=== PATIENT | female | born 1945 | race Caucasian/White ===

== ENCOUNTER 2016-04-24 10:50 | Emergency (ER) | payer MEDICARE, OTHER ==
[~2016-04-24 10:50] MED LIST: /ADVA50050; ACET-654 PO; ACET500C; ADV100INH INH; ADV250INH INH; AMLO10TA2 PO; DULC10SU2 PR; ECOT325T5; ENEMENE6 PR; IPRASOL4 INH; MELA0.02 PO; MILKSUS PO; NICO14DI3 TD; NICO21DI4; OMEP20CA3 PO; ONDA1TAB15 PO; ONDA1TAB16 PO; SALI0.653; SENN8.6T7 PO; SENN8.6T76 PO; SERT-141 PO; VITA500T; VITMTA PO; ZOLO25TA PO
[2016-04-24 11:56] LABS: BASO # 0.1 K/mm3 (0.0-0.2); BASO % 0.9 % (0.0-1.0); EOS # 0.2 K/mm3 (0.0-0.50); EOS % 2.1 % (0.0-3.0); LARGE UNSTAINED CELL # 0.3 K/mm3 (0.0-0.4); LARGE UNSTAINED CELL % 2.9 % (0.0-4.0); LYMPH # 3.2 K/mm3 (1.5-4.5); LYMPH % 36.6 % (24.0-44.0); MEAN CORPUSCULAR HEMOGLOBIN 31.7 pg (27.0-33.0); MEAN CORPUSCULAR HGB CONC 33.7 g/dl (32.0-36.5); MEAN CORPUSCULAR VOLUME 94.2 fl (80.0-96.0); MONO # 0.5 K/mm3 (0.0-0.8); MONO % 5.8 % (0.0-5.0); NEUTROPHILS # 4.5 K/mm3 (1.8-7.7); NEUTROPHILS % 51.7 % (36.0-66.0); PLATELET COUNT, AUTOMATED 375 k/mm3 (150-450); RED CELL DISTRIBUTION WIDTH 14.4 % (11.5-14.5); WHITE BLOOD COUNT 8.7 K/mm3 (4.0-10.0)
[2016-04-24 12:02] LABS: INR 0.97
[2016-04-24 12:08] LABS: ANION GAP 8 MEQ/L (8-16); BLOOD UREA NITROGEN 18 MG/DL (7-18); CALCIUM LEVEL 10.1 MG/DL (8.8-10.2); CARBON DIOXIDE LEVEL 29 MEQ/L (21-32); CHLORIDE LEVEL 101 MEQ/L (98-107); CREATININE FOR GFR 0.83 MG/DL (0.55-1.02); GLOMERULAR FILTRATION RATE > 60.0 (>39); GLUCOSE, FASTING 108 MG/DL (83-110); POTASSIUM SERUM 3.9 MEQ/L (3.5-5.1); SODIUM LEVEL 138 MEQ/L (136-145)
[2016-04-24 12:11] LABS: ALBUMIN 4.3 GM/DL (3.2-5.2); BILIRUBIN,DIRECT 0.2 MG/DL (0.0-0.2); BILIRUBIN,TOTAL 0.5 MG/DL (0.2-1.0); TOTAL PROTEIN 8.6 GM/DL (6.4-8.2)
--- NOTE | 2016-04-24 12:16 | REP ---
CT HEAD WITHOUT CONTRAST: HISTORY: Headache. COMPARISON: 04/17/2015. An area of decreased attenuation is present in the left thalamus. This represents an old lacunar infarction. Areas of decreased attenuation are present in the periventricular and subcortical white matter. This represents small vessel ischemic disease. There is no intraparenchymal hemorrhage, mass or midline shift. A shunt is present in the anterior horn of the right lateral ventricle. The ventricles are slightly increased in size consistent with minimal hydrocephalus. There is no extracerebral collection. The visualized sinuses are clear. 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 IMPRESSION: 1. 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 2. Small vessel ischemic disease. 3. A shunt is present in the right lateral ventricle. There has been a slight increase in size of the ventricular system consistent with minimal hydrocephalus. 4. 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 Signed by Fritz Mcclure MD 04/24/2016 12:19 P
--- NOTE | 2016-04-24 12:16 | REP ---
Clinical: Headache. Comparison: 03/07/2016 . Findings: The mediastinum and cardiac silhouette are stable and within normal limits for portable technique. The lung ulrich are clear without acute consolidation, effusion, or pneumothorax. Skeletal structures are intact. Ventriculoperitoneal shunt is identified and appears intact from the neck through the visualized upper abdomen. Impression: Normal portable chest x-ray Signed by Cordell Ramos MD 04/24/2016 12:08 P
--- NOTE | 2016-04-24 12:23 | REP ---
Clinical: Altered mental status. Comparison: 02/27/2016 Technique: AP and lateral views of the skull along with AP view of the abdomen. Findings: In conjunction with the chest x-ray, the ventriculoperitoneal shunt extending from the region of the right lateral ventricle along the right side of the body appears contiguous into the abdomen. Impression: Ventriculoperitoneal shunt appears contiguous from the calvarium into the right mid abdomen. Signed by Cordell Ramos MD 04/24/2016 12:14 P
[2016-04-24] MEDS ORDERED: MORPHINE 2 MG/ML 1ML SYRINGE As Ordered ONE (12:35)
--- NOTE | 2016-04-24 14:44 | EDDOCDS ---
Physician Documentation [facility] Name: Suad Murcia Age: 70 yrs Sex: Female : 1945 Arrival Date: 04/24/2016 Time: 10:50 Bed Radiology Private MD: Unknown, Family Disposition: 04/24/16 13:20 Transfer ordered to [facility]. Diagnosis are Hydrocephalus, Headache. - Reason for transfer: Higher level of care. - Accepting physician is Dr. Wright. - Condition is Critical. - Problem is new. - Symptoms are unchanged. Historical: - Allergies: SULFA (SULFONAMIDES); - Home Meds: 1. look at Dr. Currie list from [email or web address] 2. Tylenol 325 mg Oral tab 2 tabs every 4 hours as needed 3. amlodipine 10 mg Oral tab 1 tab once daily 4. multivitamin Oral tab 1 tablet daily 5. omeprazole 20 mg Oral cpDR 1 cap once daily 6. Zofran (as hydrochloride) 8 mg Oral tab 1 tab daily prn 7. Advair Diskus 250-50 mcg/dose Inhl dsdv 1 puff 2 times per day 8. Senna with Docusate Sodium 8.6-50 mg oral tab 1 tabs hs prn 9. Sertraline 50 mg nightly - PMHx: Cataracts; cerebrospinal fluid device; COPD; Hypertension; GERD; Osteoarthritis; shunt; - PSHx: Splenectomy; 3 brain surgeries; - Social history: Smoking status: Patient states former smoker of tobacco. No barriers to communication noted, The patient speaks fluent Hebrew, Speaks appropriately for age. - Family history: Not pertinent. - : The pt / caregiver states he / she is not on anticoagulants. Unable to Verify Home Med List with the patient / caregiver. Note see note. - Exposure Risk Screening:: None identified. Vital Signs: 04/24 10:52 BP 138 / 94; Pulse 103; Resp 18; Temp 99.1(O); Pulse Ox 95% ; Weight 51.71 kg / 114 cmb lbs; Height 5 ft. 1 in. (154.94 cm); Pain 9/10; 11:21 BP 141 / 75 (auto/); hs1 11:25 Pulse 90 MON; Pulse Ox 96% ; hs1 11:36 BP 145 / 70 (auto/); hs1 11:36 Pulse 90 MON; Pulse Ox 90% ; hs1 11:48 Pulse 84 MON; Pulse Ox 93% ; hs1 11:51 BP 120 / 72 (auto/); hs1 12:06 Pulse 86 MON; Pulse Ox 92% ; hs1 12:06 BP 125 / 70 (auto/); hs1 12:21 BP 118 / 63 (auto/); hs1 12:21 Pulse 88 MON; Pulse Ox 93% ; hs1 12:36 BP 154 / 79 (auto/); hs1 12:36 Pulse 86 MON; Pulse Ox 94% ; hs1 12:51 Pulse 84 MON; hs1 12:51 BP 139 / 77 (auto/); hs1 13:05 Pulse 78 MON; hs1 13:05 Pain 4/10; hs1 13:06 BP 139 / 73 (auto/); hs1 13:21 BP 136 / 78 (auto/); hs1 13:21 Pulse 82 MON; Pulse Ox 91% ; hs1 14:40 BP 133 / 79; Pulse 81; Resp 18; Temp 97.6(TE); Pulse Ox 98% on R/A; Pain 4/10; hs1 10:52 Body Mass Index 21.54 (51.71 kg, 154.94 cm) cmb MDM: 11:20 RN interventions must not delay CT ordered. ml 11:20 Funeral Home Assistant/Pulse Ox/q 15 min VS ordered. ml 11:20 Accucheck ordered. ml 11:20 IV Saline Lock ordered. ml 11:20 Patient must be on CC stretcher and weighed via bed scale ordered. ml 11:20 Rhythm Strip to chart ordered. ml 11:21 Basic Metabolic Profile Ordered. EDMS 11:21 CBC with Diff Ordered. EDMS 11:21 Partial Thromboplastin Time Ordered. EDMS 11:21 Prothrombin Time Profile\E\INR Ordered. EDMS 11:22 Chest, 1 View Ordered. EDMS 11:22 Type & Screen Ordered. EDMS 11:22 CT Head Without Contrast Ordered. EDMS 11:22 ECG WITH READING ER PHYS+CARDIAG ordered. EDMS 11:22 Ammonia (Little Green Tube on Ice, Not Pea Green) Ordered. EDMS 11:22 Liver Profile Ordered. EDMS 11:36 Shunt Series Ordered. EDMS 12:20 Troponin Ordered. EDMS 12:20 Lipase Ordered. EDMS 12:24 CBC with Diff Reviewed. br1 12:24 Liver Profile Reviewed. br1 12:24 Basic Metabolic Profile Reviewed. br1 12:24 Partial Thromboplastin Time Reviewed. br1 12:24 Prothrombin Time Profile\E\INR Reviewed. br1 12:24 Ammonia (Little Green Tube on Ice, Not Pea Green) Reviewed. br1 12:24 CT Head Without Contrast Reviewed. br1 12:24 Chest, 1 View Reviewed. br1 12:25 Urinalysis Ordered. EDMS 12:25 Urine Culture Ordered. EDMS 12:30 morphine 2 mg IVP once; prn pain ordered. br1 13:52 Financial registration complete. mm15 13:55 [facility] Payment Agreement was scanned into [employer] and attached to record. mm15 Administered Medications: 12:40 Drug: morphine 2 mg [morphine 2 mg/mL intravenous cartridge (1 mL)] Route: IVP; Site: hs1 left antecubital; 13:05 Follow up: Pain 4/10 Adult; Response: Pain is decreased hs1 Signatures: Dispatcher [employer] EDGege Jimenez MD MD ml Peters, Mary RN YOON [facility] Jaspreet Yates RN RN Bhavesh Renteria MD MD br1 Annette Crowley RN RN hs1 Krysta Schuler mm15 The chart was reviewed and I authenticate all verbal orders and agree with the evaluation and treatment provided.Corrections: (The following items were deleted from the chart) 11:54 11:20 Neuro VS q 15 Minutes ordered. ml ttb 11:54 11:20 Stroke assessment pack to bedside ordered. ml ttb Attachments: 13:55 [facility] Payment Agreement mm15 MTDD
--- NOTE | 2016-04-24 14:45 | EDDOCDS ---
Nurse's Notes [facility] Name: Suad Murcia Age: 70 yrs Sex: Female : 1945 Arrival Date: 04/24/2016 Time: 10:50 Bed Radiology Private MD: Rosemary, Family Diagnosis: Hydrocephalus;Headache Presentation: 04/24 11:08 Presenting complaint: Patient states: chronic headache due to aneurysms in head. was dy seen by Dr. Currie today and advised to come to ER for increased confusion with some neurologic deficits. This patient has no additional risk factors. Adult Sepsis Screening: The patient does not have new or worsening altered mentation. Patient's respiratory rate is less than 22. Systolic blood pressure is greater than 100. Patient has a qSOFA score of 0- Negative Sepsis Screen. Suicide/Homicide risk assessment- the patient denies having any suicidal and/or homicidal ideations and does not present with any other emotional, behavioral or mental health complaints. 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 Transition of care: patient was not received from another setting of care. 11:08 Acuity: TRINIDAD Level 3 dy 11:08 Method Of Arrival: Walkin/Carried/Asstd dy Triage Assessment: 11:11 Headache History: This patient has a history of headaches and the character of this dy headache is like all previous headaches. General: Appears in no apparent distress. Pain: Location: head Pain currently is 9 out of 10 on a pain scale. Pain began years ago. Also complains of inability to perform activities of daily living. Neurological: Level of Consciousness is awake, alert, obeys commands, Oriented to person, place, time. Historical: - Allergies: SULFA (SULFONAMIDES); - Home Meds: 1. look at Dr. Currie list from [employer] 2. Tylenol 325 mg Oral tab 2 tabs every 4 hours as needed 3. amlodipine 10 mg Oral tab 1 tab once daily 4. multivitamin Oral tab 1 tablet daily 5. omeprazole 20 mg Oral cpDR 1 cap once daily 6. Zofran (as hydrochloride) 8 mg Oral tab 1 tab daily prn 7. Advair Diskus 250-50 mcg/dose Inhl dsdv 1 puff 2 times per day 8. Senna with Docusate Sodium 8.6-50 mg oral tab 1 tabs hs prn 9. Sertraline 50 mg nightly - PMHx: Cataracts; cerebrospinal fluid device; COPD; Hypertension; GERD; Osteoarthritis; shunt; - PSHx: Splenectomy; 3 brain surgeries; - Social history: Smoking status: Patient states former smoker of tobacco. No barriers to communication noted, The patient speaks fluent Paraguayan, Speaks appropriately for age. - Family history: Not pertinent. - : The pt / caregiver states he / she is not on anticoagulants. Unable to Verify Home Med List with the patient / caregiver. Note see note. - Exposure Risk Screening:: None identified. Screenin:27 Screening information is obtained from the patient. Fall risk: No risks identified. hs1 Assistance ADL's: Requires assistance with. Abuse/DV Screen: The patient / caregiver reports he/she is: not in a situation that causes fear, pain or injury. Nutritional screening: No deficits noted. Advance Directives: Currently, there is. home support is adequate. Assessment: 11:24 General: Appears in no apparent distress, comfortable, Behavior is appropriate for age, hs1 cooperative. Pain: Location: face Pain currently is 9 out of 10 on a pain scale. Pain: Quality of pain is described as aching. Neurological: Level of Consciousness is awake, alert, obeys commands. Respiratory: Airway is patent Respiratory effort is even, unlabored, Respiratory pattern is regular, symmetrical. GI: to gravity drainage. Site clean. COOKS DRAIN located near gallbladder. Patient states was placed February 2016. Derm: Skin is pink, warm & dry. 11:43 General: labs drawn, IV started for primary RN. Daughter at bedside. Pt conversing ttb appropriately. A&Ox3. Slight headache. NAD noted.. 11:56 General: Patient to radiology for shunt series. MD aware. . hs1 12:47 General: Kidwai in to see patient at this time. Pt in distress and pain when he is hs1 palpating shunt. Patient complaining of intense pain, morphine administered at this time. . 13:08 General: Appears in no apparent distress, Behavior is appropriate for age, cooperative. hs1 Pain: Location: headache Pain currently is 4 out of 10 on a pain scale. Quality of pain is described as aching. Pain: Pain does not radiate. Is chronic Pain started over 2 weeks ago, and how not gotten better. Pt reports getting worse. Respiratory: Airway is patent Respiratory effort is even, unlabored, Respiratory pattern is regular, symmetrical, Derm: Skin is pink, warm & dry. normal. 14:05 General: Appears in no apparent distress, comfortable, Behavior is appropriate for age, hs1 cooperative. 14:05 Neurological: Level of Consciousness is awake, alert, obeys commands, Oriented to hs1 person, place, time, Could not remember day of the week, however understands April 2016 and is alert to person and place appropriately. . Internet Marketing Specialist are equal bilaterally Moves all extremities. Speech is normal, Facial symmetry appears normal. Respiratory: Airway is patent Respiratory effort is even, unlabored, Respiratory pattern is regular, symmetrical. Respiratory: Airway is patent Respiratory effort is even, unlabored, Respiratory pattern is regular, symmetrical, Breath sounds are coarse bilaterally. GI: Abdomen is non- distended to gravity drainage. Site clean. cooks drain to gall bladder. Derm: Skin is pink, warm & dry. normal. 14:30 General: Appears in no apparent distress, comfortable, no other needs noted at present. hs1 Patient resting and aware of transfer to [facility]. No questions at this time. . Neurological: Level of Consciousness is awake, alert, Facial symmetry appears normal. Respiratory: Airway is patent Respiratory effort is even, unlabored, Respiratory pattern is regular, symmetrical. Derm: Skin is pink, warm & dry. normal. Vital Signs: 10:52 BP 138 / 94; Pulse 103; Resp 18; Temp 99.1(O); Pulse Ox 95% ; Weight 51.71 kg; Height 5 cmb ft. 1 in. (154.94 cm); Pain 9/10; 11:21 BP 141 / 75 (auto/); hs1 11:25 Pulse 90 MON; Pulse Ox 96% ; hs1 11:36 BP 145 / 70 (auto/); hs1 11:36 Pulse 90 MON; Pulse Ox 90% ; hs1 11:48 Pulse 84 MON; Pulse Ox 93% ; hs1 11:51 BP 120 / 72 (auto/); hs1 12:06 Pulse 86 MON; Pulse Ox 92% ; hs1 12:06 BP 125 / 70 (auto/); hs1 12:21 BP 118 / 63 (auto/); hs1 12:21 Pulse 88 MON; Pulse Ox 93% ; hs1 12:36 BP 154 / 79 (auto/); hs1 12:36 Pulse 86 MON; Pulse Ox 94% ; hs1 12:51 Pulse 84 MON; hs1 12:51 BP 139 / 77 (auto/); hs1 13:05 Pulse 78 MON; hs1 13:05 Pain 4/10; hs1 13:06 BP 139 / 73 (auto/); hs1 13:21 BP 136 / 78 (auto/); hs1 13:21 Pulse 82 MON; Pulse Ox 91% ; hs1 14:40 BP 133 / 79; Pulse 81; Resp 18; Temp 97.6(TE); Pulse Ox 98% on R/A; Pain 4/10; hs1 10:52 Body Mass Index 21.54 (51.71 kg, 154.94 cm) cmb Vitals: 10:52 Log In Time: April 24, 2016 at 10:50. cmb ED Course: 10:51 Patient visited by Susan Grissom. cmb 10:51 Patient moved to Waiting cmb 10:52 Unknown, Family Dr is Private Physician. cmb 10:54 Patient moved to Pre RCE cmb 11:10 Triage Initiated dy 11:16 Patient moved to 13 mlb1 11:28 The patient / caregiver is instructed regarding the plan of care and ED course. hs1 11:31 Patient visited by Robyn Coulter PCA. jlf 11:31 EKG done. (by ED staff). Reviewed by Gege Wills MD. jlf 11:32 Patient visited by Robyn Coulter PCA. jlf 11:42 Liver Profile Sent. ttb 11:42 Ammonia (Little Green Tube on Ice, Not Pea Green) Sent. ttb 11:42 Basic Metabolic Profile Sent. ttb 11:42 CBC with Diff Sent. ttb 11:42 Partial Thromboplastin Time Sent. ttb 11:42 Prothrombin Time Profile\E\INR Sent. ttb 11:42 Type & Screen Sent. ttb 11:42 Inserted peripheral IV: 20gauge IV in left antecubital area and blood collected. ttb Patient tolerated the procedure well. Labs drawn. (by ED staff). 11:43 Patient visited by Sarahy Valle RN. ttb 11:56 Patient moved to Radiology hs1 12:02 Bhavesh Renteria MD is Attending Physician. br1 12:18 Patient visited by Bhavesh Renteria MD. br1 12:19 CT Head Without Contrast Returned. EDMS 12:19 Chest, 1 View Returned. EDMS 12:31 Troponin Sent. ttb 12:31 Lipase Sent. ttb 13:14 CT Head Without Contrast Returned. EDMS 13:14 Shunt Series Returned. EDMS 13:46 Report given to Jesse RAUSCH. hs1 13:55 [facility] Payment Agreement was scanned into [employer] and attached to record. mm15 14:40 No procedures done that require assistance. hs1 Administered Medications: 12:40 Drug: morphine 2 mg [morphine 2 mg/mL intravenous cartridge (1 mL)] Route: IVP; Site: hs1 left antecubital; 13:05 Follow up: Pain 07/22 Adult; Response: Pain is decreased hs1 Order Results: Lab Order: Basic Metabolic Profile; SPEC'M 04/24/16 11:38 Test: GLUCOSE, FASTING; Value: 108; Range: 83-110; Units: MG/DL; Status: F Test: BLOOD UREA NITROGEN; Value: 18; Range: 7-18; Units: MG/DL; Status: F Test: CREATININE FOR GFR; Value: 0.83; Range: 0.55-1.02; Units: MG/DL; Status: F Test: GLOMERULAR FILTRATION RATE; Value: > 60.0; Range: >39; Status: F Test: SODIUM LEVEL; Value: 138; Range: 136-145; Units: MEQ/L; Status: F Test: POTASSIUM SERUM; Value: 3.9; Range: 3.5-5.1; Units: MEQ/L; Status: F Test: CHLORIDE LEVEL; Value: 101; Range: 98-107; Units: MEQ/L; Status: F Test: CARBON DIOXIDE LEVEL; Value: 29; Range: 21-32; Units: MEQ/L; Status: F Test: ANION GAP; Value: 8; Range: 8-16; Units: MEQ/L; Status: F Test: CALCIUM LEVEL; Value: 10.1; Range: 8.8-10.2; Units: MG/DL; Status: F Test Note: ; Units are mL/min/1.73 m2 Chronic Kidney Disease Staging per NKF: Stage I & II GFR >=60 Normal to Mildly Decreased Stage III GFR 30-59 Moderately Decreased Stage IV GFR 15-29 Severely Decreased Stage V GFR <15 Very Little GFR Left ESRD GFR <15 on ORTHOPEDIC NURSE PRACTITIONER Lab Order: CBC with Diff; SPEC'M 04/24/16 11:38 Test: WHITE BLOOD COUNT; Value: 8.7; Range: 4.0-10.0; Units: K/mm3; Status: F Test: RED BLOOD COUNT; Value: 4.50; Range: 4.00-5.40; Units: M/mm3; Status: F Test: HEMOGLOBIN; Value: 14.3; Range: 12.0-16.0; Units: g/dl; Status: F Test: HEMATOCRIT; Value: 42.4; Range: 36.0-47.0; Units: %; Status: F Test: MEAN CORPUSCULAR VOLUME; Value: 94.2; Range: 80.0-96.0; Units: fl; Status: F Test: MEAN CORPUSCULAR HEMOGLOBIN; Value: 31.7; Range: 27.0-33.0; Units: pg; Status: F Test: MEAN CORPUSCULAR HGB CONC; Value: 33.7; Range: 32.0-36.5; Units: g/dl; Status: F Test: RED CELL DISTRIBUTION WIDTH; Value: 14.4; Range: 11.5-14.5; Units: %; Status: F Test: PLATELET COUNT, AUTOMATED; Value: 375; Range: 150-450; Units: k/mm3; Status: F Test: NEUTROPHILS %; Value: 51.7; Range: 36.0-66.0; Units: %; Status: F Test: LYMPH %; Value: 36.6; Range: 24.0-44.0; Units: %; Status: F Test: MONO %; Value: 5.8; Range: 0.0-5.0; Abnormal: Above high normal; Units: %; Status: F Test: EOS %; Value: 2.1; Range: 0.0-3.0; Units: %; Status: F Test: BASO %; Value: 0.9; Range: 0.0-1.0; Units: %; Status: F Test: LARGE UNSTAINED CELL %; Value: 2.9; Range: 0.0-4.0; Units: %; Status: F Test: NEUTROPHILS #; Value: 4.5; Range: 1.8-7.7; Units: K/mm3; Status: F Test: LYMPH #; Value: 3.2; Range: 1.5-4.5; Units: K/mm3; Status: F Test: MONO #; Value: 0.5; Range: 0.0-0.8; Units: K/mm3; Status: F Test: EOS #; Value: 0.2; Range: 0.0-0.50; Units: K/mm3; Status: F Test: BASO #; Value: 0.1; Range: 0.0-0.2; Units: K/mm3; Status: F Test: LARGE UNSTAINED CELL #; Value: 0.3; Range: 0.0-0.4; Units: K/mm3; Status: F Lab Order: Partial Thromboplastin Time; 04/24/16 11:38 Test: PARTIAL THROMBOPLASTIN TIME; Value: 29.8; Range: 26.6-37.1; Units: SECONDS; Status: F Lab Order: Prothrombin Time Profile\E\INR; 04/24/16 11:38 Test: PROTHROMBIN TIME; Value: 13.0; Range: 12.3-14.5; Units: SECONDS; Status: F Test: INR; Value: 0.97; Status: F Test Note: ; THERAPUTIC HUMAN INR VALUES INDICATIONS NORMAL RANGES PROPHYLAXIS/TREATMENT OF: VENOUS THROMBOSIS 2.0-3.0 PULMONARY EMBOLISM 2.0-3.0 PREVENTION OF SYSTEMIC EMBOLISM FROM: TISSUE HEART VALVES 2.0-3.0 ACUTE MYOCARDIAL INFARCTION 2.0-3.0 VALVULAR HEART DISEASE 2.0-3.0 ATRIAL FIBRILLATION 2.0-3.0 MECHANICAL VALVES(HIGH RISK) 2.5-3.5 RECURRENT MYOCARDIAL INFARCTION 2.5-3.5 Lab Order: Type & Screen; 04/24/16 11:38 Test: BLOOD TYPE; Value: A NEG; Status: F Test: AB SCREEN (INDIRECT LEONIDES)GEL; Value: NEGATIVE; Status: F Lab Order: Ammonia (Little Green Tube on Ice, Not Pea Green); 04/24/16 11:38 Test: AMMONIA; Value: 23; Range: <32; Units: uMOL/L; Status: F Lab Order: Liver Profile; 04/24/16 11:38 Test: AST/SGOT; Value: 25; Range: 15-37; Units: U/L; Status: F Test: ALT/SGPT; Value: 23; Range: 12-78; Units: U/L; Status: F Test: ALKALINE PHOSPHATASE; Value: 88; Range: 45-117; Units: U/L; Status: F Test: BILIRUBIN,TOTAL; Value: 0.5; Range: 0.2-1.0; Units: MG/DL; Status: F Test: BILIRUBIN,DIRECT; Value: 0.2; Range: 0.0-0.2; Units: MG/DL; Status: F Test: TOTAL PROTEIN; Value: 8.6; Range: 6.4-8.2; Abnormal: Above high normal; Units: GM/DL; Status: F Test: ALBUMIN; Value: 4.3; Range: 3.2-5.2; Units: GM/DL; Status: F Test: ALBUMIN/GLOBULIN RATIO; Value: 1.00; Range: 1.00-1.93; Status: F Lab Order: Troponin; SPEC'M 04/24/16 11:38 Test: TROPONIN I; Value: < 0.02; Range: < 0.10; Units: NG/ML; Status: F Test Note: ; Troponin I Reference Interval for [facility] LOCI: 99th Percentile= 0.00-0.045 ng/ml Risk Stratification: <= 0.10 ng/ml Decreased Risk for Adverse Clinical Events. 0.10-1.50 ng/ml Increased Risk for Adverse Clinical Events. Evaluation of additional criterion and/or repeat testing in 2-6 hours is suggested to rule out myocardial damage. >= 1.50 ng/ml Indicative of Myocardial Injury. Lab Order: Lipase; SPEC'M 04/24/16 11:38 Test: LIPASE; Value: 115; Range: 73-393; Units: U/L; Status: F Radiology Order: CT Head Without Contrast Test: CT Head Without Contrast REASON FOR EXAMINATION: jimenez, confusion, hx of aneurysm; CT HEAD WITHOUT CONTRAST:; ; HISTORY: Headache.; ; COMPARISON: 04/17/2015.; ; An area of decreased attenuation is present in the left thalamus. This; represents an old lacunar infarction. Areas of decreased attenuation are present; in the periventricular and subcortical white matter. This represents small; vessel ischemic disease. There is no intraparenchymal hemorrhage, mass or; midline shift. A shunt is present in the anterior horn of the right lateral; ventricle. The ventricles are slightly increased in size consistent with minimal; hydrocephalus. There is no extracerebral collection. The visualized sinuses are; clear. The patient is status post coiling of supraclinoid right internal; carotid and basilar artery aneurysms.; ; IMPRESSION:; ; 1. 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 Small vessel ischemic disease.; ; 3. A shunt is present in the right lateral ventricle. There has been a slight; increase in size of the ventricular system consistent with minimal hydrocephalus.; ; ; 4. The patient is status post coiling of right supraclinoid internal carotid; artery and basilar artery aneurysms.; ; ; Signed by; Fritz Mcclure MD 04/24/2016 12:19 P; Radiology Order: Chest, 1 View Test: Chest, 1 View REASON FOR EXAMINATION: jimenez; Clinical: Headache.; ; Comparison: 03/07/2016 .; ; Findings:; The mediastinum and cardiac silhouette are stable and within normal limits for; portable technique. The lung ulrich are clear without acute consolidation,; effusion, or pneumothorax. Skeletal structures are intact. Ventriculoperitoneal; shunt is identified and appears intact from the neck through the visualized upper; abdomen.; ; Impression:; Normal portable chest x-ray; ; ; Signed by; Cordell Ramos MD 04/24/2016 12:08 P; Radiology Order: Shunt Series Test: Shunt Series REASON FOR EXAMINATION: altered ms; Clinical: Altered mental status.; ; Comparison: 02/27/2016; ; Technique: AP and lateral views of the skull along with AP view of the abdomen.; ; Findings:; In conjunction with the chest x-ray, the ventriculoperitoneal shunt extending; from the region of the right lateral ventricle along the right side of the body; appears contiguous into the abdomen.; ; Impression:; Ventriculoperitoneal shunt appears contiguous from the calvarium into the right; mid abdomen.; ; ; Signed by; Cordell Ramos MD 04/24/2016 12:14 P; Outcome: 13:20 ER care complete, transfer ordered by Provider. br1 13:23 CT Study completed. hs1 14:32 Discharge Assessment: patient administered narcotics - yes. Patient was admitted to the [facility] hospital or transferred to another facility. The following High Risk Discharge criteria are identified: None. Transferred to [facility]. by EMS ground [place] ambulance report to accompanying personnel Rand Hyde and Manda KLEIN. Condition: unchanged. Property :Personal belongings accompany Pt. 14:43 Patient left the ED. [facility] Signatures: Dispatcher [employer] EDCarmen Gaviria RN Jaspreet Schmitz mcp RN Arvin Steele RN RN mlb1 Bhavesh Renteria MD MD br1 Annette Crowley RN RN hs1 Susan Grissom Teresa, RN RN Krysta Ortiz mm15 Robyn Coulter PCA PCA jlf GINGER
--- NOTE | 2016-04-24 18:09 | ECGEPIP ---
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
--- NOTE | 2016-04-26 15:44 | EDDOCDS ---
Physician Documentation [facility] Name: Suad Murcia Age: 70 yrs Sex: Female : 1945 Arrival Date: 04/24/2016 Time: 10:50 Bed Radiology Private MD: Unknown, Family Disposition: 04/24/16 13:20 Transfer ordered to [facility]. Diagnosis are Hydrocephalus, Headache. - Reason for transfer: Higher level of care. - Accepting physician is Dr. Wright. - Condition is Critical. - Problem is new. - Symptoms are unchanged. Historical: - Allergies: SULFA (SULFONAMIDES); - Home Meds: 1. look at Dr. Currie list from [facility] 2. Tylenol 325 mg Oral tab 2 tabs every 4 hours as needed 3. amlodipine 10 mg Oral tab 1 tab once daily 4. multivitamin Oral tab 1 tablet daily 5. omeprazole 20 mg Oral cpDR 1 cap once daily 6. Zofran (as hydrochloride) 8 mg Oral tab 1 tab daily prn 7. Advair Diskus 250-50 mcg/dose Inhl dsdv 1 puff 2 times per day 8. Senna with Docusate Sodium 8.6-50 mg oral tab 1 tabs hs prn 9. Sertraline 50 mg nightly - PMHx: Cataracts; cerebrospinal fluid device; COPD; Hypertension; GERD; Osteoarthritis; shunt; - PSHx: Splenectomy; 3 brain surgeries; - Social history: Smoking status: Patient states former smoker of tobacco. No barriers to communication noted, The patient speaks fluent Georgian, Speaks appropriately for age. - Family history: Not pertinent. - : The pt / caregiver states he / she is not on anticoagulants. Unable to Verify Home Med List with the patient / caregiver. Note see note. - Exposure Risk Screening:: None identified. Vital Signs: 04/24 10:52 BP 138 / 94; Pulse 103; Resp 18; Temp 99.1(O); Pulse Ox 95% ; Weight 51.71 kg / 114 cmb lbs; Height 5 ft. 1 in. (154.94 cm); Pain 9/10; 11:21 BP 141 / 75 (auto/); hs1 11:25 Pulse 90 MON; Pulse Ox 96% ; hs1 11:36 BP 145 / 70 (auto/); hs1 11:36 Pulse 90 MON; Pulse Ox 90% ; hs1 11:48 Pulse 84 MON; Pulse Ox 93% ; hs1 11:51 BP 120 / 72 (auto/); hs1 12:06 Pulse 86 MON; Pulse Ox 92% ; hs1 12:06 BP 125 / 70 (auto/); hs1 12:21 BP 118 / 63 (auto/); hs1 12:21 Pulse 88 MON; Pulse Ox 93% ; hs1 12:36 BP 154 / 79 (auto/); hs1 12:36 Pulse 86 MON; Pulse Ox 94% ; hs1 12:51 Pulse 84 MON; hs1 12:51 BP 139 / 77 (auto/); hs1 13:05 Pulse 78 MON; hs1 13:05 Pain 4/10; hs1 13:06 BP 139 / 73 (auto/); hs1 13:21 BP 136 / 78 (auto/); hs1 13:21 Pulse 82 MON; Pulse Ox 91% ; hs1 14:40 BP 133 / 79; Pulse 81; Resp 18; Temp 97.6(TE); Pulse Ox 98% on R/A; Pain 4/10; hs1 10:52 Body Mass Index 21.54 (51.71 kg, 154.94 cm) cmb MDM: 11:20 RN interventions must not delay CT ordered. ml 11:20 Auction Clerk/Pulse Ox/q 15 min VS ordered. ml 11:20 Accucheck ordered. ml 11:20 IV Saline Lock ordered. ml 11:20 Patient must be on CC stretcher and weighed via bed scale ordered. ml 11:20 Rhythm Strip to chart ordered. ml 11:21 Basic Metabolic Profile Ordered. EDMS 11:21 CBC with Diff Ordered. EDMS 11:21 Partial Thromboplastin Time Ordered. EDMS 11:21 Prothrombin Time Profile\E\INR Ordered. EDMS 11:22 Chest, 1 View Ordered. EDMS 11:22 Type & Screen Ordered. EDMS 11:22 CT Head Without Contrast Ordered. EDMS 11:22 ECG WITH READING ER PHYS+CARDIAG ordered. EDMS 11:22 Ammonia (Little Green Tube on Ice, Not Pea Green) Ordered. EDMS 11:22 Liver Profile Ordered. EDMS 11:36 Shunt Series Ordered. EDMS 12:20 Troponin Ordered. EDMS 12:20 Lipase Ordered. EDMS 12:24 CBC with Diff Reviewed. br1 12:24 Liver Profile Reviewed. br1 12:24 Basic Metabolic Profile Reviewed. br1 12:24 Partial Thromboplastin Time Reviewed. br1 12:24 Prothrombin Time Profile\E\INR Reviewed. br1 12:24 Ammonia (Little Green Tube on Ice, Not Pea Green) Reviewed. br1 12:24 CT Head Without Contrast Reviewed. br1 12:24 Chest, 1 View Reviewed. br1 12:25 Urinalysis Ordered. EDMS 12:25 Urine Culture Ordered. EDMS 12:30 morphine 2 mg IVP once; prn pain ordered. br1 13:52 Financial registration complete. mm15 13:55 [facility] Payment Agreement was scanned into [employer] and attached to record. mm15 15:16 T-Sheet-- Draft Copy was scanned into [employer] and attached to record. gb 15:16 ECG/EKG was scanned into [employer] and attached to record. gb 15:17 Trend VS was scanned into [employer] and attached to record. gb Administered Medications: 12:40 Drug: morphine 2 mg [morphine 2 mg/mL intravenous cartridge (1 mL)] Route: IVP; Site: hs1 left antecubital; 13:05 Follow up: Pain 4/10 Adult; Response: Pain is decreased hs1 Signatures: Dispatcher [employer] EDMS Gege Wills MD MD ml Peters, Mary, RN RN [facility] Gianna Mcconnell, Reg Reg Jaspreet Yates RN RN dy Roggie, Brian, MD MD br1 Annette Crowley RN RN hs1 Krysta Schuler mm15 The chart was reviewed and I authenticate all verbal orders and agree with the evaluation and treatment provided.Corrections: (The following items were deleted from the chart) 11:54 11:20 Neuro VS q 15 Minutes ordered. ml ttb 11:54 11:20 Stroke assessment pack to bedside ordered. ml ttb Attachments: 13:55 [facility] Payment Agreement mm15 15:16 T-Sheet-- Draft Copy gb 15:16 ECG/EKG gb Chart Complete MTDD
--- NOTE | 2016-04-26 15:44 | EDDOCDS ---
Physician Documentation [facility] Name: Suad Murcia Age: 70 yrs Sex: Female : 1945 Arrival Date: 04/24/2016 Time: 10:50 Bed Radiology Private MD: Unknown, Family Disposition: 04/24/16 13:20 Transfer ordered to [facility]. Diagnosis are Hydrocephalus, Headache. - Reason for transfer: Higher level of care. - Accepting physician is Dr. Wright. - Condition is Critical. - Problem is new. - Symptoms are unchanged. Historical: - Allergies: SULFA (SULFONAMIDES); - Home Meds: 1. look at Dr. Currie list from [employer] 2. Tylenol 325 mg Oral tab 2 tabs every 4 hours as needed 3. amlodipine 10 mg Oral tab 1 tab once daily 4. multivitamin Oral tab 1 tablet daily 5. omeprazole 20 mg Oral cpDR 1 cap once daily 6. Zofran (as hydrochloride) 8 mg Oral tab 1 tab daily prn 7. Advair Diskus 250-50 mcg/dose Inhl dsdv 1 puff 2 times per day 8. Senna with Docusate Sodium 8.6-50 mg oral tab 1 tabs hs prn 9. Sertraline 50 mg nightly - PMHx: Cataracts; cerebrospinal fluid device; COPD; Hypertension; GERD; Osteoarthritis; shunt; - PSHx: Splenectomy; 3 brain surgeries; - Social history: Smoking status: Patient states former smoker of tobacco. No barriers to communication noted, The patient speaks fluent Yi, Speaks appropriately for age. - Family history: Not pertinent. - : The pt / caregiver states he / she is not on anticoagulants. Unable to Verify Home Med List with the patient / caregiver. Note see note. - Exposure Risk Screening:: None identified. Vital Signs: 04/24 10:52 BP 138 / 94; Pulse 103; Resp 18; Temp 99.1(O); Pulse Ox 95% ; Weight 51.71 kg / 114 cmb lbs; Height 5 ft. 1 in. (154.94 cm); Pain 9/10; 11:21 BP 141 / 75 (auto/); hs1 11:25 Pulse 90 MON; Pulse Ox 96% ; hs1 11:36 BP 145 / 70 (auto/); hs1 11:36 Pulse 90 MON; Pulse Ox 90% ; hs1 11:48 Pulse 84 MON; Pulse Ox 93% ; hs1 11:51 BP 120 / 72 (auto/); hs1 12:06 Pulse 86 MON; Pulse Ox 92% ; hs1 12:06 BP 125 / 70 (auto/); hs1 12:21 BP 118 / 63 (auto/); hs1 12:21 Pulse 88 MON; Pulse Ox 93% ; hs1 12:36 BP 154 / 79 (auto/); hs1 12:36 Pulse 86 MON; Pulse Ox 94% ; hs1 12:51 Pulse 84 MON; hs1 12:51 BP 139 / 77 (auto/); hs1 13:05 Pulse 78 MON; hs1 13:05 Pain 4/10; hs1 13:06 BP 139 / 73 (auto/); hs1 13:21 BP 136 / 78 (auto/); hs1 13:21 Pulse 82 MON; Pulse Ox 91% ; hs1 14:40 BP 133 / 79; Pulse 81; Resp 18; Temp 97.6(TE); Pulse Ox 98% on R/A; Pain 4/10; hs1 10:52 Body Mass Index 21.54 (51.71 kg, 154.94 cm) cmb MDM: 11:20 RN interventions must not delay CT ordered. ml 11:20 Pipe Coverer/Pulse Ox/q 15 min VS ordered. ml 11:20 Accucheck ordered. ml 11:20 IV Saline Lock ordered. ml 11:20 Patient must be on CC stretcher and weighed via bed scale ordered. ml 11:20 Rhythm Strip to chart ordered. ml 11:21 Basic Metabolic Profile Ordered. EDMS 11:21 CBC with Diff Ordered. EDMS 11:21 Partial Thromboplastin Time Ordered. EDMS 11:21 Prothrombin Time Profile\E\INR Ordered. EDMS 11:22 Chest, 1 View Ordered. EDMS 11:22 Type & Screen Ordered. EDMS 11:22 CT Head Without Contrast Ordered. EDMS 11:22 ECG WITH READING ER PHYS+CARDIAG ordered. EDMS 11:22 Ammonia (Little Green Tube on Ice, Not Pea Green) Ordered. EDMS 11:22 Liver Profile Ordered. EDMS 11:36 Shunt Series Ordered. EDMS 12:20 Troponin Ordered. EDMS 12:20 Lipase Ordered. EDMS 12:24 CBC with Diff Reviewed. br1 12:24 Liver Profile Reviewed. br1 12:24 Basic Metabolic Profile Reviewed. br1 12:24 Partial Thromboplastin Time Reviewed. br1 12:24 Prothrombin Time Profile\E\INR Reviewed. br1 12:24 Ammonia (Little Green Tube on Ice, Not Pea Green) Reviewed. br1 12:24 CT Head Without Contrast Reviewed. br1 12:24 Chest, 1 View Reviewed. br1 12:25 Urinalysis Ordered. EDMS 12:25 Urine Culture Ordered. EDMS 12:30 morphine 2 mg IVP once; prn pain ordered. br1 13:52 Financial registration complete. mm15 13:55 [facility] Payment Agreement was scanned into [employer] and attached to record. mm15 15:16 T-Sheet-- Draft Copy was scanned into [employer] and attached to record. gb 15:16 ECG/EKG was scanned into [employer] and attached to record. gb 15:17 Trend VS was scanned into [employer] and attached to record. gb Administered Medications: 12:40 Drug: morphine 2 mg [morphine 2 mg/mL intravenous cartridge (1 mL)] Route: IVP; Site: hs1 left antecubital; 13:05 Follow up: Pain 4/10 Adult; Response: Pain is decreased hs1 Signatures: Dispatcher [employer] EDMS Gege Wills MD MD ml Peters, Mary, RN RN [facility] Gianna Mcconnell, Reg Reg Jaspreet Yates RN RN dy Roggie, Brian, MD MD br1 Annette Crowley RN RN hs1 Krysta Schuler mm15 The chart was reviewed and I authenticate all verbal orders and agree with the evaluation and treatment provided.Corrections: (The following items were deleted from the chart) 11:54 11:20 Neuro VS q 15 Minutes ordered. ml ttb 11:54 11:20 Stroke assessment pack to bedside ordered. ml ttb Attachments: 13:55 [facility] Payment Agreement mm15 15:16 T-Sheet-- Draft Copy gb 15:16 ECG/EKG gb Chart Complete MTDD
--- NOTE | 2016-04-26 15:45 | EDDOCDS ---
Nurse's Notes 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 was dy seen by Dr. Currie today and advised to come to ER for increased confusion with some neurologic deficits. This patient has no additional risk factors. Adult Sepsis Screening: The patient does not have new or worsening altered mentation. Patient's respiratory rate is less than 22. Systolic blood pressure is greater than 100. Patient has a qSOFA score of 0- Negative Sepsis Screen. Suicide/Homicide risk assessment- the patient denies having any suicidal and/or homicidal ideations and does not present with any other emotional, behavioral or mental health complaints. 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 Transition of care: patient was not received from another setting of care. 11:08 Acuity: TRINIDAD Level 3 dy 11:08 Method Of Arrival: Walkin/Carried/Asstd dy Triage Assessment: 11:11 Headache History: This patient has a history of headaches and the character of this dy headache is like all previous headaches. General: Appears in no apparent distress. Pain: Location: head Pain currently is 9 out of 10 on a pain scale. Pain began years ago. Also complains of inability to perform activities of daily living. Neurological: Level of Consciousness is awake, alert, obeys commands, Oriented to person, place, time. Historical: - Allergies: SULFA (SULFONAMIDES); - Home Meds: 1. look at Dr. Currie list from [employer] 2. Tylenol 325 mg Oral tab 2 tabs every 4 hours as needed 3. amlodipine 10 mg Oral tab 1 tab once daily 4. multivitamin Oral tab 1 tablet daily 5. omeprazole 20 mg Oral cpDR 1 cap once daily 6. Zofran (as hydrochloride) 8 mg Oral tab 1 tab daily prn 7. Advair Diskus 250-50 mcg/dose Inhl dsdv 1 puff 2 times per day 8. Senna with Docusate Sodium 8.6-50 mg oral tab 1 tabs hs prn 9. Sertraline 50 mg nightly - PMHx: Cataracts; cerebrospinal fluid device; COPD; Hypertension; GERD; Osteoarthritis; shunt; - PSHx: Splenectomy; 3 brain surgeries; - Social history: Smoking status: Patient states former smoker of tobacco. No barriers to communication noted, The patient speaks fluent Slovak, Speaks appropriately for age. - Family history: Not pertinent. - : The pt / caregiver states he / she is not on anticoagulants. Unable to Verify Home Med List with the patient / caregiver. Note see note. - Exposure Risk Screening:: None identified. Screenin:27 Screening information is obtained from the patient. Fall risk: No risks identified. hs1 Assistance ADL's: Requires assistance with. Abuse/DV Screen: The patient / caregiver reports he/she is: not in a situation that causes fear, pain or injury. Nutritional screening: No deficits noted. Advance Directives: Currently, there is. home support is adequate. Assessment: 11:24 General: Appears in no apparent distress, comfortable, Behavior is appropriate for age, hs1 cooperative. Pain: Location: face Pain currently is 9 out of 10 on a pain scale. Pain: Quality of pain is described as aching. Neurological: Level of Consciousness is awake, alert, obeys commands. Respiratory: Airway is patent Respiratory effort is even, unlabored, Respiratory pattern is regular, symmetrical. GI: to gravity drainage. Site clean. COOKS DRAIN located near gallbladder. Patient states was placed February 2016. Derm: Skin is pink, warm & dry. 11:43 General: labs drawn, IV started for primary RN. Daughter at bedside. Pt conversing ttb appropriately. A&Ox3. Slight headache. NAD noted.. 11:56 General: Patient to radiology for shunt series. MD aware. . hs1 12:47 General: Kidwai in to see patient at this time. Pt in distress and pain when he is hs1 palpating shunt. Patient complaining of intense pain, morphine administered at this time. . 13:08 General: Appears in no apparent distress, Behavior is appropriate for age, cooperative. hs1 Pain: Location: headache Pain currently is 4 out of 10 on a pain scale. Quality of pain is described as aching. Pain: Pain does not radiate. Is chronic Pain started over 2 weeks ago, and how not gotten better. Pt reports getting worse. Respiratory: Airway is patent Respiratory effort is even, unlabored, Respiratory pattern is regular, symmetrical, Derm: Skin is pink, warm & dry. normal. 14:05 General: Appears in no apparent distress, comfortable, Behavior is appropriate for age, hs1 cooperative. 14:05 Neurological: Level of Consciousness is awake, alert, obeys commands, Oriented to hs1 person, place, time, Could not remember day of the week, however understands April 2016 and is alert to person and place appropriately. . 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 Speech is normal, Facial symmetry appears normal. Respiratory: Airway is patent Respiratory effort is even, unlabored, Respiratory pattern is regular, symmetrical. Respiratory: Airway is patent Respiratory effort is even, unlabored, Respiratory pattern is regular, symmetrical, Breath sounds are coarse bilaterally. GI: Abdomen is non- distended to gravity drainage. Site clean. cooks drain to gall bladder. Derm: Skin is pink, warm & dry. normal. 14:30 General: Appears in no apparent distress, comfortable, no other needs noted at present. hs1 Patient resting and aware of transfer to [facility]. No questions at this time. . Neurological: Level of Consciousness is awake, alert, Facial symmetry appears normal. Respiratory: Airway is patent Respiratory effort is even, unlabored, Respiratory pattern is regular, symmetrical. Derm: Skin is pink, warm & dry. normal. Vital Signs: 10:52 BP 138 / 94; Pulse 103; Resp 18; Temp 99.1(O); Pulse Ox 95% ; Weight 51.71 kg; Height 5 cmb ft. 1 in. (154.94 cm); Pain 9/10; 11:21 BP 141 / 75 (auto/); hs1 11:25 Pulse 90 MON; Pulse Ox 96% ; hs1 11:36 BP 145 / 70 (auto/); hs1 11:36 Pulse 90 MON; Pulse Ox 90% ; hs1 11:48 Pulse 84 MON; Pulse Ox 93% ; hs1 11:51 BP 120 / 72 (auto/); hs1 12:06 Pulse 86 MON; Pulse Ox 92% ; hs1 12:06 BP 125 / 70 (auto/); hs1 12:21 BP 118 / 63 (auto/); hs1 12:21 Pulse 88 MON; Pulse Ox 93% ; hs1 12:36 BP 154 / 79 (auto/); hs1 12:36 Pulse 86 MON; Pulse Ox 94% ; hs1 12:51 Pulse 84 MON; hs1 12:51 BP 139 / 77 (auto/); hs1 13:05 Pulse 78 MON; hs1 13:05 Pain 4/10; hs1 13:06 BP 139 / 73 (auto/); hs1 13:21 BP 136 / 78 (auto/); hs1 13:21 Pulse 82 MON; Pulse Ox 91% ; hs1 14:40 BP 133 / 79; Pulse 81; Resp 18; Temp 97.6(TE); Pulse Ox 98% on R/A; Pain 4/10; hs1 10:52 Body Mass Index 21.54 (51.71 kg, 154.94 cm) cmb Vitals: 10:52 Log In Time: April 24, 2016 at 10:50. cmb ED Course: 10:51 Patient visited by Susan Grissom. cmb 10:51 Patient moved to Waiting cmb 10:52 Unknown, Family Dr is Private Physician. cmb 10:54 Patient moved to Pre RCE cmb 11:10 Triage Initiated dy 11:16 Patient moved to 13 mlb1 11:28 The patient / caregiver is instructed regarding the plan of care and ED course. hs1 11:31 Patient visited by Robyn Coulter PCA. jlf 11:31 EKG done. (by ED staff). Reviewed by Gege Wills MD. jlf 11:32 Patient visited by Robyn Coulter PCA. jlf 11:42 Liver Profile Sent. ttb 11:42 Ammonia ([place] Tube on Ice, Not Pea Green) Sent. ttb 11:42 Basic Metabolic Profile Sent. ttb 11:42 CBC with Diff Sent. ttb 11:42 Partial Thromboplastin Time Sent. ttb 11:42 Prothrombin Time Profile\E\INR Sent. ttb 11:42 Type & Screen Sent. ttb 11:42 Inserted peripheral IV: 20gauge IV in left antecubital area and blood collected. ttb Patient tolerated the procedure well. Labs drawn. (by ED staff). 11:43 Patient visited by Sarahy Valle RN. ttb 11:56 Patient moved to Radiology hs1 12:02 Bhavesh Renteria MD is Attending Physician. br1 12:18 Patient visited by Bhavesh Renteria MD. br1 12:19 CT Head Without Contrast Returned. EDMS 12:19 Chest, 1 View Returned. EDMS 12:31 Troponin Sent. ttb 12:31 Lipase Sent. ttb 13:14 CT Head Without Contrast Returned. EDMS 13:14 Shunt Series Returned. EDMS 13:46 Report given to Jesse RAUSCH. hs1 13:55 ID-EM Payment Agreement was scanned into [employer] and attached to record. mm15 14:40 No procedures done that require assistance. hs1 15:16 T-Sheet-- Draft Copy was scanned into [employer] and attached to record. gb 15:16 ECG/EKG was scanned into [employer] and attached to record. gb 15:17 Trend VS was scanned into [employer] and attached to record. gb 19:13 ELECTROCARDIOGRAM ADULT Returned. EDMS Administered Medications: 12:40 Drug: morphine 2 mg [morphine 2 mg/mL intravenous cartridge (1 mL)] Route: IVP; Site: hs1 left antecubital; 13:05 Follow up: Pain 4/10 Adult; Response: Pain is decreased hs1 Attachments: 15:17 Trend VS gb Order Results: Lab Order: Basic Metabolic Profile; SPEC'M 04/24/16 11:38 Test: GLUCOSE, FASTING; Value: 108; Range: 83-110; Units: MG/DL; Status: F Test: BLOOD UREA NITROGEN; Value: 18; Range: 7-18; Units: MG/DL; Status: F Test: CREATININE FOR GFR; Value: 0.83; Range: 0.55-1.02; Units: MG/DL; Status: F Test: GLOMERULAR FILTRATION RATE; Value: > 60.0; Range: >39; Status: F Test: SODIUM LEVEL; Value: 138; Range: 136-145; Units: MEQ/L; Status: F Test: POTASSIUM SERUM; Value: 3.9; Range: 3.5-5.1; Units: MEQ/L; Status: F Test: CHLORIDE LEVEL; Value: 101; Range: 98-107; Units: MEQ/L; Status: F Test: CARBON DIOXIDE LEVEL; Value: 29; Range: 21-32; Units: MEQ/L; Status: F Test: ANION GAP; Value: 8; Range: 8-16; Units: MEQ/L; Status: F Test: CALCIUM LEVEL; Value: 10.1; Range: 8.8-10.2; Units: MG/DL; Status: F Test Note: ; Units are mL/min/1.73 m2 Chronic Kidney Disease Staging per NKF: Stage I & II GFR >=60 Normal to Mildly Decreased Stage III GFR 30-59 Moderately Decreased Stage IV GFR 15-29 Severely Decreased Stage V GFR <15 Very Little GFR Left ESRD GFR <15 on ROPEWALK ROPE MAKER Lab Order: CBC with Diff; SPEC'M 04/24/16 11:38 Test: WHITE BLOOD COUNT; Value: 8.7; Range: 4.0-10.0; Units: K/mm3; Status: F Test: RED BLOOD COUNT; Value: 4.50; Range: 4.00-5.40; Units: M/mm3; Status: F Test: HEMOGLOBIN; Value: 14.3; Range: 12.0-16.0; Units: g/dl; Status: F Test: HEMATOCRIT; Value: 42.4; Range: 36.0-47.0; Units: %; Status: F Test: MEAN CORPUSCULAR VOLUME; Value: 94.2; Range: 80.0-96.0; Units: fl; Status: F Test: MEAN CORPUSCULAR HEMOGLOBIN; Value: 31.7; Range: 27.0-33.0; Units: pg; Status: F Test: MEAN CORPUSCULAR HGB CONC; Value: 33.7; Range: 32.0-36.5; Units: g/dl; Status: F Test: RED CELL DISTRIBUTION WIDTH; Value: 14.4; Range: 11.5-14.5; Units: %; Status: F Test: PLATELET COUNT, AUTOMATED; Value: 375; Range: 150-450; Units: k/mm3; Status: F Test: NEUTROPHILS %; Value: 51.7; Range: 36.0-66.0; Units: %; Status: F Test: LYMPH %; Value: 36.6; Range: 24.0-44.0; Units: %; Status: F Test: MONO %; Value: 5.8; Range: 0.0-5.0; Abnormal: Above high normal; Units: %; Status: F Test: EOS %; Value: 2.1; Range: 0.0-3.0; Units: %; Status: F Test: BASO %; Value: 0.9; Range: 0.0-1.0; Units: %; Status: F Test: LARGE UNSTAINED CELL %; Value: 2.9; Range: 0.0-4.0; Units: %; Status: F Test: NEUTROPHILS #; Value: 4.5; Range: 1.8-7.7; Units: K/mm3; Status: F Test: LYMPH #; Value: 3.2; Range: 1.5-4.5; Units: K/mm3; Status: F Test: MONO #; Value: 0.5; Range: 0.0-0.8; Units: K/mm3; Status: F Test: EOS #; Value: 0.2; Range: 0.0-0.50; Units: K/mm3; Status: F Test: BASO #; Value: 0.1; Range: 0.0-0.2; Units: K/mm3; Status: F Test: LARGE UNSTAINED CELL #; Value: 0.3; Range: 0.0-0.4; Units: K/mm3; Status: F Lab Order: Partial Thromboplastin Time; [facility] WITH [facility] 04/24/16 11:38 Test: PARTIAL THROMBOPLASTIN TIME; Value: 29.8; Range: 26.6-37.1; Units: SECONDS; Status: F Lab Order: Prothrombin Time Profile\E\INR; [facility] WITH [facility] 04/24/16 11:38 Test: PROTHROMBIN TIME; Value: 13.0; Range: 12.3-14.5; Units: SECONDS; Status: F Test: INR; Value: 0.97; Status: F Test Note: ; THERAPUTIC HUMAN INR VALUES INDICATIONS NORMAL RANGES PROPHYLAXIS/TREATMENT OF: VENOUS THROMBOSIS 2.0-3.0 PULMONARY EMBOLISM 2.0-3.0 PREVENTION OF SYSTEMIC EMBOLISM FROM: TISSUE HEART VALVES 2.0-3.0 ACUTE MYOCARDIAL INFARCTION 2.0-3.0 VALVULAR HEART DISEASE 2.0-3.0 ATRIAL FIBRILLATION 2.0-3.0 MECHANICAL VALVES(HIGH RISK) 2.5-3.5 RECURRENT MYOCARDIAL INFARCTION 2.5-3.5 Lab Order: Type & Screen; [facility] 04/24/16 11:38 Test: BLOOD TYPE; Value: A NEG; Status: F Test: AB SCREEN (INDIRECT LEONIDES)GEL; Value: NEGATIVE; Status: F Lab Order: Ammonia ([place] Tube on Ice, Not [place]); SPEC'M 04/24/16 11:38 Test: AMMONIA; Value: 23; Range: <32; Units: uMOL/L; Status: F Lab Order: Liver Profile; SPEC'M 04/24/16 11:38 Test: AST/SGOT; Value: 25; Range: 15-37; Units: U/L; Status: F Test: ALT/SGPT; Value: 23; Range: 12-78; Units: U/L; Status: F Test: ALKALINE PHOSPHATASE; Value: 88; Range: 45-117; Units: U/L; Status: F Test: BILIRUBIN,TOTAL; Value: 0.5; Range: 0.2-1.0; Units: MG/DL; Status: F Test: BILIRUBIN,DIRECT; Value: 0.2; Range: 0.0-0.2; Units: MG/DL; Status: F Test: TOTAL PROTEIN; Value: 8.6; Range: 6.4-8.2; Abnormal: Above high normal; Units: GM/DL; Status: F Test: ALBUMIN; Value: 4.3; Range: 3.2-5.2; Units: GM/DL; Status: F Test: ALBUMIN/GLOBULIN RATIO; Value: 1.00; Range: 1.00-1.93; Status: F Lab Order: Troponin; SPEC'M 04/24/16 11:38 Test: TROPONIN I; Value: < 0.02; Range: < 0.10; Units: NG/ML; Status: F Test Note: ; Troponin I Reference Interval for Siemens [place] LOCI: 99th Percentile= 0.00-0.045 ng/ml Risk Stratification: <= 0.10 ng/ml Decreased Risk for Adverse Clinical Events. 0.10-1.50 ng/ml Increased Risk for Adverse Clinical Events. Evaluation of additional criterion and/or repeat testing in 2-6 hours is suggested to rule out myocardial damage. >= 1.50 ng/ml Indicative of Myocardial Injury. Lab Order: Lipase; SPEC'M 04/24/16 11:38 Test: LIPASE; Value: 115; Range: 73-393; Units: U/L; Status: F Radiology Order: CT Head Without Contrast Test: CT Head Without Contrast REASON FOR EXAMINATION: jimenez, confusion, hx of aneurysm; CT HEAD WITHOUT CONTRAST:; ; HISTORY: Headache.; ; COMPARISON: 04/17/2015.; ; An area of decreased attenuation is present in the left thalamus. This; represents an old lacunar infarction. Areas of decreased attenuation are present; in the periventricular and subcortical white matter. This represents small; vessel ischemic disease. There is no intraparenchymal hemorrhage, mass or; midline shift. A shunt is present in the anterior horn of the right lateral; ventricle. The ventricles are slightly increased in size consistent with minimal; hydrocephalus. There is no extracerebral collection. The visualized sinuses are; clear. The patient is status post coiling of supraclinoid right internal; carotid and basilar artery aneurysms.; ; IMPRESSION:; ; 1. 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 Small vessel ischemic disease.; ; 3. A shunt is present in the right lateral ventricle. There has been a slight; increase in size of the ventricular system consistent with minimal hydrocephalus.; ; ; 4. The patient is status post coiling of right supraclinoid internal carotid; artery and basilar artery aneurysms.; ; ; Signed by; Fritz Mcclure MD 04/24/2016 12:19 P; Radiology Order: Chest, 1 View Test: Chest, 1 View REASON FOR EXAMINATION: jimenez; Clinical: Headache.; ; Comparison: 03/07/2016 .; ; Findings:; The mediastinum and cardiac silhouette are stable and within normal limits for; portable technique. The lung ulrich are clear without acute consolidation,; effusion, or pneumothorax. Skeletal structures are intact. 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: ; : 1945 Requested By: Gege Wills; Order Number: [id number] Reading MD: Apryl Blank; Measurements; Intervals [place]; Rate: 90 P: 46; MO: 159 QRS: -11; QRSD: 105 T: 37; QT: 377; QTc: 464; Interpretive Statements; SINUS RHYTHM WITH OCCASIONAL VENTRICULAR PREMATURE COMPLEXES; NONSPECIFIC T-WAVE ABNORMALITY; SIMILAR 02/16/15; Electronically Signed On 04-24-2016 18:09:16 EST by Apryl Blank; Radiology Order: Shunt Series Test: Shunt Series REASON FOR EXAMINATION: altered ms; Clinical: Altered mental status.; ; Comparison: 02/27/2016; ; Technique: AP and lateral views of the skull along with AP view of the abdomen.; ; Findings:; In conjunction with the chest x-ray, the ventriculoperitoneal shunt extending; from the region of the right lateral ventricle along the right side of the body; appears contiguous into the abdomen.; ; Impression:; Ventriculoperitoneal shunt appears contiguous from the calvarium into the right; mid abdomen.; ; ; Signed by; Cordell Ramos MD 04/24/2016 12:14 P; Outcome: 13:20 ER care complete, transfer ordered by Provider. br1 13:23 CT Study completed. 1 14:32 Discharge Assessment: patient administered narcotics - yes. Patient was admitted to the [facility] or transferred to another facility. The following High Risk Discharge criteria are identified: None. Transferred to [facility]. by EMS ground [facility] ambulance report to accompanying personnel Rand Hyde and Manda Slaughter [facility]. Condition: unchanged. Property :Personal belongings accompany Pt. 14:43 Patient left the ED. [facility] Signatures: Dispatcher [employer] EDCarmen Gaviria RN RN Gianna Crenshaw, Brannon Reg Jaspreet Goldman RN Arvin Steele RN RN Bhavesh Starr MD MD br1 Annette Crowley RN RN hs1 Susan Grissom Teresa, RN RN ledyb Krysta Schuler mm15 Robyn Coulter, PILLING MACHINE OPERATOR PILLING MACHINE OPERATOR jlf Chart Complete MTDD
== END 2016-04-24 14:43 | disposition short-term general hospital (02) ==
LOC: M ED 10:50
DX: G91.9 Hydrocephalus, unspecified (principal); R51 Headache; Z98.2 Presence of cerebrospinal fluid drainage device; J44.9 Chronic obstructive pulmonary disease, unspecified; I10 Essential (primary) hypertension; K21.9 Gastro-esophageal reflux disease without esophagitis; M19.90 Unspecified osteoarthritis, unspecified site; H26.9 Unspecified cataract; Z87.891 Personal history of nicotine dependence; Z79.899 Other long term (current) drug therapy; Z88.2 Allergy status to sulfonamides
CPT/HCPCS: 36415; 70450; 71010; 75809; 80048; 80076; 82140; 83690; 84484; 85025; 85610; 85730; 86850; 86900; 86901; 93005; 93041; 96374; 99285; G0463

== ENCOUNTER 2016-05-01 21:47 | Inpatient (IN) | payer MEDICARE, OTHER ==
[~2016-05-01] VITALS: Ht 154.9 cm; Wt 47.4 kg
[~2016-05-01 21:47] MED LIST changes: -SERT-141 PO; +SERT50TA PO
[2016-05-01 23:02] LABS: BASO # 0.1 K/mm3 (0.0-0.2); BASO % 0.9 % (0.0-1.0); EOS # 0.1 K/mm3 (0.0-0.50); EOS % 0.5 % (0.0-3.0); LARGE UNSTAINED CELL # 0.2 K/mm3 (0.0-0.4); LARGE UNSTAINED CELL % 1.5 % (0.0-4.0); LYMPH # 2.5 K/mm3 (1.5-4.5); LYMPH % 20.3 % (24.0-44.0); MEAN CORPUSCULAR HEMOGLOBIN 30.5 pg (27.0-33.0); MEAN CORPUSCULAR HGB CONC 31.7 g/dl (32.0-36.5); MEAN CORPUSCULAR VOLUME 96.3 fl (80.0-96.0); MONO # 0.4 K/mm3 (0.0-0.8); MONO % 3.6 % (0.0-5.0); NEUTROPHILS # 8.3 K/mm3 (1.8-7.7); NEUTROPHILS % 73.1 % (36.0-66.0); PLATELET COUNT, AUTOMATED 284 k/mm3 (150-450); RED CELL DISTRIBUTION WIDTH 14.9 % (11.5-14.5); WHITE BLOOD COUNT 11.4 K/mm3 (4.0-10.0)
[2016-05-01] MEDS ORDERED: KETOROLAC 30 MG/ML VIAL (J1885) As Ordered ONE (23:03)
[2016-05-01] MEDS ORDERED: ONDANSETRON 4MG/2ML VIAL (J2405) As Ordered ONE (23:03)
[2016-05-01 23:11] LABS: INR 1.02
[2016-05-01 23:22] LABS: ALBUMIN 3.8 GM/DL (3.2-5.2); ALBUMIN/GLOBULIN RATIO 1.03 (1.00-1.93); ALKALINE PHOSPHATASE 102 U/L (45-117); ALT/SGPT 35 U/L (12-78); AMYLASE 54 U/L (25-115); ANION GAP 11 MEQ/L (8-16); AST/SGOT 18 U/L (15-37); BILIRUBIN,DIRECT 0.2 MG/DL (0.0-0.2); BILIRUBIN,TOTAL 0.5 MG/DL (0.2-1.0); BLOOD UREA NITROGEN 17 MG/DL (7-18); CALCIUM LEVEL 9.7 MG/DL (8.8-10.2); CARBON DIOXIDE LEVEL 24 MEQ/L (21-32); CHLORIDE LEVEL 104 MEQ/L (98-107); CREATININE FOR GFR 0.63 MG/DL (0.55-1.02); GLOMERULAR FILTRATION RATE > 60.0 (>39); GLUCOSE, FASTING 107 MG/DL (83-110); SODIUM LEVEL 139 MEQ/L (136-145); TOTAL PROTEIN 7.5 GM/DL (6.4-8.2)
--- NOTE | 2016-05-02 00:10 | REPUSA ---
CLINICAL HISTORY: Abdominal pain TECHNIQUE: CT of the abdomen and pelvis was performed without intravenous contrast by obtaining amadeo guous CT axial slices from level of the heart to the proximal femoral diaphyses. Multiplanar reformat s were obtained in the coronal and sagittal projections. COMPARISON: CT abdomen pelvis 02/28/2016. FINDINGS : LOWER CHEST: The lung bases are clear. Heart is normal in size. No pleural or pericardial effusion is seen. LIVER: The liver is normal in size and contour. BILIARY SYSTEM: No intrahepatic biliary ductal dilatation. Gallbladder collapsed around a cholecystos lavell catheter. CBD within normal limits. PANCREAS: The pancreas is normal in size, contour and density. No suspicious cystic lesion or ductal dilatation. SPLEEN: Normal in size with no suspicious cystic lesion. ADRENALS: The adrenal glands are unremarkable. KIDNEYS/URETERS: The kidneys are normal in size. There are bilateral renal stones-at least 4 on the l eft measuring up to 5 mm, and several on the right with a conglomerate of right upper pole stones tracey suring up to 1.2 cm. No hydroureteronephrosis. URINARY BLADDER: The urinary bladder is unremarkable without calcified stone, wall thickening or dive rticula seen. UTERUS/ADNEXA: Absent. AORTA AND ILIAC ARTERIES: No aneurysmal dilatation of the aorta or iliac arteries is seen. LYMPH NODES: No enlarged adenopathy. GASTROINTESTINAL: Stomach, duodenum and bowel normal in caliber with no abnormal dilatation, stenosis , or wall thickening. PERITONEUM/RETROPERITONEUM: No ascites or suspicious fluid collection, extraluminal air, or suspiciou s mass. ABDOMINAL/PELVIC WALL: No hernia is identified. OSSEOUS STRUCTURES/SOFT TISSUES: No suspicious osseous lesion, acute fracture, or soft tissue abnorma lity. IMPRESSION : 1. There are bilateral renal stones-at least 4 on the left measuring up to 5 mm, and several on the r ight with a conglomerate of right upper pole stones measuring up to 1.2 cm. No hydroureteronephrosis. 2. Gallbladder collapsed around cholecystostomy catheter.
--- NOTE | 2016-05-02 01:50 | REPUSA ---
CLINICAL HISTORY: Altered mental status. TECHNIQUE: Multiple axial CT images were obtained through the brain without IV contrast material. COMMENTS: Comparison is made to the prior exam performed on 04/24/2016. Right frontal ventricular peritoneal shunt is unchanged. Mild increase in the size of the ventricular system which remains dilated. Again are noted metallic coils at the topography of the basilar and right internal carotid arteries. There is normal configuration of sella turcica. There are no intra or extra-axial collections. There is no mass effect or midline shift. There is no evidence of hematoma formation. No hydrocephalus is p resent. The ventricles are symmetrical. No abnormal calcifications are present. There is diffuse age-appropriate cerebellar and cerebral atrophy with proportionally dilated ventricl es and cortical sulci. There are bilateral periventricular and subcortical white matter hypolucencies compatible with mild c hronic microvascular disease. Otherwise, no significant focal abnormalities are seen either in the posterior fossa or supratentoria l compartment. IMPRESSION: 1. Age-appropriate cerebellar and cerebral atrophy. 2. Mild chronic microvascular disease. 3. Mild increase in hydrocephalus. Thank you for your kind referral of this patient.
--- NOTE | 2016-05-02 02:00 | REPUSA ---
CLINICAL HISTORY: Cough. TECHNIQUE: Multiple axial CT images were obtained through the thorax without IV contrast material. COMMENTS: Comparison is made to prior exam performed on 03/04/2016. No change in mild pulmonary emphysema. Significant decrease in bilateral pleural effusions. Significant decrease in bilateral pulmonary infiltrates and airspace consolidation. Mild residual airspace disease is still identified in the posterior basal segments of the lower lobes . There is no evidence of pleural or parenchymal-based mass. There is no evidence of hilar or mediastin al lymphadenopathy. The heart and great vessels are within normal limits. The visualized portions of the liver are of uniform attenuation without mass or defect. There is no i ntra or extrahepatic biliary ductal dilatation. The spleen is unremarkable. The visualized pancreas i s of normal contour and attenuation characteristics. There is no evidence of adrenal mass. The visual ized portions of the kidneys present no abnormalities. The bony structures are free of lytic or blastic lesions. IMPRESSION: Significant decrease in bilateral pleural effusions. Decrease in bilateral airspace infiltrates and the pulmonary consolidations. Mild residual airspace disease is still identified in the posterior basal segments of the lower lobes . No change in mild emphysema. Thank you for your kind referral of this patient.
[2016-05-02 02:34] LABS: VENOUS BASE EXCESS -1.8 (-2.0-2.0); VENOUS O2 SATURATION 99.4 % (60.0-80.0); VENOUS PARTIAL PRESSURE CO2 35.3 mmHg (38.0-50.0); VENOUS TOTAL CO2 23.3 MEQ/L (24.0-28.0)
[2016-05-02] MEDS ORDERED: MELA5TAB14 PO (04:08)
[2016-05-02] MEDS ORDERED: OMEP20TA PO (04:11)
[2016-05-02] MEDS ORDERED: SENN8.6T7 PO (04:11)
[2016-05-02] MEDS ORDERED: TRAM50TA2 PO (04:26)
[2016-05-02] MEDS ORDERED: ONDA1TAB15 PO (04:26)
[2016-05-02] MEDS ORDERED: ALBUTEROL SULFATE 2.5 MG/0.5 ML INH NEB SOLN INH PRN (06:00)
[2016-05-02] MEDS ORDERED: SENOKOT S TAB PO PRN (06:00)
--- NOTE | 2016-05-02 08:06 | EDDOCDS ---
Physician Documentation [facility] Name: Suad Murcia Age: 70 yrs Sex: Female : 1945 Arrival Date: 05/01/2016 Time: 21:47 Bed 13 Private MD: Scott Mcgee D Disposition: 05/02/16 03:37 Hospitalization ordered by Jaspreet Carvajal for Inpatient Admission. Preliminary diagnosis is Weakness. - Bed requested for 4 [place]. - Status is Inpatient Admission. ead - Condition is Stable. - Problem is an acute exacerbation. - Symptoms have improved. Historical: - Allergies: SULFA (SULFONAMIDES); - Home Meds: 1. Advair Diskus 250-50 mcg/dose Inhl dsdv 1 puff 2 times per day 2. Zofran (as hydrochloride) 8 mg Oral tab 1 tab daily PRN 3. multivitamin Oral tab 1 tab daily 4. amlodipine 10 mg Oral tab 1 tab once daily - Social history: Smoking status: unknown if patient ever smoked tobacco. Race: White, Ethnicity: Not or No barriers to communication noted, The patient speaks fluent Ukrainian, Preferred Language: Ukrainian. - Family history: Not pertinent. - : Unable to assess if pt is on anticoagulants. Unable to Verify Home Med List with the patient / caregiver. Note Awaiting arrival of daughter to verify medications. Patient unable to verify/recall. - Exposure Risk Screening:: None identified. Vital Signs: 05/01 22:07 Pulse 102 MON; Pulse Ox 92% ; cf2 22:14 Pulse 104 MON; Pulse Ox 92% ; cf2 22:19 Pulse 102 MON; Pulse Ox 93% ; cf2 22:20 BP 140 / 74; Pulse 99; Resp 20; Temp 98.9; Pulse Ox 92% on R/A; Weight 58.97 kg / cf2 130.01 lbs; Height 5 ft. 1 in. (154.94 cm); Pain 8/10; 22:26 Pulse 100 MON; Pulse Ox 92% ; cf2 22:30 Pulse 98 MON; Pulse Ox 93% ; cf2 22:36 Pulse 100 MON; Pulse Ox 93% ; cf2 22:42 Pulse 100 MON; Pulse Ox 93% ; cf2 22:48 Pulse 104 MON; Pulse Ox 93% ; cf2 22:53 Pulse 98 MON; Pulse Ox 93% ; cf2 23:00 Pulse 112 MON; Pulse Ox 96% ; cf2 23:05 Pulse 96 MON; Pulse Ox 94% ; cf2 23:15 Pulse 100 MON; Pulse Ox 93% ; cf2 23:20 Pulse 98 MON; Pulse Ox 94% ; cf2 23:27 Pulse 100 MON; Pulse Ox 94% ; cf2 23:33 Pulse 98 MON; Pulse Ox 94% ; cf2 23:45 Pulse 100 MON; Pulse Ox 94% ; cf2 23:50 Pulse 100 MON; Pulse Ox 93% ; cf2 23:55 Pulse 94 MON; Pulse Ox 95% ; cf2 23:59 Pulse 98 MON; Pulse Ox 95% ; cf2 05/02 00:04 Pulse 92 MON; Pulse Ox 91% ; cf2 00:10 Pulse 96 MON; Pulse Ox 91% ; cf2 00:16 Pulse 92 MON; Pulse Ox 91% ; cf2 00:16 BP 122 / 59 (auto/); cf2 00:17 BP 122 / 59; Pulse 96; Resp 20; Temp 99.5(O); Pulse Ox 91% on R/A; kb5 00:31 Pulse 88 MON; Pulse Ox 91% ; cf2 00:31 BP 114 / 55 (auto/); cf2 00:46 Pulse 90 MON; Pulse Ox 93% ; cf2 00:46 BP 117 / 59 (auto/); cf2 01:01 Pulse 84 MON; cf2 01:01 BP 115 / 55 (auto/); cf2 01:16 Pulse 82 MON; Pulse Ox 94% ; cf2 01:16 BP 114 / 55 (auto/); cf2 01:31 Pulse 80 MON; Pulse Ox 92% ; cf2 01:31 BP 116 / 56 (auto/); cf2 01:50 Pulse 80 MON; Pulse Ox 91% ; cf2 01:50 BP 121 / 57 (auto/); cf2 02:01 Pulse 78 MON; Pulse Ox 94% ; cf2 02:01 BP 122 / 59 (auto/); cf2 02:16 Pulse 82 MON; Pulse Ox 94% ; cf2 02:16 BP 118 / 58 (auto/); cf2 02:31 Pulse 82 MON; Pulse Ox 97% ; cf2 02:31 BP 118 / 59 (auto/); cf2 02:46 Pulse 76 MON; Pulse Ox 95% ; cf2 02:46 BP 150 / 95 (auto/); cf2 03:01 Pulse 78 MON; Pulse Ox 96% ; cf2 03:01 BP 143 / 64 (auto/); cf2 03:16 Pulse 80 MON; Pulse Ox 95% ; cf2 03:16 BP 140 / 65 (auto/); cf2 03:31 Pulse 76 MON; cf2 03:31 BP 148 / 67 (auto/); cf2 03:46 Pulse 74 MON; cf2 03:46 BP 119 / 57 (auto/); cf2 04:01 Pulse 76 MON; cf2 04:01 BP 132 / 60 (auto/); cf2 04:16 Pulse 72 MON; cf2 04:16 BP 118 / 56 (auto/); cf2 04:31 Pulse 78 MON; cf2 04:31 BP 142 / 65 (auto/); cf2 04:46 Pulse 74 MON; Pulse Ox 92% ; cf2 04:46 BP 116 / 56 (auto/); cf2 05:01 Pulse 76 MON; Pulse Ox 94% ; cf2 05:01 BP 131 / 60 (auto/); cf2 05:16 Pulse 78 MON; Pulse Ox 93% ; cf2 05:16 BP 140 / 65 (auto/); cf2 05:31 Pulse 86 MON; cf2 05:31 BP 142 / 66 (auto/); cf2 05:46 Pulse 78 MON; Pulse Ox 94% ; cf2 05:46 BP 151 / 66 (auto/); cf2 06:01 Pulse 76 MON; Pulse Ox 93% ; cf2 06:01 BP 144 / 66 (auto/); cf2 06:16 Pulse 74 MON; Pulse Ox 92% ; cf2 06:16 BP 130 / 67 (auto/); cf2 06:31 Pulse 74 MON; Pulse Ox 92% ; cf2 06:31 BP 134 / 60 (auto/); cf2 06:46 BP 141 / 64 (auto/); cf2 06:46 Pulse 76 MON; Pulse Ox 93% ; cf2 07:01 BP 132 / 60 (auto/); ead 07:01 Pulse 72 MON; Pulse Ox 93% ; ead 07:23 BP 132 / 62; Pulse 74 MON; Resp 18; Temp 96.8(T); Pulse Ox 93% ; ead /18 22:20 Body Mass Index 24.56 (58.97 kg, 154.94 cm) cf2 MDM: 05/01 22:20 Ondansetron 4 mg IVP once ordered. ke 22:20 ketorolac 30 mg IVP once ordered. ke 22:20 IV Saline Lock ordered. ke 22:20 Undress patient appropriately for examination ordered. ke 22:20 NS 0.9% 1000 ml IV at 250 mL/hr continuous ordered. ke 22:21 Amylase Ordered. EDMS 22:21 Basic Metabolic Profile Ordered. EDMS 22:21 CBC with Diff Ordered. EDMS 22:21 Lipase Ordered. EDMS 22:21 Liver Profile Ordered. EDMS 22:21 Prothrombin Time Profile\E\INR Ordered. EDMS 22:21 Urinalysis Ordered. EDMS 22:21 Urine Culture Ordered. EDMS 22:21 CT ABD & PELVIS: No Contrast Ordered. EDMS 22:22 NOTHING BY MOUTH+DIET ordered. EDMS 22:23 -Blood Culture (Adults Only), peripheral from different site, or from device/port/PICC ke etc. if present ordered. 22:23 -Blood Culture Ordered. EDMS 22:24 Lactic Acid ([place] tube on ice) Ordered. EDMS 22:26 BLOOD CULTURES Ordered. EDMS 22:27 -Blood Culture (Adults Only), peripheral from different site, or from device/port/PICC kb5 etc. if present complete. 22:47 Financial registration complete. gjb 23:03 REPLACED BY [facility] Payment Agreement was scanned into [employer] and attached to record. gjb 23:33 CBC with Diff Reviewed. ke 23:33 Amylase Reviewed. ke 23:33 Basic Metabolic Profile Reviewed. ke 23:33 Lipase Reviewed. ke 23:33 Liver Profile Reviewed. ke 23:33 Prothrombin Time Profile\E\INR Reviewed. ke 23:33 Lactic Acid ([place] tube on ice) Reviewed. ke 23:58 Urinalysis Reviewed. mm11 05/02 00:47 CT Chest Without Contrast Ordered. EDMS 00:47 Venous Blood Gas (large pea green tube on ice) Ordered. EDMS 00:47 Ammonia ([place] Tube on Ice, Not Pea Green) Ordered. EDMS 00:51 CT Head Without Contrast Ordered. EDMS 02:52 Venous Blood Gas (large pea green tube on ice) Reviewed. mm11 02:52 CT ABD & PELVIS: No Contrast Reviewed. mm11 02:52 CT Chest Without Contrast Reviewed. mm11 02:52 CT Head Without Contrast Reviewed. mm11 03:13 Ammonia ([place] Green Tube on Ice, Not Pea Green) Reviewed. mm11 03:28 BED REQUEST+ADM ordered. EDMS 05:52 Admission / Observation Status ordered. EDMS 05:52 NO ADDED SALT DIET ordered. EDMS 06:05 RESPIRATORY PANEL Ordered. EDMS Administered Medications: 05/01 23:15 Drug: Ondansetron 4 mg [ondansetron HCl 2 mg/mL intravenous solution (2 mL)] Route: cf2 IVP; Site: left antecubital; 23:15 Drug: ketorolac 30 mg [ketorolac 30 mg/mL (1 mL) injection solution (1 mL)] Route: IVP; cf2 Site: left antecubital; 23:15 Drug: NS 0.9% 1000 ml [sodium chloride 0.9 % intravenous solution] Route: IV; Rate: 250 cf2 mL/hr; Site: left antecubital; Signatures: Dispatcher [employer] EDAL Jeana Raines RN RN Atif Houston, SPACE SCHEDULER SPACE SCHEDULER Misael Duval, LB BRADLEY LINEBACKER CREWMEMBER kb5 Volodymyr Butt, DO mm11 Kathe Gonzalez,RN RN Vi Ma ChristinaRN RN cf2 The chart was reviewed and I authenticate all verbal orders and agree with the evaluation and treatment provided.Attachments: 23:03 REPLACED BY [facility] Payment Agreement angelita MTDD
[2016-05-02 08:10] VITALS: BP 142/68
--- NOTE | 2016-05-02 08:26 | HPE ---
DATE OF ADMISSION: 05/02/2016 This is a patient of Dr. Currie. Chief complaint is lethargy. SUMMARY OF PRESENTATION: This is a 70-year-old who has received quite a bit of healthcare in the last month. She was admitted to [facility] from 02/28/2016 to 03/07/2016. At which point, she was transferred to [facility] for further treatment for medical intensive care unit (ICU) care with evaluation from surgery and neurosurgery for care of the patient's abdominal pain with microperforation of the distal and terminal ileum and of her ventriculoperitoneal (CASE COORDINATOR) shunt. She was there for many weeks and was transferred to the [facility] for rehabilitation. She was discharged from [facility] apparently on 04/26/2016. Since that time, she has had two followup visits with Dr. Currie as well as two emergency room (ER) visits. She has been unsteady on her feet. Sometimes it appears as though she has a facial droop according to her daughter at bedside, and they did record a temperature of 100.2 at home today. She has not been eating and drinking as well as she normally does, although she has no specific complaints. The patient currently is not complaining of any pain, chest pain, shortness of breath. She knows who the president is. Although, she thinks she is in [place] at the moment. Past medical history notable for glaucoma, osteoarthritis, osteoporosis, essential hypertension, subarachnoid hemorrhage, chronic obstructive pulmonary disease (COPD), tobacco use, gastroesophageal reflux disease (GERD), transient ischemic attack (TIA), and bowel perforation. Surgical history is notable for splenectomy, brain aneurysm, hysterectomy, ICA and basilar tip aneurysms which were coiled, right frontal ventriculoperitoneal shunt. Socially, former smoker. Does not use any alcohol currently. Family history is unremarkable due to advanced age. Medications at home include: Tylenol as needed for pain - Zofran as needed for vomiting - melatonin as needed for sleep - Norvasc 10 mg by mouth nightly - Senokot-S one tablet by mouth nightly as needed for constipation - omeprazole 20 mg by mouth daily - Advair 250/50 inhaled twice a day - sertraline 50 mg by mouth nightly - tramadol 50 mg by mouth every 6 hours as needed, pain She has ALLERGIES listed to CLAVULANIC ACID, CODEINE, PENICILLIN, and SULFA. Review of systems is notable for no headache, no visual changes, no runny nose, no sore throat. No cough. No shortness of breath. No chest pain. No abdominal pain. No loose stools. Of note, review of systems is relatively limited as the patient is a poor historian. On physical exam, blood pressure is 122/59, pulse 96, respiratory rate 20, temperature 99.5, pulse oximetry 91% on room air. Weight 58.9 kg. Body mass index 24.5. This is a 70-year-old who appears her stated age. She is awake, following simple commands. Head is normocephalic. Sinuses are nontender. Pupils equally round and reactive, anicteric. Nasal septum is midline. Mucous membranes are moist. She does have a history of thrush but there is no evidence of thrush on my exam. Neck is supple. No cervical or supraclavicular adenopathy. Breathing is symmetrical, rested. I:E ratio is 1:3. Heart is distant sounding, borderline tachycardic. Radial pulses 2+. Capillary refill is less than 2 seconds. Abdomen soft, doughy, nontender. She has a cholecystotomy tube in place, which is draining forest green liquid. No significant lower extremity edema. She is moving all four extremities. She seems to have a somewhat flattened affect. There are labs available for me to review, which include a white count 11.4, which is up from 8.7 on 04/24/2016, hemoglobin 13.1, platelets 284. INR 1.02. BUN 17, creatinine 0.63. Urine and blood culture are pending. Head CT shows age appropriate atrophy, mild microvascular disease, mild increase in hydrocephalus. Chest CT shows decreased pleural effusions, mild residual airspace disease in the basilar segments of lower lobes and emphysema. Decrease in bilateral air space infiltrates and pulmonary consolidations. Abdominal imaging shows bilateral renal stones. Gallbladder collapsed around cholecystotomy catheter. My assessment is as follows: This is a 70-year-old who presents with weakness and fever. Plan will be as follows: 1. Infectious disease. Patient has many possible sources for infectious disease, at this point, I am not starting antibiotics. Apparently, she has been exposed to viral illness at the daughter's house where she is staying. Check a flu swab and perhaps respiratory panel. Will await culture results. Monitor her clinically. 2. Patient has chronic obstructive pulmonary disease. Continuing with her controller medications. Will make as-needed medications available as needed. 3. Patient has hypertension. Continue Norvasc. 4. Patient has increasing hydrocephalus. Perhaps would benefit from a neurosurgical or neurology consult. It sounds as though she has seen Dr. Kumari in the past. 5. Deep venous thrombosis (DVT) prophylaxis will be ordered. 6. Patient may have had a patient review instrument (DANIELA) done this week. Will need social work consult. I discussed this case with the patient's daughter at bedside. GINGER
[2016-05-02] MEDS: ENOXAPARIN 40 MG/0.4 ML SYRINGE (J1650) SC SCH (10:37)
[2016-05-02] MEDS: OMEPRAZOLE 20 MG CAP PO SCH (10:37)
--- NOTE | 2016-05-02 11:52 | IPNPDOC ---
Assessment/Plan Date Seen The patient was seen on 05/02/16. Problems Problems: (1) Metabolic encephalopathy Status: Acute (2) Nonfunctioning ventriculoperitoneal shunt Status: Acute Problem Specific Plan: Consult Specialist Problem Text: Neurosurgery: Dr. Kumari consulted. requested Ct abd completed to eval for fluid collection around shunt. ordered. (3) Fever of unknown origin Status: Acute Problem Specific Plan: Consult Specialist Problem Text: UCX and blood cxs pending. ? WELLNESS MANAGER shunt infection. (4) COPD (chronic obstructive pulmonary disease) Status: Chronic Problem Specific Plan: Monitor Clinically (5) Hypertension Status: Chronic Response to Treatment: Stable Problem Specific Plan: Monitor Clinically (6) Cerebral aneurysm Status: Chronic Problem Specific Plan: Monitor Clinically (7) Depression Status: Chronic Response to Treatment: Stable Problem Specific Plan: Monitor Clinically (8) GERD (gastroesophageal reflux disease) Status: Chronic Response to Treatment: Stable Problem Specific Plan: Monitor Clinically Plan / VTE VTE Prophylaxis Ordered?: Yes (Lovenox) Subjective Review of Systems CC/HPI The patient is a 70-year-old female admitted with a reason for visit of Metabolic Encephalopathy. Events since last encounter Patient is poor historian. States has been feeling weak and some mild confusion. Noted to have fever of unknown origin. Constitutional: Reports: Fever, Malaise, Weakness, Denies: Chills Pulmonary: Denies: Cough, Dyspnea Cardiovascular: Denies: Chest Pain, Lt Headedness, Orthopnea, Palpitations, Paroxysmal Noc. Dyspnea Gastrointestinal: Denies: Abdominal Pain, Diarrhea, Nausea, Vomiting Psych: Reports: Mood Normal, Denies: Depression, Memory Issues Objective Physical Examination General Exam: Positive: Alert, No Acute Distress Eye Exam: Positive: Conjunctiva & lids normal, EOMI, PERRLA, Negative: Sclera icteric ENT Exam: Positive: Atraumatic, Mucous membr. moist/pink, Pharynx Normal Neck Exam: Positive: Supple, Negative: JVD, thyromegaly Chest Exam: Positive: Clear to auscultation, Normal air movement Heart Exam: Positive: Normal S1, Normal S2, Rate Normal, Regular Rhythm, Negative: Murmurs, Rubs Abdomen Exam: Positive: Normal bowel sounds, Soft, Negative: Hepatospenomegaly, Tenderness Extremity Exam: Positive: Normal pulses, Negative: Clubbing, Cyanosis, Edema Neuro Exam: Positive: Other (vague in response. ) Vital Signs/I&O Vital Signs Date Time Temp Pulse Resp B/P Pulse Ox O2 Delivery O2 Flow Rate FiO2 05/02/16 08:10 97.6 83 18 142/68 93 Room Air Laboratory Data Labs 24H Laboratory Tests 2 05/01/16 22:47: Lactic Acid Level 0.7 05/01/16 22:48: Aspartate Amino Transf (AST/SGOT) 18, Alanine Aminotransferase (ALT/SGPT) 35, Alkaline Phosphatase 102, Total Bilirubin 0.5, Direct Bilirubin 0.2, Albumin 3.8 , Albumin/Globulin Ratio 1.03, Amylase Level 54, Anion Gap 11, White Blood Count 11.4H, Red Blood Count 4.30, Hemoglobin 13.1, Hematocrit 41.4, Mean Corpuscular Volume 96.3H, Mean Corpuscular Hemoglobin 30.5, Mean Corpuscular Hemoglobin Concent 31.7L, Red Cell Distribution Width 14.9H, Platelet Count 284 , Neutrophils (%) (Auto) 73.1H, Lymphocytes (%) (Auto) 20.3L, Monocytes (%) ( Auto) 3.6, Eosinophils (%) (Auto) 0.5, Basophils (%) (Auto) 0.9, Neutrophils # ( Auto) 8.3H, Lymphocytes # (Auto) 2.5, Monocytes # (Auto) 0.4, Eosinophils # ( Auto) 0.1, Basophils # (Auto) 0.1, Calcium Level 9.7, Glomerular Filtration Rate > 60.0, Large Unclassified Cells # 0.2, Large Unclassified Cells % 1.5, Lipase 103, Prothromb Time International Ratio 1.02, Prothrombin Time 13.5, Total Protein 7.5, Urine Amorphous Sediment , Urine Appearance HAZY, Urine Color YELLOW, Urine pH 5.0, Urine Specific [place] 1.016, Urine Protein 1+H, Urine Glucose (UA) NEGATIVE, Urine Ketones TRACEH, Urine Urobilinogen 0.2, Urine Bilirubin NEGATIVE, Urine Leukocyte Esterase NEGATIVE, Urine Bacteria ( Auto) NEGATIVE, Urine Blood 1+H, Urine Calcium Carbonate Cryst(Auto) , Urine Calcium Oxalate Cryst (Auto) , Urine Calcium Phosphate Saida (Auto) , Urine Cellular Casts , Urine Cystine Crystals , Urine Granular Casts (Auto) , Urine Hyaline Casts (Auto) 0, Urine Leucine Crystals , Urine Mucus (Auto) SMALL, Urine Nitrite NEGATIVE, Urine Oval Fat Bodies (Auto) , Urine RBC (Auto) 5H, Urine Renal Epithelial Cells , Urine Sperm (Auto) , Urine Squamous Epithelial Cells 0, Urine Transitional Epithelial Cells , Urine Trichomonas (Auto) , Urine Triple Phosphate Cryst (Auto) , Urine Tyrosine Crystals , Urine Uric Acid Crystals (Auto) , Urine WBC (Auto) 5H, Urine Waxy Casts (Auto) , Urine Yeast- Like Cells (Auto) 05/02/16 02:18: Ammonia 26, Blood Gas Bicarbonate Standard 23.0, Venous Blood Base Excess -1.8, Venous Blood pH 7.416, Venous Blood Partial Pressure CO2 35.3L, Venous Blood Partial Pressure O2 178.0H, Venous Blood Total Carbon Dioxide 23.3L, Venous Blood HCO3 22.2L, Venous Blood Oxygen Saturation 99.4H CBC/BMP Laboratory Tests 05/01/16 22:48 Red Blood Count 4.30, Mean Corpuscular Volume 96.3 H, Mean Corpuscular Hemoglobin 30.5, Mean Corpuscular Hemoglobin Concent 31.7 L, Red Cell Distribution Width 14.9 H, Neutrophils (%) (Auto) 73.1 H, Lymphocytes (%) (Auto ) 20.3 L, Monocytes (%) (Auto) 3.6, Eosinophils (%) (Auto) 0.5, Basophils (%) ( Auto) 0.9, Neutrophils # (Auto) 8.3 H, Lymphocytes # (Auto) 2.5, Monocytes # ( Auto) 0.4, Eosinophils # (Auto) 0.1, Basophils # (Auto) 0.1 Microbiology Microbiology 05/01/16 Blood Culture, Received Pending 05/01/16 Blood Culture, Received Pending 05/01/16 Urine Culture, Received Pending Alvina Fan STEWARDING SUPERVISOR May 02, 2016 11:52
[2016-05-02 12:04] LABS: BASO # 0.1 K/mm3 (0.0-0.2); BASO % 1.2 % (0.0-1.0); EOS # 0.1 K/mm3 (0.0-0.50); EOS % 0.8 % (0.0-3.0); LARGE UNSTAINED CELL # 0.3 K/mm3 (0.0-0.4); LARGE UNSTAINED CELL % 3.1 % (0.0-4.0); LYMPH # 3.3 K/mm3 (1.5-4.5); LYMPH % 32.2 % (24.0-44.0); MEAN CORPUSCULAR HEMOGLOBIN 30.4 pg (27.0-33.0); MEAN CORPUSCULAR HGB CONC 32.3 g/dl (32.0-36.5); MEAN CORPUSCULAR VOLUME 94.1 fl (80.0-96.0); MONO # 0.6 K/mm3 (0.0-0.8); MONO % 6.5 % (0.0-5.0); NEUTROPHILS # 5.3 K/mm3 (1.8-7.7); NEUTROPHILS % 56.3 % (36.0-66.0); PLATELET COUNT, AUTOMATED 284 k/mm3 (150-450); RED CELL DISTRIBUTION WIDTH 14.9 % (11.5-14.5); WHITE BLOOD COUNT 9.3 K/mm3 (4.0-10.0)
[2016-05-02] MEDS ORDERED: GASTROGRAFIN SOLUTION 30ML PO ONE (12:30)
[2016-05-02 12:48] LABS: ALBUMIN 3.7 GM/DL (3.2-5.2); ALBUMIN/GLOBULIN RATIO 1.06 (1.00-1.93); ALKALINE PHOSPHATASE 98 U/L (45-117); ALT/SGPT 39 U/L (12-78); ANION GAP 10 MEQ/L (8-16); AST/SGOT 24 U/L (15-37); BILIRUBIN,TOTAL 0.6 MG/DL (0.2-1.0); BLOOD UREA NITROGEN 21 MG/DL (7-18); CALCIUM LEVEL 9.8 MG/DL (8.8-10.2); CARBON DIOXIDE LEVEL 26 MEQ/L (21-32); CHLORIDE LEVEL 101 MEQ/L (98-107); CREATININE FOR GFR 0.63 MG/DL (0.55-1.02); GLOMERULAR FILTRATION RATE > 60.0 (>39); GLUCOSE, FASTING 104 MG/DL (83-110); POTASSIUM SERUM 4.1 MEQ/L (3.5-5.1); SODIUM LEVEL 137 MEQ/L (136-145); TOTAL PROTEIN 7.2 GM/DL (6.4-8.2)
[2016-05-02] MEDS ORDERED: GASTROGRAFIN SOLUTION 30ML (Q9963) PO ONE (13:00)
--- NOTE | 2016-05-02 13:09 | IPN ---
DATE: 05/02/2016 Suad is seen in [address] [place] [address]. I have reviewed her case, got signed out from Dr. Summers, case discussed with Alvina Fan, ZEKE. I spoke to her daughter Zaira [phone]) at length. Family is frustrated because they feel that there is no progress being made and open issues, such as her colostomy drainage tube and her perhaps malfunctioning ventriculoperitoneal (JIG BORER) shunt. She was supposed to have an appointment with her general surgeon who placed the gallbladder drain at [facility] tomorrow, but she will not be out of the hospital by then. Her neurosurgeon is at [facility] as well. Today there is a repeat CT scan of the abdomen and pelvis that has been ordered per Dr. Kumari. The patient did have one done on admission as well. I will be consulting Dr. Urbina for his input concerning the colostomy drainage tube. The patient has a DO NOT RESUSCITATE order from a Medical Orders for Life-Sustaining Treatment (MOLST) form signed in 2014 which is at [facility]. I discussed this with the daughter Zaira. She is not aware of any change in that status but she also is not the health care proxy, that is the daughter Nicole ([phone]) and she will clarify this. In the meantime, we will assume that the MOLST form is in effect and I will put a DO NOT RESUSCITATE order in.
[2016-05-02] MEDS: ADVAIR DISKUS 250/50 INH PWD INH SCH ×2 (13:27→20:10)
[2016-05-02] MEDS ORDERED: ISOVUE-370 76% 100ML VIAL (Q9967) As Ordered ONE ×2 (13:51→15:02)
[2016-05-02 14:00] VITALS: BP 138/71
--- NOTE | 2016-05-02 16:25 | CR.PDOC ---
[facility] Consultation Consultation DATE OF CONSULTATION: May 01, 2016 at 21:47 PRIMARY CARE PHYSICIAN: Scott Mcgee M.D. REFERRING PROVIDER: Deshawn Butcher M.D. ATTENDING PHYSICIAN: Cuong Urbina Jr., M.D. REASON FOR CONSULTATION/CHIEF COMPLAINT: Cholecystostomy tube assessment HISTORY OF PRESENT ILLNESS: Patient was admitted due to altered mental status, headache and lethargy. Patient had recent stay at [facility] and had a cholecystostomy tube placed. Patient was supposed to have appointment tomorrow to assess function of cholecystostomy tube. Has been draining into tube without leakage. Color has been greenish. No blood noticed. No abdominal pain during exam however patient reports abdominal pain in the morning when waking up. Also reports some abdominal pain after eating. ALLERGIES: Please see below. HOME MEDICATIONS: Please see below. PAST MEDICAL HISTORY: 1. Glaucoma 2. Subarachnoid hemorrhage 3. COPD 4. Tobacco use 5. GERD 6. Transient ischemic attacks 7. Bowel perforation PAST SURGICAL HISTORY: 1. Splenectomy 2. Brain aneurysm 3. Hysterectomy 4. ICA and basilar aneurysm 5. right frontal ventriculoperitoneal shunt FAMILY HISTORY: SOCIAL HISTORY: Marital status and/or living arrangements: Patient is here with her brother. REVIEW OF SYSTEMS: CONSTITUTIONAL: No fevers or chills. HEENT: No headaches. CARDIOVASCULAR: No chest pain or palpitations. RESPIRATORY: No shortness of breath. GENITOURINARY: No pain with urination MUSCULOSKELETAL: No weakness. GASTROINTESTINAL: Abdominal pain in the morning. SKIN:No new rashes. NEUROLOGICAL: Speech intact. PHYSICAL EXAMINATION: VITAL SIGNS: Please see below. GENERAL APPEARANCE: Alert and awake. No acute distress. HEENT: Eyes open spontaneously. RESPIRATORY: Equal bilaterally. Symmetrical chest rise. CARDIOVASCULAR: Normal s1 and s2, no clicks rubs gallops or murmurs. ABDOMEN: Soft and nondistended. Non tender on exam. Cholecystostomy site is not leaking, no erythema or signs of infection. The bag contains greenish brownish fluid. No blood. EXTREMITIES: No lower extremity edema. Radial pulse 2/4 bilaterally. LABORATORY DATA: Please see below. ASSESSMENT/PLAN: 1. Cholecystostomy tube for acute cholecystitis. Patient was in [facility] this past month and had tube placed. Patient was supposed to have appointment tomorrow to have it tube assessed. On admission patient's liver function tests and WBC count are within normal limits, indicating there is no acute cholecystitis and it has since resolved. Plan is to clap off the cholecystostomy tube and to perform a Cholangiogram to asses the function of the tubing. Based on how the test and resolution of infection, may decide to remove the tube. Vital Signs/I&O Vital Signs Date Time Temp Pulse Resp B/P Pulse Ox O2 Delivery O2 Flow Rate FiO2 05/02/16 14:00 97.3 82 18 138/71 95 Room Air Laboratory Data Labs 24H Laboratory Tests 2 05/01/16 22:47: Lactic Acid Level 0.7 05/01/16 22:48: Aspartate Amino Transf (AST/SGOT) 18, Alanine Aminotransferase (ALT/SGPT) 35, Alkaline Phosphatase 102, Total Bilirubin 0.5, Direct Bilirubin 0.2, Albumin 3.8 , Albumin/Globulin Ratio 1.03, Amylase Level 54, Anion Gap 11, White Blood Count 11.4H, Red Blood Count 4.30, Hemoglobin 13.1, Hematocrit 41.4, Mean Corpuscular Volume 96.3H, Mean Corpuscular Hemoglobin 30.5, Mean Corpuscular Hemoglobin Concent 31.7L, Red Cell Distribution Width 14.9H, Platelet Count 284 , Neutrophils (%) (Auto) 73.1H, Lymphocytes (%) (Auto) 20.3L, Monocytes (%) ( Auto) 3.6, Eosinophils (%) (Auto) 0.5, Basophils (%) (Auto) 0.9, Neutrophils # ( Auto) 8.3H, Lymphocytes # (Auto) 2.5, Monocytes # (Auto) 0.4, Eosinophils # ( Auto) 0.1, Basophils # (Auto) 0.1, Calcium Level 9.7, Glomerular Filtration Rate > 60.0, Large Unclassified Cells # 0.2, Large Unclassified Cells % 1.5, Lipase 103, Prothromb Time International Ratio 1.02, Prothrombin Time 13.5, Total Protein 7.5, Urine Amorphous Sediment , Urine Appearance HAZY, Urine Color YELLOW, Urine pH 5.0, Urine Specific Guthrie 1.016, Urine Protein 1+H, Urine Glucose (UA) NEGATIVE, Urine Ketones TRACEH, Urine Urobilinogen 0.2, Urine Bilirubin NEGATIVE, Urine Leukocyte Esterase NEGATIVE, Urine Bacteria ( Auto) NEGATIVE, Urine Blood 1+H, Urine Calcium Carbonate Cryst(Auto) , Urine Calcium Oxalate Cryst (Auto) , Urine Calcium Phosphate Saida (Auto) , Urine Cellular Casts , Urine Cystine Crystals , Urine Granular Casts (Auto) , Urine Hyaline Casts (Auto) 0, Urine Leucine Crystals , Urine Mucus (Auto) SMALL, Urine Nitrite NEGATIVE, Urine Oval Fat Bodies (Auto) , Urine RBC (Auto) 5H, Urine Renal Epithelial Cells , Urine Sperm (Auto) , Urine Squamous Epithelial Cells 0, Urine Transitional Epithelial Cells , Urine Trichomonas (Auto) , Urine Triple Phosphate Cryst (Auto) , Urine Tyrosine Crystals , Urine Uric Acid Crystals (Auto) , Urine WBC (Auto) 5H, Urine Waxy Casts (Auto) , Urine Yeast- Like Cells (Auto) 05/02/16 02:18: Ammonia 26, Blood Gas Bicarbonate Standard 23.0, Venous Blood Base Excess -1.8, Venous Blood pH 7.416, Venous Blood Partial Pressure CO2 35.3L, Venous Blood Partial Pressure O2 178.0H, Venous Blood Total Carbon Dioxide 23.3L, Venous Blood HCO3 22.2L, Venous Blood Oxygen Saturation 99.4H 05/02/16 11:49: Aspartate Amino Transf (AST/SGOT) 24, Alanine Aminotransferase (ALT/SGPT) 39, Alkaline Phosphatase 98, Total Bilirubin 0.6, Albumin 3.7, Albumin/Globulin Ratio 1.06, Anion Gap 10, White Blood Count 9.3, Red Blood Count 4.34, Hemoglobin 13.2, Hematocrit 40.9, Mean Corpuscular Volume 94.1, Mean Corpuscular Hemoglobin 30.4, Mean Corpuscular Hemoglobin Concent 32.3, Red Cell Distribution Width 14.9H, Platelet Count 284, Neutrophils (%) (Auto) 56.3, Lymphocytes (%) (Auto) 32.2, Monocytes (%) (Auto) 6.5H, Eosinophils (%) (Auto) 0.8, Basophils (%) (Auto) 1.2H, Neutrophils # (Auto) 5.3, Lymphocytes # (Auto) 3.3, Monocytes # (Auto) 0.6, Eosinophils # (Auto) 0.1, Basophils # (Auto) 0.1, Calcium Level 9.8, Glomerular Filtration Rate > 60.0, Large Unclassified Cells # 0.3, Large Unclassified Cells % 3.1, Total Protein 7.2, Blood Urea Nitrogen 21H, Creatinine 0.63, Sodium Level 137, Potassium Level 4.1, Chloride Level 101 , Carbon Dioxide Level 26 CBC/BMP Laboratory Tests 05/01/16 22:48 Red Blood Count 4.30, Mean Corpuscular Volume 96.3 H, Mean Corpuscular Hemoglobin 30.5, Mean Corpuscular Hemoglobin Concent 31.7 L, Red Cell Distribution Width 14.9 H, Neutrophils (%) (Auto) 73.1 H, Lymphocytes (%) (Auto ) 20.3 L, Monocytes (%) (Auto) 3.6, Eosinophils (%) (Auto) 0.5, Basophils (%) ( Auto) 0.9, Neutrophils # (Auto) 8.3 H, Lymphocytes # (Auto) 2.5, Monocytes # ( Auto) 0.4, Eosinophils # (Auto) 0.1, Basophils # (Auto) 0.1 05/02/16 11:49 Red Blood Count 4.34, Mean Corpuscular Volume 94.1, Mean Corpuscular Hemoglobin 30.4, Mean Corpuscular Hemoglobin Concent 32.3, Red Cell Distribution Width 14.9 H, Neutrophils (%) (Auto) 56.3, Lymphocytes (%) (Auto) 32.2, Monocytes (%) (Auto) 6.5 H, Eosinophils (%) (Auto) 0.8, Basophils (%) (Auto) 1.2 H, Neutrophils # (Auto) 5.3, Lymphocytes # (Auto) 3.3, Monocytes # (Auto) 0.6, Eosinophils # (Auto) 0.1, Basophils # (Auto) 0.1, Calcium Level 9.8, Aspartate Amino Transf (AST/SGOT) 24, Alanine Aminotransferase (ALT/SGPT) 39, Alkaline Phosphatase 98, Total Bilirubin 0.6, Total Protein 7.2, Albumin 3.7 Microbiology Microbiology 05/01/16 Blood Culture, Received Pending 05/01/16 Blood Culture, Received Pending 05/02/16 Respiratory Virus Panel (PCR) ([facility]), Received Pending 05/01/16 Urine Culture, Received Pending Allergies Coded Allergies: Codeine (Unverified Allergy, Intermediate, hives, 02/28/16) Sulfa Drugs (Verified Allergy, Intermediate, SWELLING, 02/28/16) Clavulanic Acid (Unverified Adverse Reaction, Mild, GI ISSUES w/ AUGMENTIN , 02/28/16) PATIENT DENIED ANY SOB OR HIVES Penicillins (Unverified Adverse Reaction, Mild, GI ISSUES w/ AUGMENTIN, ) PATIENT DENIED SOB OR HX OF HIVES PER DR Amparo MONTENEGRO 02/28/16 Home Medications Scheduled Amlodipine Besylate (Amlodipine Besylate) 10 Mg Tab 10 MG PO QHS (Reported) Omeprazole (Omeprazole) 20 Mg Tab 20 MG PO DAILY (Reported) Salmeterol/Fluticasone (Advair Diskus 250-50 Mcg/Dose) 14 Puff/Inhaler Aerp 1 PUFF INH BID (Reported) Sertraline Hcl (Sertraline HCl) 50 Mg Tab 50 MG PO QHS (Reported) Scheduled PRN Acetaminophen (Acetaminophen) 325 Mg Tab 650 MG PO Q4H PRN PRN PAIN OR FEVER ( Reported) Docusate Sod/Senna (Senna S 8.6-50 mg) 1 Tab Tab 1 TAB PO QHS PRN PRN CONSTIPATION (Reported) Melatonin (Melatonin) 5 Mg Tab 5 MG PO QHS PRN PRN SLEEP (Reported) Ondansetron HCl (Ondansetron HCl) 4 Mg Tab 4 MG PO Q6H PRN PRN NAUSEA OR VOMITING (Reported) Tramadol HCl (Tramadol HCl) 50 Mg Tab 50 MG PO Q6H PRN PRN PAIN (Reported) GME ATTESTATION GME ATTESTATION My preceptor for this patient encounter was Dr. Urbina and he was physically present in the building during the encounter and was fully available. As needed , all aspects of the patient interview, examination, medical decision making process, and medical care plan development were reviewed and approved by the preceptor. Preceptor is aware and concurs with the plan as stated in the body of this note and will attest to such by his/her cosignature. HAFSA WINSTON DO May 02, 2016 16:25
--- NOTE | 2016-05-02 17:24 | REP ---
CHOLANGIOGRAM: The procedure was performed under the personal supervision of Dr. Valenzuela. The images were reviewed with Dr. Valenzuela. A fluoroscopic spot film demonstrates CT contrast in the colon as well as in the renal collecting system. 40 mL of Isovue-370 was injected into a existing cholecystostomy tube. The intrahepatic ducts are not opacified. In the distal common bile duct there is eccentric narrowing measuring 1.3 cm. The proximal common bile duct and hepatic duct are normal in caliber. There is some contrast seen emptying into the duodenum. There is no evidence of stone. IMPRESSION: In the distal common bile duct there is eccentric narrowing measuring 1.3 cm. The proximal portion of the common bile duct and hepatic duct are normal in caliber. There is no stone visualized. There is contrast seen emptying into the duodenum. 3 minutes and 40 seconds of fluoroscopic time was utilized for this procedure. Reviewed by ZAKI Solitario 05/03/2016 04:51 PEdited and Signed by Jayden Valenzuela MD 05/03/2016 05:02 P
--- NOTE | 2016-05-02 18:57 | REP ---
SHUNT SERIES: 05/02/1917. Comparison: 04/24/2016 Clinical history. Evaluate shunt patency. There is a posterior right frontal chencho hole with probe extending to near midline in the region of the frontal horn of the right lateral ventricle. Coils in the supraclinoid, carotid and basilar artery distribution as previously seen are unchanged. The course of the shunt over the calvarium down the right neck anterior chest and into the right upper quadrant is seen. There is also overlying drainage tube in the region of the gallbladder fossa known from CT. Surgical clips in the left upper quadrant again seen. Oral contrast and partially filled bladder highlight the abdomen. Scattered contrast seen segmentally in ureters. No other findings. No significant interval change. Signed by Anthony Eason MD 05/02/2016 08:18 P
[2016-05-02 20:25] VITALS: BP 133/62
[2016-05-02] MEDS: amLODIPine 10 MG TAB PO SCH (20:52)
[2016-05-02] MEDS: SERTRALINE HCL 50 MG TAB PO SCH (20:52)
[2016-05-03 05:35] VITALS: BP 125/65
[2016-05-03 07:21] LABS: MEAN CORPUSCULAR HEMOGLOBIN 30.8 pg (27.0-33.0); MEAN CORPUSCULAR VOLUME 93.3 fl (80.0-96.0); RED CELL DISTRIBUTION WIDTH 14.7 % (11.5-14.5); WHITE BLOOD COUNT 10.5 K/mm3 (4.0-10.0)
[2016-05-03] MEDS: ADVAIR DISKUS 250/50 INH PWD INH SCH ×2 (07:35→19:56)
[2016-05-03 07:54] LABS: ANION GAP 10 MEQ/L (8-16); BLOOD UREA NITROGEN 14 MG/DL (7-18); CALCIUM LEVEL 9.3 MG/DL (8.8-10.2); CARBON DIOXIDE LEVEL 24 MEQ/L (21-32); CHLORIDE LEVEL 100 MEQ/L (98-107); CREATININE FOR GFR 0.46 MG/DL (0.55-1.02); GLOMERULAR FILTRATION RATE > 60.0 (>39); GLUCOSE, FASTING 89 MG/DL (83-110); POTASSIUM SERUM 3.8 MEQ/L (3.5-5.1); SODIUM LEVEL 134 MEQ/L (136-145)
--- NOTE | 2016-05-03 08:43 | IPNPDOC ---
Assessment/Plan Date Seen The patient was seen on 05/03/16. Problems Problems: (1) Metabolic encephalopathy Status: Acute Problem Specific Plan: Consult Specialist Problem Text: 05/03/2016: Neurosurgery on board. WIN[employer] RUNNER shunt interrogation in IR today. (2) Nonfunctioning ventriculoperitoneal shunt Status: Acute Problem Specific Plan: Consult Specialist Problem Text: Neurosurgery: Dr. Kumari consulted. requested Ct abd completed to eval for fluid collection around shunt. ordered. 05/03/2016: Neurosurgery on board. WIN[employer] RUNNER shunt interrogation in IR today. (3) Fever of unknown origin Status: Resolved Problem Specific Plan: Consult Specialist Problem Text: UCX and blood cxs pending. ? WIN[employer] RUNNER shunt infection. (4) COPD (chronic obstructive pulmonary disease) Status: Chronic Problem Specific Plan: Monitor Clinically (5) Hypertension Status: Chronic Response to Treatment: Stable Problem Specific Plan: Monitor Clinically (6) Cerebral aneurysm Status: Chronic Problem Specific Plan: Monitor Clinically (7) Depression Status: Chronic Response to Treatment: Stable Problem Specific Plan: Monitor Clinically (8) GERD (gastroesophageal reflux disease) Status: Chronic Response to Treatment: Stable Problem Specific Plan: Monitor Clinically Plan / VTE VTE Prophylaxis Ordered?: Yes (Lovenox) Plan Plan Text Attending note: I saw and evaluated the patient, and agree with the plan of care as discussed and documented. CSF Revealed no signs of infection. Patient looks clinically well today. Cresencio Summers MD Subjective Review of Systems CC/HPI The patient is a 70-year-old female admitted with a reason for visit of Metabolic Encephalopathy. Events since last encounter S/p evaluation by neurosurgery and general surgery yesterday. Patient declined shunt interrogation with neurosurgery yesterday. planning on IR eval with Dr. Centeno today. Dr. Urbina following for potential removal of gallbladder drain. Patient unable to recall events from yesterday. Constitutional: Denies: Chills, Fever ENT: Denies: Dysphagia, Ear Pain, Head Aches Pulmonary: Denies: Cough, Dyspnea Cardiovascular: Denies: Chest Pain, Lt Headedness, Orthopnea, Palpitations, Paroxysmal Noc. Dyspnea Genitourinary: Denies: Dysuria, Frequency, Incontinence, Retention Psych: Reports: Mood Normal, Denies: Depression, Memory Issues Objective Physical Examination General Exam: Positive: Alert, No Acute Distress Eye Exam: Positive: Conjunctiva & lids normal, EOMI, PERRLA, Negative: Sclera icteric ENT Exam: Positive: Atraumatic, Mucous membr. moist/pink, Pharynx Normal Neck Exam: Positive: Supple, Negative: JVD, thyromegaly Chest Exam: Positive: Clear to auscultation, Normal air movement Heart Exam: Positive: Normal S1, Normal S2, Rate Normal, Regular Rhythm, Negative: Murmurs, Rubs Abdomen Exam: Positive: Normal bowel sounds, Soft, Negative: Hepatospenomegaly, Tenderness Extremity Exam: Positive: Normal pulses, Negative: Clubbing, Cyanosis, Edema Skin Exam: Positive: Nl turgor and temperature, Negative: Breakdown Neuro Exam: Positive: Other (vague in response. ) Psych Exam: Positive: Other (alert to self, date. I'm in hospital. vague in response) Vital Signs/I&O Vital Signs Date Time Temp Pulse Resp B/P Pulse Ox O2 Delivery O2 Flow Rate FiO2 05/03/16 05:35 97.3 85 16 125/65 93 Room Air I&O- Last 24 Hours up to 6 AM 05/03/16 06:00 Intake Total 760 ml Output Total 500 ml Balance 260 ml Laboratory Data Labs 24H Laboratory Tests 2 05/02/16 11:49: Blood Urea Nitrogen 21H, Creatinine 0.63, Sodium Level 137, Potassium Level 4.1 , Chloride Level 101, Carbon Dioxide Level 26, Calcium Level 9.8, Aspartate Amino Transf (AST/SGOT) 24, Alanine Aminotransferase (ALT/SGPT) 39, Alkaline Phosphatase 98, Total Bilirubin 0.6, Total Protein 7.2, Albumin 3.7, Albumin/ Globulin Ratio 1.06, Anion Gap 10, White Blood Count 9.3, Red Blood Count 4.34, Hemoglobin 13.2, Hematocrit 40.9, Mean Corpuscular Volume 94.1, Mean Corpuscular Hemoglobin 30.4, Mean Corpuscular Hemoglobin Concent 32.3, Red Cell Distribution Width 14.9H, Platelet Count 284, Neutrophils (%) (Auto) 56.3, Lymphocytes (%) (Auto) 32.2, Monocytes (%) (Auto) 6.5H, Eosinophils (%) (Auto) 0.8, Basophils (%) (Auto) 1.2H, Neutrophils # (Auto) 5.3, Lymphocytes # (Auto) 3.3, Monocytes # (Auto) 0.6, Eosinophils # (Auto) 0.1, Basophils # (Auto) 0.1, Glomerular Filtration Rate > 60.0, Large Unclassified Cells # 0.3, Large Unclassified Cells % 3.1 05/03/16 07:10: Blood Urea Nitrogen 14, Creatinine 0.46L, Sodium Level 134L, Potassium Level 3.8 , Chloride Level 100, Carbon Dioxide Level 24, Calcium Level 9.3, Anion Gap 10, Glomerular Filtration Rate > 60.0 CBC/BMP Laboratory Tests 05/02/16 11:49 Calcium Level 9.8, Aspartate Amino Transf (AST/SGOT) 24, Alanine Aminotransferase (ALT/SGPT) 39, Alkaline Phosphatase 98, Total Bilirubin 0.6, Total Protein 7.2, Albumin 3.7, Red Blood Count 4.34, Mean Corpuscular Volume 94.1, Mean Corpuscular Hemoglobin 30.4, Mean Corpuscular Hemoglobin Concent 32.3 , Red Cell Distribution Width 14.9 H, Neutrophils (%) (Auto) 56.3, Lymphocytes ( %) (Auto) 32.2, Monocytes (%) (Auto) 6.5 H, Eosinophils (%) (Auto) 0.8, Basophils (%) (Auto) 1.2 H, Neutrophils # (Auto) 5.3, Lymphocytes # (Auto) 3.3, Monocytes # (Auto) 0.6, Eosinophils # (Auto) 0.1, Basophils # (Auto) 0.1 05/03/16 07:10 Calcium Level 9.3, Red Blood Count 4.14, Mean Corpuscular Volume 93.3, Mean Corpuscular Hemoglobin 30.8, Mean Corpuscular Hemoglobin Concent 33.0, Red Cell Distribution Width 14.7 H Microbiology Microbiology 05/01/16 Blood Culture - Preliminary, Resulted No growth after 24 hours . All specim... 05/01/16 Blood Culture - Preliminary, Resulted No growth after 24 hours . All specim... 05/02/16 Respiratory Virus Panel (PCR) ([facility]) - Final, Complete 05/01/16 Urine Culture - Final, Complete Alvina Fan May 03, 2016 08:43 CRESENCIO SUMMERS MD May 07, 2016 19:50
--- NOTE | 2016-05-03 08:52 | REP ---
CT ABDOMEN AND PELVIS WITH CONTRAST: 05/02/2016. Clinical history: Evaluate for fluid collection around [employer] shunt. Comparison: Noncontrast CT 05/01/2016, contrast CT 03/06/2016. Technique: Oral Gastrografin 10 ml in 290 ml of flavored water given per our bowel contrast protocol and a bolus of 100 ml Isovue 370 given with scanning through the abdomen and pelvis. Coronal and sagittal reconstructions are provided. Findings: CT abdomen: Lung bases show minimal linear atelectatic change without effusion, infiltrate or mass. Heart is not enlarged. There is no pericardial thickening or effusion. No definite hiatal hernia. Liver is not enlarged, its vertical diameter less than 16 cm right hepatic lobe. No focal hepatic mass or intrahepatic biliary dilatation. There are a couple of tiny low density nodules suggesting small cysts or hemangioma right lobe. The lateral segment left lobe is elongated and has a tiny low density area also within it peripherally, likely a small subcentimeter cyst as well and unchanged from previous studies for all of these. There are clips in the left upper quadrant and multiple splenules adjacent to them unchanged from the multiple prior studies. There is a [employer] shunt tube coursing through the right upper quadrant abdominal wall into the right upper quadrant extending to the inferior margin of the liver and coursing back up along the liver. Cholecystostomy tube is seen in the right upper quadrant by an anterior wall approach. Gallbladder appears collapsed. I do not see abnormal fluid collection adjacent. Lung window review of all CT slice levels in the abdomen and pelvis shows no evidence of perforation or free air. Some of distal small bowel loops and cecum shows some wall thickening that may reflect some inflammatory bowel disease. I do not see infiltration of the fat adjacent to them as on the February study. Appearance not much changed from yesterday's study except that there is oral contrast in the lumen differentiating the wall from lumen. Findings are mild. Contrast is seen throughout the small bowel loops without abnormal dilatation. The largest diameter of small bowel loop left upper quadrant is 2.3 cm, which is normal. Pancreas is unremarkable without a mass. Small pancreatic duct is seen. The common duct in the pancreatic head is not dilated. There is diffuse atherosclerotic calcification of the aorta without aneurysm and no periaortic adenopathy. Stable nodule left adrenal gland, unchanged. Kidneys show anterior peripheral cyst in the interpolar region. Renal stones in the upper pole on the right. There is no ventral hernia. CT pelvis: The bladder has a small amount of layering contrast or debris with urine contrast mixed within it. No stone or mass. No abnormal wall thickening. The vaginal cuff intact. No adnexal mass lesion. No colitis in the distal left colon, sigmoid or rectum. No ascites. There is no inguinal hernia, pathologic inguinal adenopathy or ventral hernia. There is a small amount of omental fat in the left inguinal canal without bowel herniation. Impression: 1. Cholecystostomy tube in the right upper quadrant without distension of the gallbladder or adjacent free fluid. 2. [employer] shunt tubing courses into the right upper quadrant and extending into the inferior margin of the right lobe of the liver and then back upward towards the gallbladder fossa. No adjacent fluid collection. 3. Some mild wall thickening of the cecum and terminal ileum, which may reflect some ileitis or inflammatory bowel disease, but no infiltration of fat adjacent to it as in the February CT. 4. Diffuse atherosclerotic calcifications aorta and iliac vessels. Some renal cysts, calcified renal stones and splenules with surgical clips adjacent in the left upper quadrant, all stable. Signed by Anthony Eason MD 05/02/2016 08:18 P
--- NOTE | 2016-05-03 08:58 | CR ---
DATE OF CONSULTATION: 05/02/2016 Asked to consult by Alvina Fan NP for evaluation of possible ventriculoperitoneal (DUAL RATE DEALER) shunt infection. HISTORY OF PRESENT ILLNESS: Mrs. Murcia is a pleasant, 70-year-old female with a complicated medical history whose illness dates back to 02/27/2016 when she was admitted to [facility]. The patient had an extensive workup including blood cultures that were negative, persistent leukocytosis ranging between 18 and 22,000, pleural effusion that felt to be possibly infected and therefore had ultrasound guided thoracentesis of 116 mL marko fluid was drawn, which cultured negative. The patient progressively got worse with worsening abdominal pain. Had CT of the abdomen and pelvis, which showed ileitis and possibly distended nonfunctioning gallbladder that needed surgery and a cholecystotomy tube. Due to the fact that the patient has a history of a DUAL RATE DEALER shunt and that cholecystotomy would be so close to the DUAL RATE DEALER shunt, it was decided that she would be better served at [facility]. The patient was transferred to [facility] with acceptance from Dr. Valle from neurosurgery and was hospitalized from 03/07/2016 until 04/05/2016. She had broad-spectrum antibiotics with ampicillin, cefepime, vancomycin, and Flagyl for about 2-3 weeks. Her HIDA scan showed distended nonfunctioning gallbladder. She had a percutaneous cholecystotomy 03/11/2016. Blood cultures remained negative as well over there. The patient was then transferred [facility] 04[facility]2016 where she remained there for rehabilitation until 04/22/2016. At that point, the patient was discharged home. She still had episodes of intermittent confusion but no fever or chills. On 04/24/2016, she came to our emergency room. She had a low grade temperature of 99.1. She was transferred to [facility] for evaluation of her DUAL RATE DEALER shunt and cholecystotomy. At that point, they diagnosed her with a urinary tract infection even though her urine culture was negative. She was treated with intravenous (IV) ceftriaxone for 3 days and then sent home on Keflex 500 mg twice a day for three more days that would be discontinued on 04/29/2016. The patient was seen in followup by Dr. Currie on 04/29/2016, in her offidce. Dr. Currie' s noted stated that she had some episodes of confusion but she was not having any fevers. She was brought back by her family for lethargy, low grade fever of 100.2 with facial droop. Her daughter states she could not take care of her anymore. She had not been eating or drinking. She denied any complaints of chest pain or shortness of breath. On questioning her today, she had difficulty trying to remember names of presidents. She could remember it was May 02, but could not give me the year. Her past medical history is significant for glaucoma, osteoarthritis, osteoporosis, essential hypertension, subarachnoid hemorrhage from a ruptured cerebral aneurysm in October of 2014 that ended up complicating with a hydrocephalus and DUAL RATE DEALER shunt placement in December of 2014. Chronic obstructive pulmonary disease (COPD), tobacco abuse, gastroesophageal reflux disease, transient ischemic attack (TIA), bowel perforation. PAST SURGICAL HISTORY: Splenectomy in 1999, which according to patient was spontaneous. She does not remember any trauma. States up-to-date on vaccines. Ruptured cerebral aneurysm repair. Hysterectomy. Coiled aneurysms right frontal ventriculoperitoneal shunt in December of 2014. SOCIAL HISTORY: She quit smoking. She does not drink. She lives alone with the assistance of her daughter. Family history is unremarkable. ALLERGIES: PENICILLIN, CLAVULANIC ACID, SULFA DRUGS and CODEINE. MEDICATIONS: - amlodipine 10 mg by mouth nightly - Zoloft 50 mg by mouth nightly - omeprazole 20 mg by mouth daily - Advair one puff inhaled twice a day - Lovenox 40 mg subcutaneous daily - Tylenol 650 mg by mouth every 4 as needed - Zofran 4 mg intravenously every 6 as needed - Senokot one tablet by mouth nightly as needed - tramadol 50 mg by mouth every 6 as needed - albuterol 2.5 every 2 as needed LABORATORY DATA: White count yesterday was 11.4, today was 9.3, hemoglobin 13.2 , hematocrit 40.9, platelets 284, 56% neutrophils, 32% lymphocytes, 6% monocytes. Sodium 137, potassium 4.1, chloride 101, bicarbonate 26, BUN 21, creatinine 0.6, glucose 104, calcium 9.8, bilirubin 0.6, AST 24, ALT 39, alkaline phosphatase 98 , total protein 7.20, albumin 3.7. ABG: pH 7.41, pCO2 35, pO2 178. Urinalysis had 5 white cells, 5 red cells. PT was 13.5, INR 1.02. Respiratory viral panel was negative. Urine culture, blood cultures two sets drawn on 05/01/2016 are pending. IMAGING STUDY: CT abdomen and pelvis done on 05/01/2016 shows bilateral renal stone, at least 4 on the left up to 5 mm and several on the right up to 1.2 cm, but no hydronephrois, collapsed gallbladder around the cholecystotomy catheter. Spleen is stated to be normal in size, although the patient states she had splenectomy, will review that detail with radiology tomorrow. Adrenals are unremarkable. Liver is normal in size, contour. Chest CT showed decrease in bilateral air space infiltrates and consolidation, mild emphysema, mild residual airspace disease. Head CT shows cerebral atrophy, mild increase in hydrocephalus. On physical exam: She is an elderly female in no acute distress, laying in bed comfortably, does not seem to be in any discomfort. Temperature is 97.3, pulse 82, respirations 18, blood pressure 138/71, oxygen saturation 95% on room air. Heart: Normal S1, S2. No murmurs appreciated. Lungs are clear. No wheezes, rales or rhonchi. Mildly diminished at bases. Abdomen is soft, nontender. There is a cholecystotomy tube in the right lower quadrant with yellowish drainage. Back: No costovertebral angle (CVA) or lumbosacral tenderness. Extremities: No clubbing or cyanosis. No rashes. There is +1 ankle edema. Neck is supple. No stiffness. No adenopathy. There is a DUAL RATE DEALER shunt on the right side, which does not seem to be tender. Neurologic exam: Alert and oriented times three, although she is confused about her dates. She knows it is May 02, but does not know the year. She knows the President [facility] but had a hard time telling us who was the competing democratic candidate. IMPRESSION: This is a 70-year-old female, who had a history of ruptured aneurysm with ventriculoperitoneal shunt in place, who presents with episodes of intermittent confusion associated with low grade fever, mild white count which has currently resolved. Patient has had a cholecystitis that required a cholecystotomy tube that was placed in February in [facility], and the placement of the cholecystotomy tube is very close to the DUAL RATE DEALER shunt. There is increased hydrocephalus on head CT, which may be the cause of her worsening confusion, especially if she remains afebrile without evidence of infection. It might just be a malfunctioning of the DUAL RATE DEALER shunt. PLAN: At this point, I would suggest keeping her off antibiotics. Her white count is normal and she is afebrile. Consulting Dr. Kumari, who was been called , to tap the DUAL RATE DEALER shunt. Dr. Kumari saw the patient in consultation this afternoon. She refused to have the shunt tapped tonight, but she will discuss that with her family. Please ask interventional radiology guided aspiration of the DUAL RATE DEALER shunt to rule out infection. If there is evidence of infection that would be from the abdominal area that she just had this cholecystotomy procedure and the shunt will need externalization. If there is no infection, then maybe there is a blockage at the shunt and Dr. Kumari will be able to decide on that or the patient could be transferred to [facility] where the DUAL RATE DEALER shunt has been previously placed, depending on their wishes. Review of the cholangiogram done this afternoon, distal common bile duct there is extensive eccentric narrowing measuring 1.3 cm. The proximal portion of the common bile duct and hepatic ducts are normal in caliber. There is no stone visualized. There is contrast seen emptying into the duodenum. Shunt patency study was done. There is a posterior right frontal bur hole with probe extending to near midline in the region of the frontal horn. Cord is seen in the carotid and basilar arteries. The course of the shunt over the calvarium down the right neck, anterior chest and into the right upper quadrant is seen. There is also overlying drainage tube in the region of the gallbladder fossa known from the CT. This was read by Dr. Eason. There was no significant interval change. We will keep the patient off antibiotic and schedule interventional radiology to try to obtain cerebrospinal fluid (CSF) from the DUAL RATE DEALER shunt to rule out nosocomial meningitis. GINGER
[2016-05-03] MEDS: ENOXAPARIN 40 MG/0.4 ML SYRINGE (J1650) SC SCH ×2 (09:00→09:22)
[2016-05-03] MEDS: OMEPRAZOLE 20 MG CAP PO SCH (09:22)
[2016-05-03 09:24] LABS: ALBUMIN 3.5 GM/DL (3.2-5.2); ALKALINE PHOSPHATASE 98 U/L (45-117); ALT/SGPT 40 U/L (12-78); AST/SGOT 28 U/L (15-37); BILIRUBIN,TOTAL 0.7 MG/DL (0.2-1.0)
[2016-05-03] MEDS: ACETAMINOPHEN TAB 650MG DOSE (2X325MG) PO PRN (11:48)
[2016-05-03 14:00] VITALS: BP 128/68
--- NOTE | 2016-05-03 17:06 | IPNPDOC ---
Date/Time Seen The patient was seen on 05/03/16 at 16:52. Progress Note Attending: Cuong Urbina Jr, MD SUBJECTIVE: Patient is a 70 year old female post cholecystostomy tube placement. Patient reports having some nausea starting last night into this morning. But nausea resolved on its own. Cholecystostomy tube is closed from the t tube. Patient denies abdominal pain, vomiting, fevers. Patient and nurse report bowel movement yesterday. OBJECTIVE: PHYSICAL EXAMINATION: VITAL SIGNS: Please see below. GENERAL: Alert and cooperative. No distress. HEENT: Eyes open spontaneously. CARDIOVASCULAR: Normal S1 and s2, no clicks, rubs, gallops or murmurs. Respiratory: Lungs equal bilaterally. ABDOMINAL: Soft, nondistended. No tenderness to palpation. Cholecystostomy tube site is nonerythematous. T tube is turned to close. EXTREMITIES: No lower extremity edema. NEUROLOGICAL: Speech intact. LABORATORY DATA: Please see below. MICROBIOLOGY: Please see below. IMAGING: Cholangiogram via cholecystostomy tube 05/02. This showed eccentric narrowing at the distal common bile duct. No stones were visualized. Contrast was seen emptying into the duodenum. ASSESSMENT AND PLAN: Patient is a 70 year old female post cholecystostomy tube placement. PROBLEMS: 1. Cholecystostomy tube DISPOSITION: Patient has a Cholecystostomy tube that was previous placed at [facility]. Patient was supposed to have appointment today to asses the tube. A cholangiogram showed concerning narrowing in the common bile duct with no stones present. The cholecystostomy tube has been clamped since 05/02/2016 afternoon and patient did not report and abdominal pain, vomiting, or discomfort in right upper abdomen. Patient did report some nausea but it subsided on its own. Patient has been afebrile with a liver function labs within normal limits. Ordered a consult with Dr. Cornejo the regulator tester to see the patient and to perform an ERCP to asses the common bile duct and to place a stent. Discussed consult with Dr. Cornejo today face to face. Goal is to eventually remove the cholecystostomy tube. Discussed plan with Dr. Urbina. VS, I&O, 24H, Fishbone VS, I&O, 24H, Fishbone Vital Signs Date Time Temp Pulse Resp B/P Pulse Ox O2 Delivery O2 Flow Rate FiO2 05/03/16 14:00 97.5 78 18 128/68 96 Room Air I&O- Last 24 Hours up to 6 AM 05/03/16 06:00 Intake Total 760 ml Output Total 500 ml Balance 260 ml Laboratory Tests 2 05/03/16 07:10: Blood Urea Nitrogen 14, Creatinine 0.46L, Sodium Level 134L, Potassium Level 3.8 , Chloride Level 100, Carbon Dioxide Level 24, Calcium Level 9.3, Aspartate Amino Transf (AST/SGOT) 28, Alanine Aminotransferase (ALT/SGPT) 40, Alkaline Phosphatase 98, Total Bilirubin 0.7, Total Protein 7.0, Albumin 3.5, Albumin/ Globulin Ratio 1.00, Anion Gap 10, C-Reactive Protein, Quantitative 0.48H, Glomerular Filtration Rate > 60.0 Laboratory Tests 05/03/16 07:10 Calcium Level 9.3, Aspartate Amino Transf (AST/SGOT) 28, Alanine Aminotransferase (ALT/SGPT) 40, Alkaline Phosphatase 98, Total Bilirubin 0.7, Total Protein 7.0, Albumin 3.5, Red Blood Count 4.14, Mean Corpuscular Volume 93.3, Mean Corpuscular Hemoglobin 30.8, Mean Corpuscular Hemoglobin Concent 33.0 , Red Cell Distribution Width 14.7 H Microbiology 05/01/16 Blood Culture - Preliminary, Resulted No growth after 24 hours . All specim... 05/01/16 Blood Culture - Preliminary, Resulted No growth after 24 hours . All specim... 05/02/16 Respiratory Virus Panel (PCR) (VICKIE) - Final, Complete 05/01/16 Urine Culture - Final, Complete GME ATTESTATION GME ATTESTATION My preceptor for this patient encounter was Dr. Urbina and he was physically present in the building during the encounter and was fully available. As needed , all aspects of the patient interview, examination, medical decision making process, and medical care plan development were reviewed and approved by the preceptor. Preceptor is aware and concurs with the plan as stated in the body of this note and will attest to such by his/her cosignature. HAFSA WINSTON DO May 03, 2016 17:06
[2016-05-03 17:34] LABS: GLUCOSE CSF 45 MG/DL (40-75)
[2016-05-03 20:55] VITALS: BP 136/64
[2016-05-03] MEDS: ONDANSETRON 4MG/2ML VIAL (J2405) IV PRN (21:52)
[2016-05-03] MEDS: SERTRALINE HCL 50 MG TAB PO SCH (21:53)
[2016-05-03] MEDS: amLODIPine 10 MG TAB PO SCH (21:53)
[2016-05-03] MEDS: traMADol 50 MG TAB PO PRN (21:54)
--- NOTE | 2016-05-03 21:58 | IPN ---
DATE: 05/03/2016 Eloina seems to be doing fairly well today. She has not had a fever. She denies any nausea, vomiting, or diarrhea. She does not have a headache currently. She has no cough or shortness of breath. She has some discomfort at the right upper quadrant where she has a drain but no major complaints. Temperature is 97.3, pulse 85, respirations 16, blood pressure 125/65, oxygen saturation 93% on room air. HEART: Normal S1, S2. LUNGS: Clear. No wheezes or rhonchi. ABDOMEN is soft, nontender. Right upper quadrant drain with bilious fluid. EXTREMITIES: No clubbing, cyanosis or edema. No calf tenderness. NECK: Supple. No stiffness and ventriculoperitoneal (PLAYER DEVELOPMENT MANAGER) shunt, right side, is nontender. LABORATORY DATA: White count is 10.5, hemoglobin 12.7, hematocrit 38.6, platelets 260. Sodium 134, potassium 3.8, chloride 100, bicarbonate 24, BUN 14, creatinine 0.46, glucose 89. Liver profile normal. CRP is 0.48. Blood cultures are negative. Urine culture is negative. Respiratory panel is negative. IMPRESSION: 1. Worsening hydrocephalus with headache and some intermittent confusion. The patient will have a cerebrospinal fluid (CSF) analysis from the PLAYER DEVELOPMENT MANAGER shunt to make sure it is not infected after the cholecystotomy tube was placed. 2. Chronic headaches, which seem to have gotten worse recently. Could be related to blockage of the shunt. 3. Acute cholecystitis, status post cholecystotomy tube in the right upper quadrant. No distension of the gallbladder. Some mild wall thickening of the cecum and terminal ilium, which may reflect some ileitis. PLAN: Continue keeping her off intravenous (IV) antibiotics. Please obtain CSF analysis to rule out shunt infection, send fluid, if CSF shows pleocytosis for acid-fast bacillus (AFB), as well as fungal, if there is CSF pleocytosis. Again, she has not been febrile, in her CRP is only 0.48, which makes brain infection associated to CSF shunt less likely.
[2016-05-04 05:50] VITALS: BP 118/60
[2016-05-04 06:09] LABS: MEAN CORPUSCULAR HEMOGLOBIN 31.1 pg (27.0-33.0); MEAN CORPUSCULAR HGB CONC 33.8 g/dl (32.0-36.5); MEAN CORPUSCULAR VOLUME 92.2 fl (80.0-96.0); RED CELL DISTRIBUTION WIDTH 13.8 % (11.5-14.5); WHITE BLOOD COUNT 7.3 K/mm3 (4.0-10.0)
[2016-05-04 06:24] LABS: ANION GAP 10 MEQ/L (8-16); BLOOD UREA NITROGEN 17 MG/DL (7-18); CALCIUM LEVEL 9.3 MG/DL (8.8-10.2); CARBON DIOXIDE LEVEL 25 MEQ/L (21-32); CHLORIDE LEVEL 101 MEQ/L (98-107); CREATININE FOR GFR 0.58 MG/DL (0.55-1.02); GLOMERULAR FILTRATION RATE > 60.0 (>39); GLUCOSE, FASTING 89 MG/DL (83-110); POTASSIUM SERUM 3.5 MEQ/L (3.5-5.1); SODIUM LEVEL 136 MEQ/L (136-145)
--- NOTE | 2016-05-04 09:06 | EDDOCDS ---
Physician Documentation [facility] Name: Suad Murcia Age: 70 yrs Sex: Female : 1945 Arrival Date: 05/01/2016 Time: 21:47 Bed 13 Private MD: Scott Mcgee D Disposition: 05/02/16 03:37 Hospitalization ordered by Jaspreet Carvajal for Inpatient Admission. Preliminary diagnosis is Weakness. - Bed requested for [address] [place]. - Status is Inpatient Admission. ead - Condition is Stable. - Problem is an acute exacerbation. - Symptoms have improved. Historical: - Allergies: SULFA (SULFONAMIDES); - Home Meds: 1. Advair Diskus 250-50 mcg/dose Inhl dsdv 1 puff 2 times per day 2. Zofran (as hydrochloride) 8 mg Oral tab 1 tab daily PRN 3. multivitamin Oral tab 1 tab daily 4. amlodipine 10 mg Oral tab 1 tab once daily - Social history: Smoking status: unknown if patient ever smoked tobacco. Race: White, Ethnicity: Not or No barriers to communication noted, The patient speaks fluent Belarusian, Preferred Language: Belarusian. - Family history: Not pertinent. - : Unable to assess if pt is on anticoagulants. Unable to Verify Home Med List with the patient / caregiver. Note Awaiting arrival of daughter to verify medications. Patient unable to verify/recall. - Exposure Risk Screening:: None identified. Vital Signs: 05/01 22:07 Pulse 102 MON; Pulse Ox 92% ; cf2 22:14 Pulse 104 MON; Pulse Ox 92% ; cf2 22:19 Pulse 102 MON; Pulse Ox 93% ; cf2 22:20 BP 140 / 74; Pulse 99; Resp 20; Temp 98.9; Pulse Ox 92% on R/A; Weight 58.97 kg / cf2 130.01 lbs; Height 5 ft. 1 in. (154.94 cm); Pain 8/10; 22:26 Pulse 100 MON; Pulse Ox 92% ; cf2 22:30 Pulse 98 MON; Pulse Ox 93% ; cf2 22:36 Pulse 100 MON; Pulse Ox 93% ; cf2 22:42 Pulse 100 MON; Pulse Ox 93% ; cf2 22:48 Pulse 104 MON; Pulse Ox 93% ; cf2 22:53 Pulse 98 MON; Pulse Ox 93% ; cf2 23:00 Pulse 112 MON; Pulse Ox 96% ; cf2 23:05 Pulse 96 MON; Pulse Ox 94% ; cf2 23:15 Pulse 100 MON; Pulse Ox 93% ; cf2 23:20 Pulse 98 MON; Pulse Ox 94% ; cf2 23:27 Pulse 100 MON; Pulse Ox 94% ; cf2 23:33 Pulse 98 MON; Pulse Ox 94% ; cf2 23:45 Pulse 100 MON; Pulse Ox 94% ; cf2 23:50 Pulse 100 MON; Pulse Ox 93% ; cf2 23:55 Pulse 94 MON; Pulse Ox 95% ; cf2 23:59 Pulse 98 MON; Pulse Ox 95% ; cf2 05/02 00:04 Pulse 92 MON; Pulse Ox 91% ; cf2 00:10 Pulse 96 MON; Pulse Ox 91% ; cf2 00:16 Pulse 92 MON; Pulse Ox 91% ; cf2 00:16 BP 122 / 59 (auto/); cf2 00:17 BP 122 / 59; Pulse 96; Resp 20; Temp 99.5(O); Pulse Ox 91% on R/A; kb5 00:31 Pulse 88 MON; Pulse Ox 91% ; cf2 00:31 BP 114 / 55 (auto/); cf2 00:46 Pulse 90 MON; Pulse Ox 93% ; cf2 00:46 BP 117 / 59 (auto/); cf2 01:01 Pulse 84 MON; cf2 01:01 BP 115 / 55 (auto/); cf2 01:16 Pulse 82 MON; Pulse Ox 94% ; cf2 01:16 BP 114 / 55 (auto/); cf2 01:31 Pulse 80 MON; Pulse Ox 92% ; cf2 01:31 BP 116 / 56 (auto/); cf2 01:50 Pulse 80 MON; Pulse Ox 91% ; cf2 01:50 BP 121 / 57 (auto/); cf2 02:01 Pulse 78 MON; Pulse Ox 94% ; cf2 02:01 BP 122 / 59 (auto/); cf2 02:16 Pulse 82 MON; Pulse Ox 94% ; cf2 02:16 BP 118 / 58 (auto/); cf2 02:31 Pulse 82 MON; Pulse Ox 97% ; cf2 02:31 BP 118 / 59 (auto/); cf2 02:46 Pulse 76 MON; Pulse Ox 95% ; cf2 02:46 BP 150 / 95 (auto/); cf2 03:01 Pulse 78 MON; Pulse Ox 96% ; cf2 03:01 BP 143 / 64 (auto/); cf2 03:16 Pulse 80 MON; Pulse Ox 95% ; cf2 03:16 BP 140 / 65 (auto/); cf2 03:31 Pulse 76 MON; cf2 03:31 BP 148 / 67 (auto/); cf2 03:46 Pulse 74 MON; cf2 03:46 BP 119 / 57 (auto/); cf2 04:01 Pulse 76 MON; cf2 04:01 BP 132 / 60 (auto/); cf2 04:16 Pulse 72 MON; cf2 04:16 BP 118 / 56 (auto/); cf2 04:31 Pulse 78 MON; cf2 04:31 BP 142 / 65 (auto/); cf2 04:46 Pulse 74 MON; Pulse Ox 92% ; cf2 04:46 BP 116 / 56 (auto/); cf2 05:01 Pulse 76 MON; Pulse Ox 94% ; cf2 05:01 BP 131 / 60 (auto/); cf2 05:16 Pulse 78 MON; Pulse Ox 93% ; cf2 05:16 BP 140 / 65 (auto/); cf2 05:31 Pulse 86 MON; cf2 05:31 BP 142 / 66 (auto/); cf2 05:46 Pulse 78 MON; Pulse Ox 94% ; cf2 05:46 BP 151 / 66 (auto/); cf2 06:01 Pulse 76 MON; Pulse Ox 93% ; cf2 06:01 BP 144 / 66 (auto/); cf2 06:16 Pulse 74 MON; Pulse Ox 92% ; cf2 06:16 BP 130 / 67 (auto/); cf2 06:31 Pulse 74 MON; Pulse Ox 92% ; cf2 06:31 BP 134 / 60 (auto/); cf2 06:46 BP 141 / 64 (auto/); cf2 06:46 Pulse 76 MON; Pulse Ox 93% ; cf2 07:01 BP 132 / 60 (auto/); ead 07:01 Pulse 72 MON; Pulse Ox 93% ; ead 07:23 BP 132 / 62; Pulse 74 MON; Resp 18; Temp 96.8(T); Pulse Ox 93% ; ead /18 22:20 Body Mass Index 24.56 (58.97 kg, 154.94 cm) cf2 MDM: 05/01 22:20 Ondansetron 4 mg IVP once ordered. ke 22:20 ketorolac 30 mg IVP once ordered. ke 22:20 IV Saline Lock ordered. ke 22:20 Undress patient appropriately for examination ordered. ke 22:20 NS 0.9% 1000 ml IV at 250 mL/hr continuous ordered. ke 22:21 Amylase Ordered. EDMS 22:21 Basic Metabolic Profile Ordered. EDMS 22:21 CBC with Diff Ordered. EDMS 22:21 Lipase Ordered. EDMS 22:21 Liver Profile Ordered. EDMS 22:21 Prothrombin Time Profile\E\INR Ordered. EDMS 22:21 Urinalysis Ordered. EDMS 22:21 Urine Culture Ordered. EDMS 22:21 CT ABD & PELVIS: No Contrast Ordered. EDMS 22:22 NOTHING BY MOUTH+DIET ordered. EDMS 22:23 -Blood Culture (Adults Only), peripheral from different site, or from device/port/PICC ke etc. if present ordered. 22:23 -Blood Culture Ordered. EDMS 22:24 Lactic Acid ([place] tube on ice) Ordered. EDMS 22:26 BLOOD CULTURES Ordered. EDMS 22:27 -Blood Culture (Adults Only), peripheral from different site, or from device/port/PICC kb5 etc. if present complete. 22:47 Financial registration complete. gjb 23:03 [facility] Payment Agreement was scanned into [employer] and attached to record. gjb 23:33 CBC with Diff Reviewed. ke 23:33 Amylase Reviewed. ke 23:33 Basic Metabolic Profile Reviewed. ke 23:33 Lipase Reviewed. ke 23:33 Liver Profile Reviewed. ke 23:33 Prothrombin Time Profile\E\INR Reviewed. ke 23:33 Lactic Acid ([place]cia tube on ice) Reviewed. ke 23:58 Urinalysis Reviewed. mm11 05/02 00:47 CT Chest Without Contrast Ordered. EDMS 00:47 Venous Blood Gas (large pea green tube on ice) Ordered. EDMS 00:47 Ammonia ([place] Tube on Ice, Not Pea Green) Ordered. EDMS 00:51 CT Head Without Contrast Ordered. EDMS 02:52 Venous Blood Gas (large pea green tube on ice) Reviewed. mm11 02:52 CT ABD & PELVIS: No Contrast Reviewed. mm11 02:52 CT Chest Without Contrast Reviewed. mm11 02:52 CT Head Without Contrast Reviewed. mm11 03:13 Ammonia (Little Green Tube on Ice, Not Pea Green) Reviewed. mm11 03:28 BED REQUEST+ADM ordered. EDMS 05:52 Admission / Observation Status ordered. EDMS 05:52 NO ADDED SALT DIET ordered. EDMS 06:05 RESPIRATORY PANEL Ordered. EDMS 09:50 T-Sheet-- Draft Copy was scanned into [employer] and attached to record. 14:40 Radiology Report was scanned into [employer] and attached to record. gb Administered Medications: 05/01 23:15 Drug: Ondansetron 4 mg [ondansetron HCl 2 mg/mL intravenous solution (2 mL)] Route: cf2 IVP; Site: left antecubital; 23:15 Drug: ketorolac 30 mg [ketorolac 30 mg/mL (1 mL) injection solution (1 mL)] Route: IVP; cf2 Site: left antecubital; 23:15 Drug: NS 0.9% 1000 ml [sodium chloride 0.9 % intravenous solution] Route: IV; Rate: 250 cf2 mL/hr; Site: left antecubital; Signatures: Dispatcher [employer] EDDC Jeana Raines, RN RN kcs Gianna Mcconnell, Reg Reg gb Atif Stewart, DOWEL MACHINE OPERATOR DOWEL MACHINE OPERATOR Misael Duval, BANQUET WAITER/WAITRESS BANQUET WAITER/WAITRESS kb5 Volodymyr Butt, DO DO mm11 Kathe Gonzalez,RN RN Vi Ma [facility] Hilda YañezRN RN cf2 The chart was reviewed and I authenticate all verbal orders and agree with the evaluation and treatment provided.Attachments: 23:03 [facility] Payment Agreement gjb 05/02 09:50 T-Sheet-- Draft Copy gb Chart Complete MTDD
--- NOTE | 2016-05-04 09:06 | EDDOCDS ---
Nurse's Notes [facility] Name: Suad Murcia Age: 70 yrs Sex: Female : 1945 Arrival Date: 05/01/2016 Time: 21:47 Bed 13 Private MD: Scott Mcgee D Diagnosis: Weakness Presentation: 05/01 22:15 Presenting complaint: Patient states: "I feel rotten, my stomach hurts". Patient was cf2 discharged from hospital on Friday after being admitted for abdominal abscess in early February. Per family patient with temp 100.2 at home. EMS states: Patient with abdominal pain and drain in place. Adult Sepsis Screening: The patient does not have new or worsening altered mentation. Patient's respiratory rate is less than 22. Systolic blood pressure is greater than 100. Patient has a qSOFA score of 0- Negative Sepsis Screen. Suicide/Homicide risk assessment- the patient denies having any suicidal and/or homicidal ideations and does not present with any other emotional, behavioral or mental health complaints. Status: Patient is not a health services coordinator or dependent. Transition of care: patient was not received from another setting of care. Care prior to arrival: See EMS report. Saline lock initiated. #18 to right wrist. 22:15 Acuity: TRINIDAD Level 2 cf2 22:15 Method Of Arrival: Ambulance cf2 Triage Assessment: 22:20 General: Appears distressed, ill, Behavior is appropriate for age, cooperative. Pain: cf2 Location: abdomen. Historical: - Allergies: SULFA (SULFONAMIDES); - Home Meds: 1. Advair Diskus 250-50 mcg/dose Inhl dsdv 1 puff 2 times per day 2. Zofran (as hydrochloride) 8 mg Oral tab 1 tab daily PRN 3. multivitamin Oral tab 1 tab daily 4. amlodipine 10 mg Oral tab 1 tab once daily - Social history: Smoking status: unknown if patient ever smoked tobacco. Race: White, Ethnicity: Not or No barriers to communication noted, The patient speaks fluent [place], Preferred Language: [place]. - Family history: Not pertinent. - : Unable to assess if pt is on anticoagulants. Unable to Verify Home Med List with the patient / caregiver. Note Awaiting arrival of daughter to verify medications. Patient unable to verify/recall. - Exposure Risk Screening:: None identified. Screenin/19 00:10 Screening information is obtained from the patient. Fall risk: At risk due to gait cf2 disturbance. Assistance ADL's: requires no assistance with activities of daily living. Abuse/DV Screen: The patient / caregiver reports he/she is: not in a situation that causes fear, pain or injury. Nutritional screening: No deficits noted. Advance Directives: Further advance directive information is declined. home support is adequate. Assessment: 06:52 Reassessment: Patient states feeling better. Adult Sepsis Screening: The patient does cf2 not have new or worsening altered mentation. Patient's respiratory rate is less than 22. Systolic blood pressure is greater than 100. Patient has a qSOFA score of 0- Negative Sepsis Screen. 06:52 General: Appears distressed, ill, Behavior is appropriate for age, cooperative. Pain: cf2 Location: abdomen. Neurological: No deficits noted. EENT: No deficits noted. Cardiovascular: No deficits noted. Respiratory: No deficits noted. GI: No deficits noted. : No deficits noted. Derm: No deficits noted. Musculoskeletal: No deficits noted. Injury Description: No known injury. 07:34 General: Appears in no apparent distress, comfortable, Behavior is appropriate for age, ead cooperative. Neurological: Level of Consciousness is awake, alert. Cardiovascular: Rhythm is sinus rhythm. Respiratory: Airway is patent Respiratory effort is even, unlabored. Derm: Skin is pink, warm & dry. 07:38 General: SBAR faxed and tubed to 4 pav. ead 07:52 General: Appears in no apparent distress, comfortable, Behavior is appropriate for age, ead cooperative. Neurological: Level of Consciousness is awake, alert. Respiratory: Airway is patent Respiratory effort is even, unlabored. Derm: Skin is pink, warm & dry. Vital Signs: 05/01 22:07 Pulse 102 MON; Pulse Ox 92% ; cf2 22:14 Pulse 104 MON; Pulse Ox 92% ; cf2 22:19 Pulse 102 MON; Pulse Ox 93% ; cf2 22:20 BP 140 / 74; Pulse 99; Resp 20; Temp 98.9; Pulse Ox 92% on R/A; Weight 58.97 kg; Height cf2 5 ft. 1 in. (154.94 cm); Pain 8/10; 22:26 Pulse 100 MON; Pulse Ox 92% ; cf2 22:30 Pulse 98 MON; Pulse Ox 93% ; cf2 22:36 Pulse 100 MON; Pulse Ox 93% ; cf2 22:42 Pulse 100 MON; Pulse Ox 93% ; cf2 22:48 Pulse 104 MON; Pulse Ox 93% ; cf2 22:53 Pulse 98 MON; Pulse Ox 93% ; cf2 23:00 Pulse 112 MON; Pulse Ox 96% ; cf2 23:05 Pulse 96 MON; Pulse Ox 94% ; cf2 23:15 Pulse 100 MON; Pulse Ox 93% ; cf2 23:20 Pulse 98 MON; Pulse Ox 94% ; cf2 23:27 Pulse 100 MON; Pulse Ox 94% ; cf2 23:33 Pulse 98 MON; Pulse Ox 94% ; cf2 23:45 Pulse 100 MON; Pulse Ox 94% ; cf2 23:50 Pulse 100 MON; Pulse Ox 93% ; cf2 23:55 Pulse 94 MON; Pulse Ox 95% ; cf2 23:59 Pulse 98 MON; Pulse Ox 95% ; cf2 05/02 00:04 Pulse 92 MON; Pulse Ox 91% ; cf2 00:10 Pulse 96 MON; Pulse Ox 91% ; cf2 00:16 Pulse 92 MON; Pulse Ox 91% ; cf2 00:16 BP 122 / 59 (auto/); cf2 00:17 BP 122 / 59; Pulse 96; Resp 20; Temp 99.5(O); Pulse Ox 91% on R/A; kb5 00:31 Pulse 88 MON; Pulse Ox 91% ; cf2 00:31 BP 114 / 55 (auto/); cf2 00:46 Pulse 90 MON; Pulse Ox 93% ; cf2 00:46 BP 117 / 59 (auto/); cf2 01:01 Pulse 84 MON; cf2 01:01 BP 115 / 55 (auto/); cf2 01:16 Pulse 82 MON; Pulse Ox 94% ; cf2 01:16 BP 114 / 55 (auto/); cf2 01:31 Pulse 80 MON; Pulse Ox 92% ; cf2 01:31 BP 116 / 56 (auto/); cf2 01:50 Pulse 80 MON; Pulse Ox 91% ; cf2 01:50 BP 121 / 57 (auto/); cf2 02:01 Pulse 78 MON; Pulse Ox 94% ; cf2 02:01 BP 122 / 59 (auto/); cf2 02:16 Pulse 82 MON; Pulse Ox 94% ; cf2 02:16 BP 118 / 58 (auto/); cf2 02:31 Pulse 82 MON; Pulse Ox 97% ; cf2 02:31 BP 118 / 59 (auto/); cf2 02:46 Pulse 76 MON; Pulse Ox 95% ; cf2 02:46 BP 150 / 95 (auto/); cf2 03:01 Pulse 78 MON; Pulse Ox 96% ; cf2 03:01 BP 143 / 64 (auto/); cf2 03:16 Pulse 80 MON; Pulse Ox 95% ; cf2 03:16 BP 140 / 65 (auto/); cf2 03:31 Pulse 76 MON; cf2 03:31 BP 148 / 67 (auto/); cf2 03:46 Pulse 74 MON; cf2 03:46 BP 119 / 57 (auto/); cf2 04:01 Pulse 76 MON; cf2 04:01 BP 132 / 60 (auto/); cf2 04:16 Pulse 72 MON; cf2 04:16 BP 118 / 56 (auto/); cf2 04:31 Pulse 78 MON; cf2 04:31 BP 142 / 65 (auto/); cf2 04:46 Pulse 74 MON; Pulse Ox 92% ; cf2 04:46 BP 116 / 56 (auto/); cf2 05:01 Pulse 76 MON; Pulse Ox 94% ; cf2 05:01 BP 131 / 60 (auto/); cf2 05:16 Pulse 78 MON; Pulse Ox 93% ; cf2 05:16 BP 140 / 65 (auto/); cf2 05:31 Pulse 86 MON; cf2 05:31 BP 142 / 66 (auto/); cf2 05:46 Pulse 78 MON; Pulse Ox 94% ; cf2 05:46 BP 151 / 66 (auto/); cf2 06:01 Pulse 76 MON; Pulse Ox 93% ; cf2 06:01 BP 144 / 66 (auto/); cf2 06:16 Pulse 74 MON; Pulse Ox 92% ; cf2 06:16 BP 130 / 67 (auto/); cf2 06:31 Pulse 74 MON; Pulse Ox 92% ; cf2 06:31 BP 134 / 60 (auto/); cf2 06:46 BP 141 / 64 (auto/); cf2 06:46 Pulse 76 MON; Pulse Ox 93% ; cf2 07:01 BP 132 / 60 (auto/); ead 07:01 Pulse 72 MON; Pulse Ox 93% ; ead 07:23 BP 132 / 62; Pulse 74 MON; Resp 18; Temp 96.8(T); Pulse Ox 93% ; ead 05/01 22:20 Body Mass Index 24.56 (58.97 kg, 154.94 cm) cf2 Vitals: 05/01 22:20 Log In Time N/A - ambulance arrival. cf2 ED Course: 22:01 Patient visited by Misael Elder PCA. kb5 22:01 Scott Mcgee is Private Physician. kb5 22:01 Patient moved to Waiting kb5 22:01 Patient moved to 13 kb5 22:03 [facility] ke 22:03 Patient visited by Atif Stewart FNP. ke 22:03 Patient visited by Atif Stewart FNP. ke 22:15 Hilda Yañez RN is Primary Nurse. cf2 22:15 Patient visited by Hilda Yañez RN. cf2 22:18 Triage Initiated cf2 22:45 Patient visited by Atif Stewart FNP. ke 23:03 [facility] Payment Agreement was scanned into [employer] and attached to record. gjb 23:15 Patient visited by Atif Stewart FNP. ke 23:31 Patient visited by Hilda Yañez,YOON. cf2 23:47 Patient visited by Hilda Yañez,YOON. cf2 23:57 Volodymyr Butt DO is Attending Physician. mm11 05/02 00:10 The patient / caregiver is instructed regarding the plan of care and ED course. Patient cf2 has correct armband on for positive identification. Placed in gown. Bed in low position. Call light in reach. Side rails up X 1. Side rails up X2. property assessment monitor on. Pulse ox on. NIBP on. Property :Personal belongings accompany Pt. Door closed. Noise minimized. Visitors limited. Lights dimmed. Moved to private room. Verbal reassurance given. Warm blanket given. Pillow given. Diet: Patient is NPO. 00:10 Inserted saline lock: 18 gauge in right hand and blood collected. The patient tolerated cf2 the procedure well. No procedures done that require assistance. 00:18 Patient visited by Misael Elder PCA. kb5 00:35 CT ABD & PELVIS: No Contrast Returned. EDMS 01:06 Patient visited by Volodymyr Butt DO. mm11 02:07 Patient visited by Hilda Yañez,YOON. cf2 02:23 CT Head Without Contrast Returned. EDMS 02:23 CT Chest Without Contrast Returned. EDMS 03:00 Patient visited by Hilda Yañez,YOON. cf2 03:27 Patient visited by Hilda Yañez RN. cf2 03:36 Jaspreet Carvajal MD is Hospitalizing Provider. mm11 05:10 Patient visited by Hilda Yañez,YOON. cf2 05:12 Patient visited by Hilda Yañez RN. cf2 06:51 Patient visited by Hilda Yañez RN. cf2 06:59 Kathe Gonzalez,YOON is Primary Nurse. ead 09:50 T-Sheet-- Draft Copy was scanned into [employer] and attached to record. gb 14:40 Radiology Report was scanned into [employer] and attached to record. gb Administered Medications: 05/01 23:15 Drug: Ondansetron 4 mg [ondansetron HCl 2 mg/mL intravenous solution (2 mL)] Route: cf2 IVP; Site: left antecubital; 23:15 Drug: ketorolac 30 mg [ketorolac 30 mg/mL (1 mL) injection solution (1 mL)] Route: IVP; cf2 Site: left antecubital; 23:15 Drug: NS 0.9% 1000 ml [sodium chloride 0.9 % intravenous solution] Route: IV; Rate: 250 cf2 mL/hr; Site: left antecubital; Order Results: Lab Order: Amylase; SPEC'M 05/01/16 22:48 Test: AMYLASE; Value: 54; Range: 25-115; Units: U/L; Status: F Lab Order: Basic Metabolic Profile; SPEC'M 05/01/16 22:48 Test: GLUCOSE, FASTING; Value: 107; Range: 83-110; Units: MG/DL; Status: F Test: BLOOD UREA NITROGEN; Value: 17; Range: 7-18; Units: MG/DL; Status: F Test: CREATININE FOR GFR; Value: 0.63; Range: 0.55-1.02; Units: MG/DL; Status: F Test: GLOMERULAR FILTRATION RATE; Value: > 60.0; Range: >39; Status: F Test: SODIUM LEVEL; Value: 139; Range: 136-145; Units: MEQ/L; Status: F Test: POTASSIUM SERUM; Value: 4.0; Range: 3.5-5.1; Units: MEQ/L; Status: F Test: CHLORIDE LEVEL; Value: 104; Range: 98-107; Units: MEQ/L; Status: F Test: CARBON DIOXIDE LEVEL; Value: 24; Range: 21-32; Units: MEQ/L; Status: F Test: ANION GAP; Value: 11; Range: 8-16; Units: MEQ/L; Status: F Test: CALCIUM LEVEL; Value: 9.7; Range: 8.8-10.2; Units: MG/DL; Status: F Test Note: ; Units are mL/min/1.73 m2 Chronic Kidney Disease Staging per NKF: Stage I & II GFR >=60 Normal to Mildly Decreased Stage III GFR 30-59 Moderately Decreased Stage IV GFR 15-29 Severely Decreased Stage V GFR <15 Very Little GFR Left ESRD GFR <15 on PSYCHOLOGIST EXPERIMENTAL Lab Order: CBC with Diff; SPEC'M 05/01/16 22:48 Test: WHITE BLOOD COUNT; Value: 11.4; Range: 4.0-10.0; Abnormal: Above high normal; Units: K/mm3; Status: F Test: RED BLOOD COUNT; Value: 4.30; Range: 4.00-5.40; Units: M/mm3; Status: F Test: HEMOGLOBIN; Value: 13.1; Range: 12.0-16.0; Units: g/dl; Status: F Test: HEMATOCRIT; Value: 41.4; Range: 36.0-47.0; Units: %; Status: F Test: MEAN CORPUSCULAR VOLUME; Value: 96.3; Range: 80.0-96.0; Abnormal: Above high normal; Units: fl; Status: F Test: MEAN CORPUSCULAR HEMOGLOBIN; Value: 30.5; Range: 27.0-33.0; Units: pg; Status: F Test: MEAN CORPUSCULAR HGB CONC; Value: 31.7; Range: 32.0-36.5; Abnormal: Below low normal; Units: g/dl; Status: F Test: RED CELL DISTRIBUTION WIDTH; Value: 14.9; Range: 11.5-14.5; Abnormal: Above high normal; Units: %; Status: F Test: PLATELET COUNT, AUTOMATED; Value: 284; Range: 150-450; Units: k/mm3; Status: F Test: NEUTROPHILS %; Value: 73.1; Range: 36.0-66.0; Abnormal: Above high normal; Units: %; Status: F Test: LYMPH %; Value: 20.3; Range: 24.0-44.0; Abnormal: Below low normal; Units: %; Status: F Test: MONO %; Value: 3.6; Range: 0.0-5.0; Units: %; Status: F Test: EOS %; Value: 0.5; Range: 0.0-3.0; Units: %; Status: F Test: BASO %; Value: 0.9; Range: 0.0-1.0; Units: %; Status: F Test: LARGE UNSTAINED CELL %; Value: 1.5; Range: 0.0-4.0; Units: %; Status: F Test: NEUTROPHILS #; Value: 8.3; Range: 1.8-7.7; Abnormal: Above high normal; Units: K/mm3; Status: F Test: LYMPH #; Value: 2.5; Range: 1.5-4.5; Units: K/mm3; Status: F Test: MONO #; Value: 0.4; Range: 0.0-0.8; Units: K/mm3; Status: F Test: EOS #; Value: 0.1; Range: 0.0-0.50; Units: K/mm3; Status: F Test: BASO #; Value: 0.1; Range: 0.0-0.2; Units: K/mm3; Status: F Test: LARGE UNSTAINED CELL #; Value: 0.2; Range: 0.0-0.4; Units: K/mm3; Status: F Lab Order: Lipase; SPEC'M 05/01/16 22:48 Test: LIPASE; Value: 103; Range: 73-393; Units: U/L; Status: F Lab Order: Liver Profile; SPEC'M 05/01/16 22:48 Test: AST/SGOT; Value: 18; Range: 15-37; Units: U/L; Status: F Test: ALT/SGPT; Value: 35; Range: 12-78; Units: U/L; Status: F Test: ALKALINE PHOSPHATASE; Value: 102; Range: 45-117; Units: U/L; Status: F Test: BILIRUBIN,TOTAL; Value: 0.5; Range: 0.2-1.0; Units: MG/DL; Status: F Test: BILIRUBIN,DIRECT; Value: 0.2; Range: 0.0-0.2; Units: MG/DL; Status: F Test: TOTAL PROTEIN; Value: 7.5; Range: 6.4-8.2; Units: GM/DL; Status: F Test: ALBUMIN; Value: 3.8; Range: 3.2-5.2; Units: GM/DL; Status: F Test: ALBUMIN/GLOBULIN RATIO; Value: 1.03; Range: 1.00-1.93; Status: F Lab Order: Prothrombin Time Profile\\E\\INR; SPEC' 05/01/16 22:48 Test: PROTHROMBIN TIME; Value: 13.5; Range: 12.3-14.5; Units: SECONDS; Status: F Test: INR; Value: 1.02; Status: F Test Note: ; THERAPUTIC HUMAN INR VALUES INDICATIONS NORMAL RANGES PROPHYLAXIS/TREATMENT OF: VENOUS THROMBOSIS 2.0-3.0 PULMONARY EMBOLISM 2.0-3.0 PREVENTION OF SYSTEMIC EMBOLISM FROM: TISSUE HEART VALVES 2.0-3.0 ACUTE MYOCARDIAL INFARCTION 2.0-3.0 VALVULAR HEART DISEASE 2.0-3.0 ATRIAL FIBRILLATION 2.0-3.0 MECHANICAL VALVES(HIGH RISK) 2.5-3.5 RECURRENT MYOCARDIAL INFARCTION 2.5-3.5 Lab Order: Urinalysis; SPEC'M 05/01/16 22:48 Test: APPEARANCE, URINE; Value: HAZY; Range: CLEAR; Status: F Test: COLOR, URINE; Value: YELLOW; Range: YELLOW; Status: F Test: PH,URINE; Value: 5.0; Range: 5.0-9.0; Units: UNITS; Status: F Test: SPECIFIC GRAVITY URINE AUTO; Value: 1.016; Range: 1.002-1.035; Status: F Test: PROTEIN, URINE AUTO; Value: 1+; Range: NEGATIVE; Abnormal: Above high normal; Units: mg/dL; Status: F Test: GLUCOSE, URINE (UA) AUTO; Value: NEGATIVE; Range: NEGATIVE; Units: mg/dL; Status: F Test: KETONE, URINE AUTO; Value: TRACE; Range: NEGATIVE; Abnormal: Above high normal; Units: mg/dL; Status: F Test: UROBILINOGEN, URINE AUTO; Value: 0.2; Range: 0.0-2.0; Units: mg/dL; Status: F Test: BILIRUBIN, URINE AUTO; Value: NEGATIVE; Range: NEGATIVE; Status: F Test: NITRITE, URINE AUTO; Value: NEGATIVE; Range: NEGATIVE; Status: F Test: LEUKOCYTE ESTERASE, URINE AUTO; Value: NEGATIVE; Range: NEGATIVE; Status: F Test: BLOOD, URINE BLOOD; Value: 1+; Range: NEGATIVE; Abnormal: Above high normal; Status: F Test: WBC, URINE AUTO; Value: 5; Range: 0-3; Abnormal: Above high normal; Units: /HPF; Status: F Test: RBC, URINE AUTO; Value: 5; Range: 0-3; Abnormal: Above high normal; Units: /HPF; Status: F Test: BACTERIA, URINE AUTO; Value: NEGATIVE; Range: NEGATIVE; Status: F Test: SQUAMOUS EPITHELIAL CELL UR AU; Value: 0; Range: 0-6; Units: /HPF; Status: F Test: MUCUS, URINE; Value: SMALL; Range: NEGATIVE; Status: F Test: HYALINE CAST, URINE AUTO; Value: 0; Range: 0-1; Units: /LPF; Status: F Lab Order: Lactic Acid ([place] tube on ice); SPEC'M 05/01/16 22:47 Test: LACTIC ACID LEVEL, LACTATE; Value: 0.7; Range: 0.4-2.0; Units: MMOL/L; Status: F Lab Order: Venous Blood Gas (large pea green tube on ice); SPEC'M 05/02/16 02:18 Test: VENOUS PH; Value: 7.416; Range: 7.330-7.430; Units: UNITS; Status: F Test: VENOUS PARTIAL PRESSURE CO2; Value: 35.3; Range: 38.0-50.0; Abnormal: Below low normal; Units: mmHg; Status: F Test: VENOUS PARTIAL PRESSURE O2; Value: 178.0; Range: 30.0-50.0; Abnormal: Above high normal; Units: mmHg; Status: F Test: VENOUS TOTAL CO2; Value: 23.3; Range: 24.0-28.0; Abnormal: Below low normal; Units: MEQ/L; Status: F Test: VENOUS HCO3; Value: 22.2; Range: 23.0-27.0; Abnormal: Below low normal; Units: MEQ/L; Status: F Test: VENOUS BASE EXCESS; Value: -1.8; Range: -2.0-2.0; Status: F Test: VENOUS STANDARD HCO3; Value: 23.0; Units: MEQ/L; Status: F Test: VENOUS O2 SATURATION; Value: 99.4; Range: 60.0-80.0; Abnormal: Above high normal; Units: %; Status: F Lab Order: Ammonia ([place] Tube on Ice, Not [place]); SPEC'M 05/02/16 02:18 Test: AMMONIA; Value: 26; Range: <32; Units: uMOL/L; Status: F Radiology Order: CT ABD & PELVIS: No Contrast Test: CT ABD & PELVIS: No Contrast REASON FOR EXAMINATION: Abdomen Pain; ; CLINICAL HISTORY: Abdominal pain; TECHNIQUE: CT of the abdomen and pelvis was performed without intravenous contrast by obtaining amadeo; guous CT axial slices from level of the heart to the proximal femoral diaphyses. Multiplanar reformat; s were obtained in the coronal and sagittal projections.; COMPARISON: CT abdomen pelvis 02/28/2016.; FINDINGS :; LOWER CHEST: The lung bases are clear. Heart is normal in size. No pleural or pericardial effusion is; seen.; LIVER: The liver is normal in size and contour.; BILIARY SYSTEM: No intrahepatic biliary ductal dilatation. Gallbladder collapsed around a cholecystos; lavell catheter. CBD within normal limits.; PANCREAS: The pancreas is normal in size, contour and density. No suspicious cystic lesion or ductal; dilatation.; SPLEEN: Normal in size with no suspicious cystic lesion.; ADRENALS: The adrenal glands are unremarkable.; KIDNEYS/URETERS: The kidneys are normal in size. There are bilateral renal stones-at least 4 on the l; eft measuring up to 5 mm, and several on the right with a conglomerate of right upper pole stones tracey; suring up to 1.2 cm. No hydroureteronephrosis.; URINARY BLADDER: The urinary bladder is unremarkable without calcified stone, wall thickening or dive; rticula seen.; UTERUS/ADNEXA: Absent.; AORTA AND ILIAC ARTERIES: No aneurysmal dilatation of the aorta or iliac arteries is seen.; LYMPH NODES: No enlarged adenopathy.; GASTROINTESTINAL: Stomach, duodenum and bowel normal in caliber with no abnormal dilatation, stenosis; , or wall thickening.; PERITONEUM/RETROPERITONEUM: No ascites or suspicious fluid collection, extraluminal air, or suspiciou; s mass.; ABDOMINAL/PELVIC WALL: No hernia is identified.; OSSEOUS STRUCTURES/SOFT TISSUES: No suspicious osseous lesion, acute fracture, or soft tissue abnorma; lity.; IMPRESSION :; 1. There are bilateral renal stones-at least 4 on the left measuring up to 5 mm, and several on the r; ight with a conglomerate of right upper pole stones measuring up to 1.2 cm. No hydroureteronephrosis.; ; 2. Gallbladder collapsed around cholecystostomy catheter.; ; Radiology Order: CT Chest Without Contrast Test: CT Chest Without Contrast REASON FOR EXAMINATION: Cough;Shortness of Breath; ; CLINICAL HISTORY: Cough.; TECHNIQUE: Multiple axial CT images were obtained through the thorax without IV contrast material.; COMMENTS:; Comparison is made to prior exam performed on 03/04/2016.; No change in mild pulmonary emphysema.; Significant decrease in bilateral pleural effusions.; Significant decrease in bilateral pulmonary infiltrates and airspace consolidation.; Mild residual airspace disease is still identified in the posterior basal segments of the lower lobes; .; There is no evidence of pleural or parenchymal-based mass. There is no evidence of hilar or mediastin; al lymphadenopathy. The heart and great vessels are within normal limits.; The visualized portions of the liver are of uniform attenuation without mass or defect. There is no i; ntra or extrahepatic biliary ductal dilatation. The spleen is unremarkable. The visualized pancreas i; s of normal contour and attenuation characteristics. There is no evidence of adrenal mass. The visual; ized portions of the kidneys present no abnormalities.; The bony structures are free of lytic or blastic lesions.; IMPRESSION:; Significant decrease in bilateral pleural effusions.; Decrease in bilateral airspace infiltrates and the pulmonary consolidations.; Mild residual airspace disease is still identified in the posterior basal segments of the lower lobes; .; No change in mild emphysema.; Thank you for your kind referral of this patient.; ; ; Radiology Order: CT Head Without Contrast Test: CT Head Without Contrast REASON FOR EXAMINATION: ams; ; CLINICAL HISTORY: Altered mental status.; TECHNIQUE: Multiple axial CT images were obtained through the brain without IV contrast material.; COMMENTS:; Comparison is made to the prior exam performed on 04/24/2016.; Right frontal ventricular peritoneal shunt is unchanged.; Mild increase in the size of the ventricular system which remains dilated.; Again are noted metallic coils at the topography of the basilar and right internal carotid arteries.; There is normal configuration of sella turcica. There are no intra or extra-axial collections. There; is no mass effect or midline shift. There is no evidence of hematoma formation. No hydrocephalus is p; resent. The ventricles are symmetrical. No abnormal calcifications are present.; There is diffuse age-appropriate cerebellar and cerebral atrophy with proportionally dilated ventricl; es and cortical sulci.; There are bilateral periventricular and subcortical white matter hypolucencies compatible with mild c; hronic microvascular disease.; Otherwise, no significant focal abnormalities are seen either in the posterior fossa or supratentoria; l compartment.; IMPRESSION:; 1. Age-appropriate cerebellar and cerebral atrophy.; 2. Mild chronic microvascular disease.; 3. Mild increase in hydrocephalus.; Thank you for your kind referral of this patient.; ; ; Outcome: 05/02 03:37 Decision to Hospitalize by Provider. mm11 07:35 Discharge Assessment: patient administered narcotics - no. ead 07:51 The following High Risk Discharge criteria are identified: None. Admitted to Med/Surg ead accompanied by tech, via stretcher, with chart. Condition: stable. CT Study completed. Property :Personal belongings accompany Pt. 07:51 Admission hand-off: Report Faxed Fax receipt verified by [facility] on 4 pav, states "can ead send the pt to floor.". 08:06 Patient left the ED. ead Signatures: Dispatcher [employer] EDMS Gianna Mcconnell, Brannon Reg gb Atif Stewart, BOUNTY HUNTER BOUNTY HUNTER Misael Duval, BUSINESS INTEGRATION ANALYST BUSINESS INTEGRATION ANALYST kb5 Volodymyr Butt, DO DO mm11 Kathe Gonzalez,RN RN ead Vi Dos Santos Christina,RN RN cf2 Corrections: (The following items were deleted from the chart) 07:35 07:16 BP 132 / 62 Auto; ead ead 07:35 07:23 Pulse 74bpm; Monitor; Pulse Ox 93%; ead ead Chart Complete MTDD
--- NOTE | 2016-05-04 09:06 | EDDOCDS ---
Physician Documentation [facility] Name: Suad Murcia Age: 70 yrs Sex: Female : 1945 Arrival Date: 05/01/2016 Time: 21:47 Bed 13 Private MD: Scott Mcgee D Disposition: 05/02/16 03:37 Hospitalization ordered by Jaspreet Carvajal for Inpatient Admission. Preliminary diagnosis is Weakness. - Bed requested for 4 [place]. - Status is Inpatient Admission. ead - Condition is Stable. - Problem is an acute exacerbation. - Symptoms have improved. Historical: - Allergies: SULFA (SULFONAMIDES); - Home Meds: 1. Advair Diskus 250-50 mcg/dose Inhl dsdv 1 puff 2 times per day 2. Zofran (as hydrochloride) 8 mg Oral tab 1 tab daily PRN 3. multivitamin Oral tab 1 tab daily 4. amlodipine 10 mg Oral tab 1 tab once daily - Social history: Smoking status: unknown if patient ever smoked tobacco. Race: White, Ethnicity: Not or No barriers to communication noted, The patient speaks fluent Divehi, Preferred Language: Divehi. - Family history: Not pertinent. - : Unable to assess if pt is on anticoagulants. Unable to Verify Home Med List with the patient / caregiver. Note Awaiting arrival of daughter to verify medications. Patient unable to verify/recall. - Exposure Risk Screening:: None identified. Vital Signs: 05/01 22:07 Pulse 102 MON; Pulse Ox 92% ; cf2 22:14 Pulse 104 MON; Pulse Ox 92% ; cf2 22:19 Pulse 102 MON; Pulse Ox 93% ; cf2 22:20 BP 140 / 74; Pulse 99; Resp 20; Temp 98.9; Pulse Ox 92% on R/A; Weight 58.97 kg / cf2 130.01 lbs; Height 5 ft. 1 in. (154.94 cm); Pain 8/10; 22:26 Pulse 100 MON; Pulse Ox 92% ; cf2 22:30 Pulse 98 MON; Pulse Ox 93% ; cf2 22:36 Pulse 100 MON; Pulse Ox 93% ; cf2 22:42 Pulse 100 MON; Pulse Ox 93% ; cf2 22:48 Pulse 104 MON; Pulse Ox 93% ; cf2 22:53 Pulse 98 MON; Pulse Ox 93% ; cf2 23:00 Pulse 112 MON; Pulse Ox 96% ; cf2 23:05 Pulse 96 MON; Pulse Ox 94% ; cf2 23:15 Pulse 100 MON; Pulse Ox 93% ; cf2 23:20 Pulse 98 MON; Pulse Ox 94% ; cf2 23:27 Pulse 100 MON; Pulse Ox 94% ; cf2 23:33 Pulse 98 MON; Pulse Ox 94% ; cf2 23:45 Pulse 100 MON; Pulse Ox 94% ; cf2 23:50 Pulse 100 MON; Pulse Ox 93% ; cf2 23:55 Pulse 94 MON; Pulse Ox 95% ; cf2 23:59 Pulse 98 MON; Pulse Ox 95% ; cf2 05/02 00:04 Pulse 92 MON; Pulse Ox 91% ; cf2 00:10 Pulse 96 MON; Pulse Ox 91% ; cf2 00:16 Pulse 92 MON; Pulse Ox 91% ; cf2 00:16 BP 122 / 59 (auto/); cf2 00:17 BP 122 / 59; Pulse 96; Resp 20; Temp 99.5(O); Pulse Ox 91% on R/A; kb5 00:31 Pulse 88 MON; Pulse Ox 91% ; cf2 00:31 BP 114 / 55 (auto/); cf2 00:46 Pulse 90 MON; Pulse Ox 93% ; cf2 00:46 BP 117 / 59 (auto/); cf2 01:01 Pulse 84 MON; cf2 01:01 BP 115 / 55 (auto/); cf2 01:16 Pulse 82 MON; Pulse Ox 94% ; cf2 01:16 BP 114 / 55 (auto/); cf2 01:31 Pulse 80 MON; Pulse Ox 92% ; cf2 01:31 BP 116 / 56 (auto/); cf2 01:50 Pulse 80 MON; Pulse Ox 91% ; cf2 01:50 BP 121 / 57 (auto/); cf2 02:01 Pulse 78 MON; Pulse Ox 94% ; cf2 02:01 BP 122 / 59 (auto/); cf2 02:16 Pulse 82 MON; Pulse Ox 94% ; cf2 02:16 BP 118 / 58 (auto/); cf2 02:31 Pulse 82 MON; Pulse Ox 97% ; cf2 02:31 BP 118 / 59 (auto/); cf2 02:46 Pulse 76 MON; Pulse Ox 95% ; cf2 02:46 BP 150 / 95 (auto/); cf2 03:01 Pulse 78 MON; Pulse Ox 96% ; cf2 03:01 BP 143 / 64 (auto/); cf2 03:16 Pulse 80 MON; Pulse Ox 95% ; cf2 03:16 BP 140 / 65 (auto/); cf2 03:31 Pulse 76 MON; cf2 03:31 BP 148 / 67 (auto/); cf2 03:46 Pulse 74 MON; cf2 03:46 BP 119 / 57 (auto/); cf2 04:01 Pulse 76 MON; cf2 04:01 BP 132 / 60 (auto/); cf2 04:16 Pulse 72 MON; cf2 04:16 BP 118 / 56 (auto/); cf2 04:31 Pulse 78 MON; cf2 04:31 BP 142 / 65 (auto/); cf2 04:46 Pulse 74 MON; Pulse Ox 92% ; cf2 04:46 BP 116 / 56 (auto/); cf2 05:01 Pulse 76 MON; Pulse Ox 94% ; cf2 05:01 BP 131 / 60 (auto/); cf2 05:16 Pulse 78 MON; Pulse Ox 93% ; cf2 05:16 BP 140 / 65 (auto/); cf2 05:31 Pulse 86 MON; cf2 05:31 BP 142 / 66 (auto/); cf2 05:46 Pulse 78 MON; Pulse Ox 94% ; cf2 05:46 BP 151 / 66 (auto/); cf2 06:01 Pulse 76 MON; Pulse Ox 93% ; cf2 06:01 BP 144 / 66 (auto/); cf2 06:16 Pulse 74 MON; Pulse Ox 92% ; cf2 06:16 BP 130 / 67 (auto/); cf2 06:31 Pulse 74 MON; Pulse Ox 92% ; cf2 06:31 BP 134 / 60 (auto/); cf2 06:46 BP 141 / 64 (auto/); cf2 06:46 Pulse 76 MON; Pulse Ox 93% ; cf2 07:01 BP 132 / 60 (auto/); ead 07:01 Pulse 72 MON; Pulse Ox 93% ; ead 07:23 BP 132 / 62; Pulse 74 MON; Resp 18; Temp 96.8(T); Pulse Ox 93% ; ead /18 22:20 Body Mass Index 24.56 (58.97 kg, 154.94 cm) cf2 MDM: 05/01 22:20 Ondansetron 4 mg IVP once ordered. ke 22:20 ketorolac 30 mg IVP once ordered. ke 22:20 IV Saline Lock ordered. ke 22:20 Undress patient appropriately for examination ordered. ke 22:20 NS 0.9% 1000 ml IV at 250 mL/hr continuous ordered. ke 22:21 Amylase Ordered. EDMS 22:21 Basic Metabolic Profile Ordered. EDMS 22:21 CBC with Diff Ordered. EDMS 22:21 Lipase Ordered. EDMS 22:21 Liver Profile Ordered. EDMS 22:21 Prothrombin Time Profile\E\INR Ordered. EDMS 22:21 Urinalysis Ordered. EDMS 22:21 Urine Culture Ordered. EDMS 22:21 CT ABD & PELVIS: No Contrast Ordered. EDMS 22:22 NOTHING BY MOUTH+DIET ordered. EDMS 22:23 -Blood Culture (Adults Only), peripheral from different site, or from device/port/PICC ke etc. if present ordered. 22:23 -Blood Culture Ordered. EDMS 22:24 Lactic Acid ([place] tube on ice) Ordered. EDMS 22:26 BLOOD CULTURES Ordered. EDMS 22:27 -Blood Culture (Adults Only), peripheral from different site, or from device/port/PICC kb5 etc. if present complete. 22:47 Financial registration complete. gjb 23:03 [facility] Payment Agreement was scanned into [employer] and attached to record. gjb 23:33 CBC with Diff Reviewed. ke 23:33 Amylase Reviewed. ke 23:33 Basic Metabolic Profile Reviewed. ke 23:33 Lipase Reviewed. ke 23:33 Liver Profile Reviewed. ke 23:33 Prothrombin Time Profile\E\INR Reviewed. ke 23:33 Lactic Acid ([place] tube on ice) Reviewed. ke 23:58 Urinalysis Reviewed. mm11 05/02 00:47 CT Chest Without Contrast Ordered. EDMS 00:47 Venous Blood Gas (large pea green tube on ice) Ordered. EDMS 00:47 Ammonia ([place] Tube on Ice, Not Pea Green) Ordered. EDMS 00:51 CT Head Without Contrast Ordered. EDMS 02:52 Venous Blood Gas (large pea green tube on ice) Reviewed. mm11 02:52 CT ABD & PELVIS: No Contrast Reviewed. mm11 02:52 CT Chest Without Contrast Reviewed. mm11 02:52 CT Head Without Contrast Reviewed. mm11 03:13 Ammonia ([place] Tube on Ice, Not Pea Green) Reviewed. mm11 03:28 BED REQUEST+ADM ordered. EDMS 05:52 Admission / Observation Status ordered. EDMS 05:52 NO ADDED SALT DIET ordered. EDMS 06:05 RESPIRATORY PANEL Ordered. EDMS 09:50 T-Sheet-- Draft Copy was scanned into [employer] and attached to record. 14:40 Radiology Report was scanned into [employer] and attached to record. gb Administered Medications: 05/01 23:15 Drug: Ondansetron 4 mg [ondansetron HCl 2 mg/mL intravenous solution (2 mL)] Route: cf2 IVP; Site: left antecubital; 23:15 Drug: ketorolac 30 mg [ketorolac 30 mg/mL (1 mL) injection solution (1 mL)] Route: IVP; cf2 Site: left antecubital; 23:15 Drug: NS 0.9% 1000 ml [sodium chloride 0.9 % intravenous solution] Route: IV; Rate: 250 cf2 mL/hr; Site: left antecubital; Signatures: Dispatcher [employer] EDVT Jeana Raines, RN RN kcs Gianna Mcconnell, Reg Reg gb Atif Stewart, FIRE CONTROL SYSTEM INSTALLER FIRE CONTROL SYSTEM INSTALLER Misael Duval, CARPENTER BRIDGE CARPENTER BRIDGE kb5 Volodymyr Butt, DO DO mm11 Kathe Gonzalez,RN RN Vi Ma [facility] Hilda YañezRN RN cf2 The chart was reviewed and I authenticate all verbal orders and agree with the evaluation and treatment provided.Attachments: 23:03 [facility] [place] Payment Agreement gjb 05/02 09:50 T-Sheet-- Draft Copy gb Chart Complete MTDD
[2016-05-04] MEDS: ENOXAPARIN 40 MG/0.4 ML SYRINGE (J1650) SC SCH (09:26)
[2016-05-04] MEDS: OMEPRAZOLE 20 MG CAP PO SCH (09:26)
--- NOTE | 2016-05-04 09:31 | IPNPDOC ---
Assessment/Plan Date Seen The patient was seen on 05/04/16. Problems Problems: (1) Metabolic encephalopathy Status: Acute Problem Specific Plan: Consult Specialist Problem Text: 05/02/16 intact SCRUM PRODUCT OWNER shunt per shunt series and per Kenyetta (2) Nonfunctioning ventriculoperitoneal shunt Status: Acute Problem Specific Plan: Consult Specialist Problem Text: Neurosurgery: Dr. Kumari consulted. requested Ct abd completed to eval for fluid collection around shunt. ordered. 05/04/2016: improved function per neurosurgery note. (3) Fever of unknown origin Status: Acute Problem Specific Plan: Consult Specialist Problem Text: nontoxic appearing s fever/elevated WBC 05/03/16 CXs obtained from SCRUM PRODUCT OWNER shunt 05/02/16 - PCR resp panel 05/01/16 BCX x 2/UCX NG (4) COPD (chronic obstructive pulmonary disease) Status: Chronic Problem Specific Plan: Monitor Clinically (5) Hypertension Status: Chronic Response to Treatment: Stable Problem Specific Plan: Monitor Clinically (6) Cerebral aneurysm Status: Chronic Problem Specific Plan: Monitor Clinically (7) Depression Status: Chronic Response to Treatment: Stable Problem Specific Plan: Monitor Clinically (8) GERD (gastroesophageal reflux disease) Status: Chronic Response to Treatment: Stable Problem Specific Plan: Monitor Clinically (9) Common bile duct (CBD) obstruction Status: Acute Problem Text: narrowing of CBD on cholangiogram. Cholecystostomy tube clamped. Plan on ERCP Friday05/06/2016 if family agreeable. Plan / VTE VTE Prophylaxis Ordered?: Yes (Lovenox) Plan Therapy: PT, OT Subjective Review of Systems CC/HPI The patient is a 70-year-old female admitted with a reason for visit of Metabolic Encephalopathy. Events since last encounter Patient is s/p multiple consults: ID: Tashia, neurosurgery: Kenyetta, General Surgery: Carlitos and gastroenterology: audrey. Cxs taken from SCRUM PRODUCT OWNER shunt by Neurosurgery and note states improved flow after cx obtained. Cholecystostomy tube clamped. Patient tolerating well with only c/o mild nausea. ID advised no abx until potential infectious source found. Per Surgery and gastrO: ERCP with brushings advised. Tentatively plan for Friday. Patients family contemplating if wants to proceed. Constitutional: Denies: Chills, Fever, Malaise, Night Sweats, Weakness ENT: Denies: Dysphagia, Ear Pain, Head Aches Pulmonary: Denies: Cough, Dyspnea Cardiovascular: Denies: Chest Pain, Lt Headedness, Orthopnea, Palpitations, Paroxysmal Noc. Dyspnea Gastrointestinal: Reports: Nausea (mild), Denies: Abdominal Pain, Diarrhea, Vomiting Musculoskeletal: Reports: Other Symptoms (general weakness) Neurological: Reports: Weakness, Denies: Change in speech, Confusion, Numbness Psych: Reports: Mood Normal, Denies: Depression, Memory Issues Objective Physical Examination General Exam: Positive: Alert, No Acute Distress Eye Exam: Positive: Conjunctiva & lids normal, EOMI, PERRLA, Negative: Sclera icteric ENT Exam: Positive: Atraumatic, Mucous membr. moist/pink, Pharynx Normal Neck Exam: Positive: Supple, Negative: JVD, thyromegaly Chest Exam: Positive: Clear to auscultation, Normal air movement Heart Exam: Positive: Normal S1, Normal S2, Rate Normal, Regular Rhythm, Negative: Murmurs, Rubs Abdomen Exam: Positive: Normal bowel sounds, Other (Cholecystsostomy tube in place), Soft, Negative: Hepatospenomegaly, Tenderness Extremity Exam: Positive: Normal pulses, Negative: Clubbing, Cyanosis, Edema Skin Exam: Positive: Nl turgor and temperature, Negative: Breakdown Neuro Exam: Positive: Other (vague in response. ) Psych Exam: Positive: Other (alert to self, date. I'm in hospital. vague in response) Vital Signs/I&O Vital Signs Date Time Temp Pulse Resp B/P Pulse Ox O2 Delivery O2 Flow Rate FiO2 05/04/16 05:50 97.0 75 17 118/60 94 Room Air I&O- Last 24 Hours up to 6 AM 05/04/16 06:00 Intake Total 120 ml Output Total 400 ml Balance -280 ml Laboratory Data Labs 24H Laboratory Tests 2 05/03/16 16:38: CSF Glucose 45, CSF Total Protein 35.8, CSF Tube Number TUBE 1 05/04/16 05:42: Anion Gap 10, Blood Urea Nitrogen 17, Creatinine 0.58, Sodium Level 136, Potassium Level 3.5, Chloride Level 101, Carbon Dioxide Level 25, Calcium Level 9.3, Glomerular Filtration Rate > 60.0 CBC/BMP Laboratory Tests 05/04/16 05:42 Calcium Level 9.3, Red Blood Count 4.13, Mean Corpuscular Volume 92.2, Mean Corpuscular Hemoglobin 31.1, Mean Corpuscular Hemoglobin Concent 33.8, Red Cell Distribution Width 13.8 Microbiology Microbiology 05/01/16 Blood Culture - Preliminary, Resulted No Growth after 48 hours. All Specime... 05/01/16 Blood Culture - Preliminary, Resulted No Growth after 48 hours. All Specime... 05/03/16 Fungal Smear, Received Pending 05/03/16 Fungal Culture, Received Pending 05/03/16 Gram Stain - Final, Resulted 05/03/16 CSF Culture, Resulted Pending 05/02/16 Respiratory Virus Panel (PCR) ([facility]) - Final, Complete 05/01/16 Urine Culture - Final, Complete 05/03/16 Anaerobic Culture, Received Pending Alvina Fan May 04, 2016 09:30 Yoseph Medina M.D. May 04, 2016 13:08
[2016-05-04] MEDS: ADVAIR DISKUS 250/50 INH PWD INH SCH ×2 (11:57→20:09)
[2016-05-04 14:00] VITALS: BP 124/58
--- NOTE | 2016-05-04 18:06 | REP ---
CT brain without contrast 05/04/2016 Indication: Follow up, ventricular size, shunt tab Comparison made with prior study 05/02/2016, 04/24/2016, and 04/17/2015 Findings: There is moderate ventriculomegaly and t right ventricular shunt which traverses the right frontal chencho hole, with tip in the right lateral ventricle. 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 Hydrocephalus is mildly increased from prior studies 04/17/2015 and 04/24/2016. There are moderate periventricular and subcortical white matter hypodensities consistent with chronic small vessel ischemic disease. There is no intracranial hemorrhage or extra-axial fluid collection. Visualized portions of the paranasal sinuses are clear. The right mastoid air cells are hypoplastic. Impression 1. Right ventricular shunt again noted with tip in the right lateral ventricle. There has been mild increase in hydrocephalous when compared with studies dating back to 04/17/2015; mild progression of chronic small vessel ischemic disease . 2. No acute intracranial pathology or hemorrhage 3. Two intracranial embolization coils are again noted and unchanged Signed by Bethany Grover MD 05/04/2016 05:58 P
[2016-05-04 21:10] VITALS: BP 141/65
[2016-05-04] MEDS: amLODIPine 10 MG TAB PO SCH (21:58)
[2016-05-04] MEDS: SERTRALINE HCL 50 MG TAB PO SCH (21:58)
[2016-05-05 05:25] VITALS: BP 138/61
[2016-05-05] MEDS: ACETAMINOPHEN TAB 650MG DOSE (2X325MG) PO PRN ×2 (07:29→21:02)
[2016-05-05] MEDS: OMEPRAZOLE 20 MG CAP PO SCH (08:14)
[2016-05-05] MEDS: ENOXAPARIN 40 MG/0.4 ML SYRINGE (J1650) SC SCH (08:14)
[2016-05-05] MEDS: ADVAIR DISKUS 250/50 INH PWD INH SCH ×2 (08:19→19:51)
[2016-05-05 08:25] LABS: MEAN CORPUSCULAR HEMOGLOBIN 31.2 pg (27.0-33.0); MEAN CORPUSCULAR HGB CONC 32.1 g/dl (32.0-36.5); RED CELL DISTRIBUTION WIDTH 14.9 % (11.5-14.5); WHITE BLOOD COUNT 7.6 K/mm3 (4.0-10.0)
[2016-05-05 08:31] LABS: MEAN CORPUSCULAR VOLUME 97.3 fl (80.0-96.0)
[2016-05-05 08:33] LABS: ANION GAP 8 MEQ/L (8-16); BLOOD UREA NITROGEN 16 MG/DL (7-18); CALCIUM LEVEL 9.9 MG/DL (8.8-10.2); CARBON DIOXIDE LEVEL 28 MEQ/L (21-32); CHLORIDE LEVEL 103 MEQ/L (98-107); CREATININE FOR GFR 0.68 MG/DL (0.55-1.02); GLOMERULAR FILTRATION RATE > 60.0 (>39); GLUCOSE, FASTING 114 MG/DL (83-110); POTASSIUM SERUM 3.4 MEQ/L (3.5-5.1); SODIUM LEVEL 139 MEQ/L (136-145)
[2016-05-05] MEDS ORDERED: POTASSIUM CHLORIDE 10 MEQ SR TABLET PO ONE (10:00)
--- NOTE | 2016-05-05 10:39 | IPNPDOC ---
Assessment/Plan Date Seen The patient was seen on 05/05/16. Problems Problems: (1) Metabolic encephalopathy Status: Acute Problem Specific Plan: Consult Specialist Problem Text: 05/02/16 intact SHELVER shunt per shunt series and per Kenyetta 05/05/2016: planned ERCP with hopeful removal of cholecystostomy tube in near future. Drs. Urbina and Chantal on board. (2) Nonfunctioning ventriculoperitoneal shunt Status: Acute Problem Specific Plan: Consult Specialist Problem Text: Neurosurgery: Dr. Kumari consulted. requested Ct abd completed to eval for fluid collection around shunt. ordered. 05/04/2016: improved function per neurosurgery note. (3) Fever of unknown origin Status: Resolved Problem Specific Plan: Consult Specialist Problem Text: nontoxic appearing s fever/elevated WBC 05/03/16 CXs obtained from SHELVER shunt 05/02/16 - PCR resp panel 05/01/16 BCX x 2/UCX NG (4) COPD (chronic obstructive pulmonary disease) Status: Chronic Problem Specific Plan: Monitor Clinically (5) Hypertension Status: Chronic Response to Treatment: Stable Problem Specific Plan: Monitor Clinically (6) Cerebral aneurysm Status: Chronic Problem Specific Plan: Monitor Clinically (7) Depression Status: Chronic Response to Treatment: Stable Problem Specific Plan: Monitor Clinically (8) GERD (gastroesophageal reflux disease) Status: Chronic Response to Treatment: Stable Problem Specific Plan: Monitor Clinically (9) Common bile duct (CBD) obstruction Status: Acute Problem Text: narrowing of CBD on cholangiogram. Cholecystostomy tube clamped. Plan on ERCP Friday05/06/2016 if family agreeable. Plan / VTE VTE Prophylaxis Ordered?: Yes (Lovenox) Plan Therapy: PT, OT Subjective Review of Systems CC/HPI The patient is a 70-year-old female admitted with a reason for visit of Metabolic Encephalopathy. Events since last encounter Continues with mild ENRIQUEZ. Getting OOB with assistance. Constitutional: Denies: Chills, Fever, Malaise, Night Sweats, Weakness Eyes: Denies: Pain, Vision change ENT: Reports: Head Aches Pulmonary: Denies: Cough, Dyspnea Cardiovascular: Denies: Chest Pain, Lt Headedness, Orthopnea, Palpitations, Paroxysmal Noc. Dyspnea Gastrointestinal: Denies: Abdominal Pain, Diarrhea, Nausea, Vomiting Genitourinary: Denies: Dysuria, Frequency, Incontinence, Retention Psych: Reports: Mood Normal, Denies: Depression, Memory Issues Objective Physical Examination General Exam: Positive: Alert, No Acute Distress Eye Exam: Positive: Conjunctiva & lids normal, EOMI, PERRLA, Negative: Sclera icteric ENT Exam: Positive: Atraumatic, Mucous membr. moist/pink, Pharynx Normal Neck Exam: Positive: Supple, Negative: JVD, thyromegaly Chest Exam: Positive: Clear to auscultation, Normal air movement Heart Exam: Positive: Normal S1, Normal S2, Rate Normal, Regular Rhythm, Negative: Murmurs, Rubs Abdomen Exam: Positive: Normal bowel sounds, Other (Cholecystsostomy tube in place), Soft, Negative: Hepatospenomegaly, Tenderness Extremity Exam: Positive: Normal pulses, Negative: Clubbing, Cyanosis, Edema Skin Exam: Positive: Nl turgor and temperature, Negative: Breakdown Neuro Exam: Positive: Other (vague in response. ) Psych Exam: Positive: Oriented x 3 (mildly irritable) Vital Signs/I&O Vital Signs Date Time Temp Pulse Resp B/P Pulse Ox O2 Delivery O2 Flow Rate FiO2 05/05/16 05:25 96.8 76 17 138/61 93 Room Air I&O- Last 24 Hours up to 6 AM 05/05/16 05:59 Intake Total 1080 ml Output Total 850 ml Balance 230 ml Laboratory Data Labs 24H Laboratory Tests 2 05/05/16 08:10: Anion Gap 8, C-Reactive Protein, Quantitative 0.70H, Blood Urea Nitrogen 16, Creatinine 0.68, Sodium Level 139, Potassium Level 3.4L, Chloride Level 103, Carbon Dioxide Level 28, Calcium Level 9.9, Erythrocyte Sedimentation Rate 35H, Glomerular Filtration Rate > 60.0 CBC/BMP Laboratory Tests 05/05/16 08:10 Calcium Level 9.9, Red Blood Count 4.39, Mean Corpuscular Volume 97.3 #H, Mean Corpuscular Hemoglobin 31.2, Mean Corpuscular Hemoglobin Concent 32.1, Red Cell Distribution Width 14.9 H Microbiology Microbiology 05/01/16 Blood Culture - Preliminary, Resulted No Growth after 72 hours. All specime... 05/01/16 Blood Culture - Preliminary, Resulted No Growth after 72 hours. All specime... 05/03/16 Fungal Smear, Received Pending 05/03/16 Fungal Culture, Received Pending 05/03/16 Gram Stain - Final, Resulted 05/03/16 CSF Culture, Resulted Pending 05/02/16 Respiratory Virus Panel (PCR) ([facility]) - Final, Complete 05/01/16 Urine Culture - Final, Complete 05/03/16 Anaerobic Culture - Final, Complete Alvina Fan [facility] May 05, 2016 10:39
[2016-05-05 14:00] VITALS: BP 121/61
[2016-05-05] MEDS: SERTRALINE HCL 50 MG TAB PO SCH (20:07)
[2016-05-05] MEDS: amLODIPine 10 MG TAB PO SCH (20:10)
[2016-05-05 22:00] VITALS: BP 134/64
[2016-05-06] MEDS: ACETAMINOPHEN TAB 650MG DOSE (2X325MG) PO PRN (05:57)
[2016-05-06] MEDS: ONDANSETRON 4MG/2ML VIAL (J2405) IV PRN ×2 (05:57→22:55)
[2016-05-06 06:00] VITALS: BP 127/60
[2016-05-06] MEDS ORDERED: VANCOMYCIN HCL 1,000 MG, VIAL MATE ADAPTER 1 EACH in D5W 250 ML IV SCH (06:00)
[2016-05-06] MEDS ORDERED: GENTAMICIN 80 MG in APPROPRIATE DILUENT 1 EA IV SCH (06:00)
[2016-05-06] MEDS ORDERED: GENTAMICIN 10 MG/ML 2ML VIAL*PRES.FREE* (J1580) IV ONE (06:00)
[2016-05-06 06:11] LABS: MEAN CORPUSCULAR HEMOGLOBIN 31.7 pg (27.0-33.0); MEAN CORPUSCULAR HGB CONC 33.8 g/dl (32.0-36.5); MEAN CORPUSCULAR VOLUME 93.8 fl (80.0-96.0); WHITE BLOOD COUNT 6.7 K/mm3 (4.0-10.0)
[2016-05-06 06:34] LABS: ANION GAP 10 MEQ/L (8-16); BLOOD UREA NITROGEN 14 MG/DL (7-18); CALCIUM LEVEL 9.6 MG/DL (8.8-10.2); CARBON DIOXIDE LEVEL 23 MEQ/L (21-32); CHLORIDE LEVEL 108 MEQ/L (98-107); CREATININE FOR GFR 0.56 MG/DL (0.55-1.02); GLOMERULAR FILTRATION RATE > 60.0 (>39); GLUCOSE, FASTING 92 MG/DL (83-110); POTASSIUM SERUM 3.9 MEQ/L (3.5-5.1); SODIUM LEVEL 141 MEQ/L (136-145)
[2016-05-06] MEDS: ADVAIR DISKUS 250/50 INH PWD INH SCH ×2 (08:22→20:16)
[2016-05-06] MEDS: OMEPRAZOLE 20 MG CAP PO SCH (08:53)
[2016-05-06] MEDS: ENOXAPARIN 40 MG/0.4 ML SYRINGE (J1650) SC SCH (09:00)
[2016-05-06 14:00] VITALS: BP 128/61
[2016-05-06] MEDS ORDERED: ISOVUE-300 61% 50ML VIAL (Q9967) As Ordered ONE ×2 (14:47→14:49)
[2016-05-06] MEDS: KCL 20MEQ IN 0.45NS 1000ML 1,000 ML IV SCH ×2 (15:45→21:38)
[2016-05-06] MEDS ORDERED: LIDOCAINE 2% INJ 100 MG/5 ML SDV (FOR ANES.) As Ordered ONE (16:08)
[2016-05-06] MEDS ORDERED: fentaNYL 100 MCG/2 ML INJECTION (J3010) As Ordered ONE ×2 (16:08→19:04)
[2016-05-06] MEDS ORDERED: MIDAZOLAM INJ 2 MG/2 ML VIAL (J2250) As Ordered ONE (16:08)
[2016-05-06] MEDS ORDERED: PROPOFOL 200 MG/20 ML VIAL As Ordered ONE (16:08)
--- NOTE | 2016-05-06 16:47 | IPNPDOC ---
Assessment/Plan Date Seen The patient was seen on 05/06/16. Problems Problems: (1) Metabolic encephalopathy Status: Acute Problem Specific Plan: Consult Specialist Problem Text: 05/02/16 intact CHART CHANGER shunt per shunt series and per Kenyetta 05/05/2016: planned ERCP with hopeful removal of cholecystostomy tube in near future. Drs. Urbina and Chantal on board. 05/06/16: CSF cultures positive for staph epidermidis; Dr. Kumari has ordered and MRI with and without contrast to assess for ventriculitis however this cannot be done until the composition of her shunt is determined to ensure that she can safely get an MRI; Dr. Kumari states that if she has a CSF infection, the shunt will need to be removed. Dr. Lao was notified of culture results and will see the patient today. ERCP is planned for later today and is pending. (2) Nonfunctioning ventriculoperitoneal shunt Status: Acute Problem Specific Plan: Consult Specialist Problem Text: Neurosurgery: Dr. Kumari consulted. requested Ct abd completed to eval for fluid collection around shunt. ordered. 05/04/2016: improved function per neurosurgery note. 05/06/16: MRI of brain with and without contrast is pending (3) Fever of unknown origin Status: Resolved Problem Specific Plan: Consult Specialist Problem Text: nontoxic appearing s fever/elevated WBC; see above 05/03/16 CXs obtained from CHART CHANGER shunt 05/02/16 - PCR resp panel 05/01/16 BCX x 2/UCX NG (4) COPD (chronic obstructive pulmonary disease) Status: Chronic Response to Treatment: Stable Problem Specific Plan: Monitor Clinically (5) Hypertension Status: Chronic Response to Treatment: Stable Problem Specific Plan: Monitor Clinically (6) Cerebral aneurysm Status: Chronic Problem Specific Plan: Monitor Clinically (7) Depression Status: Chronic Response to Treatment: Stable Problem Specific Plan: Monitor Clinically (8) GERD (gastroesophageal reflux disease) Status: Chronic Response to Treatment: Stable Problem Specific Plan: Monitor Clinically (9) Common bile duct (CBD) obstruction Status: Acute Problem Text: Narrowing of CBD on cholangiogram. Cholecystostomy tube clamped. ERCP planned for later today. Plan / VTE VTE Prophylaxis Ordered?: Yes (Lovenox) Plan Therapy: PT, OT Subjective Review of Systems CC/HPI The patient is a 70-year-old female admitted with a reason for visit of Metabolic Encephalopathy. Events since last encounter Patient denies confusion today and has no complaints. Constitutional: Denies: Chills, Fever, Malaise ENT: Denies: Head Aches Pulmonary: Denies: Dyspnea Cardiovascular: Denies: Chest Pain Gastrointestinal: Denies: Abdominal Pain, Nausea, Vomiting Genitourinary: Denies: Dysuria Musculoskeletal: Denies: Back Pain, Neck Pain Neurological: Denies: Change in speech, Confusion, Numbness, Weakness Objective Physical Examination General Exam: Positive: Alert, No Acute Distress Eye Exam: Positive: Conjunctiva & lids normal, EOMI, PERRLA, Negative: Sclera icteric ENT Exam: Positive: Atraumatic, Mucous membr. moist/pink, Other ENT (CHART CHANGER shunt present in right scalp), Pharynx Normal Neck Exam: Positive: Supple, Negative: JVD, thyromegaly Chest Exam: Positive: Clear to auscultation, Normal air movement Heart Exam: Positive: Normal S1, Normal S2, Rate Normal, Regular Rhythm, Negative: Murmurs, Rubs Abdomen Exam: Positive: Normal bowel sounds, Other (Cholecystsostomy tube in place), Soft, Negative: Hepatospenomegaly, Tenderness Extremity Exam: Positive: Normal pulses, Negative: Clubbing, Cyanosis, Edema Skin Exam: Positive: Nl turgor and temperature, Negative: Breakdown Neuro Exam: Positive: Other (vague in response. ) Psych Exam: Positive: Oriented x 3 Vital Signs/I&O Vital Signs Date Time Temp Pulse Resp B/P Pulse Ox O2 Delivery O2 Flow Rate FiO2 05/06/16 14:00 97.2 57 14 128/61 96 Room Air I&O- Last 24 Hours up to 6 AM 05/06/16 05:59 Intake Total 1440 ml Output Total 1750 ml Balance -310 ml Laboratory Data Labs 24H Laboratory Tests 2 05/06/16 05:38: Anion Gap 10, Blood Urea Nitrogen 14, Creatinine 0.56, Sodium Level 141, Potassium Level 3.9, Chloride Level 108H, Carbon Dioxide Level 23, Calcium Level 9.6, Glomerular Filtration Rate > 60.0 CBC/BMP Laboratory Tests 05/06/16 05:38 Calcium Level 9.6, Red Blood Count 3.89 L, Mean Corpuscular Volume 93.8, Mean Corpuscular Hemoglobin 31.7, Mean Corpuscular Hemoglobin Concent 33.8, Red Cell Distribution Width 14.0 Microbiology Microbiology 05/01/16 Blood Culture - Preliminary, Resulted No Growth after 72 hours. All specime... 05/01/16 Blood Culture - Preliminary, Resulted No Growth after 72 hours. All specime... 05/03/16 Fungal Smear, Received Pending 05/03/16 Fungal Culture, Received Pending 05/03/16 Gram Stain - Final, Complete 05/03/16 CSF Culture - Final, Complete Staphylococcus Epidermidis Staphylococcus Epidermidis#2 05/02/16 Respiratory Virus Panel (PCR) ([facility]) - Final, Complete 05/01/16 Urine Culture - Final, Complete 05/03/16 Anaerobic Culture - Final, Complete AMELIA RYAN MD May 06, 2016 16:47
[2016-05-06] MEDS ORDERED: ROCURONIUM BROMIDE 50 MG/5 ML VIAL As Ordered ONE (18:00)
[2016-05-06] MEDS ORDERED: VANCOMYCIN 1000 MG/20 ML VIAL (J3370) As Ordered ONE (18:13)
[2016-05-06] MEDS ORDERED: dexameTHASONE 4 MG/ML 1ML VIAL (J1100) As Ordered ONE (18:48)
[2016-05-06] MEDS ORDERED: METOCLOPRAMIDE INJ 10MG/2ML VIAL (J2765) As Ordered ONE (18:50)
[2016-05-06] MEDS ORDERED: ePHEDrine SULFATE 25 MG/5 ML(5MG/ML) SYRINGE As Ordered ONE (19:11)
[2016-05-06] MEDS ORDERED: ONDANSETRON 4MG/2ML VIAL (J2405) As Ordered ONE (19:38)
[2016-05-06] MEDS ORDERED: SUGAMMADEX SODIUM 500 MG/5 ML VIAL (BRIDION) As Ordered ONE (19:39)
--- NOTE | 2016-05-06 20:28 | ROOR ---
Patient Name: Suad Murcia Procedure Date: 05/06/2016 6:18 PM Date of : 1945 Age: 70 Room: Main OR Gender: Female Note Status: Finalized Procedure: ERCP Indications: Common bile duct stricture, eccentric 1.5 cm distal CBD stricture seen in cholangiogram (via cholecystostomy tube) Providers: Jaspreet MARQUEZ MD Referring MD: Deshawn Butcher MD Requesting Provider: Medicines: General Anesthesia Complications: No immediate complications. Procedure: Pre-Anesthesia Assessment: - The heart rate, respiratory rate, oxygen saturations, blood pressure, adequacy of pulmonary ventilation, and response to care were monitored throughout the procedure. The Duodenoscope was introduced through the mouth, and advanced to the duodenum without successful cannulation. The patient tolerated the procedure well. The ERCP was aborted due to failed cannulation. The ERCP was performed with difficulty due to challenging cannulation because of abnormal anatomy. The patient tolerated the procedure well. Findings: The soil science professor film was normal. The esophagus was successfully intubated under direct vision. The scope was advanced to a normal major papilla in the descending duodenum without detailed examination of the pharynx, larynx and associated structures, and upper GI tract. The upper GI tract was grossly normal. Impression: - Attempts at a cholangiogram failed. Recommendation: - Watch for pancreatitis, bleeding, perforation, and cholangitis. - I will ask Interventional radiology for assist in placing stent/biopsy Jaspreet Marquez MD Jaspreet MARQUEZ MD 05/06/2016 8:28:23 PM This report has been signed electronically. Number of Addenda: 0 Note Initiated On: 05/06/2016 6:18 PM Estimated Blood Loss: Estimated blood loss: none.
[2016-05-06] MEDS ORDERED: fentaNYL 100 MCG/2 ML INJECTION (J3010) IV PRN (20:30)
[2016-05-06] MEDS ORDERED: LR 1,000 ML IV SCH (20:30)
[2016-05-06] MEDS ORDERED: ONDANSETRON 4MG/2ML VIAL (J2405) IV PRN (20:30)
[2016-05-06] MEDS ORDERED: METOCLOPRAMIDE INJ 10MG/2ML VIAL (J2765) IV PRN (20:30)
[2016-05-06 21:17] VITALS: BP 148/67
[2016-05-06] MEDS: amLODIPine 10 MG TAB PO SCH (21:38)
[2016-05-06] MEDS: SERTRALINE HCL 50 MG TAB PO SCH (21:38)
[2016-05-06 21:45] VITALS: BP 134/64
[2016-05-06 22:58] VITALS: BP 144/65
[2016-05-06 23:44] VITALS: BP 137/63
[2016-05-07] VITALS (10 sets, daily range): BP systolic 122–161; BP diastolic 58–70
[2016-05-07] MEDS: ACETAMINOPHEN TAB 650MG DOSE (2X325MG) PO PRN (01:09)
[2016-05-07] MEDS: traMADol 50 MG TAB PO PRN (01:53)
--- NOTE | 2016-05-07 05:23 | REP ---
Clinical: ERCP. Technique: Real time intraoperative fluoroscopic images. Findings: Multiple images demonstrate contrast injection possibly into the duodenum although extravasation cannot be excluded by current images. No definite gallbladder or biliary ductal system is appreciated. Total fluoroscopic time 7 minutes 42 seconds. Impression: No evidence for gallbladder or biliary ductal dilatation. Contrast either extends into duodenum versus extravasation which cannot be excluded by current imaging. Signed by Cordell Ramos MD 05/07/2016 05:15 A
[2016-05-07] MEDS: KCL 20MEQ IN 0.45NS 1000ML 1,000 ML IV SCH ×3 (06:03→20:21)
[2016-05-07 06:56] LABS: MEAN CORPUSCULAR HEMOGLOBIN 31.5 pg (27.0-33.0); MEAN CORPUSCULAR VOLUME 92.7 fl (80.0-96.0); RED CELL DISTRIBUTION WIDTH 13.7 % (11.5-14.5); WHITE BLOOD COUNT 6.5 K/mm3 (4.0-10.0)
[2016-05-07 07:15] LABS: ANION GAP 11 MEQ/L (8-16); BLOOD UREA NITROGEN 11 MG/DL (7-18); CALCIUM LEVEL 9.4 MG/DL (8.8-10.2); CARBON DIOXIDE LEVEL 23 MEQ/L (21-32); CHLORIDE LEVEL 103 MEQ/L (98-107); CREATININE FOR GFR 0.57 MG/DL (0.55-1.02); GLOMERULAR FILTRATION RATE > 60.0 (>39); GLUCOSE, FASTING 127 MG/DL (83-110); POTASSIUM SERUM 4.4 MEQ/L (3.5-5.1); SODIUM LEVEL 137 MEQ/L (136-145)
[2016-05-07] MEDS: ADVAIR DISKUS 250/50 INH PWD INH SCH ×2 (07:44→19:58)
[2016-05-07] MEDS: ENOXAPARIN 40 MG/0.4 ML SYRINGE (J1650) SC SCH (09:00)
[2016-05-07] MEDS: OMEPRAZOLE 20 MG CAP PO SCH (09:42)
[2016-05-07] MEDS ORDERED: SODIUM BICARBONATE 8.4% INJ 50MEQ 50 ML VIAL As Ordered ONE (10:59)
[2016-05-07] MEDS ORDERED: LIDOCAINE 2% MDV 20 ML VIAL As Ordered ONE (10:59)
[2016-05-07] MEDS ORDERED: ISOVUE-300 61% 50ML VIAL (Q9967) As Ordered ONE ×4 (11:00→14:15)
[2016-05-07] MEDS ORDERED: CIPROFLOXACIN/D5W 400 MG/200 ML BAG (J0744) As Ordered ONE (11:01)
[2016-05-07] MEDS ORDERED: CIPROFLOXACIN 400 MG in APPROPRIATE DILUENT 1 EA IV ONE (11:15)
[2016-05-07] MEDS ORDERED: fentaNYL 100 MCG/2 ML INJECTION (J3010) As Ordered ONE (11:53)
[2016-05-07] MEDS ORDERED: ONDANSETRON 4MG/2ML VIAL (J2405) As Ordered ONE (15:24)
[2016-05-07] MEDS: ONDANSETRON 4MG/2ML VIAL (J2405) IV PRN (15:25)
[2016-05-07] MEDS ORDERED: ONDANSETRON 4MG/2ML VIAL (J2405) IV PRN (16:00)
[2016-05-07] MEDS ORDERED: PERCOCET 5MG/325MG TAB PO PRN (16:00)
[2016-05-07] MEDS ORDERED: fentaNYL 100 MCG/2 ML INJECTION (J3010) IV PRN (16:00)
[2016-05-07] MEDS ORDERED: METOCLOPRAMIDE INJ 10MG/2ML VIAL (J2765) IV PRN (16:00)
[2016-05-07] MEDS ORDERED: LR 1,000 ML IV SCH (16:00)
--- NOTE | 2016-05-07 17:21 | IPNPDOC ---
Date/Time Seen The patient was seen on 05/07/16 at 16:55. Progress Note SUBJECTIVE: Patient is a 70-year-old female with common bile duct stenosis. Patient was reporting no pain at this time. No nausea. Patient did have some nausea the previous day. OBJECTIVE: PHYSICAL EXAMINATION: VITAL SIGNS: Please see below. GENERAL: Alert and cooperative. No acute distress. HEENT: Eyes open spontaneously. CARDIOVASCULAR: Normal S1 and S2 no clicks rubs gallops or murmurs. RESPIRATORY: Equal bilaterally. ABDOMINAL: Cholecystostomy tube is still closed off. No pain to palpation. LABORATORY DATA: Please see below. Imaging: ERCP 05/07. Attempts at cholangiogram failed. GI is asking interventional radiologist for assistance in placing stent. MICROBIOLOGY: Please see below. ASSESSMENT AND PLAN: Patient is a 70-year-old female with common bile duct stenosis PROBLEMS: 1. Common Bile Duct Stenosis 2. Cholecystostomy Tube DISPOSITION: Patient underwent an ERCP. Was not able to attempt cholangiogram. GI is asking interventional radiologist for assistance in placing stent. Continue monitoring patient at this time. Plan is to discuss removal of cholecystostomy tube once stent is in place. Continue medical management. Discussed with Dr. Urbina. VS, I&O, 24H, Fishbone VS, I&O, 24H, Fishbone Vital Signs Date Time Temp Pulse Resp B/P Pulse Ox O2 Delivery O2 Flow Rate FiO2 05/07/16 16:03 98.3 67 20 100/51 97 Nasal Cannula 3 I&O- Last 24 Hours up to 6 AM 05/07/16 06:00 Intake Total 960 ml Output Total 400 ml Balance 560 ml Laboratory Tests 2 05/07/16 06:41: Anion Gap 11, Blood Urea Nitrogen 11, Creatinine 0.57, Sodium Level 137, Potassium Level 4.4, Chloride Level 103, Carbon Dioxide Level 23, Calcium Level 9.4, Glomerular Filtration Rate > 60.0 Laboratory Tests 05/07/16 06:41 Calcium Level 9.4, Red Blood Count 4.09, Mean Corpuscular Volume 92.7, Mean Corpuscular Hemoglobin 31.5, Mean Corpuscular Hemoglobin Concent 34.0, Red Cell Distribution Width 13.7 Microbiology 05/01/16 Blood Culture - Final, Complete NO GROWTH AFTER 5 DAYS 05/01/16 Blood Culture - Final, Complete NO GROWTH AFTER 5 DAYS 05/03/16 Fungal Smear, Received Pending 05/03/16 Fungal Culture, Received Pending 05/03/16 Gram Stain - Final, Complete 05/03/16 CSF Culture - Final, Complete Staphylococcus Epidermidis Staphylococcus Epidermidis#2 05/02/16 Respiratory Virus Panel (PCR) ([facility]) - Final, Complete 05/01/16 Urine Culture - Final, Complete 05/03/16 Anaerobic Culture - Final, Complete GME ATTESTATION GME ATTESTATION My preceptor for this patient encounter was Dr. Urbina and he was physically present in the building during the encounter and was fully available. As needed , all aspects of the patient interview, examination, medical decision making process, and medical care plan development were reviewed and approved by the preceptor. Preceptor is aware and concurs with the plan as stated in the body of this note and will attest to such by his/her cosignature. HAFSA WINSTON DO May 07, 2016 17:03
--- NOTE | 2016-05-07 18:11 | IPNPDOC ---
Assessment/Plan Date Seen The patient was seen on 05/07/16. 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 epidermiditis species-few and moderate-MRI brain pending 05/02/16 - PCR resp panel 05/01/16 BCX x 2/UCX NG (2) Common bile duct (CBD) obstruction Status: Acute Problem Text: 05/07/16 percutaneous cholangiogram c CBD to SB drainage and biopsy by Dr. Centeno 05/06/16 ERCP unable to perform cholangiogram-Chantal to ask IR for CBD stent placement Narrowing of CBD on cholangiogram. Cholecystostomy tube clamped. . (3) Metabolic encephalopathy Status: Acute Problem Specific Plan: Consult Specialist Problem Text: 05/02/16 intact PANEL MACHINE TENDER shunt per shunt series and per [place] 05/05/2016: planned ERCP with hopeful removal of cholecystostomy tube in near future. Drs. Urbina and Chantal on board. 05/06/16: CSF cultures positive for staph epidermidis; Dr. Kumari has ordered and MRI with and without contrast to assess for ventriculitis however this cannot be done until the composition of her shunt is determined to ensure that she can safely get an MRI; Dr. Kumari states that if she has a CSF infection, the shunt will need to be removed. Dr. Lao was notified of culture results and will see the patient today. ERCP is planned for later today and is pending. (4) Nonfunctioning ventriculoperitoneal shunt Status: Acute Problem Specific Plan: Consult Specialist Problem Text: Neurosurgery: Dr. Kumari consulted. requested Ct abd completed to eval for fluid collection around shunt. ordered. 05/04/2016: improved function per neurosurgery note. 05/06/16: MRI of brain with and without contrast is pending (5) COPD (chronic obstructive pulmonary disease) Status: Chronic Response to Treatment: Stable Problem Specific Plan: Monitor Clinically (6) Hypertension Status: Chronic Response to Treatment: Stable Problem Specific Plan: Monitor Clinically (7) Cerebral aneurysm Status: Chronic Problem Specific Plan: Monitor Clinically (8) Depression Status: Chronic Response to Treatment: Stable Problem Specific Plan: Monitor Clinically Plan / VTE VTE Prophylaxis Ordered?: Yes (Lovenox) Plan Therapy: PT, OT Subjective Review of Systems CC/HPI The patient is a 70-year-old female admitted with a reason for visit of Metabolic Encephalopathy. Objective Physical Examination General Exam: Positive: Alert, No Acute Distress Eye Exam: Positive: Conjunctiva & lids normal, EOMI, PERRLA, Negative: Sclera icteric ENT Exam: Positive: Atraumatic, Mucous membr. moist/pink, Other ENT (PANEL MACHINE TENDER shunt present in right scalp), Pharynx Normal Neck Exam: Positive: Supple, Negative: JVD, thyromegaly Chest Exam: Positive: Clear to auscultation, Normal air movement Heart Exam: Positive: Normal S1, Normal S2, Rate Normal, Regular Rhythm, Negative: Murmurs, Rubs Abdomen Exam: Positive: Normal bowel sounds, Other (Cholecystsostomy tube in place), Soft, Negative: Hepatospenomegaly, Tenderness Extremity Exam: Positive: Normal pulses, Negative: Clubbing, Cyanosis, Edema Skin Exam: Positive: Nl turgor and temperature, Negative: Breakdown Neuro Exam: Positive: Other (vague in response. ) Psych Exam: Positive: Oriented x 3 Vital Signs/I&O Vital Signs Date Time Temp Pulse Resp B/P Pulse Ox O2 Delivery O2 Flow Rate FiO2 05/07/16 17:20 99.3 80 16 132/61 95 Nasal Cannula 3.0 I&O- Last 24 Hours up to 6 AM 05/07/16 06:00 Intake Total 960 ml Output Total 400 ml Balance 560 ml Laboratory Data Labs 24H Laboratory Tests 2 05/07/16 06:41: Anion Gap 11, Blood Urea Nitrogen 11, Creatinine 0.57, Sodium Level 137, Potassium Level 4.4, Chloride Level 103, Carbon Dioxide Level 23, Calcium Level 9.4, Glomerular Filtration Rate > 60.0 CBC/BMP Laboratory Tests 05/07/16 06:41 Calcium Level 9.4, Red Blood Count 4.09, Mean Corpuscular Volume 92.7, Mean Corpuscular Hemoglobin 31.5, Mean Corpuscular Hemoglobin Concent 34.0, Red Cell Distribution Width 13.7 Microbiology Microbiology 05/01/16 Blood Culture - Final, Complete NO GROWTH AFTER 5 DAYS 05/01/16 Blood Culture - Final, Complete NO GROWTH AFTER 5 DAYS 05/03/16 Fungal Smear, Received Pending 05/03/16 Fungal Culture, Received Pending 05/03/16 Gram Stain - Final, Complete 05/03/16 CSF Culture - Final, Complete Staphylococcus Epidermidis Staphylococcus Epidermidis#2 05/02/16 Respiratory Virus Panel (PCR) ([facility]) - Final, Complete 05/01/16 Urine Culture - Final, Complete 05/03/16 Anaerobic Culture - Final, Complete Yoseph Medina M.D. May 07, 2016 18:11
--- NOTE | 2016-05-07 18:29 | IPN ---
DATE: 05/07/2016 SUBJECTIVE: Eloina seems to be more lethargic today. She does not have any complaints. No nausea, vomiting or diarrhea. She states she has a mild headache. She is kind of sleepy. OBJECTIVE: VITAL SIGNS: On physical exam she is afebrile. Temperature maximum (T-max) is 99.3, pulse 80, respirations 16, blood pressure 132/61, oxygen saturation 95% on three liters nasal cannula, which has been increased from two liters. HEART: Normal S1, S2, distant. No murmurs. ABDOMEN: Soft, tender in the left upper quadrant. EXTREMITIES: No clubbing, cyanosis or edema. No calf tenderness. NECK: Supple. LABORATORY DATA: White count 6.5, hemoglobin 12.9, hematocrit 37.9, platelets 311. Sodium 137, potassium 4.4, chloride 103, bicarb 23, BUN 11, creatinine 0.57, glucose 127, calcium 9.4, CRP 0.7. MICROBIOLOGY: CSF culture was positive for Staphylococcus epidermidis of two different colonies. Blood cell count was never sent and protein and glucose were normal. I called the lab and discussed with the laborer construction or leak gang. She will discuss it with her hot strip mill supervisor. IMAGING: The patient had an ERCP procedure as well done, but was not able to attempt a cholangiogram. Cholecystotomy tube is still in place but the drainage bag has been removed. He has been clamped. IMPRESSION: 1. Shunt malfunction with possible infection versus colonization with a Staphylococcus epidermidis. My suspicion is just colonization, not infection. I have recommended to repeated cerebrospinal fluid (CSF) tap and obtaining a cell count as treating without removing the ventriculoperitoneal (PET RESORT CONCIERGE) shunt is going to fail. The success of that is only 25%-35%. She is currently on intravenous (IV) vancomycin. 2. Cholecystitis with cholecystotomy tube, followed up by Dr. Urbina. PLAN: Continue IV vancomycin. Discontinue gentamicin. Please obtain consent from the patient's family regarding a lumbar puncture or shunt fluid analysis to rule out CSF shunt infection.
--- NOTE | 2016-05-07 18:42 | REPKIM ---
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 ERCP was unsuccessful. The referring service has asked PTC/PTBD/possible biopsy and common bile duct stone removal. PROCEDURE PERFORMED: 1. Ultrasound of the right upper abdomen 2. Percutaneous transhepatic cholangiogram 3. Transbiliary distal common bile duct stricture biopsy 4. Cholangioplasty and common bile duct stone/debri removal 5. Internal-External Biliary Drainage Catheter (Stent) Placement INTERVENTIONALIST: Иван Centeno MD CONSENT: The risks, benefits and alternatives to the procedure were explained to the patients daughter, Ms Nicole Elizabeth, who is the legal guardian and informed consent was obtained and witnessed. MEDICATIONS: Cipro 400mg IV and Local Lidocaine. SEDATION: Sedation and analgesia was provided by the Anesthesiology Dept. CONTRAST: 215 mL Isovue 300 EBL: 20 mL FLUORO TIME: 62.3 minutes DEVICES USED: 8.5F Internal External Biliary Catheter Lot #[id number], Biopsy Forceps PROCEDURE/FINDINGS: PERCUTANEOUS TRANSHEPATIC CHOLANGIOGRAM: The patient was brought to the interventional radiology suite where a timeout procedure was performed. The patient was placed in the supine position and abdomen prepped and draped in a sterile fashion. Ultrasound of the abdomen showed minimally dilated intrahepatic biliary system. Cholangiogram via the existing cholecystostomy tube was also obtained which showed patent cystic duct. Using ultrasound and fluoroscopic guidance, a 21-gauge Accustick needle was advanced into a right biliary ductal branch, after infiltration of the skin and deep tissues with local anesthetic. Contrast was injected and a cholangiogram was performed. This showed intrahepatic biliary system is minimally dilated. The cystic duct is patent. There is narrowing involving the distal common bile duct with small filling defects. There is some antegrade flow of contrast into the small bowel. TRANSBILIARY COMMON BILE DUCT STRICTURE/NARROWING BIOPSY, CHOLANGIOPLATY AND COMMON BILDE DUCT STONE REMOVAL: Using this access, the Accustick catheter was advanced. Then with the aid of a hydrophilic guidewire the catheter-wire combination was advanced across the area of central confluence into the common bile duct. A 6-Italian vascular sheath was then introduced with its tip positioned in the distal common bile duct stricture region. A myocardial biopsy forceps was introduced coaxially through the sheath. Then biopsy of the common bile duct narrowing/stricture region was performed. A total of 7 passes were made. The core specimens were submitted in formalin for pathologic evaluation. The biopsy forceps was removed over the guidewire. A 5-F Kumpe catheter was advanced. Then with the aid of a hydrophilic guidewire, the catheter was advanced into the small bowel across the distal common bile duct narrowing. The wire was exchanged for a stiff wire. A 10-mm diameter angioplasty balloon was coaxially introduced which was then used to dilate the ampulla. Using the ADJUNCT LATIN PROFESSOR balloon, the common bile duct stone/debri were then pushed into the small bowel. Post intervention cholangiogram showed no extravasation of contrast. This also showed some free antegrade flow of contrast into the small bowel. INTERNAL-EXTERNAL BILIARY DRAINAGE CATHETER (STENT) PLACEMENT: Using fluoroscopic guidance, an 8.5-Italian internal/external biliary drainage catheter was introduced after serial dilation of its tract. The distal loop of the biliary catheter was formed and locked in the small bowel. Then contrast was injected to ensure the side holes of the catheter were appropriately positioned. The drainage catheter was then secured to the skin with 2-0 Prolene suture and covered with a sterile dressing. The drainage catheter was flushed and capped to allow internal drainage. The patient tolerated the procedure well with no immediate complications. This procedure was performed using ultrasound and fluoroscopy. Dr. Centeno was present. IMPRESSION: 1. Percutaneous transhepatic cholangiogram demonstrates stricture/narrowing involving the distal common bile duct. The intrahepatic biliary system is minimally dilated and the cystic duct is patent. The existing cholecystostomy tube is patent with its tip in the gallbladder. There is antegrade flow of contrast into the small bowel. 2. Transbiliary common bile duct stricture/narrowing biopsy as discussed above. 3. Cholangioplasty of the ampulla and removal of the common bile duct stone/ debri as discussed above. 4. Successful placement of 8.5F internal-external biliary drainage catheter ( stent) as discussed above. The biliary drainage catheter was flushed and capped to allow internal drainage. In general, the plan is for the patient to return to IR for a follow up over the wire cholangiogram, possible biliary catheter removal/intervention in approximately 4 weeks. This plan depends on bx results. cc: MD Yoseph Hawkins MD Leo J Gosselin Jr, MD MTDD
[2016-05-07] MEDS: amLODIPine 10 MG TAB PO SCH (20:21)
[2016-05-07] MEDS: SERTRALINE HCL 50 MG TAB PO SCH (20:21)
[2016-05-08 02:00] VITALS: BP 130/58
[2016-05-08 06:00] VITALS: BP 140/68
[2016-05-08 07:05] LABS: MEAN CORPUSCULAR HEMOGLOBIN 30.7 pg (27.0-33.0); MEAN CORPUSCULAR VOLUME 93.1 fl (80.0-96.0); RED CELL DISTRIBUTION WIDTH 13.8 % (11.5-14.5); WHITE BLOOD COUNT 24.9 K/mm3 (4.0-10.0)
[2016-05-08 07:25] LABS: ALBUMIN/GLOBULIN RATIO 0.79 (1.00-1.93); ALKALINE PHOSPHATASE 113 U/L (45-117); ALT/SGPT 81 U/L (12-78); AMYLASE 142 U/L (25-115); ANION GAP 9 MEQ/L (8-16); AST/SGOT 71 U/L (15-37); BILIRUBIN,DIRECT 0.2 MG/DL (0.0-0.2); BILIRUBIN,TOTAL 0.6 MG/DL (0.2-1.0); BLOOD UREA NITROGEN 9 MG/DL (7-18); CALCIUM LEVEL 8.8 MG/DL (8.8-10.2); CARBON DIOXIDE LEVEL 26 MEQ/L (21-32); CHLORIDE LEVEL 101 MEQ/L (98-107); CREATININE FOR GFR 0.57 MG/DL (0.55-1.02); GLOMERULAR FILTRATION RATE > 60.0 (>39); GLUCOSE, FASTING 90 MG/DL (83-110); POTASSIUM SERUM 3.9 MEQ/L (3.5-5.1); SODIUM LEVEL 136 MEQ/L (136-145); TOTAL PROTEIN 6.8 GM/DL (6.4-8.2)
[2016-05-08] MEDS: ADVAIR DISKUS 250/50 INH PWD INH SCH ×2 (09:00→20:39)
--- NOTE | 2016-05-08 09:56 | IPNPDOC ---
Date/Time Seen The patient was seen on 05/08/16 at 09:34. Progress Note SUBJECTIVE: Patient is a 70 year old female with hx cholecystitis and a cholecystostomy tube. Patient reports mild discomfort in abdomen. On the right side. Patient reports no nausea or vomiting. No diarrhea. Did have bowel movement, no blood. OBJECTIVE: PHYSICAL EXAMINATION: VITAL SIGNS: Please see below. GENERAL: Comfortable. Sleepy in hospital bed. Cooperative. HEENT: Eyes open spontaneously. CARDIOVASCULAR: Normal s1 and s2, no clicks, rubs, gallops or murmurs. RESPIRATORY: Equal breath sounds bilaterally. ABDOMINAL: soft, nondistended. mild tenderness to palpation right lower quadrant. bowel sounds heard. EXTREMITIES: no lower extremity edema. NEUROLOGICAL: Speech intact. LABORATORY DATA: Please see below. MICROBIOLOGY: Please see below. DVT prophylaxis ordered?: yes ASSESSMENT AND PLAN:Patient is a 70 year old female with hx cholecystitis and a cholecystostomy tube. PROBLEMS: 1. Previous acute cholecytitis treated with cholecystostomy tube. 2. Common bile duct stricture 3. Leukocystosis DISPOSITION: Patient underwent placement of PTC tube yesterday by Dr. Centeno. This is used as stent for common bile duct stricture. Biopsies were taken of the area. Awaiting biopsy results. Based on results removal of the catheter in 2 weeks. Patient reports pain and discomfort right abdomen. Patient's AST increased to 71 and ALT increased to 81 today. Patient's WBC also increased to 24.9 today. Monitor patient's WBC count tomorrow. If patient's count returns to normal cholecystostomy tube may be removed. Continue to have tube placed at this time. Continue to monitor patient as needed. VS, I&O, 24H, Fishbone VS, I&O, 24H, Fishbone Vital Signs Date Time Temp Pulse Resp B/P Pulse Ox O2 Delivery O2 Flow Rate FiO2 05/08/16 06:00 98.3 73 24 140/68 96 Nasal Cannula 3.0 I&O- Last 24 Hours up to 6 AM 05/08/16 06:00 Intake Total 2270 ml Output Total 5 ml Balance 2265 ml Laboratory Tests 2 05/08/16 06:37: Aspartate Amino Transf (AST/SGOT) 71H, Alanine Aminotransferase (ALT/SGPT) 81H, Alkaline Phosphatase 113, Total Bilirubin 0.6, Direct Bilirubin 0.2, Albumin 3.0L, Albumin/Globulin Ratio 0.79L, Amylase Level 142H, Anion Gap 9, Calcium Level 8.8, Glomerular Filtration Rate > 60.0, Lipase 388, Total Protein 6.8 Laboratory Tests 05/08/16 06:37 Red Blood Count 3.91 L, Mean Corpuscular Volume 93.1, Mean Corpuscular Hemoglobin 30.7, Mean Corpuscular Hemoglobin Concent 33.0, Red Cell Distribution Width 13.8 Microbiology 05/01/16 Blood Culture - Final, Complete NO GROWTH AFTER 5 DAYS 05/01/16 Blood Culture - Final, Complete NO GROWTH AFTER 5 DAYS 05/03/16 Fungal Smear, Received Pending 05/03/16 Fungal Culture, Received Pending 05/03/16 Gram Stain - Final, Complete 05/03/16 CSF Culture - Final, Complete Staphylococcus Epidermidis Staphylococcus Epidermidis#2 05/02/16 Respiratory Virus Panel (PCR) ([facility]) - Final, Complete 05/01/16 Urine Culture - Final, Complete 05/03/16 Anaerobic Culture - Final, Complete GME ATTESTATION GME ATTESTATION My preceptor for this patient encounter was Dr. Urbina and he was physically present in the building during the encounter and was fully available. As needed , all aspects of the patient interview, examination, medical decision making process, and medical care plan development were reviewed and approved by the preceptor. Preceptor is aware and concurs with the plan as stated in the body of this note and will attest to such by his/her cosignature. HAFSA WINSTON DO May 08, 2016 09:37
[2016-05-08 10:00] VITALS: BP 151/68
[2016-05-08] MEDS: OMEPRAZOLE 20 MG CAP PO SCH (10:53)
[2016-05-08] MEDS: KCL 20MEQ IN 0.45NS 1000ML 1,000 ML IV SCH ×3 (10:55→23:20)
[2016-05-08] MEDS: traMADol 50 MG TAB PO PRN (10:55)
[2016-05-08 14:00] VITALS: BP 136/66
--- NOTE | 2016-05-08 17:18 | REP ---
MRI BRAIN WITHOUT AND WITH CONTRAST: HISTORY: Shunt infection. CONTRAST: ProHance 11 mL. COMPARISON: MR date 02/09/[address] date 05/04/2016. The examination is limited secondary to motion. Areas of increased signal intensity on T2-weighted images are present in the thalami and left cerebellum. These represent old lacunar infarctions. Areas of increased signal intensity are present in the periventricular and subcortical white matter. This represents small vessel ischemic disease. There is no intraparenchymal hemorrhage, acute infarct, mass or midline shift. There is no abnormal enhancement. There is dilatation of the ventricular system consistent with mild hydrocephalus, unchanged compared to the most recent CT examination. A shunt is present in the anterior horn of the right lateral ventricle. There is no extracerebral collection. Decreased signal intensity on T2 gradient echo images is present in the meninges and occipital horns of lateral ventricles. This represents hemosiderin secondary to remote subarachnoid hemorrhage. The sinuses are clear. IMPRESSION: 1. 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 2. Small vessel ischemic disease. 3. Mild hydrocephalus, unchanged compared to the most recent CT examination. Signed by Fritz Mcclure MD 05/09/2016 08:15 A
--- NOTE | 2016-05-08 17:52 | ECGEPIP ---
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 NO REMARKABLE CHANGES BUT NO PVCs NOTED THIS TIME. Electronically Signed On 05-08-2016 17:52:15 EST by Henry Moore
[2016-05-08 18:00] VITALS: BP 140/64
[2016-05-08] MEDS ORDERED: KCL 20MEQ IN 0.45NS 1000ML 1,000 ML IV SCH (18:15)
--- NOTE | 2016-05-08 18:15 | PHACANCOPD ---
PHARMACY VANCOMYCIN DOSING Pt Demographics Demographics Patient Age:70 , Weight:58.970 , Gender: female Adjusted Body Weight Events Past 24 Hours Events Past 24 Hours: NO: Change in CrCl, Dialysis, Diuretic Therapy, Elevation in WBC, Fever, Other, Pending Diagnostics, Pending Procedures Vancomycin Vancomycin Target Ranges: 15-20 mcg/ml Vancomycin Load Y/N: Yes Load Dose Date Time Vancomycin Load Dose: 1.5GM (25mg/kg) Date: 05/08/16 Time: 19:00 Vancomycin Dose Date: 05/09/16. Current Vancomycin Dose: [1GM IV Q12H (08:00)] Intermittent Dosing?: No Labs Labs Laboratory Tests 05/08/16 06:37 Red Blood Count 3.91 L, Mean Corpuscular Volume 93.1, Mean Corpuscular Hemoglobin 30.7, Mean Corpuscular Hemoglobin Concent 33.0, Red Cell Distribution Width 13.8 Micro 05/03/16 CSF Culture - Final, Complete Staphylococcus Epidermidis Staphylococcus Epidermidis#2 Creatinine Clearance Date:05/08/16. Creatinine Clearance: [<50 ml/min]. Assessment and Plan Maintaining Current Dose?: Yes Reason for dose change: Other Pharmacist Note Pharmacist Note Date: 05/08/16. Pharm.D. note: 70YO FEMALE, 61" in HEIGHT, 58.97KG in WEIGHT, POSSIBLE INFECTED LOGGER ALL ROUND SHUNT, MICRO C&S SHOWING STAPH EPI FROM 05/03/16 CULTURE. SCR 0.57, CRCL <50 ml/min BUT (>45ml/min). SHE IS TO START MEROPENEM 1GM IV Q8H AT 18:00 THIS EVENING AND WE ARE ASKED TO DOSE HER VANCO WITH A GOAL TROUGH 15- 20 mcg/ml. WE WILL GIVE HER A 1500MG VANCO LOAD STARTING AT 19:00 OVER 2 HOURS FOLLOWED BY VANCO 1GM IV Q12H STARTING AT 08:00 05/09/16. A VANCO TR HAS BEEN ORDERED FOR FRIDAY MORNING WITH AM [facility] PRIOR TO HER 8AM DOSE. JAEL., Pharm.D. H[facility]SA LEIVA [facility] May 08, 2016 18:15
[2016-05-08] MEDS: ENOXAPARIN 40 MG/0.4 ML SYRINGE (J1650) SC SCH (18:26)
--- NOTE | 2016-05-08 18:26 | REP ---
Shunt series: Two views: History: Pre MRI shunt valve view. Comparison is made with 05/02/2016 prior films. Findings: Two lateral views obtained with the beam at 90 degrees of the valve as requested. A ventriculoperitoneal shunt tube is seen without evidence of disruption. There are metallic embolization coils at the skull base. Signed by Jayden Valenzuela MD 05/08/2016 06:43 P
--- NOTE | 2016-05-08 18:27 | REP ---
Shunt series: Single view. History: Post MRI shunt valve position check. Findings: An orthogonal lateral view of the skull demonstrates the ventriculoperitoneal shunt apparatus. Embolization coil material is seen at the skull base. Signed by Jayden Valenzuela MD 05/08/2016 06:43 P
[2016-05-08] MEDS: MEROPENEM INJ 1 GM in D5W MINI-BAG PLUS 100 ML IV SCH (18:36)
[2016-05-08] MEDS ORDERED: VANCOMYCIN HCL 1,000 MG, VIAL MATE ADAPTER 1 EACH in D5W 250 ML IV ONE (19:00)
--- NOTE | 2016-05-08 19:14 | REP ---
Portable chest x-ray: Sitting AP view: History: Possible ventriculitis. Shunt tubing. Findings: The lungs are symmetrically aerated and clear. Right hemidiaphragm is slightly elevated unchanged. A right-sided ventriculoperitoneal shunt catheter is noted in place coiled in the right upper quadrant. A biliary catheter and stent is seen in the right upper quadrant of the abdomen. No infiltrate is seen in the lung ulrich. Impression: No active cardiopulmonary disease. Signed by Jayden Valenzuela MD 05/08/2016 07:49 P
[2016-05-08 19:16] LABS: AMYLASE 89 U/L (25-115)
[2016-05-08] MEDS ORDERED: VANCOMYCIN HCL 500 MG in D5W MINI-BAG PLUS 100 ML IV ONE (20:00)
[2016-05-08] MEDS: SERTRALINE HCL 50 MG TAB PO SCH (20:12)
[2016-05-08] MEDS: amLODIPine 10 MG TAB PO SCH (20:13)
[2016-05-08 22:00] VITALS: BP 148/70
--- NOTE | 2016-05-08 23:04 | IPNPDOC ---
Assessment/Plan Date Seen The patient was seen on 05/08/16. Problems Problems: (1) Fever of unknown origin Status: Resolved Problem Specific Plan: Consult Specialist Problem Text: 05/08 -- after discussion with ID, started vancomycin and meropenem; blood cultures ordered; gallbladder vs HEEL COMPRESSOR shunt as most likely sources s leukocytosis, but 05/06/15 Tm 101.7 and lethargic 05/05/16 CRP 0.7, ESR 35 05/03/16 HEEL COMPRESSOR shunt CX 2 S. epidermiditis species-few and moderate-MRI brain pending 05/02/16 - PCR resp panel 05/01/16 BCX x 2/UCX NG (2) Common bile duct (CBD) obstruction Status: Acute Problem Text: 05/08 Dr. Kumari feels her current symptoms may be attributable to recent instrumentation of CBD or perhaps infection there; abx (discussed with Dr. Lao) to cover for intraabdominal infection AND have good penetration into CSF. My exam does not favor an intraabdominal source of infection, though patient was somewhat altered. 05/07/16 percutaneous cholangiogram c CBD to SB drainage and biopsy by Dr. Centeno 05/06/16 ERCP unable to perform cholangiogram-Chantal to ask IR for CBD stent placement Narrowing of CBD on cholangiogram. Cholecystostomy tube clamped. . (3) Metabolic encephalopathy Status: Acute Problem Specific Plan: Consult Specialist Problem Text: 05/02/16 intact HEEL COMPRESSOR shunt per shunt series and per Kenyetta 05/05/2016: planned ERCP with hopeful removal of cholecystostomy tube in near future. Drs. Urbina and Chantal on board. 05/06/16: CSF cultures positive for staph epidermidis; Dr. Kumari has ordered and MRI with and without contrast to assess for ventriculitis however this cannot be done until the composition of her shunt is determined to ensure that she can safely get an MRI; Dr. Kumari states that if she has a CSF infection, the shunt will need to be removed. Dr. Lao was notified of culture results and will see the patient today. ERCP is planned for later today and is pending. 05/08: currently unclear if shunt or recent gallbladder drainage is source of infection and encephalopathy, antibiotics selected for coverage of both. (4) Nonfunctioning ventriculoperitoneal shunt Status: Acute Problem Specific Plan: Consult Specialist Problem Text: Neurosurgery: Dr. Kumari consulted. requested Ct abd completed to eval for fluid collection around shunt. ordered. 05/04/2016: improved function per neurosurgery note. 05/06/16: MRI of brain with and without contrast is pending 05/08: shunt remains in place; neurosurgery suggests shunt likely colonized, and hopes to treat with abx; prefers LP and culture to directly culturing from shunt (5) COPD (chronic obstructive pulmonary disease) Status: Chronic Response to Treatment: Stable Problem Specific Plan: Monitor Clinically Problem Text: Nursing felt perhaps lung sounds more diminished, CXR ordered (6) Hypertension Status: Chronic Response to Treatment: Stable Problem Specific Plan: Monitor Clinically (7) Cerebral aneurysm Status: Chronic Problem Specific Plan: Monitor Clinically (8) Depression Status: Chronic Response to Treatment: Stable Problem Specific Plan: Monitor Clinically Plan / VTE VTE Prophylaxis Ordered?: Yes (Lovenox) Plan Therapy: PT, OT Subjective Review of Systems CC/HPI The patient is a 70-year-old female admitted with a reason for visit of Metabolic Encephalopathy. Events since last encounter Patient moderately confused, has trouble answering questions; sleepy, easily roused with voice or touch, but does not pay attention long and answers few questions. She does not answer when I ask her where she is, what year it is, what kind of building she is in (library? bank? house?) She does deny abdominal pain or chest pain before losing interest in answering questions. Patient discussed with Dr. Kumari and Dr. Lao. General: Reports: ROS Unobtainable Objective Physical Examination General Exam: Positive: Alert, No Acute Distress Eye Exam: Positive: Conjunctiva & lids normal, EOMI, PERRLA, Negative: Sclera icteric ENT Exam: Positive: Atraumatic, Mucous membr. moist/pink, Pharynx Normal Neck Exam: Positive: Supple, Negative: JVD, thyromegaly Chest Exam: Positive: Clear to auscultation, Diminished Heart Exam: Positive: Normal S1, Normal S2, Rate Normal, Regular Rhythm, Negative: Murmurs, Rubs Abdomen Exam: Positive: Normal bowel sounds, Soft, Negative: Hepatospenomegaly, Tenderness Extremity Exam: Positive: Normal pulses, Negative: Clubbing, Cyanosis, Edema Skin Exam: Positive: Nl turgor and temperature, Negative: Breakdown Neuro Exam: Positive: Other (vague in response. ) Psych Exam: Positive: Other (sleepy, confused) Vital Signs/I&O Vital Signs Date Time Temp Pulse Resp B/P Pulse Ox O2 Delivery O2 Flow Rate FiO2 05/08/16 22:15 Room Air 05/08/16 22:00 99.8 92 17 148/70 92 05/08/16 14:00 3.0 I&O- Last 24 Hours up to 6 AM 05/08/16 06:00 Intake Total 2270 ml Output Total 5 ml Balance 2265 ml Laboratory Data Labs 24H Laboratory Tests 2 05/08/16 06:37: Aspartate Amino Transf (AST/SGOT) 71H, Alanine Aminotransferase (ALT/SGPT) 81H, Alkaline Phosphatase 113, Total Bilirubin 0.6, Direct Bilirubin 0.2, Albumin 3.0L, Albumin/Globulin Ratio 0.79L, Amylase Level 142H, Anion Gap 9, Calcium Level 8.8, Glomerular Filtration Rate > 60.0, Lipase 388, Total Protein 6.8 05/08/16 18:12: Amylase Level 89, Lipase 205 CBC/BMP Laboratory Tests 05/08/16 06:37 Red Blood Count 3.91 L, Mean Corpuscular Volume 93.1, Mean Corpuscular Hemoglobin 30.7, Mean Corpuscular Hemoglobin Concent 33.0, Red Cell Distribution Width 13.8 Microbiology Microbiology 05/08/16 Blood Culture, Received Pending 05/08/16 Blood Culture, Received Pending 05/01/16 Blood Culture - Final, Complete NO GROWTH AFTER 5 DAYS 05/01/16 Blood Culture - Final, Complete NO GROWTH AFTER 5 DAYS 05/03/16 Fungal Smear, Received Pending 05/03/16 Fungal Culture, Received Pending 05/03/16 Gram Stain - Final, Complete 05/03/16 CSF Culture - Final, Complete Staphylococcus Epidermidis Staphylococcus Epidermidis#2 05/02/16 Respiratory Virus Panel (PCR) ([facility]) - Final, Complete 05/01/16 Urine Culture - Final, Complete 05/03/16 Anaerobic Culture - Final, Complete HOWARD BENSON DO May 08, 2016 23:04
[2016-05-09] MEDS: MEROPENEM INJ 1 GM in D5W MINI-BAG PLUS 100 ML IV SCH ×3 (02:17→17:49)
[2016-05-09 06:00] VITALS: BP 148/74
[2016-05-09 06:13] LABS: MEAN CORPUSCULAR HEMOGLOBIN 30.6 pg (27.0-33.0); MEAN CORPUSCULAR HGB CONC 32.7 g/dl (32.0-36.5); MEAN CORPUSCULAR VOLUME 93.7 fl (80.0-96.0); RED CELL DISTRIBUTION WIDTH 14.8 % (11.5-14.5)
[2016-05-09 06:21] LABS: ANION GAP 12 MEQ/L (8-16); BLOOD UREA NITROGEN 6 MG/DL (7-18); CALCIUM LEVEL 9.3 MG/DL (8.8-10.2); CARBON DIOXIDE LEVEL 23 MEQ/L (21-32); CHLORIDE LEVEL 97 MEQ/L (98-107); GLOMERULAR FILTRATION RATE > 60.0 (>39); GLUCOSE, FASTING 92 MG/DL (83-110); POTASSIUM SERUM 3.3 MEQ/L (3.5-5.1); SODIUM LEVEL 132 MEQ/L (136-145)
[2016-05-09] MEDS: ADVAIR DISKUS 250/50 INH PWD INH SCH ×2 (08:05→20:09)
[2016-05-09] MEDS: KCL 20MEQ IN 0.45NS 1000ML 1,000 ML IV SCH ×2 (08:11→20:32)
[2016-05-09] MEDS: VANCOMYCIN HCL 1,000 MG, VIAL MATE ADAPTER 1 EACH in D5W 250 ML IV SCH ×2 (08:11→20:32)
[2016-05-09] MEDS: ENOXAPARIN 40 MG/0.4 ML SYRINGE (J1650) SC SCH (08:11)
--- NOTE | 2016-05-09 10:42 | IPNPDOC ---
Assessment/Plan Date Seen Date Seen The patient was seen on 05/09/16. Problems: (1) Fever of unknown origin Status: Resolved (2) Common bile duct (CBD) obstruction Status: Acute (3) Metabolic encephalopathy Status: Acute (4) Nonfunctioning ventriculoperitoneal shunt Status: Acute (5) COPD (chronic obstructive pulmonary disease) Status: Chronic (6) Hypertension Status: Chronic (7) Cerebral aneurysm Status: Chronic (8) Depression Status: Chronic Plan / VTE VTE Prophylaxis Ordered?: Yes (Lovenox) Plan Plan Text WBC count decreased to 18.0 from 24.9 05/08. Continue to monitor patient WBC with repeat tomorrow. Monitor patient. Plan is once WBC returns to normal to remove cholecystostomy tube. Subjective CC/HPI The patient is a 70-year-old female admitted with a reason for visit of Metabolic Encephalopathy. Events since last encounter Patient is lethargic on exam today. Patient reports reports epigastric tenderness and nausea. No vomiting. Patient feels tired. General: Denies: Chills, Night Sweats Constitutional: Denies: Fever Eyes: Denies: Pain ENT: Denies: Head Aches Skin: Denies: Lesions, Rash Pulmonary: Denies: Cough, Dyspnea Cardiovascular: Denies: Chest Pain, Palpitations Gastrointestinal: Reports: Abdominal Pain (Epigastric tenderness), Nausea, Denies: Vomiting Genitourinary: Denies: Dysuria, Frequency Hematologic: Denies: Bruising Objective General Exam: : Cooperative: No Acute Distress: Other (Lethargic) Chest Exam: : Clear to auscultationNo: Rhonchi, Wheezing Heart Exam: : Normal S1: Normal S2: Rate NormalNo: Murmurs, Rubs ABDOMEN EXAM: : Normal bowel sounds: Soft: Tenderness (epigastric)No: Hepatospenomegaly, Mass Skin Exam: No: Rash VS/I&O Vital Sign - Last 24 Hours 05/08/16 05/08/16 05/08/16 05/08/16 10:55 11:00 11:00 11:25 Resp 20 20 20 O2 Delivery Nasal Cannula O2 Flow Rate 3.0 05/08/16 05/08/16 05/08/16 05/08/16 14:00 17:09 18:00 20:13 Temp 97.8 98.0 Pulse 77 82 92 Resp 18 18 B/P 136/66 140/64 148/70 Pulse Ox 99 95 95 O2 Delivery Nasal Cannula Room Air Room Air O2 Flow Rate 3.0 05/08/16 05/08/16 05/09/16 05/09/16 22:00 22:15 06:00 09:42 Temp 99.8 98.8 Pulse 92 89 Resp 17 22 B/P 148/70 148/74 Pulse Ox 92 92 O2 Delivery Room Air Room Air Room Air Room Air I&O- Last 24 Hours up to 6 AM 05/09/16 06:00 Intake Total 1500 ml Output Total 0 ml Balance 1500 ml Labs 24H Laboratory Tests 2 05/08/16 18:12: Amylase Level 89, Lipase 205 05/09/16 05:42: Anion Gap 12, Blood Urea Nitrogen 6L, Creatinine 0.40L, Sodium Level 132L, Potassium Level 3.3L, Chloride Level 97L, Carbon Dioxide Level 23, Calcium Level 9.3, Glomerular Filtration Rate > 60.0 CBC/BMP Laboratory Tests 05/09/16 05:42 Calcium Level 9.3, Red Blood Count 4.12, Mean Corpuscular Volume 93.7, Mean Corpuscular Hemoglobin 30.6, Mean Corpuscular Hemoglobin Concent 32.7, Red Cell Distribution Width 14.8 H Medications Current Medications Acetaminophen (Tylenol) 650 mg Q4HP PRN PO MILD PAIN OR FEVER Last administered on 05/07/16 01:09; Start 05/02/16 at 06:00; Stop 06/05/16 at 05:59 Albuterol Sulfate 2.5 mg 2.5 mg Q2HP PRN INH SOB/WHEEZING; Start 05/02/16 at 06 :00; Stop 06/05/16 at 05:59 Amlodipine Besylate (Norvasc) 10 mg QHS PO Last administered on 05/08/16 20:13 ; Start 05/02/16 at 21:00; Stop 06/05/16 at 20:59 Enoxaparin Sodium (Lovenox) 40 mg DAILY SC Last administered on 05/05/16 08:14 ; Start 05/02/16 at 09:00; Stop 05/11/16 at 08:59 Fentanyl Citrate (Sublimaze) 25 mcg Q5MP PRN IV PAIN; Start 05/06/16 at 20:30; Stop 05/06/16 at 21:30; Status DC Fentanyl Citrate (Sublimaze) 25 mcg Q5MP PRN IV PAIN; Start 05/07/16 at 16:00; Stop 05/07/16 at 17:00; Status DC Gentamicin Sulfate 80 mg/IV Miscellaneous Supplies 100 ml @ 200 mls/hr ASDIRECTED IV Last administered on 05/06/16 16:20; Start 05/06/16 at 06:00; Stop 05/06/16 at 21:05; Status DC Home Med (Med Rec Complete!) ASDIRECTED XX ; Start 05/02/16 at 04:30; Stop at 07:09; Status DC Lactated Ringer's (Lactated Ringer'S) 1,000 ml @ 75 mls/hr [id number] IV ; Start 05/07/16 at 16:00; Stop 05/07/16 at 17:00; Status DC Lactated Ringer's (Lactated Ringer'S) 1,000 ml @ 100 mls/hr Q10H IV ; Start at 20:30; Stop 05/06/16 at 21:30; Status DC Meropenem 1 gm/ Dextrose 100 ml @ 200 mls/hr Q8H IV Last administered on 02:17; Start 05/08/16 at 18:00; Stop 05/15/16 at 17:59 Metoclopramide HCl 10 mg 10 mg Q6HP PRN IV NAUSEA OR VOMITING; Start 05/06/16 at 20:30; Stop 05/06/16 at 21:30; Status DC Metoclopramide HCl 10 mg 10 mg Q6HP PRN IV NAUSEA OR VOMITING; Start 05/07/16 at 16:00; Stop 05/07/16 at 17:00; Status DC Omeprazole (PriLOSEC) 20 mg DAILY PO Last administered on 05/08/16 10:53; Start 05/02/16 at 09:00; Stop 06/05/16 at 08:59 Ondansetron HCl (Zofran) 4 mg Q4HP PRN IV NAUSEA OR VOMITING; Start 05/06/16 at 20:30; Stop 05/06/16 at 21:30; Status DC Ondansetron HCl (Zofran) 4 mg Q4HP PRN IV NAUSEA OR VOMITING; Start 05/07/16 at 16:00; Stop 05/07/16 at 17:00; Status DC Ondansetron HCl (Zofran) 4 mg Q6HP PRN IV NAUSEA OR VOMITING Last administered on 05/07/16 15:25; Start 05/02/16 at 06:00; Stop 06/05/16 at 05:59 Oxycodone/ Acetaminophen (Percocet 5mg/ 325mg Tablet) 1 tab ASDIRECTED PRN PO PAIN; Start 05/07/16 at 16:00; Stop 05/07/16 at 17:00; Status DC Potassium Chloride/Sodium Chloride 1,000 ml @ 125 mls/hr Q8H IV Last administered on 05/09/16 08:11; Start 05/06/16 at 15:30; Stop 06/05/16 at 15:29 Potassium Chloride/Sodium Chloride 1,000 ml @ 125 mls/hr Q8H IV ; Start at 18:15; Stop 06/07/16 at 18:14; Status Cancel Salmeterol Xinafoate/ Fluticasone (Advair Diskus 250/50) 1 puff BID INH Last administered on 05/09/16 08:05; Start 05/02/16 at 09:00; Stop 06/05/16 at 08:59 Senna/Docusate Sodium (Senokot S) 1 tab QHS PRN PO CONSTIPATION; Start at 06:00; Stop 06/05/16 at 05:59 Sertraline HCl (Zoloft) 50 mg QHS PO Last administered on 05/08/16 20:12; Start 05/02/16 at 21:00; Stop 06/05/16 at 20:59 Tramadol HCl (Ultram) 50 mg Q6H PRN PO PAIN Last administered on 05/08/16 10: 55; Start 05/02/16 at 06:00; Stop 05/13/16 at 05:59 Vancomycin HCl 1000 mg/IV Miscellaneous Supplies 1 each/ Dextrose 270 ml @ 270 mls/hr ASDIRECTED IV ; Start 05/06/16 at 06:00; Stop 05/06/16 at 21:05; Status DC Vancomycin HCl/IV Miscellaneous Supplies/Dextrose (Vancomycin HCl/ Adapter-Vial Mate/ Dextrose 5%) 270 ml @ 270 mls/hr Q12H IV Last administered on 05/09/16t 08:11; Start 05/09/16 at 08:00; Stop 05/16/16 at 07:59 Allergies: Coded Allergies: Codeine (Unverified Allergy, Intermediate, hives, 02/28/16) Sulfa Drugs (Verified Allergy, Intermediate, SWELLING, 02/28/16) Clavulanic Acid (Unverified Adverse Reaction, Mild, GI ISSUES w/ AUGMENTIN , 02/28/16) PATIENT DENIED ANY SOB OR HIVES Penicillins (Unverified Adverse Reaction, Mild, GI ISSUES w/ AUGMENTIN, ) PATIENT DENIED SOB OR HX OF HIVES PER DR Amparo MONTENEGRO 02/28/16 GME ATTESTATION GME ATTESTATION My preceptor for this patient encounter was Dr. Urbina and he was physically present in the building during the encounter and was fully available. As needed , all aspects of the patient interview, examination, medical decision making process, and medical care plan development were reviewed and approved by the preceptor. Preceptor is aware and concurs with the plan as stated in the body of this note and will attest to such by his/her cosignature. HAFSA WINSTON DO May 09, 2016 10:42
[2016-05-09 12:50] VITALS: BP 142/67
--- NOTE | 2016-05-09 12:53 | IPNPDOC ---
Assessment/Plan Date Seen The patient was seen on 05/09/16. Problems Problems: (1) Fever of unknown origin Status: Resolved Problem Specific Plan: Consult Specialist Problem Text: D4 vanco/D2 imipenem 05/09 WBC down to 18 (05/08 25K!), unable to obtain LP due to patient discomfort; therefore, Kenyetta to repeat shunt tap 05/08 after discussion with ID, started vancomycin and meropenem; blood cultures ordered; gallbladder vs PARK KEEPER shunt as most likely sources 05/07 leukocytosis, but 05/06/15 Tm 101.7 and lethargic 05/05/16 CRP 0.7, ESR 35 05/08/16 BCX x 2 NG 05/03/16 PARK KEEPER shunt CX 2 S. epidermiditis species-few and moderate-MRI brain pending 05/02/16 - PCR resp panel 05/01/16 BCX x 2/UCX NG (2) Common bile duct (CBD) obstruction Status: Acute Problem Text: 05/08 Dr. Kumari feels her current symptoms may be attributable to recent instrumentation of CBD or perhaps infection there; abx (discussed with Dr. Lao) to cover for intraabdominal infection AND have good penetration into CSF. My exam does not favor an intraabdominal source of infection, though patient was somewhat altered. 05/07/16 percutaneous cholangiogram c CBD to SB drainage and biopsy by Dr. Centeno 05/06/16 ERCP unable to perform cholangiogram-Chantal to ask IR for CBD stent placement Narrowing of CBD on cholangiogram. Cholecystostomy tube clamped. . (3) Metabolic encephalopathy Status: Acute Problem Specific Plan: Consult Specialist Problem Text: 05/02/16 intact PARK KEEPER shunt per shunt series and per Kenyetta 05/05/2016: planned ERCP with hopeful removal of cholecystostomy tube in near future. Drs. Urbina and Chantal on board. 05/06/16: CSF cultures positive for staph epidermidis; Dr. Kumari has ordered and MRI with and without contrast to assess for ventriculitis however this cannot be done until the composition of her shunt is determined to ensure that she can safely get an MRI; Dr. Kumari states that if she has a CSF infection, the shunt will need to be removed. Dr. Lao was notified of culture results and will see the patient today. ERCP is planned for later today and is pending. 05/08: currently unclear if shunt or recent gallbladder drainage is source of infection and encephalopathy, antibiotics selected for coverage of both. (4) Nonfunctioning ventriculoperitoneal shunt Status: Acute Problem Specific Plan: Consult Specialist Problem Text: 05/04/2016: improved function per neurosurgery note. 05/06/16 MRI brain s/c mild hydro s change, no obvious infection (meningitis, shuntitis) 05/08 normal shunt study, neurosurgery suggests shunt likely colonized, and hopes to treat with abx; prefers LP and culture to directly culturing from shunt (5) COPD (chronic obstructive pulmonary disease) Status: Chronic Response to Treatment: Stable Problem Specific Plan: Monitor Clinically Problem Text: Nursing felt perhaps lung sounds more diminished, CXR ordered (6) Hypertension Status: Chronic Response to Treatment: Stable Problem Specific Plan: Monitor Clinically (7) Cerebral aneurysm Status: Chronic Problem Specific Plan: Monitor Clinically (8) Depression Status: Chronic Response to Treatment: Stable Problem Specific Plan: Monitor Clinically Plan / VTE VTE Prophylaxis Ordered?: Yes (Lovenox) Plan Therapy: PT, OT Subjective Review of Systems CC/HPI The patient is a 70-year-old female admitted with a reason for visit of Metabolic Encephalopathy. Constitutional: Denies: Chills, Fever Eyes: Denies: Pain ENT: Denies: Head Aches Cardiovascular: Denies: Chest Pain, Palpitations Gastrointestinal: Denies: Nausea Genitourinary: Denies: Dysuria Objective Physical Examination General Exam: Positive: Alert, No Acute Distress Eye Exam: Positive: Conjunctiva & lids normal, EOMI, PERRLA, Negative: Sclera icteric ENT Exam: Positive: Atraumatic, Mucous membr. moist/pink, Pharynx Normal Neck Exam: Positive: Supple, Negative: JVD, thyromegaly Chest Exam: Positive: Clear to auscultation, Diminished Heart Exam: Positive: Normal S1, Normal S2, Rate Normal, Regular Rhythm, Negative: Murmurs, Rubs Abdomen Exam: Positive: Normal bowel sounds, Soft, Negative: Hepatospenomegaly, Tenderness Extremity Exam: Positive: Normal pulses, Negative: Clubbing, Cyanosis, Edema Skin Exam: Positive: Nl turgor and temperature, Negative: Breakdown Neuro Exam: Positive: Other (vague in response. ) Psych Exam: Positive: Other (sleepy, confused) Vital Signs/I&O Vital Signs Date Time Temp Pulse Resp B/P Pulse Ox O2 Delivery O2 Flow Rate FiO2 05/09/16 09:42 Room Air 05/09/16 06:00 98.8 89 22 148/74 92 05/08/16 14:00 3.0 I&O- Last 24 Hours up to 6 AM 05/09/16 06:00 Intake Total 1500 ml Output Total 0 ml Balance 1500 ml Laboratory Data Labs 24H Laboratory Tests 2 05/08/16 18:12: Amylase Level 89, Lipase 205 05/09/16 05:42: Anion Gap 12, Blood Urea Nitrogen 6L, Creatinine 0.40L, Sodium Level 132L, Potassium Level 3.3L, Chloride Level 97L, Carbon Dioxide Level 23, Calcium Level 9.3, Glomerular Filtration Rate > 60.0 CBC/BMP Laboratory Tests 05/09/16 05:42 Calcium Level 9.3, Red Blood Count 4.12, Mean Corpuscular Volume 93.7, Mean Corpuscular Hemoglobin 30.6, Mean Corpuscular Hemoglobin Concent 32.7, Red Cell Distribution Width 14.8 H Microbiology Microbiology 05/08/16 Blood Culture, Received Pending 05/08/16 Blood Culture, Received Pending 05/01/16 Blood Culture - Final, Complete NO GROWTH AFTER 5 DAYS 05/01/16 Blood Culture - Final, Complete NO GROWTH AFTER 5 DAYS 05/03/16 Fungal Smear, Received Pending 05/03/16 Fungal Culture, Received Pending 05/03/16 Gram Stain - Final, Complete 05/03/16 CSF Culture - Final, Complete Staphylococcus Epidermidis Staphylococcus Epidermidis#2 05/02/16 Respiratory Virus Panel (PCR) ([facility]) - Final, Complete 05/01/16 Urine Culture - Final, Complete 05/03/16 Anaerobic Culture - Final, Complete Yoseph Medina M.D. May 09, 2016 12:53
[2016-05-09 13:50] VITALS: BP 143/93
[2016-05-09 14:09] LABS: GLUCOSE CSF 59 MG/DL (40-75)
[2016-05-09 14:16] LABS: RBC CSF AUTO 94 /mm3 (0-0); WBC CSF AUTO 17 /mm3 (0-10)
[2016-05-09 14:22] LABS: APPEARANCE, CSF CLEAR (CLEAR); COLOR, CSF COLORLESS (COLORLESS); CSF TUBE# CELL CNT TUBE 3
[2016-05-09 14:23] LABS: CSF DIFF IF INDICATED? YES (NO); CSF DILUENT LOT # 6053
[2016-05-09] MEDS: OMEPRAZOLE 20 MG CAP PO SCH (14:52)
[2016-05-09] MEDS: traMADol 50 MG TAB PO PRN (14:53)
--- NOTE | 2016-05-09 16:53 | REP ---
FLUOROSCOPIC GUIDANCE FOR LUMBAR PUNCTURE: The procedure was performed under the direct supervision of Dr. Mcclure. The risks and benefits of the procedure were explained and informed consent was obtained by the health care proxy. The L3-4 interspace was localized using fluoroscopic guidance. The skin was prepped and draped in a sterile fashion. 1% lidocaine was used as a local anesthetic. Using fluoroscopic guidance an attempt was made to advance the needle into the thecal sac, however , the patient was very uncomfortable on the table and was unable to hold still. Multiple attempts were tried and lumbar puncture was unsuccessful. 26 seconds of fluoroscopic time was utilized for this procedure. Reviewed by ZAKI Solitario 05/10/2016 10:06 AEdited and Signed by Fritz Mcclure MD 05/10/2016 11:41 A
--- NOTE | 2016-05-09 17:26 | IPN ---
DATE: 05/09/2016 Mrs. Murcia was seen this afternoon. She is sitting up in her bed trying to eat her dinner although she states she has no appetite. Her abdominal pain has improved. She denies any headache. She has had no nausea, vomiting or diarrhea. Dr. Kumari tapped her shunt again this afternoon since he did not have a cell count on the initial cerebrospinal fluid (CSF) study. Lumbar puncture could not be performed as she was agitated. Yesterday her white count was 24.9 today 18, hemoglobin 12.6, hematocrit 38.6, platelets 242. Sed rate is 35. Sodium 132, potassium 3.3, chloride 97, bicarb 23, BUN 6, creatinine 0.4, glucose 92, calcium 9.3, CRP 13. CSF showed 17 white cells 94 red cells, 22% neutrophils, 55% lymphocytes, 23% monocytes. Glucose was 59, total protein was 22.2. Gram stain unfortunately was positive with gram positive cocci in pairs and clusters few no cells are seen. Culture from 05/03 was staph epidermidis, two different colonies but that specimen did not have a cell count with it. OBJECTIVE: VITAL SIGNS: On physical exam she is afebrile. Temperature is 98.9. Temperature (T-max) is 99.8, pulse 89, respirations 20, blood pressure 143/93, oxygen saturation 95% on room air. HEART: Normal S1, S2. No murmurs. ABDOMEN: Soft, nontender. She has a drain on the right upper quadrant but it was clamped. EXTREMITIES: No clubbing, cyanosis or edema. HEAD: Supple. No stiffness. There is the FRUIT TRIMMER shunt on the right side which was recently tapped today. IMPRESSION: 1. FRUIT TRIMMER shunt malfunction and possibility of infection. Although her CSF count has very few white cells and comparatively few neutrophils only 22%, but the gram stain is positive which is very concerning. Treatment of FRUIT TRIMMER shunt infection need exteriorization of the shunt and an exchange after antibiotics. She has been on IV vancomycin and meropenem since the . The shunt has been placed by Iman and Dr. Medina will be discussing transfer to [facility] to exteriorize the shunt and later removal and placing a new one. 2. Cholecystitis. Status post status post PTT tube by Dr. Centeno yesterday which is a stent for common bile duct discharge. The patient had an elevation in her white count and liver function test (LFTs) postoperatively but does not have any evidence of pancreatitis. Her AST and ALT did increase to 71 and 81. Will continue to monitor abdominal pain. Seems to be well controlled. PLAN: Consider transfer to [facility] for shunt exteriorization. Continue intravenous (IV) vancomycin and meropenem until results of cultures are available from today. Case discussed with Dr. Medina and Dr. Kumari.
[2016-05-09] MEDS: SERTRALINE HCL 50 MG TAB PO SCH (20:32)
[2016-05-09] MEDS: amLODIPine 10 MG TAB PO SCH (20:32)
[2016-05-09 22:00] VITALS: BP 151/72
[2016-05-10] MEDS: MEROPENEM INJ 1 GM in D5W MINI-BAG PLUS 100 ML IV SCH ×3 (01:28→20:27)
[2016-05-10 06:00] VITALS: BP 142/74
[2016-05-10] MEDS: KCL 20MEQ IN 0.45NS 1000ML 1,000 ML IV SCH ×2 (06:47→08:51)
[2016-05-10 06:54] LABS: ALBUMIN 2.8 GM/DL (3.2-5.2); ALBUMIN/GLOBULIN RATIO 0.72 (1.00-1.93); ALKALINE PHOSPHATASE 107 U/L (45-117); ALT/SGPT 38 U/L (12-78); ANION GAP 10 MEQ/L (8-16); AST/SGOT 15 U/L (15-37); BILIRUBIN,TOTAL 0.3 MG/DL (0.2-1.0); BLOOD UREA NITROGEN 5 MG/DL (7-18); CALCIUM LEVEL 8.9 MG/DL (8.8-10.2); CARBON DIOXIDE LEVEL 24 MEQ/L (21-32); CHLORIDE LEVEL 99 MEQ/L (98-107); CREATININE FOR GFR 0.35 MG/DL (0.55-1.02); GLOMERULAR FILTRATION RATE > 60.0 (>39); GLUCOSE, FASTING 104 MG/DL (83-110); POTASSIUM SERUM 3.4 MEQ/L (3.5-5.1); SODIUM LEVEL 133 MEQ/L (136-145); TOTAL PROTEIN 6.7 GM/DL (6.4-8.2)
[2016-05-10] MEDS: ADVAIR DISKUS 250/50 INH PWD INH SCH ×2 (08:21→21:00)
[2016-05-10] MEDS: OMEPRAZOLE 20 MG CAP PO SCH (08:51)
[2016-05-10] MEDS: VANCOMYCIN HCL 1,000 MG, VIAL MATE ADAPTER 1 EACH in D5W 250 ML IV SCH ×2 (08:51→20:55)
[2016-05-10 09:00] LABS: MEAN CORPUSCULAR HEMOGLOBIN 30.6 pg (27.0-33.0); WHITE BLOOD COUNT 13.9 K/mm3 (4.0-10.0)
[2016-05-10] MEDS: ENOXAPARIN 40 MG/0.4 ML SYRINGE (J1650) SC SCH (09:00)
[2016-05-10 09:01] LABS: MEAN CORPUSCULAR HGB CONC 33.3 g/dl (32.0-36.5); RED CELL DISTRIBUTION WIDTH 13.7 % (11.5-14.5)
--- NOTE | 2016-05-10 09:46 | IPNPDOC ---
Assessment/Plan Date Seen Date Seen The patient was seen on 05/10/16. Problems: (1) Fever of unknown origin Status: Resolved (2) Common bile duct (CBD) obstruction Status: Acute General Surgery Problem Txt: Being managed by PTC tube relieving obstruction. (3) Metabolic encephalopathy Status: Acute (4) Nonfunctioning ventriculoperitoneal shunt Status: Acute (5) COPD (chronic obstructive pulmonary disease) Status: Chronic (6) Hypertension Status: Chronic (7) Cerebral aneurysm Status: Chronic (8) Depression Status: Chronic Plan / VTE VTE Prophylaxis Ordered?: Yes (Lovenox) Plan Plan Text Patient is currently not experiencing any symptoms of cholecystitis. Common bile distal obstruction is managed by PTC tube by Dr. Centeno currently reliving obstruction. Plan is to monitor patient's WBC count. WBC count today 05/10/16 is 13.9, this is decreased from 18.0. As long as her WBC count decreases over the next couple days and it returns to normal, may remove cholecystostomy tube on Friday. Patient currently does not require tube since distal common bile obstruction has been relieved. Pathology for obstruction returned as negative for carcinoma. Subjective CC/HPI The patient is a 70-year-old female admitted with a reason for visit of Metabolic Encephalopathy. Events since last encounter Today patient report no abdominal pain and nausea. No fevers. Patient is not as lethargic as previous. General: Denies: Chills, Fatigue, Night Sweats Constitutional: Denies: Fever, Malaise Eyes: Denies: Pain, Vision change ENT: Reports: Head Aches (mild frontal headache) Skin: Denies: Lesions, Rash Pulmonary: Denies: Cough, Dyspnea Cardiovascular: Denies: Chest Pain, Palpitations Gastrointestinal: Denies: Abdominal Pain, Nausea, Vomiting Genitourinary: Denies: Dysuria, Frequency Hematologic: Denies: Bleeding Excessively, Bruising Objective General Exam: : Cooperative: No Acute Distress Chest Exam: : Clear to auscultationNo: Rhonchi, Wheezing Heart Exam: : Normal S1: Normal S2: Rate NormalNo: Murmurs, Rubs ABDOMEN EXAM: : Normal bowel sounds: Soft: Tenderness (epigastric)No: Hepatospenomegaly, Mass Skin Exam: No: Rash VS/I&O Vital Sign - Last 24 Hours 05/09/16 05/09/16 05/09/16 05/09/16 09:42 12:50 13:50 14:53 Temp 98.5 98.9 Pulse 88 89 Resp 20 20 16 B/P 142/67 143/93 Pulse Ox 93 95 O2 Delivery Room Air Room Air Room Air 05/09/16 05/09/16 05/09/16 05/09/16 15:23 20:32 21:51 22:00 Temp 97.7 Pulse 77 86 Resp 16 16 B/P 136/68 151/72 Pulse Ox 92 O2 Delivery Room Air Room Air 05/10/16 06:00 Temp 97.2 Pulse 87 Resp 17 B/P 142/74 Pulse Ox 93 O2 Delivery Room Air I&O- Last 24 Hours up to 6 AM 05/10/16 05:59 Intake Total 1670 ml Output Total 0 ml Balance 1670 ml Labs 24H Laboratory Tests 2 05/09/16 13:27: CSF Appearance CLEAR, CSF Cell Count Tube # TUBE 3, CSF Color COLORLESS, CSF Eosinophils % 0.0, CSF Glucose 59, CSF Lymphocytes % 55.0H, CSF Monocytes % 23.0H, CSF Neutrophils % 22.0H, CSF RBC 94H, CSF Total Protein 22.2, CSF Tube Number TUBE 1, CSF WBC 17H 05/10/16 06:06: Blood Urea Nitrogen 5L, Creatinine 0.35L, Sodium Level 133L, Potassium Level 3.4L, Chloride Level 99, Carbon Dioxide Level 24, Calcium Level 8.9, Aspartate Amino Transf (AST/SGOT) 15, Alanine Aminotransferase (ALT/SGPT) 38, Alkaline Phosphatase 107, Total Bilirubin 0.3, Total Protein 6.7, Albumin 2.8L, Albumin/ Globulin Ratio 0.72L, Anion Gap 10, C-Reactive Protein, Quantitative 9.96H, Glomerular Filtration Rate > 60.0, Lymphocytes (Manual) 6L, Monocytes (Manual) 7 , Neutrophils 87H, Platelet Estimate NORMAL, Red Blood Cell Morphology NORMAL, Vancomycin Level Trough 15.0 CBC/BMP Laboratory Tests 05/10/16 06:06 Calcium Level 8.9, Aspartate Amino Transf (AST/SGOT) 15, Alanine Aminotransferase (ALT/SGPT) 38, Alkaline Phosphatase 107, Total Bilirubin 0.3, Total Protein 6.7, Albumin 2.8 L Medications Current Medications Acetaminophen (Tylenol) 650 mg Q4HP PRN PO MILD PAIN OR FEVER Last administered on 05/07/16 01:09; Start 05/02/16 at 06:00; Stop 06/05/16 at 05:59 Albuterol Sulfate 2.5 mg 2.5 mg Q2HP PRN INH SOB/WHEEZING; Start 05/02/16 at 06 :00; Stop 06/05/16 at 05:59 Amlodipine Besylate (Norvasc) 10 mg QHS PO Last administered on 05/09/16 20:32 ; Start 05/02/16 at 21:00; Stop 06/05/16 at 20:59 Enoxaparin Sodium (Lovenox) 40 mg DAILY SC Last administered on 05/05/16 08:14 ; Start 05/02/16 at 09:00; Stop 05/11/16 at 08:59 Fentanyl Citrate (Sublimaze) 25 mcg Q5MP PRN IV PAIN; Start 05/06/16 at 20:30; Stop 05/06/16 at 21:30; Status DC Fentanyl Citrate (Sublimaze) 25 mcg Q5MP PRN IV PAIN; Start 05/07/16 at 16:00; Stop 05/07/16 at 17:00; Status DC Gentamicin Sulfate 80 mg/IV Miscellaneous Supplies 100 ml @ 200 mls/hr ASDIRECTED IV Last administered on 05/06/16 16:20; Start 05/06/16 at 06:00; Stop 05/06/16 at 21:05; Status DC Home Med (Med Rec Complete!) ASDIRECTED XX ; Start 05/02/16 at 04:30; Stop at 07:09; Status DC Lactated Ringer's (Lactated Ringer'S) 1,000 ml @ 75 mls/hr [id number] IV ; Start 05/07/16 at 16:00; Stop 05/07/16 at 17:00; Status DC Lactated Ringer's (Lactated Ringer'S) 1,000 ml @ 100 mls/hr Q10H IV ; Start at 20:30; Stop 05/06/16 at 21:30; Status DC Meropenem 1 gm/ Dextrose 100 ml @ 200 mls/hr Q8H IV Last administered on 08:52; Start 05/08/16 at 18:00; Stop 05/15/16 at 17:59 Metoclopramide HCl 10 mg 10 mg Q6HP PRN IV NAUSEA OR VOMITING; Start 05/06/16 at 20:30; Stop 05/06/16 at 21:30; Status DC Metoclopramide HCl 10 mg 10 mg Q6HP PRN IV NAUSEA OR VOMITING; Start 05/07/16 at 16:00; Stop 05/07/16 at 17:00; Status DC Omeprazole (PriLOSEC) 20 mg DAILY PO Last administered on 05/10/16 08:51; Start 05/02/16 at 09:00; Stop 06/05/16 at 08:59 Ondansetron HCl (Zofran) 4 mg Q4HP PRN IV NAUSEA OR VOMITING; Start 05/06/16 at 20:30; Stop 05/06/16 at 21:30; Status DC Ondansetron HCl (Zofran) 4 mg Q4HP PRN IV NAUSEA OR VOMITING; Start 05/07/16 at 16:00; Stop 05/07/16 at 17:00; Status DC Ondansetron HCl (Zofran) 4 mg Q6HP PRN IV NAUSEA OR VOMITING Last administered on 05/07/16 15:25; Start 05/02/16 at 06:00; Stop 06/05/16 at 05:59 Oxycodone/ Acetaminophen (Percocet 5mg/ 325mg Tablet) 1 tab ASDIRECTED PRN PO PAIN; Start 05/07/16 at 16:00; Stop 05/07/16 at 17:00; Status DC Potassium Chloride/Sodium Chloride 1,000 ml @ 125 mls/hr Q8H IV Last administered on 05/10/16 08:51; Start 05/06/16 at 15:30; Stop 06/05/16 at 15:29 Potassium Chloride/Sodium Chloride 1,000 ml @ 125 mls/hr Q8H IV ; Start at 18:15; Stop 06/07/16 at 18:14; Status Cancel Salmeterol Xinafoate/ Fluticasone (Advair Diskus 250/50) 1 puff BID INH Last administered on 05/10/16 08:21; Start 05/02/16 at 09:00; Stop 06/05/16 at 08:59 Senna/Docusate Sodium (Senokot S) 1 tab QHS PRN PO CONSTIPATION; Start at 06:00; Stop 06/05/16 at 05:59 Sertraline HCl (Zoloft) 50 mg QHS PO Last administered on 05/09/16 20:32; Start 05/02/16 at 21:00; Stop 06/05/16 at 20:59 Tramadol HCl (Ultram) 50 mg Q6H PRN PO PAIN Last administered on 05/09/16 14: 53; Start 05/02/16 at 06:00; Stop 05/13/16 at 05:59 Vancomycin HCl 1000 mg/IV Miscellaneous Supplies 1 each/ Dextrose 270 ml @ 270 mls/hr ASDIRECTED IV ; Start 05/06/16 at 06:00; Stop 05/06/16 at 21:05; Status DC Vancomycin HCl/IV Miscellaneous Supplies/Dextrose (Vancomycin HCl/ Adapter-Vial Mate/ Dextrose 5%) 270 ml @ 270 mls/hr Q12H IV Last administered on 05/10/16 08:51; Start 05/09/16 at 08:00; Stop 05/16/16 at 07:59 Allergies: Coded Allergies: Codeine (Unverified Allergy, Intermediate, hives, 02/28/16) Sulfa Drugs (Verified Allergy, Intermediate, SWELLING, 02/28/16) Clavulanic Acid (Unverified Adverse Reaction, Mild, GI ISSUES w/ AUGMENTIN , 02/28/16) PATIENT DENIED ANY SOB OR HIVES Penicillins (Unverified Adverse Reaction, Mild, GI ISSUES w/ AUGMENTIN, ) PATIENT DENIED SOB OR HX OF HIVES PER DR Amparo MONTENEGRO 02/28/16 GME ATTESTATION GME ATTESTATION My preceptor for this patient encounter was Dr. Urbina and he was physically present in the building during the encounter and was fully available. As needed , all aspects of the patient interview, examination, medical decision making process, and medical care plan development were reviewed and approved by the preceptor. Preceptor is aware and concurs with the plan as stated in the body of this note and will attest to such by his/her cosignature. HAFSA WINSTON DO May 10, 2016 09:46
--- NOTE | 2016-05-10 13:29 | IPNPDOC ---
Assessment/Plan Date Seen The patient was seen on 05/10/16. Problems Problems: (1) Fever of unknown origin Status: Resolved Problem Text: D5 vanco (vanco trough 15 05/10)/[id number] 05/10 Tm 99.8, WBC 13.9 (N 87), CRP 10 (05/09 13), transfer d/w with patient and family who all agree transfer accepted by Dr. Piedra but on waiting list for probably 1-2D-Dr. Kumari aware of wait 05/09 WBC down to 18 (05/08 25K!), unable to obtain LP due to patient discomfort; therefore, [place] repeated shunt tap revealing 17 WBCs, gram stain c G+ cocci in pairs and chains-therefore, case d/w Dr. Lao and Dr. Kumari and it ws decided to transfer patient back to [facility] to exteriorize the shunt given patient has already failed antibiotic trial to clear the SOLAR CONSULTANT shunt (on cefipime 2 q12H, metro 500 q6H and vanco from 03/22/16 x 3W) 05/08 lethargic, febrile and WBC to 25K!-after discussion with ID, started vancomycin and meropenem; blood cultures ordered;favoring SOLAR CONSULTANT shunt as most likely source 05/07 s leukocytosis, but 05/06/15 Tm 101.7 and lethargic 05/05/16 CRP 0.7, ESR 35 05/08/16 BCX x 2 NG 05/03/16 SOLAR CONSULTANT shunt CX 2 S. epidermiditis species-few and moderate-MRI brain pending 05/02/16 - PCR resp panel 05/01/16 BCX x 2/UCX NG (2) Common bile duct (CBD) obstruction Status: Acute Problem Text: 05/10/16 plan d/w Dr. Centeno-favors repeat cholangiogram +/- catheter removal in 4W 05/07/16 percutaneous transhepatic cholangiogram, distal CBD stricture biopsy ( benign by pathology), CBD stone removal and internal-external biliary drainage catheter placement by Dr. Centeno 05/06/16 ERCP unable to perform cholangiogram-Reindl to ask IR for CBD stent placement . (3) Metabolic encephalopathy Status: Acute Problem Text: favor secondary to SOLAR CONSULTANT shunt infection (4) Nonfunctioning ventriculoperitoneal shunt Status: Acute Problem Text: 05/04/2016: improved function per neurosurgery note. 05/06/16 MRI brain s/c mild hydro s change, no obvious infection (meningitis, shuntitis) 05/08 normal shunt study, neurosurgery suggests shunt likely colonized, and hopes to treat with abx; prefers LP and culture to directly culturing from shunt (5) COPD (chronic obstructive pulmonary disease) Status: Chronic Problem Text: Nursing felt perhaps lung sounds more diminished, CXR ordered (6) Hypertension Status: Chronic (7) Cerebral aneurysm Permanent Comment: s/p ICA/basilar coiling, s/p SOLAR CONSULTANT shunt 2014 Last Edited By: Yoseph Medina MD on May 10, 2016 13:40 Status: Chronic Response to Treatment: Stable (8) Depression Status: Chronic (9) S/P splenectomy Status: Chronic Response to Treatment: Stable Problem Text: obviously higher sepsis risk Plan / VTE VTE Prophylaxis Ordered?: Yes (Lovenox) Plan Therapy: PT, OT Subjective Review of Systems CC/HPI The patient is a 70-year-old female admitted with a reason for visit of Metabolic Encephalopathy. Objective Physical Examination General Exam: Positive: Alert, No Acute Distress Eye Exam: Positive: Conjunctiva & lids normal, EOMI, PERRLA, Negative: Sclera icteric ENT Exam: Positive: Atraumatic, Mucous membr. moist/pink, Pharynx Normal Neck Exam: Positive: Supple, Negative: JVD, thyromegaly Chest Exam: Positive: Clear to auscultation, Diminished Heart Exam: Positive: Normal S1, Normal S2, Rate Normal, Regular Rhythm, Negative: Murmurs, Rubs Abdomen Exam: Positive: Normal bowel sounds, Soft, Negative: Hepatospenomegaly, Tenderness Extremity Exam: Positive: Normal pulses, Negative: Clubbing, Cyanosis, Edema Skin Exam: Positive: Nl turgor and temperature, Negative: Breakdown Neuro Exam: Positive: Other (vague in response. ) Psych Exam: Positive: Other (sleepy, confused) Vital Signs/I&O Vital Signs Date Time Temp Pulse Resp B/P Pulse Ox O2 Delivery O2 Flow Rate FiO2 05/10/16 08:00 Room Air 05/10/16 06:00 97.2 87 17 142/74 93 05/08/16 14:00 3.0 I&O- Last 24 Hours up to 6 AM 05/10/16 05:59 Intake Total 1670 ml Output Total 0 ml Balance 1670 ml Laboratory Data Labs 24H Laboratory Tests 2 05/09/16 13:27: CSF Appearance CLEAR, CSF Cell Count Tube # TUBE 3, CSF Color COLORLESS, CSF Eosinophils % 0.0, CSF Glucose 59, CSF Lymphocytes % 55.0H, CSF Monocytes % 23.0H, CSF Neutrophils % 22.0H, CSF RBC 94H, CSF Total Protein 22.2, CSF Tube Number TUBE 1, CSF WBC 17H 05/10/16 06:06: Blood Urea Nitrogen 5L, Creatinine 0.35L, Sodium Level 133L, Potassium Level 3.4L, Chloride Level 99, Carbon Dioxide Level 24, Calcium Level 8.9, Aspartate Amino Transf (AST/SGOT) 15, Alanine Aminotransferase (ALT/SGPT) 38, Alkaline Phosphatase 107, Total Bilirubin 0.3, Total Protein 6.7, Albumin 2.8L, Albumin/ Globulin Ratio 0.72L, Anion Gap 10, C-Reactive Protein, Quantitative 9.96H, Glomerular Filtration Rate > 60.0, Lymphocytes (Manual) 6L, Monocytes (Manual) 7 , Neutrophils 87H, Platelet Estimate NORMAL, Red Blood Cell Morphology NORMAL, Vancomycin Level Trough 15.0 CBC/BMP Laboratory Tests 05/10/16 06:06 Calcium Level 8.9, Aspartate Amino Transf (AST/SGOT) 15, Alanine Aminotransferase (ALT/SGPT) 38, Alkaline Phosphatase 107, Total Bilirubin 0.3, Total Protein 6.7, Albumin 2.8 L Microbiology Microbiology 05/08/16 Blood Culture - Preliminary, Resulted No growth after 24 hours . All specim... 05/08/16 Blood Culture - Preliminary, Resulted No growth after 24 hours . All specim... 05/01/16 Blood Culture - Final, Complete NO GROWTH AFTER 5 DAYS 05/01/16 Blood Culture - Final, Complete NO GROWTH AFTER 5 DAYS 05/09/16 Fungal Smear, Received Pending 05/09/16 Fungal Culture, Received Pending 05/09/16 Gram Stain - Final, Resulted 05/09/16 CSF Culture, Resulted Pending 05/03/16 Fungal Smear, Received Pending 05/03/16 Fungal Culture, Received Pending 05/03/16 Gram Stain - Final, Complete 05/03/16 CSF Culture - Final, Complete Staphylococcus Epidermidis Staphylococcus Epidermidis#2 05/02/16 Respiratory Virus Panel (PCR) ([facility]) - Final, Complete 05/01/16 Urine Culture - Final, Complete 05/09/16 Anaerobic Culture, Received Pending 05/03/16 Anaerobic Culture - Final, Complete Yoseph Medina M.D. May 10, 2016 13:29 Pending 05/03/16 Anaerobic Culture - Final, Complete Yoseph Medina M.D. May 10, 2016 13:29
[2016-05-10 14:00] VITALS: BP 130/67
[2016-05-10] MEDS ORDERED: POTASSIUM CHLORIDE 10 MEQ SR TABLET PO ONE (14:00)
[2016-05-10] MEDS: traMADol 50 MG TAB PO PRN ×3 (14:21→23:26)
[2016-05-10 17:59] VITALS: BP 150/72
[2016-05-10] MEDS ORDERED: THROMBIN SOLN 20,000 UNITS KIT As Ordered ONE (18:38)
[2016-05-10] MEDS ORDERED: LIDOCAINE W/EPINEPHRINE 1% 20ML VIAL As Ordered ONE (18:38)
[2016-05-10] MEDS ORDERED: BACITRACIN PWD 50,000 UNITS VIAL As Ordered ONE (18:39)
[2016-05-10] MEDS ORDERED: DESFLURANE 240 ML INHALANT As Ordered ONE (20:37)
[2016-05-10] MEDS ORDERED: VANCOMYCIN 1000 MG/20 ML VIAL (J3370) As Ordered ONE (20:54)
[2016-05-10] MEDS ORDERED: ONDANSETRON 4MG/2ML VIAL (J2405) IV PRN (21:00)
[2016-05-10] MEDS ORDERED: LR 1,000 ML IV SCH (21:00)
[2016-05-10] MEDS ORDERED: traMADol 50 MG TAB As Ordered ONE (22:06)
[2016-05-10 22:34] LABS: GLUCOSE CSF 62 MG/DL (40-75)
[2016-05-10 22:37] LABS: RBC CSF AUTO 15 /mm3 (0-0); WBC CSF AUTO 9 /mm3 (0-10)
[2016-05-10 22:38] LABS: APPEARANCE, CSF CLEAR (CLEAR); COLOR, CSF COLORLESS (COLORLESS); CSF DIFF IF INDICATED? NO (NO); CSF TUBE# CELL CNT TUBE 1
[2016-05-10 22:39] LABS: CSF DILUENT LOT # 6109
--- NOTE | 2016-05-10 22:53 | IPN ---
DATE: 05/10/2016 Ms. Murcia seems to be doing well. She denies any complaint this afternoon. She was told she was going to the operating room to externalize her COUNTY ADVISER shunt as there was evidence of infection. Case has been discussed with Dr. Medina as well as Dr. Kumari who will be taking to the OR tonight. She continues to be on vancomycin and meropenem. She has been afebrile. She does not have significant complaint. Temperature is 98.9, pulse 74, respirations 20, blood pressure 138/69, O2 saturation 95% on room air. Neck is supple. No jugular venous distention (JVD). No stiffness. Heart: Normal S1-S2. Lungs are clear. Abdomen is soft, nontender. Right cholecystotomy tube has been clamped. Extremities: No edema. LABORATORY DATA: White count is 13.9, hemoglobin 13.4, hematocrit 40.4, platelets 267, 87% neutrophils, 6% lymphocytes. Sodium 133, potassium 3.4, chloride 99, bicarb 24, BUN 5, creatinine 0.35, glucose 109. LFTs are normal. AST 15, ALT 38, CRP is 9.96 down from 13. Albumin 2.8. Culture from CSF done yesterday is still pending. Fungal smear and culture are pending. Anaerobic culture are pending and blood cultures, two sets on 05/08 were no growth after 48 hours. CSF fluid sent from the OR today still pending. IMPRESSION: 1. COUNTY ADVISER shunt infection. CSF had 17 white cells, 94 red cells. Culture still pending from the second tap. The first tap had staphylococcus epidermidus. 2. Cholecystitis, status post stenting in common bile duct. Doing fairly well. No evidence of infection. PLAN Will continue to monitor. Review results of cultures. PICC line will be ordered. The patient will need IV antibiotics for at least two weeks before a new shunt could be placed.
[2016-05-10 23:00] VITALS: BP 130/66
[2016-05-10] MEDS: SERTRALINE HCL 50 MG TAB PO SCH (23:24)
[2016-05-10] MEDS: amLODIPine 10 MG TAB PO SCH (23:25)
[2016-05-10] MEDS: KCL 20MEQ IN D5/0.45NS 1000ML 1,000 ML IV SCH (23:26)
[2016-05-10 23:30] VITALS: BP 146/71
[2016-05-10] MEDS: ACETAMINOPHEN TAB 650MG DOSE (2X325MG) PO PRN (23:58)
[2016-05-11] VITALS (17 sets, daily range): BP systolic 97–142; BP diastolic 54–98
[2016-05-11] MEDS: ONDANSETRON 4MG/2ML VIAL (J2405) IV PRN (00:04)
--- NOTE | 2016-05-11 01:20 | REPUSA ---
CT of the head Clinical history: encephalopathy. Protocol: Multiple axial CT images obtained with 5 mm slice thickness were obtained through the head without administration of contrast. Comparison: 05/04/2016. Findings: The ventricles and sulci are symmetric but prominent in size bilaterally. A shunt catheter is seen entering the right frontal lobe, terminating in the frontal horn of the right lateral ventric le. There are periventricular areas of low attenuation throughout the deep white matter. There is no evidence of acute hemorrhage or infarct. There is no midline shift, mass effect, or extra-axial fluid collection. The osseous structures are unremarkable. The visualized paranasal sinuses and mastoid ai r cells are clear. Impression: No acute hemorrhage or infarct. Findings are consistent with moderate stable age-related atrophy and chronic small vessel ischemic disease. No evidence of hydrocephalus at this time.
[2016-05-11] MEDS: MEROPENEM INJ 1 GM in D5W MINI-BAG PLUS 100 ML IV SCH ×3 (02:31→17:25)
[2016-05-11 04:36] LABS: MEAN CORPUSCULAR HEMOGLOBIN 30.9 pg (27.0-33.0); MEAN CORPUSCULAR HGB CONC 33.4 g/dl (32.0-36.5); MEAN CORPUSCULAR VOLUME 92.6 fl (80.0-96.0); RED CELL DISTRIBUTION WIDTH 13.8 % (11.5-14.5); WHITE BLOOD COUNT 10.7 K/mm3 (4.0-10.0)
[2016-05-11 04:58] LABS: ALBUMIN 2.6 GM/DL (3.2-5.2); ALBUMIN/GLOBULIN RATIO 0.67 (1.00-1.93); ALKALINE PHOSPHATASE 97 U/L (45-117); ALT/SGPT 27 U/L (12-78); ANION GAP 11 MEQ/L (8-16); AST/SGOT 8 U/L (15-37); BILIRUBIN,TOTAL 0.3 MG/DL (0.2-1.0); BLOOD UREA NITROGEN 6 MG/DL (7-18); CALCIUM LEVEL 8.7 MG/DL (8.8-10.2); CARBON DIOXIDE LEVEL 24 MEQ/L (21-32); CHLORIDE LEVEL 101 MEQ/L (98-107); CREATININE FOR GFR 0.46 MG/DL (0.55-1.02); GLOMERULAR FILTRATION RATE > 60.0 (>39); GLUCOSE, FASTING 141 MG/DL (83-110); POTASSIUM SERUM 3.8 MEQ/L (3.5-5.1); SODIUM LEVEL 136 MEQ/L (136-145); TOTAL PROTEIN 6.5 GM/DL (6.4-8.2)
[2016-05-11 05:59] LABS: EOSINOPHILS 1 % (0-5)
[2016-05-11] MEDS: ADVAIR DISKUS 250/50 INH PWD INH SCH ×2 (07:55→20:44)
[2016-05-11] MEDS: OMEPRAZOLE 20 MG CAP PO SCH (08:18)
[2016-05-11] MEDS: ENOXAPARIN 40 MG/0.4 ML SYRINGE (J1650) SC SCH (08:18)
[2016-05-11] MEDS: VANCOMYCIN HCL 1,000 MG, VIAL MATE ADAPTER 1 EACH in D5W 250 ML IV SCH ×2 (08:18→20:37)
[2016-05-11] MEDS: KCL 20MEQ IN D5/0.45NS 1000ML 1,000 ML IV SCH ×2 (09:38→18:00)
--- NOTE | 2016-05-11 09:52 | IPNPDOC ---
Assessment/Plan Date Seen The patient was seen on 05/11/16. Family Medicine Attending Note: I saw and examined Ms. Murcia, discussed with KARINE Curtis. Agree with their note as documented. Ms. Murcia seems to be doing relatively well today. Nurses do report she is getting some agitation related to nicotine withdrawal. The patient reports to me that she is recently been smoking 3-4 cigarettes a day, but affirms that she is having some difficulty with tobacco cravings. I will add a 7 mg patch to her today. 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 05/10 Tm 99.8, WBC 13.9 (N 87), CRP 10 (05/09 13), transfer d/w with patient and family who all agree transfer accepted by Dr. Piedra but on waiting list for probably 1-2D-Dr. Kumari aware of wait 05/09 WBC down to 18 (05/08 25K!), unable to obtain LP due to patient discomfort; therefore, Kenyetta repeated shunt tap revealing 17 WBCs, gram stain c G+ cocci in pairs and chains-therefore, case d/w Dr. Lao and Dr. Kumari and it ws decided to transfer patient back to [facility] to exteriorize the shunt given patient has already failed antibiotic trial to clear the TURN SUPERVISOR shunt (on cefipime 2 q12H, metro 500 q6H and vanco from 03/22/16 x 3W) 05/08 lethargic, febrile and WBC to 25K!-after discussion with ID, started vancomycin and meropenem; blood cultures ordered;favoring TURN SUPERVISOR shunt as most likely source 05/07 s leukocytosis, but 05/06/15 Tm 101.7 and lethargic 05/05/16 CRP 0.7, ESR 35 05/08/16 BCX x 2 NG 05/03/16 TURN SUPERVISOR shunt CX 2 S. epidermiditis species-few and moderate-MRI brain pending 05/02/16 - PCR resp panel 05/01/16 BCX x 2/UCX NG (2) Common bile duct (CBD) obstruction Status: Acute Problem Text: 05/10/16 plan d/w Dr. Centeno-favors repeat cholangiogram +/- catheter removal in 4W 05/07/16 percutaneous transhepatic cholangiogram, distal CBD stricture biopsy ( benign by pathology), CBD stone removal and internal-external biliary drainage catheter placement by Dr. Centeno 05/06/16 ERCP unable to perform cholangiogram-Reindl to ask IR for CBD stent placement . (3) Metabolic encephalopathy Status: Acute Problem Text: favor secondary to TURN SUPERVISOR shunt infection (4) Nonfunctioning ventriculoperitoneal shunt Status: Acute Problem Text: 05/04/2016: improved function per neurosurgery note. 05/06/16 MRI brain s/c mild hydro s change, no obvious infection (meningitis, shuntitis) 05/08 normal shunt study, neurosurgery suggests shunt likely colonized, and hopes to treat with abx; prefers LP and culture to directly culturing from shunt (5) COPD (chronic obstructive pulmonary disease) Status: Chronic Problem Text: Nursing felt perhaps lung sounds more diminished, CXR ordered (6) Hypertension Status: Chronic (7) Cerebral aneurysm Permanent Comment: s/p ICA/basilar coiling, s/p TURN SUPERVISOR shunt 2014 Last Edited By: Yoseph Medina MD on May 10, 2016 13:40 Status: Chronic Response to Treatment: Stable (8) Depression Status: Chronic (9) Tobacco use Status: Chronic Problem Text: 7 mg nicotine patch was ordered to help her with cravings. 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 She is without new concerns. She denies pain. General: Denies: Fatigue Constitutional: Denies: Chills, Fever ENT: Denies: Head Aches Pulmonary: Denies: Cough, Dyspnea Cardiovascular: Denies: Chest Pain, Palpitations Gastrointestinal: Denies: Diarrhea, Nausea, Vomiting Psych: Reports: Mood Normal Objective Physical Examination General Exam: Positive: Alert, No Acute Distress Eye Exam: Positive: PERRLA, Negative: Sclera icteric ENT Exam: Positive: Mucous membr. moist/pink, Pharynx Normal Neck Exam: Positive: Supple, Negative: JVD, thyromegaly Chest Exam: Positive: Clear to auscultation, Diminished Heart Exam: Positive: Normal S1, Normal S2, Rate Normal, Regular Rhythm, Negative: Murmurs, Rubs Abdomen Exam: Positive: Normal bowel sounds, Soft, Negative: Hepatospenomegaly, Tenderness Extremity Exam: Positive: Normal pulses, Negative: Clubbing, Cyanosis, Edema Skin Exam: Positive: Nl turgor and temperature, Negative: Breakdown Neuro Exam: Positive: Other (vague in response. ) Psych Exam: Positive: Other (sleepy, confused) Vital Signs/I&O Vital Signs Date Time Temp Pulse Resp B/P Pulse Ox O2 Delivery O2 Flow Rate FiO2 05/11/16 08:00 Room Air 05/11/16 06:00 64 16 133/63 95 05/11/16 04:00 98.4 05/08/16 14:00 3.0 I&O- Last 24 Hours up to 6 AM 05/11/16 06:00 Intake Total 1673 ml Output Total 700 ml Balance 973 ml Laboratory Data Labs 24H Laboratory Tests 2 05/10/16 14:49: Activated Partial Thromboplast Time 29.1, Platelet Func Collagen/Epinephrine 88 , Prothromb Time International Ratio 1.00, Prothrombin Time 13.3 05/10/16 21:51: CSF Appearance CLEAR, CSF Cell Count Tube # TUBE 1, CSF Color COLORLESS, CSF Eosinophils % , CSF Glucose 62, CSF Lymphocytes % , CSF Monocytes % , CSF Neutrophils % , CSF RBC 15H, CSF Total Protein 26.1, CSF Tube Number TUBE 1, CSF WBC 9 05/11/16 04:21: Blood Urea Nitrogen 6L, Creatinine 0.46L, Sodium Level 136, Potassium Level 3.8 , Chloride Level 101, Carbon Dioxide Level 24, Calcium Level 8.7L, Aspartate Amino Transf (AST/SGOT) 8L, Alanine Aminotransferase (ALT/SGPT) 27, Alkaline Phosphatase 97, Total Bilirubin 0.3, Total Protein 6.5, Albumin 2.6L, Albumin/ Globulin Ratio 0.67L, Anion Gap 11, Atypical Lymphocytes 2, C-Reactive Protein, Quantitative 6.92H, Eosinophils (Manual) 1, Glomerular Filtration Rate > 60.0, Lymphocytes (Manual) 14L, Monocytes (Manual) 9H, Neutrophils 74, Platelet Estimate NORMAL, Red Blood Cell Morphology NORMAL CBC/BMP Laboratory Tests 05/11/16 04:21 Calcium Level 8.7 L, Aspartate Amino Transf (AST/SGOT) 8 L, Alanine Aminotransferase (ALT/SGPT) 27, Alkaline Phosphatase 97, Total Bilirubin 0.3, Total Protein 6.5, Albumin 2.6 L Microbiology Microbiology 05/08/16 Blood Culture - Preliminary, Resulted No Growth after 48 hours. All Specime... 05/08/16 Blood Culture - Preliminary, Resulted No Growth after 48 hours. All Specime... 05/01/16 Blood Culture - Final, Complete NO GROWTH AFTER 5 DAYS 05/01/16 Blood Culture - Final, Complete NO GROWTH AFTER 5 DAYS 05/10/16 Fungal Smear, Received Pending 05/10/16 Fungal Culture, Received Pending 05/10/16 Gram Stain - Final, Resulted 05/10/16 CSF Culture, Resulted Pending 05/09/16 Fungal Smear, Received Pending 05/09/16 Fungal Culture, Received Pending 05/09/16 Gram Stain - Final, Resulted 05/09/16 CSF Culture, Resulted Pending 05/03/16 Fungal Smear, Received Pending 05/03/16 Fungal Culture, Received Pending 05/03/16 Gram Stain - Final, Complete 05/03/16 CSF Culture - Final, Complete Staphylococcus Epidermidis Staphylococcus Epidermidis#2 05/10/16 MRSA Screen, Received Pending 05/02/16 Respiratory Virus Panel (PCR) (VICKIE) - Final, Complete 05/01/16 Urine Culture - Final, Complete 05/10/16 Catheter Tip Culture, Received Pending 05/09/16 Anaerobic Culture, Received Pending 05/03/16 Anaerobic Culture - Final, Complete ANA TAVAREZ PA-C May 11, 2016 09:52 Scott Mcgee MD May 11, 2016 22:38
[2016-05-11 14:27] LABS: BASO # 0.2 K/mm3 (0.0-0.2); BASO % 1.3 % (0.0-1.0); EOS # 0.2 K/mm3 (0.0-0.50); LARGE UNSTAINED CELL # 0.3 K/mm3 (0.0-0.4); LARGE UNSTAINED CELL % 2.4 % (0.0-4.0); LYMPH # 3.2 K/mm3 (1.5-4.5); LYMPH % 25.8 % (24.0-44.0); MEAN CORPUSCULAR HEMOGLOBIN 30.2 pg (27.0-33.0); MEAN CORPUSCULAR VOLUME 91.4 fl (80.0-96.0); MONO # 0.6 K/mm3 (0.0-0.8); MONO % 5.2 % (0.0-5.0); NEUTROPHILS # 7.1 K/mm3 (1.8-7.7); NEUTROPHILS % 63.2 % (36.0-66.0); PLATELET COUNT, AUTOMATED 307 k/mm3 (150-450); RED CELL DISTRIBUTION WIDTH 14.9 % (11.5-14.5); WHITE BLOOD COUNT 11.2 K/mm3 (4.0-10.0)
[2016-05-11] MEDS: SERTRALINE HCL 50 MG TAB PO SCH (20:37)
[2016-05-11] MEDS: amLODIPine 10 MG TAB PO SCH (20:39)
[2016-05-11] MEDS: NICOTINE 7 MG/24 HR TRANSDERMAL TD SCH (21:04)
[2016-05-12] VITALS (12 sets, daily range): BP systolic 123–161; BP diastolic 58–89
[2016-05-12] MEDS: KCL 20MEQ IN D5/0.45NS 1000ML 1,000 ML IV SCH ×2 (00:14→14:16)
[2016-05-12] MEDS: ACETAMINOPHEN TAB 650MG DOSE (2X325MG) PO PRN ×3 (00:27→23:22)
[2016-05-12] MEDS: MEROPENEM INJ 1 GM in D5W MINI-BAG PLUS 100 ML IV SCH ×3 (02:28→18:05)
[2016-05-12 05:01] LABS: MEAN CORPUSCULAR HEMOGLOBIN 30.6 pg (27.0-33.0); MEAN CORPUSCULAR HGB CONC 33.3 g/dl (32.0-36.5); MEAN CORPUSCULAR VOLUME 91.7 fl (80.0-96.0); RED CELL DISTRIBUTION WIDTH 14.9 % (11.5-14.5); WHITE BLOOD COUNT 10.9 K/mm3 (4.0-10.0)
[2016-05-12 05:12] LABS: ALBUMIN 2.6 GM/DL (3.2-5.2); ALBUMIN/GLOBULIN RATIO 0.67 (1.00-1.93); ALKALINE PHOSPHATASE 96 U/L (45-117); ALT/SGPT 23 U/L (12-78); ANION GAP 7 MEQ/L (8-16); AST/SGOT 10 U/L (15-37); BILIRUBIN,TOTAL 0.2 MG/DL (0.2-1.0); BLOOD UREA NITROGEN 6 MG/DL (7-18); CALCIUM LEVEL 8.7 MG/DL (8.8-10.2); CARBON DIOXIDE LEVEL 28 MEQ/L (21-32); CHLORIDE LEVEL 106 MEQ/L (98-107); CREATININE FOR GFR 0.47 MG/DL (0.55-1.02); GLOMERULAR FILTRATION RATE > 60.0 (>39); GLUCOSE, FASTING 116 MG/DL (83-110); POTASSIUM SERUM 3.6 MEQ/L (3.5-5.1); SODIUM LEVEL 141 MEQ/L (136-145); TOTAL PROTEIN 6.5 GM/DL (6.4-8.2)
[2016-05-12 06:09] LABS: BASOPHILS 1 % (0-4)
[2016-05-12] MEDS: ADVAIR DISKUS 250/50 INH PWD INH SCH ×2 (07:51→20:28)
[2016-05-12] MEDS: OMEPRAZOLE 20 MG CAP PO SCH (08:01)
[2016-05-12] MEDS: ENOXAPARIN 40 MG/0.4 ML SYRINGE (J1650) SC SCH (08:02)
[2016-05-12] MEDS: VANCOMYCIN HCL 1,000 MG, VIAL MATE ADAPTER 1 EACH in D5W 250 ML IV SCH ×2 (08:02→20:12)
--- NOTE | 2016-05-12 09:29 | IPNPDOC ---
Assessment/Plan Date Seen The patient was seen on 05/12/16. Family Medicine Attending Note: I saw and examined Ms. Murcia, discussed with KARINE Curtis. Agree with their note as documented. It seems that the patient is likely to stay with us, in the ICU, for about 2 weeks while we treat her with antibiotics and prepare for a new shunt placement. 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 ID recommends a minimum of 2 weeks of intravenous antibiotic before new shunt placement is considered. 05/08 normal shunt study, neurosurgery suggests shunt likely colonized, and hopes to treat with abx; prefers LP and culture to directly culturing from shunt 05/06/16 MRI brain s/c mild hydro s change, no obvious infection (meningitis, shuntitis) 05/04/2016: improved function per neurosurgery note. (2) Metabolic encephalopathy Response to Treatment: Stable Problem Text: favor secondary to POLE FRAMER shunt infection (3) Common bile duct (CBD) obstruction Status: Acute Problem Text: 05/10/16 plan d/w Dr. Centeno-favors repeat cholangiogram +/- catheter removal in 4W 05/07/16 percutaneous transhepatic cholangiogram, distal CBD stricture biopsy ( benign by pathology), CBD stone removal and internal-external biliary drainage catheter placement by Dr. Centeno 05/06/16 ERCP unable to perform cholangiogram-Reindl to ask IR for CBD stent placement . (4) COPD (chronic obstructive pulmonary disease) Status: Chronic Problem Text: Nursing felt perhaps lung sounds more diminished, CXR ordered (5) Fever of unknown origin Status: Resolved Problem Text: D7 vanco (vanco trough 15 05/10)/D5 meropenem 05/12 - Remains afebrile, WBC remains stable, CRP continues to trend down. 05/11 - Tmax 98.9, WBC 10.7, CRP 6.92, all improved c/w 05/10 Pt with Shunt removal yesterday by Dr Kumari, per Dr Lao 2 wk IV Abx prior to shunt replacement. 05/10 Tm 99.8, WBC 13.9 (N 87), CRP 10 (05/09 13), transfer d/w with patient and family who all agree transfer accepted by Dr. Piedra but on waiting list for probably 1-2D-Dr. Kumari aware of wait 05/09 WBC down to 18 (05/08 25K!), unable to obtain LP due to patient discomfort; therefore, Kenyetta repeated shunt tap revealing 17 WBCs, gram stain c G+ cocci in pairs and chains-therefore, case d/w Dr. Lao and Dr. Kumari and it ws decided to transfer patient back to [facility] to exteriorize the shunt given patient has already failed antibiotic trial to clear the POLE FRAMER shunt (on cefipime 2 q12H, metro 500 q6H and vanco from 03/22/16 x 3W) 05/08 lethargic, febrile and WBC to 25K!-after discussion with ID, started vancomycin and meropenem; blood cultures ordered;favoring POLE FRAMER shunt as most likely source 05/07 s leukocytosis, but 05/06/15 Tm 101.7 and lethargic 05/05/16 CRP 0.7, ESR 35 05/08/16 BCX x 2 NG 05/03/16 POLE FRAMER shunt CX 2 S. epidermiditis species-few and moderate-MRI brain pending 05/02/16 - PCR resp panel 05/01/16 BCX x 2/UCX NG (6) Hypertension Status: Chronic (7) Cerebral aneurysm Permanent Comment: s/p ICA/basilar coiling, s/p POLE FRAMER shunt 2014 Last Edited By: Yoseph Medina MD on May 10, 2016 13:40 Status: Chronic Response to Treatment: Stable (8) Depression Status: Chronic (9) Tobacco use Status: Chronic Problem Text: 7 mg nicotine patch was ordered to help her with cravings. 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 She denies ENRIQUEZ. She slept well. General: Denies: Fatigue Constitutional: Denies: Chills, Fever ENT: Denies: Head Aches Pulmonary: Denies: Cough, Dyspnea Cardiovascular: Denies: Chest Pain, Palpitations Gastrointestinal: Denies: Diarrhea, Nausea, Vomiting Neurological: Denies: Weakness Psych: Reports: Mood Normal Objective Physical Examination General Exam: Positive: Alert, No Acute Distress Eye Exam: Positive: PERRLA, Negative: Sclera icteric ENT Exam: Positive: Mucous membr. moist/pink, Pharynx Normal Neck Exam: Positive: Supple, Negative: JVD, thyromegaly Chest Exam: Positive: Clear to auscultation, Diminished Heart Exam: Positive: Normal S1, Normal S2, Rate Normal, Regular Rhythm, Negative: Murmurs, Rubs Abdomen Exam: Positive: Normal bowel sounds, Soft, Negative: Hepatospenomegaly, Tenderness Extremity Exam: Positive: Normal pulses, Negative: Clubbing, Cyanosis, Edema Skin Exam: Positive: Nl turgor and temperature, Negative: Breakdown Neuro Exam: Positive: Other (vague in response. ) Psych Exam: Positive: Other (sleepy, confused) Vital Signs/I&O Vital Signs Date Time Temp Pulse Resp B/P Pulse Ox O2 Delivery O2 Flow Rate FiO2 05/12/16 08:00 Room Air 05/12/16 08:00 98.6 63 20 128/66 97 05/08/16 14:00 3.0 I&O- Last 24 Hours up to 6 AM 05/12/16 06:00 Intake Total 3880 ml Output Total 265 ml Balance 3615 ml Laboratory Data Labs 24H Laboratory Tests 2 05/11/16 14:20: White Blood Count 11.2H, Red Blood Count 4.44, Hemoglobin 13.4, Hematocrit 40.6 , Mean Corpuscular Volume 91.4, Mean Corpuscular Hemoglobin 30.2, Mean Corpuscular Hemoglobin Concent 33.0, Red Cell Distribution Width 14.9H, Platelet Count 307, Neutrophils (%) (Auto) 63.2, Lymphocytes (%) (Auto) 25.8, Monocytes (%) (Auto) 5.2H, Eosinophils (%) (Auto) 2.0, Basophils (%) (Auto) 1.3H , Neutrophils # (Auto) 7.1, Lymphocytes # (Auto) 3.2, Monocytes # (Auto) 0.6, Eosinophils # (Auto) 0.2, Basophils # (Auto) 0.2, Large Unclassified Cells # 0.3 , Large Unclassified Cells % 2.4 05/12/16 04:27: Blood Urea Nitrogen 6L, Creatinine 0.47L, Sodium Level 141, Potassium Level 3.6 , Chloride Level 106, Carbon Dioxide Level 28, Calcium Level 8.7L, Aspartate Amino Transf (AST/SGOT) 10L, Alanine Aminotransferase (ALT/SGPT) 23, Alkaline Phosphatase 96, Total Bilirubin 0.2, Total Protein 6.5, Albumin 2.6L, Albumin/ Globulin Ratio 0.67L, Anion Gap 7L, Atypical Lymphocytes 2, Basophils (Manual) 1 , C-Reactive Protein, Quantitative 4.21H, Glomerular Filtration Rate > 60.0, Lymphocytes (Manual) 28, Monocytes (Manual) 6, Neutrophils 63, Platelet Estimate NORMAL, Red Blood Cell Morphology NORMAL CBC/BMP Laboratory Tests 05/11/16 14:20 Red Blood Count 4.44, Mean Corpuscular Volume 91.4, Mean Corpuscular Hemoglobin 30.2, Mean Corpuscular Hemoglobin Concent 33.0, Red Cell Distribution Width 14.9 H, Neutrophils (%) (Auto) 63.2, Lymphocytes (%) (Auto) 25.8, Monocytes (%) (Auto) 5.2 H, Eosinophils (%) (Auto) 2.0, Basophils (%) (Auto) 1.3 H, Neutrophils # (Auto) 7.1, Lymphocytes # (Auto) 3.2, Monocytes # (Auto) 0.6, Eosinophils # (Auto) 0.2, Basophils # (Auto) 0.2 05/12/16 04:27 Calcium Level 8.7 L, Aspartate Amino Transf (AST/SGOT) 10 L, Alanine Aminotransferase (ALT/SGPT) 23, Alkaline Phosphatase 96, Total Bilirubin 0.2, Total Protein 6.5, Albumin 2.6 L Microbiology Microbiology 05/08/16 Blood Culture - Preliminary, Resulted No Growth after 72 hours. All specime... 05/08/16 Blood Culture - Preliminary, Resulted No Growth after 72 hours. All specime... 05/10/16 Fungal Smear, Received Pending 05/10/16 Fungal Culture, Received Pending 05/10/16 Gram Stain - Final, Complete 05/10/16 CSF Culture - Final, Complete Staphylococcus Epidermidis 05/09/16 Fungal Smear, Received Pending 05/09/16 Fungal Culture, Received Pending 05/09/16 Gram Stain - Final, Complete 05/09/16 CSF Culture - Final, Complete Staphylococcus Epidermidis 05/03/16 Fungal Smear, Received Pending 05/03/16 Fungal Culture, Received Pending 05/03/16 Gram Stain - Final, Complete 05/03/16 CSF Culture - Final, Complete Staphylococcus Epidermidis Staphylococcus Epidermidis#2 05/10/16 MRSA Screen - Final, Complete 05/02/16 Respiratory Virus Panel (PCR) (VICKIE) - Final, Complete 05/10/16 Catheter Tip Culture, Received Pending 05/09/16 Anaerobic Culture - Final, Complete 05/03/16 Anaerobic Culture - Final, Complete ANA TAVAREZ PA-C May 12, 2016 09:29 Scott Mcgee MD May 12, 2016 20:45
[2016-05-12] MEDS: NICOTINE 7 MG/24 HR TRANSDERMAL TD SCH (20:11)
[2016-05-12] MEDS: SERTRALINE HCL 50 MG TAB PO SCH (20:11)
[2016-05-12] MEDS: amLODIPine 10 MG TAB PO SCH (20:12)
[2016-05-13] VITALS (12 sets, daily range): BP systolic 122–149; BP diastolic 59–80
[2016-05-13] MEDS: MEROPENEM INJ 1 GM in D5W MINI-BAG PLUS 100 ML IV SCH ×2 (01:42→10:23)
[2016-05-13 04:47] LABS: MEAN CORPUSCULAR HEMOGLOBIN 30.4 pg (27.0-33.0); MEAN CORPUSCULAR VOLUME 92.2 fl (80.0-96.0); RED CELL DISTRIBUTION WIDTH 13.8 % (11.5-14.5); WHITE BLOOD COUNT 8.7 K/mm3 (4.0-10.0)
[2016-05-13 05:15] LABS: ALBUMIN 2.9 GM/DL (3.2-5.2); ALBUMIN/GLOBULIN RATIO 0.73 (1.00-1.93); ALKALINE PHOSPHATASE 104 U/L (45-117); ALT/SGPT 28 U/L (12-78); ANION GAP 10 MEQ/L (8-16); AST/SGOT 12 U/L (15-37); BILIRUBIN,TOTAL 0.3 MG/DL (0.2-1.0); BLOOD UREA NITROGEN 6 MG/DL (7-18); CARBON DIOXIDE LEVEL 27 MEQ/L (21-32); CHLORIDE LEVEL 106 MEQ/L (98-107); CREATININE FOR GFR 0.42 MG/DL (0.55-1.02); GLOMERULAR FILTRATION RATE > 60.0 (>39); GLUCOSE, FASTING 88 MG/DL (83-110); POTASSIUM SERUM 3.4 MEQ/L (3.5-5.1); SODIUM LEVEL 143 MEQ/L (136-145); TOTAL PROTEIN 6.9 GM/DL (6.4-8.2)
[2016-05-13 05:41] LABS: BASOPHILS 4 % (0-4); EOSINOPHILS 4 % (0-5)
[2016-05-13 05:42] LABS: ANISOCYTOSIS 1+
[2016-05-13] MEDS: traMADol 50 MG TAB PO PRN ×2 (06:46→20:26)
[2016-05-13] MEDS ORDERED: POTASSIUM CHLORIDE 10 MEQ SR TABLET PO ONE (07:30)
--- NOTE | 2016-05-13 07:41 | IPNPDOC ---
Assessment/Plan Date Seen The patient was seen on 05/13/16. Family Medicine Attending Note: I saw and examined the Ms. Murcia today; I d/w KARINE Rosales and I agree with his note below. Ms Murcia has just returned from PICC placement and states that her arm at site of placement is sore. She denies any other complaints. She remains somewhat confused - she states she needs to go home but after I reminded her that she needs to stay for antibiotics , she agreed that this is the plan. Plan is for her to receive antibiotics x2 weeks and then have new shunt placed. (KES) Problems Problems: (1) Nonfunctioning ventriculoperitoneal shunt Status: Acute Problem Text: 05/10: The SALES ENABLEMENT CONSULTANT shunt was externalized by neurosurgery tonight because of evidence of infection. ID recommends a minimum of 2 weeks of intravenous antibiotic before new shunt placement is considered. 05/08 normal shunt study, neurosurgery suggests shunt likely colonized, and hopes to treat with abx; prefers LP and culture to directly culturing from shunt 05/06/16 MRI brain s/c mild hydro s change, no obvious infection (meningitis, shuntitis) 05/04/2016: improved function per neurosurgery note. (2) Metabolic encephalopathy Status: Acute Response to Treatment: Stable Problem Text: favor secondary to SALES ENABLEMENT CONSULTANT shunt infection (3) Common bile duct (CBD) obstruction Status: Acute Problem Text: 05/10/16 plan d/w Dr. Centeno-favors repeat cholangiogram +/- catheter removal in 4W 05/07/16 percutaneous transhepatic cholangiogram, distal CBD stricture biopsy ( benign by pathology), CBD stone removal and internal-external biliary drainage catheter placement by Dr. Centeno 05/06/16 ERCP unable to perform cholangiogram-Reindl to ask IR for CBD stent placement . (4) COPD (chronic obstructive pulmonary disease) Status: Chronic Problem Text: Respiratory status stable. (5) Fever of unknown origin Status: Resolved Problem Text: 05/13 - D8 Vanco, D6 Meropenum. Afebrile. WBC 8.7. D7 vanco (vanco trough 15 05/10)/D5 meropenem 05/12 - Remains afebrile, WBC remains stable, CRP continues to trend down. 05/11 - Tmax 98.9, WBC 10.7, CRP 6.92, all improved c/w 05/10 Pt with Shunt removal yesterday by Dr Kumari, per Dr Lao 2 wk IV Abx prior to shunt replacement. 05/10 Tm 99.8, WBC 13.9 (N 87), CRP 10 (05/09 13), transfer d/w with patient and family who all agree transfer accepted by Dr. Piedra but on waiting list for probably 1-2D-Dr. Kumari aware of wait 05/09 WBC down to 18 (05/08 25K!), unable to obtain LP due to patient discomfort; therefore, Kenyetta repeated shunt tap revealing 17 WBCs, gram stain c G+ cocci in pairs and chains-therefore, case d/w Dr. Lao and Dr. Kumari and it ws decided to transfer patient back to [facility] to exteriorize the shunt given patient has already failed antibiotic trial to clear the SALES ENABLEMENT CONSULTANT shunt (on cefipime 2 q12H, metro 500 q6H and vanco from 03/22/16 x 3W) 05/08 lethargic, febrile and WBC to 25K!-after discussion with ID, started vancomycin and meropenem; blood cultures ordered;favoring SALES ENABLEMENT CONSULTANT shunt as most likely source 05/07 s leukocytosis, but 05/06/15 Tm 101.7 and lethargic 05/05/16 CRP 0.7, ESR 35 05/08/16 BCX x 2 NG 05/03/16 SALES ENABLEMENT CONSULTANT shunt CX 2 S. epidermiditis species-few and moderate-MRI brain pending 05/02/16 - PCR resp panel 05/01/16 BCX x 2/UCX NG (6) Hypertension Status: Chronic (7) Cerebral aneurysm Permanent Comment: s/p ICA/basilar coiling, s/p SALES ENABLEMENT CONSULTANT shunt 2014 Last Edited By: Yoseph Medina MD on May 10, 2016 13:40 Status: Chronic Response to Treatment: Stable (8) Depression Status: Chronic (9) Tobacco use Status: Chronic Problem Text: 7 mg nicotine patch was ordered to help her with cravings. 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 Events since last encounter Pt states the same. Denies SOB or CP. Constitutional: Denies: Chills, Fever Pulmonary: Denies: Dyspnea Cardiovascular: Denies: Chest Pain, Palpitations Gastrointestinal: Denies: Abdominal Pain, Nausea, Vomiting Objective Physical Examination General Exam: Positive: Alert, No Acute Distress Eye Exam: Positive: PERRLA, Negative: Sclera icteric ENT Exam: Positive: Mucous membr. moist/pink, Pharynx Normal Neck Exam: Positive: Supple, Negative: JVD, thyromegaly Chest Exam: Positive: Clear to auscultation, Diminished Heart Exam: Positive: Normal S1, Normal S2, Rate Normal, Regular Rhythm, Negative: Murmurs, Rubs Abdomen Exam: Positive: Normal bowel sounds, Soft, Negative: Hepatospenomegaly, Tenderness Extremity Exam: Positive: Normal pulses, Negative: Clubbing, Cyanosis, Edema Skin Exam: Positive: Nl turgor and temperature, Negative: Breakdown Neuro Exam: Positive: Other (vague in response. ) Psych Exam: Positive: Other (sleepy, confused) Vital Signs/I&O Vital Signs Date Time Temp Pulse Resp B/P Pulse Ox O2 Delivery O2 Flow Rate FiO2 05/13/16 07:16 18 94 05/13/16 06:46 Room Air 05/13/16 06:00 89 130/65 05/13/16 04:00 97.2 05/08/16 14:00 3.0 I&O- Last 24 Hours up to 6 AM 05/13/16 06:00 Intake Total 2480 ml Output Total 559 ml Balance 1921 ml Laboratory Data Labs 24H Laboratory Tests 2 05/13/16 04:29: Blood Urea Nitrogen 6L, Creatinine 0.42L, Sodium Level 143, Potassium Level 3.4L , Chloride Level 106, Carbon Dioxide Level 27, Calcium Level 9.0, Aspartate Amino Transf (AST/SGOT) 12L, Alanine Aminotransferase (ALT/SGPT) 28, Alkaline Phosphatase 104, Total Bilirubin 0.3, Total Protein 6.9, Albumin 2.9L, Albumin/ Globulin Ratio 0.73L, Anion Gap 10, Anisocytosis 1+, Atypical Lymphocytes 2, Basophils (Manual) 4, C-Reactive Protein, Quantitative 2.56H, Eosinophils ( Manual) 4, Glomerular Filtration Rate > 60.0, Lymphocytes (Manual) 38, Monocytes (Manual) 5, Neutrophils 47, Platelet Estimate NORMAL CBC/BMP Laboratory Tests 05/13/16 04:29 Calcium Level 9.0, Aspartate Amino Transf (AST/SGOT) 12 L, Alanine Aminotransferase (ALT/SGPT) 28, Alkaline Phosphatase 104, Total Bilirubin 0.3, Total Protein 6.9, Albumin 2.9 L Microbiology Microbiology 05/08/16 Blood Culture - Preliminary, Resulted No Growth after 72 hours. All specime... 05/08/16 Blood Culture - Preliminary, Resulted No Growth after 72 hours. All specime... 05/10/16 Fungal Smear, Received Pending 05/10/16 Fungal Culture, Received Pending 05/10/16 Gram Stain - Final, Complete 05/10/16 CSF Culture - Final, Complete Staphylococcus Epidermidis 05/09/16 Fungal Smear, Received Pending 05/09/16 Fungal Culture, Received Pending 05/09/16 Gram Stain - Final, Complete 05/09/16 CSF Culture - Final, Complete Staphylococcus Epidermidis 05/03/16 Fungal Smear, Received Pending 05/03/16 Fungal Culture, Received Pending 05/03/16 Gram Stain - Final, Complete 05/03/16 CSF Culture - Final, Complete Staphylococcus Epidermidis Staphylococcus Epidermidis#2 05/10/16 MRSA Screen - Final, Complete 05/10/16 Catheter Tip Culture, Received Pending 05/09/16 Anaerobic Culture - Final, Complete 05/03/16 Anaerobic Culture - Final, Complete Rip Dubois May 13, 2016 07:40 AMELIA RYAN MD May 13, 2016 15:06
[2016-05-13] MEDS: VANCOMYCIN HCL 1,000 MG, VIAL MATE ADAPTER 1 EACH in D5W 250 ML IV SCH (07:46)
[2016-05-13] MEDS: ENOXAPARIN 40 MG/0.4 ML SYRINGE (J1650) SC SCH (07:57)
[2016-05-13] MEDS: OMEPRAZOLE 20 MG CAP PO SCH (07:57)
[2016-05-13] MEDS: ADVAIR DISKUS 250/50 INH PWD INH SCH ×2 (08:07→20:51)
--- NOTE | 2016-05-13 08:32 | RO ---
DATE OF PROCEDURE: 05/10/2016 PREPROCEDURE DIAGNOSIS: Ventriculoperitoneal shunt infection. POSTPROCEDURE DIAGNOSIS: Ventriculoperitoneal shunt infection. PROCEDURE: Exteriorization of ventriculoperitoneal shunt. SURGEON: Hanane Kumari MD DEATH CLAIM CLERK: ANESTHESIA: Local. FINDINGS: Please see my recent hospital records and notes for preoperative evaluation discussions. The patient had a GRAD INTERN shunt placed in [place] recently, which got infected, probably from her peritonitis. She declined in level of her consciousness throughout her stay in the hospital, as she remained confused, lethargic, oriented times two. Her workup showed likely enlarging ventricular system. The shunt would not empty readily, suggesting distal end obstruction, or at least partial obstruction. The shunt was flushed manually several times and that would improve the emptying of the shunt well. On account of her clinical picture, increasing size of the ventricles, fever, and leukocytosis. Tap was done at the request of infectious disease service, which showed Staphylococcus epidermidis. She continued to deteriorate and repeat tap was done, which also was positive. Her shunt is colonized, though her neck was mostly supple. There is no gloria cerebrospinal fluid infection with the presence of prolonged course of antibiotic. Various options of management were discussed with the patient and the family. They understood the grave outlook. They were aware of all options. Scope, expected outcome, sequelae and all complications of the surgery. They understood the complications included , coma, spinal fluid leakage, meningitis, persistence of worsening of symptoms and/or other deficits. Also, all vital body functions, persistent vegetative state, dependency on life support, infection, bleeding or any other catastrophic sequelae. They understood that she will be requiring multiple surgeries and that is without any guarantees. Detailed family conference was held in the preoperative area with several of her family members. After informed consent and the request of the family, infectious disease service and Dr. Medina, the patient was taken to the operating room. The case was also discussed with Dr. Blanton, who asked me to resume her care , which I gladly accepted after discussing with Dr. Medina and the patient's family. DESCRIPTION OF PROCEDURE: The patient was taken to the operating room where the area of surgery was prepped and draped in the usual sterile fashion. External ventricle drainage system was setup. A small stab incision was given near the clavicle where the shunt could be easily palpated. The shunt was identified and it was expressed out of the wound and from the peritoneal cavity. The distal end of the catheter was sent for culture and clear CSF was sent for cultures. The exteriorized ventricle catheter was transected and connected with the external ventricular drainage system and secured with #2-0 silk tie. After closing the wound with one #3-0 Vicryl stitch. The patient tolerated the procedure well and kept on conversing at the request. No obvious change in neurologic status was found. The previous shunt, which was placed in [place], was a medium pressure Hakim valve. The patient will be monitored with serial CSF studies and clinically. Operative findings were discussed with the patient's family in the waiting room. GINGER
[2016-05-13] MEDS ORDERED: SLF 3 ML SYR IV PRN (11:45)
[2016-05-13] MEDS ORDERED: SLF 3 ML SYR IV SCH (14:00)
--- NOTE | 2016-05-13 16:55 | REP ---
Procedure: PICC line insertion with Francheska-Perez The procedure was performed under the direct supervision of Dr. Valenzuela. The risks and benefits of the procedure were explained to the patient and informed consent was obtained. The right basilic vein was localized using ultrasound guidance. The skin was prepped and draped in a sterile fashion. 2% lidocaine was used as a local anesthetic. Using ultrasound guidance the basilic vein was cannulated and a 0.018 guidewire was inserted and advanced to the SVC using fluoroscopic guidance. The needle was removed and a 5.5 Slovak dilator and peel-away sheath was inserted over the guide wire. A 5.5 Slovak dual lumen catheter was cut to length of 41 cm. The dilator was removed and the catheter was inserted over the guide wire with the tip ending in the SVC. The peel-away sheath was removed and the catheter was flushed with heparinized saline as per Hospital protocol. The catheter was affixed to the skin and a sterile dressing was applied. The the patient tolerated the procedure well and there were no immediate complications. 0.2 minutes of fluoro time was utilized for this procedure. Reviewed by ZAKI Solitaroi 05/13/2016 04:37 PSigned by Jayden Valenzuela MD 05/13/2016 04:46 P
[2016-05-13] MEDS: SODIUM CHLORIDE 0.9% INJ 10 ML SYR IV SCH (18:48)
[2016-05-13 19:57] LABS: GLUCOSE CSF 53 MG/DL (40-75)
[2016-05-13] MEDS: NICOTINE 7 MG/24 HR TRANSDERMAL TD SCH (20:25)
[2016-05-13] MEDS: SERTRALINE HCL 50 MG TAB PO SCH (20:26)
[2016-05-13] MEDS: amLODIPine 10 MG TAB PO SCH (20:26)
--- NOTE | 2016-05-13 20:35 | PHACANCOPD ---
PHARMACY VANCOMYCIN DOSING Pt Demographics Demographics Patient Age:70 , Weight:48.700 , Gender: female Adjusted Body Weight Vancomycin Vancomycin Target Ranges: 15-20 mcg/ml Vancomycin Load Y/N: Yes Load Dose Date Time Vancomycin Load Dose: 1.5GM (25mg/kg) Date: 05/08/16 Time: 19:00 Vancomycin Dose Date: 05/09/16. Current Vancomycin Dose: [1GM IV Q12H (08:00)] Intermittent Dosing?: No Labs Micro Microbiology 05/08/16 Blood Culture - Final, Complete NO GROWTH AFTER 5 DAYS 05/08/16 Blood Culture - Final, Complete NO GROWTH AFTER 5 DAYS 05/13/16 Gram Stain, Received Pending 05/13/16 CSF Culture, Received Pending 05/13/16 Fungal Smear, Received Pending 05/13/16 Fungal Culture, Received Pending 05/10/16 Fungal Smear, Received Pending 05/10/16 Fungal Culture, Received Pending 05/10/16 Gram Stain - Final, Complete 05/10/16 CSF Culture - Final, Complete Staphylococcus Epidermidis 05/09/16 Fungal Smear, Received Pending 05/09/16 Fungal Culture, Received Pending 05/09/16 Gram Stain - Final, Complete 05/09/16 CSF Culture - Final, Complete Staphylococcus Epidermidis 05/03/16 Fungal Smear, Received Pending 05/03/16 Fungal Culture, Received Pending 05/03/16 Gram Stain - Final, Complete 05/03/16 CSF Culture - Final, Complete Staphylococcus Epidermidis Staphylococcus Epidermidis#2 05/10/16 MRSA Screen - Final, Complete 05/13/16 Anaerobic Culture, Received Pending 05/10/16 Catheter Tip Culture - Final, Complete Staphylococcus Epidermidis 05/09/16 Anaerobic Culture - Final, Complete 05/03/16 Anaerobic Culture - Final, Complete Creatinine Clearance Date:05/08/16. Creatinine Clearance: [<50 ml/min]. Assessment and Plan Maintaining Current Dose?: No Reason for dose change: Trough too high Pharmacist Note Pharmacist Note 05/13/16: Trough today resulted @ 24.8. I will decrease vancomycin regimen from 1g IV Q12H to 750mg IV Q12H starting 05/14/16 @ 0800, allowing for a 24 hour washout period from the last 1g dose that was given at ~ 0800 this morning. We will continue to aim for a goal trough level maintained at 15-20 mcg/ml. A follow-up trough has been scheduled for 05/15/16 @ 1900, prior to the fourth dose on the new regimen. We will continue to monitor and make further dose adjustments as needed. Date: 05/08/16. Pharm.D. 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 SCR 0.57, CRCL <50 ml/min BUT (>45ml/min). SHE IS TO START MEROPENEM 1GM IV Q8H AT 18:00 THIS EVENING AND WE ARE ASKED TO DOSE HER VANCO WITH A GOAL TROUGH 15- 20 mcg/ml. WE WILL GIVE HER A 1500MG VANCO LOAD STARTING AT 19:00 OVER 2 HOURS FOLLOWED BY VANCO 1GM IV Q12H STARTING AT 08:00 05/09/16. A VANCO TR HAS BEEN ORDERED FOR FRIDAY MORNING WITH AM LAB[facility] PRIOR TO HER 8AM DOSE. JAEL., Pharm.D. [facility] May 13, 2016 20:35
[2016-05-13 20:42] LABS: RBC CSF AUTO 1 /mm3 (0-0); WBC CSF AUTO 6 /mm3 (0-10)
[2016-05-13 20:44] LABS: APPEARANCE, CSF CLEAR (CLEAR); COLOR, CSF COLORLESS (COLORLESS); CSF DIFF IF INDICATED? NO (NO); CSF TUBE# CELL CNT TUBE 1
[2016-05-13 20:45] LABS: CSF DILUENT LOT # 6109
--- NOTE | 2016-05-13 23:41 | IPN ---
DATE: 05/13/2016 Suad was seen in the intensive care unit (ICU). Her daughter, Meri, is at the bedside. She went to the operating room on 05/10/[address] Kumari and had exteriorization of her ventriculoperitoneal shunt. The patient's shunt had been placed in [place] about a year ago in 02/2015. The shunt was malfunctioning, and she had two cultures that had Staphylococcus (staph) epidermidis, and, therefore, it was felt that she had a ventriculoperitoneal (ADMINISTRATIVE PROGRAM SPECIALIST) shunt infection and, therefore, needed treatment with IV antibiotic, exteriorization of the shunt. On 05/08/2016, she had a white count of 24,000, today it was 8.7. The patient denies any headache, fever or chills. She has no nausea or vomiting. Her appetite is fair. Temperature is 98.8, pulse 77, respirations 18, blood pressure 131/80, oxygen saturation 95% on room air. Heart: Normal S1, S2. No murmurs. Lungs are clear. Abdomen is soft, nontender. She still has a cholecystotomy tube that is clamped. Peripherally inserted central catheter (PICC) line was placed today by Dr. Valenzuela. Head CT on 05/11/2016 showed ventricle and sulci being symmetric but prominent in size. Shunt catheter in the right frontal lobe terminating in the frontal horn of the right lateral ventricle. No evidence of hemorrhage or infarct. No midline shift. No acute findings. Moderate stable atrophy. LABORATORY DATA: Catheter tip culture was positive for Staphylococcus epidermidis. Cerebrospinal fluid (CSF) fluid was positive for Staphylococcus epidermidis on 05/10/2016. On 05/09/2016, CSF fluid has also Staphylococcus epidermidis and on 05/03/2016 as well. Fluid analysis had only 17 white cells on 05/09/2016. The day of OR, she has 9 white cells and 15 red cells. On 05/13/2016, she only has 6 white cells, glucose 53, total protein was 37. IMPRESSION: Ventriculoperitoneal shunt infection with Staphylococcus epidermidis, status post exteriorization of the ADMINISTRATIVE PROGRAM SPECIALIST shunt. On IV vancomycin. Meropenem was discontinued. There was no gram negative on cultures. She is currently on 750 mg every 12 hours of vancomycin. She has a peripherally inserted central catheter (PICC) line. She will need IV antibiotics for a total of 2 weeks from the day she had exteriorization of the shunt. Cholecystitis, status post cholecystotomy tube and stenting of the common bile duct. She had an internal-external biliary drainage catheter placement by Dr. Centeno on 05/07/2016, as well as a percutaneous transhepatic cholangiogram and trans-biliary distal common bile duct stricture biopsy. Cholangioplasty and common bile duct stone debris removal was also done and pathology was sent, which showed rare reactive bile duct epithelium with fibrin detached fibrous tissue with chronic inflammatory cells and no malignancy. Cholecystitis with common bile duct stricture. Follow up with Dr. Centeno, Dr. Urbina and Dr. Cornejo. I have discussed the case with Dr. Urbina as the family had multiple questions, whether she would need a cholecystectomy or not. Dr. Urbina does not feel she would need that as the problem will be fixed with stenting of the common bile duct. He will discuss the case with Dr. Centeno as well. History of cerebral aneurysm with bleeding and secondary need for ADMINISTRATIVE PROGRAM SPECIALIST shunt. PLAN: Continue IV vancomycin for a total of 2 weeks and then the patient will need replacement of her ADMINISTRATIVE PROGRAM SPECIALIST shunt. She will need removal of the cholecystotomy tube in the meantime. Dr. Urbina will see the patient in the morning to discuss any procedures which need to be done from a gastrointestinal (GI) standpoint. Continue to monitor CBC, kidney function and vancomycin trough every 2 to 3 days.
[2016-05-14] VITALS (8 sets, daily range): BP systolic 122–143; BP diastolic 59–70
[2016-05-14 04:59] LABS: MEAN CORPUSCULAR HEMOGLOBIN 30.8 pg (27.0-33.0); MEAN CORPUSCULAR HGB CONC 33.3 g/dl (32.0-36.5); MEAN CORPUSCULAR VOLUME 92.3 fl (80.0-96.0); RED CELL DISTRIBUTION WIDTH 14.7 % (11.5-14.5); WHITE BLOOD COUNT 10.4 K/mm3 (4.0-10.0)
[2016-05-14 05:18] LABS: ALBUMIN/GLOBULIN RATIO 0.81 (1.00-1.93); ALKALINE PHOSPHATASE 108 U/L (45-117); ALT/SGPT 26 U/L (12-78); ANION GAP 7 MEQ/L (8-16); AST/SGOT 19 U/L (15-37); BILIRUBIN,TOTAL 0.4 MG/DL (0.2-1.0); BLOOD UREA NITROGEN 9 MG/DL (7-18); CALCIUM LEVEL 9.3 MG/DL (8.8-10.2); CARBON DIOXIDE LEVEL 30 MEQ/L (21-32); CHLORIDE LEVEL 99 MEQ/L (98-107); GLOMERULAR FILTRATION RATE > 60.0 (>39); GLUCOSE, FASTING 87 MG/DL (83-110); POTASSIUM SERUM 3.7 MEQ/L (3.5-5.1); SODIUM LEVEL 136 MEQ/L (136-145); TOTAL PROTEIN 6.7 GM/DL (6.4-8.2)
[2016-05-14 05:23] LABS: BANDS 1 % (< 11); BASOPHILS 2 % (0-4); EOSINOPHILS 5 % (0-5)
[2016-05-14] MEDS: SODIUM CHLORIDE 0.9% INJ 10 ML SYR IV SCH ×2 (06:03→17:32)
[2016-05-14] MEDS: ENOXAPARIN 40 MG/0.4 ML SYRINGE (J1650) SC SCH (08:00)
[2016-05-14] MEDS: VANCOMYCIN HCL 750 MG, VIAL MATE ADAPTER 1 EACH in D5W 250 ML IV SCH ×2 (08:00→20:19)
[2016-05-14] MEDS: OMEPRAZOLE 20 MG CAP PO SCH (08:00)
[2016-05-14] MEDS: ADVAIR DISKUS 250/50 INH PWD INH SCH ×2 (09:00→21:02)
[2016-05-14] MEDS: amLODIPine 10 MG TAB PO SCH (20:18)
[2016-05-14] MEDS: SERTRALINE HCL 50 MG TAB PO SCH (20:18)
[2016-05-14] MEDS: NICOTINE 7 MG/24 HR TRANSDERMAL TD SCH (20:21)
--- NOTE | 2016-05-14 20:22 | IPN ---
DATE: 05/14/2016 BRIEF NOTE: The patient has had an externalized ventriculoperitoneal (AIRCRAFT LAYOUT WORKER) shunt and had improvement of her white count, yesterday it was back to normal and if it was normal today we were planning on removal of her cholecystostomy tube. Unfortunately, it went back up and thus at this point I have discussed with her primary care that we would prefer not to remove the cholecystostomy tube until at least 48 hours of normal white count. After discussing this with primary, I was able to discuss her percutaneous transhepatic cholangiogram catheter with Dr. Centeno and specifically discussed his plan for this tube itself. He would like to keep this in place another couple weeks before repeating cholangiogram. If the cholangiogram shows good flow into the duodenum his plan is to take this out. He also offered to remove the cholecystostomy tube at that time if the bile duct showed no significant abnormalities. Thus the options at this time are to remove the cholecystostomy tube after a few days of normal white count or at the time of the removal of the transhepatic catheter. I do feel that the most likely reason why the cholecystostomy tube was placed, although we do not have the exact information associated with this, is because there was some fluid in the area surrounding the gallbladder. This was actually where the AIRCRAFT LAYOUT WORKER shunt was emptying and I can understand why it would be thought that this may be pericholecystic fluid, also this in general may cause some localized edema of the gallbladder or even thickening of the wall. The patient had been doing poorly and with poor overall status that the recommendation was for a percutaneous cholecystostomy tube given that her source of sepsis/infection was not determined at that time. In any case there, at this point, does not seem to be any cystic duct obstruction, no evidence of gallstones, no evidence of gallbladder sludge, and thus having the cholecystostomy tube in place or even replaced at this point if it should come out is not necessary. Next issue is, I discussed this also with Dr. Cornejo, and his thoughts about performing a combined ERCP with Dr. Centeno placing a wire across the PTC. He says this is a definite option but will await Dr. Centeno's cholangiogram in 2 weeks and if this is normal then would recommend removal of the catheter alone. However, if this shows some abnormalities, some narrowing, then the combined technique could be offered for her, i.e., Dr. Centeno placing a wire across the PTC and Dr. Cornejo doing an ERCP, able to the use that guidewire as a source for placement of his ERCP/papillotomy, etc. Otherwise, from a surgical standpoint, there is no other intervention needed at this time.
[2016-05-15] VITALS (8 sets, daily range): BP systolic 94–137; BP diastolic 56–89
[2016-05-15 04:43] LABS: MEAN CORPUSCULAR HEMOGLOBIN 30.6 pg (27.0-33.0); MEAN CORPUSCULAR HGB CONC 33.1 g/dl (32.0-36.5); MEAN CORPUSCULAR VOLUME 92.3 fl (80.0-96.0); RED CELL DISTRIBUTION WIDTH 13.7 % (11.5-14.5); WHITE BLOOD COUNT 9.2 K/mm3 (4.0-10.0)
[2016-05-15 05:06] LABS: BANDS 1 % (< 11); EOSINOPHILS 3 % (0-5)
[2016-05-15 05:10] LABS: ALBUMIN 3.2 GM/DL (3.2-5.2); ALBUMIN/GLOBULIN RATIO 0.89 (1.00-1.93); ALKALINE PHOSPHATASE 110 U/L (45-117); ALT/SGPT 26 U/L (12-78); ANION GAP 10 MEQ/L (8-16); AST/SGOT 17 U/L (15-37); BILIRUBIN,TOTAL 0.4 MG/DL (0.2-1.0); BLOOD UREA NITROGEN 14 MG/DL (7-18); CALCIUM LEVEL 9.9 MG/DL (8.8-10.2); CARBON DIOXIDE LEVEL 27 MEQ/L (21-32); CHLORIDE LEVEL 102 MEQ/L (98-107); CREATININE FOR GFR 0.65 MG/DL (0.55-1.02); GLUCOSE, FASTING 104 MG/DL (83-110); POTASSIUM SERUM 3.7 MEQ/L (3.5-5.1); SODIUM LEVEL 139 MEQ/L (136-145); TOTAL PROTEIN 6.8 GM/DL (6.4-8.2)
[2016-05-15 05:14] LABS: GLOMERULAR FILTRATION RATE > 60.0 (>39)
[2016-05-15] MEDS: SODIUM CHLORIDE 0.9% INJ 10 ML SYR IV SCH ×2 (05:54→18:05)
[2016-05-15] MEDS: VANCOMYCIN HCL 750 MG, VIAL MATE ADAPTER 1 EACH in D5W 250 ML IV SCH ×2 (07:57→23:35)
[2016-05-15] MEDS: OMEPRAZOLE 20 MG CAP PO SCH (07:57)
[2016-05-15] MEDS: ADVAIR DISKUS 250/50 INH PWD INH SCH ×2 (08:01→21:09)
[2016-05-15] MEDS: ENOXAPARIN 40 MG/0.4 ML SYRINGE (J1650) SC SCH (08:01)
--- NOTE | 2016-05-15 10:14 | IPNPDOC ---
Assessment/Plan Date Seen The patient was seen on 05/15/16. Attending Note: I saw and examined the patient at approximately 7 am this morning and I discussed with KARINE Shore and I agree with her note below. Patient was comfortable this morning and had no complaints. She continues to receive vancomycin with plan to replace PRINCIPAL GIFTS OFFICER shunt next week. Please see Dr. Urbina's note from 05/14/16 for details regarding plan for oscar tube. (KES) Problems Problems: (1) Nonfunctioning ventriculoperitoneal shunt Status: Acute Problem Text: 05/15 - Per Dr. Lao - complete 2 weeks of IV Vanco prior to replacing PRINCIPAL GIFTS OFFICER shunt Dr. Kumari's note suggests repeating CSF culture tomorrow 05/10: The PRINCIPAL GIFTS OFFICER shunt was externalized by neurosurgery tonight because of evidence of infection. ID recommends a minimum of 2 weeks of intravenous antibiotic before new shunt placement is considered. 05/08 normal shunt study, neurosurgery suggests shunt likely colonized, and hopes to treat with abx; prefers LP and culture to directly culturing from shunt 05/06/16 MRI brain s/c mild hydro s change, no obvious infection (meningitis, shuntitis) 05/04/2016: improved function per neurosurgery note. (2) Metabolic encephalopathy Status: Acute Response to Treatment: Stable Problem Text: favor secondary to PRINCIPAL GIFTS OFFICER shunt infection (3) Common bile duct (CBD) obstruction Status: Acute Problem Text: 05/15 - plan to remove the cholecystomy tube at some point - dr. Urbina discussing this with Dr. Centeno and Dr. Cornejo 05/10/16 plan d/w Dr. Centeno-favors repeat cholangiogram +/- catheter removal in 4W 05/07/16 percutaneous transhepatic cholangiogram, distal CBD stricture biopsy ( benign by pathology), CBD stone removal and internal-external biliary drainage catheter placement by Dr. Centeno 05/06/16 ERCP unable to perform cholangiogram-Chantal to ask IR for CBD stent placement . (4) COPD (chronic obstructive pulmonary disease) Status: Chronic Problem Text: Respiratory status stable. (5) Fever of unknown origin Status: Resolved Problem Text: 05/15 - Vanco Day #9 05/13 - D8 Vanco, D6 Meropenum. Afebrile. WBC 8.7. D7 vanco (vanco trough 15 05/10)/D5 meropenem 05/12 - Remains afebrile, WBC remains stable, CRP continues to trend down. 05/11 - Tmax 98.9, WBC 10.7, CRP 6.92, all improved c/w 05/10 Pt with Shunt removal yesterday by Dr Kumari, per Dr Lao 2 wk IV Abx prior to shunt replacement. 05/10 Tm 99.8, WBC 13.9 (N 87), CRP 10 (05/09 13), transfer d/w with patient and family who all agree transfer accepted by Dr. Piedra but on waiting list for probably 1-2D-Dr. Kumari aware of wait 05/09 WBC down to 18 (05/08 25K!), unable to obtain LP due to patient discomfort; therefore, [place] repeated shunt tap revealing 17 WBCs, gram stain c G+ cocci in pairs and chains-therefore, case d/w Dr. Lao and Dr. Kumari and it ws decided to transfer patient back to [facility] to exteriorize the shunt given patient has already failed antibiotic trial to clear the PRINCIPAL GIFTS OFFICER shunt (on cefipime 2 q12H, metro 500 q6H and vanco from 03/22/16 x 3W) 05/08 lethargic, febrile and WBC to 25K!-after discussion with ID, started vancomycin and meropenem; blood cultures ordered;favoring PRINCIPAL GIFTS OFFICER shunt as most likely source 05/07 s leukocytosis, but 05/06/15 Tm 101.7 and lethargic 05/05/16 CRP 0.7, ESR 35 05/08/16 BCX x 2 NG 05/03/16 PRINCIPAL GIFTS OFFICER shunt CX 2 S. epidermiditis species-few and moderate-MRI brain pending 05/02/16 - PCR resp panel 05/01/16 BCX x 2/UCX NG (6) Hypertension Status: Chronic (7) Cerebral aneurysm Permanent Comment: s/p ICA/basilar coiling, s/p PRINCIPAL GIFTS OFFICER shunt 2014 Last Edited By: Yoseph Medina MD on May 10, 2016 13:40 Status: Chronic Response to Treatment: Stable (8) Depression Status: Chronic (9) Tobacco use Status: Chronic Problem Text: 7 mg nicotine patch was ordered to help her with cravings. 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 Events since last encounter Feels better. Eating better. + BMs Constitutional: Denies: Chills, Fever Pulmonary: Denies: Cough, Dyspnea Cardiovascular: Denies: Chest Pain, Orthopnea, Palpitations Gastrointestinal: Reports: Diarrhea (loos BMs this am), Denies: Abdominal Pain, Nausea, Vomiting Objective Physical Examination General Exam: Positive: Alert, No Acute Distress Eye Exam: Positive: PERRLA, Negative: Sclera icteric ENT Exam: Positive: Mucous membr. moist/pink, Pharynx Normal Neck Exam: Positive: Supple, Negative: JVD, thyromegaly Chest Exam: Positive: Clear to auscultation, Diminished Heart Exam: Positive: Normal S1, Normal S2, Rate Normal, Regular Rhythm, Negative: Murmurs, Rubs Abdomen Exam: Positive: Normal bowel sounds, Soft, Negative: Hepatospenomegaly, Tenderness Extremity Exam: Positive: Normal pulses, Negative: Clubbing, Cyanosis, Edema Skin Exam: Positive: Nl turgor and temperature, Negative: Breakdown Neuro Exam: Positive: Other (vague in response. ) Psych Exam: Positive: Other (sleepy, confused) Vital Signs/I&O Vital Signs Date Time Temp Pulse Resp B/P Pulse Ox O2 Delivery O2 Flow Rate FiO2 05/15/16 08:00 97.8 84 18 94/69 95 Room Air I&O- Last 24 Hours up to 6 AM 05/15/16 05:59 Intake Total 1050 ml Output Total 165 ml Balance 885 ml Laboratory Data Labs 24H Laboratory Tests 2 05/15/16 04:32: Blood Urea Nitrogen 14#, Creatinine 0.65#, Sodium Level 139, Potassium Level 3.7 , Chloride Level 102, Carbon Dioxide Level 27, Calcium Level 9.9, Aspartate Amino Transf (AST/SGOT) 17, Alanine Aminotransferase (ALT/SGPT) 26, Alkaline Phosphatase 110, Total Bilirubin 0.4, Total Protein 6.8, Albumin 3.2, Albumin/ Globulin Ratio 0.89L, Anion Gap 10, Atypical Lymphocytes 2, Band Neutrophils 1, C-Reactive Protein, Quantitative 2.09H, Eosinophils (Manual) 3, Glomerular Filtration Rate > 60.0, Lymphocytes (Manual) 31, Monocytes (Manual) 11H, Neutrophils 52, Platelet Estimate INCREASED, Red Blood Cell Morphology NORMAL CBC/BMP Laboratory Tests 05/15/16 04:32 Calcium Level 9.9, Aspartate Amino Transf (AST/SGOT) 17, Alanine Aminotransferase (ALT/SGPT) 26, Alkaline Phosphatase 110, Total Bilirubin 0.4, Total Protein 6.8, Albumin 3.2 Microbiology Microbiology 05/08/16 Blood Culture - Final, Complete NO GROWTH AFTER 5 DAYS 05/08/16 Blood Culture - Final, Complete NO GROWTH AFTER 5 DAYS 05/13/16 Gram Stain - Final, Complete 05/13/16 CSF Culture - Final, Complete Staphylococcus Epidermidis 05/13/16 Fungal Smear, Received Pending 05/13/16 Fungal Culture, Received Pending 05/10/16 Fungal Smear, Received Pending 05/10/16 Fungal Culture, Received Pending 05/10/16 Gram Stain - Final, Complete 05/10/16 CSF Culture - Final, Complete Staphylococcus Epidermidis 05/09/16 Fungal Smear, Received Pending 05/09/16 Fungal Culture, Received Pending 05/09/16 Gram Stain - Final, Complete 05/09/16 CSF Culture - Final, Complete Staphylococcus Epidermidis 05/10/16 MRSA Screen - Final, Complete 05/13/16 Anaerobic Culture - Final, Complete 05/10/16 Catheter Tip Culture - Final, Complete Staphylococcus Epidermidis 05/09/16 Anaerobic Culture - Final, Complete TAMMIE MONAE PA-C May 15, 2016 10:14 AMELIA RYAN MD May 15, 2016 14:36
--- NOTE | 2016-05-15 15:06 | IPN ---
DATE: 05/14/2016 I somehow did not complete a progress note on her yesterday, although the patient was seen and the chart was reviewed. This progress note reflects my examination and the plan for 05/14/2016. Generally, the patient was feeling well. Sitting up in a chair. Eating a little bit better. Feeling a little stronger. No new concerns or complaints. PHYSICAL EXAMINATION: VITAL SIGNS: Blood pressure 125/78, pulse 80, respirations 20, temperature 97.7 , oxygen saturation 95% on room air. GENERAL: Bright, alert, no acute distress. CARDIAC: Regular rate and rhythm. LUNGS: Clear to auscultation bilaterally. ABDOMEN: Soft, nontender. EXTREMITIES: There is no edema. INVESTIGATIONS: Sodium 136, potassium 3.7, BUN 9, creatinine 0.4, glucose 187. White count 10.4, hemoglobin 12.7, platelets 385,000. ASSESSMENT AND PLAN: 1. Nonfunctioning ventriculoperitoneal shunt. The CONTRACT PREPARER shunt was externalized by neurosurgery on 05/10/2016 because of infection. Infectious disease recommends at least two weeks of antibiotics before a new shunt placement can be considered. Dr. Kumari is following the patient for this. She has had a peripherally inserted central catheter (PICC) line placed for intravenous antibiotic administration. 2. Common bile duct obstruction. Dr. Urbina is collaborating with Dr. Cornejo and Dr. Centeno to decide on management of this and Dr. Urbina's notes and recommendations have been read and are appreciated. 3. Metabolic encephalopathy. Her mental status has improved. She is still confused somewhat at baseline, but significantly better than earlier in her hospitalization. Her ammonia level has been normal during the hospitalization, and it is felt that likely her CONTRACT PREPARER shunt situation causes her to have some underlying confusion, but overall she is stable. 4. Deep vein thrombosis (DVT) prophylaxis. She is on Lovenox. DISPOSITION: She will be moved to progressive care unit (PCU) and ultimately the plan is for prison facility (SNF) status once she is medically stable. Attending attestation: I saw and evaluated the patient, and agree with plan of care as discussed and documented above. MD GINGER Raymond
--- NOTE | 2016-05-15 19:02 | IPN ---
DATE: 05/15/2016 The patient is awake and alert, sitting by her bedside chair. She is talkative, ambulating with subtle ataxia. Today she is alert and oriented, has no gross focal motor deficits. Pupils are equal and reactive. Romberg is essentially negative. Her gait is wide-based and has a degree of ataxia. White count today was 9.2. Last shunt tap on May 13 showed staphylococcus epidermis, though the colonies were just a few and no WBCs were seen on her gram stain at this time. All options were discussed with the patient and her family. Also the case was discussed with her primary care physician. I recommend continued serial evaluation of the spinal fluid. Once the cerebrospinal fluid (CSF) is free of polymorphs and has been sterile, left ventriculoperitoneal shunt can be placed depending upon the intraabdominal findings by general surgery service. Until then, I have no further recommendations.
--- NOTE | 2016-05-15 20:15 | PHACANCOPD ---
PHARMACY VANCOMYCIN DOSING Pt Demographics Demographics Patient Age:70 , Weight:48.400 , Gender: female Adjusted Body Weight Events Past 24 Hours Events Past 24 Hours: NO: Change in CrCl, Dialysis, Diuretic Therapy, Elevation in WBC, Fever, Other, Pending Diagnostics, Pending Procedures Vancomycin Vancomycin Target Ranges: 15-20 mcg/ml Vancomycin Load Y/N: Yes Load Dose Date Time Vancomycin Load Dose: 1.5GM (25mg/kg) Date: 05/08/16 Time: 19:00 Vancomycin Dose Date: 05/15/16. CHANGE Current Vancomycin Dose to: 750MG IV Q18H (00:00 05/16/16) ] Intermittent Dosing?: No Labs Labs Laboratory Tests Test 05/10/16 06:06 05/13/16 18:43 05/15/16 18:39 Vancomycin Level Trough 15.0UG/ML (10.0-20.0) 24.8UG/ML (10.0-20.0) 21.9UG/ML (10.0-20.0) Laboratory Tests 05/15/16 04:32 Calcium Level 9.9, Aspartate Amino Transf (AST/SGOT) 17, Alanine Aminotransferase (ALT/SGPT) 26, Alkaline Phosphatase 110, Total Bilirubin 0.4, Total Protein 6.8, Albumin 3.2 Micro Microbiology 05/13/16 CSF Culture - Final, Complete Staphylococcus Epidermidis 05/10/16 CSF Culture - Final, Complete Staphylococcus Epidermidis 05/09/16 CSF Culture - Final, Complete Staphylococcus Epidermidis 05/10/16 Catheter Tip Culture - Final, Complete Staphylococcus Epidermidis Creatinine Clearance Date:05/15/16. Creatinine Clearance: [40 ml/min]. Assessment and Plan Maintaining Current Dose?: No Reason for dose change: Trough too high Pharmacist Note Pharmacist Note Date: 05/15/16. Pharm.D. note: 70YO FEMALE, 61" in HEIGHT, 48.4KG in WEIGHT, INFECTED ANTHROPOLOGY LECTURER SHUNT, MULTIPLE C&S SHOWING STAPH EPI WELL THE CATH TIP. THE STAPH EPIDERMITIS VICKIE = 1 05/15/16: SCR 0.65, CRCL >/= 40 ml/min . SHE RECEIVED A 1500MG VANCO LOAD STARTING AT 19:00 05/08/16 OVER 2 HOURS FOLLOWED BY VANCO 1GM IV Q12H STARTING AT 08:00 05/09/16. ON 05/13 DUE TO A HIGH TROUGH (24.8 mcg/ml) AND A REDUCTION IN REPORTED WEIGHT BY >/=10KG THE DOSE WAS REDUCED TO 750MG IV Q12H A VANCO TR THIS EVENING IS REPORTED = 21.9 mcg/ml (Goal 15-20 mcg/ml). WE WILL CHANGE HER VANCO TO 750 MG IV Q18H STARTING AT 00:00 05/16/16 THIS EVENING. WE WILL FOLLOW UP WITH A REPEAT TROUGH IN A FEW DAYS JAEL., Pharm.D. [facility] May 15, 2016 20:15
[2016-05-15] MEDS: NICOTINE 7 MG/24 HR TRANSDERMAL TD SCH (20:45)
[2016-05-15] MEDS: SERTRALINE HCL 50 MG TAB PO SCH (20:46)
[2016-05-15] MEDS: amLODIPine 10 MG TAB PO SCH (20:46)
[2016-05-15] MEDS: ACETAMINOPHEN TAB 650MG DOSE (2X325MG) PO PRN (20:46)
[2016-05-16] VITALS: BP 117/62
[2016-05-16 04:00] VITALS: BP 150/66
[2016-05-16] MEDS: SODIUM CHLORIDE 0.9% INJ 10 ML SYR IV SCH ×2 (05:42→18:00)
[2016-05-16 06:04] LABS: MEAN CORPUSCULAR HEMOGLOBIN 30.7 pg (27.0-33.0); MEAN CORPUSCULAR HGB CONC 33.3 g/dl (32.0-36.5); MEAN CORPUSCULAR VOLUME 92.3 fl (80.0-96.0); RED CELL DISTRIBUTION WIDTH 13.8 % (11.5-14.5); WHITE BLOOD COUNT 8.5 K/mm3 (4.0-10.0)
[2016-05-16 06:20] LABS: ALBUMIN/GLOBULIN RATIO 0.91 (1.00-1.93); ALKALINE PHOSPHATASE 101 U/L (45-117); ALT/SGPT 24 U/L (12-78); ANION GAP 8 MEQ/L (8-16); AST/SGOT 20 U/L (15-37); BILIRUBIN,TOTAL 0.3 MG/DL (0.2-1.0); BLOOD UREA NITROGEN 13 MG/DL (7-18); CALCIUM LEVEL 9.4 MG/DL (8.8-10.2); CARBON DIOXIDE LEVEL 29 MEQ/L (21-32); CHLORIDE LEVEL 103 MEQ/L (98-107); CREATININE FOR GFR 0.55 MG/DL (0.55-1.02); GLOMERULAR FILTRATION RATE > 60.0 (>39); GLUCOSE, FASTING 95 MG/DL (83-110); POTASSIUM SERUM 3.6 MEQ/L (3.5-5.1); SODIUM LEVEL 140 MEQ/L (136-145); TOTAL PROTEIN 6.3 GM/DL (6.4-8.2)
[2016-05-16] MEDS: ADVAIR DISKUS 250/50 INH PWD INH SCH ×2 (07:59→19:21)
[2016-05-16 08:00] VITALS: BP 117/75
--- NOTE | 2016-05-16 08:35 | IPNPDOC ---
Assessment/Plan Date Seen The patient was seen on 05/16/16. Attending Note: I saw and examined Ms. Murcia today and I d/w KARINE Shore - I agree with her note below. The patient's mental status is stable. I discussed her case with Dr. Kumari yesterday, who recommended serial CSF studies Q3days - once CSF is free of polymorphs, the [employer] shunt can be replaced. We discussed the most appropriate place for the shunt to drain and Dr. Kumari questioned whether cause of the patient's initial abdominal infection and microperforation was every discovered; this abdominal infection likely caused the shunt to become infected, and if she were to be at risk of a recurrent abdominal infection, then it may make more sense for the shunt to drain somewhere other than the abdomen to prevent re-infection of the shunt. I reviewed the records of her last admission here and her discharge summary from [facility] - she had a duodenitis and some inflammation of the terminal ileum noted on her discharge summary but I do not believe that an underlying cause for this was ever discovered. Dr. Kumari mentioned that he was considering having the shunt drain to the pleural space. Ms. Murcia did have pleural effusions during her long hospitalization in February and March requiring thoracostomy, however a chest CT on 05/02/16 shows significant improvement of her pleural effusions, so this may be a possibility. Currently, patient remains on Vancomycin and per nursing, is due to have repeat CSF studies done today - her nurse will d/w Dr. Kumari to determine if these should be drawn. ([facility]) Problems Problems: (1) Nonfunctioning ventriculoperitoneal shunt Status: Acute Problem Text: 05/16 - PEr Dr. Kumari - recommends serial CSF cultures. Once clear, he will replace shunt. Pre Dr. Lao - Continue Vanc x 2 weeks total prior to replacing [employer] shunt 05/15 - Per Dr. Lao - complete 2 weeks of IV Vanco prior to replacing [employer] [facility] shunt Dr. Kumari's note suggests repeating CSF culture tomorrow 05/10: The [employer] shunt was externalized by neurosurgery tonight because of evidence of infection. ID recommends a minimum of 2 weeks of intravenous antibiotic before new shunt placement is considered. 05/08 normal shunt study, neurosurgery suggests shunt likely colonized, and hopes to treat with abx; prefers LP and culture to directly culturing from shunt 05/06/16 MRI brain s/c mild hydro s change, no obvious infection (meningitis, shuntitis) 05/04/2016: improved function per neurosurgery note. (2) Metabolic encephalopathy Status: Acute Response to Treatment: Stable Problem Text: 05/16 - Mental status has improved with externalization of shunt and tx of infection favor secondary to [employer] shunt infection (3) Common bile duct (CBD) obstruction Status: Acute Problem Text: 05/15 - plan to remove the cholecystomy tube at some point - dr. Urbina discussing this with Dr. Centeno and Dr. Cornejo 05/10/16 plan d/w Dr. Centeno-favors repeat cholangiogram +/- catheter removal in 4W 05/07/16 percutaneous transhepatic cholangiogram, distal CBD stricture biopsy ( benign by pathology), CBD stone removal and internal-external biliary drainage catheter placement by Dr. Centeno 05/06/16 ERCP unable to perform cholangiogram-Chantal to ask IR for CBD stent placement . (4) COPD (chronic obstructive pulmonary disease) Status: Chronic Problem Text: Respiratory status stable. (5) Hypertension Status: Chronic (6) Cerebral aneurysm Permanent Comment: s/p ICA/basilar coiling, s/p [employer] shunt 2014 Last Edited By: Yoseph Medina MD on May 10, 2016 13:40 Status: Chronic Response to Treatment: Stable (7) Depression Status: Chronic (8) Tobacco use Status: Chronic Problem Text: 7 mg nicotine patch was ordered to help her with cravings. (9) S/P splenectomy Status: Chronic Response to Treatment: Stable Problem Text: obviously higher sepsis risk Plan / VTE VTE Prophylaxis Ordered?: Yes (Lovenox) Plan Therapy: PT, OT Subjective Review of Systems CC/HPI The patient is a 70-year-old female admitted with a reason for visit of Metabolic Encephalopathy. Events since last encounter No complaints Constitutional: Denies: Chills, Fever Pulmonary: Denies: Cough, Dyspnea Cardiovascular: Denies: Chest Pain, Orthopnea, Palpitations Gastrointestinal: Denies: Abdominal Pain, Constipation, Diarrhea, Nausea, Vomiting Objective Physical Examination General Exam: Positive: Alert, No Acute Distress Eye Exam: Positive: PERRLA, Negative: Sclera icteric ENT Exam: Positive: Mucous membr. moist/pink, Pharynx Normal Neck Exam: Positive: Supple, Negative: JVD, thyromegaly Chest Exam: Positive: Clear to auscultation, Diminished Heart Exam: Positive: Normal S1, Normal S2, Rate Normal, Regular Rhythm, Negative: Murmurs, Rubs Abdomen Exam: Positive: Normal bowel sounds, Soft, Negative: Hepatospenomegaly, Tenderness Extremity Exam: Positive: Normal pulses, Negative: Clubbing, Cyanosis, Edema Skin Exam: Positive: Nl turgor and temperature, Negative: Breakdown Neuro Exam: Positive: Other (vague in response. ) Psych Exam: Positive: Other Vital Signs/I&O Vital Signs Date Time Temp Pulse Resp B/P Pulse Ox O2 Delivery O2 Flow Rate FiO2 05/16/16 04:00 97.9 75 18 150/66 96 Room Air I&O- Last 24 Hours up to 6 AM 05/16/16 06:00 Intake Total 1175 ml Output Total 1485 ml Balance -310 ml Laboratory Data Labs 24H Laboratory Tests 2 05/15/16 18:39: Vancomycin Level Trough 21.9H 05/16/16 05:41: Blood Urea Nitrogen 13, Creatinine 0.55, Sodium Level 140, Potassium Level 3.6, Chloride Level 103, Carbon Dioxide Level 29, Calcium Level 9.4, Aspartate Amino Transf (AST/SGOT) 20, Alanine Aminotransferase (ALT/SGPT) 24, Alkaline Phosphatase 101, Total Bilirubin 0.3, Total Protein 6.3L, Albumin 3.0L, Albumin/ Globulin Ratio 0.91L, Anion Gap 8, C-Reactive Protein, Quantitative 1.43H, Glomerular Filtration Rate > 60.0 CBC/BMP Laboratory Tests 05/16/16 05:41 Calcium Level 9.4, Aspartate Amino Transf (AST/SGOT) 20, Alanine Aminotransferase (ALT/SGPT) 24, Alkaline Phosphatase 101, Total Bilirubin 0.3, Total Protein 6.3 L, Albumin 3.0 L, Red Blood Count 3.98 L, Mean Corpuscular Volume 92.3, Mean Corpuscular Hemoglobin 30.7, Mean Corpuscular Hemoglobin Concent 33.3, Red Cell Distribution Width 13.8 Microbiology Microbiology 05/08/16 Blood Culture - Final, Complete NO GROWTH AFTER 5 DAYS 05/08/16 Blood Culture - Final, Complete NO GROWTH AFTER 5 DAYS 05/13/16 Gram Stain - Final, Complete 05/13/16 CSF Culture - Final, Complete Staphylococcus Epidermidis 05/13/16 Fungal Smear, Received Pending 05/13/16 Fungal Culture, Received Pending 05/10/16 Fungal Smear, Received Pending 05/10/16 Fungal Culture, Received Pending 05/10/16 Gram Stain - Final, Complete 05/10/16 CSF Culture - Final, Complete Staphylococcus Epidermidis 05/09/16 Fungal Smear, Received Pending 05/09/16 Fungal Culture, Received Pending 05/09/16 Gram Stain - Final, Complete 05/09/16 CSF Culture - Final, Complete Staphylococcus Epidermidis 05/10/16 MRSA Screen - Final, Complete 05/13/16 Anaerobic Culture - Final, Complete 05/10/16 Catheter Tip Culture - Final, Complete Staphylococcus Epidermidis 05/09/16 Anaerobic Culture - Final, Complete TAMMIE MONAE PA-C May 16, 2016 08:35 AMELIA RYAN MD May 16, 2016 16:25
[2016-05-16] MEDS: ACETAMINOPHEN TAB 650MG DOSE (2X325MG) PO PRN (09:11)
[2016-05-16] MEDS: OMEPRAZOLE 20 MG CAP PO SCH (09:11)
[2016-05-16] MEDS: ENOXAPARIN 40 MG/0.4 ML SYRINGE (J1650) SC SCH (09:12)
[2016-05-16 12:14] VITALS: BP 104/69
[2016-05-16 16:08] VITALS: BP 167/72
[2016-05-16] MEDS: VANCOMYCIN HCL 750 MG, VIAL MATE ADAPTER 1 EACH in D5W 250 ML IV SCH (18:30)
--- NOTE | 2016-05-16 18:58 | IPN ---
DATE: 05/16/2016 Mrs. Murcia seems to be doing much better. She still in the Intensive Care Unit (ICU). She denies any headache. No nausea, vomiting or diarrhea. No abdominal pain. She feels well. LABORATORY DATA: White count is 8.5, hemoglobin 12.2, hematocrit 36.7, platelets 430. Sodium 140, potassium 3.6, chloride 103, bicarb 29, BUN 13, creatinine 0.5, glucose 95, calcium 9.4, CRP was 13 on admission down to 1.43. Culture from cerebrospinal fluid (CSF) is still positive for staph epidermidis. The number of white cells has dropped from 17 to 6. Culture was taken on 05/13. Anaerobic culture was negative. PHYSICAL EXAMINATION: Temperature is 97.5, pulse 70, respirations 18, blood pressure 167/72, oxygen saturation 96% on room air. Heart: Normal S1-S2. No murmurs. Abdomen is soft, nontender. Right cholecystotomy tube has been closed. No symptoms of cholecystitis. IMPRESSION: 1. Nonfunctioning CSF AUTO DRIVER shunt with CSF infection with staph epidermidis. Cultures remain positive with staph epidermidis. The patient needs to have repeat fluid tap and sent for cell count and culture. If the patient has persistent positive cultures the shunt needs to be removed. Currently it has been exteriorized. 2. Common bile duct obstruction. Cholecystotomy tube will be removed by Dr. Centeno next week. PLAN: Continue intravenous (IV) vancomycin. We will ask Dr. Kumari to send some more fluid for cell count and culture. Currently on vancomycin 750 mg IV every 12 hours.
[2016-05-16 20:00] VITALS: BP 141/70
[2016-05-16 20:53] LABS: RBC CSF AUTO 17 /mm3 (0-0); WBC CSF AUTO 331 /mm3 (0-10)
[2016-05-16 20:54] LABS: APPEARANCE, CSF CLEAR (CLEAR); COLOR, CSF COLORLESS (COLORLESS); CSF DIFF IF INDICATED? YES (NO); CSF TUBE# CELL CNT TUBE 1; GLUCOSE CSF 60 MG/DL (40-75)
[2016-05-16 20:55] LABS: CSF DILUENT LOT # 6109
[2016-05-16] MEDS: NICOTINE 7 MG/24 HR TRANSDERMAL TD SCH (21:59)
[2016-05-16] MEDS: amLODIPine 10 MG TAB PO SCH (22:00)
[2016-05-16] MEDS: SERTRALINE HCL 50 MG TAB PO SCH (22:00)
[2016-05-17] VITALS (14 sets, daily range): BP systolic 109–152; BP diastolic 56–88
[2016-05-17] MEDS: D5W/0.45% SODIUM CHLORIDE 1,000 ML IV SCH ×3 (00:29→20:00)
[2016-05-17 04:19] LABS: MEAN CORPUSCULAR HEMOGLOBIN 30.6 pg (27.0-33.0); MEAN CORPUSCULAR HGB CONC 33.2 g/dl (32.0-36.5); MEAN CORPUSCULAR VOLUME 92.1 fl (80.0-96.0); RED CELL DISTRIBUTION WIDTH 13.8 % (11.5-14.5); WHITE BLOOD COUNT 8.4 K/mm3 (4.0-10.0)
[2016-05-17 04:39] LABS: ALBUMIN/GLOBULIN RATIO 0.83 (1.00-1.93); ALKALINE PHOSPHATASE 91 U/L (45-117); ALT/SGPT 23 U/L (12-78); ANION GAP 6 MEQ/L (8-16); AST/SGOT 18 U/L (15-37); BILIRUBIN,TOTAL 0.3 MG/DL (0.2-1.0); BLOOD UREA NITROGEN 11 MG/DL (7-18); CARBON DIOXIDE LEVEL 31 MEQ/L (21-32); CHLORIDE LEVEL 100 MEQ/L (98-107); CREATININE FOR GFR 0.57 MG/DL (0.55-1.02); GLOMERULAR FILTRATION RATE > 60.0 (>39); GLUCOSE, FASTING 99 MG/DL (83-110); POTASSIUM SERUM 3.1 MEQ/L (3.5-5.1); SODIUM LEVEL 137 MEQ/L (136-145); TOTAL PROTEIN 6.6 GM/DL (6.4-8.2)
[2016-05-17] MEDS: SODIUM CHLORIDE 0.9% INJ 10 ML SYR IV SCH ×2 (05:20→17:56)
[2016-05-17] MEDS: ONDANSETRON 4MG/2ML VIAL (J2405) IV PRN (06:47)
[2016-05-17] MEDS ORDERED: ISOVUE-370 76% 100ML VIAL (Q9967) As Ordered ONE (08:00)
[2016-05-17] MEDS: OMEPRAZOLE 20 MG CAP PO SCH (08:54)
[2016-05-17] MEDS: ENOXAPARIN 40 MG/0.4 ML SYRINGE (J1650) SC SCH (08:54)
[2016-05-17] MEDS: ADVAIR DISKUS 250/50 INH PWD INH SCH ×2 (09:00→23:38)
--- NOTE | 2016-05-17 09:59 | IPNPDOC ---
Assessment/Plan Date Seen The patient was seen on 05/17/16. Attending Note: I saw and examined the patient; I d/w Tammie Monae and I agree with her note below. I d/w nurse and patient's daughter and brother. Per nurse, Dr. Kumari plans to remove the [employer] E[employer] DES[employer] shunt today due to colonization; Dr. Lao saw the patient today and based on most recent CSF cultures, it seems that infection is ongoing and may not be able to be cleared without the shunt being removed. The family wished to discuss the risks and benefits of shunt removal - I discussed this in vague terms but I counseled them to direct more detailed questions to Dr. Kumari. Continue management of infection per Dr. Lao and Dr. Kumari. ([facility]) Problems Problems: (1) Nonfunctioning ventriculoperitoneal shunt Status: Acute Problem Text: 05/17 - Dr. Lao's not appreciated. F/U CSF cultures sent and pending continue Vanco x 2 weeks total 05/16 - PEr Dr. Kumari - recommends serial CSF cultures. Once clear, he will replace shunt. Pre Dr. Lao - Continue Vanc x 2 weeks total prior to replacing [employer] shunt 05/15 - Per Dr. Lao - complete 2 weeks of IV Vanco prior to replacing [employer] shunt Dr. Kumari's note suggests repeating CSF culture tomorrow 05/10: The [employer] shunt was externalized by neurosurgery tonight because of evidence of infection. ID recommends a minimum of 2 weeks of intravenous antibiotic before new shunt placement is considered. 05/08 normal shunt study, neurosurgery suggests shunt likely colonized, and hopes to treat with abx; prefers LP and culture to directly culturing from shunt 05/06/16 MRI brain s/c mild hydro s change, no obvious infection (meningitis, shuntitis) 05/04/2016: improved function per neurosurgery note. (2) Metabolic encephalopathy Status: Acute Response to Treatment: Stable Problem Text: 05/17 - mental status improved - up in chair, alert a little vague but at baseline 05/16 - Mental status has improved with externalization of shunt and tx of infection favor secondary to [employer] shunt infection (3) Common bile duct (CBD) obstruction Status: Acute Problem Text: 05/17 Dr. Centeno to remove cholecystostomy tube next week 05/15 - plan to remove the cholecystomy tube at some point - dr. Urbina discussing this with Dr. Centeno and Dr. Cornejo 05/10/16 plan d/w Dr. Centeno-favors repeat cholangiogram +/- catheter removal in 4W 05/07/16 percutaneous transhepatic cholangiogram, distal CBD stricture biopsy ( benign by pathology), CBD stone removal and internal-external biliary drainage catheter placement by Dr. Centeno 05/06/16 ERCP unable to perform cholangiogram-Chantal to ask IR for CBD stent placement . (4) COPD (chronic obstructive pulmonary disease) Status: Chronic Problem Text: Respiratory status stable. (5) Hypertension Status: Chronic (6) Cerebral aneurysm Permanent Comment: s/p ICA/basilar coiling, s/p [employer] shunt 2014 Last Edited By: Yoseph Medina MD on May 10, 2016 13:40 Status: Chronic Response to Treatment: Stable (7) Depression Status: Chronic (8) Tobacco use Status: Chronic Problem Text: 7 mg nicotine patch was ordered to help her with cravings. (9) S/P splenectomy Status: Chronic Response to Treatment: Stable Problem Text: obviously higher sepsis risk Plan / VTE VTE Prophylaxis Ordered?: Yes (Lovenox) Plan Therapy: PT, OT Subjective Review of Systems CC/HPI The patient is a 70-year-old female admitted with a reason for visit of Metabolic Encephalopathy. Events since last encounter No new concerns or complaints Constitutional: Denies: Chills, Fever Pulmonary: Denies: Cough, Dyspnea Cardiovascular: Denies: Chest Pain, Orthopnea, Palpitations Gastrointestinal: Denies: Abdominal Pain, Nausea, Vomiting Objective Physical Examination General Exam: Positive: Alert, No Acute Distress Eye Exam: Positive: PERRLA, Negative: Sclera icteric ENT Exam: Positive: Mucous membr. moist/pink, Pharynx Normal Neck Exam: Positive: Supple, Negative: JVD, thyromegaly Chest Exam: Positive: Clear to auscultation, Diminished Heart Exam: Positive: Normal S1, Normal S2, Rate Normal, Regular Rhythm, Negative: Murmurs, Rubs Abdomen Exam: Positive: Normal bowel sounds, Soft, Negative: Hepatospenomegaly, Tenderness Extremity Exam: Positive: Normal pulses, Negative: Clubbing, Cyanosis, Edema Skin Exam: Positive: Nl turgor and temperature, Negative: Breakdown Neuro Exam: Positive: Other (vague in response. ) Psych Exam: Positive: Other Vital Signs/I&O Vital Signs Date Time Temp Pulse Resp B/P Pulse Ox O2 Delivery O2 Flow Rate FiO2 05/17/16 08:00 98.3 60 18 123/58 94 Room Air I&O- Last 24 Hours up to 6 AM 05/17/16 05:59 Intake Total 2275 ml Output Total 708 ml Balance 1567 ml Laboratory Data Labs 24H Laboratory Tests 2 05/16/16 20:08: CSF Appearance CLEAR, CSF Cell Count Tube # TUBE 1, CSF Color COLORLESS, CSF Eosinophils % 0.0, CSF Glucose 60, CSF Lymphocytes % 24.0H, CSF Monocytes % 46.0H, CSF Neutrophils % 30.0H, CSF RBC 17H, CSF Total Protein 39.3, CSF Tube Number TUBE 1, CSF WBC 331H 05/17/16 03:59: Blood Urea Nitrogen 11, Creatinine 0.57, Sodium Level 137, Potassium Level 3.1L , Chloride Level 100, Carbon Dioxide Level 31, Calcium Level 9.0, Aspartate Amino Transf (AST/SGOT) 18, Alanine Aminotransferase (ALT/SGPT) 23, Alkaline Phosphatase 91, Total Bilirubin 0.3, Total Protein 6.6, Albumin 3.0L, Albumin/ Globulin Ratio 0.83L, Anion Gap 6L, C-Reactive Protein, Quantitative 1.07H, Glomerular Filtration Rate > 60.0 CBC/BMP Laboratory Tests 05/17/16 03:59 Calcium Level 9.0, Aspartate Amino Transf (AST/SGOT) 18, Alanine Aminotransferase (ALT/SGPT) 23, Alkaline Phosphatase 91, Total Bilirubin 0.3, Total Protein 6.6, Albumin 3.0 L, Red Blood Count 3.79 L, Mean Corpuscular Volume 92.1, Mean Corpuscular Hemoglobin 30.6, Mean Corpuscular Hemoglobin Concent 33.2, Red Cell Distribution Width 13.8 Microbiology Microbiology 05/08/16 Blood Culture - Final, Complete NO GROWTH AFTER 5 DAYS 05/08/16 Blood Culture - Final, Complete NO GROWTH AFTER 5 DAYS 05/16/16 Fungal Smear, Received Pending 05/16/16 Fungal Culture, Received Pending 05/16/16 Gram Stain - Final, Resulted 05/16/16 CSF Culture, Resulted Pending 05/13/16 Gram Stain - Final, Complete 05/13/16 CSF Culture - Final, Complete Staphylococcus Epidermidis 05/13/16 Fungal Smear, Received Pending 05/13/16 Fungal Culture, Received Pending 05/10/16 Fungal Smear, Received Pending 05/10/16 Fungal Culture, Received Pending 05/10/16 Gram Stain - Final, Complete 05/10/16 CSF Culture - Final, Complete Staphylococcus Epidermidis 05/09/16 Fungal Smear, Received Pending 05/09/16 Fungal Culture, Received Pending 05/09/16 Gram Stain - Final, Complete 05/09/16 CSF Culture - Final, Complete Staphylococcus Epidermidis 05/10/16 MRSA Screen - Final, Complete 05/16/16 Anaerobic Culture, Received Pending 05/13/16 Anaerobic Culture - Final, Complete 05/10/16 Catheter Tip Culture - Final, Complete Staphylococcus Epidermidis 05/09/16 Anaerobic Culture - Final, Complete TAMMIE MONAE PA-C May 17, 2016 09:59 AMELIA RYAN MD May 17, 2016 14:25
--- NOTE | 2016-05-17 11:12 | REP ---
CT BRAIN WITHOUT AND WITH CONTRAST: 05/17/2016. Comparison: 05/11/2016, 05/04/[address], MRI brain 05/08/2016. Clinical history: Metabolic encephalopathy. Ventriculostomy with shunt infection. Technique: Noncontrast images followed by infusion of 75 mL of Isovue 370 with rescanning. Findings: Right frontal ventriculostomy drain is seen extending into the frontal horn of the right lateral ventricle. The biventricular diameter measures 40.6 mm today, it was 35.2 mm on 05/11/2016 and 41.9 mm on 05/04/2016. The third ventricle today has a transverse diameter of 14 mm, previously 10.5 mm and 17.6 mm on those two prior studies. Ventriculomegaly is increased and is similar to the study 2 weeks ago. Fourth ventricle is mildly prominent but unchanged. Periventricular low density white matter change bilaterally representing chronic small vessel ischemic changes of aging. As on the dramatic arts historian images, there are coils in the region of the [place] giving metallic spray artifact from treatment of aneurysm. After contrast administration, I did not see abnormal enhancement of the ventricles. There was no abnormal meningeal enhancement, gyriform enhancement, enhancing mass or vascular lesion visible. Posterior fossa shows the brainstem and cerebellum intact. Basal cisterns intact. Mastoids and visualized sinuses are clear. The skull base and calvarium are without focal lesion. Impression: 1. Status post aneurysm coiling about the [place] with two separate coils and with ventriculostomy drain into the right frontal horn of the lateral ventricles. Somewhat increased hydrocephalus compared to the previous study, more similar to that of the study 2 weeks ago in diameters of the frontal horns and third ventricle. No other interval change. Signed by Anthony Eason MD 05/17/2016 04:42 P
[2016-05-17] MEDS: VANCOMYCIN HCL 750 MG, VIAL MATE ADAPTER 1 EACH in D5W 250 ML IV SCH (12:00)
--- NOTE | 2016-05-17 13:21 | IPN ---
DATE: 05/17/2016 Mrs. Murcia seems to be doing well. She denies any nausea or vomiting. She has some abdominal pain in the right lower quadrant. No headaches or fever or chills. Yesterday, her shunt was tapped again and cerebrospinal fluid (CSF) was sent. There were 331 white cells, 17 red cells, 30 neutrophils, 24 lymphocytes, 46 monocytes. Culture is pending, but gram stain had many gram positive cocci in pairs and clusters. On physical exam, temperature is 98.3, pulse 60, respirations 18, blood pressure 123/58, oxygen saturation 94% on room air. Heart normal, S1, S2. No murmurs. Lungs are clear. No wheezes or rhonchi. Abdomen is soft, mildly tender in the right lower quadrant. Cholecystotomy tube in place. Back: No costovertebral angle (CVA) tenderness. Extremities: No clubbing, cyanosis, edema. No calf tenderness. Neck is supple. Ventriculoperitoneal (RESIDENTIAL LEASING MANAGER) shunt is externalized at the right chest wall. There is slight erythema at the site. IMPRESSION: 1. Ventriculoperitoneal shunt infection. Culture positive for Staphylococcus epidermidis. Shunt will be removed today. The patient will continue with intravenous (IV) vancomycin for at least 10 days from today and then repeat lumbar puncture will be done before new RESIDENTIAL LEASING MANAGER shunt could be placed. If cell count is negative and culture is negative, then a new RESIDENTIAL LEASING MANAGER shunt could be placed if the patient is RESIDENTIAL LEASING MANAGER shunt dependent. We will have to see with her clinical course whether she really needs a new RESIDENTIAL LEASING MANAGER shunt or that could be completely discontinued. 2. History of hydrocephalus and subarachnoid hemorrhage. We will have to see clinically if she is RESIDENTIAL LEASING MANAGER shunt dependent. 3. Cholecystitis. Seems to have improved. PLAN: Patient going to the operating room today. Case has been discussed with Dr. Kumari. RESIDENTIAL LEASING MANAGER shunt will be removed. Continue IV vancomycin. The patient has colonization of her RESIDENTIAL LEASING MANAGER shunt as she has normal CSF chemistries and CSF cultures are positive for coagulase negative staphylococcus. So if the device is removed in the setting of normal CSF chemistries and only cultures positive for coag-negative staph the shunt may be replaced if cultures are negative on the third day after removal. So if the patient is RESIDENTIAL LEASING MANAGER shunt dependent a new shunt can be placed after repeat lumbar puncture. It needs to be done within 3-4 days after shunt is removed. So the decision will depend on if the patient needs a RESIDENTIAL LEASING MANAGER shunt will need to repeat lumbar puncture done next week and document a sterile CSF prior to RESIDENTIAL LEASING MANAGER shunt replacement. Her CSF glucose from yesterday was 60 and total protein was 39, and all previous CSF chemistries have been also normal. 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 Edited: 05/17/2016 1326 suze
[2016-05-17] MEDS ORDERED: POTASSIUM CHLORIDE 10 MEQ SR TABLET PO ONE (19:00)
[2016-05-17] MEDS ORDERED: LIDOCAINE W/EPINEPHRINE 1% 20ML VIAL As Ordered ONE (19:58)
[2016-05-17] MEDS ORDERED: THROMBIN SOLN 20,000 UNITS KIT As Ordered ONE (19:59)
[2016-05-17] MEDS ORDERED: BACITRACIN PWD 50,000 UNITS VIAL As Ordered ONE (19:59)
[2016-05-17] MEDS ORDERED: MIDAZOLAM INJ 2 MG/2 ML VIAL (J2250) As Ordered ONE (20:08)
[2016-05-17] MEDS ORDERED: fentaNYL 100 MCG/2 ML INJECTION (J3010) As Ordered ONE (20:09)
[2016-05-17] MEDS ORDERED: PROPOFOL 200 MG/20 ML VIAL As Ordered ONE (20:10)
[2016-05-17] MEDS ORDERED: LIDOCAINE 2% INJ 100 MG/5 ML SDV (FOR ANES.) As Ordered ONE (20:10)
[2016-05-17] MEDS ORDERED: ONDANSETRON 4MG/2ML VIAL (J2405) IV PRN (22:00)
[2016-05-17] MEDS ORDERED: fentaNYL 100 MCG/2 ML INJECTION (J3010) IV PRN (22:00)
[2016-05-17] MEDS ORDERED: LR 1,000 ML IV SCH (22:00)
[2016-05-17] MEDS: NICOTINE 7 MG/24 HR TRANSDERMAL TD SCH (23:29)
[2016-05-17] MEDS: SERTRALINE HCL 50 MG TAB PO SCH (23:29)
[2016-05-17] MEDS: amLODIPine 10 MG TAB PO SCH (23:29)
[2016-05-18] VITALS (14 sets, daily range): BP systolic 110–142; BP diastolic 55–68
[2016-05-18 04:42] LABS: MEAN CORPUSCULAR HEMOGLOBIN 30.4 pg (27.0-33.0); MEAN CORPUSCULAR HGB CONC 32.4 g/dl (32.0-36.5); MEAN CORPUSCULAR VOLUME 93.9 fl (80.0-96.0); RED CELL DISTRIBUTION WIDTH 13.6 % (11.5-14.5); WHITE BLOOD COUNT 8.2 K/mm3 (4.0-10.0)
[2016-05-18 05:01] LABS: ALBUMIN 2.8 GM/DL (3.2-5.2); ALBUMIN/GLOBULIN RATIO 0.82 (1.00-1.93); ALKALINE PHOSPHATASE 85 U/L (45-117); ALT/SGPT 20 U/L (12-78); ANION GAP 8 MEQ/L (8-16); AST/SGOT 16 U/L (15-37); BILIRUBIN,TOTAL 0.4 MG/DL (0.2-1.0); BLOOD UREA NITROGEN 8 MG/DL (7-18); CALCIUM LEVEL 8.8 MG/DL (8.8-10.2); CARBON DIOXIDE LEVEL 29 MEQ/L (21-32); CHLORIDE LEVEL 103 MEQ/L (98-107); CREATININE FOR GFR 0.55 MG/DL (0.55-1.02); GLOMERULAR FILTRATION RATE > 60.0 (>39); GLUCOSE, FASTING 109 MG/DL (83-110); POTASSIUM SERUM 3.3 MEQ/L (3.5-5.1); SODIUM LEVEL 140 MEQ/L (136-145); TOTAL PROTEIN 6.2 GM/DL (6.4-8.2)
[2016-05-18] MEDS: SODIUM CHLORIDE 0.9% INJ 10 ML SYR IV SCH ×2 (05:57→17:50)
[2016-05-18] MEDS: D5W/0.45% SODIUM CHLORIDE 1,000 ML IV SCH (05:58)
[2016-05-18] MEDS: VANCOMYCIN HCL 750 MG, VIAL MATE ADAPTER 1 EACH in D5W 250 ML IV SCH (05:58)
[2016-05-18] MEDS: ACETAMINOPHEN TAB 650MG DOSE (2X325MG) PO PRN (07:05)
[2016-05-18] MEDS: ADVAIR DISKUS 250/50 INH PWD INH SCH ×2 (08:50→21:15)
[2016-05-18] MEDS: OMEPRAZOLE 20 MG CAP PO SCH (09:16)
[2016-05-18] MEDS: ENOXAPARIN 40 MG/0.4 ML SYRINGE (J1650) SC SCH (09:17)
--- NOTE | 2016-05-18 10:31 | IPNPDOC ---
Assessment/Plan Date Seen The patient was seen on 05/18/16. Problems Problems: (1) Nonfunctioning ventriculoperitoneal shunt Status: Acute Problem Text: 05/18 - Persistently positive CSF cultures - LAYOUT INSPECTOR shunt removed yesterday Continue IV Vanco x 10 days and then repeat LP. At that time - Neurosurgery will determine if liberty shunt needs to be replaced and if the infection has cleared so they can do so. 05/17 - Dr. Lao's not appreciated. F/U CSF cultures sent and pending continue Vanco x 2 weeks total 05/16 - PEr Dr. Kumari - recommends serial CSF cultures. Once clear, he will replace shunt. Pre Dr. Lao - Continue Vanc x 2 weeks total prior to replacing LAYOUT INSPECTOR shunt 05/15 - Per Dr. Lao - complete 2 weeks of IV Vanco prior to replacing LAYOUT INSPECTOR shunt Dr. Kumari's note suggests repeating CSF culture tomorrow 05/10: The LAYOUT INSPECTOR shunt was externalized by neurosurgery tonight because of evidence of infection. ID recommends a minimum of 2 weeks of intravenous antibiotic before new shunt placement is considered. 05/08 normal shunt study, neurosurgery suggests shunt likely colonized, and hopes to treat with abx; prefers LP and culture to directly culturing from shunt 05/06/16 MRI brain s/c mild hydro s change, no obvious infection (meningitis, shuntitis) 05/04/2016: improved function per neurosurgery note. (2) Metabolic encephalopathy Status: Acute Response to Treatment: Stable Problem Text: 05/18 - mental status stable 2/3 - mental status improved - up in chair, alert a little vague but at baseline 2/2 - Mental status has improved with externalization of shunt and tx of infection favor secondary to LAYOUT INSPECTOR shunt infection (3) Common bile duct (CBD) obstruction Status: Acute Problem Text: 05/17 Dr. Centeno to remove cholecystostomy tube next week 05/15 - plan to remove the cholecystomy tube at some point - dr. Urbina discussing this with Dr. Centeno and Dr. Cornejo 05/10/16 plan d/w Dr. Centeno-favors repeat cholangiogram +/- catheter removal in 4W 05/07/16 percutaneous transhepatic cholangiogram, distal CBD stricture biopsy ( benign by pathology), CBD stone removal and internal-external biliary drainage catheter placement by Dr. Centeno 05/06/16 ERCP unable to perform cholangiogram-Reindl to ask IR for CBD stent placement . (4) COPD (chronic obstructive pulmonary disease) Status: Chronic Problem Text: Respiratory status stable. (5) Hypertension Status: Chronic (6) Cerebral aneurysm Permanent Comment: s/p ICA/basilar coiling, s/p LAYOUT INSPECTOR shunt 2014 Last Edited By: Yoseph Medina MD on May 10, 2016 13:40 Status: Chronic Response to Treatment: Stable (7) Depression Status: Chronic (8) Tobacco use Status: Chronic Problem Text: 7 mg nicotine patch was ordered to help her with cravings. (9) S/P splenectomy Status: Chronic Response to Treatment: Stable Problem Text: obviously higher sepsis risk Plan / VTE VTE Prophylaxis Ordered?: Yes (Lovenox) Plan Therapy: PT, OT Subjective Review of Systems CC/HPI The patient is a 70-year-old female admitted with a reason for visit of Metabolic Encephalopathy. Events since last encounter Patient had a headache this am - resolved now Constitutional: Denies: Chills, Fever Pulmonary: Denies: Cough, Dyspnea Cardiovascular: Denies: Chest Pain, Palpitations Gastrointestinal: Denies: Abdominal Pain, Constipation, Diarrhea, Nausea, Vomiting Objective Physical Examination General Exam: Positive: Alert, No Acute Distress Eye Exam: Positive: PERRLA, Negative: Sclera icteric ENT Exam: Positive: Mucous membr. moist/pink, Pharynx Normal Neck Exam: Positive: Supple, Negative: JVD, thyromegaly Chest Exam: Positive: Clear to auscultation, Diminished Heart Exam: Positive: Normal S1, Normal S2, Rate Normal, Regular Rhythm, Negative: Murmurs, Rubs Abdomen Exam: Positive: Normal bowel sounds, Soft, Negative: Hepatospenomegaly, Tenderness Extremity Exam: Positive: Normal pulses, Negative: Clubbing, Cyanosis, Edema Skin Exam: Positive: Nl turgor and temperature, Negative: Breakdown Neuro Exam: Positive: Other (vague in response. ) Psych Exam: Positive: Other Vital Signs/I&O Vital Signs Date Time Temp Pulse Resp B/P Pulse Ox O2 Delivery O2 Flow Rate FiO2 05/18/16 06:00 60 18 137/62 95 Room Air 05/18/16 00:00 98.0 I&O- Last 24 Hours up to 6 AM 05/18/16 06:00 Intake Total 2830 ml Output Total 1300 ml Balance 1530 ml Laboratory Data Labs 24H Laboratory Tests 2 05/18/16 04:13: Blood Urea Nitrogen 8, Creatinine 0.55, Sodium Level 140, Potassium Level 3.3L, Chloride Level 103, Carbon Dioxide Level 29, Calcium Level 8.8, Aspartate Amino Transf (AST/SGOT) 16, Alanine Aminotransferase (ALT/SGPT) 20, Alkaline Phosphatase 85, Total Bilirubin 0.4, Total Protein 6.2L, Albumin 2.8L, Albumin/ Globulin Ratio 0.82L, Anion Gap 8, Glomerular Filtration Rate > 60.0 CBC/BMP Laboratory Tests 05/18/16 04:13 Calcium Level 8.8, Aspartate Amino Transf (AST/SGOT) 16, Alanine Aminotransferase (ALT/SGPT) 20, Alkaline Phosphatase 85, Total Bilirubin 0.4, Total Protein 6.2 L, Albumin 2.8 L, Red Blood Count 3.64 L, Mean Corpuscular Volume 93.9, Mean Corpuscular Hemoglobin 30.4, Mean Corpuscular Hemoglobin Concent 32.4, Red Cell Distribution Width 13.6 Microbiology Microbiology 05/08/16 Blood Culture - Final, Complete NO GROWTH AFTER 5 DAYS 05/08/16 Blood Culture - Final, Complete NO GROWTH AFTER 5 DAYS 05/17/16 Gram Stain - Final, Resulted 05/17/16 CSF Culture, Resulted Pending 05/16/16 Fungal Smear, Received Pending 05/16/16 Fungal Culture, Received Pending 05/16/16 Gram Stain - Final, Complete 05/16/16 CSF Culture - Final, Complete Staphylococcus Epidermidis 05/13/16 Gram Stain - Final, Complete 05/13/16 CSF Culture - Final, Complete Staphylococcus Epidermidis 05/13/16 Fungal Smear, Received Pending 05/13/16 Fungal Culture, Received Pending 05/10/16 Fungal Smear, Received Pending 05/10/16 Fungal Culture, Received Pending 05/10/16 Gram Stain - Final, Complete 05/10/16 CSF Culture - Final, Complete Staphylococcus Epidermidis 05/09/16 Fungal Smear, Received Pending 05/09/16 Fungal Culture, Received Pending 05/09/16 Gram Stain - Final, Complete 05/09/16 CSF Culture - Final, Complete Staphylococcus Epidermidis 05/10/16 MRSA Screen - Final, Complete 05/16/16 Anaerobic Culture - Final, Complete 05/13/16 Anaerobic Culture - Final, Complete 05/10/16 Catheter Tip Culture - Final, Complete Staphylococcus Epidermidis 05/09/16 Anaerobic Culture - Final, Complete TAMMIE MONAE PA-C May 18, 2016 10:31
--- NOTE | 2016-05-18 11:09 | REP ---
CT BRAIN WITHOUT CONTRAST: HISTORY: Follow-up. Comparison is made with CT study from May 17, 2016, May 11, 2016, and May 04, 2016. FINDINGS: The right ventriculostomy tube has been removed in the interval since yesterday's CT study. There is air within the now removed ventriculostomy tract through the right frontal horn and right frontal lobe. There is a small air-fluid level in the anterior aspect of the frontal horn of the right lateral ventricle. The lateral and third ventricles are dilated. The third ventricle measures 16 mm in greatest transverse dimension today, 14 mm yesterday. The right to left dimension of the lateral ventricles at the frontal horn level is 44 mm today, 41 mm yesterday. The temporal horns remain somewhat dilated unchanged. Fourth ventricle is unchanged. No midline shift is seen. [place] artifact is again seen emanating from a previously positioned coils at the skull base. IMPRESSION: The right ventriculostomy tube has been removed with a small quantity of air in the right lateral ventricle. The third and lateral ventricles are slightly increased in size. Signed by Jayden Valenzuela MD 05/18/2016 11:21 A
[2016-05-18] MEDS: POTASSIUM CHLORIDE 10 MEQ SR TABLET PO SCH ×2 (11:58→20:24)
[2016-05-18] MEDS ORDERED: SODIUM CHLORIDE 0.9% INJ 10 ML SYR IV PRN (14:00)
[2016-05-18] MEDS ORDERED: SODIUM CHLORIDE 0.9% INJ 10 ML SYR IV SCH (18:00)
[2016-05-18] MEDS: NICOTINE 7 MG/24 HR TRANSDERMAL TD SCH (20:25)
[2016-05-18] MEDS: amLODIPine 10 MG TAB PO SCH (20:25)
[2016-05-18] MEDS: SERTRALINE HCL 50 MG TAB PO SCH (20:25)
[2016-05-19] VITALS (13 sets, daily range): BP systolic 114–149; BP diastolic 57–67
[2016-05-19] MEDS: VANCOMYCIN HCL 750 MG, VIAL MATE ADAPTER 1 EACH in D5W 250 ML IV SCH ×2 (00:20→18:17)
[2016-05-19] MEDS: SODIUM CHLORIDE 0.9% INJ 10 ML SYR IV SCH ×2 (04:55→18:17)
[2016-05-19 05:43] LABS: MEAN CORPUSCULAR HEMOGLOBIN 30.4 pg (27.0-33.0); MEAN CORPUSCULAR HGB CONC 32.5 g/dl (32.0-36.5); MEAN CORPUSCULAR VOLUME 93.3 fl (80.0-96.0); WHITE BLOOD COUNT 8.3 K/mm3 (4.0-10.0)
[2016-05-19 06:08] LABS: ALBUMIN 2.8 GM/DL (3.2-5.2); ALBUMIN/GLOBULIN RATIO 0.82 (1.00-1.93); ALKALINE PHOSPHATASE 82 U/L (45-117); ALT/SGPT 23 U/L (12-78); ANION GAP 10 MEQ/L (8-16); AST/SGOT 18 U/L (15-37); BILIRUBIN,TOTAL 0.3 MG/DL (0.2-1.0); BLOOD UREA NITROGEN 9 MG/DL (7-18); CALCIUM LEVEL 8.9 MG/DL (8.8-10.2); CARBON DIOXIDE LEVEL 27 MEQ/L (21-32); CHLORIDE LEVEL 104 MEQ/L (98-107); CREATININE FOR GFR 0.56 MG/DL (0.55-1.02); GLOMERULAR FILTRATION RATE > 60.0 (>39); GLUCOSE, FASTING 87 MG/DL (83-110); POTASSIUM SERUM 3.5 MEQ/L (3.5-5.1); SODIUM LEVEL 141 MEQ/L (136-145); TOTAL PROTEIN 6.2 GM/DL (6.4-8.2)
[2016-05-19] MEDS: ADVAIR DISKUS 250/50 INH PWD INH SCH ×2 (08:03→21:04)
[2016-05-19] MEDS: ONDANSETRON 4MG/2ML VIAL (J2405) IV PRN (09:16)
[2016-05-19] MEDS: ENOXAPARIN 40 MG/0.4 ML SYRINGE (J1650) SC SCH (09:17)
[2016-05-19] MEDS: POTASSIUM CHLORIDE 10 MEQ SR TABLET PO SCH ×2 (09:17→21:16)
[2016-05-19] MEDS: OMEPRAZOLE 20 MG CAP PO SCH (09:17)
--- NOTE | 2016-05-19 13:10 | IPN ---
DATE: 05/19/2016 Suad is seen in ICU. Really no change from yesterday. She feels well. Denies any headache. Was sleepy, but not lethargic. She has not been running any fevers. PHYSICAL EXAMINATION: 98.5, 130/63, pulse of 84, 93% oxygen saturation. GENERAL APPEARANCE: Lying on her side. She was sleeping soundly when I went in the room. HEENT: Postsurgical changes. LUNGS: Clear. HEART: Regular rate and rhythm. ABDOMEN: Soft, nontender. LABORATORIES: White count 8.2, hemoglobin 10.5, platelets 389, sodium 141, potassium 3.5, BUN 9, creatinine 0.5, glucose 87. IMPRESSION: 1. Nonfunctioning ventriculoperitoneal shunt. She has positive CSF cultures. PATTERN CLEANER shunt removed 05/17/2016. Vancomycin intravenously times 10 days then repeat LP advised. Dr. Lao is involved from infectious disease and Dr. Kumari from neurosurgery. 2. Metabolic encephalopathy. This seems to have resolved with correction of the shunt problems. 3. Common bile duct obstruction. Dr. Centeno is supposed to remove cholecystotomy drainage tube next week. 4. Chronic obstructive pulmonary disease (COPD). Stable. 5. Hypertension. Blood pressure has been well controlled. I will reduce the dose of her amlodipine to 5 mg daily, which is the dose that is less likely to lead to problems with constipation and peripheral edema. 6. Cerebral aneurysm, status post ICA/basilar coiling and PATTERN CLEANER shunt 2014. 7. Depression. Stable on antidepressant medicine. 8. History of splenectomy. High risk of sepsis secondary to this. 9. Tobacco abuse. She is on a nicotine patch. She should be transferred out to the PCU at this point.
[2016-05-19] MEDS ORDERED: CALCIUM CARBONATE 500 MG CHEW U/D PO PRN (15:15)
[2016-05-19] MEDS: SERTRALINE HCL 50 MG TAB PO SCH (21:16)
[2016-05-19] MEDS: NICOTINE 7 MG/24 HR TRANSDERMAL TD SCH (21:17)
[2016-05-20] VITALS (23 sets, daily range): BP systolic 115–149; BP diastolic 56–68
[2016-05-20] MEDS: SODIUM CHLORIDE 0.9% INJ 10 ML SYR IV SCH ×2 (05:30→17:35)
[2016-05-20 05:41] LABS: MEAN CORPUSCULAR HEMOGLOBIN 30.2 pg (27.0-33.0); MEAN CORPUSCULAR HGB CONC 32.6 g/dl (32.0-36.5); MEAN CORPUSCULAR VOLUME 92.5 fl (80.0-96.0); RED CELL DISTRIBUTION WIDTH 14.4 % (11.5-14.5); WHITE BLOOD COUNT 7.5 K/mm3 (4.0-10.0)
[2016-05-20 05:54] LABS: ALBUMIN 2.9 GM/DL (3.2-5.2); ALBUMIN/GLOBULIN RATIO 0.97 (1.00-1.93); ALKALINE PHOSPHATASE 83 U/L (45-117); ALT/SGPT 24 U/L (12-78); ANION GAP 10 MEQ/L (8-16); AST/SGOT 22 U/L (15-37); BILIRUBIN,TOTAL 0.3 MG/DL (0.2-1.0); BLOOD UREA NITROGEN 10 MG/DL (7-18); CALCIUM LEVEL 9.1 MG/DL (8.8-10.2); CARBON DIOXIDE LEVEL 27 MEQ/L (21-32); CHLORIDE LEVEL 106 MEQ/L (98-107); CREATININE FOR GFR 0.61 MG/DL (0.55-1.02); GLOMERULAR FILTRATION RATE > 60.0 (>39); GLUCOSE, FASTING 89 MG/DL (83-110); POTASSIUM SERUM 4.1 MEQ/L (3.5-5.1); SODIUM LEVEL 143 MEQ/L (136-145); TOTAL PROTEIN 5.9 GM/DL (6.4-8.2)
[2016-05-20] MEDS: ACETAMINOPHEN TAB 650MG DOSE (2X325MG) PO PRN (07:39)
[2016-05-20] MEDS: ADVAIR DISKUS 250/50 INH PWD INH SCH ×2 (07:52→19:48)
--- NOTE | 2016-05-20 08:11 | IPNPDOC ---
Assessment/Plan Date Seen The patient was seen on 05/20/16. Problems Problems: (1) Nonfunctioning ventriculoperitoneal shunt Status: Acute Problem Text: D5/10 IV vancomycin possibly able to treat c serial therapeutic LP +/- acetazolamide 05/20/16 Tm 99, WBC 7.5, LP took off 12 cc-patient tolerated c mild post-spinal frontal ENRIQUEZ 05/17/16 + S. epidermidis by shunt tap sens to vanco 05/10: The NUTRITION INSTRUCTOR shunt was externalized by neurosurgery tonight because of evidence of infection, then 05/17/[address] Kumari. 05/08 normal shunt study, neurosurgery suggests shunt likely colonized, and hopes to treat with abx; prefers LP and culture to directly culturing from shunt 05/06/16 MRI brain s/c mild hydro s change, no obvious infection (meningitis, shuntitis) (2) Metabolic encephalopathy Status: Acute Response to Treatment: Stable Problem Text: 05/20 - Mental status stable. 05/18 - mental status stable 05/17 - mental status improved - up in chair, alert a little vague but at baseline 05/16 - Mental status has improved with externalization of shunt and tx of infection favor secondary to NUTRITION INSTRUCTOR shunt infection (3) Common bile duct (CBD) obstruction Status: Acute Problem Text: 05/20 - Dr Centeno is planning to remove cholecystectomy drainage tube this week. 05/17 Dr. Centeno to remove cholecystostomy tube next week 05/15 - plan to remove the cholecystomy tube at some point - dr. Urbina discussing this with Dr. Centeno and Dr. Cornejo 05/10/16 plan d/w Dr. Centeno-favors repeat cholangiogram +/- catheter removal in 4W 05/07/16 percutaneous transhepatic cholangiogram, distal CBD stricture biopsy ( benign by pathology), CBD stone removal and internal-external biliary drainage catheter placement by Dr. Centneo 05/06/16 ERCP unable to perform cholangiogram-Chantal to ask IR for CBD stent placement . (4) COPD (chronic obstructive pulmonary disease) Status: Chronic Problem Text: Respiratory status stable. (5) Hypertension Status: Chronic Problem Text: 05/20 - Amlodipine was decreased to 5 mg daily. (6) Cerebral aneurysm Permanent Comment: s/p ICA/basilar coiling, s/p NUTRITION INSTRUCTOR shunt 2014 Last Edited By: Yoseph Medina MD on May 10, 2016 13:40 Status: Chronic Response to Treatment: Stable Problem Text: S/P ICA/Basilar coiling and NUTRITION INSTRUCTOR shunt 2014. (7) Depression Status: Chronic Problem Text: stable. (8) Tobacco use Status: Chronic Problem Text: 7 mg nicotine patch was ordered to help her with cravings. (9) S/P splenectomy Status: Chronic Response to Treatment: Stable Problem Text: obviously higher sepsis risk Plan / VTE VTE Prophylaxis Ordered?: Yes (Lovenox) Plan Therapy: PT, OT Subjective Review of Systems CC/HPI The patient is a 70-year-old female admitted with a reason for visit of Metabolic Encephalopathy. Events since last encounter Pt feeling better. Denies any new issues. Denies CP, SOB, Abd pain. Constitutional: Denies: Chills, Fever Pulmonary: Denies: Dyspnea Cardiovascular: Denies: Chest Pain Gastrointestinal: Denies: Abdominal Pain, Nausea, Vomiting Objective Physical Examination General Exam: Positive: Alert, No Acute Distress Eye Exam: Positive: PERRLA, Negative: Sclera icteric ENT Exam: Positive: Mucous membr. moist/pink, Pharynx Normal Neck Exam: Positive: Supple, Negative: JVD, thyromegaly Chest Exam: Positive: Clear to auscultation, Diminished Heart Exam: Positive: Normal S1, Normal S2, Rate Normal, Regular Rhythm, Negative: Murmurs, Rubs Abdomen Exam: Positive: Normal bowel sounds, Soft, Negative: Hepatospenomegaly, Tenderness Extremity Exam: Positive: Normal pulses, Negative: Clubbing, Cyanosis, Edema Skin Exam: Positive: Nl turgor and temperature, Negative: Breakdown Neuro Exam: Positive: Other (vague in response. ) Psych Exam: Positive: Other Vital Signs/I&O Vital Signs Date Time Temp Pulse Resp B/P Pulse Ox O2 Delivery O2 Flow Rate FiO2 05/20/16 06:00 60 24 149/68 95 Room Air 05/20/16 04:00 98.4 I&O- Last 24 Hours up to 6 AM 05/20/16 06:00 Intake Total 1710 ml Output Total 750 ml Balance 960 ml Laboratory Data Labs 24H Laboratory Tests 2 05/20/16 05:20: Blood Urea Nitrogen 10, Creatinine 0.61, Sodium Level 143, Potassium Level 4.1, Chloride Level 106, Carbon Dioxide Level 27, Calcium Level 9.1, Aspartate Amino Transf (AST/SGOT) 22, Alanine Aminotransferase (ALT/SGPT) 24, Alkaline Phosphatase 83, Total Bilirubin 0.3, Total Protein 5.9L, Albumin 2.9L, Albumin/ Globulin Ratio 0.97L, Anion Gap 10, Glomerular Filtration Rate > 60.0 CBC/BMP Laboratory Tests 05/20/16 05:20 Calcium Level 9.1, Aspartate Amino Transf (AST/SGOT) 22, Alanine Aminotransferase (ALT/SGPT) 24, Alkaline Phosphatase 83, Total Bilirubin 0.3, Total Protein 5.9 L, Albumin 2.9 L, Red Blood Count 3.48 L, Mean Corpuscular Volume 92.5, Mean Corpuscular Hemoglobin 30.2, Mean Corpuscular Hemoglobin Concent 32.6, Red Cell Distribution Width 14.4 Microbiology Microbiology 05/17/16 Gram Stain - Final, Resulted 05/17/16 CSF Culture, Resulted Pending 05/16/16 Fungal Smear, Received Pending 05/16/16 Fungal Culture, Received Pending 05/16/16 Gram Stain - Final, Complete 05/16/16 CSF Culture - Final, Complete Staphylococcus Epidermidis 05/13/16 Gram Stain - Final, Complete 05/13/16 CSF Culture - Final, Complete Staphylococcus Epidermidis 05/13/16 Fungal Smear, Received Pending 05/13/16 Fungal Culture, Received Pending 05/10/16 Fungal Smear, Received Pending 05/10/16 Fungal Culture, Received Pending 05/10/16 Gram Stain - Final, Complete 05/10/16 CSF Culture - Final, Complete Staphylococcus Epidermidis 05/10/16 MRSA Screen - Final, Complete 05/16/16 Anaerobic Culture - Final, Complete 05/13/16 Anaerobic Culture - Final, Complete 05/10/16 Catheter Tip Culture - Final, Complete Staphylococcus Epidermidis Rip Dubois RPA-Addie May 20, 2016 08:11 Yoseph Medina M.D. May 20, 2016 13:03 05/10/16 CSF Culture - Final, Complete Staphylococcus Epidermidis 05/10/16 MRSA Screen - Final, Complete 05/16/16 Anaerobic Culture - Final, Complete 05/13/16 Anaerobic Culture - Final, Complete 05/10/16 Catheter Tip Culture - Final, Complete Staphylococcus Epidermidis Rip Dubois RPA-C May 20, 2016 08:11
[2016-05-20] MEDS: OMEPRAZOLE 20 MG CAP PO SCH (08:40)
[2016-05-20] MEDS: POTASSIUM CHLORIDE 10 MEQ SR TABLET PO SCH ×2 (08:41→20:28)
[2016-05-20] MEDS: amLODIPine 5 MG TAB PO SCH (08:41)
--- NOTE | 2016-05-20 09:04 | RO ---
DATE OF PROCEDURE: 05/17/2016 PREPROCEDURE DIAGNOSIS: Shunt infection. POSTPROCEDURE DIAGNOSIS: Shunt infection. PROCEDURE: Removal of right ventricular peritoneal shunt. SURGEON: Dr. Hanane Kumari SPORTS DOCTOR: ANESTHESIA: Local with MAC. FINDINGS: Please see the recent hospital records for detail. The patient was admitted 7 days ago for lethargy and declining level of consciousness, abdominal pain. Workup showed progressive dilatation of the ventricles and the shunt on manual exam would not empty very well. 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 Once the shunt was exteriorized, she regained formal level of consciousness. Serial spinal fluid cultures were done very 3 days. Unfortunately , despite the externalized drain, she continues to show positive cultures and Dr. Lao of infectious disease felt that this system has to be removed for any possible cure of her central nervous system infection. Extensive family conference held again, and they understood my rationale of the proposed procedure and understood that she may require ventriculostomy either at the same sitting or down the road if she develops intracranial hypertension. The patient and the patient's family understood all the options, risks, scope, expected outcome, sequelae and all complications of such surgery. The understood the risks included but not limited to , coma, spinal fluid leakage, persistence or worsening of infection, symptoms and/or other deficits, intraventricular hemorrhage and intracranial empyema, seizures, stasis epilepticus, loss of any or all vital bodily function, persistent vegetative state and/or any catastrophic sequelae. The patient and family wished to proceed with surgery. DESCRIPTION OF PROCEDURE: DATE OF PROCEDURE: Once in the operating room, the area of surgery was prepped and draped in the usual sterile fashion after local anesthetic 1% lidocaine with epinephrine was infiltrated just over the hardware posterior to the chencho hole site. Conscious sedation was begun. The incision was deepened down to the galea and pericranium. The scar tissue around the shunt hardware was removed and the shunt catheter and the reservoir was gently withdrawn from the ventricular space. Cerebral spinal fluid from the chencho hole site was sent for pathological examination. The shunt valve was then expressed out. The exteriorized catheter was excised and the shunt assembly was removed and sent to pathology for examination. The wound was closed in one layer. There was wound dehiscence from the ventriculostomy site, which was included in this suture. Blood loss was negligible. The patient tolerated the procedure well and was transferred to the recovery room in stable condition. Operative findings were discussed with the patient's family in the waiting room. GINGER
[2016-05-20] MEDS: NYSTATIN CREAM 15 GM TOP SCH ×2 (13:08→20:29)
[2016-05-20 13:21] LABS: GLUCOSE CSF 51 MG/DL (40-75)
[2016-05-20] MEDS: VANCOMYCIN HCL 1,000 MG, VIAL MATE ADAPTER 1 EACH in D5W 250 ML IV SCH (13:27)
[2016-05-20 14:14] LABS: RBC CSF AUTO 18 /mm3 (0-0); WBC CSF AUTO 27 /mm3 (0-10)
[2016-05-20 14:19] LABS: APPEARANCE, CSF CLEAR (CLEAR); COLOR, CSF COLORLESS (COLORLESS); CSF TUBE# CELL CNT TUBE 3
[2016-05-20 14:20] LABS: CSF DIFF IF INDICATED? YES (NO)
--- NOTE | 2016-05-20 14:48 | PHACANCOPD ---
PHARMACY VANCOMYCIN DOSING Pt Demographics Demographics Patient Age:70 , Weight:48.400 , Gender: female Adjusted Body Weight Vancomycin Vancomycin Target Ranges: 15-20 mcg/ml Vancomycin Load Y/N: Yes Load Dose Date Time Vancomycin Load Dose: 1.5GM (25mg/kg) Date: 05/08/16 Time: 19:00 Vancomycin Dose Date: 05/15/16. CHANGE Current Vancomycin Dose to: 750MG IV Q18H (00:00 05/16/16) ] Intermittent Dosing?: No Labs Micro Microbiology 05/20/16 Gram Stain - Final, Resulted 05/20/16 CSF Culture, Resulted Pending 05/17/16 Gram Stain - Final, Complete 05/17/16 CSF Culture - Final, Complete Staphylococcus Epidermidis 05/16/16 Fungal Smear, Received Pending 05/16/16 Fungal Culture, Received Pending 05/16/16 Gram Stain - Final, Complete 05/16/16 CSF Culture - Final, Complete Staphylococcus Epidermidis 05/13/16 Gram Stain - Final, Complete 05/13/16 CSF Culture - Final, Complete Staphylococcus Epidermidis 05/13/16 Fungal Smear, Received Pending 05/13/16 Fungal Culture, Received Pending 05/10/16 Fungal Smear, Received Pending 05/10/16 Fungal Culture, Received Pending 05/10/16 Gram Stain - Final, Complete 05/10/16 CSF Culture - Final, Complete Staphylococcus Epidermidis 05/10/16 MRSA Screen - Final, Complete 05/16/16 Anaerobic Culture - Final, Complete 05/13/16 Anaerobic Culture - Final, Complete 05/10/16 Catheter Tip Culture - Final, Complete Staphylococcus Epidermidis Creatinine Clearance Date:05/15/16. Creatinine Clearance: [40 ml/min]. Assessment and Plan Maintaining Current Dose?: No Reason for dose change: Trough too low Pharmacist Note Pharmacist Note 05/20/16: Trough today resulted at 13.2. Serum creatinine remains stable. I will increase vancomycin regimen from 750 mg IV Q18H to 1g IV Q18H. A follow-up trough is scheduled 05/23/16 @ 1700, prior to the fourth dose on the new regimen. We will continue to monitor and make further dose adjustments as needed. [facility] May 20, 2016 14:48
--- NOTE | 2016-05-20 15:32 | REP ---
LUMBAR PUNCTURE: The procedure was performed under the direct supervision of Dr. Mcclure. The risks and benefits of the procedure were explained to the patient and informed consent was obtained. The L4-5 interspace was localized using fluoroscopic guidance. The skin was prepped and draped in a sterile fashion. 1% lidocaine was used as a local anesthetic. Using fluoroscopic guidance a 22 gauge spinal needle was inserted and advanced into the thecal sac. 12 mL of spinal fluid was withdrawn and sent to the lab. The patient tolerated the procedure well and there were no immediate complications. 23 seconds of fluoroscopy time was utilized for this procedure. Reviewed by ZAKI Solitario 05/20/2016 03:40 PEdited and Signed by Fritz Mcclure MD 05/20/2016 04:09 P
[2016-05-20] MEDS: traMADol 50 MG TAB PO PRN (16:14)
[2016-05-20] MEDS: SERTRALINE HCL 50 MG TAB PO SCH (20:27)
[2016-05-20] MEDS: NICOTINE 7 MG/24 HR TRANSDERMAL TD SCH (20:28)
[2016-05-20 20:59] LABS: CSF DILUENT LOT # 6109
[2016-05-21] VITALS (19 sets, daily range): BP systolic 106–172; BP diastolic 54–74
[2016-05-21] MEDS: VANCOMYCIN HCL 1,000 MG, VIAL MATE ADAPTER 1 EACH in D5W 250 ML IV SCH ×2 (05:49→23:44)
[2016-05-21] MEDS: SODIUM CHLORIDE 0.9% INJ 10 ML SYR IV SCH ×2 (05:49→18:12)
[2016-05-21 06:22] LABS: MEAN CORPUSCULAR HEMOGLOBIN 30.5 pg (27.0-33.0); MEAN CORPUSCULAR HGB CONC 32.6 g/dl (32.0-36.5); MEAN CORPUSCULAR VOLUME 93.6 fl (80.0-96.0); RED CELL DISTRIBUTION WIDTH 13.7 % (11.5-14.5); WHITE BLOOD COUNT 9.8 K/mm3 (4.0-10.0)
[2016-05-21 06:35] LABS: ALBUMIN 3.1 GM/DL (3.2-5.2); ALBUMIN/GLOBULIN RATIO 0.91 (1.00-1.93); ALKALINE PHOSPHATASE 84 U/L (45-117); ALT/SGPT 26 U/L (12-78); ANION GAP 11 MEQ/L (8-16); AST/SGOT 23 U/L (15-37); BILIRUBIN,TOTAL 0.2 MG/DL (0.2-1.0); BLOOD UREA NITROGEN 11 MG/DL (7-18); CALCIUM LEVEL 9.7 MG/DL (8.8-10.2); CARBON DIOXIDE LEVEL 26 MEQ/L (21-32); CHLORIDE LEVEL 103 MEQ/L (98-107); CREATININE FOR GFR 0.58 MG/DL (0.55-1.02); GLOMERULAR FILTRATION RATE > 60.0 (>39); GLUCOSE, FASTING 90 MG/DL (83-110); POTASSIUM SERUM 4.4 MEQ/L (3.5-5.1); SODIUM LEVEL 140 MEQ/L (136-145); TOTAL PROTEIN 6.5 GM/DL (6.4-8.2)
[2016-05-21] MEDS: ADVAIR DISKUS 250/50 INH PWD INH SCH ×2 (07:50→19:58)
--- NOTE | 2016-05-21 08:46 | IPNPDOC ---
Assessment/Plan Date Seen The patient was seen on 05/21/16. Problems Problems: (1) Nonfunctioning ventriculoperitoneal shunt Status: Acute Problem Text: 05/21 - LP yesterday by Dr Kumari. 05/20/16 D5/10 IV vancomycin possibly able to treat c serial therapeutic LP +/- acetazolamide 05/20/16 Tm 99, WBC 7.5, LP took off 12 cc-patient tolerated c mild post-spinal frontal ENRIQUEZ 05/17/16 + S. epidermidis by shunt tap sens to vanco 05/10: The INSPECTOR [employer]CHAS[employer] shunt was externalized by neurosurgery tonight because of evidence of infection, then 05/17/[address] Kumari. 05/08 normal shunt study, neurosurgery suggests shunt likely colonized, and hopes to treat with abx; prefers LP and culture to directly culturing from shunt 05/06/16 MRI brain s/c mild hydro s change, no obvious infection (meningitis, shuntitis) (2) Metabolic encephalopathy Status: Acute Response to Treatment: Stable Problem Text: 05/21 - Mental status stable. 05/20 - Mental status stable. 05/18 - mental status stable 05/17 - mental status improved - up in chair, alert a little vague but at baseline 05/16 - Mental status has improved with externalization of shunt and tx of infection favor secondary to INSPECTOR PURCHASED [employer]S shunt infection (3) Common bile duct (CBD) obstruction Status: Acute Problem Text: 05/20 - Dr Centeno is planning to remove cholecystectomy drainage tube this week. 05/17 Dr. Centeno to remove cholecystostomy tube next week 05/15 - plan to remove the cholecystomy tube at some point - dr. Urbina discussing this with Dr. Centeno and Dr. Cornejo 05/10/16 plan d/w Dr. Centeno-favors repeat cholangiogram +/- catheter removal in 4W 05/07/16 percutaneous transhepatic cholangiogram, distal CBD stricture biopsy ( benign by pathology), CBD stone removal and internal-external biliary drainage catheter placement by Dr. Centeno 05/06/16 ERCP unable to perform cholangiogram-Chantal to ask IR for CBD stent placement . (4) COPD (chronic obstructive pulmonary disease) Status: Chronic Problem Text: Respiratory status stable. (5) Hypertension Status: Chronic Problem Text: 05/20 - Amlodipine was decreased to 5 mg daily. (6) Cerebral aneurysm Permanent Comment: s/p ICA/basilar coiling, s/p INSPECTOR PURCHASED [employer]S shunt 2014 Last Edited By: Yoesph Medina MD on May 10, 2016 13:40 Status: Chronic Response to Treatment: Stable Problem Text: S/P ICA/Basilar coiling and INSPECTOR PURCH[employer] shunt 2014. (7) Depression Status: Chronic Problem Text: stable. (8) Tobacco use Status: Chronic Problem Text: 7 mg nicotine patch was ordered to help her with cravings. (9) S/P splenectomy Status: Chronic Response to Treatment: Stable Problem Text: obviously higher sepsis risk Plan / VTE VTE Prophylaxis Ordered?: Yes (Lovenox) Plan Therapy: PT, OT Subjective Review of Systems CC/HPI The patient is a 70-year-old female admitted with a reason for visit of Metabolic Encephalopathy. Events since last encounter Pt denies any new issues. Denies CP, SOB, Abd pain. Constitutional: Denies: Chills, Fever Pulmonary: Denies: Dyspnea Cardiovascular: Denies: Chest Pain Gastrointestinal: Denies: Abdominal Pain, Nausea, Vomiting Objective Physical Examination General Exam: Positive: Alert, No Acute Distress Eye Exam: Positive: PERRLA, Negative: Sclera icteric ENT Exam: Positive: Mucous membr. moist/pink, Pharynx Normal Neck Exam: Positive: Supple, Negative: JVD, thyromegaly Chest Exam: Positive: Clear to auscultation, Diminished Heart Exam: Positive: Normal S1, Normal S2, Rate Normal, Regular Rhythm, Negative: Murmurs, Rubs Abdomen Exam: Positive: Normal bowel sounds, Soft, Negative: Hepatospenomegaly, Tenderness Extremity Exam: Positive: Normal pulses, Negative: Clubbing, Cyanosis, Edema Skin Exam: Positive: Nl turgor and temperature, Negative: Breakdown Neuro Exam: Positive: Other (vague in response. ) Psych Exam: Positive: Other Vital Signs/I&O Vital Signs Date Time Temp Pulse Resp B/P Pulse Ox O2 Delivery O2 Flow Rate FiO2 05/21/16 06:00 69 158/73 95 Room Air 05/21/16 04:00 98.2 24 I&O- Last 24 Hours up to 6 AM 05/21/16 06:00 Intake Total 1820 ml Output Total 1837 ml Balance -17 ml Laboratory Data Labs 24H Laboratory Tests 2 05/20/16 11:00: Vancomycin Level Trough 13.2 05/20/16 12:29: CSF Appearance CLEAR, CSF Cell Count Tube # [id number] 3, CSF Color COLORLESS, CSF Eosinophils % 0.0, CSF Glucose 51, CSF Lymphocytes % 77.0H, CSF Monocytes % 22.0H, CSF Neutrophils % 1.0H, CSF RBC 18H, CSF Total Protein 50.8H, CSF Tube Number [id number] 1, CSF WBC 27H 05/21/16 05:52: Blood Urea Nitrogen 11, Creatinine 0.58, Sodium Level 140, Potassium Level 4.4, Chloride Level 103, Carbon Dioxide Level 26, Calcium Level 9.7, Aspartate Amino Transf (AST/SGOT) 23, Alanine Aminotransferase (ALT/SGPT) 26, Alkaline Phosphatase 84, Total Bilirubin 0.2, Total Protein 6.5, Albumin 3.1L, Albumin/ Globulin Ratio 0.91L, Anion Gap 11, Glomerular Filtration Rate > 60.0 CBC/BMP Laboratory Tests 05/21/16 05:52 Calcium Level 9.7, Aspartate Amino Transf (AST/SGOT) 23, Alanine Aminotransferase (ALT/SGPT) 26, Alkaline Phosphatase 84, Total Bilirubin 0.2, Total Protein 6.5, Albumin 3.1 L, Red Blood Count 3.82 L, Mean Corpuscular Volume 93.6, Mean Corpuscular Hemoglobin 30.5, Mean Corpuscular Hemoglobin Concent 32.6, Red Cell Distribution Width 13.7 Microbiology Microbiology 05/20/16 Gram Stain - Final, Resulted 05/20/16 CSF Culture, Resulted Pending 05/17/16 Gram Stain - Final, Complete 05/17/16 CSF Culture - Final, Complete Staphylococcus Epidermidis 05/16/16 Fungal Smear, Received Pending 05/16/16 Fungal Culture, Received Pending 05/16/16 Gram Stain - Final, Complete 05/16/16 CSF Culture - Final, Complete Staphylococcus Epidermidis 05/13/16 Gram Stain - Final, Complete 05/13/16 CSF Culture - Final, Complete Staphylococcus Epidermidis 05/13/16 Fungal Smear, Received Pending 05/13/16 Fungal Culture, Received Pending 05/16/16 Anaerobic Culture - Final, Complete 05/13/16 Anaerobic Culture - Final, Complete Rip Dubois May 21, 2016 08:46
[2016-05-21] MEDS: OMEPRAZOLE 20 MG CAP PO SCH (09:07)
[2016-05-21] MEDS: NYSTATIN CREAM 15 GM TOP SCH ×2 (09:07→21:00)
[2016-05-21] MEDS: POTASSIUM CHLORIDE 10 MEQ SR TABLET PO SCH ×2 (09:08→21:25)
[2016-05-21] MEDS: amLODIPine 5 MG TAB PO SCH (09:08)
[2016-05-21] MEDS: ENOXAPARIN 40 MG/0.4 ML SYRINGE (J1650) SC SCH (09:09)
[2016-05-21] MEDS: ACETAMINOPHEN TAB 650MG DOSE (2X325MG) PO PRN (15:26)
--- NOTE | 2016-05-21 16:39 | IPN ---
DATE: 05/20/2016 Mrs. Murcia was seen in the intensive care unit (ICU). She is doing fairly well. She denied any complaint. No headache, nausea, vomiting, diarrhea, abdominal pain. Her nurse stated that she did very well today with no episodes of confusion. She had lumbar puncture done by Liborio. Cerebrospinal fluid (CSF) had 27 white cells, 18 red cells, 77% lymphocytes, 22% monocytes. Total protein was 50.8. White count was 7.5, hemoglobin 10.5, hematocrit 32.2, platelets 378. Sodium 143, potassium 4.1, chloride 106, bicarbonate 27, BUN 10, creatinine 0.6, glucose 89. Liver profile normal. Albumin 2.9. Gram stain on CSF had few white cells, few red cells. No organisms seen. Culture was pending. Temperature is 99, pulse 69, respirations 20, blood pressure 134/61, oxygen saturation 96% on room air. HEART: Normal S1, S2 with no murmurs. LUNGS: Clear. No wheezes or rhonchi. ABDOMEN: Soft, nontender. No hepatosplenomegaly. NECK: Supple with no stiffness. Ventriculostomy site is slightly erythematous. Minimal tenderness. Also site of externalization of ventriculoperitoneal (WORKERS COMPENSATION ATTORNEY) shunt in the right upper chest has mild erythema as well. IMPRESSION: 1. Ventriculoperitoneal (WORKERS COMPENSATION ATTORNEY) shunt infection with Staphylococcus epidermidis colonization of the WORKERS COMPENSATION ATTORNEY shunt status post removal. The patient is currently on intravenous (IV) vancomycin at a dose of 1 gram every 18 hours. Most recent vancomycin trough was 13.2 on May 20. The patient will be treated for a total of 10 days with IV vancomycin after externalization, which was done on May 17. End of treatment would be May 27. 2. History of subarachnoid hemorrhage and hydrocephalus. The patient will be monitored clinically. She is having neurologic checks every hour. She is still in the intensive care unit (ICU) to be monitored, and if she deteriorates, then a new WORKERS COMPENSATION ATTORNEY shunt will need to be placed. 3. Common bile duct stricture, status post percutaneous transhepatic cholangiogram and external/internal biliary drainage catheter. PLAN: Continue IV vancomycin. Will review results of cultures in next couple days. If mental status change, please obtain followup CT/MRI.
--- NOTE | 2016-05-21 21:03 | IPN ---
DATE: 05/21/2016 Eloina is doing fairly well. She is sitting in a chair in the intensive care unit (ICU), but her nurse, Cathy, had her yesterday and today, and she stated that she is more confused today. She is trying to get out of bed on her own and is more forgetful. LABORATORY DATA: White count is 9.8, hemoglobin 11.6, hematocrit 35.7, platelets 416. Sodium 140, potassium 4.4, chloride 103, bicarbonate 26, BUN 11, creatinine 0.58, glucose 90. Liver profile normal. Albumin 3.1. CSF culture is still pending. PHYSICAL EXAMINATION: Temperature is 97.8. She has been afebrile. Pulse 68, respirations 22, blood pressure 122/74, oxygen saturation 96% on room air. HEART: Normal S1, S2 with no murmurs, rubs, or gallops. LUNGS: Clear. ABDOMEN: Soft, nontender. EXTREMITIES: No edema. NECK: Supple. Slightly more confused. IMPRESSION: 1. Ventriculoperitoneal (ENGINEERED WOOD DESIGNER) shunt infection with Staphylococcus epidermidis colonization status post removal of shunt, on intravenous (IV) vancomycin. 2. History of subarachnoid hemorrhage with hydrocephalus, currently without ENGINEERED WOOD DESIGNER shunt. Will follow clinically for any worsening confusion. Obtain CT or MRI if the patient deteriorates. 3. Common bile duct obstruction. Currently has internal-external biliary drainage system placed by Dr. Centeno myself. I will discuss the case with Dr. Centeno myself. PLAN: Continue IV vancomycin for total of 10 days until May 27 We will continue to monitor headache and mental status changes.
[2016-05-21] MEDS: NICOTINE 7 MG/24 HR TRANSDERMAL TD SCH (21:26)
[2016-05-21] MEDS: SERTRALINE HCL 50 MG TAB PO SCH (21:26)
[2016-05-22] VITALS: BP 147/71
[2016-05-22 04:00] VITALS: BP 137/69
[2016-05-22] MEDS: SODIUM CHLORIDE 0.9% INJ 10 ML SYR IV SCH ×2 (05:40→17:28)
[2016-05-22] MEDS: ACETAMINOPHEN TAB 650MG DOSE (2X325MG) PO PRN (06:27)
[2016-05-22 06:58] LABS: ALBUMIN 3.2 GM/DL (3.2-5.2); ALBUMIN/GLOBULIN RATIO 0.78 (1.00-1.93); ALKALINE PHOSPHATASE 85 U/L (45-117); ALT/SGPT 22 U/L (12-78); ANION GAP 9 MEQ/L (8-16); AST/SGOT 19 U/L (15-37); BILIRUBIN,TOTAL 0.3 MG/DL (0.2-1.0); BLOOD UREA NITROGEN 13 MG/DL (7-18); CALCIUM LEVEL 9.8 MG/DL (8.8-10.2); CARBON DIOXIDE LEVEL 26 MEQ/L (21-32); CHLORIDE LEVEL 105 MEQ/L (98-107); CREATININE FOR GFR 0.69 MG/DL (0.55-1.02); GLOMERULAR FILTRATION RATE > 60.0 (>39); GLUCOSE, FASTING 97 MG/DL (83-110); POTASSIUM SERUM 4.2 MEQ/L (3.5-5.1); SODIUM LEVEL 140 MEQ/L (136-145); TOTAL PROTEIN 7.3 GM/DL (6.4-8.2)
[2016-05-22 07:13] LABS: MEAN CORPUSCULAR HEMOGLOBIN 30.1 pg (27.0-33.0); MEAN CORPUSCULAR HGB CONC 32.5 g/dl (32.0-36.5); MEAN CORPUSCULAR VOLUME 92.5 fl (80.0-96.0); RED CELL DISTRIBUTION WIDTH 13.8 % (11.5-14.5); WHITE BLOOD COUNT 7.9 K/mm3 (4.0-10.0)
[2016-05-22 08:00] VITALS: BP 115/56
[2016-05-22] MEDS: ADVAIR DISKUS 250/50 INH PWD INH SCH ×2 (08:04→20:45)
[2016-05-22] MEDS: NYSTATIN CREAM 15 GM TOP SCH ×2 (09:00→22:06)
--- NOTE | 2016-05-22 09:02 | IPNPDOC ---
Subjective Subjective Date Seen The patient was seen on 05/22/16. Chief Complaint/HPI The patient is a 70-year-old female admitted with a reason for visit of Metabolic Encephalopathy. Events since last encounter Pt denies any new issues. denies CP, SOB, Abd pain. Nursing notes she has been more unsteady and requiring walker use more. Pt knows she is in [facility], the year, and the president. Constitutional: Denies: Chills, Fever Pulmonary: Denies: Dyspnea Cardiovascular: Denies: Chest Pain Gastrointestinal: Denies: Abdominal Pain, Nausea, Vomiting Objective Physical Examination General Exam: Positive: Alert, No Acute Distress Eye Exam: Positive: PERRLA, Negative: Sclera icteric ENT Exam: Positive: Mucous membr. moist/pink, Pharynx Normal Neck Exam: Positive: Supple, Negative: JVD, thyromegaly Chest Exam: Positive: Clear to auscultation, Diminished Heart Exam: Positive: Normal S1, Normal S2, Rate Normal, Regular Rhythm, Negative: Murmurs, Rubs Abdomen Exam: Positive: Normal bowel sounds, Soft, Negative: Hepatospenomegaly, Tenderness Extremity Exam: Positive: Normal pulses, Negative: Clubbing, Cyanosis, Edema Skin Exam: Positive: Nl turgor and temperature, Negative: Breakdown Neuro Exam: Positive: Other (vague in response. ) Psych Exam: Positive: Other Assessment /Plan Problems Problems: (1) Nonfunctioning ventriculoperitoneal shunt Status: Acute Problem Text: 05/22 - Had LP on 05/[address] Kumari. His note advises to repeat spinal tap in several days or sooner if needed to drain up to 30 ml of CSF, as the the LP from 05/20 just [address] Lao from [place] is following and advises contuing the Vanco until 05/27. Not clear that she requires ICU stay at this point. 05/21 - LP yesterday by Dr Kumari. 05/20/16 D5/10 IV vancomycin possibly able to treat c serial therapeutic LP +/- acetazolamide 05/20/16 Tm 99, WBC 7.5, LP took off 12 cc-patient tolerated c mild post-spinal frontal ENRIQUEZ 05/17/16 + S. epidermidis by shunt tap sens to vanco 05/10: The SENIOR IT ENGINEER shunt was externalized by neurosurgery tonight because of evidence of infection, then 05/17/[address] Kumari. 05/08 normal shunt study, neurosurgery suggests shunt likely colonized, and hopes to treat with abx; prefers LP and culture to directly culturing from shunt 05/06/16 MRI brain s/c mild hydro s change, no obvious infection (meningitis, shuntitis) (2) Metabolic encephalopathy Status: Acute Response to Treatment: Stable Problem Text: 05/22 - Pt's mental status seem stable today. She knew she was in [facility]. She knew the year and the president. Nursing is concerned that the patient has been less stable with ambulation and requiring the walker more. Will re-consult PT. 05/21 - Mental status stable. 05/20 - Mental status stable. 05/18 - mental status stable 05/17 - mental status improved - up in chair, alert a little vague but at baseline 05/16 - Mental status has improved with externalization of shunt and tx of infection favor secondary to SENIOR IT ENGINEER shunt infection (3) Common bile duct (CBD) obstruction Status: Acute Problem Text: 05/22 - Dr Centeno is planning to remove cholecystectomy drainage tube this week. Dr Lao following as well and her note states she would be discussing this with him. 05/20 - Dr Centeno is planning to remove cholecystectomy drainage tube this week. 05/17 Dr. Centeno to remove cholecystostomy tube next week 05/15 - plan to remove the cholecystomy tube at some point - dr. Urbina discussing this with Dr. Centeno and Dr. Cornejo 05/10/16 plan d/w Dr. Centeno-favors repeat cholangiogram +/- catheter removal in 4W 05/07/16 percutaneous transhepatic cholangiogram, distal CBD stricture biopsy ( benign by pathology), CBD stone removal and internal-external biliary drainage catheter placement by Dr. Centeno 05/06/16 ERCP unable to perform cholangiogram-Chantal to ask IR for CBD stent placement . (4) COPD (chronic obstructive pulmonary disease) Status: Chronic Problem Text: Respiratory status stable. (5) Hypertension Status: Chronic Problem Text: 05/20 - Amlodipine was decreased to 5 mg daily. (6) Cerebral aneurysm Permanent Comment: s/p ICA/basilar coiling, s/p SENIOR IT ENGINEER shunt 2014 Last Edited By: Yoseph Medina MD on May 10, 2016 13:40 Status: Chronic Response to Treatment: Stable Problem Text: S/P ICA/Basilar coiling and SENIOR IT ENGINEER shunt 2014. (7) Depression Status: Chronic Problem Text: stable. (8) Tobacco use Status: Chronic Problem Text: 7 mg nicotine patch was ordered to help her with cravings. (9) S/P splenectomy Status: Chronic Response to Treatment: Stable Problem Text: obviously higher sepsis risk Plan/VTE VTE Prophylaxis Ordered?: Yes (Lovenox) Plan Therapy: PT, OT VS, I&O, 24H, Fishbone Vital Signs/I&O VS/I&O Vital Signs Date Time Temp Pulse Resp B/P Pulse Ox O2 Delivery O2 Flow Rate FiO2 05/22/16 04:00 97.0 80 18 137/69 93 Room Air I&O- Last 24 Hours up to 6 AM 05/22/16 06:00 Intake Total 780 ml Output Total 1650 ml Balance -870 ml Laboratory Data 24H LABS Laboratory Tests 2 05/22/16 06:28: Blood Urea Nitrogen 13, Creatinine 0.69, Sodium Level 140, Potassium Level 4.2, Chloride Level 105, Carbon Dioxide Level 26, Calcium Level 9.8, Aspartate Amino Transf (AST/SGOT) 19, Alanine Aminotransferase (ALT/SGPT) 22, Alkaline Phosphatase 85, Total Bilirubin 0.3, Total Protein 7.3, Albumin 3.2, Albumin/ Globulin Ratio 0.78L, Anion Gap 9, Glomerular Filtration Rate > 60.0 CBC/BMP Laboratory Tests 05/22/16 06:28 Calcium Level 9.8, Aspartate Amino Transf (AST/SGOT) 19, Alanine Aminotransferase (ALT/SGPT) 22, Alkaline Phosphatase 85, Total Bilirubin 0.3, Total Protein 7.3, Albumin 3.2, Red Blood Count 4.19, Mean Corpuscular Volume 92.5, Mean Corpuscular Hemoglobin 30.1, Mean Corpuscular Hemoglobin Concent 32.5 , Red Cell Distribution Width 13.8 Microbiology Microbiology 05/20/16 Gram Stain - Final, Resulted 05/20/16 CSF Culture, Resulted Pending 05/17/16 Gram Stain - Final, Complete 05/17/16 CSF Culture - Final, Complete Staphylococcus Epidermidis 05/16/16 Fungal Smear, Received Pending 05/16/16 Fungal Culture, Received Pending 05/16/16 Gram Stain - Final, Complete 05/16/16 CSF Culture - Final, Complete Staphylococcus Epidermidis 05/13/16 Gram Stain - Final, Complete 05/13/16 CSF Culture - Final, Complete Staphylococcus Epidermidis 05/13/16 Fungal Smear, Received Pending 05/13/16 Fungal Culture, Received Pending 05/16/16 Anaerobic Culture - Final, Complete 05/13/16 Anaerobic Culture - Final, Complete Attending Note Attending Note Patient seen and examined; agree with findings and plan as outlined by PA and as amended. Rip Dubois May 22, 2016 09:02 Roshan Belcher MD May 22, 2016 14:03
[2016-05-22] MEDS: ENOXAPARIN 40 MG/0.4 ML SYRINGE (J1650) SC SCH (09:37)
[2016-05-22] MEDS: OMEPRAZOLE 20 MG CAP PO SCH (09:37)
[2016-05-22] MEDS: amLODIPine 5 MG TAB PO SCH (09:38)
[2016-05-22] MEDS: POTASSIUM CHLORIDE 10 MEQ SR TABLET PO SCH ×2 (09:38→22:07)
[2016-05-22 16:00] VITALS: BP 119/61
[2016-05-22] MEDS: VANCOMYCIN HCL 1,000 MG, VIAL MATE ADAPTER 1 EACH in D5W 250 ML IV SCH (17:28)
[2016-05-22 20:00] VITALS: BP 139/66
[2016-05-22] MEDS: SERTRALINE HCL 50 MG TAB PO SCH (22:06)
[2016-05-22] MEDS: NICOTINE 7 MG/24 HR TRANSDERMAL TD SCH (22:06)
[2016-05-23] VITALS (9 sets, daily range): BP systolic 114–156; BP diastolic 56–75
[2016-05-23] MEDS: SODIUM CHLORIDE 0.9% INJ 10 ML SYR IV SCH ×2 (06:00→17:29)
[2016-05-23] MEDS: ACETAMINOPHEN TAB 650MG DOSE (2X325MG) PO PRN (06:57)
--- NOTE | 2016-05-23 08:33 | IPNPDOC ---
Subjective General Date Seen The patient was seen on 05/23/16. Subjective Chief Complaint/HPI The patient is a 70-year-old female admitted with a reason for visit of Metabolic Encephalopathy. Events since last encounter Pt denies any new issues. Denies CP, SOB. Constitutional: Denies: Chills, Fever Pulmonary: Denies: Dyspnea Cardiovascular: Denies: Chest Pain Gastrointestinal: Denies: Abdominal Pain, Nausea, Vomiting Objective Physical Examination General Exam: Positive: Alert, No Acute Distress Eye Exam: Positive: PERRLA, Negative: Sclera icteric ENT Exam: Positive: Mucous membr. moist/pink, Pharynx Normal Neck Exam: Positive: Supple, Negative: JVD, thyromegaly Chest Exam: Positive: Clear to auscultation, Diminished Heart Exam: Positive: Normal S1, Normal S2, Rate Normal, Regular Rhythm, Negative: Murmurs, Rubs Abdomen Exam: Positive: Normal bowel sounds, Soft, Negative: Hepatospenomegaly, Tenderness Extremity Exam: Positive: Normal pulses, Negative: Clubbing, Cyanosis, Edema Skin Exam: Positive: Nl turgor and temperature, Negative: Breakdown Neuro Exam: Positive: Other (vague in response. ) Psych Exam: Positive: Other Assessment /Plan Problems Problems: (1) Nonfunctioning ventriculoperitoneal shunt Status: Acute Problem Text: 05/23 - Had LP on 05/[address] Kumari. His note advises to repeat spinal tap in several days or sooner if needed to drain up to 30 ml of CSF, as the the LP from 05/20 just [address] Lao from [place] is following and advises continuing the Vanco until 05/27. Will transfer her out of ICU to PCU. 05/22 - Had LP on 05/[address] Kumari. His note advises to repeat spinal tap in several days or sooner if needed to drain up to 30 ml of CSF, as the the LP from 05/20 just [address] Lao from [place] is following and advises continuing the Vanco until 05/27. Not clear that she requires ICU stay at this point. 05/21 - LP yesterday by Dr Kumari. 05/20/16 D5/10 IV vancomycin possibly able to treat c serial therapeutic LP +/- acetazolamide 05/20/16 Tm 99, WBC 7.5, LP took off 12 cc-patient tolerated c mild post-spinal frontal ENRIQUEZ 05/17/16 + S. epidermidis by shunt tap sens to vanco 05/10: The RIVET BUCKER shunt was externalized by neurosurgery tonight because of evidence of infection, then 05/17/[address] Kumari. 05/08 normal shunt study, neurosurgery suggests shunt likely colonized, and hopes to treat with abx; prefers LP and culture to directly culturing from shunt 05/06/16 MRI brain s/c mild hydro s change, no obvious infection (meningitis, shuntitis) (2) Metabolic encephalopathy Status: Acute Response to Treatment: Stable Problem Text: 05/23 - Pt's mental status seem stable today. She knew she was in [facility]. She knew the year and the president. 05/22 - Pt's mental status seem stable today. She knew she was in [facility]. She knew the year and the president. Nursing is concerned that the patient has been less stable with ambulation and requiring the walker more. Will re-consult PT. 05/21 - Mental status stable. 05/20 - Mental status stable. 05/18 - mental status stable 2/ - mental status improved - up in chair, alert a little vague but at baseline 2 - Mental status has improved with externalization of shunt and tx of infection favor secondary to RIVET BUCKER shunt infection (3) Common bile duct (CBD) obstruction Status: Acute Problem Text: 05/23 - Dr Centeno is planning to remove cholecystectomy drainage tube. This appears to be planned for next week. Dr Tashia bernard as well and her recent note states she would be discussing this with him. 05/22 - Dr Centeno is planning to remove cholecystectomy drainage tube this week. Dr Tashia bernard as well and her note states she would be discussing this with him. 05/20 - Dr Centeno is planning to remove cholecystectomy drainage tube this week. 05/17 Dr. Centeno to remove cholecystostomy tube next week 05/15 - plan to remove the cholecystomy tube at some point - dr. Urbina discussing this with Dr. Centeno and Dr. Cornejo 05/10/16 plan d/w Dr. Centeno-favors repeat cholangiogram +/- catheter removal in 4W 05/07/16 percutaneous transhepatic cholangiogram, distal CBD stricture biopsy ( benign by pathology), CBD stone removal and internal-external biliary drainage catheter placement by Dr. Centeno 05/06/16 ERCP unable to perform cholangiogram-Reindl to ask IR for CBD stent placement . (4) COPD (chronic obstructive pulmonary disease) Status: Chronic Problem Text: Respiratory status stable. (5) Hypertension Status: Chronic Problem Text: 05/20 - Amlodipine was decreased to 5 mg daily. (6) Cerebral aneurysm Permanent Comment: s/p ICA/basilar coiling, s/p RIVET BUCKER shunt 2014 Last Edited By: Yoseph Medina MD on May 10, 2016 13:40 Status: Chronic Response to Treatment: Stable Problem Text: S/P ICA/Basilar coiling and RIVET BUCKER shunt 2014. (7) Depression Status: Chronic Problem Text: stable. (8) Tobacco use Status: Chronic Problem Text: 7 mg nicotine patch was ordered to help her with cravings. (9) S/P splenectomy Status: Chronic Response to Treatment: Stable Problem Text: obviously higher sepsis risk Plan/VTE VTE Prophylaxis Ordered?: Yes (Lovenox) Plan Therapy: PT, OT VS, I&O, 24H, Fishbone Vital Signs/I&O Vital Signs Date Time Temp Pulse Resp B/P Pulse Ox O2 Delivery O2 Flow Rate FiO2 05/23/16 04:00 98.0 75 18 156/75 93 Room Air I&O- Last 24 Hours up to 6 AM 05/23/16 05:59 Intake Total 1280 ml Output Total 550 ml Balance 730 ml Laboratory Data Microbiology Microbiology 05/20/16 Gram Stain - Final, Complete 05/20/16 CSF Culture - Final, Complete 05/17/16 Gram Stain - Final, Complete 05/17/16 CSF Culture - Final, Complete Staphylococcus Epidermidis 05/16/16 Fungal Smear, Received Pending 05/16/16 Fungal Culture, Received Pending 05/16/16 Gram Stain - Final, Complete 05/16/16 CSF Culture - Final, Complete Staphylococcus Epidermidis 05/13/16 Gram Stain - Final, Complete 05/13/16 CSF Culture - Final, Complete Staphylococcus Epidermidis 05/13/16 Fungal Smear, Received Pending 05/13/16 Fungal Culture, Received Pending 05/16/16 Anaerobic Culture - Final, Complete 05/13/16 Anaerobic Culture - Final, Complete Attending Note Attending Note Reviewed note by Pramod Dubois and agree with findings and plan. Spoke to Daughter and reviewed plan of care and she expresses understanding. Rip Dubois May 23, 2016 08:33 Roshan Belcher MD May 23, 2016 14:52
[2016-05-23] MEDS: OMEPRAZOLE 20 MG CAP PO SCH (08:46)
[2016-05-23] MEDS: POTASSIUM CHLORIDE 10 MEQ SR TABLET PO SCH ×2 (08:46→21:19)
[2016-05-23] MEDS: ENOXAPARIN 40 MG/0.4 ML SYRINGE (J1650) SC SCH (08:47)
[2016-05-23] MEDS: NYSTATIN CREAM 15 GM TOP SCH ×2 (08:47→21:19)
[2016-05-23] MEDS: amLODIPine 5 MG TAB PO SCH (08:47)
[2016-05-23] MEDS: ADVAIR DISKUS 250/50 INH PWD INH SCH ×2 (09:07→20:04)
[2016-05-23 09:34] LABS: BASO % 0.5 % (0.0-1.0); EOS # 0.3 K/mm3 (0.0-0.50); LARGE UNSTAINED CELL # 0.2 K/mm3 (0.0-0.4); LARGE UNSTAINED CELL % 2.8 % (0.0-4.0); LYMPH # 2.6 K/mm3 (1.5-4.5); LYMPH % 32.6 % (24.0-44.0); MEAN CORPUSCULAR HEMOGLOBIN 29.5 pg (27.0-33.0); MEAN CORPUSCULAR HGB CONC 31.7 g/dl (32.0-36.5); MEAN CORPUSCULAR VOLUME 92.9 fl (80.0-96.0); MONO # 0.4 K/mm3 (0.0-0.8); MONO % 5.3 % (0.0-5.0); NEUTROPHILS # 4.1 K/mm3 (1.8-7.7); NEUTROPHILS % 54.8 % (36.0-66.0); PLATELET COUNT, AUTOMATED 402 k/mm3 (150-450); RED CELL DISTRIBUTION WIDTH 14.1 % (11.5-14.5); WHITE BLOOD COUNT 7.4 K/mm3 (4.0-10.0)
[2016-05-23 09:43] LABS: ALBUMIN 3.3 GM/DL (3.2-5.2); ALBUMIN/GLOBULIN RATIO 0.85 (1.00-1.93); ALKALINE PHOSPHATASE 84 U/L (45-117); ALT/SGPT 24 U/L (12-78); ANION GAP 8 MEQ/L (8-16); AST/SGOT 19 U/L (15-37); BILIRUBIN,TOTAL 0.4 MG/DL (0.2-1.0); BLOOD UREA NITROGEN 16 MG/DL (7-18); CALCIUM LEVEL 9.7 MG/DL (8.8-10.2); CARBON DIOXIDE LEVEL 27 MEQ/L (21-32); CHLORIDE LEVEL 104 MEQ/L (98-107); CREATININE FOR GFR 0.84 MG/DL (0.55-1.02); GLOMERULAR FILTRATION RATE > 60.0 (>39); GLUCOSE, FASTING 128 MG/DL (83-110); POTASSIUM SERUM 4.2 MEQ/L (3.5-5.1); SODIUM LEVEL 139 MEQ/L (136-145); TOTAL PROTEIN 7.2 GM/DL (6.4-8.2)
[2016-05-23] MEDS: VANCOMYCIN HCL 1,000 MG, VIAL MATE ADAPTER 1 EACH in D5W 250 ML IV SCH (12:14)
[2016-05-23] MEDS: SERTRALINE HCL 50 MG TAB PO SCH (21:19)
[2016-05-23] MEDS: NICOTINE 7 MG/24 HR TRANSDERMAL TD SCH (21:20)
--- NOTE | 2016-05-23 22:07 | IPN ---
DATE: 05/23/2016 Mrs. Murcia seems to be doing very well. She denies any complaints. No headache, no nausea, no nausea, no diarrhea, no abdominal pain. She remains in the ICU being monitored, but she is doing great. Temperature is 97.4, pulse 73, respirations 18, blood pressure 127/63, O2 sat 96% on room air. Heart: Normal S1-S2 with no murmurs, rubs or gallops. Lungs are clear. No wheezes, rales or rhonchi. Abdomen is soft. She still has an external gallbladder drainage system. Extremities: No clubbing, cyanosis or edema. No calf tenderness. Neck is supple. No stiffness. Alert and oriented x3. White count is 7.4, hemoglobin 11.7, hematocrit 402. Sodium 139, potassium 4.2, chloride 104, bicarbonate 27, BUN 16, creatinine 0.8, ALC 19, ALT 24, alkaline phosphatase 84. 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 She is currently day #7 of IV antibiotics. She will continue IV antibiotics for a total of 10 days. Hydrocephalus. Doing well without OCEAN LIFEGUARD shunt. She might not need placement of new shunt. Common bile duct stricture. She has an external drainage that will be removed next . I have discussed that with Dr. Centeno. It would be ideal if she needs a new OCEAN LIFEGUARD shunt that she does not have any other drains from the gallbladder that may cause contamination of her new OCEAN LIFEGUARD shunt.
[2016-05-24] VITALS: BP 142/65
[2016-05-24 04:00] VITALS: BP 130/60
[2016-05-24 05:18] LABS: BASO # 0.1 K/mm3 (0.0-0.2); BASO % 0.9 % (0.0-1.0); EOS # 0.3 K/mm3 (0.0-0.50); LARGE UNSTAINED CELL # 0.2 K/mm3 (0.0-0.4); LYMPH # 2.7 K/mm3 (1.5-4.5); LYMPH % 32.8 % (24.0-44.0); MEAN CORPUSCULAR HEMOGLOBIN 30.5 pg (27.0-33.0); MEAN CORPUSCULAR HGB CONC 32.7 g/dl (32.0-36.5); MEAN CORPUSCULAR VOLUME 93.2 fl (80.0-96.0); MONO # 0.6 K/mm3 (0.0-0.8); MONO % 8.1 % (0.0-5.0); NEUTROPHILS # 3.9 K/mm3 (1.8-7.7); NEUTROPHILS % 51.1 % (36.0-66.0); PLATELET COUNT, AUTOMATED 389 k/mm3 (150-450); RED CELL DISTRIBUTION WIDTH 14.1 % (11.5-14.5); WHITE BLOOD COUNT 7.5 K/mm3 (4.0-10.0)
[2016-05-24 05:37] LABS: ALBUMIN 3.2 GM/DL (3.2-5.2); ALBUMIN/GLOBULIN RATIO 0.84 (1.00-1.93); ALKALINE PHOSPHATASE 84 U/L (45-117); ALT/SGPT 40 U/L (12-78); ANION GAP 8 MEQ/L (8-16); AST/SGOT 13 U/L (15-37); BILIRUBIN,TOTAL 0.2 MG/DL (0.2-1.0); BLOOD UREA NITROGEN 16 MG/DL (7-18); CALCIUM LEVEL 9.5 MG/DL (8.8-10.2); CARBON DIOXIDE LEVEL 27 MEQ/L (21-32); CHLORIDE LEVEL 106 MEQ/L (98-107); CREATININE FOR GFR 0.69 MG/DL (0.55-1.02); GLOMERULAR FILTRATION RATE > 60.0 (>39); GLUCOSE, FASTING 96 MG/DL (83-110); POTASSIUM SERUM 4.3 MEQ/L (3.5-5.1); SODIUM LEVEL 141 MEQ/L (136-145)
[2016-05-24] MEDS: SODIUM CHLORIDE 0.9% INJ 10 ML SYR IV SCH ×2 (06:12→17:47)
[2016-05-24] MEDS: VANCOMYCIN HCL 1,000 MG, VIAL MATE ADAPTER 1 EACH in D5W 250 ML IV SCH (06:13)
[2016-05-24 07:57] VITALS: BP 132/63
--- NOTE | 2016-05-24 08:05 | IPNPDOC ---
Subjective General Date Seen The patient was seen on 05/24/16. Subjective Chief Complaint/HPI The patient is a 70-year-old female admitted with a reason for visit of Metabolic Encephalopathy. Events since last encounter feeling well. denies c/o. OOB with assist. Documented ataxic gait. Constitutional: Denies: Chills, Fever, Night Sweats Skin: Denies: Breakdown, Lesions, Rash Pulmonary: Denies: Cough, Dyspnea Cardiovascular: Denies: Chest Pain, Lt Headedness, Orthopnea, Palpitations, Paroxysmal Noc. Dyspnea Gastrointestinal: Denies: Abdominal Pain, Constipation, Diarrhea, Nausea, Vomiting Genitourinary: Denies: Dysuria, Frequency, Incontinence, Retention Psych: Reports: Mood Normal, Denies: Depression, Memory Issues Objective Physical Examination General Exam: Positive: Alert, No Acute Distress Eye Exam: Positive: PERRLA, Negative: Sclera icteric ENT Exam: Positive: Mucous membr. moist/pink, Pharynx Normal Neck Exam: Positive: Supple, Negative: JVD, thyromegaly Chest Exam: Positive: Clear to auscultation, Diminished Heart Exam: Positive: Normal S1, Normal S2, Rate Normal, Regular Rhythm, Negative: Murmurs, Rubs Abdomen Exam: Positive: Normal bowel sounds, Soft, Negative: Hepatospenomegaly, Tenderness Extremity Exam: Positive: Normal pulses, Negative: Clubbing, Cyanosis, Edema Skin Exam: Positive: Nl turgor and temperature, Negative: Breakdown Neuro Exam: Positive: Other (vague in response. ) Psych Exam: Positive: Other Assessment /Plan Problems Problems: (1) Nonfunctioning ventriculoperitoneal shunt Status: Acute Problem Text: 05/24/2016: See notes below for plan. No changes. 05/23 - Had LP on 05/[address] Kumari. His note advises to repeat spinal tap in several days or sooner if needed to drain up to 30 ml of CSF, as the the LP from 05/20 just [address] Lao from [place] is following and advises continuing the Vanco until 05/27. Will transfer her out of ICU to PCU. 05/22 - Had LP on 05/[address] Kumari. His note advises to repeat spinal tap in several days or sooner if needed to drain up to 30 ml of CSF, as the the LP from 05/20 just [address] Lao from [place] is following and advises continuing the Vanco until 05/27. Not clear that she requires ICU stay at this point. 05/21 - LP yesterday by Dr Kumari. 05/20/16 D5/10 IV vancomycin possibly able to treat c serial therapeutic LP +/- acetazolamide 05/20/16 Tm 99, WBC 7.5, LP took off 12 cc-patient tolerated c mild post-spinal frontal ENRIQUEZ 05/17/16 + S. epidermidis by shunt tap sens to vanco 05/10: The MANAGER [employer]ICING shunt was externalized by neurosurgery tonight because of evidence of infection, then 05/17/[address] Kumari. 05/08 normal shunt study, neurosurgery suggests shunt likely colonized, and hopes to treat with abx; prefers LP and culture to directly culturing from shunt 05/06/16 MRI brain s/c mild hydro s change, no obvious infection (meningitis, shuntitis) (2) Metabolic encephalopathy Status: Acute Response to Treatment: Stable Problem Text: 05/24/2016: unchanged MS. Mildly vague at times yet A/o x 3 05/23 - Pt's mental status seem stable today. She knew she was in [facility]. She knew the year and the president. 05/22 - Pt's mental status seem stable today. She knew she was in [facility]. She knew the year and the president. Nursing is concerned that the patient has been less stable with ambulation and requiring the walker more. Will re-consult PT. 05/21 - Mental status stable. 05/20 - Mental status stable. 05/18 - mental status stable /3 - mental status improved - up in chair, alert a little vague but at baseline 2/2 - Mental status has improved with externalization of shunt and tx of infection favor secondary to MANAGER PRICING shunt infection (3) Common bile duct (CBD) obstruction Status: Acute Problem Text: 05/24/2016: see plan below. 05/23 - Dr Centeno is planning to remove cholecystectomy drainage tube. This appears to be planned for next week. Dr Lao following as well and her recent note states she would be discussing this with him. 05/22 - Dr Centeno is planning to remove cholecystectomy drainage tube this week. Dr Lao following as well and her note states she would be discussing this with him. 05/20 - Dr Centeno is planning to remove cholecystectomy drainage tube this week. 05/17 Dr. Centeno to remove cholecystostomy tube next week 05/15 - plan to remove the cholecystomy tube at some point - dr. Urbina discussing this with Dr. Centeno and Dr. Cornejo 05/10/16 plan d/w Dr. Centeno-favors repeat cholangiogram +/- catheter removal in 4W 05/07/16 percutaneous transhepatic cholangiogram, distal CBD stricture biopsy ( benign by pathology), CBD stone removal and internal-external biliary drainage catheter placement by Dr. Centeno 05/06/16 ERCP unable to perform cholangiogram-Chantal to ask IR for CBD stent placement . (4) COPD (chronic obstructive pulmonary disease) Status: Chronic Response to Treatment: Stable Problem Text: Respiratory status stable. (5) Hypertension Status: Chronic Problem Text: 05/20 - Amlodipine was decreased to 5 mg daily. (6) Cerebral aneurysm Permanent Comment: s/p ICA/basilar coiling, s/p MANAGER PRICING shunt 2014 Last Edited By: Yoseph Medina MD on May 10, 2016 13:40 Status: Chronic Response to Treatment: Stable Problem Text: S/P ICA/Basilar coiling and MANAGER PRICING shunt 2014. (7) Depression Status: Chronic Response to Treatment: Stable Problem Text: stable. (8) Tobacco use Status: Chronic Problem Text: 7 mg nicotine patch was ordered to help her with cravings. (9) S/P splenectomy Status: Chronic Response to Treatment: Stable Problem Text: obviously higher sepsis risk Plan/VTE VTE Prophylaxis Ordered?: Yes (Lovenox) Plan Therapy: PT, OT VS, I&O, 24H, Fishbone Vital Signs/I&O Vital Signs Date Time Temp Pulse Resp B/P Pulse Ox O2 Delivery O2 Flow Rate FiO2 05/24/16 04:00 97.4 61 16 130/60 95 Room Air I&O- Last 24 Hours up to 6 AM 05/24/16 06:00 Intake Total 1040 ml Output Total 1200 ml Balance -160 ml Laboratory Data 24H LABS Laboratory Tests 2 05/23/16 09:13: Blood Urea Nitrogen 16, Creatinine 0.84, Sodium Level 139, Potassium Level 4.2, Chloride Level 104, Carbon Dioxide Level 27, Calcium Level 9.7, Aspartate Amino Transf (AST/SGOT) 19, Alanine Aminotransferase (ALT/SGPT) 24, Alkaline Phosphatase 84, Total Bilirubin 0.4, Total Protein 7.2, Albumin 3.3, Albumin/ Globulin Ratio 0.85L, Anion Gap 8, White Blood Count 7.4, Red Blood Count 3.98L , Hemoglobin 11.7L, Hematocrit 36.9, Mean Corpuscular Volume 92.9, Mean Corpuscular Hemoglobin 29.5, Mean Corpuscular Hemoglobin Concent 31.7L, Red Cell Distribution Width 14.1, Platelet Count 402, Neutrophils (%) (Auto) 54.8, Lymphocytes (%) (Auto) 32.6, Monocytes (%) (Auto) 5.3H, Eosinophils (%) (Auto) 4.0H, Basophils (%) (Auto) 0.5, Neutrophils # (Auto) 4.1, Lymphocytes # (Auto) 2.6, Monocytes # (Auto) 0.4, Eosinophils # (Auto) 0.3, Basophils # (Auto) 0.0, Glomerular Filtration Rate > 60.0, Large Unclassified Cells # 0.2, Large Unclassified Cells % 2.8 05/23/16 16:47: Vancomycin Level Trough 30.5*H 05/24/16 05:04: Blood Urea Nitrogen 16, Creatinine 0.69, Sodium Level 141, Potassium Level 4.3, Chloride Level 106, Carbon Dioxide Level 27, Calcium Level 9.5, Aspartate Amino Transf (AST/SGOT) 13L, Alanine Aminotransferase (ALT/SGPT) 40, Alkaline Phosphatase 84, Total Bilirubin 0.2, Total Protein 7.0, Albumin 3.2, Albumin/ Globulin Ratio 0.84L, Anion Gap 8, White Blood Count 7.5, Red Blood Count 3.78L , Hemoglobin 11.5L, Hematocrit 35.2L, Mean Corpuscular Volume 93.2, Mean Corpuscular Hemoglobin 30.5, Mean Corpuscular Hemoglobin Concent 32.7, Red Cell Distribution Width 14.1, Platelet Count 389, Neutrophils (%) (Auto) 51.1, Lymphocytes (%) (Auto) 32.8, Monocytes (%) (Auto) 8.1H, Eosinophils (%) (Auto) 4.0H, Basophils (%) (Auto) 0.9, Neutrophils # (Auto) 3.9, Lymphocytes # (Auto) 2.7, Monocytes # (Auto) 0.6, Eosinophils # (Auto) 0.3, Basophils # (Auto) 0.1, Glomerular Filtration Rate > 60.0, Large Unclassified Cells # 0.2, Large Unclassified Cells % 3.0 CBC/BMP Laboratory Tests 05/23/16 09:13 Calcium Level 9.7, Aspartate Amino Transf (AST/SGOT) 19, Alanine Aminotransferase (ALT/SGPT) 24, Alkaline Phosphatase 84, Total Bilirubin 0.4, Total Protein 7.2, Albumin 3.3, Red Blood Count 3.98 L, Mean Corpuscular Volume 92.9, Mean Corpuscular Hemoglobin 29.5, Mean Corpuscular Hemoglobin Concent 31.7 L, Red Cell Distribution Width 14.1, Neutrophils (%) (Auto) 54.8, Lymphocytes (%) (Auto) 32.6, Monocytes (%) (Auto) 5.3 H, Eosinophils (%) (Auto) 4.0 H, Basophils (%) (Auto) 0.5, Neutrophils # (Auto) 4.1, Lymphocytes # (Auto) 2.6, Monocytes # (Auto) 0.4, Eosinophils # (Auto) 0.3, Basophils # (Auto) 0.0 05/24/16 05:04 Calcium Level 9.5, Aspartate Amino Transf (AST/SGOT) 13 L, Alanine Aminotransferase (ALT/SGPT) 40, Alkaline Phosphatase 84, Total Bilirubin 0.2, Total Protein 7.0, Albumin 3.2, Red Blood Count 3.78 L, Mean Corpuscular Volume 93.2, Mean Corpuscular Hemoglobin 30.5, Mean Corpuscular Hemoglobin Concent 32.7 , Red Cell Distribution Width 14.1, Neutrophils (%) (Auto) 51.1, Lymphocytes (% ) (Auto) 32.8, Monocytes (%) (Auto) 8.1 H, Eosinophils (%) (Auto) 4.0 H, Basophils (%) (Auto) 0.9, Neutrophils # (Auto) 3.9, Lymphocytes # (Auto) 2.7, Monocytes # (Auto) 0.6, Eosinophils # (Auto) 0.3, Basophils # (Auto) 0.1 Microbiology Microbiology 05/20/16 Gram Stain - Final, Resulted 05/20/16 CSF Culture - Preliminary, Resulted 05/17/16 Gram Stain - Final, Complete 05/17/16 CSF Culture - Final, Complete Staphylococcus Epidermidis 05/16/16 Fungal Smear, Received Pending 05/16/16 Fungal Culture, Received Pending 05/16/16 Gram Stain - Final, Complete 05/16/16 CSF Culture - Final, Complete Staphylococcus Epidermidis 05/16/16 Anaerobic Culture - Final, Complete Attending Note Attending Note agree with findings and plan detailed by Tricia Fan. Her daughter is very attuned to her mental status changes and per our discussion yesterday knows to alert us if she perceives changes. Alvina Fan May 24, 2016 08:05 Roshan Belcher MD May 24, 2016 13:02
[2016-05-24] MEDS: ADVAIR DISKUS 250/50 INH PWD INH SCH ×2 (08:12→19:46)
--- NOTE | 2016-05-24 09:24 | REP ---
CT HEAD WITHOUT CONTRAST: HISTORY: Shunt removal. COMPARISON: 05/18/2016. Areas of decreased attenuation are present in the periventricular and subcortical white matter. This represents small vessel ischemic disease. There is no intraparenchymal hemorrhage, mass or midline shift. There is dilatation of the ventricular system unchanged compared to the previous study. A small amount of pneumocephalus is present over the right frontal lobe. The pneumocephalus is decreased compared to the previous study. There is no extracerebral collection. The patient is status post aneurysm coiling. The visualized sinuses are clear. IMPRESSION: 1. Mild hydrocephalus unchanged compared to the previous study. 2. Small amount of pneumocephalus is present that is decreased compared to the previous study. Signed by Fritz Mcclure MD 05/24/2016 09:33 A
[2016-05-24] MEDS: POTASSIUM CHLORIDE 10 MEQ SR TABLET PO SCH ×2 (10:20→21:41)
[2016-05-24] MEDS: amLODIPine 5 MG TAB PO SCH (10:20)
[2016-05-24] MEDS: OMEPRAZOLE 20 MG CAP PO SCH (10:21)
[2016-05-24] MEDS: ENOXAPARIN 40 MG/0.4 ML SYRINGE (J1650) SC SCH (10:21)
[2016-05-24] MEDS: NYSTATIN CREAM 15 GM TOP SCH ×2 (10:21→21:41)
[2016-05-24 12:00] VITALS: BP 128/89
[2016-05-24 14:50] VITALS: BP 153/67
[2016-05-24] MEDS: ACETAMINOPHEN TAB 650MG DOSE (2X325MG) PO PRN ×2 (17:48→21:41)
[2016-05-24 20:45] VITALS: BP 140/65
[2016-05-24] MEDS: SERTRALINE HCL 50 MG TAB PO SCH (21:41)
[2016-05-24] MEDS: NICOTINE 7 MG/24 HR TRANSDERMAL TD SCH (21:43)
[2016-05-25] MEDS: VANCOMYCIN HCL 1,000 MG, VIAL MATE ADAPTER 1 EACH in D5W 250 ML IV SCH ×2 (00:14→18:26)
[2016-05-25] MEDS: SODIUM CHLORIDE 0.9% INJ 10 ML SYR IV PRN ×3 (01:32→22:56)
[2016-05-25 05:35] VITALS: BP 123/61
[2016-05-25] MEDS: SODIUM CHLORIDE 0.9% INJ 10 ML SYR IV SCH ×2 (05:45→18:26)
[2016-05-25 06:31] LABS: BASO % 0.5 % (0.0-1.0); EOS # 0.3 K/mm3 (0.0-0.50); EOS % 4.4 % (0.0-3.0); LARGE UNSTAINED CELL # 0.2 K/mm3 (0.0-0.4); LARGE UNSTAINED CELL % 3.2 % (0.0-4.0); LYMPH # 2.4 K/mm3 (1.5-4.5); LYMPH % 33.4 % (24.0-44.0); MEAN CORPUSCULAR HEMOGLOBIN 29.7 pg (27.0-33.0); MEAN CORPUSCULAR HGB CONC 31.5 g/dl (32.0-36.5); MEAN CORPUSCULAR VOLUME 94.5 fl (80.0-96.0); MONO # 0.6 K/mm3 (0.0-0.8); MONO % 7.6 % (0.0-5.0); NEUTROPHILS # 3.7 K/mm3 (1.8-7.7); NEUTROPHILS % 50.9 % (36.0-66.0); PLATELET COUNT, AUTOMATED 380 k/mm3 (150-450); RED CELL DISTRIBUTION WIDTH 13.9 % (11.5-14.5); WHITE BLOOD COUNT 7.3 K/mm3 (4.0-10.0)
[2016-05-25 06:48] LABS: ALBUMIN 3.2 GM/DL (3.2-5.2); ALBUMIN/GLOBULIN RATIO 0.86 (1.00-1.93); ALKALINE PHOSPHATASE 76 U/L (45-117); ALT/SGPT 20 U/L (12-78); ANION GAP 9 MEQ/L (8-16); AST/SGOT 14 U/L (15-37); BILIRUBIN,TOTAL 0.3 MG/DL (0.2-1.0); BLOOD UREA NITROGEN 16 MG/DL (7-18); CALCIUM LEVEL 9.3 MG/DL (8.8-10.2); CARBON DIOXIDE LEVEL 25 MEQ/L (21-32); CHLORIDE LEVEL 108 MEQ/L (98-107); CREATININE FOR GFR 0.66 MG/DL (0.55-1.02); GLOMERULAR FILTRATION RATE > 60.0 (>39); GLUCOSE, FASTING 94 MG/DL (83-110); POTASSIUM SERUM 4.1 MEQ/L (3.5-5.1); SODIUM LEVEL 142 MEQ/L (136-145); TOTAL PROTEIN 6.9 GM/DL (6.4-8.2)
[2016-05-25] MEDS: ADVAIR DISKUS 250/50 INH PWD INH SCH ×2 (07:48→20:26)
--- NOTE | 2016-05-25 07:55 | IPNPDOC ---
Subjective General Date Seen The patient was seen on 05/25/16. Subjective Chief Complaint/HPI The patient is a 70-year-old female admitted with a reason for visit of Metabolic Encephalopathy. Events since last encounter Seen and evaluated on 4PAV. No changes overnight. General: Reports: Normal Appetite, Denies: Chills, Fatigue, Malaise, Night Sweats Skin: Denies: Breakdown, Lesions, Rash Pulmonary: Denies: Cough, Dyspnea, Other Symptoms, Pleuritic Chest Pain Cardiovascular: Denies: Chest Pain, Lt Headedness, Orthopnea, Palpitations, Paroxysmal Noc. Dyspnea Gastrointestinal: Denies: Abdominal Pain, Constipation, Diarrhea, Nausea, Vomiting Objective Physical Examination General Exam: Positive: Alert, No Acute Distress Eye Exam: Positive: PERRLA, Negative: Sclera icteric ENT Exam: Positive: Mucous membr. moist/pink, Pharynx Normal Neck Exam: Positive: Supple, Negative: JVD, thyromegaly Chest Exam: Positive: Clear to auscultation, Diminished Heart Exam: Positive: Normal S1, Normal S2, Rate Normal, Regular Rhythm, Negative: Murmurs, Rubs Abdomen Exam: Positive: Normal bowel sounds, Soft, Negative: Hepatospenomegaly, Tenderness Extremity Exam: Positive: Normal pulses, Negative: Clubbing, Cyanosis, Edema Skin Exam: Positive: Nl turgor and temperature, Negative: Breakdown Neuro Exam: Positive: Other ( Today she is asking appropriate questions and is witty and interactive. No focal deficit) Psych Exam: Positive: Other Assessment /Plan Problems Problems: (1) Nonfunctioning ventriculoperitoneal shunt Status: Acute Problem Text: 05/24/2016: See notes below for plan. No changes. 05/23 - Had LP on 05/[address] Kumari. His note advises to repeat spinal tap in several days or sooner if needed to drain up to 30 ml of CSF, as the the LP from 05/20 just [address] Lao from [place] is following and advises continuing the Vanco until 05/27. Will transfer her out of ICU to PCU. 05/22 - Had LP on 05/[address] Kumari. His note advises to repeat spinal tap in several days or sooner if needed to drain up to 30 ml of CSF, as the the LP from 05/20 just [address] Lao from [place] is following and advises continuing the Vanco until 05/27. Not clear that she requires ICU stay at this point. 05/21 - LP yesterday by Dr Kumari. 05/20/16 D5/10 IV vancomycin possibly able to treat c serial therapeutic LP +/- acetazolamide 05/20/16 Tm 99, WBC 7.5, LP took off 12 cc-patient tolerated c mild post-spinal frontal ENRIQUEZ 05/17/16 + S. epidermidis by shunt tap sens to vanco 05/10: The PRODUCT MARKETING DIRECTOR shunt was externalized by neurosurgery tonight because of evidence of infection, then 05/17/[address] Kumari. 05/08 normal shunt study, neurosurgery suggests shunt likely colonized, and hopes to treat with abx; prefers LP and culture to directly culturing from shunt 05/06/16 MRI brain s/c mild hydro s change, no obvious infection (meningitis, shuntitis) (2) Metabolic encephalopathy Status: Acute Response to Treatment: Stable Problem Text: 05/24/2016: unchanged MS. Mildly vague at times yet A/o x 3 05/23 - Pt's mental status seem stable today. She knew she was in [facility]. She knew the year and the president. 05/22 - Pt's mental status seem stable today. She knew she was in [facility]. She knew the year and the president. Nursing is concerned that the patient has been less stable with ambulation and requiring the walker more. Will re-consult PT. 05/21 - Mental status stable. 05/20 - Mental status stable. 2/ - mental status stable 2/3 - mental status improved - up in chair, alert a little vague but at baseline 2/2 - Mental status has improved with externalization of shunt and tx of infection favor secondary to PRODUCT MARKETING DIRECTOR shunt infection (3) Common bile duct (CBD) obstruction Status: Acute Problem Text: 05/24/2016: see plan below. 05/23 - Dr Centeno is planning to remove cholecystectomy drainage tube. This appears to be planned for next week. Dr Lao following as well and her recent note states she would be discussing this with him. 05/22 - Dr Centeno is planning to remove cholecystectomy drainage tube this week. Dr Lao following as well and her note states she would be discussing this with him. 05/20 - Dr Centeno is planning to remove cholecystectomy drainage tube this week. 05/17 Dr. Centeno to remove cholecystostomy tube next week 05/15 - plan to remove the cholecystomy tube at some point - dr. Urbina discussing this with Dr. Centeno and Dr. Cornejo 05/10/16 plan d/w Dr. Centeno-favors repeat cholangiogram +/- catheter removal in 4W 05/07/16 percutaneous transhepatic cholangiogram, distal CBD stricture biopsy ( benign by pathology), CBD stone removal and internal-external biliary drainage catheter placement by Dr. Centeno 05/06/16 ERCP unable to perform cholangiogram-Chantal to ask IR for CBD stent placement . (4) COPD (chronic obstructive pulmonary disease) Status: Chronic Response to Treatment: Stable Problem Text: Respiratory status stable. (5) Hypertension Status: Chronic Problem Text: 05/20 - Amlodipine was decreased to 5 mg daily. (6) Cerebral aneurysm Permanent Comment: s/p ICA/basilar coiling, s/p PRODUCT MARKETING DIRECTOR shunt 2014 Last Edited By: Yoseph Medina MD on May 10, 2016 13:40 Status: Chronic Response to Treatment: Stable Problem Text: S/P ICA/Basilar coiling and PRODUCT MARKETING DIRECTOR shunt 2014. (7) Depression Status: Chronic Response to Treatment: Stable Problem Text: stable. (8) Tobacco use Status: Chronic Problem Text: 7 mg nicotine patch was ordered to help her with cravings. (9) S/P splenectomy Status: Chronic Response to Treatment: Stable Problem Text: obviously higher sepsis risk Plan/VTE VTE Prophylaxis Ordered?: Yes (Lovenox) Plan Therapy: PT, OT VS, I&O, 24H, Fishbone Vital Signs/I&O Vital Signs Date Time Temp Pulse Resp B/P Pulse Ox O2 Delivery O2 Flow Rate FiO2 05/25/16 05:35 97.0 65 17 123/61 94 Room Air I&O- Last 24 Hours up to 6 AM 05/25/16 06:00 Intake Total 1230 ml Output Total 1300 ml Balance -70 ml Laboratory Data 24H LABS Laboratory Tests 2 05/25/16 05:57: Blood Urea Nitrogen 16, Creatinine 0.66, Sodium Level 142, Potassium Level 4.1, Chloride Level 108H, Carbon Dioxide Level 25, Calcium Level 9.3, Aspartate Amino Transf (AST/SGOT) 14L, Alanine Aminotransferase (ALT/SGPT) 20, Alkaline Phosphatase 76, Total Bilirubin 0.3, Total Protein 6.9, Albumin 3.2, Albumin/ Globulin Ratio 0.86L, Anion Gap 9, White Blood Count 7.3, Red Blood Count 3.97L , Hemoglobin 11.8L, Hematocrit 37.5, Mean Corpuscular Volume 94.5, Mean Corpuscular Hemoglobin 29.7, Mean Corpuscular Hemoglobin Concent 31.5L, Red Cell Distribution Width 13.9, Platelet Count 380, Neutrophils (%) (Auto) 50.9, Lymphocytes (%) (Auto) 33.4, Monocytes (%) (Auto) 7.6H, Eosinophils (%) (Auto) 4.4H, Basophils (%) (Auto) 0.5, Neutrophils # (Auto) 3.7, Lymphocytes # (Auto) 2.4, Monocytes # (Auto) 0.6, Eosinophils # (Auto) 0.3, Basophils # (Auto) 0.0, Glomerular Filtration Rate > 60.0, Large Unclassified Cells # 0.2, Large Unclassified Cells % 3.2 CBC/BMP Laboratory Tests 05/25/16 05:57 Calcium Level 9.3, Aspartate Amino Transf (AST/SGOT) 14 L, Alanine Aminotransferase (ALT/SGPT) 20, Alkaline Phosphatase 76, Total Bilirubin 0.3, Total Protein 6.9, Albumin 3.2, Red Blood Count 3.97 L, Mean Corpuscular Volume 94.5, Mean Corpuscular Hemoglobin 29.7, Mean Corpuscular Hemoglobin Concent 31.5 L, Red Cell Distribution Width 13.9, Neutrophils (%) (Auto) 50.9, Lymphocytes (%) (Auto) 33.4, Monocytes (%) (Auto) 7.6 H, Eosinophils (%) (Auto) 4.4 H, Basophils (%) (Auto) 0.5, Neutrophils # (Auto) 3.7, Lymphocytes # (Auto) 2.4, Monocytes # (Auto) 0.6, Eosinophils # (Auto) 0.3, Basophils # (Auto) 0.0 Microbiology Microbiology 05/20/16 Gram Stain - Final, Resulted 05/20/16 CSF Culture - Preliminary, Resulted 05/17/16 Gram Stain - Final, Complete 05/17/16 CSF Culture - Final, Complete Staphylococcus Epidermidis 05/16/16 Fungal Smear, Received Pending 05/16/16 Fungal Culture, Received Pending 05/16/16 Gram Stain - Final, Complete 05/16/16 CSF Culture - Final, Complete Staphylococcus Epidermidis 05/16/16 Anaerobic Culture - Final, Complete GME ATTESTATION GME ATTESTATION My preceptor for this patient encounter was physically present in the building during the encounter and was fully available. As needed, all aspects of the patient interview, examination, medical decision making process, and medical care plan development were reviewed and approved by the preceptor. Preceptor is aware and concurs with the plan as stated in the body of this note and will attest to such by his/her cosignature. ATTENDING NOTE Agree with plan and findings as noted by Dr. Chavarria. FERMIN CHAVARRIA DO May 25, 2016 07:55 Roshan Belcher MD May 25, 2016 09:16
[2016-05-25] MEDS: NYSTATIN CREAM 15 GM TOP SCH ×2 (08:16→20:31)
[2016-05-25] MEDS: POTASSIUM CHLORIDE 10 MEQ SR TABLET PO SCH ×2 (08:17→20:29)
[2016-05-25] MEDS: OMEPRAZOLE 20 MG CAP PO SCH (08:17)
[2016-05-25] MEDS: amLODIPine 5 MG TAB PO SCH (08:20)
[2016-05-25] MEDS: ENOXAPARIN 40 MG/0.4 ML SYRINGE (J1650) SC SCH (08:25)
[2016-05-25 13:55] VITALS: BP 147/63
[2016-05-25] MEDS: SERTRALINE HCL 50 MG TAB PO SCH (20:29)
[2016-05-25] MEDS: ACETAMINOPHEN TAB 650MG DOSE (2X325MG) PO PRN (20:30)
[2016-05-25] MEDS: NICOTINE 7 MG/24 HR TRANSDERMAL TD SCH (20:31)
[2016-05-25 22:00] VITALS: BP 111/53
[2016-05-26] MEDS: SODIUM CHLORIDE 0.9% INJ 10 ML SYR IV SCH ×2 (05:32→18:00)
[2016-05-26 06:00] VITALS: BP 154/70
[2016-05-26 06:36] LABS: BASO % 0.4 % (0.0-1.0); EOS # 0.3 K/mm3 (0.0-0.50); EOS % 4.8 % (0.0-3.0); LARGE UNSTAINED CELL # 0.2 K/mm3 (0.0-0.4); LYMPH # 2.8 K/mm3 (1.5-4.5); MEAN CORPUSCULAR HEMOGLOBIN 30.4 pg (27.0-33.0); MEAN CORPUSCULAR HGB CONC 32.4 g/dl (32.0-36.5); MEAN CORPUSCULAR VOLUME 93.9 fl (80.0-96.0); MONO # 0.5 K/mm3 (0.0-0.8); MONO % 7.2 % (0.0-5.0); NEUTROPHILS % 43.6 % (36.0-66.0); PLATELET COUNT, AUTOMATED 365 k/mm3 (150-450); RED CELL DISTRIBUTION WIDTH 13.9 % (11.5-14.5); WHITE BLOOD COUNT 6.9 K/mm3 (4.0-10.0)
[2016-05-26 07:06] LABS: ALBUMIN/GLOBULIN RATIO 0.79 (1.00-1.93); ALKALINE PHOSPHATASE 79 U/L (45-117); ALT/SGPT 22 U/L (12-78); ANION GAP 9 MEQ/L (8-16); AST/SGOT 14 U/L (15-37); BILIRUBIN,TOTAL 0.2 MG/DL (0.2-1.0); BLOOD UREA NITROGEN 19 MG/DL (7-18); CALCIUM LEVEL 9.2 MG/DL (8.8-10.2); CARBON DIOXIDE LEVEL 25 MEQ/L (21-32); CHLORIDE LEVEL 108 MEQ/L (98-107); CREATININE FOR GFR 0.72 MG/DL (0.55-1.02); GLOMERULAR FILTRATION RATE > 60.0 (>39); GLUCOSE, FASTING 96 MG/DL (83-110); POTASSIUM SERUM 4.3 MEQ/L (3.5-5.1); SODIUM LEVEL 142 MEQ/L (136-145); TOTAL PROTEIN 6.8 GM/DL (6.4-8.2)
[2016-05-26] MEDS: ADVAIR DISKUS 250/50 INH PWD INH SCH ×2 (07:33→19:29)
[2016-05-26] MEDS: amLODIPine 5 MG TAB PO SCH (08:06)
[2016-05-26] MEDS: POTASSIUM CHLORIDE 10 MEQ SR TABLET PO SCH ×2 (08:06→20:20)
[2016-05-26] MEDS: OMEPRAZOLE 20 MG CAP PO SCH (08:06)
[2016-05-26] MEDS: ENOXAPARIN 40 MG/0.4 ML SYRINGE (J1650) SC SCH (08:06)
[2016-05-26] MEDS: NYSTATIN CREAM 15 GM TOP SCH ×2 (08:06→20:21)
--- NOTE | 2016-05-26 08:42 | IPNPDOC ---
Subjective General Date Seen The patient was seen on 05/26/16. Subjective Chief Complaint/HPI The patient is a 70-year-old female admitted with a reason for visit of Metabolic Encephalopathy. Events since last encounter Pt states she feels a little nauseas today. Denies any vomiting. Denies any current Abd pain. Sometimes some discomfort at the sites of her drains. Denies any other new issues. Denies CP, SOB. Constitutional: Denies: Chills, Fever Pulmonary: Denies: Dyspnea Cardiovascular: Denies: Chest Pain Gastrointestinal: Denies: Abdominal Pain, Nausea, Vomiting Objective Physical Examination General Exam: Positive: Alert, No Acute Distress Eye Exam: Positive: PERRLA, Negative: Sclera icteric ENT Exam: Positive: Mucous membr. moist/pink, Pharynx Normal Neck Exam: Positive: Supple, Negative: JVD, thyromegaly Chest Exam: Positive: Clear to auscultation, Diminished Heart Exam: Positive: Normal S1, Normal S2, Rate Normal, Regular Rhythm, Negative: Murmurs, Rubs Abdomen Exam: Positive: Normal bowel sounds, Soft, Negative: Hepatospenomegaly, Tenderness Extremity Exam: Positive: Normal pulses, Negative: Clubbing, Cyanosis, Edema Skin Exam: Positive: Nl turgor and temperature, Negative: Breakdown Neuro Exam: Positive: Other ( Today she is asking appropriate questions and is witty and interactive. No focal deficit) Psych Exam: Positive: Other Assessment /Plan Problems Problems: (1) Nonfunctioning ventriculoperitoneal shunt Status: Acute Problem Text: 05/26 - Had LP on 05/[address]mari. Dr Tashia mckoy MD is following and advises continuing the Vanco until 05/27. However, spinal fluid cx collected 05/20 just became positive for Staph epi. Therefore, Dr Lao should be notified tomorrow of this. 05/24/2016: See notes below for plan. No changes. 05/23 - Had LP on 05/[address] Kumari. His note advises to repeat spinal tap in several days or sooner if needed to drain up to 30 ml of CSF, as the the LP from 05/[address] just [address] Lao from [place] is following and advises continuing the Vanco until 05/27. Will transfer her out of ICU to PCU. 05/22 - Had LP on 05/[address] Kumari. His note advises to repeat spinal tap in several days or sooner if needed to drain up to 30 ml of CSF, as the the LP from 05/20 just [address] Lao from [place] is following and advises continuing the Vanco until 05/27. Not clear that she requires ICU stay at this point. 05/21 - LP yesterday by Dr Kumari. 05/20/16 D5/10 IV vancomycin possibly able to treat c serial therapeutic LP +/- acetazolamide 05/20/16 Tm 99, WBC 7.5, LP took off 12 cc-patient tolerated c mild post-spinal frontal ENRIQUEZ 05/17/16 + S. epidermidis by shunt tap sens to vanco 05/10: The ACCOUNTING SYSTEMS MANAGER shunt was externalized by neurosurgery tonight because of evidence of infection, then 05/17/[address] Kumari. 05/08 normal shunt study, neurosurgery suggests shunt likely colonized, and hopes to treat with abx; prefers LP and culture to directly culturing from shunt 05/06/16 MRI brain s/c mild hydro s change, no obvious infection (meningitis, shuntitis) (2) Metabolic encephalopathy Status: Acute Response to Treatment: Stable Problem Text: 05/24/2016: unchanged MS. Mildly vague at times yet A/o x 3 05/23 - Pt's mental status seem stable today. She knew she was in [facility]. She knew the year and the president. 05/22 - Pt's mental status seem stable today. She knew she was in [facility]. She knew the year and the president. Nursing is concerned that the patient has been less stable with ambulation and requiring the walker more. Will re-consult PT. 05/21 - Mental status stable. 05/20 - Mental status stable. 05/18 - mental status stable 05/17 - mental status improved - up in chair, alert a little vague but at baseline 2 - Mental status has improved with externalization of shunt and tx of infection favor secondary to ACCOUNTING SYSTEMS MANAGER shunt infection (3) Common bile duct (CBD) obstruction Status: Acute Problem Text: 05/26 - Dr Centeno is planning to remove cholecystectomy drainage tube in the upcoming week. Dr Lao following. 05/24/2016: see plan below. 05/23 - Dr Centeno is planning to remove cholecystectomy drainage tube. This appears to be planned for next week. Dr Tashia bernard as well and her recent note states she would be discussing this with him. 05/22 - Dr Centeno is planning to remove cholecystectomy drainage tube this week. Dr Tashia bernard as well and her note states she would be discussing this with him. 05/20 - Dr Centeno is planning to remove cholecystectomy drainage tube this week. 05/17 Dr. Centeno to remove cholecystostomy tube next week 05/15 - plan to remove the cholecystomy tube at some point - dr. Urbina discussing this with Dr. Centeno and Dr. Cornejo 05/10/16 plan d/w Dr. Centeno-favors repeat cholangiogram +/- catheter removal in 4W 05/07/16 percutaneous transhepatic cholangiogram, distal CBD stricture biopsy ( benign by pathology), CBD stone removal and internal-external biliary drainage catheter placement by Dr. Centeno 05/06/16 ERCP unable to perform cholangiogram-Chantal to ask IR for CBD stent placement . (4) COPD (chronic obstructive pulmonary disease) Status: Chronic Response to Treatment: Stable Problem Text: Respiratory status stable. (5) Hypertension Status: Chronic Problem Text: 05/20 - Amlodipine was decreased to 5 mg daily. (6) Cerebral aneurysm Permanent Comment: s/p ICA/basilar coiling, s/p ACCOUNTING SYSTEMS MANAGER shunt 2014 Last Edited By: Yoseph Medina MD on May 10, 2016 13:40 Status: Chronic Response to Treatment: Stable Problem Text: S/P ICA/Basilar coiling and ACCOUNTING SYSTEMS MANAGER shunt 2014. (7) Depression Status: Chronic Response to Treatment: Stable Problem Text: stable. (8) Tobacco use Status: Chronic Problem Text: 7 mg nicotine patch was ordered to help her with cravings. (9) S/P splenectomy Status: Chronic Response to Treatment: Stable Problem Text: obviously higher sepsis risk Plan/VTE VTE Prophylaxis Ordered?: Yes (Lovenox) Plan Therapy: PT, OT VS, I&O, 24H, Fishbone Vital Signs/I&O Vital Signs Date Time Temp Pulse Resp B/P Pulse Ox O2 Delivery O2 Flow Rate FiO2 05/26/16 08:06 66 154/70 05/26/16 06:00 98.3 20 95 05/25/16 13:55 Room Air I&O- Last 24 Hours up to 6 AM 05/26/16 06:00 Intake Total 2160 ml Output Total 475 ml Balance 1685 ml Laboratory Data 24H LABS Laboratory Tests 2 05/26/16 05:44: Blood Urea Nitrogen 19H, Creatinine 0.72, Sodium Level 142, Potassium Level 4.3 , Chloride Level 108H, Carbon Dioxide Level 25, Calcium Level 9.2, Aspartate Amino Transf (AST/SGOT) 14L, Alanine Aminotransferase (ALT/SGPT) 22, Alkaline Phosphatase 79, Total Bilirubin 0.2, Total Protein 6.8, Albumin 3.0L, Albumin/ Globulin Ratio 0.79L, Anion Gap 9, White Blood Count 6.9, Red Blood Count 3.65L , Hemoglobin 11.1L, Hematocrit 34.3L, Mean Corpuscular Volume 93.9, Mean Corpuscular Hemoglobin 30.4, Mean Corpuscular Hemoglobin Concent 32.4, Red Cell Distribution Width 13.9, Platelet Count 365, Neutrophils (%) (Auto) 43.6, Lymphocytes (%) (Auto) 41.0, Monocytes (%) (Auto) 7.2H, Eosinophils (%) (Auto) 4.8H, Basophils (%) (Auto) 0.4, Neutrophils # (Auto) 3.0, Lymphocytes # (Auto) 2.8, Monocytes # (Auto) 0.5, Eosinophils # (Auto) 0.3, Basophils # (Auto) 0.0, Glomerular Filtration Rate > 60.0, Large Unclassified Cells # 0.2, Large Unclassified Cells % 3.0 CBC/BMP Laboratory Tests 05/26/16 05:44 Calcium Level 9.2, Aspartate Amino Transf (AST/SGOT) 14 L, Alanine Aminotransferase (ALT/SGPT) 22, Alkaline Phosphatase 79, Total Bilirubin 0.2, Total Protein 6.8, Albumin 3.0 L, Red Blood Count 3.65 L, Mean Corpuscular Volume 93.9, Mean Corpuscular Hemoglobin 30.4, Mean Corpuscular Hemoglobin Concent 32.4, Red Cell Distribution Width 13.9, Neutrophils (%) (Auto) 43.6, Lymphocytes (%) (Auto) 41.0, Monocytes (%) (Auto) 7.2 H, Eosinophils (%) (Auto) 4.8 H, Basophils (%) (Auto) 0.4, Neutrophils # (Auto) 3.0, Lymphocytes # (Auto) 2.8, Monocytes # (Auto) 0.5, Eosinophils # (Auto) 0.3, Basophils # (Auto) 0.0 Microbiology Microbiology 05/20/16 Gram Stain - Final, Complete 05/20/16 CSF Culture - Final, Complete Staphylococcus Epidermidis 05/17/16 Gram Stain - Final, Complete 05/17/16 CSF Culture - Final, Complete Staphylococcus Epidermidis 05/16/16 Fungal Smear, Received Pending 05/16/16 Fungal Culture, Received Pending 05/16/16 Gram Stain - Final, Complete 05/16/16 CSF Culture - Final, Complete Staphylococcus Epidermidis 05/16/16 Anaerobic Culture - Final, Complete Attending Note Attending Note Patient seen and examined. Agree with findings and plan of care as noted by Mr. Dubois. Rip Dubois May 26, 2016 08:42 Roshan Belcher MD May 26, 2016 13:01
[2016-05-26] MEDS: ACETAMINOPHEN TAB 650MG DOSE (2X325MG) PO PRN (10:00)
[2016-05-26] MEDS: VANCOMYCIN HCL 1,000 MG, VIAL MATE ADAPTER 1 EACH in D5W 250 ML IV SCH (12:19)
[2016-05-26 14:00] VITALS: BP 117/57
[2016-05-26] MEDS: SERTRALINE HCL 50 MG TAB PO SCH (20:20)
[2016-05-26] MEDS: NICOTINE 7 MG/24 HR TRANSDERMAL TD SCH (20:21)
[2016-05-26] MEDS: traMADol 50 MG TAB PO PRN (21:57)
[2016-05-26 22:00] VITALS: BP 134/62
[2016-05-27] MEDS: ONDANSETRON 4MG/2ML VIAL (J2405) IV PRN (05:19)
--- NOTE | 2016-05-27 05:45 | REP ---
CT BRAIN WITHOUT CONTRAST: 05/26/2016. Comparison: 05/24/2016, 05/18/2016. Clinical history: Encephalopathy. Findings: Soft-tissue and bone windows reviewed for each slice level and a dedicated reconstruction with metal artifact reduction algorithm because of the aneurysmal coiling at the [place]. There is ventriculomegaly with the transverse dimension of the frontal horns of the bilateral lateral ventricles 43 mm today, 44 mm on 05/24/2016 and 05/18/2016. The third ventricle is dilated with 15 mm transverse diameter, previously 15-16 mm. Basal cisterns are intact. There is heterogeneous low attenuation white matter change in both hemispheres. Only trace pneumocephalus at the dural margin of the inner table pancho the frontal bone at site of the ventriculostomy drain which was recently removed. This keeps decreasing in size over time. There is no coiling noted at the [place] to the right and centrally posteriorly. Basal cisterns intact. Some haziness of mastoid air cells on the right while the left are clear and the visualized sinuses are clear. The calvarium and skull base are without fracture or focal lesion. Impression: 1. Ventriculomegaly, unchanged. No change in the dilated and third ventricle and only a millimeter decreased and the frontal horns of the lateral ventricles from right to left are unchanged as described above. 2. Chronic small vessel white matter ischemic changes of aging and pneumocephalus at the site of the recently removed ventriculostomy drain from the frontal region. 3. Aneurysmal coiling centrally and to the right side of the [place], unchanged. Signed by Anthony Eason MD 05/27/2016 09:08 A
[2016-05-27 06:00] VITALS: BP 150/70
[2016-05-27] MEDS: VANCOMYCIN HCL 1,000 MG, VIAL MATE ADAPTER 1 EACH in D5W 250 ML IV SCH (06:00)
[2016-05-27] MEDS: SODIUM CHLORIDE 0.9% INJ 10 ML SYR IV SCH ×2 (06:01→16:42)
[2016-05-27 06:28] LABS: BASO % 0.6 % (0.0-1.0); EOS # 0.3 K/mm3 (0.0-0.50); EOS % 4.2 % (0.0-3.0); LARGE UNSTAINED CELL # 0.3 K/mm3 (0.0-0.4); LARGE UNSTAINED CELL % 3.7 % (0.0-4.0); LYMPH # 2.5 K/mm3 (1.5-4.5); LYMPH % 36.4 % (24.0-44.0); MEAN CORPUSCULAR HEMOGLOBIN 30.8 pg (27.0-33.0); MEAN CORPUSCULAR HGB CONC 32.6 g/dl (32.0-36.5); MEAN CORPUSCULAR VOLUME 94.5 fl (80.0-96.0); MONO # 0.6 K/mm3 (0.0-0.8); MONO % 8.7 % (0.0-5.0); NEUTROPHILS # 3.1 K/mm3 (1.8-7.7); NEUTROPHILS % 46.5 % (36.0-66.0); PLATELET COUNT, AUTOMATED 367 k/mm3 (150-450); RED CELL DISTRIBUTION WIDTH 13.7 % (11.5-14.5); WHITE BLOOD COUNT 6.7 K/mm3 (4.0-10.0)
[2016-05-27 06:32] LABS: ALBUMIN 3.2 GM/DL (3.2-5.2); ALBUMIN/GLOBULIN RATIO 0.91 (1.00-1.93); ALKALINE PHOSPHATASE 74 U/L (45-117); ALT/SGPT 18 U/L (12-78); ANION GAP 8 MEQ/L (8-16); AST/SGOT 14 U/L (15-37); BILIRUBIN,TOTAL 0.2 MG/DL (0.2-1.0); BLOOD UREA NITROGEN 16 MG/DL (7-18); CALCIUM LEVEL 9.4 MG/DL (8.8-10.2); CARBON DIOXIDE LEVEL 27 MEQ/L (21-32); CHLORIDE LEVEL 105 MEQ/L (98-107); CREATININE FOR GFR 0.79 MG/DL (0.55-1.02); GLOMERULAR FILTRATION RATE > 60.0 (>39); GLUCOSE, FASTING 90 MG/DL (83-110); POTASSIUM SERUM 4.2 MEQ/L (3.5-5.1); SODIUM LEVEL 140 MEQ/L (136-145); TOTAL PROTEIN 6.7 GM/DL (6.4-8.2)
[2016-05-27] MEDS: ADVAIR DISKUS 250/50 INH PWD INH SCH ×2 (07:24→19:14)
--- NOTE | 2016-05-27 07:40 | IPNPDOC ---
Subjective General Date Seen The patient was seen on 05/27/16. Subjective Chief Complaint/HPI The patient is a 70-year-old female admitted with a reason for visit of Metabolic Encephalopathy. Events since last encounter c/o nausea q am. Has been occurring for a week. Las BM yesterday, states was loose. Denies abdominal pain. Given Zofran with relief. Constitutional: Denies: Chills, Fever ENT: Denies: Head Aches Pulmonary: Denies: Cough, Dyspnea Cardiovascular: Denies: Chest Pain, Palpitations Gastrointestinal: Reports: Nausea, Denies: Abdominal Pain, Constipation, Diarrhea, Vomiting Genitourinary: Denies: Dysuria, Frequency Neurological: Reports: Other Symptoms (slightly tatxic gait), Denies: Weakness Psych: Reports: Mood Normal Objective Physical Examination General Exam: Positive: Alert, No Acute Distress Eye Exam: Positive: PERRLA, Negative: Sclera icteric ENT Exam: Positive: Mucous membr. moist/pink, Pharynx Normal Neck Exam: Positive: Supple, Negative: JVD, thyromegaly Chest Exam: Positive: Clear to auscultation, Diminished Heart Exam: Positive: Normal S1, Normal S2, Rate Normal, Regular Rhythm, Negative: Murmurs, Rubs Abdomen Exam: Positive: Hernia (midline incisional hernia, soft, slightly tender), Normal bowel sounds, Other, Soft, Negative: Hepatospenomegaly, Tenderness Extremity Exam: Positive: Normal pulses, Negative: Clubbing, Cyanosis, Edema Skin Exam: Positive: Nl turgor and temperature, Negative: Breakdown Neuro Exam: Positive: Other ( Today she is asking appropriate questions and is witty and interactive. No focal deficit) Psych Exam: Positive: Other Assessment /Plan Problems Problems: (1) Infection of BEHAVIORAL INTERVENTIONIST (ventriculoperitoneal) shunt Status: Acute Problem Text: 05/20 repeat LP CSF CX S. epi 05/26 CT head stable 05/27/2016: WBC 6.7, Tm 99.7-given stable, but now repeat CSF from 05/20 +, will need to repeat-d/w Tashia 05/24/2016: See notes below for plan. No changes. 05/23 - Had LP on 05/[address] Kumari. His note advises to repeat spinal tap in several days or sooner if needed to drain up to 30 ml of CSF, as the the LP from 05/20 just [address] Lao from [place] is following and advises continuing the Vanco until 05/27. Will transfer her out of ICU to PCU. 05/22 - Had LP on 05/[address] Kumari. His note advises to repeat spinal tap in several days or sooner if needed to drain up to 30 ml of CSF, as the the LP from 05/20 just [address] Lao from [place] is following and advises continuing the Vanco until 05/27. Not clear that she requires ICU stay at this point. 05/21 - LP yesterday by Dr Kumari. 05/20/16 D5/10 IV vancomycin possibly able to treat c serial therapeutic LP +/- acetazolamide 05/20/16 Tm 99, WBC 7.5, LP took off 12 cc-patient tolerated c mild post-spinal frontal ENRIQUEZ 05/17/16 + S. epidermidis by shunt tap sens to vanco 05/10: The BEHAVIORAL INTERVENTIONIST shunt was externalized by neurosurgery tonight because of evidence of infection, then 05/17/[address] Kumari. 05/08 normal shunt study, neurosurgery suggests shunt likely colonized, and hopes to treat with abx; prefers LP and culture to directly culturing from shunt 05/06/16 MRI brain s/c mild hydro s change, no obvious infection (meningitis, shuntitis) (2) Incisional hernia Status: Acute Problem Text: ? new onset. ASked for re-read of Ct scan completed 118 to see if this is a new finding. May be contributing factor to nausea. (3) Metabolic encephalopathy Status: Acute Response to Treatment: Stable Problem Text: 05/27/2016: unchanged. 05/24/2016: unchanged MS. Mildly vague at times yet A/o x 3 05/23 - Pt's mental status seem stable today. She knew she was in [facility]. She knew the year and the president. 05/22 - Pt's mental status seem stable today. She knew she was in [facility]. She knew the year and the president. Nursing is concerned that the patient has been less stable with ambulation and requiring the walker more. Will re-consult PT. 05/21 - Mental status stable. 05/20 - Mental status stable. 05/18 - mental status stable 05/17 - mental status improved - up in chair, alert a little vague but at baseline 05/16 - Mental status has improved with externalization of shunt and tx of infection favor secondary to BEHAVIORAL INTERVENTIONIST shunt infection (4) Common bile duct (CBD) obstruction Status: Acute Problem Text: 05/26 - Dr Centeno is planning to remove cholecystectomy drainage tube in the upcoming week. Dr Tashia bernard. 05/24/2016: see plan below. 05/23 - Dr Centeno is planning to remove cholecystectomy drainage tube. This appears to be planned for next week. Dr Tashia bernard as well and her recent note states she would be discussing this with him. 05/22 - Dr Centeno is planning to remove cholecystectomy drainage tube this week. Dr Tashia bernard as well and her note states she would be discussing this with him. 05/20 - Dr Centeno is planning to remove cholecystectomy drainage tube this week. 05/17 Dr. Centeno to remove cholecystostomy tube next week 05/15 - plan to remove the cholecystomy tube at some point - dr. Urbina discussing this with Dr. Centeno and Dr. Cornejo 05/10/16 plan d/w Dr. Centeno-favors repeat cholangiogram +/- catheter removal in 4W 05/07/16 percutaneous transhepatic cholangiogram, distal CBD stricture biopsy ( benign by pathology), CBD stone removal and internal-external biliary drainage catheter placement by Dr. Centeno 05/06/16 ERCP unable to perform cholangiogram-Chantal to ask IR for CBD stent placement . (5) COPD (chronic obstructive pulmonary disease) Status: Chronic Response to Treatment: Stable Problem Text: Respiratory status stable. (6) Hypertension Status: Chronic Problem Text: 05/20 - Amlodipine was decreased to 5 mg daily. (7) Cerebral aneurysm Permanent Comment: s/p ICA/basilar coiling, s/p BEHAVIORAL INTERVENTIONIST shunt 2014 Last Edited By: Yoseph Medina MD on May 10, 2016 13:40 Status: Chronic Response to Treatment: Stable Problem Text: S/P ICA/Basilar coiling and BEHAVIORAL INTERVENTIONIST shunt 2014. (8) S/P splenectomy Status: Chronic Response to Treatment: Stable Problem Text: obviously higher sepsis risk Plan/VTE VTE Prophylaxis Ordered?: Yes (Lovenox) Plan Therapy: PT, OT VS, I&O, 24H, Fishbone Vital Signs/I&O Vital Signs Date Time Temp Pulse Resp B/P Pulse Ox O2 Delivery O2 Flow Rate FiO2 05/27/16 06:00 98.0 66 20 150/70 93 05/26/16 14:00 Room Air I&O- Last 24 Hours up to 6 AM 05/27/16 06:00 Intake Total 2070 ml Output Total 1650 ml Balance 420 ml Laboratory Data 24H LABS Laboratory Tests 2 05/27/16 05:54: Blood Urea Nitrogen 16, Creatinine 0.79, Sodium Level 140, Potassium Level 4.2, Chloride Level 105, Carbon Dioxide Level 27, Calcium Level 9.4, Aspartate Amino Transf (AST/SGOT) 14L, Alanine Aminotransferase (ALT/SGPT) 18, Alkaline Phosphatase 74, Total Bilirubin 0.2, Total Protein 6.7, Albumin 3.2, Albumin/ Globulin Ratio 0.91L, Anion Gap 8, White Blood Count 6.7, Red Blood Count 3.67L , Hemoglobin 11.3L, Hematocrit 34.7L, Mean Corpuscular Volume 94.5, Mean Corpuscular Hemoglobin 30.8, Mean Corpuscular Hemoglobin Concent 32.6, Red Cell Distribution Width 13.7, Platelet Count 367, Neutrophils (%) (Auto) 46.5, Lymphocytes (%) (Auto) 36.4, Monocytes (%) (Auto) 8.7H, Eosinophils (%) (Auto) 4.2H, Basophils (%) (Auto) 0.6, Neutrophils # (Auto) 3.1, Lymphocytes # (Auto) 2.5, Monocytes # (Auto) 0.6, Eosinophils # (Auto) 0.3, Basophils # (Auto) 0.0, Glomerular Filtration Rate > 60.0, Large Unclassified Cells # 0.3, Large Unclassified Cells % 3.7 CBC/BMP Laboratory Tests 05/27/16 05:54 Calcium Level 9.4, Aspartate Amino Transf (AST/SGOT) 14 L, Alanine Aminotransferase (ALT/SGPT) 18, Alkaline Phosphatase 74, Total Bilirubin 0.2, Total Protein 6.7, Albumin 3.2, Red Blood Count 3.67 L, Mean Corpuscular Volume 94.5, Mean Corpuscular Hemoglobin 30.8, Mean Corpuscular Hemoglobin Concent 32.6 , Red Cell Distribution Width 13.7, Neutrophils (%) (Auto) 46.5, Lymphocytes (% ) (Auto) 36.4, Monocytes (%) (Auto) 8.7 H, Eosinophils (%) (Auto) 4.2 H, Basophils (%) (Auto) 0.6, Neutrophils # (Auto) 3.1, Lymphocytes # (Auto) 2.5, Monocytes # (Auto) 0.6, Eosinophils # (Auto) 0.3, Basophils # (Auto) 0.0 Microbiology Microbiology 05/20/16 Gram Stain - Final, Complete 05/20/16 CSF Culture - Final, Complete Staphylococcus Epidermidis 05/17/16 Gram Stain - Final, Complete 05/17/16 CSF Culture - Final, Complete Staphylococcus Epidermidis Alvina Fan [facility] May 27, 2016 07:40 Yoseph Medina M.D. May 27, 2016 16:14 Microbiology 05/20/16 Gram Stain - Final, Complete 05/20/16 CSF Culture - Final, Complete Staphylococcus Epidermidis 05/17/16 Gram Stain - Final, Complete 05/17/16 CSF Culture - Final, Complete Staphylococcus Epidermidis Alvina Fan [facility] May 27, 2016 07:40
[2016-05-27] MEDS: POTASSIUM CHLORIDE 10 MEQ SR TABLET PO SCH ×2 (09:00→20:15)
[2016-05-27] MEDS: NYSTATIN CREAM 15 GM TOP SCH ×2 (09:00→20:15)
[2016-05-27] MEDS: ENOXAPARIN 40 MG/0.4 ML SYRINGE (J1650) SC SCH (09:00)
[2016-05-27] MEDS: OMEPRAZOLE 20 MG CAP PO SCH (09:00)
[2016-05-27] MEDS: amLODIPine 5 MG TAB PO SCH (09:00)
[2016-05-27 14:00] VITALS: BP 107/65
[2016-05-27] MEDS: SERTRALINE HCL 50 MG TAB PO SCH (20:15)
[2016-05-27] MEDS: NICOTINE 7 MG/24 HR TRANSDERMAL TD SCH (20:15)
[2016-05-27 22:00] VITALS: BP 118/50
[2016-05-28] MEDS: VANCOMYCIN HCL 1,000 MG, VIAL MATE ADAPTER 1 EACH in D5W 250 ML IV SCH ×2 (00:31→18:14)
[2016-05-28] MEDS: SODIUM CHLORIDE 0.9% INJ 10 ML SYR IV SCH ×2 (05:40→18:14)
[2016-05-28 06:00] VITALS: BP 114/54
[2016-05-28 06:03] LABS: BASO % 0.8 % (0.0-1.0); EOS # 0.3 K/mm3 (0.0-0.50); EOS % 5.1 % (0.0-3.0); LARGE UNSTAINED CELL # 0.3 K/mm3 (0.0-0.4); LARGE UNSTAINED CELL % 4.1 % (0.0-4.0); LYMPH # 2.7 K/mm3 (1.5-4.5); LYMPH % 37.6 % (24.0-44.0); MEAN CORPUSCULAR HEMOGLOBIN 30.3 pg (27.0-33.0); MEAN CORPUSCULAR VOLUME 94.6 fl (80.0-96.0); MONO # 0.6 K/mm3 (0.0-0.8); MONO % 8.4 % (0.0-5.0); NEUTROPHILS # 2.9 K/mm3 (1.8-7.7); PLATELET COUNT, AUTOMATED 382 k/mm3 (150-450); RED CELL DISTRIBUTION WIDTH 14.2 % (11.5-14.5); WHITE BLOOD COUNT 6.5 K/mm3 (4.0-10.0)
[2016-05-28 06:20] LABS: ALBUMIN 3.2 GM/DL (3.2-5.2); ALBUMIN/GLOBULIN RATIO 0.86 (1.00-1.93); ALKALINE PHOSPHATASE 68 U/L (45-117); ALT/SGPT 16 U/L (12-78); ANION GAP 7 MEQ/L (8-16); AST/SGOT 14 U/L (15-37); BILIRUBIN,TOTAL 0.2 MG/DL (0.2-1.0); BLOOD UREA NITROGEN 17 MG/DL (7-18); CALCIUM LEVEL 9.3 MG/DL (8.8-10.2); CARBON DIOXIDE LEVEL 27 MEQ/L (21-32); CHLORIDE LEVEL 106 MEQ/L (98-107); CREATININE FOR GFR 0.77 MG/DL (0.55-1.02); GLOMERULAR FILTRATION RATE > 60.0 (>39); GLUCOSE, FASTING 93 MG/DL (83-110); POTASSIUM SERUM 4.3 MEQ/L (3.5-5.1); SODIUM LEVEL 140 MEQ/L (136-145); TOTAL PROTEIN 6.9 GM/DL (6.4-8.2)
[2016-05-28] MEDS: ADVAIR DISKUS 250/50 INH PWD INH SCH ×2 (08:17→21:09)
--- NOTE | 2016-05-28 08:27 | IPNPDOC ---
Subjective General Date Seen The patient was seen on 05/28/16. Subjective Chief Complaint/HPI The patient is a 70-year-old female admitted with a reason for visit of Metabolic Encephalopathy. Events since last encounter Denies c/o. Constitutional: Denies: Chills, Fever, Night Sweats Cardiovascular: Denies: Chest Pain, Lt Headedness, Orthopnea, Palpitations, Paroxysmal Noc. Dyspnea Gastrointestinal: Denies: Abdominal Pain, Constipation, Diarrhea, Nausea, Vomiting Genitourinary: Denies: Dysuria, Frequency, Incontinence, Retention Neurological: Denies: Change in speech, Confusion, Numbness, Weakness Objective Physical Examination General Exam: Positive: Alert, No Acute Distress Eye Exam: Positive: PERRLA, Negative: Sclera icteric ENT Exam: Positive: Mucous membr. moist/pink, Pharynx Normal Neck Exam: Positive: Supple, Negative: JVD, thyromegaly Chest Exam: Positive: Clear to auscultation, Diminished Heart Exam: Positive: Normal S1, Normal S2, Rate Normal, Regular Rhythm, Negative: Murmurs, Rubs Abdomen Exam: Positive: Hernia (midline incisional hernia, soft, non-tender), Normal bowel sounds, Other, Soft, Negative: Hepatospenomegaly, Tenderness Extremity Exam: Positive: Normal pulses, Negative: Clubbing, Cyanosis, Edema Skin Exam: Positive: Nl turgor and temperature, Negative: Breakdown Neuro Exam: Positive: Other ( Today she is asking appropriate questions and is witty and interactive. No focal deficit) Psych Exam: Positive: Other Assessment /Plan Problems Problems: (1) Infection of IRONWORKER APPRENTICE (ventriculoperitoneal) shunt Status: Acute Problem Text: vancomycin D105/28 05/28 stable MS, afebrile, WBC-per ID can hold on repeat LP if not needing IRONWORKER APPRENTICE shunt-per Kenyetta favor hold repeat IRONWORKER APPRENTICE 05/20 repeat LP CSF CX S. epi 05/26 CT head stable 05/27/2016: WBC 6.7, Tm 99.7-given stable, but now repeat CSF from 05/20 +, will need to repeat-d/w Tashia 05/24/2016: See notes below for plan. No changes. 05/23 - Had LP on 05/[address] Kumari. His note advises to repeat spinal tap in several days or sooner if needed to drain up to 30 ml of CSF, as the the LP from 05/[address] just [address] Lao from [place] is following and advises continuing the Vanco until 05/27. Will transfer her out of ICU to PCU. 05/21 - LP yesterday by Dr Kumari. 05/20/16 D5/10 IV vancomycin possibly able to treat c serial therapeutic LP +/- acetazolamide 05/20/16 Tm 99, WBC 7.5, LP took off 12 cc-patient tolerated c mild post-spinal frontal ENRIQUEZ 05/17/16 + S. epidermidis by shunt tap sens to vanco 05/10: The IRONWORKER APPRENTICE shunt was externalized by neurosurgery tonight because of evidence of infection, then 05/17/[address] Kumari. 05/08 normal shunt study, neurosurgery suggests shunt likely colonized, and hopes to treat with abx; prefers LP and culture to directly culturing from shunt 05/06/16 MRI brain s/c mild hydro s change, no obvious infection (meningitis, shuntitis) (2) Incisional hernia Status: Acute Problem Text: ? new onset. ASked for re-read of Ct scan completed 118 to see if this is a new finding. May be contributing factor to nausea. (3) Metabolic encephalopathy Status: Acute Response to Treatment: Stable Problem Text: 05/27/2016: unchanged. 05/24/2016: unchanged MS. Mildly vague at times yet A/o x 3 05/23 - Pt's mental status seem stable today. She knew she was in [facility]. She knew the year and the president. 05/22 - Pt's mental status seem stable today. She knew she was in [facility]. She knew the year and the president. Nursing is concerned that the patient has been less stable with ambulation and requiring the walker more. Will re-consult PT. 05/21 - Mental status stable. 05/20 - Mental status stable. 05/18 - mental status stable / - mental status improved - up in chair, alert a little vague but at baseline 2 - Mental status has improved with externalization of shunt and tx of infection favor secondary to IRONWORKER APPRENTICE shunt infection (4) Common bile duct (CBD) obstruction Status: Acute Problem Text: 05/26 - Dr Centeno is planning to remove cholecystectomy drainage tube in the upcoming week. Dr Lao following. 05/24/2016: see plan below. 05/23 - Dr Centeno is planning to remove cholecystectomy drainage tube. This appears to be planned for next week. Dr Tashia bernard as well and her recent note states she would be discussing this with him. 05/22 - Dr Centeno is planning to remove cholecystectomy drainage tube this week. Dr Tashia bernard as well and her note states she would be discussing this with him. 05/20 - Dr Centeno is planning to remove cholecystectomy drainage tube this week. 05/17 Dr. Centeno to remove cholecystostomy tube next week 05/15 - plan to remove the cholecystomy tube at some point - dr. Urbina discussing this with Dr. Centeno and Dr. Cornejo 05/10/16 plan d/w Dr. Centeno-favors repeat cholangiogram +/- catheter removal in 4W 05/07/16 percutaneous transhepatic cholangiogram, distal CBD stricture biopsy ( benign by pathology), CBD stone removal and internal-external biliary drainage catheter placement by Dr. Centeno 05/06/16 ERCP unable to perform cholangiogram-Chantal to ask IR for CBD stent placement . (5) COPD (chronic obstructive pulmonary disease) Status: Chronic Response to Treatment: Stable Problem Text: Respiratory status stable. (6) Hypertension Status: Chronic Problem Text: 05/20 - Amlodipine was decreased to 5 mg daily. (7) Cerebral aneurysm Permanent Comment: s/p ICA/basilar coiling, s/p IRONWORKER APPRENTICE shunt 2014 Last Edited By: Yoseph Medina MD on May 10, 2016 13:40 Status: Chronic Response to Treatment: Stable Problem Text: S/P ICA/Basilar coiling and IRONWORKER APPRENTICE shunt 2014. (8) S/P splenectomy Status: Chronic Response to Treatment: Stable Problem Text: obviously higher sepsis risk Plan/VTE VTE Prophylaxis Ordered?: Yes (Lovenox) Plan Therapy: PT, OT VS, I&O, 24H, Fishbone Vital Signs/I&O Vital Signs Date Time Temp Pulse Resp B/P Pulse Ox O2 Delivery O2 Flow Rate FiO2 05/28/16 06:00 98.0 65 18 114/54 92 Room Air I&O- Last 24 Hours up to 6 AM 05/28/16 05:59 Intake Total 1110 ml Output Total 500 ml Balance 610 ml Laboratory Data 24H LABS Laboratory Tests 2 05/28/16 05:45: Blood Urea Nitrogen 17, Creatinine 0.77, Sodium Level 140, Potassium Level 4.3, Chloride Level 106, Carbon Dioxide Level 27, Calcium Level 9.3, Aspartate Amino Transf (AST/SGOT) 14L, Alanine Aminotransferase (ALT/SGPT) 16, Alkaline Phosphatase 68, Total Bilirubin 0.2, Total Protein 6.9, Albumin 3.2, Albumin/ Globulin Ratio 0.86L, Anion Gap 7L, White Blood Count 6.5, Red Blood Count 3.74L , Hemoglobin 11.3L, Hematocrit 35.3L, Mean Corpuscular Volume 94.6, Mean Corpuscular Hemoglobin 30.3, Mean Corpuscular Hemoglobin Concent 32.0, Red Cell Distribution Width 14.2, Platelet Count 382, Neutrophils (%) (Auto) 44.0, Lymphocytes (%) (Auto) 37.6, Monocytes (%) (Auto) 8.4H, Eosinophils (%) (Auto) 5.1H, Basophils (%) (Auto) 0.8, Neutrophils # (Auto) 2.9, Lymphocytes # (Auto) 2.7, Monocytes # (Auto) 0.6, Eosinophils # (Auto) 0.3, Basophils # (Auto) 0.0, Glomerular Filtration Rate > 60.0, Large Unclassified Cells # 0.3, Large Unclassified Cells % 4.1H CBC/BMP Laboratory Tests 05/28/16 05:45 Calcium Level 9.3, Aspartate Amino Transf (AST/SGOT) 14 L, Alanine Aminotransferase (ALT/SGPT) 16, Alkaline Phosphatase 68, Total Bilirubin 0.2, Total Protein 6.9, Albumin 3.2, Red Blood Count 3.74 L, Mean Corpuscular Volume 94.6, Mean Corpuscular Hemoglobin 30.3, Mean Corpuscular Hemoglobin Concent 32.0 , Red Cell Distribution Width 14.2, Neutrophils (%) (Auto) 44.0, Lymphocytes (% ) (Auto) 37.6, Monocytes (%) (Auto) 8.4 H, Eosinophils (%) (Auto) 5.1 H, Basophils (%) (Auto) 0.8, Neutrophils # (Auto) 2.9, Lymphocytes # (Auto) 2.7, Monocytes # (Auto) 0.6, Eosinophils # (Auto) 0.3, Basophils # (Auto) 0.0 Microbiology Microbiology 05/20/16 Gram Stain - Final, Complete 05/20/16 CSF Culture - Final, Complete Staphylococcus Epidermidis Alvina Fan [facility] May 28, 2016 08:26 Yoseph Medina M.D. May 28, 2016 16:21 05/20/16 CSF Culture - Final, Complete Staphylococcus Epidermidis Alvina Fan [facility] May 28, 2016 08:26
[2016-05-28] MEDS: amLODIPine 5 MG TAB PO SCH (09:00)
[2016-05-28] MEDS: POTASSIUM CHLORIDE 10 MEQ SR TABLET PO SCH ×2 (09:43→20:00)
[2016-05-28] MEDS: OMEPRAZOLE 20 MG CAP PO SCH (09:43)
[2016-05-28] MEDS: ENOXAPARIN 40 MG/0.4 ML SYRINGE (J1650) SC SCH (09:44)
[2016-05-28] MEDS: NYSTATIN CREAM 15 GM TOP SCH ×2 (09:44→20:01)
[2016-05-28 09:48] VITALS: BP 100/67
[2016-05-28] MEDS: traMADol 50 MG TAB PO PRN (11:22)
[2016-05-28 14:00] VITALS: BP 117/62
[2016-05-28] MEDS: NICOTINE 7 MG/24 HR TRANSDERMAL TD SCH (20:00)
[2016-05-28] MEDS: SERTRALINE HCL 50 MG TAB PO SCH (20:01)
[2016-05-28 22:00] VITALS: BP 126/60
[2016-05-29] MEDS: SODIUM CHLORIDE 0.9% INJ 10 ML SYR IV SCH ×2 (05:20→18:10)
[2016-05-29 05:43] LABS: BASO % 0.6 % (0.0-1.0); EOS # 0.4 K/mm3 (0.0-0.50); LARGE UNSTAINED CELL # 0.2 K/mm3 (0.0-0.4); LARGE UNSTAINED CELL % 2.2 % (0.0-4.0); MEAN CORPUSCULAR HEMOGLOBIN 30.6 pg (27.0-33.0); MEAN CORPUSCULAR HGB CONC 32.4 g/dl (32.0-36.5); MEAN CORPUSCULAR VOLUME 94.6 fl (80.0-96.0); MONO # 0.6 K/mm3 (0.0-0.8); MONO % 7.5 % (0.0-5.0); NEUTROPHILS % 49.7 % (36.0-66.0); PLATELET COUNT, AUTOMATED 362 k/mm3 (150-450); RED CELL DISTRIBUTION WIDTH 14.2 % (11.5-14.5)
[2016-05-29 06:00] VITALS: BP 143/67
[2016-05-29 06:11] LABS: ALBUMIN 3.4 GM/DL (3.2-5.2); ALBUMIN/GLOBULIN RATIO 0.87 (1.00-1.93); ALKALINE PHOSPHATASE 77 U/L (45-117); ALT/SGPT 21 U/L (12-78); ANION GAP 8 MEQ/L (8-16); AST/SGOT 17 U/L (15-37); BILIRUBIN,TOTAL 0.2 MG/DL (0.2-1.0); BLOOD UREA NITROGEN 18 MG/DL (7-18); CALCIUM LEVEL 9.6 MG/DL (8.8-10.2); CARBON DIOXIDE LEVEL 27 MEQ/L (21-32); CHLORIDE LEVEL 104 MEQ/L (98-107); CREATININE FOR GFR 0.79 MG/DL (0.55-1.02); GLOMERULAR FILTRATION RATE > 60.0 (>39); GLUCOSE, FASTING 101 MG/DL (83-110); POTASSIUM SERUM 4.3 MEQ/L (3.5-5.1); SODIUM LEVEL 139 MEQ/L (136-145); TOTAL PROTEIN 7.3 GM/DL (6.4-8.2)
[2016-05-29] MEDS: ADVAIR DISKUS 250/50 INH PWD INH SCH ×2 (07:52→19:03)
[2016-05-29] MEDS: OMEPRAZOLE 20 MG CAP PO SCH (08:26)
[2016-05-29] MEDS: POTASSIUM CHLORIDE 10 MEQ SR TABLET PO SCH ×2 (08:27→21:25)
[2016-05-29] MEDS: ENOXAPARIN 40 MG/0.4 ML SYRINGE (J1650) SC SCH (08:27)
[2016-05-29] MEDS: amLODIPine 5 MG TAB PO SCH (08:29)
[2016-05-29] MEDS: NYSTATIN CREAM 15 GM TOP SCH ×2 (08:30→21:25)
--- NOTE | 2016-05-29 08:58 | IPNPDOC ---
Subjective General Date Seen The patient was seen on 05/29/16. Subjective Chief Complaint/HPI The patient is a 70-year-old female admitted with a reason for visit of Metabolic Encephalopathy. Events since last encounter Denies c/o. Constitutional: Denies: Chills, Fever, Night Sweats ENT: Denies: Dysphagia, Ear Pain, Head Aches Skin: Denies: Breakdown, Lesions, Rash Pulmonary: Denies: Cough, Dyspnea Cardiovascular: Denies: Chest Pain, Lt Headedness, Orthopnea, Palpitations, Paroxysmal Noc. Dyspnea Gastrointestinal: Denies: Abdominal Pain, Constipation, Diarrhea, Nausea, Vomiting Genitourinary: Denies: Dysuria, Frequency, Incontinence, Retention Neurological: Reports: Weakness, Denies: Incoordination Psych: Reports: Mood Normal, Denies: Depression, Memory Issues Objective Physical Examination General Exam: Positive: Alert, No Acute Distress Eye Exam: Positive: PERRLA, Negative: Sclera icteric ENT Exam: Positive: Mucous membr. moist/pink, Pharynx Normal Neck Exam: Positive: Supple, Negative: JVD, thyromegaly Chest Exam: Positive: Clear to auscultation, Diminished Heart Exam: Positive: Normal S1, Normal S2, Rate Normal, Regular Rhythm, Negative: Murmurs, Rubs Abdomen Exam: Positive: Hernia (midline incisional hernia, soft, non-tender), Normal bowel sounds, Other, Soft, Negative: Hepatospenomegaly, Tenderness Extremity Exam: Positive: Normal pulses, Negative: Clubbing, Cyanosis, Edema Skin Exam: Positive: Nl turgor and temperature, Negative: Breakdown Neuro Exam: Positive: Other ( Today she is asking appropriate questions and is witty and interactive. No focal deficit) Psych Exam: Positive: Oriented x 3, Other (vague reponses) Assessment /Plan Problems Problems: (1) Infection of CINNAMON GRINDER (ventriculoperitoneal) shunt Status: Acute Problem Text: 05/29/2016: Vancomycin until 05/30/2016 per ID. vancomycin D105/28 05/28 stable MS, afebrile, WBC-per ID can hold on repeat LP if not needing CINNAMON GRINDER shunt-per Kenyetta favor hold repeat CINNAMON GRINDER 05/20 repeat LP CSF CX S. epi 05/26 CT head stable 05/27/2016: WBC 6.7, Tm 99.7-given stable, but now repeat CSF from 05/20 +, will need to repeat-d/radha Lao 05/24/2016: See notes below for plan. No changes. 05/23 - Had LP on 05/[address] Kumari. His note advises to repeat spinal tap in several days or sooner if needed to drain up to 30 ml of CSF, as the the LP from 05/20 just [address] Lao from [place] is following and advises continuing the Vanco until 05/27. Will transfer her out of ICU to PCU. 05/21 - LP yesterday by Dr Kumari. 05/20/16 D5/10 IV vancomycin possibly able to treat c serial therapeutic LP +/- acetazolamide 05/20/16 Tm 99, WBC 7.5, LP took off 12 cc-patient tolerated c mild post-spinal frontal ENRIQUEZ 05/17/16 + S. epidermidis by shunt tap sens to vanco 05/10: The CINNAMON GRINDER shunt was externalized by neurosurgery tonight because of evidence of infection, then 05/17/[address] Kumari. 05/08 normal shunt study, neurosurgery suggests shunt likely colonized, and hopes to treat with abx; prefers LP and culture to directly culturing from shunt 05/06/16 MRI brain s/c mild hydro s change, no obvious infection (meningitis, shuntitis) (2) Incisional hernia Status: Acute Problem Text: Nausea resolved. waiting for re-read of CT scan. ? new onset. Asked for re-read of Ct scan completed 05/01 to see if this is a new finding. May be contributing factor to nausea. (3) Metabolic encephalopathy Status: Acute Response to Treatment: Stable Problem Text: 05/27/2016: unchanged. 05/24/2016: unchanged MS. Mildly vague at times yet A/o x 3 05/23 - Pt's mental status seem stable today. She knew she was in [facility]. She knew the year and the president. 05/22 - Pt's mental status seem stable today. She knew she was in [facility]. She knew the year and the president. Nursing is concerned that the patient has been less stable with ambulation and requiring the walker more. Will re-consult PT. 05/21 - Mental status stable. 05/20 - Mental status stable. 05/18 - mental status stable 05/17 - mental status improved - up in chair, alert a little vague but at baseline 2/ - Mental status has improved with externalization of shunt and tx of infection favor secondary to CINNAMON GRINDER shunt infection (4) Common bile duct (CBD) obstruction Status: Acute Problem Text: 05/26 - Dr Centeno is planning to remove cholecystectomy drainage tube in the upcoming week. Dr Tashia bernard. 05/24/2016: see plan below. 05/23 - Dr Centeno is planning to remove cholecystectomy drainage tube. This appears to be planned for next week. Dr Tashia bernard as well and her recent note states she would be discussing this with him. 05/22 - Dr Centeno is planning to remove cholecystectomy drainage tube this week. Dr Tashia bernard as well and her note states she would be discussing this with him. 05/20 - Dr Centeno is planning to remove cholecystectomy drainage tube this week. 05/17 Dr. Centeno to remove cholecystostomy tube next week 05/15 - plan to remove the cholecystomy tube at some point - dr. Urbina discussing this with Dr. Centeno and Dr. Cornejo 05/10/16 plan d/w Dr. Centeno-favors repeat cholangiogram +/- catheter removal in 4W 05/07/16 percutaneous transhepatic cholangiogram, distal CBD stricture biopsy ( benign by pathology), CBD stone removal and internal-external biliary drainage catheter placement by Dr. Centeno 05/06/16 ERCP unable to perform cholangiogram-Chantal to ask IR for CBD stent placement . (5) COPD (chronic obstructive pulmonary disease) Status: Chronic Response to Treatment: Stable Problem Text: Respiratory status stable. (6) Hypertension Status: Chronic Problem Text: 05/20 - Amlodipine was decreased to 5 mg daily. (7) Cerebral aneurysm Permanent Comment: s/p ICA/basilar coiling, s/p CINNAMON GRINDER shunt 2014 Last Edited By: Yoseph Medina MD on May 10, 2016 13:40 Status: Chronic Response to Treatment: Stable Problem Text: S/P ICA/Basilar coiling and CINNAMON GRINDER shunt 2014. (8) S/P splenectomy Status: Chronic Response to Treatment: Stable Problem Text: obviously higher sepsis risk Plan/VTE VTE Prophylaxis Ordered?: Yes (Lovenox) Plan Therapy: PT, OT Family Medicine Attending Note: Patient seen and examined this morning at approximately 6 am; I discussed her care with Alvina Fan NP and I agree with her note as documented. Patient denies any pain/discomfort this morning. She is on day [address] Kumari is following and at this point, per his note, is not going to replace CINNAMON GRINDER shunt unless she has worsening of mental status. I discussed with Dr. Centeno - he plans to take abdominal drain out tomorrow morning - I will make her NPO after midnight for this. (KES) VS, I&O, 24H, Fishbone Vital Signs/I&O Vital Signs Date Time Temp Pulse Resp B/P Pulse Ox O2 Delivery O2 Flow Rate FiO2 05/29/16 08:29 72 119/58 05/29/16 06:00 96.2 18 96 Room Air I&O- Last 24 Hours up to 6 AM 05/29/16 06:00 Intake Total 1620 ml Output Total 1200 ml Balance 420 ml Laboratory Data 24H LABS Laboratory Tests 2 05/29/16 05:22: Blood Urea Nitrogen 18, Creatinine 0.79, Sodium Level 139, Potassium Level 4.3, Chloride Level 104, Carbon Dioxide Level 27, Calcium Level 9.6, Aspartate Amino Transf (AST/SGOT) 17, Alanine Aminotransferase (ALT/SGPT) 21, Alkaline Phosphatase 77, Total Bilirubin 0.2, Total Protein 7.3, Albumin 3.4, Albumin/ Globulin Ratio 0.87L, Anion Gap 8, White Blood Count 8.0, Red Blood Count 3.85L , Hemoglobin 11.8L, Hematocrit 36.4, Mean Corpuscular Volume 94.6, Mean Corpuscular Hemoglobin 30.6, Mean Corpuscular Hemoglobin Concent 32.4, Red Cell Distribution Width 14.2, Platelet Count 362, Neutrophils (%) (Auto) 49.7, Lymphocytes (%) (Auto) 35.0, Monocytes (%) (Auto) 7.5H, Eosinophils (%) (Auto) 5.0H, Basophils (%) (Auto) 0.6, Neutrophils # (Auto) 4.0, Lymphocytes # (Auto) 3.0, Monocytes # (Auto) 0.6, Eosinophils # (Auto) 0.4, Basophils # (Auto) 0.0, Glomerular Filtration Rate > 60.0, Large Unclassified Cells # 0.2, Large Unclassified Cells % 2.2 CBC/BMP Laboratory Tests 05/29/16 05:22 Calcium Level 9.6, Aspartate Amino Transf (AST/SGOT) 17, Alanine Aminotransferase (ALT/SGPT) 21, Alkaline Phosphatase 77, Total Bilirubin 0.2, Total Protein 7.3, Albumin 3.4, Red Blood Count 3.85 L, Mean Corpuscular Volume 94.6, Mean Corpuscular Hemoglobin 30.6, Mean Corpuscular Hemoglobin Concent 32.4 , Red Cell Distribution Width 14.2, Neutrophils (%) (Auto) 49.7, Lymphocytes (% ) (Auto) 35.0, Monocytes (%) (Auto) 7.5 H, Eosinophils (%) (Auto) 5.0 H, Basophils (%) (Auto) 0.6, Neutrophils # (Auto) 4.0, Lymphocytes # (Auto) 3.0, Monocytes # (Auto) 0.6, Eosinophils # (Auto) 0.4, Basophils # (Auto) 0.0 Microbiology Microbiology 05/20/16 Gram Stain - Final, Complete 05/20/16 CSF Culture - Final, Complete Staphylococcus Epidermidis Alvina Fan May 29, 2016 08:58 AMELIA RYAN MD May 29, 2016 10:38
[2016-05-29] MEDS: VANCOMYCIN HCL 1,000 MG, VIAL MATE ADAPTER 1 EACH in D5W 250 ML IV SCH (11:57)
[2016-05-29 14:00] VITALS: BP 128/60
[2016-05-29] MEDS: NICOTINE 7 MG/24 HR TRANSDERMAL TD SCH (21:25)
[2016-05-29] MEDS: SERTRALINE HCL 50 MG TAB PO SCH (21:25)
[2016-05-29 22:00] VITALS: BP 110/53
[2016-05-29] MEDS ORDERED: D5W/0.45% SODIUM CHLORIDE 1,000 ML IV SCH (23:30)
[2016-05-30] MEDS: VANCOMYCIN HCL 1,000 MG, VIAL MATE ADAPTER 1 EACH in D5W 250 ML IV SCH (05:45)
[2016-05-30] MEDS: SODIUM CHLORIDE 0.9% INJ 10 ML SYR IV SCH ×2 (05:45→17:41)
[2016-05-30 06:00] VITALS: BP 129/81
[2016-05-30 06:59] LABS: BASO # 0.1 K/mm3 (0.0-0.2); BASO % 0.9 % (0.0-1.0); EOS # 0.3 K/mm3 (0.0-0.50); LARGE UNSTAINED CELL # 0.3 K/mm3 (0.0-0.4); LARGE UNSTAINED CELL % 3.5 % (0.0-4.0); LYMPH # 2.6 K/mm3 (1.5-4.5); LYMPH % 35.1 % (24.0-44.0); MEAN CORPUSCULAR HEMOGLOBIN 30.9 pg (27.0-33.0); MEAN CORPUSCULAR HGB CONC 33.3 g/dl (32.0-36.5); MEAN CORPUSCULAR VOLUME 92.9 fl (80.0-96.0); MONO # 0.6 K/mm3 (0.0-0.8); MONO % 7.6 % (0.0-5.0); NEUTROPHILS # 3.6 K/mm3 (1.8-7.7); NEUTROPHILS % 48.9 % (36.0-66.0); PLATELET COUNT, AUTOMATED 350 k/mm3 (150-450); RED CELL DISTRIBUTION WIDTH 13.9 % (11.5-14.5); WHITE BLOOD COUNT 7.4 K/mm3 (4.0-10.0)
[2016-05-30 07:19] LABS: ALBUMIN/GLOBULIN RATIO 0.88 (1.00-1.93); ALKALINE PHOSPHATASE 67 U/L (45-117); ALT/SGPT 19 U/L (12-78); ANION GAP 8 MEQ/L (8-16); AST/SGOT 13 U/L (15-37); BILIRUBIN,TOTAL 0.2 MG/DL (0.2-1.0); BLOOD UREA NITROGEN 14 MG/DL (7-18); CALCIUM LEVEL 9.3 MG/DL (8.8-10.2); CARBON DIOXIDE LEVEL 26 MEQ/L (21-32); CHLORIDE LEVEL 107 MEQ/L (98-107); CREATININE FOR GFR 0.76 MG/DL (0.55-1.02); GLOMERULAR FILTRATION RATE > 60.0 (>39); GLUCOSE, FASTING 161 MG/DL (83-110); POTASSIUM SERUM 3.9 MEQ/L (3.5-5.1); SODIUM LEVEL 141 MEQ/L (136-145); TOTAL PROTEIN 6.4 GM/DL (6.4-8.2)
[2016-05-30] MEDS: ADVAIR DISKUS 250/50 INH PWD INH SCH ×2 (07:32→19:31)
[2016-05-30] MEDS ORDERED: SODIUM BICARBONATE 8.4% INJ 50MEQ 50 ML VIAL As Ordered ONE (08:12)
[2016-05-30] MEDS ORDERED: ISOVUE-300 61% 50ML VIAL (Q9967) As Ordered ONE (08:13)
[2016-05-30] MEDS ORDERED: LIDOCAINE 2% MDV 20 ML VIAL As Ordered ONE (08:46)
[2016-05-30] MEDS ORDERED: ONDANSETRON 4MG/2ML VIAL (J2405) As Ordered ONE (09:14)
[2016-05-30 09:48] VITALS: BP 146/66
[2016-05-30 10:05] VITALS: BP 138/64
--- NOTE | 2016-05-30 10:25 | IPNPDOC ---
Subjective Date Seen The patient was seen on 05/30/16. Subjective Chief Complaint/HPI The patient is a 70-year-old female admitted with a reason for visit of Metabolic Encephalopathy. Events since last encounter Cholecystostomy tube removed this am. tolerating well. had episode of confusion last night. A/o today. Denies c/o. Constitutional: Denies: Chills, Fever, Night Sweats Pulmonary: Denies: Cough, Dyspnea Cardiovascular: Denies: Chest Pain, Lt Headedness, Orthopnea, Palpitations, Paroxysmal Noc. Dyspnea Gastrointestinal: Denies: Abdominal Pain, Constipation, Diarrhea, Nausea, Vomiting Objective Physical Examination General Exam: Positive: Alert, No Acute Distress Eye Exam: Positive: PERRLA, Negative: Sclera icteric ENT Exam: Positive: Mucous membr. moist/pink, Pharynx Normal Neck Exam: Positive: Supple, Negative: JVD, thyromegaly Chest Exam: Positive: Clear to auscultation, Diminished Heart Exam: Positive: Normal S1, Normal S2, Rate Normal, Regular Rhythm, Negative: Murmurs, Rubs Abdomen Exam: Positive: Hernia (midline incisional hernia, soft, non-tender), Normal bowel sounds, Other, Soft, Negative: Hepatospenomegaly, Tenderness Extremity Exam: Positive: Normal pulses, Negative: Clubbing, Cyanosis, Edema Skin Exam: Positive: Nl turgor and temperature, Negative: Breakdown Neuro Exam: Positive: Other ( Today she is asking appropriate questions and is witty and interactive. No focal deficit) Psych Exam: Positive: Oriented x 3, Other (vague reponses) Assessment /Plan Problems (1) Common bile duct (CBD) obstruction Status: Acute Problem Text: 05/30/16- Dr Centeno removed cholecystectomy tube 05/07/16 percutaneous transhepatic cholangiogram, distal CBD stricture biopsy ( benign by pathology), CBD stone removal and internal-external biliary drainage catheter placement by Dr. Centeno 05/06/16 ERCP unable to perform cholangiogram-Reindl to ask IR for CBD stent placement . (2) Infection of KNIFE SETTER (ventriculoperitoneal) shunt Status: Acute Problem Text: savana D107/2605/30/2016: period of transient confusion, s headache, WBC stable at 7.4, Tm 98.8 05/28 stable MS, afebrile, WBC-per ID can hold on repeat LP if not needing KNIFE SETTER shunt-per Kenyetta favor hold repeat KNIFE SETTER 05/20 repeat LP CSF CX S. epi-although took 6D to grow out! 05/26 CT head stable 05/27/2016: WBC 6.7, Tm 99.7-given stable, but now repeat CSF from 05/20 +, will need to repeat-d/w Tashia 05/24/2016: See notes below for plan. No changes. 05/23 - Had LP on 05/[address] Kumari. His note advises to repeat spinal tap in several days or sooner if needed to drain up to 30 ml of CSF, as the the LP from 05/[address] just [address] Lao from [place] is following and advises continuing the Vanco until 05/27. Will transfer her out of ICU to PCU. possibly able to treat c serial therapeutic LP +/- acetazolamide 05/20/16 Tm 99, WBC 7.5, LP took off 12 cc-patient tolerated c mild post-spinal frontal ENRIQUEZ 05/17/16 + S. epidermidis by shunt tap sens to vanco 05/10: The KNIFE SETTER shunt was externalized by neurosurgery tonight because of evidence of infection, then 05/17/[address] Kumari. 05/08 normal shunt study, neurosurgery suggests shunt likely colonized, and hopes to treat with abx; prefers LP and culture to directly culturing from shunt 05/06/16 MRI brain s/c mild hydro s change, no obvious infection (meningitis, shuntitis) (3) Incisional hernia Status: Acute Problem Text: Nausea resolved. waiting for re-read of CT scan. ? new onset. Asked for re-read of Ct scan completed 05/01 to see if this is a new finding. May be contributing factor to nausea. (4) Metabolic encephalopathy Status: Acute Response to Treatment: Stable Problem Text: 05/29/2016: had some confusion last night. Nursing to report to Neurosurgery for repeat evaluation. 05/27/2016: unchanged. 05/24/2016: unchanged MS. Mildly vague at times yet A/o x 3 05/23 - Pt's mental status seem stable today. She knew she was in [facility]. She knew the year and the president. 05/22 - Pt's mental status seem stable today. She knew she was in [facility]. She knew the year and the president. Nursing is concerned that the patient has been less stable with ambulation and requiring the walker more. Will re-consult PT. 2/7 - Mental status stable. 2/6 - Mental status stable. 2/4 - mental status stable 2/3 - mental status improved - up in chair, alert a little vague but at baseline 2/2 - Mental status has improved with externalization of shunt and tx of infection favor secondary to KNIFE SETTER shunt infection (5) COPD (chronic obstructive pulmonary disease) Status: Chronic Response to Treatment: Stable Problem Text: Respiratory status stable. (6) Hypertension Status: Chronic Problem Text: 05/20 - Amlodipine was decreased to 5 mg daily. (7) Cerebral aneurysm Permanent Comment: s/p ICA/basilar coiling, s/p KNIFE SETTER shunt 2014 Last Edited By: Yoseph Medina MD on May 10, 2016 13:40 Status: Chronic Response to Treatment: Stable Problem Text: S/P ICA/Basilar coiling and KNIFE SETTER shunt 2014. (8) S/P splenectomy Status: Chronic Response to Treatment: Stable Problem Text: obviously higher sepsis risk Plan/VTE VTE Prophylaxis Ordered?: Yes (Lovenox) Plan Therapy: PT, OT VS, I&O, 24H, Fishbone Vital Signs/I&O Vital Signs Date Time Temp Pulse Resp B/P Pulse Ox O2 Delivery O2 Flow Rate FiO2 05/30/16 10:05 98.6 78 20 138/64 95 Room Air I&O- Last 24 Hours up to 6 AM 05/30/16 05:59 Intake Total 1265 ml Output Total 1650 ml Balance -385 ml Laboratory Data 24H LABS Laboratory Tests 2 05/30/16 06:47: Blood Urea Nitrogen 14, Creatinine 0.76, Sodium Level 141, Potassium Level 3.9, Chloride Level 107, Carbon Dioxide Level 26, Calcium Level 9.3, Aspartate Amino Transf (AST/SGOT) 13L, Alanine Aminotransferase (ALT/SGPT) 19, Alkaline Phosphatase 67, Total Bilirubin 0.2, Total Protein 6.4, Albumin 3.0L, Albumin/ Globulin Ratio 0.88L, Anion Gap 8, White Blood Count 7.4, Red Blood Count 3.68L , Hemoglobin 11.4L, Hematocrit 34.2L, Mean Corpuscular Volume 92.9, Mean Corpuscular Hemoglobin 30.9, Mean Corpuscular Hemoglobin Concent 33.3, Red Cell Distribution Width 13.9, Platelet Count 350, Neutrophils (%) (Auto) 48.9, Lymphocytes (%) (Auto) 35.1, Monocytes (%) (Auto) 7.6H, Eosinophils (%) (Auto) 4.0H, Basophils (%) (Auto) 0.9, Neutrophils # (Auto) 3.6, Lymphocytes # (Auto) 2.6, Monocytes # (Auto) 0.6, Eosinophils # (Auto) 0.3, Basophils # (Auto) 0.1, Glomerular Filtration Rate > 60.0, Large Unclassified Cells # 0.3, Large Unclassified Cells % 3.5 CBC/BMP Laboratory Tests 05/30/16 06:47 Calcium Level 9.3, Aspartate Amino Transf (AST/SGOT) 13 L, Alanine Aminotransferase (ALT/SGPT) 19, Alkaline Phosphatase 67, Total Bilirubin 0.2, Total Protein 6.4, Albumin 3.0 L, Red Blood Count 3.68 L, Mean Corpuscular Volume 92.9, Mean Corpuscular Hemoglobin 30.9, Mean Corpuscular Hemoglobin Concent 33.3, Red Cell Distribution Width 13.9, Neutrophils (%) (Auto) 48.9, Lymphocytes (%) (Auto) 35.1, Monocytes (%) (Auto) 7.6 H, Eosinophils (%) (Auto) 4.0 H, Basophils (%) (Auto) 0.9, Neutrophils # (Auto) 3.6, Lymphocytes # (Auto) 2.6, Monocytes # (Auto) 0.6, Eosinophils # (Auto) 0.3, Basophils # (Auto) 0.1 Microbiology Microbiology 05/20/16 Gram Stain - Final, Complete 05/20/16 CSF Culture - Final, Complete Staphylococcus Epidermidis Alvina Fan May 30, 2016 10:25 Yoseph Medina M.D. May 30, 2016 12:40 Calcium Level 9.3, Aspartate Amino Transf (AST/SGOT) 13 L, Alanine Aminotransferase (ALT/SGPT) 19, Alkaline Phosphatase 67, Total Bilirubin 0.2, Total Protein 6.4, Albumin 3.0 L, Red Blood Count 3.68 L, Mean Corpuscular Volume 92.9, Mean Corpuscular Hemoglobin 30.9, Mean Corpuscular Hemoglobin Concent 33.3, Red Cell Distribution Width 13.9, Neutrophils (%) (Auto) 48.9, Lymphocytes (%) (Auto) 35.1, Monocytes (%) (Auto) 7.6 H, Eosinophils (%) (Auto) 4.0 H, Basophils (%) (Auto) 0.9, Neutrophils # (Auto) 3.6, Lymphocytes # (Auto) 2.6, Monocytes # (Auto) 0.6, Eosinophils # (Auto) 0.3, Basophils # (Auto) 0.1 Microbiology Microbiology 05/20/16 Gram Stain - Final, Complete 05/20/16 CSF Culture - Final, Complete Staphylococcus Epidermidis Alvina Fan [facility] May 30, 2016 10:25 Yoseph Medina M.D. May 30, 2016 12:40 05/20/16 CSF Culture - Final, Complete Staphylococcus Epidermidis Alvina Fan [facility] May 30, 2016 10:25
[2016-05-30] MEDS: ENOXAPARIN 40 MG/0.4 ML SYRINGE (J1650) SC SCH (10:45)
[2016-05-30] MEDS: POTASSIUM CHLORIDE 10 MEQ SR TABLET PO SCH ×2 (10:46→20:36)
[2016-05-30] MEDS: ACETAMINOPHEN TAB 650MG DOSE (2X325MG) PO PRN (10:47)
[2016-05-30] MEDS: OMEPRAZOLE 20 MG CAP PO SCH (10:47)
[2016-05-30] MEDS: amLODIPine 5 MG TAB PO SCH (10:48)
[2016-05-30] MEDS: NYSTATIN CREAM 15 GM TOP SCH ×2 (10:50→20:37)
[2016-05-30] MEDS: traMADol 50 MG TAB PO PRN ×2 (11:21→20:41)
[2016-05-30 16:00] VITALS: BP 119/62
--- NOTE | 2016-05-30 17:43 | REPKIM ---
CLINICAL HISTORY: Patient with a history of metabolic encephalopathy, [employer] shunt removal due to infection, significant medical comorbidities, cholecystostomy tube placement in [place] in the past was found to have distal common bile duct stricture and common bile duct stone/debri/mass. On last encounter in April of 2016, PTC, CBD stricture biopsy, CBD stone removal and internal- external biliary catheter (stent) performed. Bx showed no malignancy. Patient presents for a follow up over the wire cholangiogram possible biliary/ cholecystostomy catheter removal/intervention. PROCEDURE: 1. Cholangiogram/Over the wire cholangiogram 2. Internal-External Biliary Drainage Catheter (stent) Removal 3. Cholecystostomy Drainage Catheter Removal INTERVENTIONALIST: Иван Centeno MD MEDICATIONS: Local Lidocaine 2% EBL: 1 mL CONTRAST: 24 mL Isovue 300 FLUORO TIME: 3.6 minutes PROCEDURE: After the risks and benefits of the procedure were explained to the patient and all questions were answered, informed written consent was obtained. A timeout procedure was performed prior to the start of the procedure to confirm patient identity. The right upper abdomen/existing indwelling catheters were prepped and draped in the usual sterile fashion. Contrast was injected through the existing right internal-external biliary drainage catheter which showed the biliary catheter is in a satisfactory course and position. Lidocaine was administered into the subcutaneous and deep tissues for local anesthesia. Using this access, a guidewire was advanced through the catheter into the small bowel. The existing internal-external biliary catheter was unlocked and removed over the guidewire. Then a 6-Bengali vascular sheath was advanced over the guidewire, and its tip positioned in the common hepatic duct. Contrast was injected and an over the wire cholangiogram was performed. This showed there is free antegrade flow of contrast into the small bowel. There is no evidence of extravasation of contrast. This also showed the cystic duct is patent. No filling defects seen in the gallbladder. The sheath and wire were then removed. The existing cholecystostomy tube was also removed in its entirety over a guidewire. A sterile dressing was applied. The patient tolerated the procedure well with no immediate complications. This procedure was performed using fluoroscopy guidance. Dr. Centeno was present for the entire procedure as documented in the progress notes. IMPRESSION: Over the wire cholangiogram demonstrates free antegrade flow of contrast into the small bowel. The cystic duct remains patent with no evidence of filling defect within the gallbladder. The intrahepatic biliary system remains decompressed. Successful removal of the existing internal-external biliary catheter (stent) and cholecystostomy tube as discussed above. cc: MD Yoseph Hawkins MD Leo J Gosselin Jr, MD Marylene J Duah, MD MTDD
[2016-05-30] MEDS: SERTRALINE HCL 50 MG TAB PO SCH (20:36)
[2016-05-30] MEDS: NICOTINE 7 MG/24 HR TRANSDERMAL TD SCH (20:37)
[2016-05-30 22:00] VITALS: BP 123/58
[2016-05-31] MEDS: traMADol 50 MG TAB PO PRN (03:24)
[2016-05-31] MEDS: SODIUM CHLORIDE 0.9% INJ 10 ML SYR IV SCH ×2 (05:31→18:11)
[2016-05-31 05:43] LABS: BASO % 0.2 % (0.0-1.0); EOS # 0.1 K/mm3 (0.0-0.50); EOS % 0.8 % (0.0-3.0); LARGE UNSTAINED CELL # 0.2 K/mm3 (0.0-0.4); LARGE UNSTAINED CELL % 1.1 % (0.0-4.0); LYMPH # 1.4 K/mm3 (1.5-4.5); MEAN CORPUSCULAR HEMOGLOBIN 30.5 pg (27.0-33.0); MEAN CORPUSCULAR VOLUME 92.5 fl (80.0-96.0); MONO # 0.6 K/mm3 (0.0-0.8); MONO % 3.6 % (0.0-5.0); NEUTROPHILS # 14.8 K/mm3 (1.8-7.7); NEUTROPHILS % 86.2 % (36.0-66.0); PLATELET COUNT, AUTOMATED 348 k/mm3 (150-450); RED CELL DISTRIBUTION WIDTH 13.9 % (11.5-14.5); WHITE BLOOD COUNT 17.2 K/mm3 (4.0-10.0)
[2016-05-31 06:00] VITALS: BP 130/62
[2016-05-31 06:06] LABS: ALBUMIN 3.2 GM/DL (3.2-5.2); ALBUMIN/GLOBULIN RATIO 0.97 (1.00-1.93); ALKALINE PHOSPHATASE 80 U/L (45-117); ALT/SGPT 22 U/L (12-78); AMYLASE 42 U/L (25-115); ANION GAP 9 MEQ/L (8-16); AST/SGOT 13 U/L (15-37); BILIRUBIN,TOTAL 0.6 MG/DL (0.2-1.0); BLOOD UREA NITROGEN 17 MG/DL (7-18); CALCIUM LEVEL 9.7 MG/DL (8.8-10.2); CARBON DIOXIDE LEVEL 26 MEQ/L (21-32); CHLORIDE LEVEL 105 MEQ/L (98-107); CREATININE FOR GFR 0.77 MG/DL (0.55-1.02); GLOMERULAR FILTRATION RATE > 60.0 (>39); GLUCOSE, FASTING 123 MG/DL (83-110); POTASSIUM SERUM 4.3 MEQ/L (3.5-5.1); SODIUM LEVEL 140 MEQ/L (136-145); TOTAL PROTEIN 6.5 GM/DL (6.4-8.2)
[2016-05-31 06:08] LABS: ERYTHROCYTE SEDIMENTATION RATE 52 mm/hr (0-30)
[2016-05-31] MEDS: ADVAIR DISKUS 250/50 INH PWD INH SCH ×2 (07:29→21:13)
--- NOTE | 2016-05-31 08:58 | IPNPDOC ---
Subjective Date Seen The patient was seen on 05/31/16. Subjective Chief Complaint/HPI The patient is a 70-year-old female admitted with a reason for visit of Metabolic Encephalopathy. Events since last encounter C/o RUQ pain and nausea this am. WBC elevated CRP and ESR elevated. Feels generally poor. Constitutional: Reports: Malaise, Denies: Chills, Fever, Night Sweats ENT: Denies: Dysphagia, Ear Pain, Head Aches Pulmonary: Denies: Cough, Dyspnea Cardiovascular: Denies: Chest Pain, Lt Headedness, Orthopnea, Palpitations, Paroxysmal Noc. Dyspnea Gastrointestinal: Reports: Abdominal Pain, Nausea, Denies: Constipation, Diarrhea Genitourinary: Denies: Dysuria, Frequency Psych: Reports: Mood Normal, Denies: Depression, Memory Issues Objective Physical Examination General Exam: Positive: Alert, No Acute Distress Eye Exam: Positive: PERRLA, Negative: Sclera icteric ENT Exam: Positive: Mucous membr. moist/pink, Pharynx Normal Neck Exam: Positive: Supple, Negative: JVD, thyromegaly Chest Exam: Positive: Clear to auscultation, Diminished Heart Exam: Positive: Normal S1, Normal S2, Rate Normal, Regular Rhythm, Negative: Murmurs, Rubs Abdomen Exam: Positive: Hernia (midline incisional hernia, soft, non-tender), Normal bowel sounds, Other, Soft, Negative: Hepatospenomegaly, Tenderness Extremity Exam: Positive: Normal pulses, Negative: Clubbing, Cyanosis, Edema Skin Exam: Positive: Nl turgor and temperature, Negative: Breakdown Neuro Exam: Positive: Other ( Today she is asking appropriate questions and is witty and interactive. No focal deficit) Psych Exam: Positive: Oriented x 3, Other (vague reponses) Assessment /Plan Problems (1) Common bile duct (CBD) obstruction Status: Acute Problem Text: D1 meropenem/D15 vanco 05/31/16 BCX x 2 P 05/31/16 ABD WCX P 05/31/2016: RUQ pain c WBC to 17.2-STAT RUQ US s obvious ductal dilatation; therefore, favor transient bacteremia-meropenem started 05/30/16- Dr Centeno removed cholecystectomy tube 05/07/16 percutaneous transhepatic cholangiogram, distal CBD stricture biopsy ( benign by pathology), CBD stone removal and internal-external biliary drainage catheter placement by Dr. Centeno 05/06/16 ERCP unable to perform cholangiogram-Reindl to ask IR for CBD stent placement . (2) Infection of TIE SAWYER (ventriculoperitoneal) shunt Status: Acute Problem Text: vanco D15 05/28 stable MS, afebrile, WBC-per ID can hold on repeat LP if not needing TIE SAWYER shunt-per Kenyetta favor hold repeat TIE SAWYER 05/20 repeat LP CSF CX S. epi-although took 6D to grow out! 05/26 CT head stable 05/27/2016: WBC 6.7, Tm 99.7-given stable, but now repeat CSF from 05/20 +, will need to repeat-d/w Tashia 05/24/2016: See notes below for plan. No changes. 05/23 - Had LP on 05/[address] Kumari. His note advises to repeat spinal tap in several days or sooner if needed to drain up to 30 ml of CSF, as the the LP from 05/[address] just [address] Lao from [place] is following and advises continuing the Vanco until 05/27. Will transfer her out of ICU to PCU. possibly able to treat c serial therapeutic LP +/- acetazolamide 05/20/16 Tm 99, WBC 7.5, LP took off 12 cc-patient tolerated c mild post-spinal frontal ENRIQUEZ 05/17/16 + S. epidermidis by shunt tap sens to vanco 05/10: The TIE SAWYER shunt was externalized by neurosurgery tonight because of evidence of infection, then 05/17/[address] Kumari. 05/08 normal shunt study, neurosurgery suggests shunt likely colonized, and hopes to treat with abx; prefers LP and culture to directly culturing from shunt 05/06/16 MRI brain s/c mild hydro s change, no obvious infection (meningitis, shuntitis) (3) Incisional hernia Status: Acute Problem Text: Nausea resolved. waiting for re-read of CT scan. ? new onset. Asked for re-read of Ct scan completed 05/01 to see if this is a new finding. May be contributing factor to nausea. (4) Metabolic encephalopathy Status: Acute Response to Treatment: Stable Problem Text: 05/31/2016: feeling generally poor with elevated WBC. Re-eval abdominal U S d/t c/o pain. Consider repeat LP if US negative. 05/29/2016: had some confusion last night. Nursing to report to Neurosurgery for repeat evaluation. 05/27/2016: unchanged. 05/24/2016: unchanged MS. Mildly vague at times yet A/o x 3 05/23 - Pt's mental status seem stable today. She knew she was in [facility]. She knew the year and the president. 05/22 - Pt's mental status seem stable today. She knew she was in [facility]. She knew the year and the president. Nursing is concerned that the patient has been less stable with ambulation and requiring the walker more. Will re-consult PT. 05/21 - Mental status stable. 05/20 - Mental status stable. 05/18 - mental status stable 05/17 - mental status improved - up in chair, alert a little vague but at baseline 05/16 - Mental status has improved with externalization of shunt and tx of infection favor secondary to TIE SAWYER shunt infection (5) COPD (chronic obstructive pulmonary disease) Status: Chronic Response to Treatment: Stable Problem Text: Respiratory status stable. (6) Hypertension Status: Chronic Problem Text: 05/20 - Amlodipine was decreased to 5 mg daily. (7) Cerebral aneurysm Permanent Comment: s/p ICA/basilar coiling, s/p TIE SAWYER shunt 2014 Last Edited By: Yoseph Medina MD on May 10, 2016 13:40 Status: Chronic Response to Treatment: Stable Problem Text: S/P ICA/Basilar coiling and TIE SAWYER shunt 2014. (8) S/P splenectomy Status: Chronic Response to Treatment: Stable Problem Text: obviously higher sepsis risk Plan/VTE VTE Prophylaxis Ordered?: Yes (Lovenox) Plan Therapy: PT, OT VS, I&O, 24H, Fishbone Vital Signs/I&O Vital Signs Date Time Temp Pulse Resp B/P Pulse Ox O2 Delivery O2 Flow Rate FiO2 05/31/16 06:00 97.1 76 18 130/62 93 05/30/16 16:00 Room Air I&O- Last 24 Hours up to 6 AM 05/31/16 05:59 Intake Total 1545 ml Output Total 1050 ml Balance 495 ml Laboratory Data 24H LABS Laboratory Tests 2 05/31/16 05:31: Blood Urea Nitrogen 17, Creatinine 0.77, Sodium Level 140, Potassium Level 4.3, Chloride Level 105, Carbon Dioxide Level 26, Calcium Level 9.7, Aspartate Amino Transf (AST/SGOT) 13L, Alanine Aminotransferase (ALT/SGPT) 22, Alkaline Phosphatase 80, Total Bilirubin 0.6#, Total Protein 6.5, Albumin 3.2, Albumin/ Globulin Ratio 0.97L, Amylase Level 42, Anion Gap 9, White Blood Count 17.2H, Red Blood Count 3.96L, Hemoglobin 12.1, Hematocrit 36.6, Mean Corpuscular Volume 92.5, Mean Corpuscular Hemoglobin 30.5, Mean Corpuscular Hemoglobin Concent 33.0, Red Cell Distribution Width 13.9, Platelet Count 348, Neutrophils (%) (Auto) 86.2H, Lymphocytes (%) (Auto) 8.0L, Monocytes (%) (Auto) 3.6, Eosinophils (%) (Auto) 0.8, Basophils (%) (Auto) 0.2, Neutrophils # (Auto) 14.8H , Lymphocytes # (Auto) 1.4L, Monocytes # (Auto) 0.6, Eosinophils # (Auto) 0.1, Basophils # (Auto) 0.0, C-Reactive Protein, Quantitative 14.60H, Erythrocyte Sedimentation Rate 52H, Glomerular Filtration Rate > 60.0, Large Unclassified Cells # 0.2, Large Unclassified Cells % 1.1, Lipase 101 CBC/BMP Laboratory Tests 05/31/16 05:31 Calcium Level 9.7, Aspartate Amino Transf (AST/SGOT) 13 L, Alanine Aminotransferase (ALT/SGPT) 22, Alkaline Phosphatase 80, Total Bilirubin 0.6 #, Total Protein 6.5, Albumin 3.2, Red Blood Count 3.96 L, Mean Corpuscular Volume 92.5, Mean Corpuscular Hemoglobin 30.5, Mean Corpuscular Hemoglobin Concent 33.0 , Red Cell Distribution Width 13.9, Neutrophils (%) (Auto) 86.2 H, Lymphocytes ( %) (Auto) 8.0 L, Monocytes (%) (Auto) 3.6, Eosinophils (%) (Auto) 0.8, Basophils (%) (Auto) 0.2, Neutrophils # (Auto) 14.8 H, Lymphocytes # (Auto) 1.4 L, Monocytes # (Auto) 0.6, Eosinophils # (Auto) 0.1, Basophils # (Auto) 0.0 Alvina Fan [employer] May 31, 2016 08:58 Yoseph Medina M.D. May 31, 2016 13:26
[2016-05-31] MEDS: ENOXAPARIN 40 MG/0.4 ML SYRINGE (J1650) SC SCH (09:38)
[2016-05-31] MEDS: POTASSIUM CHLORIDE 10 MEQ SR TABLET PO SCH ×2 (09:38→21:44)
[2016-05-31] MEDS: OMEPRAZOLE 20 MG CAP PO SCH (09:38)
[2016-05-31] MEDS: amLODIPine 5 MG TAB PO SCH (09:38)
[2016-05-31] MEDS: NYSTATIN CREAM 15 GM TOP SCH ×2 (09:39→21:44)
--- NOTE | 2016-05-31 12:32 | REP ---
Clinical: Right upper quadrant pain and leukocytosis history of prior cholecystostomy tube. Technique: Real time garcia scale ultrasound examination using curved array transducer. Findings: The liver is heterogeneous and a small 1 cm complex cyst is noted in the right lobe. Too small fluid collections are identified anterior to the right lobe and along the right hepatic capsule measuring 2.5 x 0.5 x 2.9 cm and 3.3 x 1.2 x 2.9 cm respectively. There is no evidence for biliary ductal dilatation and the common bile duct measures 5.5 mm diameter. The presumed gallbladder is distended measuring greater than 7.5 cm in length and 4.5 cm diameter. The patient is status post splenectomy. The pancreas is incompletely evaluated. The right kidney measures 10.2 x 5.7 x 4.3 cm without hydronephrosis. Left kidney measures 10.4 x 5.0 x 5.6 cm without hydronephrosis and demonstrates upper pole cysts measuring up to 3 cm diameter. Impression: 1. Two small catina hepatic fluid collections possibly related to cholecystostomy tube removal. 2. Moderate distension to the presumed gallbladder. 3. Bilateral kidneys without hydronephrosis. Signed by Cordell Ramos MD 05/31/2016 12:24 P
[2016-05-31] MEDS: MEROPENEM INJ 1 GM in D5W MINI-BAG PLUS 100 ML IV SCH ×2 (13:34→22:12)
[2016-05-31] MEDS: VANCOMYCIN HCL 1,000 MG, VIAL MATE ADAPTER 1 EACH in D5W 250 ML IV SCH (13:34)
[2016-05-31 14:00] VITALS: BP 146/60
--- NOTE | 2016-05-31 20:56 | IPN ---
DATE: 05/31/2016 Eloina had the stents removed yesterday by Dr. Centeno from the common bile duct. Today she has increased abdominal pain right upper quadrant. She had some chills with low grade fever, she is stating she is cold. She denies any headache. No cough, shortness of breath. She had some nausea and earlier vomited as well. LABORATORY DATA: White count is 17.2, hemoglobin 12.1, hematocrit 36.6, platelets 348. ESR is 52. Sodium 140, potassium 4.3, chloride 105, bicarbonate 26, BUN 17, creatinine 0.7, glucose 123, calcium 9.7, AST 13, ALT 22, CRP 14.6 up from 0.6 on 05/28/2016. IMAGING STUDY: Abdominal ultrasound done this morning shows two small perihepatic fluid collections, possibly related to cholecystotomy tube removal, these measure 2.5 x 2.9 cm and 3.3 x 2.9 cm, respectively. IMPRESSION: 1. Hepatic abscess. Probably related to cholecystotomy tube. Blood cultures have been drawn, are still pending. There is some purulent discharge from right upper quadrant site of tube removal, will be cultured. 2. History of hydrocephalus. Ventriculoperitoneal ([employer]ARMER) shunt has been removed. Patient asymptomatic after 2 weeks of removal, which is pretty encouraging. PLAN: Wound culture from the right upper quadrant. Start vancomycin 1 gram IV every 12 hours and meropenem 1 gram IV every 8 hours. Will discuss with interventional radiology whether those abscesses could be drained or they are too small to be able to be drained.
[2016-05-31] MEDS: NICOTINE 7 MG/24 HR TRANSDERMAL TD SCH (21:43)
[2016-05-31] MEDS: SERTRALINE HCL 50 MG TAB PO SCH (21:43)
[2016-05-31 22:10] VITALS: BP 132/60
[2016-05-31] MEDS: SODIUM CHLORIDE 0.9% INJ 10 ML SYR IV PRN (22:57)
[2016-06-01] MEDS: SODIUM CHLORIDE 0.9% INJ 10 ML SYR IV SCH ×2 (05:17→18:20)
[2016-06-01] MEDS: MEROPENEM INJ 1 GM in D5W MINI-BAG PLUS 100 ML IV SCH ×3 (05:18→20:21)
[2016-06-01] MEDS: traMADol 50 MG TAB PO PRN ×2 (06:10→23:14)
[2016-06-01 06:30] VITALS: BP 147/67
[2016-06-01 06:45] LABS: BASO % 0.3 % (0.0-1.0); EOS # 0.2 K/mm3 (0.0-0.50); EOS % 1.6 % (0.0-3.0); LARGE UNSTAINED CELL # 0.2 K/mm3 (0.0-0.4); LARGE UNSTAINED CELL % 1.3 % (0.0-4.0); LYMPH % 14.4 % (24.0-44.0); MEAN CORPUSCULAR HEMOGLOBIN 30.2 pg (27.0-33.0); MEAN CORPUSCULAR HGB CONC 32.6 g/dl (32.0-36.5); MEAN CORPUSCULAR VOLUME 92.8 fl (80.0-96.0); MONO % 8.1 % (0.0-5.0); NEUTROPHILS # 9.4 K/mm3 (1.8-7.7); NEUTROPHILS % 74.2 % (36.0-66.0); PLATELET COUNT, AUTOMATED 315 k/mm3 (150-450); WHITE BLOOD COUNT 12.7 K/mm3 (4.0-10.0)
[2016-06-01] MEDS: VANCOMYCIN HCL 1,000 MG, VIAL MATE ADAPTER 1 EACH in D5W 250 ML IV SCH ×2 (06:51→08:00)
[2016-06-01 06:54] LABS: ALBUMIN 2.9 GM/DL (3.2-5.2); ALBUMIN/GLOBULIN RATIO 0.91 (1.00-1.93); ALKALINE PHOSPHATASE 85 U/L (45-117); ALT/SGPT 16 U/L (12-78); ANION GAP 9 MEQ/L (8-16); AST/SGOT 9 U/L (15-37); BILIRUBIN,TOTAL 0.6 MG/DL (0.2-1.0); BLOOD UREA NITROGEN 15 MG/DL (7-18); CALCIUM LEVEL 9.2 MG/DL (8.8-10.2); CARBON DIOXIDE LEVEL 24 MEQ/L (21-32); CHLORIDE LEVEL 103 MEQ/L (98-107); GLOMERULAR FILTRATION RATE > 60.0 (>39); GLUCOSE, FASTING 100 MG/DL (83-110); POTASSIUM SERUM 4.1 MEQ/L (3.5-5.1); SODIUM LEVEL 136 MEQ/L (136-145); TOTAL PROTEIN 6.1 GM/DL (6.4-8.2)
[2016-06-01 07:30] LABS: ERYTHROCYTE SEDIMENTATION RATE 63 mm/hr (0-30)
[2016-06-01] MEDS: ADVAIR DISKUS 250/50 INH PWD INH SCH ×2 (07:59→21:17)
--- NOTE | 2016-06-01 08:15 | IPNPDOC ---
Subjective Date Seen The patient was seen on 06/01/16. Subjective Chief Complaint/HPI The patient is a 70-year-old female admitted with a reason for visit of Metabolic Encephalopathy. Events since last encounter c/o severe ENRIQUEZ. Noted confusion over the last 2-3 days, worse at night. Abdominal pain and nausea mildly improved. Patient c/o feeling poorly overall. Constitutional: Denies: Chills, Fever, Night Sweats ENT: Reports: Head Aches, Denies: Dysphagia, Ear Pain, Sinus Congestion, Sore Throat Pulmonary: Denies: Cough, Dyspnea Cardiovascular: Denies: Chest Pain, Lt Headedness, Orthopnea, Palpitations, Paroxysmal Noc. Dyspnea Gastrointestinal: Reports: Abdominal Pain (RUQ), Nausea Genitourinary: Denies: Dysuria, Frequency, Incontinence, Retention Musculoskeletal: Denies: Back Pain, Joint Pain, Muscle Pain, Neck Pain, Spasms Neurological: Reports: Confusion, Denies: Change in speech, Numbness, Weakness Objective Physical Examination General Exam: Positive: Alert, No Acute Distress Eye Exam: Positive: PERRLA, Negative: Sclera icteric ENT Exam: Positive: Mucous membr. moist/pink, Pharynx Normal Neck Exam: Positive: Supple, Negative: JVD, thyromegaly Chest Exam: Positive: Clear to auscultation, Diminished Heart Exam: Positive: Normal S1, Normal S2, Rate Normal, Regular Rhythm, Negative: Murmurs, Rubs Abdomen Exam: Positive: Hernia (midline incisional hernia, soft, non-tender), Normal bowel sounds, Other, Soft, Tenderness (RUQ), Negative: Hepatospenomegaly Extremity Exam: Positive: Normal pulses, Negative: Clubbing, Cyanosis, Edema Skin Exam: Positive: Nl turgor and temperature, Negative: Breakdown Neuro Exam: Positive: Other (alert to self and place. disoriented to time: 1974 , Obama is President) Psych Exam: Positive: Other (vague reponses, oritned to place and person. Disoriented to time: 1974) Assessment /Plan Problems (1) Common bile duct (CBD) obstruction Status: Acute Problem Text: D2 meropenem/D16 vanco 06/01/2016: blood cxs pending. Will eval CT abd/pelvis today for further evaluation d/t recent confusion and pain. 05/31/16 BCX x 2 P 05/31/16 ABD WCX P 05/31/2016: RUQ pain c WBC to 17.2-STAT RUQ US s obvious ductal dilatation; therefore, favor transient bacteremia-meropenem started 05/30/16- Dr Centeno removed cholecystectomy tube 05/07/16 percutaneous transhepatic cholangiogram, distal CBD stricture biopsy ( benign by pathology), CBD stone removal and internal-external biliary drainage catheter placement by Dr. Centeno 05/06/16 ERCP unable to perform cholangiogram-Reindl to ask IR for CBD stent placement . (2) Infection of CERTIFIED PHYSICIAN'S ASSISTANT (ventriculoperitoneal) shunt Status: Acute Problem Text: vanco D15 06/01/2016: Now with ENRIQUEZ and confusion that is worsening. Dr. Kumari notified will see patient later today. Advised LP to be completed. 05/28 stable MS, afebrile, WBC-per ID can hold on repeat LP if not needing CERTIFIED PHYSICIAN'S ASSISTANT shunt-per Kenyetta favor hold repeat CERTIFIED PHYSICIAN'S ASSISTANT 05/20 repeat LP CSF CX S. epi-although took 6D to grow out! 05/26 CT head stable 05/27/2016: WBC 6.7, Tm 99.7-given stable, but now repeat CSF from 05/20 +, will need to repeat-d/w Tashia 05/24/2016: See notes below for plan. No changes. 05/23 - Had LP on 05/[address] Kumari. His note advises to repeat spinal tap in several days or sooner if needed to drain up to 30 ml of CSF, as the the LP from 05/[address] just [address] Lao from [place] is following and advises continuing the Vanco until 05/27. Will transfer her out of ICU to PCU. possibly able to treat c serial therapeutic LP +/- acetazolamide 05/20/16 Tm 99, WBC 7.5, LP took off 12 cc-patient tolerated c mild post-spinal frontal ENRIQUEZ 05/17/16 + S. epidermidis by shunt tap sens to vanco 05/10: The CERTIFIED PHYSICIAN'S ASSISTANT shunt was externalized by neurosurgery tonight because of evidence of infection, then 05/17/[address] Kumari. 05/08 normal shunt study, neurosurgery suggests shunt likely colonized, and hopes to treat with abx; prefers LP and culture to directly culturing from shunt 05/06/16 MRI brain s/c mild hydro s change, no obvious infection (meningitis, shuntitis) (3) Incisional hernia Status: Acute Problem Text: Nausea resolved. waiting for re-read of CT scan. ? new onset. Asked for re-read of Ct scan completed 05/01 to see if this is a new finding. May be contributing factor to nausea. (4) Metabolic encephalopathy Status: Acute Response to Treatment: Stable Problem Text: 06/01/2016: Now with ENRIQUEZ and confusion that is worsening. Dr. Kumari notified will see patient later today. Advised LP to be completed. 05/31/2016: feeling generally poor with elevated WBC. Re-eval abdominal U S d/t c /o pain. Consider repeat LP if US negative. 05/29/2016: had some confusion last night. Nursing to report to Neurosurgery for repeat evaluation. 05/27/2016: unchanged. 05/24/2016: unchanged MS. Mildly vague at times yet A/o x 3 05/23 - Pt's mental status seem stable today. She knew she was in [facility]. She knew the year and the president. 05/22 - Pt's mental status seem stable today. She knew she was in [facility]. She knew the year and the president. Nursing is concerned that the patient has been less stable with ambulation and requiring the walker more. Will re-consult PT. 2/7 - Mental status stable. 2/6 - Mental status stable. 2/4 - mental status stable 2/3 - mental status improved - up in chair, alert a little vague but at baseline 2/2 - Mental status has improved with externalization of shunt and tx of infection favor secondary to CERTIFIED PHYSICIAN'S ASSISTANT shunt infection (5) COPD (chronic obstructive pulmonary disease) Status: Chronic Response to Treatment: Stable Problem Text: Respiratory status stable. (6) Hypertension Status: Chronic Problem Text: 05/20 - Amlodipine was decreased to 5 mg daily. (7) Cerebral aneurysm Permanent Comment: s/p ICA/basilar coiling, s/p CERTIFIED PHYSICIAN'S ASSISTANT shunt 2014 Last Edited By: Yoseph Medina MD on May 10, 2016 13:40 Status: Chronic Response to Treatment: Stable Problem Text: S/P ICA/Basilar coiling and CERTIFIED PHYSICIAN'S ASSISTANT shunt 2014. (8) S/P splenectomy Status: Chronic Response to Treatment: Stable Problem Text: obviously higher sepsis risk Plan/VTE VTE Prophylaxis Ordered?: Yes (Lovenox) Plan Therapy: PT, OT Attending Physician Note: I saw and examined this patient. The case was reviewed with the RPA. VS, I&O, 24H, [place] Vital Signs/I&O Vital Signs Date Time Temp Pulse Resp B/P Pulse Ox O2 Delivery O2 Flow Rate FiO2 06/01/16 06:40 18 05/31/16 22:10 98.5 100 132/60 90 Room Air I&O- Last 24 Hours up to 6 AM 06/01/16 06:00 Intake Total 1030 ml Output Total 150 ml Balance 880 ml Laboratory Data 24H LABS Laboratory Tests 2 06/01/16 05:19: White Blood Count 12.7H, Red Blood Count 3.65L, Hemoglobin 11.0L, Hematocrit 33.8L, Mean Corpuscular Volume 92.8, Mean Corpuscular Hemoglobin 30.2, Mean Corpuscular Hemoglobin Concent 32.6, Red Cell Distribution Width 14.0, Platelet Count 315, Neutrophils (%) (Auto) 74.2H, Lymphocytes (%) (Auto) 14.4L, Monocytes (%) (Auto) 8.1H, Eosinophils (%) (Auto) 1.6, Basophils (%) (Auto) 0.3 , Neutrophils # (Auto) 9.4H, Lymphocytes # (Auto) 2.0, Monocytes # (Auto) 1.0H, Eosinophils # (Auto) 0.2, Basophils # (Auto) 0.0, Erythrocyte Sedimentation Rate 63H, Large Unclassified Cells # 0.2, Large Unclassified Cells % 1.3 06/01/16 05:42: Blood Urea Nitrogen 15, Creatinine 0.70, Sodium Level 136, Potassium Level 4.1, Chloride Level 103, Carbon Dioxide Level 24, Calcium Level 9.2, Aspartate Amino Transf (AST/SGOT) 9L, Alanine Aminotransferase (ALT/SGPT) 16, Alkaline Phosphatase 85, Total Bilirubin 0.6, Total Protein 6.1L, Albumin 2.9L, Albumin/ Globulin Ratio 0.91L, Anion Gap 9, C-Reactive Protein, Quantitative 21.60H, Glomerular Filtration Rate > 60.0 CBC/BMP Laboratory Tests 06/01/16 05:19 Red Blood Count 3.65 L, Mean Corpuscular Volume 92.8, Mean Corpuscular Hemoglobin 30.2, Mean Corpuscular Hemoglobin Concent 32.6, Red Cell Distribution Width 14.0, Neutrophils (%) (Auto) 74.2 H, Lymphocytes (%) (Auto) 14.4 L, Monocytes (%) (Auto) 8.1 H, Eosinophils (%) (Auto) 1.6, Basophils (%) ( Auto) 0.3, Neutrophils # (Auto) 9.4 H, Lymphocytes # (Auto) 2.0, Monocytes # ( Auto) 1.0 H, Eosinophils # (Auto) 0.2, Basophils # (Auto) 0.0 06/01/16 05:42 Calcium Level 9.2, Aspartate Amino Transf (AST/SGOT) 9 L, Alanine Aminotransferase (ALT/SGPT) 16, Alkaline Phosphatase 85, Total Bilirubin 0.6, Total Protein 6.1 L, Albumin 2.9 L Microbiology Microbiology 05/31/16 Blood Culture, Received Pending 05/31/16 Blood Culture, Received Pending 05/31/16 Gram Stain - Final, Resulted 05/31/16 Wound Culture, Resulted Pending Alvina Fan Jun 01, 2016 08:15 Abhay Denton M.D. Jun 02, 2016 17:52
[2016-06-01] MEDS ORDERED: GASTROGRAFIN SOLUTION 30ML PO ONE (09:00)
[2016-06-01] MEDS: POTASSIUM CHLORIDE 10 MEQ SR TABLET PO SCH ×2 (09:25→20:21)
[2016-06-01] MEDS: ACETAMINOPHEN TAB 650MG DOSE (2X325MG) PO PRN (09:27)
[2016-06-01] MEDS: amLODIPine 5 MG TAB PO SCH (09:27)
[2016-06-01] MEDS: OMEPRAZOLE 20 MG CAP PO SCH (09:27)
[2016-06-01] MEDS: NYSTATIN CREAM 15 GM TOP SCH ×2 (09:28→22:04)
[2016-06-01] MEDS: ENOXAPARIN 40 MG/0.4 ML SYRINGE (J1650) SC SCH (09:29)
[2016-06-01] MEDS ORDERED: GASTROGRAFIN SOLUTION 30ML (Q9963) PO ONE (09:30)
[2016-06-01 09:43] LABS: INR 1.13
[2016-06-01] MEDS ORDERED: ISOVUE-370 76% 100ML VIAL (Q9967) As Ordered ONE (10:11)
--- NOTE | 2016-06-01 11:32 | REP ---
Clinical: Abdominal pain with fever and leukocytosis. Status post cholecystostomy tube removal. Technique: Axial contrast enhanced images from the lung bases to the pubic symphysis using oral and 100 ml Isovue 370 intravenous contrast material with coronal and sagittal re-formations. Comparison: 05/02/2016. Findings: The previously identified cholecystostomy tube as well as the previously noted ventriculoperitoneal shunt tube both have been removed in comparison to 05/02/2016. Inflammatory stranding in the right upper quadrant adjacent to the fundus of the gallbladder at the site of prior cholecystostomy tube is appreciated with small non drainable phlegmonous area measuring roughly 2.3 x 3.2 x 1.5 cm (images 51 - 63). A small area of hepatic subcapsular phlegmonous change is also identified along the lateral aspect of the right lobe (images 38 - 50). Fatty infiltration to the liver noted. The patient is status post splenectomy with splenules in the left upper quadrant unchanged from prior examination. The gallbladder and biliary system are grossly unremarkable. The pancreas and left adrenal gland are normal. The right adrenal gland demonstrates stable 1.6 cm atypical adenoma. The kidneys demonstrate scattered small bilateral cysts and nonobstructing intrarenal calculi measuring up to 5 mm in left kidney and 12 mm in the right kidney without hydronephrosis or perinephric stranding. The enteric system is without obstruction or acute inflammatory process. Pelvis demonstrates normal bladder and evidence for prior hysterectomy. No ascites. No free air. Small fat containing ventral hernia remains stable. Atherosclerotic changes to the aorta and vasculature without aneurysm. Musculoskeletal structures demonstrate degenerative changes. Lung bases demonstrate bibasilar atelectasis (right greater than left). Impression: 1. Inflammatory changes noted in the right upper quadrant adjacent to the gallbladder fundus and small subcapsular phlegmon along the lateral aspect of the right hepatic lobe. Findings are detailed above and without definite drainable collection noted. 2. Bibasilar atelectasis. 3. Chronic stable findings as described above including renal cysts and nonobstructing renal calculi, atherosclerotic changes to the vasculature and degenerative changes the musculoskeletal structures. Signed by Cordell Ramos MD 06/01/2016 11:24 A
--- NOTE | 2016-06-01 11:36 | REP ---
Clinical: Leukocytosis. Status post ventriculoperitoneal shunt removal. Comparison: 05/26/2016. Findings: Age-related atrophy and microvascular ischemic changes are again appreciated and unchanged. Right frontal chencho hole at the site of prior ventriculoperitoneal shunt is identified and previously noted small focus of pneumocephalus has resolved. The patient is status post aneurysmal coiling. [place]-white differentiation is maintained. There is no evidence for acute intracranial hemorrhage, mass/mass effect, pathology or infarction. No extra-axial fluid collection. Paranasal sinuses and mastoid air cells are clear. Impression: Age related atrophy and microvascular ischemic changes. Postoperative changes. No acute intracranial hemorrhage, infarction, or mass/mass effect. Signed by Cordell Ramos MD 06/01/2016 11:27 A
[2016-06-01 14:00] VITALS: BP 114/57
[2016-06-01] MEDS: ONDANSETRON 4MG/2ML VIAL (J2405) IV PRN (18:21)
[2016-06-01] MEDS: NICOTINE 7 MG/24 HR TRANSDERMAL TD SCH (20:20)
[2016-06-01] MEDS: SERTRALINE HCL 50 MG TAB PO SCH (20:21)
[2016-06-01 20:45] VITALS: BP 123/61
[2016-06-01 21:18] VITALS: O2SAT 92
[2016-06-01] MEDS: SODIUM CHLORIDE 0.9% INJ 10 ML SYR IV PRN (21:24)
[2016-06-02] MEDS: VANCOMYCIN HCL 1,000 MG, VIAL MATE ADAPTER 1 EACH in D5W 250 ML IV SCH (01:06)
[2016-06-02] MEDS: SODIUM CHLORIDE 0.9% INJ 10 ML SYR IV PRN (01:07)
[2016-06-02] MEDS: SODIUM CHLORIDE 0.9% INJ 10 ML SYR IV SCH ×2 (05:10→18:35)
[2016-06-02] MEDS: MEROPENEM INJ 1 GM in D5W MINI-BAG PLUS 100 ML IV SCH ×3 (05:10→20:21)
[2016-06-02 06:15] VITALS: BP 132/60
[2016-06-02 06:35] LABS: BASO % 0.3 % (0.0-1.0); EOS # 0.3 K/mm3 (0.0-0.50); EOS % 2.6 % (0.0-3.0); LARGE UNSTAINED CELL # 0.1 K/mm3 (0.0-0.4); LARGE UNSTAINED CELL % 1.3 % (0.0-4.0); LYMPH # 1.7 K/mm3 (1.5-4.5); MEAN CORPUSCULAR HEMOGLOBIN 30.8 pg (27.0-33.0); MEAN CORPUSCULAR HGB CONC 33.3 g/dl (32.0-36.5); MEAN CORPUSCULAR VOLUME 92.4 fl (80.0-96.0); MONO # 0.8 K/mm3 (0.0-0.8); MONO % 7.8 % (0.0-5.0); NEUTROPHILS # 7.7 K/mm3 (1.8-7.7); PLATELET COUNT, AUTOMATED 327 k/mm3 (150-450); RED CELL DISTRIBUTION WIDTH 13.9 % (11.5-14.5); WHITE BLOOD COUNT 10.6 K/mm3 (4.0-10.0)
[2016-06-02 06:44] LABS: ALBUMIN 2.7 GM/DL (3.2-5.2); ALBUMIN/GLOBULIN RATIO 0.71 (1.00-1.93); ALKALINE PHOSPHATASE 76 U/L (45-117); ALT/SGPT 14 U/L (12-78); ANION GAP 9 MEQ/L (8-16); AST/SGOT 10 U/L (15-37); BILIRUBIN,TOTAL 0.4 MG/DL (0.2-1.0); BLOOD UREA NITROGEN 12 MG/DL (7-18); CALCIUM LEVEL 9.3 MG/DL (8.8-10.2); CARBON DIOXIDE LEVEL 24 MEQ/L (21-32); CHLORIDE LEVEL 100 MEQ/L (98-107); CREATININE FOR GFR 0.69 MG/DL (0.55-1.02); GLOMERULAR FILTRATION RATE > 60.0 (>39); GLUCOSE, FASTING 118 MG/DL (83-110); POTASSIUM SERUM 3.7 MEQ/L (3.5-5.1); SODIUM LEVEL 133 MEQ/L (136-145); TOTAL PROTEIN 6.5 GM/DL (6.4-8.2)
[2016-06-02 07:55] LABS: ERYTHROCYTE SEDIMENTATION RATE 61 mm/hr (0-30)
[2016-06-02] MEDS: ADVAIR DISKUS 250/50 INH PWD INH SCH ×2 (08:58→20:00)
[2016-06-02] MEDS: OMEPRAZOLE 20 MG CAP PO SCH (09:07)
[2016-06-02] MEDS: ENOXAPARIN 40 MG/0.4 ML SYRINGE (J1650) SC SCH (09:08)
[2016-06-02] MEDS: POTASSIUM CHLORIDE 10 MEQ SR TABLET PO SCH ×2 (09:08→20:21)
[2016-06-02] MEDS: ACETAMINOPHEN TAB 650MG DOSE (2X325MG) PO PRN ×2 (09:09→20:43)
[2016-06-02] MEDS: amLODIPine 5 MG TAB PO SCH (09:11)
[2016-06-02] MEDS: NYSTATIN CREAM 15 GM TOP SCH ×2 (09:13→20:22)
--- NOTE | 2016-06-02 11:51 | IPNPDOC ---
Subjective Date Seen The patient was seen on 06/02/16. Subjective Chief Complaint/HPI The patient is a 70-year-old female admitted with a reason for visit of Metabolic Encephalopathy. Constitutional: Denies: Chills, Fever, Night Sweats ENT: Denies: Dysphagia, Ear Pain, Head Aches Pulmonary: Denies: Cough, Dyspnea Cardiovascular: Denies: Chest Pain, Lt Headedness, Orthopnea, Palpitations, Paroxysmal Noc. Dyspnea Gastrointestinal: Denies: Abdominal Pain, Constipation, Diarrhea, Nausea, Vomiting Neurological: Denies: Change in speech, Confusion, Numbness, Weakness Objective Physical Examination General Exam: Positive: Alert, No Acute Distress Eye Exam: Positive: PERRLA, Negative: Sclera icteric ENT Exam: Positive: Mucous membr. moist/pink, Pharynx Normal Neck Exam: Positive: Supple, Negative: JVD, thyromegaly Chest Exam: Positive: Clear to auscultation, Diminished Heart Exam: Positive: Normal S1, Normal S2, Rate Normal, Regular Rhythm, Negative: Murmurs, Rubs Abdomen Exam: Positive: Hernia (midline incisional hernia, soft, non-tender), Normal bowel sounds, Other, Soft, Tenderness (RUQ), Negative: Hepatospenomegaly Extremity Exam: Positive: Normal pulses, Negative: Clubbing, Cyanosis, Edema Skin Exam: Positive: Nl turgor and temperature, Negative: Breakdown Neuro Exam: Positive: Other (alert to self and place. disoriented to time: 1974 , [place]hanahan is President) Psych Exam: Positive: Other (vague reponses, oritned to place and person. Disoriented to time: 1974) Assessment /Plan Problems (1) Common bile duct (CBD) obstruction Status: Acute Problem Text: D3 meropenem/D17 vanco 06/02/2016: blood culture negative. 06/01/2016: blood cxs pending. Will eval CT abd/pelvis today for further evaluation d/t recent confusion and pain. 05/31/16 BCX x 2 P 05/31/16 ABD WCX P 05/31/2016: RUQ pain c WBC to 17.2-STAT RUQ US s obvious ductal dilatation; therefore, favor transient bacteremia-meropenem started 05/30/16- Dr Centeno removed cholecystectomy tube 05/07/16 percutaneous transhepatic cholangiogram, distal CBD stricture biopsy ( benign by pathology), CBD stone removal and internal-external biliary drainage catheter placement by Dr. Centeno 05/06/16 ERCP unable to perform cholangiogram-Reindl to ask IR for CBD stent placement . (2) Infection of OPTICAL SALES ASSOCIATE (ventriculoperitoneal) shunt Status: Acute Problem Text: vanco D16 06/02/2016: mentation slightly improved. No ENRIQUEZ. Vancomycin stopped due to gram negative cocci on wound cx. 06/01/2016: Now with ENRIQUEZ and confusion that is worsening. Dr. Kumari notified will see patient later today. Advised LP to be completed. 05/28 stable MS, afebrile, WBC-per GERMAINE can hold on repeat LP if not needing OPTICAL SALES ASSOCIATE shunt-per Kenyetta favor hold repeat OPTICAL SALES ASSOCIATE 05/20 repeat LP CSF CX S. epi-although took 6D to grow out! 05/26 CT head stable 05/27/2016: WBC 6.7, Tm 99.7-given stable, but now repeat CSF from 05/20 +, will need to repeat-d/w Tashia 05/24/2016: See notes below for plan. No changes. 05/23 - Had LP on 05/[address] Kumari. His note advises to repeat spinal tap in several days or sooner if needed to drain up to 30 ml of CSF, as the the LP from 05/20 just [address] Lao from [place] is following and advises continuing the Vanco until 05/27. Will transfer her out of ICU to PCU. possibly able to treat c serial therapeutic LP +/- acetazolamide 05/20/16 Tm 99, WBC 7.5, LP took off 12 cc-patient tolerated c mild post-spinal frontal ENRIQUEZ 05/17/16 + S. epidermidis by shunt tap sens to vanco 05/10: The OPTICAL SALES ASSOCIATE shunt was externalized by neurosurgery tonight because of evidence of infection, then 05/17/[address] Kumari. 05/08 normal shunt study, neurosurgery suggests shunt likely colonized, and hopes to treat with abx; prefers LP and culture to directly culturing from shunt 05/06/16 MRI brain s/c mild hydro s change, no obvious infection (meningitis, shuntitis) (3) Incisional hernia Status: Acute Problem Text: Nausea resolved. waiting for re-read of CT scan. ? new onset. Asked for re-read of Ct scan completed 05/01 to see if this is a new finding. May be contributing factor to nausea. (4) Metabolic encephalopathy Status: Acute Response to Treatment: Stable Problem Text: 06/01/2016: Now with ENRIQUEZ and confusion that is worsening. Dr. Kumari notified will see patient later today. Advised LP to be completed. 05/31/2016: feeling generally poor with elevated WBC. Re-eval abdominal U S d/t c /o pain. Consider repeat LP if US negative. 05/29/2016: had some confusion last night. Nursing to report to Neurosurgery for repeat evaluation. 05/27/2016: unchanged. 05/24/2016: unchanged MS. Mildly vague at times yet A/o x 3 05/23 - Pt's mental status seem stable today. She knew she was in [facility]. She knew the year and the president. 05/22 - Pt's mental status seem stable today. She knew she was in [facility]. She knew the year and the president. Nursing is concerned that the patient has been less stable with ambulation and requiring the walker more. Will re-consult PT. 05/21 - Mental status stable. 2/ - Mental status stable. 2/4 - mental status stable 2/3 - mental status improved - up in chair, alert a little vague but at baseline 2/2 - Mental status has improved with externalization of shunt and tx of infection favor secondary to OPTICAL SALES ASSOCIATE shunt infection (5) COPD (chronic obstructive pulmonary disease) Status: Chronic Response to Treatment: Stable Problem Text: Respiratory status stable. (6) Hypertension Status: Chronic Problem Text: 05/20 - Amlodipine was decreased to 5 mg daily. (7) Cerebral aneurysm Permanent Comment: s/p ICA/basilar coiling, s/p OPTICAL SALES ASSOCIATE shunt 2014 Last Edited By: Yoseph Medina MD on May 10, 2016 13:40 Status: Chronic Response to Treatment: Stable Problem Text: S/P ICA/Basilar coiling and OPTICAL SALES ASSOCIATE shunt 2014. (8) S/P splenectomy Status: Chronic Response to Treatment: Stable Problem Text: obviously higher sepsis risk Plan/VTE VTE Prophylaxis Ordered?: Yes (Lovenox) Plan Therapy: PT, OT Attending physician note: Patient seen and examined. Case reviewed with RPA. VS, I&O, 24H, [place] Vital Signs/I&O Vital Signs Date Time Temp Pulse Resp B/P Pulse Ox O2 Delivery O2 Flow Rate FiO2 06/02/16 09:15 Room Air 06/02/16 09:11 80 127/71 06/02/16 06:15 96.8 18 92 I&O- Last 24 Hours up to 6 AM 06/02/16 06:00 Intake Total 1530 ml Output Total 500 ml Balance 1030 ml Laboratory Data 24H LABS Laboratory Tests 2 06/02/16 05:52: Blood Urea Nitrogen 12, Creatinine 0.69, Sodium Level 133L, Potassium Level 3.7 , Chloride Level 100, Carbon Dioxide Level 24, Calcium Level 9.3, Aspartate Amino Transf (AST/SGOT) 10L, Alanine Aminotransferase (ALT/SGPT) 14, Alkaline Phosphatase 76, Total Bilirubin 0.4, Total Protein 6.5, Albumin 2.7L, Albumin/ Globulin Ratio 0.71L, Anion Gap 9, White Blood Count 10.6H, Red Blood Count 3.49L, Hemoglobin 10.7L, Hematocrit 32.2L, Mean Corpuscular Volume 92.4, Mean Corpuscular Hemoglobin 30.8, Mean Corpuscular Hemoglobin Concent 33.3, Red Cell Distribution Width 13.9, Platelet Count 327, Neutrophils (%) (Auto) 73.0H, Lymphocytes (%) (Auto) 15.0L, Monocytes (%) (Auto) 7.8H, Eosinophils (%) (Auto) 2.6, Basophils (%) (Auto) 0.3, Neutrophils # (Auto) 7.7, Lymphocytes # (Auto) 1.7, Monocytes # (Auto) 0.8, Eosinophils # (Auto) 0.3, Basophils # (Auto) 0.0, C -Reactive Protein, Quantitative 14.70H, Erythrocyte Sedimentation Rate 61H, Glomerular Filtration Rate > 60.0, Large Unclassified Cells # 0.1, Large Unclassified Cells % 1.3 CBC/BMP Laboratory Tests 06/02/16 05:52 Calcium Level 9.3, Aspartate Amino Transf (AST/SGOT) 10 L, Alanine Aminotransferase (ALT/SGPT) 14, Alkaline Phosphatase 76, Total Bilirubin 0.4, Total Protein 6.5, Albumin 2.7 L, Red Blood Count 3.49 L, Mean Corpuscular Volume 92.4, Mean Corpuscular Hemoglobin 30.8, Mean Corpuscular Hemoglobin Concent 33.3, Red Cell Distribution Width 13.9, Neutrophils (%) (Auto) 73.0 H, Lymphocytes (%) (Auto) 15.0 L, Monocytes (%) (Auto) 7.8 H, Eosinophils (%) (Auto ) 2.6, Basophils (%) (Auto) 0.3, Neutrophils # (Auto) 7.7, Lymphocytes # (Auto) 1.7, Monocytes # (Auto) 0.8, Eosinophils # (Auto) 0.3, Basophils # (Auto) 0.0 Microbiology Microbiology 05/31/16 Blood Culture - Preliminary, Resulted No Growth after 48 hours. All Specime... 05/31/16 Blood Culture - Preliminary, Resulted No Growth after 48 hours. All Specime... 05/31/16 Gram Stain - Final, Complete 05/31/16 Wound Culture - Final, Complete Citrobacter Freundii Klebsiella Pneumoniae Escherichia Hermannii Alvina Fan [facility] Jun 02, 2016 11:51 Abhay Denton M.D. Jun 03, 2016 12:55
[2016-06-02 14:00] VITALS: BP 112/64
[2016-06-02] MEDS: SERTRALINE HCL 50 MG TAB PO SCH (20:21)
[2016-06-02] MEDS: NICOTINE 7 MG/24 HR TRANSDERMAL TD SCH (20:21)
[2016-06-02 22:00] VITALS: BP 115/57
[2016-06-03] MEDS: MEROPENEM INJ 1 GM in D5W MINI-BAG PLUS 100 ML IV SCH ×3 (05:18→20:20)
[2016-06-03] MEDS: SODIUM CHLORIDE 0.9% INJ 10 ML SYR IV PRN (05:19)
[2016-06-03] MEDS: ACETAMINOPHEN TAB 650MG DOSE (2X325MG) PO PRN ×2 (05:25→09:18)
[2016-06-03 05:55] LABS: BASO % 0.5 % (0.0-1.0); EOS # 0.4 K/mm3 (0.0-0.50); EOS % 4.7 % (0.0-3.0); LARGE UNSTAINED CELL # 0.1 K/mm3 (0.0-0.4); LARGE UNSTAINED CELL % 1.9 % (0.0-4.0); LYMPH # 1.7 K/mm3 (1.5-4.5); LYMPH % 20.5 % (24.0-44.0); MEAN CORPUSCULAR HEMOGLOBIN 30.8 pg (27.0-33.0); MEAN CORPUSCULAR VOLUME 93.5 fl (80.0-96.0); MONO # 0.6 K/mm3 (0.0-0.8); MONO % 7.5 % (0.0-5.0); PLATELET COUNT, AUTOMATED 382 k/mm3 (150-450); RED CELL DISTRIBUTION WIDTH 13.8 % (11.5-14.5); WHITE BLOOD COUNT 7.7 K/mm3 (4.0-10.0)
[2016-06-03 06:00] VITALS: BP 121/58
[2016-06-03 06:15] LABS: ERYTHROCYTE SEDIMENTATION RATE 65 mm/hr (0-30)
[2016-06-03 06:19] LABS: ALBUMIN 2.8 GM/DL (3.2-5.2); ALBUMIN/GLOBULIN RATIO 0.68 (1.00-1.93); ALKALINE PHOSPHATASE 75 U/L (45-117); ALT/SGPT 13 U/L (12-78); ANION GAP 9 MEQ/L (8-16); AST/SGOT 8 U/L (15-37); BILIRUBIN,TOTAL 0.2 MG/DL (0.2-1.0); BLOOD UREA NITROGEN 13 MG/DL (7-18); CALCIUM LEVEL 9.4 MG/DL (8.8-10.2); CARBON DIOXIDE LEVEL 26 MEQ/L (21-32); CHLORIDE LEVEL 106 MEQ/L (98-107); CREATININE FOR GFR 0.76 MG/DL (0.55-1.02); GLOMERULAR FILTRATION RATE > 60.0 (>39); GLUCOSE, FASTING 104 MG/DL (83-110); SODIUM LEVEL 141 MEQ/L (136-145); TOTAL PROTEIN 6.9 GM/DL (6.4-8.2)
[2016-06-03] MEDS: SODIUM CHLORIDE 0.9% INJ 10 ML SYR IV SCH ×2 (06:27→17:52)
[2016-06-03] MEDS: ADVAIR DISKUS 250/50 INH PWD INH SCH ×2 (07:40→19:30)
[2016-06-03] MEDS: ENOXAPARIN 40 MG/0.4 ML SYRINGE (J1650) SC SCH (09:17)
[2016-06-03] MEDS: OMEPRAZOLE 20 MG CAP PO SCH (09:18)
[2016-06-03] MEDS: POTASSIUM CHLORIDE 10 MEQ SR TABLET PO SCH ×2 (09:18→20:19)
[2016-06-03] MEDS: NYSTATIN CREAM 15 GM TOP SCH ×2 (09:19→20:21)
[2016-06-03] MEDS: amLODIPine 5 MG TAB PO SCH (09:21)
--- NOTE | 2016-06-03 11:29 | IPNPDOC ---
Subjective Date Seen The patient was seen on 06/03/16. Subjective Chief Complaint/HPI The patient is a 70-year-old female admitted with a reason for visit of Metabolic Encephalopathy. Events since last encounter Pt states she feels fair. Denies any new issues. Denies CP, SOB, Abd pain. Constitutional: Denies: Chills, Fever Pulmonary: Denies: Dyspnea Cardiovascular: Denies: Chest Pain Gastrointestinal: Denies: Abdominal Pain, Nausea, Vomiting Objective Physical Examination General Exam: Positive: Alert, No Acute Distress Eye Exam: Positive: PERRLA, Negative: Sclera icteric ENT Exam: Positive: Mucous membr. moist/pink, Pharynx Normal Neck Exam: Positive: Supple, Negative: JVD, thyromegaly Chest Exam: Positive: Clear to auscultation, Diminished Heart Exam: Positive: Normal S1, Normal S2, Rate Normal, Regular Rhythm, Negative: Murmurs, Rubs Abdomen Exam: Positive: Hernia (midline incisional hernia, soft, non-tender), Normal bowel sounds, Other, Soft, Negative: Hepatospenomegaly, Tenderness Extremity Exam: Positive: Normal pulses, Negative: Clubbing, Cyanosis, Edema Skin Exam: Positive: Nl turgor and temperature, Negative: Breakdown Neuro Exam: Positive: Other (alert to self and place. disoriented to time: 1974 , [place] is President) Psych Exam: Positive: Other (vague reponses, oritned to place and person. Disoriented to time: 1974) Assessment /Plan Problems (1) Hepatic abscess Status: Acute Problem Text: Hepatic abscess/phlegmon visualized on CT abdomen and pelvis 06/01. At the time of the CT, the phlegmon did not have a drainable collection. Infectious disease had recommended vancomycin and meropenem on 05/31/16, although this was stopped due to right upper quadrant cultures coming back with gram-negative organisms. However, there his been no drainage culture of the phlegmon. White count has normalized, and patient is no longer confused. -May need to restart vancomycin; discussed with infectious disease/ Tricia Fan , as she was last rounding on the patient when vancomycin was stopped Jaskaran Summers MD (2) Common bile duct (CBD) obstruction Status: Acute Problem Text: 06/03 - Meropenum D4, Vanco was discontinued for unknown reason. D3 meropenem/D17 vanco 06/02/2016: blood culture negative. 06/01/2016: blood cxs pending. Will eval CT abd/pelvis today for further evaluation d/t recent confusion and pain. 05/31/16 BCX x 2 P 05/31/16 ABD WCX P 05/31/2016: RUQ pain c WBC to 17.2-STAT RUQ US s obvious ductal dilatation; therefore, favor transient bacteremia-meropenem started 05/30/16- Dr Centeno removed cholecystectomy tube 05/07/16 percutaneous transhepatic cholangiogram, distal CBD stricture biopsy ( benign by pathology), CBD stone removal and internal-external biliary drainage catheter placement by Dr. Centeno 05/06/16 ERCP unable to perform cholangiogram-Reindl to ask IR for CBD stent placement . 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 No ENRIQUEZ. Vancomycin stopped due to gram negative cocci on wound cx. 06/01/2016: Now with ENRIQUEZ and confusion that is worsening. Dr. Kumari notified will see patient later today. Advised LP to be completed. 05/28 stable MS, afebrile, WBC-per ID can hold on repeat LP if not needing BUSINESS LINE CONTROLLER shunt-per Kenyetta favor hold repeat [employer] LINE CONTROLLER 05/20 repeat LP CSF CX S. epi-although took 6D to grow out! 05/26 CT head stable 05/27/2016: WBC 6.7, Tm 99.7-given stable, but now repeat CSF from 05/20 +, will need to repeat-d/w Tashia 05/24/2016: See notes below for plan. No changes. 05/23 - Had LP on 05/[address] Kumari. His note advises to repeat spinal tap in several days or sooner if needed to drain up to 30 ml of CSF, as the the LP from 05/[address] just [address] Lao from [facility] is following and advises continuing the Vanco until 05/27. Will transfer her out of ICU to PCU. possibly able to treat c serial therapeutic LP +/- acetazolamide 05/20/16 Tm 99, WBC 7.5, LP took off 12 cc-patient tolerated c mild post-spinal frontal ENRIQUEZ 05/17/16 + S. epidermidis by shunt tap sens to vanco 05/10: The [employer] CONTRO[employer]ER shunt was externalized by neurosurgery tonight because of evidence of infection, then 05/17/[address] Kumari. 05/08 normal shunt study, neurosurgery suggests shunt likely colonized, and hopes to treat with abx; prefers LP and culture to directly culturing from shunt 05/06/16 MRI brain s/c mild hydro s change, no obvious infection (meningitis, shuntitis) (4) Incisional hernia Status: Acute Problem Text: Nausea resolved. waiting for re-read of CT scan. ? new onset. Asked for re-read of Ct scan completed 05/01 to see if this is a new finding. May be contributing factor to nausea. (5) Metabolic encephalopathy Status: Acute Response to Treatment: Stable Problem Text: 06/03 - Improved. Dr Kumari following. 06/01/2016: Now with ENRIQUEZ and confusion that is worsening. Dr. Kumari notified will see patient later today. Advised LP to be completed. 05/31/2016: feeling generally poor with elevated WBC. Re-eval abdominal U S d/t c /o pain. Consider repeat LP if US negative. 05/29/2016: had some confusion last night. Nursing to report to Neurosurgery for repeat evaluation. 05/27/2016: unchanged. 05/24/2016: unchanged MS. Mildly vague at times yet A/o x 3 05/23 - Pt's mental status seem stable today. She knew she was in [facility]. She knew the year and the president. 05/22 - Pt's mental status seem stable today. She knew she was in [facility]. She knew the year and the president. Nursing is concerned that the patient has been less stable with ambulation and requiring the walker more. Will re-consult PT. 05/21 - Mental status stable. 05/20 - Mental status stable. /4 - mental status stable 2/3 - mental status improved - up in chair, alert a little vague but at baseline 2/2 - Mental status has improved with externalization of shunt and tx of infection favor secondary to BUSINESS [employer] CONTRO[employer]ER shunt infection (6) COPD (chronic obstructive pulmonary disease) Status: Chronic Response to Treatment: Stable Problem Text: Respiratory status stable. (7) Hypertension Status: Chronic Problem Text: 05/20 - Amlodipine was decreased to 5 mg daily. (8) Cerebral aneurysm Permanent Comment: s/p ICA/basilar coiling, s/p BUSINESS LINE CONTROLLER shunt 2014 Last Edited By: Yoseph Medina MD on May 10, 2016 13:40 Status: Chronic Response to Treatment: Stable Problem Text: S/P ICA/Basilar coiling and BUSINESS LINE CONTROLLER shunt 2014. (9) S/P splenectomy Status: Chronic Response to Treatment: Stable Problem Text: obviously higher sepsis risk Plan/VTE VTE Prophylaxis Ordered?: Yes (Lovenox) Plan Therapy: PT, OT Attending note: Saw and evaluated the patient, and agree with plan of care as discussed and documented by Rip Dubois with exceptions where indicated. Neurosurgery previously discussed spinal tap to evaluate for altered mental status, with recommendations for Gram stain, culture, sugar, protein, beta amyloid 42, total Tau, phosphorylated Tau, however patient's mental status cleared, and this was apparently canceled by Dr. Vasquez. Unclear why vancomycin was stopped, as there is no indication that she has had culture of hepatic phlegmon/abscess. Will discuss with Tricia Fan. Jaskaran Summers MD VS, I&O, 24H, [facility] Vital Signs/I&O Vital Signs Date Time Temp Pulse Resp B/P Pulse Ox O2 Delivery O2 Flow Rate FiO2 06/03/16 09:21 89 140/66 06/03/16 06:00 97.1 18 94 06/02/16 20:00 Room Air I&O- Last 24 Hours up to 6 AM 06/03/16 06:00 Intake Total 1040 ml Output Total 700 ml Balance 340 ml Laboratory Data 24H LABS Laboratory Tests 2 06/03/16 05:32: Blood Urea Nitrogen 13, Creatinine 0.76, Sodium Level 141#, Potassium Level 4.0 , Chloride Level 106, Carbon Dioxide Level 26, Calcium Level 9.4, Aspartate Amino Transf (AST/SGOT) 8L, Alanine Aminotransferase (ALT/SGPT) 13, Alkaline Phosphatase 75, Total Bilirubin 0.2, Total Protein 6.9, Albumin 2.8L, Albumin/ Globulin Ratio 0.68L, Anion Gap 9, White Blood Count 7.7, Red Blood Count 3.82L , Hemoglobin 11.8L, Hematocrit 35.7L, Mean Corpuscular Volume 93.5, Mean Corpuscular Hemoglobin 30.8, Mean Corpuscular Hemoglobin Concent 33.0, Red Cell Distribution Width 13.8, Platelet Count 382, Neutrophils (%) (Auto) 65.0, Lymphocytes (%) (Auto) 20.5L, Monocytes (%) (Auto) 7.5H, Eosinophils (%) (Auto) 4.7H, Basophils (%) (Auto) 0.5, Neutrophils # (Auto) 5.0, Lymphocytes # (Auto) 1.7, Monocytes # (Auto) 0.6, Eosinophils # (Auto) 0.4, Basophils # (Auto) 0.0, C -Reactive Protein, Quantitative 9.44H, Erythrocyte Sedimentation Rate 65H, Glomerular Filtration Rate > 60.0, Large Unclassified Cells # 0.1, Large Unclassified Cells % 1.9 CBC/BMP Laboratory Tests 06/03/16 05:32 Calcium Level 9.4, Aspartate Amino Transf (AST/SGOT) 8 L, Alanine Aminotransferase (ALT/SGPT) 13, Alkaline Phosphatase 75, Total Bilirubin 0.2, Total Protein 6.9, Albumin 2.8 L, Red Blood Count 3.82 L, Mean Corpuscular Volume 93.5, Mean Corpuscular Hemoglobin 30.8, Mean Corpuscular Hemoglobin Concent 33.0, Red Cell Distribution Width 13.8, Neutrophils (%) (Auto) 65.0, Lymphocytes (%) (Auto) 20.5 L, Monocytes (%) (Auto) 7.5 H, Eosinophils (%) (Auto ) 4.7 H, Basophils (%) (Auto) 0.5, Neutrophils # (Auto) 5.0, Lymphocytes # (Auto ) 1.7, Monocytes # (Auto) 0.6, Eosinophils # (Auto) 0.4, Basophils # (Auto) 0.0 Microbiology Microbiology 05/31/16 Blood Culture - Preliminary, Resulted No Growth after 72 hours. All specime... 05/31/16 Blood Culture - Preliminary, Resulted No Growth after 72 hours. All specime... 05/31/16 Gram Stain - Final, Complete 05/31/16 Wound Culture - Final, Complete Citrobacter Freundii Klebsiella Pneumoniae Escherichia Hermannii Rip Dubois Jun 03, 2016 11:29 JASKARAN SUMMERS MD Jun 04, 2016 07:42
[2016-06-03] MEDS: traMADol 50 MG TAB PO PRN (12:36)
[2016-06-03 14:00] VITALS: BP 111/57
[2016-06-03] MEDS: SERTRALINE HCL 50 MG TAB PO SCH (20:20)
[2016-06-03] MEDS: NICOTINE 7 MG/24 HR TRANSDERMAL TD SCH (20:20)
[2016-06-03 22:00] VITALS: BP 125/59
[2016-06-04] MEDS: traMADol 50 MG TAB PO PRN (02:24)
[2016-06-04] MEDS: MEROPENEM INJ 1 GM in D5W MINI-BAG PLUS 100 ML IV SCH ×3 (04:08→20:27)
[2016-06-04 06:00] VITALS: BP 119/64
[2016-06-04 06:00] LABS: BASO # 0.1 K/mm3 (0.0-0.2); BASO % 0.7 % (0.0-1.0); EOS # 0.3 K/mm3 (0.0-0.50); EOS % 3.4 % (0.0-3.0); LARGE UNSTAINED CELL # 0.2 K/mm3 (0.0-0.4); LARGE UNSTAINED CELL % 1.9 % (0.0-4.0); LYMPH # 2.3 K/mm3 (1.5-4.5); LYMPH % 23.6 % (24.0-44.0); MEAN CORPUSCULAR HEMOGLOBIN 30.7 pg (27.0-33.0); MEAN CORPUSCULAR HGB CONC 33.4 g/dl (32.0-36.5); MEAN CORPUSCULAR VOLUME 92.1 fl (80.0-96.0); MONO # 0.7 K/mm3 (0.0-0.8); MONO % 7.5 % (0.0-5.0); NEUTROPHILS # 5.8 K/mm3 (1.8-7.7); PLATELET COUNT, AUTOMATED 375 k/mm3 (150-450); RED CELL DISTRIBUTION WIDTH 13.8 % (11.5-14.5); WHITE BLOOD COUNT 9.2 K/mm3 (4.0-10.0)
[2016-06-04 06:25] LABS: ALBUMIN 2.9 GM/DL (3.2-5.2); ALBUMIN/GLOBULIN RATIO 0.69 (1.00-1.93); ALKALINE PHOSPHATASE 76 U/L (45-117); ALT/SGPT 11 U/L (12-78); ANION GAP 10 MEQ/L (8-16); AST/SGOT 11 U/L (15-37); BILIRUBIN,TOTAL 0.2 MG/DL (0.2-1.0); BLOOD UREA NITROGEN 10 MG/DL (7-18); CALCIUM LEVEL 9.7 MG/DL (8.8-10.2); CARBON DIOXIDE LEVEL 25 MEQ/L (21-32); CHLORIDE LEVEL 102 MEQ/L (98-107); CREATININE FOR GFR 0.71 MG/DL (0.55-1.02); GLOMERULAR FILTRATION RATE > 60.0 (>39); GLUCOSE, FASTING 105 MG/DL (83-110); POTASSIUM SERUM 4.2 MEQ/L (3.5-5.1); SODIUM LEVEL 137 MEQ/L (136-145); TOTAL PROTEIN 7.1 GM/DL (6.4-8.2)
[2016-06-04] MEDS: ADVAIR DISKUS 250/50 INH PWD INH SCH ×2 (07:18→19:25)
[2016-06-04] MEDS: POTASSIUM CHLORIDE 10 MEQ SR TABLET PO SCH ×2 (08:36→20:28)
[2016-06-04] MEDS: ONDANSETRON 4MG/2ML VIAL (J2405) IV PRN (08:36)
[2016-06-04] MEDS: ENOXAPARIN 40 MG/0.4 ML SYRINGE (J1650) SC SCH (08:36)
[2016-06-04] MEDS: OMEPRAZOLE 20 MG CAP PO SCH (08:36)
[2016-06-04] MEDS: NYSTATIN CREAM 15 GM TOP SCH ×2 (08:37→20:28)
[2016-06-04] MEDS: amLODIPine 5 MG TAB PO SCH (08:37)
--- NOTE | 2016-06-04 10:45 | IPNPDOC ---
Subjective Date Seen The patient was seen on 06/04/16. Subjective Chief Complaint/HPI The patient is a 70-year-old female admitted with a reason for visit of Metabolic Encephalopathy. Events since last encounter Pt states about the same. She had a headache earlier that has resolved. Nursing notes no BM in 4 days. Pt denies current abd pain. Denies CP, SOB. Constitutional: Denies: Chills, Fever Pulmonary: Denies: Dyspnea Cardiovascular: Denies: Chest Pain Gastrointestinal: Denies: Abdominal Pain, Nausea, Vomiting Objective Physical Examination General Exam: Positive: Alert, No Acute Distress Eye Exam: Positive: PERRLA, Negative: Sclera icteric ENT Exam: Positive: Mucous membr. moist/pink, Pharynx Normal Neck Exam: Positive: Supple, Negative: JVD, thyromegaly Chest Exam: Positive: Clear to auscultation, Diminished Heart Exam: Positive: Normal S1, Normal S2, Rate Normal, Regular Rhythm, Negative: Murmurs, Rubs Abdomen Exam: Positive: Hernia (midline incisional hernia, soft, non-tender), Normal bowel sounds, Other, Soft, Negative: Hepatospenomegaly, Tenderness Extremity Exam: Positive: Normal pulses, Negative: Clubbing, Cyanosis, Edema Skin Exam: Positive: Nl turgor and temperature, Negative: Breakdown Neuro Exam: Positive: Other (alert to self and place. disoriented to time: 1970 , knows Obama is no longer President and she wasn't happy about new president but could not name the new president) Psych Exam: Positive: Other (vague reponses, oritned to place and person. Disoriented to time: 1974) Assessment /Plan Problems (1) Hepatic abscess Status: Acute Problem Text: 06/04 - Dr Summers discussed with Dr Lao. Dr Lao feels the Staph epi has been treated. Vanco was D/C'ed. On Meropenem. Wound cx: CITROBACTER FREUNDII, KLEBSIELLA PNEUMONIAE, ESCHERICHIA HERMANNII 06/03 - Hepatic abscess/phlegmon visualized on CT abdomen and pelvis 06/01/16. At the time of the CT, the phlegmon did not have a drainable collection. Infectious disease had recommended vancomycin and meropenem on 05/31/16, although this was stopped due to right upper quadrant cultures coming back with gram-negative organisms. However, there his been no drainage culture of the phlegmon. White count has normalized, and patient is no longer confused. -May need to restart vancomycin; discussed with infectious disease/ Tricia Fan , as she was last rounding on the patient when vancomycin was stopped Jaskaran Summers MD (2) Common bile duct (CBD) obstruction Status: Acute Problem Text: 06/04 - Meropenem D5 06/03 - Meropenem D4, Vanco was discontinued for unknown reason. D3 meropenem/D17 vanco 06/02/2016: blood culture negative. 06/01/2016: blood cxs pending. Will eval CT abd/pelvis today for further evaluation d/t recent confusion and pain. 05/31/16 BCX x 2 P 05/31/16 ABD WCX P 05/31/2016: RUQ pain c WBC to 17.2-STAT RUQ US s obvious ductal dilatation; therefore, favor transient bacteremia-meropenem started 05/30/16- Dr Centeno removed cholecystectomy tube 05/07/16 percutaneous transhepatic cholangiogram, distal CBD stricture biopsy ( benign by pathology), CBD stone removal and internal-external biliary drainage catheter placement by Dr. Centeno 05/06/16 ERCP unable to perform cholangiogram-Reindl to ask IR for CBD stent placement . (3) Infection of SENIOR [employer]ENEFITS SPECIALIST (ventriculoperitoneal) shunt Status: Acute Problem Text: 06/04 - Dr Summers discussed with Dr Lao. Dr Lao feels the Staph epi has been treated. 06/03 - Vanco was discontinued due to gram-negative organisms on right upper quadrant vanco D16 06/02/2016: mentation slightly improved. No ENRIQUEZ. Vancomycin stopped due to gram negative cocci on wound cx. 06/01/2016: Now with ENRIQUEZ and confusion that is worsening. Dr. Kumari notified will see patient later today. Advised LP to be completed. 05/28 stable MS, afebrile, WBC-per ID can hold on repeat LP if not needing SENIOR BENEFITS SPECIALIST shunt-per Kenyetta favor hold repeat S[employer]ENEFITS SPECIALIST 05/20 repeat LP CSF CX S. epi-although took 6D to grow out! 05/26 CT head stable 05/27/2016: WBC 6.7, Tm 99.7-given stable, but now repeat CSF from 05/20 +, will need to repeat-d/w Tashia 05/24/2016: See notes below for plan. No changes. 05/23 - Had LP on 05/[address] Kumari. His note advises to repeat spinal tap in several days or sooner if needed to drain up to 30 ml of CSF, as the the LP from 05/20 just [address] Lao from [place] is following and advises continuing the Vanco until 05/27. Will transfer her out of ICU to PCU. possibly able to treat c serial therapeutic LP +/- acetazolamide 05/20/16 Tm 99, WBC 7.5, LP took off 12 cc-patient tolerated c mild post-spinal frontal ENRIQUEZ 05/17/16 + S. epidermidis by shunt tap sens to vanco 05/10: The S[employer]ENEFITS SPECIALIST shunt was externalized by neurosurgery tonight because of evidence of infection, then 05/17/[address] Kumari. 05/08 normal shunt study, neurosurgery suggests shunt likely colonized, and hopes to treat with abx; prefers LP and culture to directly culturing from shunt 05/06/16 MRI brain s/c mild hydro s change, no obvious infection (meningitis, shuntitis) (4) Incisional hernia Status: Chronic Problem Text: Questionable incisional hernia. No current symptoms. (5) Metabolic encephalopathy Status: Resolved Response to Treatment: Stable Problem Text: 06/04 - Improved. Dr Kumari following. 06/03 - Improved. Dr Kumari following. 06/01/2016: Now with ENRIQUEZ and confusion that is worsening. Dr. Kumari notified will see patient later today. Advised LP to be completed. 05/31/2016: feeling generally poor with elevated WBC. Re-eval abdominal U S d/t c /o pain. Consider repeat LP if US negative. 05/29/2016: had some confusion last night. Nursing to report to Neurosurgery for repeat evaluation. 05/27/2016: unchanged. 05/24/2016: unchanged MS. Mildly vague at times yet A/o x 3 05/23 - Pt's mental status seem stable today. She knew she was in [facility]. She knew the year and the president. 05/22 - Pt's mental status seem stable today. She knew she was in [facility]. She knew the year and the president. Nursing is concerned that the patient has been less stable with ambulation and requiring the walker more. Will re-consult PT. 2/7 - Mental status stable. 2/6 - Mental status stable. 2/4 - mental status stable 2/3 - mental status improved - up in chair, alert a little vague but at baseline 2/2 - Mental status has improved with externalization of shunt and tx of infection favor secondary to SENIOR BENEFITS SPECIALIST shunt infection (6) COPD (chronic obstructive pulmonary disease) Status: Chronic Response to Treatment: Stable Problem Text: Respiratory status stable. (7) Hypertension Status: Chronic Problem Text: 05/20 - Amlodipine was decreased to 5 mg daily. (8) Cerebral aneurysm Permanent Comment: s/p ICA/basilar coiling, s/p SENIOR BENEFITS SPECIALIST shunt 2014 Last Edited By: Yoseph Medina MD on May 10, 2016 13:40 Status: Chronic Response to Treatment: Stable Problem Text: S/P ICA/Basilar coiling and SENIOR BENEFITS SPECIALIST shunt 2014. (9) S/P splenectomy Status: Chronic Response to Treatment: Stable Problem Text: obviously higher sepsis risk Plan/VTE VTE Prophylaxis Ordered?: Yes (Lovenox) Plan Therapy: PT, OT Attending attestation: I saw and evaluated the patient, and I agree with the plan of care as discussed and documented by Fabrice Dubois. Jaskaran Summers MD VS, I&O, 24H, [facility] Vital Signs/I&O Vital Signs Date Time Temp Pulse Resp B/P Pulse Ox O2 Delivery O2 Flow Rate FiO2 06/04/16 08:37 77 124/62 06/04/16 06:00 97.5 20 94 06/04/16 02:54 Room Air I&O- Last 24 Hours up to 6 AM 06/04/16 06:00 Intake Total 1800 ml Output Total 1700 ml Balance 100 ml Laboratory Data 24H LABS Laboratory Tests 2 06/04/16 05:31: Blood Urea Nitrogen 10, Creatinine 0.71, Sodium Level 137, Potassium Level 4.2, Chloride Level 102, Carbon Dioxide Level 25, Calcium Level 9.7, Aspartate Amino Transf (AST/SGOT) 11L, Alanine Aminotransferase (ALT/SGPT) 11L, Alkaline Phosphatase 76, Total Bilirubin 0.2, Total Protein 7.1, Albumin 2.9L, Albumin/ Globulin Ratio 0.69L, Anion Gap 10, White Blood Count 9.2, Red Blood Count 3.78L , Hemoglobin 11.6L, Hematocrit 34.8L, Mean Corpuscular Volume 92.1, Mean Corpuscular Hemoglobin 30.7, Mean Corpuscular Hemoglobin Concent 33.4, Red Cell Distribution Width 13.8, Platelet Count 375, Neutrophils (%) (Auto) 63.0, Lymphocytes (%) (Auto) 23.6L, Monocytes (%) (Auto) 7.5H, Eosinophils (%) (Auto) 3.4H, Basophils (%) (Auto) 0.7, Neutrophils # (Auto) 5.8, Lymphocytes # (Auto) 2.3, Monocytes # (Auto) 0.7, Eosinophils # (Auto) 0.3, Basophils # (Auto) 0.1, Glomerular Filtration Rate > 60.0, Large Unclassified Cells # 0.2, Large Unclassified Cells % 1.9 CBC/BMP Laboratory Tests 06/04/16 05:31 Calcium Level 9.7, Aspartate Amino Transf (AST/SGOT) 11 L, Alanine Aminotransferase (ALT/SGPT) 11 L, Alkaline Phosphatase 76, Total Bilirubin 0.2, Total Protein 7.1, Albumin 2.9 L, Red Blood Count 3.78 L, Mean Corpuscular Volume 92.1, Mean Corpuscular Hemoglobin 30.7, Mean Corpuscular Hemoglobin Concent 33.4, Red Cell Distribution Width 13.8, Neutrophils (%) (Auto) 63.0, Lymphocytes (%) (Auto) 23.6 L, Monocytes (%) (Auto) 7.5 H, Eosinophils (%) (Auto ) 3.4 H, Basophils (%) (Auto) 0.7, Neutrophils # (Auto) 5.8, Lymphocytes # (Auto ) 2.3, Monocytes # (Auto) 0.7, Eosinophils # (Auto) 0.3, Basophils # (Auto) 0.1 Microbiology Microbiology 05/31/16 Blood Culture - Preliminary, Resulted No Growth after 72 hours. All specime... 05/31/16 Blood Culture - Preliminary, Resulted No Growth after 72 hours. All specime... 05/31/16 Gram Stain - Final, Complete 05/31/16 Wound Culture - Final, Complete Citrobacter Freundii Klebsiella Pneumoniae Escherichia Hermannii Rip Dubois Jun 04, 2016 10:45 JASKARAN SUMMERS MD Jun 09, 2016 12:08
[2016-06-04 13:50] VITALS: BP 132/69
[2016-06-04] MEDS: NICOTINE 7 MG/24 HR TRANSDERMAL TD SCH (20:28)
[2016-06-04] MEDS: SERTRALINE HCL 50 MG TAB PO SCH (20:28)
[2016-06-04 22:00] VITALS: BP 134/63
[2016-06-05] MEDS: MEROPENEM INJ 1 GM in D5W MINI-BAG PLUS 100 ML IV SCH ×3 (04:07→20:38)
[2016-06-05 06:00] VITALS: BP 109/58
[2016-06-05 06:05] LABS: BASO # 0.1 K/mm3 (0.0-0.2); BASO % 0.9 % (0.0-1.0); EOS # 0.3 K/mm3 (0.0-0.50); EOS % 3.6 % (0.0-3.0); LARGE UNSTAINED CELL # 0.2 K/mm3 (0.0-0.4); LYMPH # 2.5 K/mm3 (1.5-4.5); LYMPH % 31.8 % (24.0-44.0); MEAN CORPUSCULAR HEMOGLOBIN 30.4 pg (27.0-33.0); MEAN CORPUSCULAR HGB CONC 32.9 g/dl (32.0-36.5); MEAN CORPUSCULAR VOLUME 92.3 fl (80.0-96.0); MONO # 0.6 K/mm3 (0.0-0.8); MONO % 8.7 % (0.0-5.0); NEUTROPHILS # 3.8 K/mm3 (1.8-7.7); PLATELET COUNT, AUTOMATED 441 k/mm3 (150-450); RED CELL DISTRIBUTION WIDTH 13.7 % (11.5-14.5); WHITE BLOOD COUNT 7.3 K/mm3 (4.0-10.0)
[2016-06-05 06:32] LABS: ALBUMIN 2.9 GM/DL (3.2-5.2); ALBUMIN/GLOBULIN RATIO 0.69 (1.00-1.93); ALKALINE PHOSPHATASE 70 U/L (45-117); ALT/SGPT 15 U/L (12-78); ANION GAP 6 MEQ/L (8-16); AST/SGOT 15 U/L (15-37); BILIRUBIN,TOTAL 0.2 MG/DL (0.2-1.0); BLOOD UREA NITROGEN 12 MG/DL (7-18); CALCIUM LEVEL 9.4 MG/DL (8.8-10.2); CARBON DIOXIDE LEVEL 29 MEQ/L (21-32); CHLORIDE LEVEL 103 MEQ/L (98-107); CREATININE FOR GFR 0.71 MG/DL (0.55-1.02); GLOMERULAR FILTRATION RATE > 60.0 (>39); GLUCOSE, FASTING 93 MG/DL (83-110); POTASSIUM SERUM 4.2 MEQ/L (3.5-5.1); SODIUM LEVEL 138 MEQ/L (136-145); TOTAL PROTEIN 7.1 GM/DL (6.4-8.2)
[2016-06-05] MEDS: ACETAMINOPHEN TAB 650MG DOSE (2X325MG) PO PRN ×2 (06:38→17:41)
[2016-06-05] MEDS: ADVAIR DISKUS 250/50 INH PWD INH SCH ×2 (07:31→21:04)
[2016-06-05] MEDS: POTASSIUM CHLORIDE 10 MEQ SR TABLET PO SCH ×2 (08:45→20:38)
[2016-06-05] MEDS: amLODIPine 5 MG TAB PO SCH (08:45)
[2016-06-05] MEDS: OMEPRAZOLE 20 MG CAP PO SCH (08:45)
[2016-06-05] MEDS: NYSTATIN CREAM 15 GM TOP SCH ×2 (08:46→20:38)
--- NOTE | 2016-06-05 11:12 | IPNPDOC ---
Subjective Date Seen The patient was seen on 06/05/16. Subjective Chief Complaint/HPI The patient is a 70-year-old female admitted with a reason for visit of Metabolic Encephalopathy. Events since last encounter Pt apparently had a fall yesterday. She denied any injury. She denied hitting her head. Denies any headaches. Pt denies any other new issues. Still with some abd discomfort which is unchanged. Denies CP, SOB. Constitutional: Denies: Chills, Fever Pulmonary: Denies: Dyspnea Cardiovascular: Denies: Chest Pain Gastrointestinal: Reports: Abdominal Pain, Denies: Nausea, Vomiting Objective Physical Examination General Exam: Positive: Alert, No Acute Distress Eye Exam: Positive: PERRLA, Negative: Sclera icteric ENT Exam: Positive: Mucous membr. moist/pink, Pharynx Normal Neck Exam: Positive: Supple, Negative: JVD, thyromegaly Chest Exam: Positive: Clear to auscultation, Diminished Heart Exam: Positive: Normal S1, Normal S2, Rate Normal, Regular Rhythm, Negative: Murmurs, Rubs Abdomen Exam: Positive: Hernia (midline incisional hernia, soft, non-tender), Normal bowel sounds, Other, Soft, Negative: Hepatospenomegaly, Tenderness Extremity Exam: Positive: Normal pulses, Negative: Clubbing, Cyanosis, Edema Skin Exam: Positive: Nl turgor and temperature, Negative: Breakdown Psych Exam: Positive: Other (alert to self and place. disoriented to time: 2006 , knows the president) Assessment /Plan Problems (1) Hepatic abscess Status: Acute Problem Text: 06/05 - On Meropenem. Wound cx: CITROBACTER FREUNDII, KLEBSIELLA PNEUMONIAE, ESCHERICHIA HERMANNII 06/04 - Dr Summers discussed with Dr Lao. Dr Lao feels the Staph epi has been treated. Vanco was D/C'ed. On Meropenem. Wound cx: CITROBACTER FREUNDII, KLEBSIELLA PNEUMONIAE, ESCHERICHIA HERMANNII 06/03 - Hepatic abscess/phlegmon visualized on CT abdomen and pelvis 06/01/16. At the time of the CT, the phlegmon did not have a drainable collection. Infectious disease had recommended vancomycin and meropenem on 05/31/16, although this was stopped due to right upper quadrant cultures coming back with gram-negative organisms. However, there his been no drainage culture of the phlegmon. White count has normalized, and patient is no longer confused. -May need to restart vancomycin; discussed with infectious disease/ Tricia Fan , as she was last rounding on the patient when vancomycin was stopped Jaskaran Summers MD (2) Common bile duct (CBD) obstruction Status: Acute Problem Text: 06/05 - Meropenem D6 06/04 - Meropenem D5 06/03 - Meropenem D4, Vanco was discontinued for unknown reason. D3 meropenem/D17 vanco 06/02/2016: blood culture negative. 06/01/2016: blood cxs pending. Will eval CT abd/pelvis today for further evaluation d/t recent confusion and pain. 05/31/16 BCX x 2 P 05/31/16 ABD WCX P 05/31/2016: RUQ pain c WBC to 17.2-STAT RUQ US s obvious ductal dilatation; therefore, favor transient bacteremia-meropenem started 05/30/16- Dr Centeno removed cholecystectomy tube 05/07/16 percutaneous transhepatic cholangiogram, distal CBD stricture biopsy ( benign by pathology), CBD stone removal and internal-external biliary drainage catheter placement by Dr. Centeno 05/06/16 ERCP unable to perform cholangiogram-Reindl to ask IR for CBD stent placement . (3) Infection of LOAN EXPEDITOR (ventriculoperitoneal) shunt Status: Acute Problem Text: 06/05 - Dr Kumari has planned a new LP for today. Dr Summers discussed with Dr Lao. Dr Lao feels the Staph epi has been treated. 06/04 - Dr Summers discussed with Dr Lao. Dr Lao feels the Staph epi has been treated. 06/03 - Vanco was discontinued due to gram-negative organisms on right upper quadrant vanco D16 06/02/2016: mentation slightly improved. No ENRIQUEZ. Vancomycin stopped due to gram negative cocci on wound cx. 06/01/2016: Now with ENRIQUEZ and confusion that is worsening. Dr. Kumari notified will see patient later today. Advised LP to be completed. 05/28 stable MS, afebrile, WBC-per ID can hold on repeat LP if not needing LOAN EXPEDITOR shunt-per Kenyetta favor hold repeat LOAN EXPEDITOR 05/20 repeat LP CSF CX S. epi-although took 6D to grow out! 05/26 CT head stable 05/27/2016: WBC 6.7, Tm 99.7-given stable, but now repeat CSF from 05/20 +, will need to repeat-d/radha Lao 05/24/2016: See notes below for plan. No changes. 05/23 - Had LP on 05/[address] Kumari. His note advises to repeat spinal tap in several days or sooner if needed to drain up to 30 ml of CSF, as the the LP from 05/20 just [address] Lao from [place] is following and advises continuing the Vanco until 05/27. Will transfer her out of ICU to PCU. possibly able to treat c serial therapeutic LP +/- acetazolamide 05/20/16 Tm 99, WBC 7.5, LP took off 12 cc-patient tolerated c mild post-spinal frontal ENRIQUEZ 05/17/16 + S. epidermidis by shunt tap sens to vanco 05/10: The LOAN EXPEDITOR shunt was externalized by neurosurgery tonight because of evidence of infection, then 05/17/[address] Kumari. 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 No current symptoms. (5) Metabolic encephalopathy Status: Acute Response to Treatment: Stable Problem Text: 06/05 - Improved. Dr Kumari following and plans LP for today. 06/04 - Improved. Dr Kumari following. 06/03 - Improved. Dr Kumari following. 06/01/2016: Now with ENRIQUEZ and confusion that is worsening. Dr. Kumari notified will see patient later today. Advised LP to be completed. 05/31/2016: feeling generally poor with elevated WBC. Re-eval abdominal U S d/t c /o pain. Consider repeat LP if US negative. 05/29/2016: had some confusion last night. Nursing to report to Neurosurgery for repeat evaluation. 05/27/2016: unchanged. 05/24/2016: unchanged MS. Mildly vague at times yet A/o x 3 05/23 - Pt's mental status seem stable today. She knew she was in [facility]. She knew the year and the president. 05/22 - Pt's mental status seem stable today. She knew she was in [facility]. She knew the year and the president. Nursing is concerned that the patient has been less stable with ambulation and requiring the walker more. Will re-consult PT. 05/21 - Mental status stable. 05/20 - Mental status stable. 2 - mental status stable 2/3 - mental status improved - up in chair, alert a little vague but at baseline 2/2 - Mental status has improved with externalization of shunt and tx of infection favor secondary to LOAN EXPEDITOR shunt infection (6) COPD (chronic obstructive pulmonary disease) Status: Chronic Response to Treatment: Stable Problem Text: Respiratory status stable. (7) Hypertension Status: Chronic Problem Text: 05/20 - Amlodipine was decreased to 5 mg daily. (8) Cerebral aneurysm Permanent Comment: s/p ICA/basilar coiling, s/p LOAN EXPEDITOR shunt 2014 Last Edited By: Yoseph Medina MD on May 10, 2016 13:40 Status: Chronic Response to Treatment: Stable Problem Text: S/P ICA/Basilar coiling and LOAN EXPEDITOR shunt 2014. (9) S/P splenectomy Status: Chronic Response to Treatment: Stable Problem Text: obviously higher sepsis risk Plan/VTE VTE Prophylaxis Ordered?: Yes (Lovenox (06/05/16 held for LP)) Plan Therapy: PT, OT Attending attestation: I saw and evaluated the patient, and I agree with the plan of care as discussed and documented by Fabrice Dubois. Jaskaran Summers MD VS, I&O, 24H, [facility] Vital Signs/I&O Vital Signs Date Time Temp Pulse Resp B/P Pulse Ox O2 Delivery O2 Flow Rate FiO2 06/05/16 08:45 87 131/60 06/05/16 06:00 96.8 18 95 06/04/16 20:27 Room Air I&O- Last 24 Hours up to 6 AM 06/05/16 06:00 Intake Total 940 ml Output Total 750 ml Balance 190 ml Laboratory Data 24H LABS Laboratory Tests 2 06/05/16 05:46: Blood Urea Nitrogen 12, Creatinine 0.71, Sodium Level 138, Potassium Level 4.2, Chloride Level 103, Carbon Dioxide Level 29, Calcium Level 9.4, Aspartate Amino Transf (AST/SGOT) 15, Alanine Aminotransferase (ALT/SGPT) 15, Alkaline Phosphatase 70, Total Bilirubin 0.2, Total Protein 7.1, Albumin 2.9L, Albumin/ Globulin Ratio 0.69L, Anion Gap 6L, White Blood Count 7.3, Red Blood Count 3.89L , Hemoglobin 11.8L, Hematocrit 35.9L, Mean Corpuscular Volume 92.3, Mean Corpuscular Hemoglobin 30.4, Mean Corpuscular Hemoglobin Concent 32.9, Red Cell Distribution Width 13.7, Platelet Count 441, Neutrophils (%) (Auto) 52.0, Lymphocytes (%) (Auto) 31.8, Monocytes (%) (Auto) 8.7H, Eosinophils (%) (Auto) 3.6H, Basophils (%) (Auto) 0.9, Neutrophils # (Auto) 3.8, Lymphocytes # (Auto) 2.5, Monocytes # (Auto) 0.6, Eosinophils # (Auto) 0.3, Basophils # (Auto) 0.1, Glomerular Filtration Rate > 60.0, Large Unclassified Cells # 0.2, Large Unclassified Cells % 3.0 CBC/BMP Laboratory Tests 06/05/16 05:46 Calcium Level 9.4, Aspartate Amino Transf (AST/SGOT) 15, Alanine Aminotransferase (ALT/SGPT) 15, Alkaline Phosphatase 70, Total Bilirubin 0.2, Total Protein 7.1, Albumin 2.9 L, Red Blood Count 3.89 L, Mean Corpuscular Volume 92.3, Mean Corpuscular Hemoglobin 30.4, Mean Corpuscular Hemoglobin Concent 32.9, Red Cell Distribution Width 13.7, Neutrophils (%) (Auto) 52.0, Lymphocytes (%) (Auto) 31.8, Monocytes (%) (Auto) 8.7 H, Eosinophils (%) (Auto) 3.6 H, Basophils (%) (Auto) 0.9, Neutrophils # (Auto) 3.8, Lymphocytes # (Auto) 2.5, Monocytes # (Auto) 0.6, Eosinophils # (Auto) 0.3, Basophils # (Auto) 0.1 Microbiology Microbiology 05/31/16 Blood Culture - Final, Complete NO GROWTH AFTER 5 DAYS 05/31/16 Blood Culture - Final, Complete NO GROWTH AFTER 5 DAYS 05/31/16 Gram Stain - Final, Complete 05/31/16 Wound Culture - Final, Complete Citrobacter Freundii Klebsiella Pneumoniae Escherichia Hermannii Rip Dubois Jun 05, 2016 11:12 JASKARAN SUMMERS MD Jun 09, 2016 11:01
[2016-06-05 12:45] VITALS: BP 113/62
[2016-06-05 14:00] VITALS: BP 109/72
--- NOTE | 2016-06-05 17:02 | REP ---
Procedure: For guidance for lumbar puncture. History: Metabolic encephalopathy The procedure was performed under the direct supervision of Dr. Mcclure. The risks and benefits of the procedure were explained to the patient and informed consent was obtained. The L3-4 interspace was localized using fluoroscopic guidance. The skin was prepped and draped in a sterile fashion. 1% lidocaine was used as a local anesthetic. Using fluoroscopic guidance a 22-gauge spinal needle was inserted and advanced into the thecal sac. 12 ml of spinal fluid was withdrawn and sent to lab. The the patient tolerated the procedure well and there were no immediate complications. 15 seconds of fluoro time was utilized for this procedure. Reviewed by ZAKI Solitario 06/05/2016 04:42 PSigned by Fritz Mcclure MD 06/05/2016 04:53 P
[2016-06-05 17:09] LABS: RBC CSF AUTO 11 /mm3 (0-0); WBC CSF AUTO 15 /mm3 (0-10)
[2016-06-05 17:11] LABS: APPEARANCE, CSF CLEAR (CLEAR); COLOR, CSF COLORLESS (COLORLESS); CSF DIFF IF INDICATED? YES (NO); CSF TUBE# CELL CNT TUBE 1
[2016-06-05 17:15] LABS: GLUCOSE CSF 62 MG/DL (40-75)
[2016-06-05] MEDS: SERTRALINE HCL 50 MG TAB PO SCH (20:37)
[2016-06-05] MEDS: NICOTINE 7 MG/24 HR TRANSDERMAL TD SCH (20:38)
[2016-06-05 21:02] LABS: CSF DILUENT LOT # 6109
[2016-06-05 22:00] VITALS: BP 112/59
[2016-06-06] MEDS: ACETAMINOPHEN TAB 650MG DOSE (2X325MG) PO PRN (03:19)
[2016-06-06] MEDS: MEROPENEM INJ 1 GM in D5W MINI-BAG PLUS 100 ML IV SCH ×3 (04:03→20:59)
[2016-06-06 05:55] LABS: BASO # 0.1 K/mm3 (0.0-0.2); BASO % 0.8 % (0.0-1.0); EOS # 0.3 K/mm3 (0.0-0.50); EOS % 4.6 % (0.0-3.0); LARGE UNSTAINED CELL # 0.2 K/mm3 (0.0-0.4); LARGE UNSTAINED CELL % 3.1 % (0.0-4.0); LYMPH # 2.3 K/mm3 (1.5-4.5); LYMPH % 29.6 % (24.0-44.0); MEAN CORPUSCULAR HEMOGLOBIN 30.7 pg (27.0-33.0); MEAN CORPUSCULAR HGB CONC 33.2 g/dl (32.0-36.5); MEAN CORPUSCULAR VOLUME 92.6 fl (80.0-96.0); MONO # 0.7 K/mm3 (0.0-0.8); MONO % 10.4 % (0.0-5.0); NEUTROPHILS # 3.7 K/mm3 (1.8-7.7); NEUTROPHILS % 51.5 % (36.0-66.0); PLATELET COUNT, AUTOMATED 440 k/mm3 (150-450); RED CELL DISTRIBUTION WIDTH 13.7 % (11.5-14.5); WHITE BLOOD COUNT 7.1 K/mm3 (4.0-10.0)
[2016-06-06 06:00] VITALS: BP 129/76
[2016-06-06 06:17] LABS: ALBUMIN 2.9 GM/DL (3.2-5.2); ALBUMIN/GLOBULIN RATIO 0.69 (1.00-1.93); ALKALINE PHOSPHATASE 68 U/L (45-117); ALT/SGPT 22 U/L (12-78); ANION GAP 7 MEQ/L (8-16); AST/SGOT 22 U/L (15-37); BILIRUBIN,TOTAL 0.1 MG/DL (0.2-1.0); BLOOD UREA NITROGEN 15 MG/DL (7-18); CALCIUM LEVEL 9.4 MG/DL (8.8-10.2); CARBON DIOXIDE LEVEL 28 MEQ/L (21-32); CHLORIDE LEVEL 104 MEQ/L (98-107); CREATININE FOR GFR 0.71 MG/DL (0.55-1.02); GLOMERULAR FILTRATION RATE > 60.0 (>39); GLUCOSE, FASTING 97 MG/DL (83-110); POTASSIUM SERUM 4.1 MEQ/L (3.5-5.1); SODIUM LEVEL 139 MEQ/L (136-145); TOTAL PROTEIN 7.1 GM/DL (6.4-8.2)
[2016-06-06] MEDS: ADVAIR DISKUS 250/50 INH PWD INH SCH ×2 (08:57→19:39)
--- NOTE | 2016-06-06 09:52 | IPNPDOC ---
Subjective Date Seen The patient was seen on 06/06/16. Subjective Chief Complaint/HPI Pt without new concerns. She is feeling well. Cont to have some RUQ pain, stable, unchanged. General: Denies: Fatigue Constitutional: Denies: Chills, Fever ENT: Denies: Head Aches Pulmonary: Denies: Cough, Dyspnea Cardiovascular: Denies: Chest Pain, Palpitations Gastrointestinal: Denies: Diarrhea, Hematochezia, Melena, Nausea, Vomiting Neurological: Reports: Weakness Psych: Reports: Mood Normal Objective Physical Examination General Exam: Positive: Alert, No Acute Distress Eye Exam: Negative: Sclera icteric ENT Exam: Positive: Mucous membr. moist/pink, Pharynx Normal Neck Exam: Positive: Supple, Negative: JVD, thyromegaly Chest Exam: Positive: Clear to auscultation Heart Exam: Positive: Normal S1, Normal S2, Rate Normal, Regular Rhythm, Negative: Murmurs, Rubs Abdomen Exam: Positive: Hernia (midline incisional hernia, soft, non-tender), Normal bowel sounds, Other, Soft, Negative: Hepatospenomegaly, Tenderness Extremity Exam: Positive: Normal pulses, Negative: Clubbing, Cyanosis, Edema Skin Exam: Positive: Nl turgor and temperature, Negative: Breakdown Psych Exam: Positive: Oriented x 3 Assessment /Plan Problems (1) Hepatic abscess Status: Acute Problem Text: 06/06 - Meropenem D7, for wound culture, results below, all documented as few colonies, LP done yesterday, culture pending 06/05 - On Meropenem. Wound cx: CITROBACTER FREUNDII, KLEBSIELLA PNEUMONIAE, ESCHERICHIA HERMANNII 06/04 - Dr Summers discussed with Dr Lao. Dr Lao feels the Staph epi has been treated. Vanco was D/C'ed. On Meropenem. Wound cx: CITROBACTER FREUNDII, KLEBSIELLA PNEUMONIAE, ESCHERICHIA HERMANNII 06/03 - Hepatic abscess/phlegmon visualized on CT abdomen and pelvis 06/01/16. At the time of the CT, the phlegmon did not have a drainable collection. Infectious disease had recommended vancomycin and meropenem on 05/31/16, although this was stopped due to right upper quadrant cultures coming back with gram-negative organisms. However, there his been no drainage culture of the phlegmon. White count has normalized, and patient is no longer confused. -May need to restart vancomycin; discussed with infectious disease/ Tricia Fan , as she was last rounding on the patient when vancomycin was stopped Cresencio Summers MD (2) Common bile duct (CBD) obstruction Status: Acute Problem Text: 06/05 - Meropenem D6 06/04 - Meropenem D5 06/03 - Meropenem D4, Vanco was discontinued for unknown reason. D3 meropenem/D17 vanco 06/02/2016: blood culture negative. 06/01/2016: blood cxs pending. Will eval CT abd/pelvis today for further evaluation d/t recent confusion and pain. 05/31/16 BCX x 2 P 05/31/16 ABD WCX P 05/31/2016: RUQ pain c WBC to 17.2-STAT RUQ US s obvious ductal dilatation; therefore, favor transient bacteremia-meropenem started 05/30/16- Dr Centeno removed cholecystectomy tube 05/07/16 percutaneous transhepatic cholangiogram, distal CBD stricture biopsy ( benign by pathology), CBD stone removal and internal-external biliary drainage catheter placement by Dr. Centeno 05/06/16 ERCP unable to perform cholangiogram-Reindl to ask IR for CBD stent placement . (3) Infection of AREA FORESTER (ventriculoperitoneal) shunt Status: Acute Problem Text: 06/05 - Dr Kumari has planned a new LP for today. Dr Summers discussed with Dr Lao. Dr Loa feels the Staph epi has been treated. 06/04 - Dr Summers discussed with Dr Lao. Dr Lao feels the Staph epi has been treated. 06/03 - Vanco was discontinued due to gram-negative organisms on right upper quadrant vanco D16 06/02/2016: mentation slightly improved. No ENRIQUEZ. Vancomycin stopped due to gram negative cocci on wound cx. 06/01/2016: Now with ENRIQUEZ and confusion that is worsening. Dr. Kumari notified will see patient later today. Advised LP to be completed. 05/28 stable MS, afebrile, WBC-per ID can hold on repeat LP if not needing AREA FORESTER shunt-per Kenyetta favor hold repeat AREA FORESTER 05/20 repeat LP CSF CX S. epi-although took 6D to grow out! 05/26 CT head stable 05/27/2016: WBC 6.7, Tm 99.7-given stable, but now repeat CSF from 05/20 +, will need to repeat-d/w Tashia 05/24/2016: See notes below for plan. No changes. 05/23 - Had LP on 05/[address] Kumari. His note advises to repeat spinal tap in several days or sooner if needed to drain up to 30 ml of CSF, as the the LP from 05/20 just [address] Lao from [place] is following and advises continuing the Vanco until 05/27. Will transfer her out of ICU to PCU. possibly able to treat c serial therapeutic LP +/- acetazolamide 05/20/16 Tm 99, WBC 7.5, LP took off 12 cc-patient tolerated c mild post-spinal frontal ENRIQUEZ 05/17/16 + S. epidermidis by shunt tap sens to vanco 05/10: The AREA FORESTER shunt was externalized by neurosurgery tonight because of evidence of infection, then 05/17/[address] Kumari. 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 No current symptoms. (5) Metabolic encephalopathy Status: Acute Response to Treatment: Stable Problem Text: 06/05 - Improved. Dr Kumari following and plans LP for today. 06/04 - Improved. Dr Kumari following. 06/03 - Improved. Dr Kumari following. 06/01/2016: Now with ENRIQUEZ and confusion that is worsening. Dr. Kumari notified will see patient later today. Advised LP to be completed. 05/31/2016: feeling generally poor with elevated WBC. Re-eval abdominal U S d/t c /o pain. Consider repeat LP if US negative. 05/29/2016: had some confusion last night. Nursing to report to Neurosurgery for repeat evaluation. 05/27/2016: unchanged. 05/24/2016: unchanged . Mildly vague at times yet A/o x 3 05/23 - Pt's mental status seem stable today. She knew she was in [facility]. She knew the year and the president. 2/8 - Pt's mental status seem stable today. She knew she was in [facility]. She knew the year and the president. Nursing is concerned that the patient has been less stable with ambulation and requiring the walker more. Will re-consult PT. 05/21 - Mental status stable. 2 - Mental status stable. 2/4 - mental status stable 2/3 - mental status improved - up in chair, alert a little vague but at baseline 2/2 - Mental status has improved with externalization of shunt and tx of infection favor secondary to AREA FORESTER shunt infection (6) COPD (chronic obstructive pulmonary disease) Status: Chronic Response to Treatment: Stable Problem Text: Respiratory status stable. (7) Hypertension Status: Chronic Problem Text: 05/20 - Amlodipine was decreased to 5 mg daily. (8) Cerebral aneurysm Permanent Comment: s/p ICA/basilar coiling, s/p AREA FORESTER shunt 2014 Last Edited By: Yoseph Medina MD on May 10, 2016 13:40 Status: Chronic Response to Treatment: Stable Problem Text: S/P ICA/Basilar coiling and AREA FORESTER shunt 2014. (9) S/P splenectomy Status: Chronic Response to Treatment: Stable Problem Text: obviously higher sepsis risk Plan/VTE VTE Prophylaxis Ordered?: Yes (Lovenox (06/05/16 held for LP)) Plan Therapy: PT, OT VS, I&O, 24H, Fishbone Vital Signs/I&O Vital Signs Date Time Temp Pulse Resp B/P Pulse Ox O2 Delivery O2 Flow Rate FiO2 06/06/16 06:00 97.8 89 18 129/76 95 Room Air I&O- Last 24 Hours up to 6 AM 06/06/16 05:59 Intake Total 1260 ml Output Total 1250 ml Balance 10 ml Laboratory Data 24H LABS Laboratory Tests 2 06/05/16 16:16: CSF Appearance CLEAR, CSF Cell Count Tube # TUBE 1, CSF Color COLORLESS, CSF Eosinophils % 0.0, CSF Glucose 62, CSF Lymphocytes % 90.0H, CSF Monocytes % 8.0H , CSF Neutrophils % 2.0H, CSF RBC 11H, CSF Total Protein 36.8, CSF Tube Number TUBE 3, CSF WBC 15H 06/06/16 05:18: Blood Urea Nitrogen 15, Creatinine 0.71, Sodium Level 139, Potassium Level 4.1, Chloride Level 104, Carbon Dioxide Level 28, Calcium Level 9.4, Aspartate Amino Transf (AST/SGOT) 22, Alanine Aminotransferase (ALT/SGPT) 22, Alkaline Phosphatase 68, Total Bilirubin 0.1L, Total Protein 7.1, Albumin 2.9L, Albumin/ Globulin Ratio 0.69L, Anion Gap 7L, White Blood Count 7.1, Red Blood Count 3.84L , Hemoglobin 11.8L, Hematocrit 35.6L, Mean Corpuscular Volume 92.6, Mean Corpuscular Hemoglobin 30.7, Mean Corpuscular Hemoglobin Concent 33.2, Red Cell Distribution Width 13.7, Platelet Count 440, Neutrophils (%) (Auto) 51.5, Lymphocytes (%) (Auto) 29.6, Monocytes (%) (Auto) 10.4H, Eosinophils (%) (Auto) 4.6H, Basophils (%) (Auto) 0.8, Neutrophils # (Auto) 3.7, Lymphocytes # (Auto) 2.3, Monocytes # (Auto) 0.7, Eosinophils # (Auto) 0.3, Basophils # (Auto) 0.1, Glomerular Filtration Rate > 60.0, Large Unclassified Cells # 0.2, Large Unclassified Cells % 3.1 CBC/BMP Laboratory Tests 06/06/16 05:18 Calcium Level 9.4, Aspartate Amino Transf (AST/SGOT) 22, Alanine Aminotransferase (ALT/SGPT) 22, Alkaline Phosphatase 68, Total Bilirubin 0.1 L, Total Protein 7.1, Albumin 2.9 L, Red Blood Count 3.84 L, Mean Corpuscular Volume 92.6, Mean Corpuscular Hemoglobin 30.7, Mean Corpuscular Hemoglobin Concent 33.2, Red Cell Distribution Width 13.7, Neutrophils (%) (Auto) 51.5, Lymphocytes (%) (Auto) 29.6, Monocytes (%) (Auto) 10.4 H, Eosinophils (%) (Auto ) 4.6 H, Basophils (%) (Auto) 0.8, Neutrophils # (Auto) 3.7, Lymphocytes # (Auto ) 2.3, Monocytes # (Auto) 0.7, Eosinophils # (Auto) 0.3, Basophils # (Auto) 0.1 Microbiology Microbiology 05/31/16 Blood Culture - Final, Complete NO GROWTH AFTER 5 DAYS 05/31/16 Blood Culture - Final, Complete NO GROWTH AFTER 5 DAYS 06/05/16 Fungal Smear, Received Pending 06/05/16 Fungal Culture, Received Pending 06/05/16 Gram Stain, Received Pending 06/05/16 CSF Culture, Received Pending 05/31/16 Gram Stain - Final, Complete 05/31/16 Wound Culture - Final, Complete Citrobacter Freundii Klebsiella Pneumoniae Escherichia Hermannii ANA TAVAREZ PA-C Jun 06, 2016 09:52
[2016-06-06] MEDS: OMEPRAZOLE 20 MG CAP PO SCH (09:53)
[2016-06-06] MEDS: amLODIPine 5 MG TAB PO SCH (09:53)
[2016-06-06] MEDS: NYSTATIN CREAM 15 GM TOP SCH ×2 (09:54→20:59)
[2016-06-06] MEDS: ENOXAPARIN 40 MG/0.4 ML SYRINGE (J1650) SC SCH (09:54)
[2016-06-06] MEDS: POTASSIUM CHLORIDE 10 MEQ SR TABLET PO SCH ×2 (09:54→20:58)
[2016-06-06 14:00] VITALS: BP 118/63
[2016-06-06] MEDS: SERTRALINE HCL 50 MG TAB PO SCH (20:59)
[2016-06-06 21:00] VITALS: BP 161/82
[2016-06-06] MEDS: NICOTINE 7 MG/24 HR TRANSDERMAL TD SCH (21:00)
[2016-06-07] MEDS: MEROPENEM INJ 1 GM in D5W MINI-BAG PLUS 100 ML IV SCH ×3 (04:28→20:17)
[2016-06-07 05:55] VITALS: BP 160/77
[2016-06-07] MEDS: OMEPRAZOLE 20 MG CAP PO SCH (08:57)
[2016-06-07] MEDS: ENOXAPARIN 40 MG/0.4 ML SYRINGE (J1650) SC SCH (08:58)
[2016-06-07] MEDS: POTASSIUM CHLORIDE 10 MEQ SR TABLET PO SCH ×2 (08:58→20:17)
[2016-06-07] MEDS: NYSTATIN CREAM 15 GM TOP SCH ×2 (08:59→20:17)
[2016-06-07] MEDS: amLODIPine 5 MG TAB PO SCH (09:01)
[2016-06-07] MEDS: ADVAIR DISKUS 250/50 INH PWD INH SCH ×2 (09:02→21:00)
[2016-06-07] MEDS: traMADol 50 MG TAB PO PRN (10:29)
--- NOTE | 2016-06-07 11:27 | IPNPDOC ---
Subjective Date Seen The patient was seen on 06/07/16. Subjective Chief Complaint/HPI Suad is feeling alright this morning. She does cont to have RUQ pain. General: Reports: Fatigue Constitutional: Denies: Chills, Fever Pulmonary: Denies: Cough, Dyspnea Cardiovascular: Denies: Chest Pain Gastrointestinal: Denies: Diarrhea, Nausea, Vomiting Neurological: Denies: Weakness Psych: Reports: Mood Normal Objective Physical Examination General Exam: Positive: Alert, No Acute Distress Eye Exam: Negative: Sclera icteric ENT Exam: Positive: Mucous membr. moist/pink, Pharynx Normal Neck Exam: Positive: Supple, Negative: JVD, thyromegaly Chest Exam: Positive: Clear to auscultation Heart Exam: Positive: Normal S1, Normal S2, Rate Normal, Regular Rhythm, Negative: Murmurs, Rubs Abdomen Exam: Positive: Hernia (midline incisional hernia, soft, non-tender), Normal bowel sounds, Other, Soft, Negative: Hepatospenomegaly, Tenderness Extremity Exam: Positive: Normal pulses, Negative: Clubbing, Cyanosis, Edema Skin Exam: Positive: Nl turgor and temperature, Negative: Breakdown Psych Exam: Positive: Oriented x 3 Assessment /Plan Problems (1) Hepatic abscess Status: Acute Problem Text: 06/08 - Meropenem D 8, LP done on 06/05, would benefit from input from Dr Lao when she returns. 06/06 - Meropenem D7, for wound culture, results below, all documented as few colonies, LP done yesterday, culture pending 06/05 - On Meropenem. Wound cx: CITROBACTER FREUNDII, KLEBSIELLA PNEUMONIAE, ESCHERICHIA HERMANNII 06/04 - Dr Summers discussed with Dr Lao. Dr Lao feels the Staph epi has been treated. Vanco was D/C'ed. On Meropenem. Wound cx: CITROBACTER FREUNDII, KLEBSIELLA PNEUMONIAE, ESCHERICHIA HERMANNII 06/03 - Hepatic abscess/phlegmon visualized on CT abdomen and pelvis 06/01/16. At the time of the CT, the phlegmon did not have a drainable collection. Infectious disease had recommended vancomycin and meropenem on 05/31/16, although this was stopped due to right upper quadrant cultures coming back with gram-negative organisms. However, there his been no drainage culture of the phlegmon. White count has normalized, and patient is no longer confused. -May need to restart vancomycin; discussed with infectious disease/ Tricia Fan , as she was last rounding on the patient when vancomycin was stopped Jaskaran Summers MD (2) Common bile duct (CBD) obstruction Status: Acute Problem Text: 06/05 - Meropenem D6 06/04 - Meropenem D5 06/03 - Meropenem D4, Vanco was discontinued for unknown reason. D3 meropenem/D17 vanco 06/02/2016: blood culture negative. 06/01/2016: blood cxs pending. Will eval CT abd/pelvis today for further evaluation d/t recent confusion and pain. 05/31/16 BCX x 2 P 05/31/16 ABD WCX P 05/31/2016: RUQ pain c WBC to 17.2-STAT RUQ US s obvious ductal dilatation; therefore, favor transient bacteremia-meropenem started 05/30/16- Dr Centeno removed cholecystectomy tube 05/07/16 percutaneous transhepatic cholangiogram, distal CBD stricture biopsy ( benign by pathology), CBD stone removal and internal-external biliary drainage catheter placement by Dr. Centeno 05/06/16 ERCP unable to perform cholangiogram-Reindl to ask IR for CBD stent placement . (3) Infection of GROOVER AND STRIPER OPERATOR (ventriculoperitoneal) shunt Status: Acute Problem Text: 06/05 - Dr Kumari has planned a new LP for today. Dr Summers discussed with Dr Lao. Dr Lao feels the Staph epi has been treated. 06/04 - Dr Summers discussed with Dr Lao. Dr Lao feels the Staph epi has been treated. 06/03 - Vanco was discontinued due to gram-negative organisms on right upper quadrant vanco D16 06/02/2016: mentation slightly improved. No ENRIQUEZ. Vancomycin stopped due to gram negative cocci on wound cx. 06/01/2016: Now with ENRIQUEZ and confusion that is worsening. Dr. Kumari notified will see patient later today. Advised LP to be completed. 05/28 stable MS, afebrile, WBC-per ID can hold on repeat LP if not needing GROOVER AND STRIPER OPERATOR shunt-per Kenyetta favor hold repeat GROOVER AND STRIPER OPERATOR 05/20 repeat LP CSF CX S. epi-although took 6D to grow out! 05/26 CT head stable 05/27/2016: WBC 6.7, Tm 99.7-given stable, but now repeat CSF from 05/20 +, will need to repeat-d/w Tashia 05/24/2016: See notes below for plan. No changes. 05/23 - Had LP on 05/[address] Kumari. His note advises to repeat spinal tap in several days or sooner if needed to drain up to 30 ml of CSF, as the the LP from 05/[address] just [address] Lao from [place] is following and advises continuing the Vanco until 05/27. Will transfer her out of ICU to PCU. possibly able to treat c serial therapeutic LP +/- acetazolamide 05/20/16 Tm 99, WBC 7.5, LP took off 12 cc-patient tolerated c mild post-spinal frontal ENRIQUEZ 05/17/16 + S. epidermidis by shunt tap sens to vanco 05/10: The GROOVER AND STRIPER OPERATOR shunt was externalized by neurosurgery tonight because of evidence of infection, then 05/17/[address] Kumari. 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 No current symptoms. (5) Metabolic encephalopathy Status: Acute Response to Treatment: Stable Problem Text: 06/05 - Improved. Dr Kumari following and plans LP for today. 06/04 - Improved. Dr Kumari following. 06/03 - Improved. Dr Kumari following. 06/01/2016: Now with ENRIQUEZ and confusion that is worsening. Dr. Kumari notified will see patient later today. Advised LP to be completed. 05/31/2016: feeling generally poor with elevated WBC. Re-eval abdominal U S d/t c /o pain. Consider repeat LP if US negative. 05/29/2016: had some confusion last night. Nursing to report to Neurosurgery for repeat evaluation. 05/27/2016: unchanged. 05/24/2016: unchanged MS. Mildly vague at times yet A/o x 3 05/23 - Pt's mental status seem stable today. She knew she was in [facility]. She knew the year and the president. 05/22 - Pt's mental status seem stable today. She knew she was in [facility]. She knew the year and the president. Nursing is concerned that the patient has been less stable with ambulation and requiring the walker more. Will re-consult PT. 05/21 - Mental status stable. 26 - Mental status stable. 2/4 - mental status stable 2/3 - mental status improved - up in chair, alert a little vague but at baseline 2/2 - Mental status has improved with externalization of shunt and tx of infection favor secondary to GROOVER AND STRIPER OPERATOR shunt infection (6) COPD (chronic obstructive pulmonary disease) Status: Chronic Response to Treatment: Stable Problem Text: Respiratory status stable. (7) Hypertension Status: Chronic Problem Text: 05/20 - Amlodipine was decreased to 5 mg daily. (8) Cerebral aneurysm Permanent Comment: s/p ICA/basilar coiling, s/p GROOVER AND STRIPER OPERATOR shunt 2014 Last Edited By: Yoseph Medina MD on May 10, 2016 13:40 Status: Chronic Response to Treatment: Stable Problem Text: S/P ICA/Basilar coiling and GROOVER AND STRIPER OPERATOR shunt 2014. (9) S/P splenectomy Status: Chronic Response to Treatment: Stable Problem Text: obviously higher sepsis risk Plan/VTE VTE Prophylaxis Ordered?: Yes (Lovenox (06/05/16 held for LP)) Plan Therapy: PT, OT Attending note: I saw and evaluated the patient, through the plan of care as discussed and documented by Ana Tavarez. Patient seems to be favoring not having her shunt replaced. As this could significantly impact her course of treatment, I recommended that she talk this over with her family, and ask any pertinent questions to neurosurgery. Patient is interested in knowing if she can have palliative spinal taps in [place] of shunt replacement. She is also not sure what her long-term prognosis is. Instructed patient to ask these questions when Dr. Kumari rounds. Jaskaran Summers MD VS, I&O, 24H, Fishbone Vital Signs/I&O Vital Signs Date Time Temp Pulse Resp B/P Pulse Ox O2 Delivery O2 Flow Rate FiO2 06/07/16 11:00 18 Room Air 06/07/16 09:01 71 125/65 06/07/16 05:55 96.7 96 I&O- Last 24 Hours up to 6 AM 06/07/16 06:00 Intake Total 1160 ml Output Total 950 ml Balance 210 ml Laboratory Data Microbiology Microbiology 05/31/16 Blood Culture - Final, Complete NO GROWTH AFTER 5 DAYS 05/31/16 Blood Culture - Final, Complete NO GROWTH AFTER 5 DAYS 06/05/16 Fungal Smear, Received Pending 06/05/16 Fungal Culture, Received Pending 06/05/16 Gram Stain - Final, Complete 06/05/16 CSF Culture - Final, Complete 05/31/16 Gram Stain - Final, Complete 05/31/16 Wound Culture - Final, Complete Citrobacter Freundii Klebsiella Pneumoniae Escherichia Hermannii ANA TAVAREZ PA-C Jun 07, 2016 11:27 JASKARAN SUMMERS MD Jun 07, 2016 16:01
[2016-06-07 14:00] VITALS: BP 124/55
[2016-06-07] MEDS: SERTRALINE HCL 50 MG TAB PO SCH (20:17)
[2016-06-07] MEDS: NICOTINE 7 MG/24 HR TRANSDERMAL TD SCH (20:18)
[2016-06-07 20:35] VITALS: BP 126/58
[2016-06-08 05:15] VITALS: BP 137/63
[2016-06-08] MEDS: MEROPENEM INJ 1 GM in D5W MINI-BAG PLUS 100 ML IV SCH ×3 (05:22→20:17)
[2016-06-08] MEDS: ADVAIR DISKUS 250/50 INH PWD INH SCH ×2 (07:22→19:34)
[2016-06-08] MEDS: POTASSIUM CHLORIDE 10 MEQ SR TABLET PO SCH ×2 (08:35→20:17)
[2016-06-08] MEDS: amLODIPine 5 MG TAB PO SCH (08:36)
[2016-06-08] MEDS: ONDANSETRON 4MG/2ML VIAL (J2405) IV PRN (08:36)
[2016-06-08] MEDS: ENOXAPARIN 40 MG/0.4 ML SYRINGE (J1650) SC SCH (08:36)
[2016-06-08] MEDS: OMEPRAZOLE 20 MG CAP PO SCH (08:36)
[2016-06-08] MEDS: NYSTATIN CREAM 15 GM TOP SCH ×2 (09:00→20:18)
[2016-06-08 09:30] VITALS: BP 108/56
--- NOTE | 2016-06-08 09:57 | IPNPDOC ---
Subjective Date Seen The patient was seen on 06/08/16. Subjective Chief Complaint/HPI Pt without new concerns. She notes that her RUQ abd is better this morning, alleviated by a dose of Zofran. General: Denies: Fatigue Constitutional: Denies: Chills, Fever ENT: Denies: Head Aches Pulmonary: Denies: Cough, Dyspnea Cardiovascular: Denies: Chest Pain, Palpitations Gastrointestinal: Denies: Abdominal Pain, Diarrhea, Nausea, Vomiting Neurological: Reports: Weakness Objective Physical Examination General Exam: Positive: Alert, No Acute Distress Eye Exam: Negative: Sclera icteric ENT Exam: Positive: Mucous membr. moist/pink, Pharynx Normal Neck Exam: Positive: Supple, Negative: JVD, thyromegaly Chest Exam: Positive: Clear to auscultation Heart Exam: Positive: Normal S1, Normal S2, Rate Normal, Regular Rhythm, Negative: Murmurs, Rubs Abdomen Exam: Positive: Hernia (midline incisional hernia, soft, non-tender), Normal bowel sounds, Other, Soft, Negative: Hepatospenomegaly, Tenderness Extremity Exam: Positive: Normal pulses, Negative: Clubbing, Cyanosis, Edema Skin Exam: Positive: Nl turgor and temperature, Negative: Breakdown Psych Exam: Positive: Oriented x 3 Assessment /Plan Assessment Family Medicine Attending Note: I saw and examined Ms. Murcia, discussed with KARINE Curtis. Agree with their note as documented. I also had a chance to discuss her case with Dr. Kumari today. He is of the impression that she should not have a shunt replaced until there are 0 polymorphonuclear cells in her CSF. He is very concerned because he reports that staph epidermidis is known to colonize the edge of the ventricles the brain and be very difficult to eradicate. He believes the patient may be discharged home on a antibiotic regimen selected by infectious disease. I discussed this with the patient, and she was in agreement. She says she had artery pretty much decided she would not agree to replacement of the shunt if it were offered. 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 06/07 - Meropenem D 8, LP done on 06/05, would benefit from input from Dr Lao when she returns. 06/06 - Meropenem D7, for wound culture, results below, all documented as few colonies, LP done yesterday, culture pending 06/05 - On Meropenem. Wound cx: CITROBACTER FREUNDII, KLEBSIELLA PNEUMONIAE, ESCHERICHIA HERMANNII 06/04 - Dr Summers discussed with Dr Lao. Dr Lao feels the Staph epi has been treated. Vanco was D/C'ed. On Meropenem. Wound cx: CITROBACTER FREUNDII, KLEBSIELLA PNEUMONIAE, ESCHERICHIA HERMANNII 06/03 - Hepatic abscess/phlegmon visualized on CT abdomen and pelvis 06/01/16. At the time of the CT, the phlegmon did not have a drainable collection. Infectious disease had recommended vancomycin and meropenem on 05/31/16, although this was stopped due to right upper quadrant cultures coming back with gram-negative organisms. However, there his been no drainage culture of the phlegmon. White count has normalized, and patient is no longer confused. -May need to restart vancomycin; discussed with infectious disease/ Tricia Fan , as she was last rounding on the patient when vancomycin was stopped Cresencio Summers MD (2) Common bile duct (CBD) obstruction Status: Acute Problem Text: 06/05 - Meropenem D6 06/04 - Meropenem D5 06/03 - Meropenem D4, Vanco was discontinued for unknown reason. D3 meropenem/D17 vanco 06/02/2016: blood culture negative. 06/01/2016: blood cxs pending. Will eval CT abd/pelvis today for further evaluation d/t recent confusion and pain. 05/31/16 BCX x 2 P 05/31/16 ABD WCX P 05/31/2016: RUQ pain c WBC to 17.2-STAT RUQ US s obvious ductal dilatation; therefore, favor transient bacteremia-meropenem started 05/30/16- Dr Centeno removed cholecystectomy tube 05/07/16 percutaneous transhepatic cholangiogram, distal CBD stricture biopsy ( benign by pathology), CBD stone removal and internal-external biliary drainage catheter placement by Dr. Centeno 05/06/16 ERCP unable to perform cholangiogram-Reindl to ask IR for CBD stent placement . (3) Infection of GEOSPATIAL SCIENTIST (ventriculoperitoneal) shunt Status: Acute Problem Text: 06/08 - Dr. Kumari expresses concern about the idea of replacing a shunt. The patient states she has pretty much decided she would not consent to one anyway. We need to figure out what, if anything we need to do for her regarding antibiotic therapy and the brain/CSF. Then we should look toward discharging her home. 06/05 - Dr Kumari has planned a new LP for today. Dr Summers discussed with Dr Lao. Dr Lao feels the Staph epi has been treated. 06/04 - Dr Summers discussed with Dr Lao. Dr Lao feels the Staph epi has been treated. 06/03 - Vanco was discontinued due to gram-negative organisms on right upper quadrant vanco D16 06/02/2016: mentation slightly improved. No ENRIQUEZ. Vancomycin stopped due to gram negative cocci on wound cx. 06/01/2016: Now with ENRIQUEZ and confusion that is worsening. Dr. Kumari notified will see patient later today. Advised LP to be completed. 05/28 stable MS, afebrile, WBC-per ID can hold on repeat LP if not needing GEOSPATIAL SCIENTIST shunt-per Kenyetta favor hold repeat GEOSPATIAL SCIENTIST 05/20 repeat LP CSF CX S. epi-although took 6D to grow out! 05/26 CT head stable 05/27/2016: WBC 6.7, Tm 99.7-given stable, but now repeat CSF from 05/20 +, will need to repeat-d/w Tashia 05/24/2016: See notes below for plan. No changes. 05/23 - Had LP on 05/[address] Kumari. His note advises to repeat spinal tap in several days or sooner if needed to drain up to 30 ml of CSF, as the the LP from 05/20 just [address] Lao from [place] is following and advises continuing the Vanco until 05/27. Will transfer her out of ICU to PCU. possibly able to treat c serial therapeutic LP +/- acetazolamide 05/20/16 Tm 99, WBC 7.5, LP took off 12 cc-patient tolerated c mild post-spinal frontal ENRIQUEZ 05/17/16 + S. epidermidis by shunt tap sens to vanco 05/10: The GEOSPATIAL SCIENTIST shunt was externalized by neurosurgery tonight because of evidence of infection, then 05/17/[address] Kumari. 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 No current symptoms. (5) Metabolic encephalopathy Status: Acute Response to Treatment: Stable Problem Text: 06/05 - Improved. Dr Kumari following and plans LP for today. 06/04 - Improved. Dr Kumari following. 06/03 - Improved. Dr Kumari following. 06/01/2016: Now with ENRIQUEZ and confusion that is worsening. Dr. Kumari notified will see patient later today. Advised LP to be completed. 05/31/2016: feeling generally poor with elevated WBC. Re-eval abdominal U S d/t c /o pain. Consider repeat LP if US negative. 05/29/2016: had some confusion last night. Nursing to report to Neurosurgery for repeat evaluation. 05/27/2016: unchanged. 05/24/2016: unchanged MS. Mildly vague at times yet A/o x 3 05/23 - Pt's mental status seem stable today. She knew she was in [facility]. She knew the year and the president. 05/22 - Pt's mental status seem stable today. She knew she was in [facility]. She knew the year and the president. Nursing is concerned that the patient has been less stable with ambulation and requiring the walker more. Will re-consult PT. 05/21 - Mental status stable. 05/20 - Mental status stable. 05/18 - mental status stable / - mental status improved - up in chair, alert a little vague but at baseline 2/ - Mental status has improved with externalization of shunt and tx of infection favor secondary to GEOSPATIAL SCIENTIST shunt infection (6) COPD (chronic obstructive pulmonary disease) Status: Chronic Response to Treatment: Stable Problem Text: Respiratory status stable. (7) Hypertension Status: Chronic Problem Text: 05/20 - Amlodipine was decreased to 5 mg daily. (8) Cerebral aneurysm Permanent Comment: s/p ICA/basilar coiling, s/p GEOSPATIAL SCIENTIST shunt 2014 Last Edited By: Yoseph Medina MD on May 10, 2016 13:40 Status: Chronic Response to Treatment: Stable Problem Text: S/P ICA/Basilar coiling and GEOSPATIAL SCIENTIST shunt 2014. (9) S/P splenectomy Status: Chronic Response to Treatment: Stable Problem Text: obviously higher sepsis risk Plan/VTE VTE Prophylaxis Ordered?: Yes (Lovenox (06/05/16 held for LP)) Plan Therapy: PT, OT VS, I&O, 24H, Fishbone Vital Signs/I&O Vital Signs Date Time Temp Pulse Resp B/P Pulse Ox O2 Delivery O2 Flow Rate FiO2 06/08/16 08:36 63 108/56 06/08/16 05:15 96.7 17 95 Room Air I&O- Last 24 Hours up to 6 AM 06/08/16 06:00 Intake Total 1400 ml Output Total 725 ml Balance 675 ml Laboratory Data Microbiology Microbiology 05/31/16 Blood Culture - Final, Complete NO GROWTH AFTER 5 DAYS 05/31/16 Blood Culture - Final, Complete NO GROWTH AFTER 5 DAYS 06/05/16 Fungal Smear, Received Pending 06/05/16 Fungal Culture, Received Pending 06/05/16 Gram Stain - Final, Complete 06/05/16 CSF Culture - Final, Complete 05/31/16 Gram Stain - Final, Complete 05/31/16 Wound Culture - Final, Complete Citrobacter Freundii Klebsiella Pneumoniae Escherichia Hermannii ANA TAVAREZ PA-C Jun 08, 2016 09:57 Scott Mcgee MD Jun 08, 2016 20:02
[2016-06-08 14:00] VITALS: BP 122/54
[2016-06-08] MEDS: SERTRALINE HCL 50 MG TAB PO SCH (20:17)
[2016-06-08] MEDS: NICOTINE 7 MG/24 HR TRANSDERMAL TD SCH (20:18)
[2016-06-08 20:45] VITALS: BP 125/60
[2016-06-09 04:50] VITALS: BP 143/70
[2016-06-09] MEDS: MEROPENEM INJ 1 GM in D5W MINI-BAG PLUS 100 ML IV SCH ×3 (05:01→21:37)
[2016-06-09 05:51] LABS: MEAN CORPUSCULAR HGB CONC 32.3 g/dl (32.0-36.5); RED CELL DISTRIBUTION WIDTH 13.5 % (11.5-14.5); WHITE BLOOD COUNT 8.8 K/mm3 (4.0-10.0)
[2016-06-09 06:08] LABS: ALBUMIN 3.3 GM/DL (3.2-5.2); ALBUMIN/GLOBULIN RATIO 0.75 (1.00-1.93); ALKALINE PHOSPHATASE 82 U/L (45-117); ALT/SGPT 21 U/L (12-78); ANION GAP 9 MEQ/L (8-16); AST/SGOT 16 U/L (15-37); BILIRUBIN,TOTAL 0.2 MG/DL (0.2-1.0); BLOOD UREA NITROGEN 18 MG/DL (7-18); CALCIUM LEVEL 9.6 MG/DL (8.8-10.2); CARBON DIOXIDE LEVEL 27 MEQ/L (21-32); CHLORIDE LEVEL 102 MEQ/L (98-107); CREATININE FOR GFR 0.75 MG/DL (0.55-1.02); GLOMERULAR FILTRATION RATE > 60.0 (>39); GLUCOSE, FASTING 119 MG/DL (83-110); POTASSIUM SERUM 4.2 MEQ/L (3.5-5.1); SODIUM LEVEL 138 MEQ/L (136-145); TOTAL PROTEIN 7.7 GM/DL (6.4-8.2)
[2016-06-09] MEDS: traMADol 50 MG TAB PO PRN (06:33)
[2016-06-09] MEDS: ADVAIR DISKUS 250/50 INH PWD INH SCH ×2 (07:22→19:34)
[2016-06-09] MEDS: POTASSIUM CHLORIDE 10 MEQ SR TABLET PO SCH ×2 (09:16→21:37)
[2016-06-09] MEDS: ENOXAPARIN 40 MG/0.4 ML SYRINGE (J1650) SC SCH (09:16)
[2016-06-09] MEDS: OMEPRAZOLE 20 MG CAP PO SCH (09:16)
[2016-06-09] MEDS: amLODIPine 5 MG TAB PO SCH (09:17)
[2016-06-09] MEDS: NYSTATIN CREAM 15 GM TOP SCH ×2 (09:17→21:38)
[2016-06-09] MEDS ORDERED: ONDANSETRON 4 MG TAB (S0181) PO PRN (11:00)
--- NOTE | 2016-06-09 11:05 | IPNPDOC ---
Subjective Date Seen The patient was seen on 06/09/16. Subjective Chief Complaint/HPI Pt's dgt Zaira at bedside this morning. She is agitated that no one has been calling her or her sister (HCP). States that she feels they are not being informed of their mom's condition and plans for treatment. I d/w her that her mom is capable of making her own decisions and has not expressed to me a desire for me to reach out to her family for a discussion, had she made this request I would have been happy to call. I also explained to her that if I felt her mom was having difficulty understanding some of the information she was being given at that time we also would reach out the the HCP to discuss as well. Suad this morning has no questions. She has decided that she does not want the shunt replaced. She states this multiple times. Each time she does Zaira says "mom, i thought we were going to discuss this with Dr Kumari at our family meeting tomorrow". I expressed to Zaira that it sounded like her mom had made up her mind, and the best approach at this point, is to move forward learning about what the options are now that she has decided she does not want the shunt placed. General: Reports: Fatigue Constitutional: Denies: Chills, Fever ENT: Denies: Head Aches Pulmonary: Denies: Cough, Dyspnea Cardiovascular: Denies: Chest Pain, Palpitations Gastrointestinal: Reports: Nausea (every morning, previously took Zofran every morning for this, hasn't since admission.), Denies: Diarrhea, Vomiting Neurological: Reports: Weakness Psych: Reports: Mood Normal Objective Physical Examination General Exam: Positive: Alert, No Acute Distress Eye Exam: Negative: Sclera icteric ENT Exam: Positive: Mucous membr. moist/pink, Pharynx Normal Neck Exam: Positive: Supple, Negative: JVD, thyromegaly Chest Exam: Positive: Clear to auscultation Heart Exam: Positive: Normal S1, Normal S2, Rate Normal, Regular Rhythm, Negative: Murmurs, Rubs Abdomen Exam: Positive: Hernia (midline incisional hernia, soft, non-tender), Normal bowel sounds, Other, Soft, Negative: Hepatospenomegaly, Tenderness Extremity Exam: Positive: Normal pulses, Negative: Clubbing, Cyanosis, Edema Skin Exam: Positive: Nl turgor and temperature, Negative: Breakdown Psych Exam: Positive: Oriented x 3 Assessment /Plan Assessment Family Medicine Attending Note: I saw and examined Ms. Murcia, discussed with KARINE Curtis. Agree with their note as documented. I confirmed with the patient that she is not very interested in shunt placement at this point in time. She is interested in finding out what will happen to her if she does not have the shunt. It sounds as if the family and Dr. Kumari plan to me in the near future. It continues to be my opinion that the next step for planning her discharge is a comprehensive antibiotic regimen from ID that could be administered by home health. 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 06/08 Meropenem D9, will benefit from Dr Lao's input when she returns. 06/07 - Meropenem D 8, LP done on 06/05, would benefit from input from Dr Lao when she returns. 06/06 - Meropenem D7, for wound culture, results below, all documented as few colonies, LP done yesterday, culture pending 06/05 - On Meropenem. Wound cx: CITROBACTER FREUNDII, KLEBSIELLA PNEUMONIAE, ESCHERICHIA HERMANNII 06/04 - Dr Summers discussed with Dr Lao. Dr Lao feels the Staph epi has been treated. Vanco was D/C'ed. On Meropenem. Wound cx: CITROBACTER FREUNDII, KLEBSIELLA PNEUMONIAE, ESCHERICHIA HERMANNII 06/03 - Hepatic abscess/phlegmon visualized on CT abdomen and pelvis 06/01/16. At the time of the CT, the phlegmon did not have a drainable collection. Infectious disease had recommended vancomycin and meropenem on 05/31/16, although this was stopped due to right upper quadrant cultures coming back with gram-negative organisms. However, there his been no drainage culture of the phlegmon. White count has normalized, and patient is no longer confused. -May need to restart vancomycin; discussed with infectious disease/ Tricia Fan , as she was last rounding on the patient when vancomycin was stopped Cresencio Summers MD (2) Common bile duct (CBD) obstruction Status: Acute Problem Text: 06/05 - Meropenem D6 06/04 - Meropenem D5 06/03 - Meropenem D4, Vanco was discontinued for unknown reason. D3 meropenem/D17 vanco 06/02/2016: blood culture negative. 06/01/2016: blood cxs pending. Will eval CT abd/pelvis today for further evaluation d/t recent confusion and pain. 05/31/16 BCX x 2 P 05/31/16 ABD WCX P 05/31/2016: RUQ pain c WBC to 17.2-STAT RUQ US s obvious ductal dilatation; therefore, favor transient bacteremia-meropenem started 05/30/16- Dr Centeno removed cholecystectomy tube 05/07/16 percutaneous transhepatic cholangiogram, distal CBD stricture biopsy ( benign by pathology), CBD stone removal and internal-external biliary drainage catheter placement by Dr. Centeno 05/06/16 ERCP unable to perform cholangiogram-Reindl to ask IR for CBD stent placement . (3) Infection of SHINGLE BOLT CUTTER (ventriculoperitoneal) shunt Status: Acute Problem Text: 06/09 - Family meeting planned for Friday [address] Kumari 06/08 - Dr. Kumari expresses concern about the idea of replacing a shunt. The patient states she has pretty much decided she would not consent to one anyway. We need to figure out what, if anything we need to do for her regarding antibiotic therapy and the brain/CSF. Then we should look toward discharging her home. 06/05 - Dr Kumari has planned a new LP for today. Dr Summers discussed with Dr Lao. Dr Lao feels the Staph epi has been treated. 06/04 - Dr Summers discussed with Dr Lao. Dr Lao feels the Staph epi has been treated. 06/03 - Vanco was discontinued due to gram-negative organisms on right upper quadrant vanco D16 06/02/2016: mentation slightly improved. No ENRIQUEZ. Vancomycin stopped due to gram negative cocci on wound cx. 06/01/2016: Now with ENRIQUEZ and confusion that is worsening. Dr. Kumari notified will see patient later today. Advised LP to be completed. 05/28 stable MS, afebrile, WBC-per ID can hold on repeat LP if not needing SHINGLE BOLT CUTTER shunt-per Kenyetta favor hold repeat SHINGLE BOLT CUTTER 05/20 repeat LP CSF CX S. epi-although took 6D to grow out! 05/26 CT head stable 05/27/2016: WBC 6.7, Tm 99.7-given stable, but now repeat CSF from 05/20 +, will need to repeat-d/w Tashia 05/24/2016: See notes below for plan. No changes. 05/23 - Had LP on 05/[address] Kumari. His note advises to repeat spinal tap in several days or sooner if needed to drain up to 30 ml of CSF, as the the LP from 05/20 just [address] Lao from [place] is following and advises continuing the Vanco until 05/27. Will transfer her out of ICU to PCU. possibly able to treat c serial therapeutic LP +/- acetazolamide 05/20/16 Tm 99, WBC 7.5, LP took off 12 cc-patient tolerated c mild post-spinal frontal ENRIQUEZ 05/17/16 + S. epidermidis by shunt tap sens to vanco 05/10: The SHINGLE BOLT CUTTER shunt was externalized by neurosurgery tonight because of evidence of infection, then 05/17/[address] Kumari. 05/08 normal shunt study, neurosurgery suggests shunt likely colonized, and hopes to treat with abx; prefers LP and culture to directly culturing from shunt 05/06/16 MRI brain s/c mild hydro s change, no obvious infection (meningitis, shuntitis) (4) Incisional hernia Status: Chronic Problem Text: Questionable incisional hernia. No current symptoms. (5) Metabolic encephalopathy Status: Resolved Response to Treatment: Stable Problem Text: 06/05 - Improved. Dr Kumari following and plans LP for today. 06/04 - Improved. Dr Kumari following. 06/03 - Improved. Dr Kumari following. 06/01/2016: Now with ENRIQUEZ and confusion that is worsening. Dr. Kumari notified will see patient later today. Advised LP to be completed. 05/31/2016: feeling generally poor with elevated WBC. Re-eval abdominal U S d/t c /o pain. Consider repeat LP if US negative. 05/29/2016: had some confusion last night. Nursing to report to Neurosurgery for repeat evaluation. 05/27/2016: unchanged. 05/24/2016: unchanged MS. Mildly vague at times yet A/o x 3 05/23 - Pt's mental status seem stable today. She knew she was in [facility]. She knew the year and the president. 05/22 - Pt's mental status seem stable today. She knew she was in [facility]. She knew the year and the president. Nursing is concerned that the patient has been less stable with ambulation and requiring the walker more. Will re-consult PT. 05/21 - Mental status stable. 6 - Mental status stable. 05/18 - mental status stable 2/3 - mental status improved - up in chair, alert a little vague but at baseline 2/2 - Mental status has improved with externalization of shunt and tx of infection favor secondary to SHINGLE BOLT CUTTER shunt infection (6) COPD (chronic obstructive pulmonary disease) Status: Chronic Response to Treatment: Stable Problem Text: Respiratory status stable. (7) Hypertension Status: Chronic Problem Text: 05/20 - Amlodipine was decreased to 5 mg daily. (8) Cerebral aneurysm Permanent Comment: s/p ICA/basilar coiling, s/p SHINGLE BOLT CUTTER shunt 2014 Last Edited By: Yoseph Medina MD on May 10, 2016 13:40 Status: Chronic Response to Treatment: Stable Problem Text: S/P ICA/Basilar coiling and SHINGLE BOLT CUTTER shunt 2014. (9) S/P splenectomy Status: Chronic Response to Treatment: Stable Problem Text: obviously higher sepsis risk Plan/VTE VTE Prophylaxis Ordered?: Yes (Lovenox (06/05/16 held for LP)) Plan Therapy: PT, OT VS, I&O, 24H, Fishbone Vital Signs/I&O Vital Signs Date Time Temp Pulse Resp B/P Pulse Ox O2 Delivery O2 Flow Rate FiO2 06/09/16 09:17 69 118/59 06/09/16 09:15 Room Air 06/09/16 07:25 18 06/09/16 04:50 96.7 96 I&O- Last 24 Hours up to 6 AM 06/09/16 06:00 Intake Total 1160 ml Output Total 1400 ml Balance -240 ml Laboratory Data 24H LABS Laboratory Tests 2 06/09/16 05:23: Blood Urea Nitrogen 18, Creatinine 0.75, Sodium Level 138, Potassium Level 4.2, Chloride Level 102, Carbon Dioxide Level 27, Calcium Level 9.6, Aspartate Amino Transf (AST/SGOT) 16, Alanine Aminotransferase (ALT/SGPT) 21, Alkaline Phosphatase 82, Total Bilirubin 0.2, Total Protein 7.7, Albumin 3.3, Albumin/ Globulin Ratio 0.75L, Anion Gap 9, Glomerular Filtration Rate > 60.0 CBC/BMP Laboratory Tests 06/09/16 05:23 Calcium Level 9.6, Aspartate Amino Transf (AST/SGOT) 16, Alanine Aminotransferase (ALT/SGPT) 21, Alkaline Phosphatase 82, Total Bilirubin 0.2, Total Protein 7.7, Albumin 3.3, Red Blood Count 4.25, Mean Corpuscular Volume 93.0, Mean Corpuscular Hemoglobin 30.0, Mean Corpuscular Hemoglobin Concent 32.3 , Red Cell Distribution Width 13.5 Microbiology Microbiology 05/31/16 Blood Culture - Final, Complete NO GROWTH AFTER 5 DAYS 05/31/16 Blood Culture - Final, Complete NO GROWTH AFTER 5 DAYS 06/05/16 Fungal Smear, Received Pending 06/05/16 Fungal Culture, Received Pending 06/05/16 Gram Stain - Final, Complete 06/05/16 CSF Culture - Final, Complete 05/31/16 Gram Stain - Final, Complete 05/31/16 Wound Culture - Final, Complete Citrobacter Freundii Klebsiella Pneumoniae Escherichia Hermannii ANA TAVAREZ PA-C Jun 09, 2016 11:05 Scott Mcgee MD Jun 09, 2016 19:51
[2016-06-09 14:00] VITALS: BP 113/57
[2016-06-09] MEDS: NICOTINE 7 MG/24 HR TRANSDERMAL TD SCH (21:36)
[2016-06-09] MEDS: SERTRALINE HCL 50 MG TAB PO SCH (21:37)
[2016-06-09 22:00] VITALS: BP 112/54
[2016-06-10] MEDS: MEROPENEM INJ 1 GM in D5W MINI-BAG PLUS 100 ML IV SCH ×3 (05:38→21:40)
[2016-06-10 06:34] VITALS: BP 112/54
[2016-06-10] MEDS: ADVAIR DISKUS 250/50 INH PWD INH SCH ×2 (08:17→21:33)
[2016-06-10] MEDS: POTASSIUM CHLORIDE 10 MEQ SR TABLET PO SCH ×2 (09:49→21:39)
[2016-06-10] MEDS: ENOXAPARIN 40 MG/0.4 ML SYRINGE (J1650) SC SCH (09:49)
[2016-06-10] MEDS: OMEPRAZOLE 20 MG CAP PO SCH (09:49)
[2016-06-10] MEDS: traMADol 50 MG TAB PO PRN (09:51)
[2016-06-10] MEDS: amLODIPine 5 MG TAB PO SCH (09:52)
[2016-06-10] MEDS: NYSTATIN CREAM 15 GM TOP SCH ×2 (09:53→21:40)
--- NOTE | 2016-06-10 12:58 | IPNPDOC ---
Subjective Date Seen The patient was seen on 06/10/16. Subjective Chief Complaint/HPI The patient is a 70-year-old female admitted with a reason for visit of Metabolic Encephalopathy. Events since last encounter Pt feeling well. No concerns. She does not wish to pursue shunt replacement. Instead wants PRN spinal taps if needed. Family meeting tonight with Kenyetta. Constitutional: Denies: Chills, Fever, Malaise, Night Sweats, Weakness Eyes: Denies: Vision change ENT: Denies: Head Aches Skin: Denies: Rash Pulmonary: Denies: Cough, Dyspnea Cardiovascular: Denies: Chest Pain Gastrointestinal: Denies: Nausea, Vomiting Other systems 10 pt ROS otherwise negative Objective Physical Examination General Exam: Positive: Alert, No Acute Distress Eye Exam: Negative: Sclera icteric ENT Exam: Positive: Mucous membr. moist/pink, Pharynx Normal Neck Exam: Positive: Supple, Negative: JVD, thyromegaly Chest Exam: Positive: Clear to auscultation Heart Exam: Positive: Normal S1, Normal S2, Rate Normal, Regular Rhythm, Negative: Murmurs, Rubs Abdomen Exam: Positive: Hernia (midline incisional hernia, soft, non-tender), Normal bowel sounds, Other, Soft, Negative: Hepatospenomegaly, Tenderness Extremity Exam: Positive: Normal pulses, Negative: Clubbing, Cyanosis, Edema Skin Exam: Positive: Nl turgor and temperature, Negative: Breakdown Neuro Exam: Positive: Other (alert to self and place. disoriented to time: 1970 , knows Obama is no longer President and she wasn't happy about new president but could not name the new president) Psych Exam: Positive: Oriented x 3 Assessment /Plan Problems (1) Infection of BRUSHER HAND (ventriculoperitoneal) shunt Status: Acute Problem Text: Family meeting at [address]. Kumari expresses concern about the idea of replacing a shunt. The patient does not want to replace the shunt. LP shows cont WBC 15. D/W Dr. Lao, who will see pt tomorrow. Will likely be able to D/C home on PO levaquin x 6 wks. Does not think LP needs to be treated further. - followup on family meeting - ID to see 06/11/16 - discharge planning (2) Hepatic abscess Status: Acute Problem Text: Hepatic abscess/phlegmon visualized on CT abdomen and pelvis 06/01. At the time of the CT, the phlegmon did not have a drainable collection. RUQ drain cx CITROBACTER FREUNDII, KLEBSIELLA PNEUMONIAE, ESCHERICHIA HERMANNII. Meropenem D11. D/W Dr. Lao. Cont meropenem until ready for d/c, then change to PO levaquin 750 mg x 6 wks. (3) Common bile duct (CBD) obstruction Status: Acute Problem Text: S/P percutaneous transhepatic cholangiogram 05/07/16, distal CBD stricture biopsy (benign by pathology), CBD stone removal and internal-external biliary drainage catheter placement by Dr. Centeno. Removed cholecystectomy tube . RUQ drain cx CITROBACTER FREUNDII, KLEBSIELLA PNEUMONIAE, ESCHERICHIA HERMANNII. Day 11 meropenem. . (4) Incisional hernia Status: Chronic Problem Text: Questionable incisional hernia. No current symptoms. (5) Metabolic encephalopathy Status: Resolved Response to Treatment: Stable Problem Text: 06/05 - Improved. Dr Kumari following and plans LP for today. 06/04 - Improved. Dr Kumari following. 06/03 - Improved. Dr Kumari following. 06/01/2016: Now with ENRIQUEZ and confusion that is worsening. Dr. Kumari notified will see patient later today. Advised LP to be completed. 05/31/2016: feeling generally poor with elevated WBC. Re-eval abdominal U S d/t c /o pain. Consider repeat LP if US negative. 05/29/2016: had some confusion last night. Nursing to report to Neurosurgery for repeat evaluation. 05/27/2016: unchanged. 05/24/2016: unchanged MS. Mildly vague at times yet A/o x 3 05/23 - Pt's mental status seem stable today. She knew she was in [facility]. She knew the year and the president. 05/22 - Pt's mental status seem stable today. She knew she was in [facility]. She knew the year and the president. Nursing is concerned that the patient has been less stable with ambulation and requiring the walker more. Will re-consult PT. 05/21 - Mental status stable. 05/20 - Mental status stable. 05/18 - mental status stable /3 - mental status improved - up in chair, alert a little vague but at baseline 05/16 - Mental status has improved with externalization of shunt and tx of infection favor secondary to BRUSHER HAND shunt infection (6) COPD (chronic obstructive pulmonary disease) Status: Chronic Response to Treatment: Stable Problem Text: Respiratory status stable. (7) Hypertension Status: Chronic Problem Text: 05/20 - Amlodipine was decreased to 5 mg daily. (8) Cerebral aneurysm Permanent Comment: s/p ICA/basilar coiling, s/p BRUSHER HAND shunt 2014 Last Edited By: Yoseph Medina MD on May 10, 2016 13:40 Status: Chronic Response to Treatment: Stable Problem Text: S/P ICA/Basilar coiling and BRUSHER HAND shunt 2014. (9) S/P splenectomy Status: Chronic Response to Treatment: Stable Problem Text: obviously higher sepsis risk Plan/VTE VTE Prophylaxis Ordered?: Yes (Lovenox (06/05/16 held for LP)) Plan Therapy: PT, OT VS, I&O, 24H, Fishbone Vital Signs/I&O Vital Signs Date Time Temp Pulse Resp B/P Pulse Ox O2 Delivery O2 Flow Rate FiO2 06/10/16 10:24 20 06/10/16 09:57 Room Air 06/10/16 09:52 88 125/64 06/10/16 06:34 97.0 92 I&O- Last 24 Hours up to 6 AM 06/10/16 06:00 Intake Total 1040 ml Output Total 1920 ml Balance -880 ml Laboratory Data Microbiology Microbiology 05/31/16 Blood Culture - Final, Complete NO GROWTH AFTER 5 DAYS 05/31/16 Blood Culture - Final, Complete NO GROWTH AFTER 5 DAYS 06/05/16 Fungal Smear, Received Pending 06/05/16 Fungal Culture, Received Pending 06/05/16 Gram Stain - Final, Complete 06/05/16 CSF Culture - Final, Complete 05/31/16 Gram Stain - Final, Complete 05/31/16 Wound Culture - Final, Complete Citrobacter Freundii Klebsiella Pneumoniae Escherichia Hermannii JASKARAN ALEMAN MD Jun 10, 2016 12:58
[2016-06-10 14:00] VITALS: BP 127/64
--- NOTE | 2016-06-10 17:45 | IPN ---
DATE: 06/10/2016 We did a round on her today. She is alert and oriented times three. No new symptoms or findings. She is answering questions appropriately. She did remember that she has a family meeting today at 6 p.m. According to her lab work, her labs are otherwise normal with the exception of an elevated platelet count which will be managed by family care physician or hospitalist. Her vitals are stable. She has been afebrile. No new recommendations. Will followup at the family conference robert at [address] Kumari was present during the rounds.
[2016-06-10] MEDS: SERTRALINE HCL 50 MG TAB PO SCH (21:39)
[2016-06-10] MEDS: NICOTINE 7 MG/24 HR TRANSDERMAL TD SCH (21:40)
[2016-06-10 22:00] VITALS: BP 153/70
[2016-06-11] MEDS: MEROPENEM INJ 1 GM in D5W MINI-BAG PLUS 100 ML IV SCH ×2 (05:07→13:35)
[2016-06-11 06:00] VITALS: BP 111/59
[2016-06-11] MEDS: ADVAIR DISKUS 250/50 INH PWD INH SCH ×2 (07:48→19:45)
[2016-06-11] MEDS: ENOXAPARIN 40 MG/0.4 ML SYRINGE (J1650) SC SCH (09:23)
[2016-06-11] MEDS: OMEPRAZOLE 20 MG CAP PO SCH (09:23)
[2016-06-11] MEDS: amLODIPine 5 MG TAB PO SCH (09:23)
[2016-06-11] MEDS: POTASSIUM CHLORIDE 10 MEQ SR TABLET PO SCH ×2 (09:23→20:12)
[2016-06-11] MEDS: NYSTATIN CREAM 15 GM TOP SCH ×2 (09:24→20:14)
[2016-06-11 14:00] VITALS: BP 131/57
--- NOTE | 2016-06-11 16:59 | IPN ---
DATE: 06/11/2016 Suad was seen in [address] [place] [address]. She is on intravenous (IV) meropenem, it is day #12. Dr. Summers communicated with Dr. Lao yesterday and we are anticipating infectious disease (ID) evaluation today. Plan is apparently for discharge home on oral Levaquin times 6 weeks for both infected ventriculoperitoneal (GAS GENERATOR OPERATOR) shunt as well as hepatic abscess. Reportedly there was a meeting with the family and Dr. Kumari last night, but I do not have any documentation of that currently. Neurosurgery notes indicated that she had an elevated platelet count and platelets have been normal up to this point. I do not see where anybody ordered a repeat one for today. PHYSICAL EXAMINATION: Vital signs: Stable. No fever. Blood pressure 111/59, pulse 56. She is alert and conversant and in no distress. Lungs: Clear. Heart: Regular rate, rhythm. Abdomen: Soft, nontender. Moves arms and legs with equal strength. No CBC ordered for today. PLAN: Will get a complete blood count (CBC) as there was a concern over platelet count, so repeat lab testing would seem to be in order. She has had removal of her internal-external biliary catheter stent and cholecystostomy drainage tube on 05/30/2016, it grew out small growth of numerous bacteria noted yesterday including Citrobacter, Klebsiella, and Escherichia (E) hermannii. Waiting for Dr. Lao to see the patient today and help formulate discharge plans.
[2016-06-11] MEDS: ACETAMINOPHEN TAB 650MG DOSE (2X325MG) PO PRN (20:13)
[2016-06-11] MEDS: SERTRALINE HCL 50 MG TAB PO SCH (20:13)
[2016-06-11] MEDS: NICOTINE 7 MG/24 HR TRANSDERMAL TD SCH (20:13)
--- NOTE | 2016-06-11 20:15 | IPN ---
DATE: 06/11/2016 Patient is alert and oriented times three. She was not sleeping but had her eyes closed and appeared that she was lying comfortably. She has no new symptoms or findings since yesterday. States she felt a little nauseous after dinner, but that is improving. When asked about her meeting yesterday with Dr. Kumari and the rest of her family, she states that it went well. She states she still does not know what she wants to do at this time. States she is overall feeling well. She denies any pain. States she does not have any questions at this time. Will continue to monitor her. No new recommendations at this time. Dr. Kumari was present for this round.
--- NOTE | 2016-06-11 21:04 | IPN ---
DATE: 06/11/2016 Mrs. Murcia is doing fairly well. Her only complaint is mild intermittent right upper quadrant pain. She has not required any pain medication today. She is anxious to go home. There was a meeting yesterday between Dr. Kumari and her children about her disposition. I am not sure if a decision has been made whether she could go home. For sure she is not able to go home on her own where she used to live alone. She has had no fever or chills. No nausea, vomiting or diarrhea. Temperature is 97.7, pulse 70, respirations 18, blood pressure 131/57, oxygen saturation 96% on room air. She has been afebrile for over 10 days. LABORATORY DATA: White count is 8.8, hemoglobin 12.7, hematocrit 39.5, platelets 573. ESR 43. Sodium 138, potassium 4.2, chloride 102, bicarbonate 27, BUN 18, creatinine 0.75, glucose 119, calcium 9.6, bilirubin 0.2, AST 16, ALT 21, alkaline phosphatase 82, CRP is 0.85, down from 14.7 and 21.6 10 days ago. Lumbar puncture was done on 06/05/2016, she had 15 white cells, 11 red cells, 90% lymphocytes, 2% neutrophils, 8% monocytes with glucose of 62 and total protein of 36.8. This was done under guided fluoroscopy and performed by Liborio Crespo with Dr. Mcclure, 12 mL of spinal fluid was withdrawn. There is no opening pressure that was recorded. PHYSICAL EXAMINATION: Heart: Normal S1, S2. No murmurs. Lungs are clear. No wheezes, rales, or rhonchi. Abdomen is soft, mildly tender in the right upper quadrant. The scars of where the two drains were are healed. Extremities: No clubbing, cyanosis or edema. No calf tenderness. IMPRESSION: 1. History of ventriculoperitoneal (IRON WORKER FOREMAN) shunt infection status post removal of IRON WORKER FOREMAN shunt. Currently the patient is going to be treated based on symptoms of headaches with serial lumbar puncture and there is no plan to put a IRON WORKER FOREMAN shunt at this time. 2. Hepatic abscesses with phlegmon status post removal of biliary duct drain with culture positive for Klebsiella, Citrobacter and Escherichia (E) coli. The patient has been on meropenem since 05/31/2016, which is a total of 11 days with marked improvement of symptoms. She will be switched to oral Levaquin tomorrow to finish a total of 4-week course. PLAN: From an infectious disease standpoint the patient could be switched to oral Levaquin to finish 4-week course, currently day #11 of . If at some point the decision to place a IRON WORKER FOREMAN shunt will be made, should have a normal complete blood count (CBC), C-reactive protein (CRP), sedimentation rate and repeat lumbar puncture with culture negative and normal white cells. At this point I would hold off on any invasive interventions. The patient should be able to go home with assistance of her family from infectious disease standpoint.
[2016-06-11 22:00] VITALS: BP 123/58
[2016-06-12] MEDS: LevoFLOXacin 500 MG TABLET PO SCH (05:17)
[2016-06-12 06:00] VITALS: BP 121/58
[2016-06-12 06:12] LABS: MEAN CORPUSCULAR HEMOGLOBIN 29.9 pg (27.0-33.0); MEAN CORPUSCULAR HGB CONC 32.5 g/dl (32.0-36.5); MEAN CORPUSCULAR VOLUME 92.1 fl (80.0-96.0); RED CELL DISTRIBUTION WIDTH 13.6 % (11.5-14.5); WHITE BLOOD COUNT 7.1 K/mm3 (4.0-10.0)
[2016-06-12 06:28] LABS: ALBUMIN/GLOBULIN RATIO 0.79 (1.00-1.93); ALKALINE PHOSPHATASE 77 U/L (45-117); ALT/SGPT 21 U/L (12-78); ANION GAP 8 MEQ/L (8-16); AST/SGOT 19 U/L (15-37); BILIRUBIN,TOTAL 0.2 MG/DL (0.2-1.0); BLOOD UREA NITROGEN 16 MG/DL (7-18); CALCIUM LEVEL 9.5 MG/DL (8.8-10.2); CARBON DIOXIDE LEVEL 27 MEQ/L (21-32); CHLORIDE LEVEL 107 MEQ/L (98-107); CREATININE FOR GFR 0.69 MG/DL (0.55-1.02); GLOMERULAR FILTRATION RATE > 60.0 (>39); GLUCOSE, FASTING 109 MG/DL (83-110); POTASSIUM SERUM 3.9 MEQ/L (3.5-5.1); SODIUM LEVEL 142 MEQ/L (136-145); TOTAL PROTEIN 6.8 GM/DL (6.4-8.2)
[2016-06-12] MEDS: ADVAIR DISKUS 250/50 INH PWD INH SCH ×2 (07:21→20:58)
[2016-06-12] MEDS: OMEPRAZOLE 20 MG CAP PO SCH (09:27)
[2016-06-12] MEDS: POTASSIUM CHLORIDE 10 MEQ SR TABLET PO SCH ×2 (09:27→20:24)
[2016-06-12] MEDS: NYSTATIN CREAM 15 GM TOP SCH ×2 (09:27→20:24)
[2016-06-12] MEDS: ENOXAPARIN 40 MG/0.4 ML SYRINGE (J1650) SC SCH (09:28)
[2016-06-12] MEDS: amLODIPine 5 MG TAB PO SCH (09:28)
[2016-06-12 14:00] VITALS: BP 120/58
--- NOTE | 2016-06-12 17:18 | IPN ---
DATE: 06/12/2016 Suad is seen [facility]. Case discussed with Dr. Lao. At this point, patient's intravenous (IV) antibiotics have been discontinued. She has been placed on Levaquin [address] Lao thinks the patient can be safely discharged from the hospital (once disposition plans are made by patient and family services [PFS]) and then might need periodic lumbar punctures. If at some point a decision to place a ventriculoperitoneal (HOSPITALITY HOST) shunt is made, patient should have a complete blood count (CBC), C-reactive protein, and sedimentation rate, and repeat lumbar puncture that is culture negative and normal white cells prior to this procedure being performed. Advised against invasive interventions at this point. Exam is unchanged from yesterday. Patient has no fever. DISPOSITION: Waiting for PFS to set up discharge plans. Hopefully discharge tomorrow.
--- NOTE | 2016-06-12 18:42 | IPN ---
DATE: 06/12/2016 SUBJECTIVE: Mrs. Murcia seems to be doing well. She only has minimal abdominal pain. She has no fever or chills. No nausea, vomiting or diarrhea. She is doing fairly well. She is independent. She is anxious to go home but feels that none of her daughters have enough time to take care of her or want to be burdened by her being with them. OBJECTIVE: VITAL SIGNS: Temperature is 97.5, pulse 79, respirations 16, blood pressure 120/58, oxygen saturation 96% on room air. ABDOMEN: Mild tenderness in right upper quadrant. No rebound. LUNGS: Clear. No wheezes, rales or rhonchi. HEART: Normal S1, S2. No murmurs. NECK: Supple. No jugular venous distention (JVD). LABORATORY DATA: White count is 7.1, hemoglobin 11.7, hematocrit 35.9, platelets 521. ESR 43. Liver profile normal, AST 19, ALT 21. IMPRESSION: Liver abscess, status post removal of common bile duct stent with culture positive for Citrobacter, Klebsiella and Escherichia hermannii. The patient currently on levofloxacin day one. PLAN She will remain on the Levaquin for total of three weeks till July 02. The patient could be discharged home as long as there is a safe discharge. We will consult patient and family services (PFS). Case has been discussed with Dr. Butcher. Dr. Lao signing off. I will see the patient in followup in 2-3 weeks. GINGER
--- NOTE | 2016-06-12 18:52 | IPN ---
DATE: 06/12/2016 Patient appears to be doing very well today. She is sitting up comfortably in her chair. She is alert and oriented times three. She was able to remember me and, in fact, recalled my name appropriately. She seemed excited about the talk of a discharge within the next day or two. She denies any new symptoms. No new findings for today. Lab work is noted. Patient does not have any further questions. Dr. Kumari was present for this round.
[2016-06-12] MEDS: NICOTINE 7 MG/24 HR TRANSDERMAL TD SCH (20:24)
[2016-06-12] MEDS: SERTRALINE HCL 50 MG TAB PO SCH (20:24)
[2016-06-12] MEDS: ACETAMINOPHEN TAB 650MG DOSE (2X325MG) PO PRN (20:24)
[2016-06-12 22:00] VITALS: BP 129/65
[2016-06-13] MEDS: ACETAMINOPHEN TAB 650MG DOSE (2X325MG) PO PRN ×2 (03:15→13:12)
[2016-06-13] MEDS: LevoFLOXacin 500 MG TABLET PO SCH (05:43)
[2016-06-13 06:00] VITALS: BP 124/58
[2016-06-13] MEDS: ADVAIR DISKUS 250/50 INH PWD INH SCH ×2 (08:43→20:22)
[2016-06-13] MEDS: OMEPRAZOLE 20 MG CAP PO SCH (09:27)
[2016-06-13] MEDS: amLODIPine 5 MG TAB PO SCH (09:28)
[2016-06-13] MEDS: ENOXAPARIN 40 MG/0.4 ML SYRINGE (J1650) SC SCH (09:28)
[2016-06-13] MEDS: POTASSIUM CHLORIDE 10 MEQ SR TABLET PO SCH ×2 (09:28→20:27)
[2016-06-13] MEDS: NYSTATIN CREAM 15 GM TOP SCH ×2 (09:29→20:27)
--- NOTE | 2016-06-13 12:03 | DSES ---
DATE OF ADMISSION: 05/02/2016 DATE OF TRANSFER: Transfer to alternate level of care ([facility]) status. PRIMARY CARE PROVIDER: Dr. Bertha Currie ATTENDING PHYSICIAN: Dr. Deshawn Butcher CONSULTANTS: Dr. Kumari, Dr. Lao, Dr. Urbina, Dr. Cornejo, Dr. Centeno. HISTORY OF PRESENT ILLNESS: Suad Murcia is a 70-year-old female patient of Dr. Currie who was admitted on 05/02/2016 for hydrocephalus and metabolic encephalopathy. The patient previously had been hospitalized in February and transferred to [facility] for further treatment for abdominal pain with microperforation of the distal terminal ileum and for CARAMEL MAKER shunt. She was at [facility] for many weeks and then transferred to [facility] and was apparently discharged on 04/26/2016. Due to increasing unsteadiness and fevers, she presented to the emergency room on 05/02/2016 and was admitted for hydrocephalus secondary to CARAMEL MAKER shunt for fevers and for metabolic encephalopathy. Dr. Lao from infectious disease and Dr. Kumari from neurosurgery were consulted. It was felt the patient had a malfunction of the CARAMEL MAKER shunt with probable infection. Lumbar puncture she did show Staphylococcus epidermitis in cerebrospinal fluid. The patient was started initially with IV vancomycin. Meropenem was later added. The patient did undergo CARAMEL MAKER shunt removal by Dr. Kumari on 05/10/2016. Question was whether or not to replace the shunt. It was felt the patient would be treated based on symptoms of headaches with serial lumbar punctures by Dr. Kumari, and at present time there is no plan to put a new CARAMEL MAKER shunt in at this time. Dr. Lao does feel that the patient did complete a long course of vancomycin, which was eventually discontinued. Dr. Lao reports that if at some point a decision is made to replace the CARAMEL MAKER shunt, the patient should have a normal CBC, CRP, sedimentation rate, and repeat lumbar puncture with culture negative and normal white cells. Dr. Lao advises to hold off on any invasive interventions at present time. Additionally, during the course of hospitalization, the patient was also found to have common bile duct obstruction and cholecystitis. She had previously had tubes placed. She was seen by Dr. Urbina, Dr. Cornejo and Dr. Centeno. The tubes were eventually removed. She was found to have hepatic abscess with phlegmon, status post removal of biliary duct drains. Cultures were positive for Klebsiella pneumoniae, Citrobacter freundii and Escherichia hermanii. Dr. Lao also lists Escherichia (E) coli . She was treated with a long course of meropenem, which was then changed to Levaquin with plans to finish a 4-week course. According to Dr. Lao's notes, the patient should remain on the Levaquin until July 02. The patient will need to followup with Dr. Lao, as well as followup with Dr. Kumari for possible serial lumbar punctures. Patient and family services (PFS) has been working with the patient and family and it is not felt the patient is able to go home on her own and she will need assisted living. She will be made SNF status today. MEDICATIONS: Will be listed at time of actual discharge. PHYSICAL EXAMINATION: Vitals: Temperature 97.4, pulse 90, respiratory rate 16, blood pressure is 123/64, pulse oximetry 94% on room air. GENERAL: The patient is alert, no acute distress. CHEST: Clear to auscultation bilaterally. HEART: Regular rate and rhythm. ABDOMEN: Positive bowel sounds, soft, nontender. EXTREMITIES: No clubbing, cyanosis or edema. DIAGNOSES: 1. History of CARAMEL MAKER shunt infection and status post removal of CARAMEL MAKER shunt. 2. Hepatic abscess with phlegmon status post removal of biliary ducts drain. 3. Metabolic encephalopathy. 4. Chronic obstructive pulmonary disease (COPD). 5. Hypertension. 6. History of cerebral aneurysm.
[2016-06-13 14:00] VITALS: BP 141/73
[2016-06-13] MEDS: SERTRALINE HCL 50 MG TAB PO SCH (20:27)
[2016-06-13] MEDS: NICOTINE 7 MG/24 HR TRANSDERMAL TD SCH (20:27)
--- NOTE | 2016-06-13 20:54 | IPN ---
DATE: 06/13/2016 Patient was seen at bed side today. She appears to be doing very well. She is lying comfortably in her bed. She is alert and oriented times three. She was able to recall my name correctly. She denies any new symptoms. No new findings on exam. Lab work is noted. Patient does not have any further questions. Dr. Kumari was present for this visit.
[2016-06-13 22:00] VITALS: BP 136/63
[2016-06-14] MEDS: ACETAMINOPHEN TAB 650MG DOSE (2X325MG) PO PRN (05:01)
[2016-06-14] MEDS: LevoFLOXacin 500 MG TABLET PO SCH (05:01)
[2016-06-14 06:00] VITALS: BP 134/59
[2016-06-14] MEDS: ADVAIR DISKUS 250/50 INH PWD INH SCH ×2 (08:39→20:18)
[2016-06-14] MEDS: ENOXAPARIN 40 MG/0.4 ML SYRINGE (J1650) SC SCH (09:51)
[2016-06-14] MEDS: NYSTATIN CREAM 15 GM TOP SCH ×2 (09:52→20:08)
[2016-06-14] MEDS: POTASSIUM CHLORIDE 10 MEQ SR TABLET PO SCH ×2 (09:52→20:07)
[2016-06-14] MEDS: amLODIPine 5 MG TAB PO SCH (09:52)
[2016-06-14] MEDS: OMEPRAZOLE 20 MG CAP PO SCH (09:52)
[2016-06-14] MEDS ORDERED: TUBERCULIN PPD 5 UNITS/0.1 ML ID ONE (16:00)
[2016-06-14] MEDS: SERTRALINE HCL 50 MG TAB PO SCH (20:07)
[2016-06-14] MEDS: NICOTINE 7 MG/24 HR TRANSDERMAL TD SCH (20:08)
[2016-06-15 05:05] VITALS: BP 141/65
[2016-06-15] MEDS: LevoFLOXacin 500 MG TABLET PO SCH (05:25)
[2016-06-15] MEDS: ADVAIR DISKUS 250/50 INH PWD INH SCH ×2 (07:27→19:56)
[2016-06-15] MEDS: amLODIPine 5 MG TAB PO SCH (09:00)
[2016-06-15] MEDS: ENOXAPARIN 40 MG/0.4 ML SYRINGE (J1650) SC SCH (09:17)
[2016-06-15] MEDS: OMEPRAZOLE 20 MG CAP PO SCH (09:18)
[2016-06-15] MEDS: NYSTATIN CREAM 15 GM TOP SCH ×2 (09:18→20:14)
[2016-06-15] MEDS: POTASSIUM CHLORIDE 10 MEQ SR TABLET PO SCH ×2 (09:18→20:14)
[2016-06-15] MEDS: ACETAMINOPHEN TAB 650MG DOSE (2X325MG) PO PRN ×2 (11:27→20:15)
[2016-06-15] MEDS: NICOTINE 7 MG/24 HR TRANSDERMAL TD SCH (20:15)
[2016-06-15] MEDS: SERTRALINE HCL 50 MG TAB PO SCH (20:15)
[2016-06-16 05:15] VITALS: BP 140/69
[2016-06-16] MEDS: LevoFLOXacin 500 MG TABLET PO SCH (05:47)
[2016-06-16] MEDS: ADVAIR DISKUS 250/50 INH PWD INH SCH ×2 (07:21→19:42)
[2016-06-16] MEDS: ENOXAPARIN 40 MG/0.4 ML SYRINGE (J1650) SC SCH (09:32)
[2016-06-16] MEDS: OMEPRAZOLE 20 MG CAP PO SCH (09:33)
[2016-06-16] MEDS: POTASSIUM CHLORIDE 10 MEQ SR TABLET PO SCH ×2 (09:33→20:12)
[2016-06-16] MEDS: amLODIPine 5 MG TAB PO SCH (09:33)
[2016-06-16] MEDS: NYSTATIN CREAM 15 GM TOP SCH ×2 (09:34→20:14)
[2016-06-16] MEDS: ACETAMINOPHEN TAB 650MG DOSE (2X325MG) PO PRN (10:11)
[2016-06-16] MEDS ORDERED: PPD DOCUMENTATION ENTRY MISC XX SCH (14:00)
[2016-06-16] MEDS: SERTRALINE HCL 50 MG TAB PO SCH (20:12)
[2016-06-16] MEDS: NICOTINE 7 MG/24 HR TRANSDERMAL TD SCH (20:13)
[2016-06-17] MEDS: LevoFLOXacin 500 MG TABLET PO SCH (05:16)
[2016-06-17 06:00] VITALS: BP 143/62
[2016-06-17] MEDS: OMEPRAZOLE 20 MG CAP PO SCH (09:29)
[2016-06-17] MEDS: ENOXAPARIN 40 MG/0.4 ML SYRINGE (J1650) SC SCH (09:30)
[2016-06-17] MEDS: POTASSIUM CHLORIDE 10 MEQ SR TABLET PO SCH ×2 (09:30→20:37)
[2016-06-17] MEDS: ADVAIR DISKUS 250/50 INH PWD INH SCH ×2 (09:30→19:34)
[2016-06-17] MEDS: amLODIPine 5 MG TAB PO SCH (09:31)
[2016-06-17] MEDS: NYSTATIN CREAM 15 GM TOP SCH ×2 (09:31→20:37)
--- NOTE | 2016-06-17 16:16 | IPNPDOC ---
Subjective Date Seen The patient was seen on 06/17/16. Subjective Chief Complaint/HPI The patient is a 70-year-old female admitted with a reason for visit of Metabolic Encephalopathy. Events since last encounter Patient is awaiting placement in Assisted Living facility. She states she sometimes gets confused about what time of day it is when she wakes up, but otherwise denies confusion. Constitutional: Denies: Chills, Fever ENT: Denies: Head Aches Skin: Denies: Rash Pulmonary: Denies: Cough, Dyspnea Cardiovascular: Denies: Chest Pain Gastrointestinal: Denies: Abdominal Pain, Diarrhea, Nausea, Vomiting Genitourinary: Denies: Dysuria Neurological: Denies: Numbness, Weakness Objective Physical Examination General Exam: Positive: Alert, No Acute Distress Eye Exam: Negative: Sclera icteric ENT Exam: Positive: Mucous membr. moist/pink, Pharynx Normal Neck Exam: Positive: Supple, Negative: JVD, thyromegaly Chest Exam: Positive: Clear to auscultation Heart Exam: Positive: Normal S1, Normal S2, Rate Normal, Regular Rhythm, Negative: Murmurs, Rubs Abdomen Exam: Positive: Hernia (midline incisional hernia, soft, non-tender), Normal bowel sounds, Other, Soft, Negative: Hepatospenomegaly, Tenderness Extremity Exam: Positive: Normal pulses, Negative: Clubbing, Cyanosis, Edema Skin Exam: Positive: Nl turgor and temperature, Negative: Breakdown Neuro Exam: Positive: Cranial Nerves 3-12 NL, Normal Speech Psych Exam: Positive: Oriented x 3 Assessment /Plan Problems (1) Infection of FACING BASTER (ventriculoperitoneal) shunt Status: Acute Problem Text: S/p removal of FACING BASTER shunt. Awaiting placement at Assisted Living, which [facility] is working on. Per Dr. Lao's notes, levofloxacin is to be continued until 07/02/2016. Patient states she does not think she wants to have FACING BASTER shunt replaced. Per discharge summary, Dr. Kumari will consider repeating LP in the future based on symptoms. (2) Hepatic abscess Status: Acute Problem Text: Currently on PO levofloxacin until 07/02/[address] Lao. Hepatic abscess/phlegmon visualized on CT abdomen and pelvis 06/01/16. At the time of the CT, the phlegmon did not have a drainable collection. RUQ drain cx CITROBACTER FREUNDII, KLEBSIELLA PNEUMONIAE, ESCHERICHIA HERMANNII. (3) Common bile duct (CBD) obstruction Status: Acute Problem Text: Abdominal exam benign today. S/P percutaneous transhepatic cholangiogram 05/07/16, distal CBD stricture biopsy (benign by pathology), CBD stone removal and internal-external biliary drainage catheter placement by Dr. Centeno. Removed cholecystectomy tube 05/30/16. RUQ drain cx CITROBACTER FREUNDII, KLEBSIELLA PNEUMONIAE, ESCHERICHIA HERMANNII. . (4) Incisional hernia Status: Chronic Problem Text: Questionable incisional hernia. No current symptoms. (5) Metabolic encephalopathy Status: Resolved Response to Treatment: Stable Problem Text: Improved with minimal confusion at present. (6) COPD (chronic obstructive pulmonary disease) Status: Chronic Response to Treatment: Stable Problem Text: Respiratory status stable. (7) Hypertension Status: Chronic Problem Text: 05/20 - Amlodipine was decreased to 5 mg daily. (8) Cerebral aneurysm Permanent Comment: s/p ICA/basilar coiling, s/p FACING BASTER shunt 2014 Last Edited By: Yoseph Medina MD on May 10, 2016 13:40 Status: Chronic Response to Treatment: Stable Problem Text: S/P ICA/Basilar coiling and FACING BASTER shunt 2014. (9) S/P splenectomy Status: Chronic Response to Treatment: Stable Problem Text: obviously higher sepsis risk Plan/VTE VTE Prophylaxis Ordered?: Yes (Lovenox (06/05/16 held for LP)) Plan Therapy: PT, OT VS, I&O, 24H, Fishbone Vital Signs/I&O Vital Signs Date Time Temp Pulse Resp B/P Pulse Ox O2 Delivery O2 Flow Rate FiO2 06/17/16 09:31 77 143/62 06/17/16 08:00 Room Air 06/17/16 06:00 96.7 16 95 I&O- Last 24 Hours up to 6 AM 06/17/16 05:59 Intake Total 1200 ml Output Total 1300 ml Balance -100 ml AMELIA RYAN MD Jun 17, 2016 16:16
[2016-06-17] MEDS: NICOTINE 7 MG/24 HR TRANSDERMAL TD SCH (20:37)
[2016-06-17] MEDS: SERTRALINE HCL 50 MG TAB PO SCH (20:37)
[2016-06-18] MEDS: LevoFLOXacin 500 MG TABLET PO SCH (05:27)
[2016-06-18] MEDS: ADVAIR DISKUS 250/50 INH PWD INH SCH ×2 (07:22→19:54)
[2016-06-18] MEDS: POTASSIUM CHLORIDE 10 MEQ SR TABLET PO SCH ×2 (09:27→20:39)
[2016-06-18] MEDS: OMEPRAZOLE 20 MG CAP PO SCH (09:27)
[2016-06-18] MEDS: amLODIPine 5 MG TAB PO SCH (09:27)
[2016-06-18] MEDS: ENOXAPARIN 40 MG/0.4 ML SYRINGE (J1650) SC SCH (09:28)
[2016-06-18] MEDS: NYSTATIN CREAM 15 GM TOP SCH ×2 (09:28→20:39)
[2016-06-18] MEDS: SERTRALINE HCL 50 MG TAB PO SCH (20:39)
[2016-06-18] MEDS: NICOTINE 7 MG/24 HR TRANSDERMAL TD SCH (20:40)
[2016-06-19] MEDS: LevoFLOXacin 500 MG TABLET PO SCH (05:16)
[2016-06-19] MEDS: ACETAMINOPHEN TAB 650MG DOSE (2X325MG) PO PRN ×2 (08:23→18:29)
[2016-06-19] MEDS: amLODIPine 5 MG TAB PO SCH (08:23)
[2016-06-19] MEDS: OMEPRAZOLE 20 MG CAP PO SCH (08:23)
[2016-06-19] MEDS: POTASSIUM CHLORIDE 10 MEQ SR TABLET PO SCH ×2 (08:23→21:48)
[2016-06-19] MEDS: ENOXAPARIN 40 MG/0.4 ML SYRINGE (J1650) SC SCH (08:24)
[2016-06-19] MEDS: NYSTATIN CREAM 15 GM TOP SCH ×2 (08:24→21:49)
[2016-06-19] MEDS: ADVAIR DISKUS 250/50 INH PWD INH SCH ×2 (08:40→20:29)
[2016-06-19] MEDS: SERTRALINE HCL 50 MG TAB PO SCH (21:48)
[2016-06-19] MEDS: NICOTINE 7 MG/24 HR TRANSDERMAL TD SCH (21:48)
[2016-06-20] MEDS: ACETAMINOPHEN TAB 650MG DOSE (2X325MG) PO PRN (05:39)
[2016-06-20] MEDS: LevoFLOXacin 500 MG TABLET PO SCH (05:39)
[2016-06-20] MEDS ORDERED: POTA10CA PO (06:32)
[2016-06-20] MEDS ORDERED: NICO7PA TD (06:32)
[2016-06-20] MEDS ORDERED: LEVA500T PO (06:32)
[2016-06-20] MEDS ORDERED: AMLO5TAB2 PO (06:32)
[2016-06-20 06:52] VITALS: BP 124/72
[2016-06-20] MEDS: ADVAIR DISKUS 250/50 INH PWD INH SCH (07:17)
[2016-06-20] MEDS: ENOXAPARIN 40 MG/0.4 ML SYRINGE (J1650) SC SCH (09:47)
[2016-06-20 09:48] VITALS: BP 120/61
[2016-06-20] MEDS: OMEPRAZOLE 20 MG CAP PO SCH (09:48)
[2016-06-20] MEDS: POTASSIUM CHLORIDE 10 MEQ SR TABLET PO SCH (09:48)
[2016-06-20] MEDS: amLODIPine 5 MG TAB PO SCH (09:48)
[2016-06-20] MEDS: NYSTATIN CREAM 15 GM TOP SCH (09:48)
[2016-06-20 11:04] LABS: CSF AMYLOID BETA PROTEIN SEE SEPARATE REPORT; CSF PHOSPHORYLATED-TAU PROTEIN SEE SEPARATE REPORT; CSF TOTAL-TAU PROTEIN SEE SEPARATE REPORT
--- NOTE | 2016-06-20 22:54 | IPN ---
DATE: 06/19/2016 Patient seen at bed side today. She is sitting comfortably in her chair. Patient is alert. She reports no new symptoms today. She was able to remember my name. States that she has been up walking, however not today. She has been using her walker and with nurse assistance. No falls have been noted since the . No new neuro focal deficits noted. According to her lab work, her CSF proteins are still pending. Patient has been afebrile. Other labs are noted. PLAN: Will continue to monitor. No new recommendations at this time.
--- NOTE | 2016-06-21 00:25 | DSES ---
DATE OF ADMISSION: 05/02/2016 DATE OF DISCHARGE: 06/20/2016 ADDENDUM: The patient was [facility] status on 06/13/2016. Since that time, she was stable, had no major changes in her medications or medical problems. She was discharged in stable condition to [facility] nursing on 06/20/2016. DISCHARGE MEDICATIONS: 1. Amlodipine 5 mg by mouth daily. 2. Levofloxacin 500 mg by mouth daily for 12 additional days, take last dose on 07/02/2016. 3. Nicoderm 7 mg per 24 hour patch nightly. 4. Potassium chloride 20 mEq twice daily. 5. Acetaminophen 650 mg every 4 hours as needed for pain or fever. 6. Docusate/Senna 8.6/50 mg one tablet by mouth every evening as needed for constipation. 7. Melatonin 5 mg by mouth every night as needed for sleep. 8. Omeprazole 20 mg by mouth daily. 9. Ondansetron 4 mg every 6 hours by mouth as needed for nausea or vomiting. 10. Advair Diskus 250/50 mcg per dose one puff by inhalation twice daily. 11. Sertraline 50 mg by mouth nightly. 12. Tramadol 50 mg by mouth every 6 hours as needed for pain. Per Dr. Lao, the patient should continue on levofloxacin until 07/02/2016. The patient should followup with Dr. Kumari as an outpatient.
== END 2016-06-20 11:58 | DRG 25 ==
LOC: M ED 21:47 → M ED INP 05-02 05:50 → M MSPAV 05-02 08:13 → M PCU 05-10 18:00 → M ICU 05-10 21:58 → M MSPAV 05-24 14:47
PROVIDERS: ADMIT Internal Medicine; ATTEND Family Medicine
PROC: 0DJ08ZZ Inspection of Upper Intestinal Tract, Via Natural or Artificial Opening Endoscopic (ICD-10-PCS; 2016-05-06)
PROC: 0F9930Z Drainage of Common Bile Duct with Drainage Device, Percutaneous Approach (ICD-10-PCS; 2016-05-07)
PROC: 0FC93ZZ Extirpation of Matter from Common Bile Duct, Percutaneous Approach (ICD-10-PCS; 2016-05-07)
PROC: 0FB93ZX Excision of Common Bile Duct, Percutaneous Approach, Diagnostic (ICD-10-PCS; 2016-05-07)
PROC: 0WPG00Z Removal of Drainage Device from Peritoneal Cavity, Open Approach (ICD-10-PCS; 2016-05-10)
PROC: 05HB33Z Insertion of Infusion Device into Right Basilic Vein, Percutaneous Approach (ICD-10-PCS; 2016-05-13)
PROC: 00P Central Nervous System and Cranial Nerves, Removal (ICD-10-PCS; principal; 2016-05-17 20:35)
PROC: 009U3ZX Drainage of Spinal Canal, Percutaneous Approach, Diagnostic (ICD-10-PCS; 2016-05-20)
PROC: 0FP430Z Removal of Drainage Device from Gallbladder, Percutaneous Approach (ICD-10-PCS; 2016-05-30)
PROC: 0FPB30Z Removal of Drainage Device from Hepatobiliary Duct, Percutaneous Approach (ICD-10-PCS; 2016-05-30)
PROC: 009U3ZX Drainage of Spinal Canal, Percutaneous Approach, Diagnostic (ICD-10-PCS; 2016-06-05)
DX: T85.730A Infection and inflammatory reaction due to ventricular intracranial (communicating) shunt, initial encounter (principal); G93.41 Metabolic encephalopathy; K83.1 Obstruction of bile duct; K75.0 Abscess of liver; G91.9 Hydrocephalus, unspecified; F17.213 Nicotine dependence, cigarettes, with withdrawal; R50.9 Fever, unspecified; M81.0 Age-related osteoporosis without current pathological fracture; I10 Essential (primary) hypertension; J44.9 Chronic obstructive pulmonary disease, unspecified; K21.9 Gastro-esophageal reflux disease without esophagitis; M19.90 Unspecified osteoarthritis, unspecified site; I67.1 Cerebral aneurysm, nonruptured; F32.9 Major depressive disorder, single episode, unspecified; Y83.1 Surgical operation with implant of artificial internal device as the cause of abnormal reaction of the patient, or of later complication, without mention of misadventure at the time of the procedure; H40.9 Unspecified glaucoma; K52.9 Noninfective gastroenteritis and colitis, unspecified; B95.8 Unspecified staphylococcus as the cause of diseases classified elsewhere; B96.1 Klebsiella pneumoniae [K. pneumoniae] as the cause of diseases classified elsewhere; B96.20 Unspecified Escherichia coli [E. coli] as the cause of diseases classified elsewhere; B96.89 Other specified bacterial agents as the cause of diseases classified elsewhere; Z79.891 Long term (current) use of opiate analgesic; Z88.5 Allergy status to narcotic agent; Z88.0 Allergy status to penicillin; Z88.2 Allergy status to sulfonamides; Z88.8 Allergy status to other drugs, medicaments and biological substances; Z79.51 Long term (current) use of inhaled steroids; Z79.899 Other long term (current) drug therapy

== ENCOUNTER → 2016-06-25 | Outpatient (REF) ==
[~2016-06-25] MED LIST changes: +AMLO5TAB2 PO; +LEVA500T PO; +MELA5TAB14 PO; +NICO7PA TD; +OMEP20TA PO; +POTA10CA PO; +TRAM50TA2 PO
[2016-06-25 11:14] LABS: MEAN CORPUSCULAR HGB CONC 32.5 g/dl (32.0-36.5); MEAN CORPUSCULAR VOLUME 92.3 fl (80.0-96.0); RED CELL DISTRIBUTION WIDTH 13.8 % (11.5-14.5); WHITE BLOOD COUNT 8.4 K/mm3 (4.0-10.0)
[2016-06-25 11:24] LABS: ALBUMIN 3.5 GM/DL (3.2-5.2); ALBUMIN/GLOBULIN RATIO 0.95 (1.00-1.93); ALKALINE PHOSPHATASE 80 U/L (45-117); ALT/SGPT 16 U/L (12-78); ANION GAP 11 MEQ/L (8-16); AST/SGOT 14 U/L (15-37); BILIRUBIN,DIRECT < 0.1 MG/DL (0.0-0.2); BILIRUBIN,TOTAL 0.4 MG/DL (0.2-1.0); BLOOD UREA NITROGEN 17 MG/DL (7-18); CALCIUM LEVEL 9.6 MG/DL (8.8-10.2); CARBON DIOXIDE LEVEL 27 MEQ/L (21-32); CHLORIDE LEVEL 104 MEQ/L (98-107); CREATININE FOR GFR 0.89 MG/DL (0.55-1.02); GLOMERULAR FILTRATION RATE > 60.0 (>39); GLUCOSE, FASTING 87 MG/DL (83-110); POTASSIUM SERUM 3.7 MEQ/L (3.5-5.1); SODIUM LEVEL 142 MEQ/L (136-145); TOTAL PROTEIN 7.2 GM/DL (6.4-8.2)
== END ==
PROVIDERS: ATTEND Internal Medicine
DX: K75.0 Abscess of liver (principal)

== ENCOUNTER → 2016-07-02 | Outpatient (REF) ==
[2016-07-02 10:19] LABS: MEAN CORPUSCULAR HEMOGLOBIN 29.9 pg (27.0-33.0); MEAN CORPUSCULAR HGB CONC 32.7 g/dl (32.0-36.5); MEAN CORPUSCULAR VOLUME 91.5 fl (80.0-96.0); RED CELL DISTRIBUTION WIDTH 13.6 % (11.5-14.5)
[2016-07-02 10:31] LABS: ANION GAP 10 MEQ/L (8-16); BLOOD UREA NITROGEN 15 MG/DL (7-18); CALCIUM LEVEL 9.9 MG/DL (8.8-10.2); CARBON DIOXIDE LEVEL 22 MEQ/L (21-32); CHLORIDE LEVEL 108 MEQ/L (98-107); CREATININE FOR GFR 0.86 MG/DL (0.55-1.02); GLOMERULAR FILTRATION RATE > 60.0 (>39); GLUCOSE, FASTING 104 MG/DL (83-110); POTASSIUM SERUM 3.5 MEQ/L (3.5-5.1); SODIUM LEVEL 140 MEQ/L (136-145)
== END ==
PROVIDERS: ATTEND Internal Medicine
DX: K75.0 Abscess of liver (principal)

== ENCOUNTER 2016-07-05 11:56 | Emergency (ER) | payer MEDICAID, MEDICARE ==
[~2016-07-05] VITALS: Ht 152.4 cm; Wt 45.4 kg
--- NOTE | 2016-07-05 12:59 | REP ---
Clinical: Trauma. Fall. Technique: AP, lateral, bilateral oblique and sunrise views of the right knee. Findings: Osteopenia and age-related arthritic degenerative changes are appreciated. Prepatellar swelling and effusion cannot be excluded. No acute fracture or dislocation. Impression: Swelling and possible effusion. No acute fracture or dislocation. Signed by Cordell Ramos MD 07/05/2016 12:50 P
--- NOTE | 2016-07-05 13:09 | REP ---
CT HEAD WITHOUT CONTRAST: HISTORY: Fall. COMPARISON: 06/01/2016 The patient is status post aneurysm coiling. Areas of decreased attenuation are present in the periventricular and subcortical white matter. This represents small vessel ischemic disease. There is no intraparenchymal hemorrhage, mass, or midline shift. There is dilatation of the third and lateral ventricles, unchanged compared to the previous study. There is no extracerebral collection. There is no fracture. A chencho hole is present in the right frontal bone. Mucosal thickening is present in the left mastoid air cells. The visualized sinuses are clear. IMPRESSION: 1. Small vessel ischemic disease. 2. Mild hydrocephalus, unchanged compared to the previous study. Signed by Fritz Mcclure MD 07/05/2016 01:13 P
[2016-07-05 13:43] VITALS: BP 124/64
[2016-07-15] MEDS ORDERED: LEVA750T PO (16:18)
[2016-07-15] MEDS ORDERED: TRAM50TA2 PO (16:18)
[2016-07-15] MEDS ORDERED: MULT1TAB10 PO (16:18)
[2016-07-15] MEDS ORDERED: COUM2TAB10 PO (16:18)
[2016-07-15] MEDS ORDERED: WARF4TAB52 PO (17:45)
[2016-07-15] MEDS ORDERED: TUBE5INJ9 ID (17:56)
[2016-07-15] MEDS ORDERED: ACET-654 PO (17:56)
[2016-07-15] MEDS ORDERED: VITMTA PO (17:56)
== END 2016-07-05 13:47 | disposition home or self-care (01) ==
LOC: EDBD 11:56 → M ED 13:21
DX: S80.01XA Contusion of right knee, initial encounter (principal); W01.0XXA Fall on same level from slipping, tripping and stumbling without subsequent striking against object, initial encounter; Y92.018 Other place in single-family (private) house as the place of occurrence of the external cause; Y93.89 Activity, other specified; Y99.8 Other external cause status; G91.9 Hydrocephalus, unspecified; I10 Essential (primary) hypertension; F33.9 Major depressive disorder, recurrent, unspecified; G43.909 Migraine, unspecified, not intractable, without status migrainosus; Z87.19 Personal history of other diseases of the digestive system; Z87.09 Personal history of other diseases of the respiratory system; Z86.73 Personal history of transient ischemic attack (TIA), and cerebral infarction without residual deficits; Z98.2 Presence of cerebrospinal fluid drainage device; Z79.899 Other long term (current) drug therapy; Z88.0 Allergy status to penicillin; Z88.2 Allergy status to sulfonamides; Z88.5 Allergy status to narcotic agent

== ENCOUNTER 2016-07-09 22:52 | Inpatient (IN) | payer MEDICARE ==
[~2016-07-09] VITALS: Ht 154.9 cm; Wt 49.9 kg
[~2016-07-09 22:52] MED LIST changes: -BISA10SU4 PR; -BISA10SU5 PR; -ENEMENE3 PR; -LEVA750T PO; -NICO7DIS23 TD; -ONDA4TAB6 PO
[2016-07-09] MEDS ORDERED: BISA10SU5 PR (23:12)
[2016-07-09] MEDS ORDERED: fentaNYL 100 MCG/2 ML INJECTION (J3010) IV ONE (23:15)
[2016-07-09] MEDS ORDERED: ONDANSETRON 4MG/2ML VIAL (J2405) IV ONE (23:15)
[2016-07-09 23:57] LABS: BASO % 0.4 % (0.0-1.0); EOS # 0.3 K/mm3 (0.0-0.50); EOS % 3.1 % (0.0-3.0); LARGE UNSTAINED CELL # 0.3 K/mm3 (0.0-0.4); LARGE UNSTAINED CELL % 2.3 % (0.0-4.0); LYMPH # 3.8 K/mm3 (1.5-4.5); LYMPH % 32.9 % (24.0-44.0); MEAN CORPUSCULAR HEMOGLOBIN 29.5 pg (27.0-33.0); MEAN CORPUSCULAR VOLUME 89.6 fl (80.0-96.0); MONO # 0.8 K/mm3 (0.0-0.8); MONO % 7.2 % (0.0-5.0); NEUTROPHILS # 5.8 K/mm3 (1.8-7.7); PLATELET COUNT, AUTOMATED 320 k/mm3 (150-450); RED CELL DISTRIBUTION WIDTH 13.5 % (11.5-14.5); WHITE BLOOD COUNT 10.7 K/mm3 (4.0-10.0)
--- NOTE | 2016-07-10 00:10 | REPUSA ---
CT of the head Clinical history: trauma. Comparison: 05/04/2016. Protocol: Multiple axial CT images obtained with 5 mm slice thickness were obtained through the head without administration of contrast. Findings: The ventricles and sulci are symmetric but prominent in size bilaterally. There are periven tricular areas of low attenuation throughout the deep white matter. There is no evidence of acute hem orrhage or infarct. There is no midline shift, mass effect, or extra-axial fluid collection. The osse ous structures are unremarkable. The visualized paranasal sinuses and mastoid air cells are clear. An eurysm clips are seen in the region of the [place]. The right-sided ventricular shunt cathet er has been removed. Impression: No acute hemorrhage or infarct. Findings are consistent with moderate age-related atrophy and chronic small vessel ischemic disease.
--- NOTE | 2016-07-10 00:20 | REPUSA ---
CT of the cervical spine Clinical history: Pain. Trauma. Technique: Multiple axial CT images were obtained through the cervical spine without administration o f contrast. Coronal and sagittal 3-D reconstructed images were also obtained. Comparison: None. Findings: The cervical vertebral bodies are in satisfactory positioning and alignment. No fractures or dislocat ions are demonstrated. The odontoid process is intact. Intervertebral disc spaces are well-maintained . Mild bilateral facet arthropathy is appreciated. There is no evidence of facet subluxation. The paras ral foramen appear grossly patent. The cervical cranial junction is intact. The cervical spinal canal demonstrates normal caliber and contour without evidence of spinal stenosis. The surrounding soft ti ssues are within normal limits. Impression: No acute fracture or traumatic injury. Mild bilateral facet arthropathy.
--- NOTE | 2016-07-10 00:30 | REPUSA ---
CT of the pelvis without contrast Clinical statement: Pain. Right hip fracture. Technique: Multiple axial CT images were obtained from the iliac crests to the floor of the pelvis ut ilizing 5 mm axial slices without administration of contrast. Coronal and sagittal reconstructions we re also obtained. No comparison is available. Findings: The bowel is unremarkable, with no obstructive or inflammatory changes. The urinary bladder is within normal limits. There is no pelvic lymphadenopathy or ascites. The other pelvic structures appear unr emarkable. There is a subacute healing fracture of the right femoral neck. No acute fractures are job ntified. There are no suspicious osseous abnormalities seen. Impression: 1. No acute traumatic abnormality. 2. Healing right femoral neck fracture, in satisfactory position and alignment. 3. No intra-abdominal abnormality appreciated.
[2016-07-10] MEDS ORDERED: fentaNYL 100 MCG/2 ML INJECTION (J3010) IV ONE (01:00)
[2016-07-10] MEDS ORDERED: NS 1,000 ML IV SCH (02:03)
[2016-07-10] MEDS ORDERED: ACETAMINOPHEN TAB 650MG DOSE (2X325MG) PO PRN ×2 (02:15→12:30)
[2016-07-10 02:25] LABS: CALCIUM LEVEL 9.7 MG/DL (8.8-10.2); CREATININE FOR GFR 0.99 MG/DL (0.55-1.02); GLOMERULAR FILTRATION RATE 58.9 (>39)
--- NOTE | 2016-07-10 02:31 | HPE ---
DATE OF ADMISSION: 07/09/2016 CHIEF COMPLAINT: Right hip pain status post fall. HISTORY OF PRESENT ILLNESS: In the evening, at approximately eight o'clock of 07/09/2016, the patient fell in her room at [facility] striking the edge of her bed with her right hip and to some extent her neck. She was able to ambulate after this, but presented to the emergency room due to persistent right hip and neck pain. She denies any loss of consciousness, denies any injury to her head, denies any neurologic changes of any kind in her bilateral upper or left extremities. She has been somewhat unsteady recently with some recent falls, which she feels is more excessive than the usual. PAST MEDICAL HISTORY: Significant for cerebral aneurysm for which she had vascular clips placed in the [place]. She is status post splenectomy as well and history of chronic obstructive pulmonary disease and hypertension. PAST SURGICAL HISTORY: As above. MEDICATIONS: Norvasc, sertraline, Advair, omeprazole, Zofran. ALLERGIES: To CODEINE, AUGMENTIN, and SULFA. She believes that the Augmentin allergy is related to clavulanic acid. SOCIAL HISTORY: Denies tobacco or alcohol use. REVIEW OF SYSTEMS: No fevers, chills, nausea, vomiting, diarrhea or constipation, chest pain, or shortness of breath. EXAMINATION: Awake, alert and oriented times three, well-appearing female in no acute distress. HEAD: Normocephalic, atraumatic. Extraocular muscles are intact. Survey examination of her right lower extremity: She has tenderness and low-grade swelling about the right hip joint. Distally, she has 2+ dorsalis pedis and posterior tibialis pulse. The extensor hallucis longus, flexor hallucis longus, tibialis anterior are intact, and she has full intact sensation throughout the right foot. There is no bony tenderness throughout the right lower extremity otherwise. The survey exam of the left lower extremity is negative, and the pelvis is stable and painfree. Bilateral upper extremities demonstrates normal fluent hand movement and is able to bring her arms and hands up behind her head comfortably. There is no sign of acute injury in the bilateral upper extremities. NECK: She is in a cervical collar. She has some low-grade tenderness and some ecchymosis which does appear to chronic about the right side of her neck. There is no palpable stepoff or deformity about the spinous processes which are nontender. X-rays of the pelvis and right hip as well as CT scan of the right hip show a somewhat valgus impacted femoral neck fracture on the right. CT scan of the head shows no acute changes. CT scan of the neck also on my view shows no acute changes. LAB RESULTS: The hemoglobin and hematocrit are 12.8 and 38.8, and platelet count is 320. She is afebrile with stable vital signs. ASSESSMENT: Impacted right femoral neck fracture, as above. PLAN: She will be admitted by the hospitalist service and medically optimized prior to planned right hip open versus percutaneous screw fixation with possible hip hemiarthroplasty or any other procedures that might be indicated. I did discuss at length the planned surgical procedures with her, the risks, benefits, and alternatives, and she did sign the surgical consent in my presence. She will have her C-spine cleared by the emergency room staff, if possible this evening, and we will plan to go forward with her surgery as soon as she is medically cleared.
[2016-07-10] MEDS ORDERED: IPRATROPIUM 0.5MG/ALBUTEROL 2.5MG INH SOL UD 3ML (DUONEB)(J7620) NEB PRN (02:45)
[2016-07-10] MEDS ORDERED: ALBUTEROL SULFATE 2.5 MG/0.5 ML INH NEB SOLN NEB PRN (02:45)
[2016-07-10] MEDS ORDERED: BISA10SU4 PR (03:05)
[2016-07-10] MEDS ORDERED: MILKSUS PO (03:05)
[2016-07-10] MEDS ORDERED: AMLO5TAB2 PO (03:05)
[2016-07-10] MEDS ORDERED: POTA10CA PO (03:05)
[2016-07-10] MEDS ORDERED: NICO7DIS23 TD (03:05)
[2016-07-10] MEDS ORDERED: ONDA4TAB6 PO (03:05)
[2016-07-10] MEDS ORDERED: ENEMENE3 PR (03:05)
--- NOTE | 2016-07-10 04:23 | HPE ---
DATE OF ADMISSION: 07/10/2016 TIME PATIENT WAS SEEN: 1 a.m. PRIMARY CARE PROVIDER: [facility], Dr. Tran PRIMARY CARE PROVIDER, OUTSIDE: Dr. Currie PATIENT IS A DO NOT RESUSCITATE (DNR), DO NOT INTUBATE (DNI). CHIEF COMPLAINT: Fell and broke her right hip. HISTORY OF PRESENT ILLNESS: 70-year-old female with past medical history of subarachnoid hemorrhage due to aneurysm, essential hypertension, chronic obstructive pulmonary disease (COPD), gastroesophageal reflux disease (GERD), transient ischemic attack (TIA), bowel perforation, tobacco use, osteoporosis, osteoarthritis, glaucoma, presented with fall and broke her right hip. Per patient, yesterday she was sitting in her bed; however, she wanted to get up and go to the bathroom. When she stood up, her bed alarm went off and she panicked and therefore, when she took a step, she tripped on a mat which appears to be boggy and she tripped and fell. She fell on her right side and also hit her neck on the side of the bed, and afterward she had difficulty moving her leg and had severe pain in her right hip and also extending into her right leg. Otherwise, she denies any fever or chills, any chest pain, trouble breathing, abdominal pain, nausea, vomiting, diarrhea, or constipation. Denies any dizziness prior to the fall. Denies any spinning sensations. She; however, also fell last week on 07/05/2016. Back then, she hit the back of her head and CT scan was negative. She was examined by Dr. Bauer, orthopedic surgeon, and found that she had a compacted right femoral neck fracture and patient had consented to surgery with Dr. Luis. Patient denies any weakness on any side of her body. Denies any vision changes, any dizziness. ALLERGIES: Patient is allergic to AUGMENTIN, makes her vomit. She also had nausea and vomiting with CODEINE. She stated that she is okay with penicillin; however, she has throat swelling from SULFA DRUGS. HOME MEDICATIONS: Includes; - acetaminophen 650 mg one tablet by mouth every four hours as needed - amlodipine 5 mg one tablet by mouth daily - Colace 10 mg per rectum - nicotine patch 17 mg topically at bedtime - omeprazole 20 mg one tablet by mouth daily - odansetron 4 mg one tablet by mouth every six hours as needed - potassium chloride 20 mEq one tablet by mouth twice a day - Advair Diskus 250/50 one puff inhalation twice a day - sertraline 50 mg one tablet by mouth at bedtime PAST MEDICAL HISTORY: Includes; 1. Subarachnoid hemorrhage secondary to aneurysm follows with Dr. Kumari. 2. Normal pressure hydrocephalus status post removal of the ventriculoperitoneal (BATTER MIXER HELPER) shunt due to infection. 3. TIA. 4. Bowel perforation. 5. Hypertension. 6. Glaucoma. 7. Osteoarthritis. 8. Osteoporosis. 9. COPD. 10. Tobacco use quit six months ago. PAST SURGICAL HISTORY: Includes, 1. Splenectomy. 2. Brain aneurysm. 3. Hysterectomy. 4. 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 5. Right frontal BATTER MIXER HELPER shunt, which was removed. SOCIAL HISTORY: Patient used to smoke quit six months ago used to smoke one pack per day for 30 years. Denies any drinking or recreational drug use. Patient used to live in an apartment by herself; however, since April she has been a resident at [facility]. FAMILY HISTORY: Patient's father had bone cancer. REVIEW OF SYSTEMS: GENERAL: Patient admits to 20 pound weight loss over the past few months. Denies any sick contact or any recent traveling. Denies any fever or chills. HEENT: Denies any changes with vision, smell, hearing, or taste. CARDIOVASCULAR: Denies any chest pain, trouble breathing. PULMONARY: Denies any trouble breathing. GI: Denies any abdominal pain, nausea, vomiting, diarrhea, or constipation. Denies any blood in the urine or stool. Admits to a loose bowel movement this morning, however. : Denies any problem with urination or any blood in the urine. MUSCULOSKELETAL: Admits to arthritis. Admits to left lower extremity weaker than the right side due to past stroke. HEMATOLOGY/ONCOLOGY: Denies any easy bruising or any bleeding anywhere. ENDOCRINE: Denies any polydipsia or polyuria, or any heat or cold intolerance. NEUROLOGICAL: Denies any weakness on any one side of her body, any change in sensation; however, she did have history of a CVA and with left-sided lower extremity weakness as a result. PSYCHIATRIC: Denies any depression or anxiety. PHYSICAL EXAMINATION: VITAL SIGNS: Temperature 98.4, pulse 78, respirations 18, blood pressure 118/72 , oxygen was satting at 96% on room air. GENERAL: Patient is a pleasant, elderly female who was alert, awake, oriented times three, appears to be in mild distress, lying flat in her bed. HEENT: Normocephalic, atraumatic. Extraocular motors are intact. Mucous membranes moist. NECK: Supple. No neck lymphadenopathy. Patient does have slight bruising on the anterior part of her neck; however, no hematoma. It was not tender to palpation. CARDIOVASCULAR: Regular rate and rhythm, S1, S2. No murmurs, rubs, or gallops. LUNGS: Clear to auscultation bilaterally. No wheezes, rales, or rhonchi. ABDOMEN: Positive bowel sounds. Soft, nontender, nondistended. No peritoneal signs. No ecchymosis. EXTREMITIES: Right hip was tender to palpation; however, no swelling, no ecchymosis noted. Patient was unable to move her right lower extremity due to pain. However, sensation was intact. Pulses were palpable. Left lower extremity also shows no edema, clubbing, or cyanosis; has full range of motion. Muscle strength was 5/5 in left lower extremity. LABS: No labs were drawn this morning; however, there was a lab drawn yesterday at 8 a.m. and shows WBC 7.6, hemoglobin 13, hematocrit 39.8 with platelet count of 233. Sodium 140, potassium 4.1, chloride 107, bicarbonate 21, BUN 17, creatinine 0.82, GFR greater than 60, fasting glucose 109, calcium 9.2, CRP was slightly elevated at 0.94. Patient had a CT head in the emergency room without contrast which shows no acute findings. Patient does have a hip x-ray which shows right-sided compacted fracture of the femoral neck. Patient also had a CT scan of the cervical spine which shows no acute finding, and also a CT of the pelvis which did not show any acute finding. However, it does show a right femoral neck fracture. ASSESSMENT AND PLAN: 70-year-old female with past medical history of subarachnoid hemorrhage due to aneurysm follows with Dr. Kumari, chronic obstructive pulmonary disease (COPD), hypertension, normal pressure hydrocephalus, status post ventriculoperitoneal (BATTER MIXER HELPER) shunt and also removal of the BATTER MIXER HELPER shunt, transient ischemic attack (TIA), bowel perforation, osteoporosis, glaucoma, presented with: 1. Mechanical fall resulting in a compacted right-sided femoral neck fracture and was seen by Dr. Luis from orthopedic surgery. Patient has already consented for surgery. She stated that she walks with a walker around the hallway many times at one time without any trouble breathing or chest pain. It makes her an intermediate risk. Patient does not have a significant heart history. No history of heart failure. Patient did have an echocardiogram done in 2008 shows ejection fraction of 65%, only mild diastolic dysfunction. EKG from 05/07/2016, did not show arrhythmia. It showed sinus rhythm with ventricular rate of 70. We will repeat an EKG and obtain STAT labs for now and continue to monitor patient. At this point, the patient is optimized for surgery with intermediate risk. 2. History of subarachnoid hemorrhage. CT of the head without contrast was negative. We will continue to monitor. Patient does not have any focal neurological findings. 3. COPD. She has breathing treatment as needed. 4. History of tobacco use. Continue nicotine patch. 5. Gastroesophageal reflux disease (GERD). Continue home proton pump inhibitor (PPI). 6. Hypertension. We will continue to monitor, hold patient's home Norvasc, and we will restart blood pressure medication if needed. 7. Osteoarthritis. Continue pain control per orthopedic surgeon. At this point, the patient is on Percocet one tablet by mouth every four hours as needed. 8. Allergic rhinitis. Continue Flonase. 9. Deep vein thrombosis (DVT) prophylaxis. Sequential compression devices (SCDs) on the left lower extremity only. Will hold heparin for now due to possible surgery. DISPOSITION: Patient does have a right compacted femoral neck fracture and she has consented for surgery. At this point, she has a METS of 4 with intermediate risk for surgery. We will obtain STAT labs and repeat EKG. If EKG shows no arrhythmia, patient is likely optimized for surgery. Patient has been discussed with attending doctor, Dr. Ho. My preceptor for this patient encounter was Dr. Anna Ho. The preceptor was physically present in the building during the encounter and was fully available. As needed, all aspects of the patient interview, examination, medical decision making process, and medical care plan development were reviewed and approved by the preceptor. The preceptor is aware and concurs with the plan as stated in the body of this note and will attest to such by his cosignature. GINGER
[2016-07-10 04:30] VITALS: BP 132/60
[2016-07-10] MEDS: PERCOCET 5MG/325MG TAB PO PRN ×2 (04:52→09:36)
[2016-07-10 06:00] VITALS: BP 127/61
[2016-07-10 07:24] LABS: MEAN CORPUSCULAR HGB CONC 33.7 g/dl (32.0-36.5); MEAN CORPUSCULAR VOLUME 88.9 fl (80.0-96.0); RED CELL DISTRIBUTION WIDTH 13.4 % (11.5-14.5); WHITE BLOOD COUNT 14.5 K/mm3 (4.0-10.0)
[2016-07-10 07:27] LABS: INR 1.04
[2016-07-10] MEDS ORDERED: CLINDAMYCIN 600 MG in APPROPRIATE DILUENT 1 EA IV ONE (07:30)
[2016-07-10 07:47] LABS: ALBUMIN 3.2 GM/DL (3.2-5.2); ALKALINE PHOSPHATASE 77 U/L (45-117); ALT/SGPT 16 U/L (12-78); ANION GAP 8 MEQ/L (8-16); AST/SGOT 18 U/L (15-37); BILIRUBIN,TOTAL 0.3 MG/DL (0.2-1.0); BLOOD UREA NITROGEN 16 MG/DL (7-18); CALCIUM LEVEL 9.1 MG/DL (8.8-10.2); CARBON DIOXIDE LEVEL 24 MEQ/L (21-32); CHLORIDE LEVEL 108 MEQ/L (98-107); CHLORIDE LEVEL 109 MEQ/L (98-107); CREATININE FOR GFR 0.78 MG/DL (0.55-1.02); CREATININE FOR GFR 0.81 MG/DL (0.55-1.02); GLOMERULAR FILTRATION RATE > 60.0 (>39); GLUCOSE, FASTING 119 MG/DL (83-110); GLUCOSE, FASTING 120 MG/DL (83-110); MAGNESIUM LEVEL 1.8 MG/DL (1.8-2.4); POTASSIUM SERUM 4.3 MEQ/L (3.5-5.1); POTASSIUM SERUM 4.5 MEQ/L (3.5-5.1); SODIUM LEVEL 140 MEQ/L (136-145); SODIUM LEVEL 141 MEQ/L (136-145); TOTAL PROTEIN 6.4 GM/DL (6.4-8.2)
--- NOTE | 2016-07-10 07:55 | REP ---
Clinical: Trauma. Technique: AP, cross table lateral, bilateral oblique views. Findings: Marked osteopenia and advanced degenerative changes are appreciated and limit evaluation for subtle injury. The L5-S1 level is poorly evaluated. The visualized lower thoracic through L4 levels demonstrate normal alignment and no obvious acute fracture / compression injury. Impression: Limited evaluation demonstrating marked osteopenia and degenerative changes. No obvious acute fracture / compression injury or subluxation. L5-S1 level is incompletely evaluated. Signed by Cordell Ramos MD 07/10/2016 07:46 A
--- NOTE | 2016-07-10 07:58 | REP ---
Clinical: Trauma. Technique: AP, frog lateral and cross-table lateral views of the right hip. Findings: There appears to be an acute impacted fracture through the femoral neck. Underlying osteopenia and degenerative changes noted Impression: Acute impacted fracture through the femoral neck Signed by Cordell Ramos MD 07/10/2016 07:49 A
--- NOTE | 2016-07-10 08:07 | REP ---
Clinical: Chest pain. Comparison: 05/08/2016. Findings: Mediastinum and cardiac silhouette are stable. Lung ulrich demonstrate chronic changes. Right lower lobe atelectasis and possible effusion cannot be excluded. No pneumothorax. Skeletal structures intact. Impression: Cannot exclude right lower lobe infiltrate and effusion. Signed by Cordell Ramos MD 07/10/2016 08:00 A
[2016-07-10] MEDS: ADVAIR DISKUS 250/50 INH PWD INH SCH ×2 (08:13→20:32)
[2016-07-10] MEDS: OMEPRAZOLE 20 MG CAP PO SCH (09:36)
[2016-07-10] MEDS ORDERED: ceFAZolin 1GM INJ (J0690) As Ordered ONE (10:27)
[2016-07-10] MEDS ORDERED: PROPOFOL 200 MG/20 ML VIAL As Ordered ONE (11:05)
[2016-07-10] MEDS ORDERED: fentaNYL 100 MCG/2 ML INJECTION (J3010) As Ordered ONE (11:05)
[2016-07-10] MEDS ORDERED: CLINDAMYCIN INJ 900MG/6ML VIAL As Ordered ONE (11:05)
[2016-07-10] MEDS ORDERED: MIDAZOLAM INJ 2 MG/2 ML VIAL (J2250) As Ordered ONE (11:05)
[2016-07-10] MEDS ORDERED: KETAMINE HCL 200 MG/20 ML VIAL As Ordered ONE (11:07)
[2016-07-10] MEDS ORDERED: CLINDAMYCIN 600 MG/50 ML PREMIX BAG As Ordered ONE (11:19)
--- NOTE | 2016-07-10 11:25 | IPN ---
DATE: 07/10/2016 The patient is seen and examined, and she wishes to go ahead with an open reduction, internal fixation (ORIF) of her right hip, which we had recommended. She has an essentially nondisplaced or impacted right femoral neck fracture based on x-ray and CT scan. She is a [facility] resident. I talked to her about the options of ORIF with pins versus hemiarthroplasty. I think the hemiarthroplasty may be more than she needs and the ORIF I think is a better choice, it is a smaller surgery, I think lower risk, although there certainly is a risk that it may not heal. She also has some issue with recently being treated with antibiotics for a possible shunt infection. She apparently is off the antibiotics right now, she told me. I think the smaller the surgery the safer it would be in terms of infection. She wished to go ahead with an ORIF of her right hip. She understands the nature of this. The risks of bleeding, infection, damage to nerves, vessels, persistent pain, malunion, nonunion, loss of reduction, blood clots, medical problems, among others. We will plan on proceeding with an ORIF for the right hip, possible hemiarthroplasty if for some reason the fracture is shifted or if the fixation is not appropriate. Again, she is well aware of the risks associated with this and the fact this is a quite significant injury for somebody of her age and activity level.
[2016-07-10] MEDS ORDERED: ePHEDrine SULFATE 25 MG/5 ML(5MG/ML) SYRINGE As Ordered ONE (11:59)
[2016-07-10] MEDS ORDERED: ONDANSETRON 4MG/2ML VIAL (J2405) As Ordered ONE (12:00)
[2016-07-10] MEDS ORDERED: FLEET ENEMA PR PRN (12:30)
[2016-07-10] MEDS ORDERED: LR 1,000 ML IV SCH ×2 (12:30)
[2016-07-10] MEDS ORDERED: fentaNYL 100 MCG/2 ML INJECTION (J3010) IV PRN (12:30)
[2016-07-10] MEDS ORDERED: ONDANSETRON 4MG/2ML VIAL (J2405) IV PRN ×2 (12:30→12:45)
[2016-07-10] MEDS ORDERED: MORPHINE 4 MG/ML 1ML SYRINGE IV PRN (12:45)
[2016-07-10] MEDS ORDERED: MORPHINE 2 MG/ML 1ML SYRINGE IV PRN (12:45)
--- NOTE | 2016-07-10 12:58 | REP ---
Clinical: Open reduction and fixation. Technique: Intraoperative fluoroscopic imaging. Findings: Three intraoperative fluoroscopic images demonstrate the patient to be status post open reduction and fixation for femoral neck fracture with three compression screws extending to the the femoral head. Total fluoroscopic time 23 seconds. Impression: Status post open reduction and fixation for femoral neck fracture. Signed by Cordell Ramos MD 07/10/2016 12:50 P
[2016-07-10 13:00] VITALS: BP 100/52
--- NOTE | 2016-07-10 14:16 | RO ---
DATE OF PROCEDURE: 07/10/2016 PREPROCEDURE DIAGNOSIS: Right femoral neck fracture, impacted. POSTPROCEDURE DIAGNOSIS: Right femoral neck fracture, impacted. PROCEDURE: Open reduction, internal fixation (ORIF) of right femoral neck fracture with three cannulated screws. SURGEON: Alexis Higuera MD TELEVISION PRODUCTION ASSISTANT: ALIE Javed ANESTHESIA: Spinal. ESTIMATED BLOOD LOSS: Less than 50. COMPLICATIONS: None. INDICATIONS: 70-year-old woman who fell last evening sustaining a right hip fracture. She had significant pain, inability to ambulate. She wished to go ahead with surgical treatment, having understood the nature of the procedure, the risks of bleeding, infection, damage to nerves, vessels, malunion, nonunion, blood clots, medical problems, , need for further surgery, among others. This was discussed with the daughter as well. PROCEDURE: The patient was taken to the operating room and placed on the fracture table in the usual position with the right leg placed in the leg lewis. No significant traction was needed. The left leg was placed in a padded stirrup. X-rays were obtained and confirmed the fracture was still in the same position and was somewhat valgus impacted. We were able to visualize it quite well. We prepped and draped the hip in the usual sterile fashion. Time-out was performed. I then created a longitudinal incision over the lateral aspect of the hip, marking it out with a guidewire. This was about an inch and half in length. Sharp dissection was carried down through the fascia jessica and then placed the bullet shaped guide along the lateral aspect of the femur. Under C-arm guidance, I advanced in three guidewires up to the subchondral bone and these were spaced apart appropriately and then put in an inverted triangle orientation. They were parallel with each other, and I was pleased in both the AP a lateral view with the position of these pins. I then selected 16 mm threads and measured each one and advanced in the screw of appropriate length up to several millimeters from the joint surface. Excellent purchase was noted with the screws. They seemed to be of appropriate length. Final C-arm images were obtained showing the reduction was unchanged and in good position. The screw lengths were appropriate. I then irrigated, closed the deep layer with #1 Vicryl suture and the subcutaneous with #2-0 Vicryl. The skin with west. Sterile dressing was applied. She was taken to recovery room in stable condition. There were no known complications. PLAN: Plan will be touchdown weightbearing, following this fracture, and otherwise routine IV antibiotics therapy, etc.
--- NOTE | 2016-07-10 16:29 | IPN ---
DATE: 07/10/2016 PRIMARY CARE PHYSICIAN: Dr. Tran. Suad was seen on [facility]. She was admitted to the [facility] in error: Her primary care provider used to be Dr. Currie, but now the patient is on an SNF level of care under Dr. Tran and therefore is being reassigned to the hospitalist service. I saw Suad today but her care has been transferred to Dr. Crawley and we have discussed the case. Patient is seen postoperatively. She had a mechanical fall and fractured her right hip. She has had a cough for several days. Her preoperative chest x-ray showed a right lower lobe infiltrate. This was not addressed in her admission history and physical. She denies shortness of breath. She has a long complicated past medical history which is summarized in the history and physical. PHYSICAL EXAM: Blood pressure 101/49, pulse 62, respiratory rate 18, 98.2 degrees, 97% saturation on 2 liters. GENERAL APPEARANCE: Frail, elderly. NECK: No jugular venous distension (JVD). LUNGS: Wheezes both bases. HEART: Regular rate and rhythm. ABDOMEN: Soft and nontender. LABORATORY DATA: White count is 14.5, hemoglobin 11.5, platelets 292. Sodium 140, potassium 4.5, BUN 16, creatinine 0.8, glucose 119. IMPRESSION: 1. Right lower lobe infiltrate. Health care associated pneumonia suspected. Treat with ceftaroline 600 mg intravenous (IV) every 12 hours. Nebulized bronchodilator. 2. Hip fracture per orthopedic service. 3. Normal pressure hydrocephalus. Removal of SPORTS BOOK BOARD ATTENDANT shunt due to infection. Extensive prolonged hospitalizations and I would encourage attending physician to refer to those records. She is followed by Dr. Kumari and Dr. Lao. 4. Recent history of tobacco abuse. Quit smoking 6 months ago. 5. History of depression. Continue her Sertraline. Daily lab work has been reordered. Respiratory panel has been ordered.
[2016-07-10] MEDS ORDERED: WARFARIN SOD 5 MG TAB PO SCH (17:00)
[2016-07-10 17:30] VITALS: BP 124/62
[2016-07-10] MEDS: CLINDAMYCIN 600 MG in APPROPRIATE DILUENT 1 EA IV SCH (17:36)
[2016-07-10] MEDS: CEFTAROLINE FOSAMIL 600 MG in D5W MINI-BAG PLUS 50 ML IV SCH (18:18)
[2016-07-10 20:34] VITALS: O2SAT 94
[2016-07-10] MEDS: NICOTINE 7 MG/24 HR TRANSDERMAL TD SCH (20:41)
[2016-07-10] MEDS: NORCO, ANEXSIA 5/325MG TABLET (HYDROcodone/ACETAMINOPHEN) PO PRN (20:41)
[2016-07-10] MEDS: SERTRALINE HCL 50 MG TAB PO SCH (20:41)
[2016-07-10 21:30] VITALS: BP 152/67
[2016-07-11 02:00] VITALS: BP 151/67
[2016-07-11] MEDS: NORCO, ANEXSIA 5/325MG TABLET (HYDROcodone/ACETAMINOPHEN) PO PRN ×5 (02:28→20:05)
[2016-07-11] MEDS: CLINDAMYCIN 600 MG in APPROPRIATE DILUENT 1 EA IV SCH (02:28)
[2016-07-11 06:00] VITALS: BP 121/58
[2016-07-11] MEDS: CEFTAROLINE FOSAMIL 600 MG in D5W MINI-BAG PLUS 50 ML IV SCH ×2 (06:28→17:31)
[2016-07-11 07:06] LABS: MEAN CORPUSCULAR HGB CONC 32.4 g/dl (32.0-36.5); MEAN CORPUSCULAR VOLUME 89.6 fl (80.0-96.0); RED CELL DISTRIBUTION WIDTH 13.3 % (11.5-14.5); WHITE BLOOD COUNT 10.5 K/mm3 (4.0-10.0)
[2016-07-11 07:07] LABS: INR 1.19
[2016-07-11 07:14] LABS: ANION GAP 9 MEQ/L (8-16); BLOOD UREA NITROGEN 14 MG/DL (7-18); CALCIUM LEVEL 8.7 MG/DL (8.8-10.2); CARBON DIOXIDE LEVEL 23 MEQ/L (21-32); CHLORIDE LEVEL 107 MEQ/L (98-107); CREATININE FOR GFR 0.69 MG/DL (0.55-1.02); GLOMERULAR FILTRATION RATE > 60.0 (>39); GLUCOSE, FASTING 96 MG/DL (83-110); POTASSIUM SERUM 3.8 MEQ/L (3.5-5.1); SODIUM LEVEL 139 MEQ/L (136-145)
[2016-07-11] MEDS: ADVAIR DISKUS 250/50 INH PWD INH SCH ×2 (08:21→20:19)
[2016-07-11] MEDS: OMEPRAZOLE 20 MG CAP PO SCH (09:36)
[2016-07-11] MEDS: MOM 30ML SUSPENSION UDC PO SCH (09:36)
[2016-07-11] MEDS: MIRALAX *UNIT DOSE* 17GM PACKET PO SCH (09:36)
[2016-07-11] MEDS: SENOKOT S TAB PO SCH ×2 (09:36→20:02)
[2016-07-11 10:00] VITALS: BP 131/64
--- NOTE | 2016-07-11 10:27 | REP ---
Clinical: Right hip fracture. Technique: AP and cross-table lateral views of the right hip. Findings: The patient is status post pinning for right femoral neck fracture. Satisfactory reduction. Underlying osteopenia and degenerative changes appreciated. Impression: Satisfactory status post open reduction and fixation for right femoral neck fracture. Signed by Cordell Ramos MD 07/11/2016 10:19 A
--- NOTE | 2016-07-11 13:18 | IPNPDOC ---
Text Note Date of Service The patient was seen on 07/11/16. NOTE Subjective: Patient is a 70 year old female with a PMHx of SAH 2/2 Aneurysm, HTN, COPD, GERD, TIA, Hx of Bowel perforation, Tobacco abuse, Osteoporosis, OA and glaucoma who presented to the ER after she had fallen and complained of right hp pain. Patient noted that when she got out of bed she tripped on her mat and fell. Patient was found to have a right hip fracture and admitted to medicine. Patient was seen and examined at the bedside. Currently notes she has mild right hip pain. No other complaints. Objective: Vitals (See below) General: Lying in bed, no acute distress, comfortable, AAOx3 HEENT: NC, AT CVS: RRR, +S1S2 Lungs: Fair air entry b/l, -w/r/r Abdomen: Soft, ND, NT, +BSx4 Extremities: +PPx4, - Edema, - Calf tenderness Assessment and plan: 1. Right hip fracture - s/p ORIF (POD #1) - Presented after a fall from home - Complaints of mild right hip pain - Pain control as per orthopedic surgery 2. Right lower lobe infiltrate - likely 2/2 CAP - Reports mild cough, no fevers - Physical un-revealing - CXR reveals right lower lobe infiltrate and effusion - c/w Ceftaroline (Day #2); will transition to PO medications upon discharge 3. Normocytic anemia - Hg remains stable 4. Normal pressure hydrocephalus - previous hospitalization with extensive course - APPRISE COUNSELOR shunt was removed 2/2 infection - Followed by Dr. Lao and Dr. Kumari as an outpatient 5. Tobacco abuse - quit smoking 6 months ago 6. Depression - c/w sertraline 7. SAH 2/2 Aneurysm 8. COPD - no evidence of exacerbation - c/w inhaled therapy; Advair, Albuterol 9. TIA 10. Hx of Bowel perforation 11. Osteoporosis 12. OA 13. Glaucoma 14. GERD - c/w omeprazole 15. DVT prophylaxis - c/w anticoagulation as per orthopedic team VS,Scarlett, I+O VS, Scarlett, I+O Laboratory Tests 07/11/16 06:38 Calcium Level 8.7 L, Red Blood Count 3.86 L, Mean Corpuscular Volume 89.6, Mean Corpuscular Hemoglobin 29.0, Mean Corpuscular Hemoglobin Concent 32.4, Red Cell Distribution Width 13.3 Vital Signs Date Time Temp Pulse Resp B/P Pulse Ox O2 Delivery O2 Flow Rate FiO2 07/11/16 11:06 18 07/11/16 06:00 98.6 62 121/58 95 Nasal Cannula 2.0 I&O- Last 24 Hours up to 6 AM 07/11/16 06:00 Intake Total 1170 ml Output Total 150 ml Balance 1020 ml CODI ALEJANDRE MD Jul 11, 2016 13:17
[2016-07-11 14:00] VITALS: BP 126/66
[2016-07-11] MEDS ORDERED: WARFARIN SOD 5 MG TAB PO ONE ×2 (17:00)
[2016-07-11] MEDS: SERTRALINE HCL 50 MG TAB PO SCH (20:02)
[2016-07-11] MEDS: NICOTINE 7 MG/24 HR TRANSDERMAL TD SCH (20:02)
[2016-07-11 20:19] VITALS: O2SAT 95
[2016-07-11 22:00] VITALS: BP 126/58
[2016-07-12] MEDS: NORCO, ANEXSIA 5/325MG TABLET (HYDROcodone/ACETAMINOPHEN) PO PRN (02:31)
[2016-07-12 06:00] VITALS: BP 123/59
[2016-07-12] MEDS: CEFTAROLINE FOSAMIL 600 MG in D5W MINI-BAG PLUS 50 ML IV SCH (06:35)
[2016-07-12] MEDS ORDERED: traMADol 50 MG TAB PO PRN (06:45)
[2016-07-12 07:05] LABS: MEAN CORPUSCULAR HEMOGLOBIN 29.3 pg (27.0-33.0); MEAN CORPUSCULAR HGB CONC 32.5 g/dl (32.0-36.5); RED CELL DISTRIBUTION WIDTH 13.6 % (11.5-14.5); WHITE BLOOD COUNT 11.4 K/mm3 (4.0-10.0)
[2016-07-12 07:09] LABS: INR 2.6
[2016-07-12 07:25] LABS: ANION GAP 6 MEQ/L (8-16); BLOOD UREA NITROGEN 14 MG/DL (7-18); CALCIUM LEVEL 8.9 MG/DL (8.8-10.2); CARBON DIOXIDE LEVEL 29 MEQ/L (21-32); CHLORIDE LEVEL 104 MEQ/L (98-107); CREATININE FOR GFR 0.68 MG/DL (0.55-1.02); GLOMERULAR FILTRATION RATE > 60.0 (>39); GLUCOSE, FASTING 100 MG/DL (83-110); POTASSIUM SERUM 3.7 MEQ/L (3.5-5.1); SODIUM LEVEL 139 MEQ/L (136-145)
[2016-07-12] MEDS ORDERED: LEVA750T PO (08:02)
[2016-07-12] MEDS: ADVAIR DISKUS 250/50 INH PWD INH SCH (08:38)
[2016-07-12] MEDS: MIRALAX *UNIT DOSE* 17GM PACKET PO SCH (09:00)
[2016-07-12] MEDS: SENOKOT S TAB PO SCH (09:00)
[2016-07-12] MEDS: MOM 30ML SUSPENSION UDC PO SCH (09:00)
[2016-07-12] MEDS: OMEPRAZOLE 20 MG CAP PO SCH (09:36)
--- NOTE | 2016-07-12 14:02 | DSES ---
DATE OF ADMISSION: 07/10/2016 DATE OF DISCHARGE: 07/12/2016 ATTENDING PHYSICIAN: Ann Marie Crawley MD PRIMARY CARE PHYSICIAN: Neyda Tran DO CONSULTING PHYSICIANS: Dr. Alexis Higuera CONDITION ON DISCHARGE: Stable. FINAL DIAGNOSES: 1. Right hip fracture status post open reduction internal fixation (ORIF). 2. Right lower lobe infiltrate, likely secondary to community acquired pneumonia. PROCEDURES: Patient had an open reduction internal fixation (ORIF) of her femoral neck fracture with three cannulated screws on 07/10/2016. HISTORY OF PRESENT ILLNESS: The patient is a 70-year-old female with a past medical history of subarachnoid hemorrhage secondary to aneurysm, hypertension, chronic obstructive pulmonary disease (COPD), gastroesophageal reflux disease (GERD), transient ischemic attack (TIA), history of bowel perforation, tobacco abuse, osteoporosis, osteoarthritis (OA), glaucoma, normal pressure hydrocephalus status post ventriculoperitoneal (DIRECTOR OF DESIGN) shunt placement and removal, who presented to the emergency room after she had fallen and had complained of right hip pain. The patient noted that she had gotten out of bed and tripped on her mat and had fallen. The patient was found to have a right hip fracture and was admitted to medicine. HOSPITAL COURSE: 1. Right hip fracture status post open reduction internal fixation (ORIF), postoperative day 2. Presented after a fall at home. Complains of mild right hip pain after surgery. Pain control as per orthopedic surgery. 2. Right lower lobe infiltrate likely secondary to community acquired pneumonia. Reports mild cough. No fevers. Physical was unrevealing. Chest x-ray reveals right lower lobe infiltrate and effusion. Continue with ceftaroline day 3. Upon discharge she has been transitioned to Levaquin for completion of antibiotic course. 3. Normocytic anemia. Hemoglobin remains stable. 4. Normal pressure hydrocephalus. Previous hospitalization with extensive course. Her DIRECTOR OF DESIGN shunt was removed secondary to infection. Follows with Dr. Lao and Dr. Kumari as outpatient. 5. Tobacco abuse. Quit smoking about six months ago. 6. Depression. Continue sertraline. 7. Subarachnoid hemorrhage secondary to aneurysm. 8. COPD. No evidence of exacerbation. Continue with inhaled therapy, Advair and albuterol. 9. TIA. 10. History of bowel perforation. 11. Osteoporosis. 12. Osteoarthritis (OA). 13. Glaucoma. 14. Gastroesophageal reflux disease (GERD). Continue with omeprazole. 15. Deep vein thrombosis (DVT) prophylaxis currently on Coumadin as per orthopedic team and will be monitored as an outpatient. DISCHARGE MEDICATIONS: The patient has been discharged home with the following medication list: - acetaminophen 650 mg by mouth every 4 hours as needed pain - bisacodyl 10 mg per rectum daily as needed constipation - Milk of Magnesia 30 mL by mouth daily as needed constipation - nicotine patch 7 mg transdermally at bedtime - omeprazole 20 mg by mouth daily - Advair Diskus 250/50 one puff inhaled twice a day - sertraline 50 mg by mouth at bedtime - enema per rectum daily as needed constipation Stopped medications include amlodipine 5 mg by mouth daily, ondansetron 4 mg by mouth every 6 hours as needed nausea, potassium chloride 20 mEq by mouth twice a day. New medications prescribed include levofloxacin 750 mg by mouth daily for five days. DISCHARGE INSTRUCTIONS: Patient has been advised to followup with her primary care provider as well as orthopedic surgery within the next one to two weeks. She has been advised to remain complaint with treatment plan and medications. Return to the emergency room if she experiences any problems. The patient has been advised to have her INR checked on a daily basis given that she is on antibiotics. Time spent on discharge 35 minutes.
[2016-07-15] MEDS ORDERED: MULT1TAB10 PO (16:18)
[2016-07-15] MEDS ORDERED: TRAM50TA2 PO (16:18)
[2016-07-15] MEDS ORDERED: COUM2TAB10 PO (16:18)
[2016-07-15] MEDS ORDERED: LEVA750T PO (16:18)
[2016-07-15] MEDS ORDERED: WARF4TAB52 PO (17:45)
[2016-07-15] MEDS ORDERED: VITMTA PO (17:56)
[2016-07-15] MEDS ORDERED: TUBE5INJ9 ID (17:56)
[2016-07-15] MEDS ORDERED: ACET-654 PO (17:56)
== END 2016-07-12 10:15 | DRG 480 ==
LOC: EDBD 22:52 → M ED 23:54 → M ED INP 07-10 02:03 → M MS5PR 07-10 04:21
PROVIDERS: ADMIT Internal Medicine; ATTEND Internal Medicine
PROC: 0QS604Z Reposition Right Upper Femur with Internal Fixation Device, Open Approach (ICD-10-PCS; principal; 2016-07-10 08:12)
DX: S72.041A Displaced fracture of base of neck of right femur, initial encounter for closed fracture (principal); J18.9 Pneumonia, unspecified organism; G91.2 (Idiopathic) normal pressure hydrocephalus; W18.09XA Striking against other object with subsequent fall, initial encounter; Y92.122 Bedroom in nursing home as the place of occurrence of the external cause; R26.81 Unsteadiness on feet; J44.9 Chronic obstructive pulmonary disease, unspecified; I10 Essential (primary) hypertension; M81.0 Age-related osteoporosis without current pathological fracture; K21.9 Gastro-esophageal reflux disease without esophagitis; D64.9 Anemia, unspecified; H40.9 Unspecified glaucoma; M19.90 Unspecified osteoarthritis, unspecified site; J30.9 Allergic rhinitis, unspecified; Z79.899 Other long term (current) drug therapy; Z88.5 Allergy status to narcotic agent; Z88.1 Allergy status to other antibiotic agents; Z88.2 Allergy status to sulfonamides; Z66 Do not resuscitate; Z79.51 Long term (current) use of inhaled steroids; Z86.73 Personal history of transient ischemic attack (TIA), and cerebral infarction without residual deficits; Z87.891 Personal history of nicotine dependence; Y95 Nosocomial condition

== ENCOUNTER → 2016-07-09 | Outpatient (REF) ==
[~2016-07-09] MED LIST changes: +BISA10SU4 PR; +BISA10SU5 PR; +ENEMENE3 PR; +LEVA750T PO; +NICO7DIS23 TD; +ONDA4TAB6 PO
[2016-07-09 09:54] LABS: MEAN CORPUSCULAR HGB CONC 32.7 g/dl (32.0-36.5); MEAN CORPUSCULAR VOLUME 91.9 fl (80.0-96.0); RED CELL DISTRIBUTION WIDTH 13.4 % (11.5-14.5); WHITE BLOOD COUNT 7.6 K/mm3 (4.0-10.0)
[2016-07-09 10:09] LABS: ANION GAP 12 MEQ/L (8-16); BLOOD UREA NITROGEN 17 MG/DL (7-18); CALCIUM LEVEL 9.2 MG/DL (8.8-10.2); CARBON DIOXIDE LEVEL 21 MEQ/L (21-32); CHLORIDE LEVEL 107 MEQ/L (98-107); CREATININE FOR GFR 0.82 MG/DL (0.55-1.02); GLOMERULAR FILTRATION RATE > 60.0 (>39); GLUCOSE, FASTING 109 MG/DL (83-110); POTASSIUM SERUM 4.1 MEQ/L (3.5-5.1); SODIUM LEVEL 140 MEQ/L (136-145)
== END ==
PROVIDERS: ATTEND Internal Medicine
DX: K75.0 Abscess of liver (principal)

== ENCOUNTER → 2016-07-15 | Outpatient (REF) ==
[~2016-07-15] MED LIST changes: +BISA10SU4 PR; +BISA10SU5 PR; +COUM2TAB10 PO; +ENEMENE3 PR; +LEVA750T PO; +MULT1TAB10 PO; +NICO7DIS23 TD; +ONDA4TAB6 PO; +TUBE5INJ9 ID; +WARF4TAB52 PO
[2016-07-15 12:30] LABS: INR 1.9
== END ==
PROVIDERS: ATTEND Internal Medicine
DX: Z79.01 Long term (current) use of anticoagulants (principal)

== ENCOUNTER → 2016-07-23 | Outpatient (REF) ==
[~2016-07-23] MED LIST changes: +LIDO5TD TD; +NICO7DIS2 TD; -NICO7DIS23 TD
[2016-07-23 11:26] LABS: MEAN CORPUSCULAR HEMOGLOBIN 29.8 pg (27.0-33.0); MEAN CORPUSCULAR HGB CONC 32.1 g/dl (32.0-36.5); MEAN CORPUSCULAR VOLUME 92.6 fl (80.0-96.0); RED CELL DISTRIBUTION WIDTH 14.5 % (11.5-14.5); WHITE BLOOD COUNT 8.9 K/mm3 (4.0-10.0)
[2016-07-23 11:30] LABS: INR 1.57
[2016-07-23 11:47] LABS: ANION GAP 7 MEQ/L (8-16); BLOOD UREA NITROGEN 18 MG/DL (7-18); CALCIUM LEVEL 10.1 MG/DL (8.8-10.2); CARBON DIOXIDE LEVEL 31 MEQ/L (21-32); CHLORIDE LEVEL 105 MEQ/L (98-107); CREATININE FOR GFR 0.73 MG/DL (0.55-1.02); GLOMERULAR FILTRATION RATE > 60.0 (>39); GLUCOSE, FASTING 77 MG/DL (83-110); POTASSIUM SERUM 3.9 MEQ/L (3.5-5.1); SODIUM LEVEL 143 MEQ/L (136-145)
== END ==
PROVIDERS: ATTEND Internal Medicine
DX: T85.738A Infection and inflammatory reaction due to other nervous system device, implant or graft, initial encounter (principal)

== ENCOUNTER → 2016-07-30 | Outpatient (REF) ==
[2016-07-30 11:06] LABS: MEAN CORPUSCULAR HEMOGLOBIN 29.8 pg (27.0-33.0); MEAN CORPUSCULAR HGB CONC 31.9 g/dl (32.0-36.5); MEAN CORPUSCULAR VOLUME 93.6 fl (80.0-96.0); RED CELL DISTRIBUTION WIDTH 15.3 % (11.5-14.5); WHITE BLOOD COUNT 10.6 K/mm3 (4.0-10.0)
[2016-07-30 11:24] LABS: ANION GAP 8 MEQ/L (8-16); BLOOD UREA NITROGEN 17 MG/DL (7-18); CALCIUM LEVEL 9.6 MG/DL (8.8-10.2); CARBON DIOXIDE LEVEL 29 MEQ/L (21-32); CHLORIDE LEVEL 106 MEQ/L (98-107); CREATININE FOR GFR 0.66 MG/DL (0.55-1.02); GLOMERULAR FILTRATION RATE > 60.0 (>39); GLUCOSE, FASTING 95 MG/DL (83-110); POTASSIUM SERUM 3.7 MEQ/L (3.5-5.1); SODIUM LEVEL 143 MEQ/L (136-145)
== END ==
PROVIDERS: ATTEND Internal Medicine
DX: G91.9 Hydrocephalus, unspecified (principal)

== ENCOUNTER → 2016-08-13 | Outpatient (REF) | payer MEDICARE, MEDICAID ==
[2016-08-13 12:07] LABS: ANION GAP 9 MEQ/L (8-16); BLOOD UREA NITROGEN 18 MG/DL (7-18); CALCIUM LEVEL 9.8 MG/DL (8.8-10.2); CARBON DIOXIDE LEVEL 27 MEQ/L (21-32); CHLORIDE LEVEL 107 MEQ/L (98-107); CREATININE FOR GFR 0.76 MG/DL (0.55-1.02); GLOMERULAR FILTRATION RATE > 60.0 (>39); GLUCOSE, FASTING 75 MG/DL (83-110); SODIUM LEVEL 143 MEQ/L (136-145)
[2016-08-13 13:18] LABS: MEAN CORPUSCULAR HEMOGLOBIN 30.4 pg (27.0-33.0); MEAN CORPUSCULAR HGB CONC 31.5 g/dl (32.0-36.5); MEAN CORPUSCULAR VOLUME 96.6 fl (80.0-96.0); RED CELL DISTRIBUTION WIDTH 15.8 % (11.5-14.5); WHITE BLOOD COUNT 10.3 K/mm3 (4.0-10.0)
== END ==
PROVIDERS: ATTEND Internal Medicine
DX: G91.9 Hydrocephalus, unspecified (principal)

== ENCOUNTER → 2016-08-27 | Outpatient (CLI) | payer MEDICARE ==
[~2016-08-27] MED LIST changes: +COUM2.5T11 PO; +SENN1TAB2 PO
--- NOTE | 2016-08-27 08:56 | REP ---
CT BRAIN WITHOUT CONTRAST: 08/27/2016. Comparison: MRI brain 07/17/2016, CT brain 07/15/2016, 07/09/2016 and 07/05/2016. Clinical history: Communicating hydrocephalus. Findings: Noncontrast images with soft tissue and bone window settings show the bilateral lateral ventricles, third and fourth ventricles dilated and unchanged from the multiple prior CTs. Aneurysm coiling centrally near the basilar tip at the right side of the [place] again seen and unchanged. Extensive periventricular low density white matter changes bilaterally in the cerebral hemispheres with some old lacunar infarcts bilaterally, also unchanged. No new infarct, intracranial hemorrhage or mass. Prior chencho hole in the right frontal bone. No intracranial bleed. No extra-axial fluid collection. Brainstem and cerebellum grossly intact. Basal cisterns intact. Mastoids and sinuses were clear. The skull base and calvarium show no fracture or focal lesion. Impression: 1. There is hydrocephalus with dilatation of the lateral, third and fourth ventricles unchanged from multiple prior CT scans and MRI. 2. Extensive chronic small vessel white matter ischemic changes in both hemispheres with some old lacunar infarcts and an old right frontal chencho hole. No ventriculostomy tube present. 3. No intracranial hemorrhage, acute infarct, mass or edema. 4. The skull base, calvarium, mastoids and visualized sinuses grossly intact. Signed by Anthony Eason MD 08/27/2016 08:59 A
== END ==
LOC: M RAD 07:18
PROVIDERS: ATTEND Neurological Surgery
DX: G91.0 Communicating hydrocephalus (principal); I67.82 Cerebral ischemia

== ENCOUNTER 2016-09-02 00:29 | Inpatient (IN) | payer MEDICARE, MEDICAID ==
[~2016-09-02] VITALS: Ht 154.9 cm; Wt 51.9 kg
[2016-09-02] VITALS (8 sets, daily range): BP systolic 132–173; BP diastolic 64–75
[~2016-09-02 00:29] MED LIST changes: -COUM2.5T11 PO; -SENN1TAB2 PO
[2016-09-02] MEDS ORDERED: ACETAMINOPHEN 325 MG TAB PO ONE (01:00)
[2016-09-02] MEDS: NS 1,000 ML IV SCH ×2 (01:45→08:07)
[2016-09-02] MEDS ORDERED: ONDANSETRON 4MG/2ML VIAL (J2405) IV PRN ×3 (02:00→17:15)
[2016-09-02] MEDS ORDERED: cloNIDine 0.2 MG TAB PO ONE (02:00)
[2016-09-02] MEDS ORDERED: amLODIPine 5 MG TAB PO ONE ×2 (02:00→03:30)
[2016-09-02] MEDS ORDERED: traMADol 50 MG TAB PO ONE (02:00)
[2016-09-02] MEDS ORDERED: ACETAMINOPHEN TAB 650MG DOSE (2X325MG) PO PRN (02:00)
[2016-09-02 02:16] LABS: BASO # 0.1 K/mm3 (0.0-0.2); BASO % 0.5 % (0.0-1.0); EOS # 0.4 K/mm3 (0.0-0.50); EOS % 2.6 % (0.0-3.0); LARGE UNSTAINED CELL # 0.2 K/mm3 (0.0-0.4); LARGE UNSTAINED CELL % 1.8 % (0.0-4.0); LYMPH # 2.9 K/mm3 (1.5-4.5); LYMPH % 22.3 % (24.0-44.0); MEAN CORPUSCULAR HGB CONC 31.9 g/dl (32.0-36.5); MEAN CORPUSCULAR VOLUME 97.1 fl (80.0-96.0); MONO # 0.6 K/mm3 (0.0-0.8); MONO % 4.2 % (0.0-5.0); NEUTROPHILS % 68.6 % (36.0-66.0); PLATELET COUNT, AUTOMATED 371 k/mm3 (150-450); RED CELL DISTRIBUTION WIDTH 15.5 % (11.5-14.5); WHITE BLOOD COUNT 13.2 K/mm3 (4.0-10.0)
[2016-09-02 02:24] LABS: INR 1.02
[2016-09-02 02:42] LABS: ANION GAP 7 MEQ/L (8-16); BLOOD UREA NITROGEN 18 MG/DL (7-18); CALCIUM LEVEL 9.3 MG/DL (8.8-10.2); CARBON DIOXIDE LEVEL 27 MEQ/L (21-32); CHLORIDE LEVEL 110 MEQ/L (98-107); CREATININE FOR GFR 0.82 MG/DL (0.55-1.02); GLOMERULAR FILTRATION RATE > 60.0 (>39); GLUCOSE, FASTING 119 MG/DL (83-110); POTASSIUM SERUM 3.7 MEQ/L (3.5-5.1); SODIUM LEVEL 144 MEQ/L (136-145)
[2016-09-02] MEDS ORDERED: hydrALAZINE INJ 20 MG/ML VIAL IV ONE (03:30)
--- NOTE | 2016-09-02 03:40 | REPUSA ---
CLINICAL HISTORY: Trauma. TECHNIQUE: Multiple axial CT images were obtained through the brain without IV contrast material. COMMENTS: Comparison is made to the prior exam performed on 07/09/2016. There is normal configuration of sella turcica. There are no intra or extra-axial collections. There is no mass effect or midline shift. There is no evidence of hematoma formation. No hydrocephalus is p resent. The ventricles are symmetrical. No abnormal calcifications are present. There is diffuse age-appropriate cerebellar and cerebral atrophy with proportionally dilated ventricl es and cortical sulci. There are bilateral periventricular and subcortical white matter hypolucencies compatible with mild c hronic microvascular disease. Otherwise, no significant focal abnormalities are seen either in the posterior fossa or supratentoria l compartment. Unremarkable metallic clips in the topography of the [place]. IMPRESSION: 1. Age-appropriate cerebellar and cerebral atrophy. 2. Mild chronic microvascular disease. 3. No evidence of acute intracranial pathology. No change is noted since the prior exam. Thank you for your kind referral of this patient.
[2016-09-02] MEDS ORDERED: LISINOPRIL 5 MG TAB PO ONE (03:45)
[2016-09-02] MEDS ORDERED: MOM 30ML SUSPENSION UDC PO PRN (04:30)
[2016-09-02] MEDS ORDERED: BISACODYL 10 MG SUPP PR PRN (04:30)
[2016-09-02] MEDS ORDERED: FLEET ENEMA PR PRN (04:30)
[2016-09-02] MEDS: NITROGLYCERIN 2% OINT 1 GM *U/D* PKT TOP SCH ×3 (05:01→23:39)
[2016-09-02] MEDS ORDERED: POTASSIUM CHLORIDE 10 MEQ SR TABLET PO ONE (05:15)
--- NOTE | 2016-09-02 06:03 | HPE ---
DATE OF ADMISSION: 09/02/2016 PRIMARY CARE PHYSICIAN: Dr. Currie OUTSIDE PRIMARY CARE PROVIDER: [facility], Dr. Tran. INPATIENT HOSPITALIST ATTENDING: Dr. Fritz Ventura Patient is DO NOT RESUSCITATE, DO NOT INTUBATE. CHIEF COMPLAINT: Fall, left hip fracture. HISTORY OF PRESENT ILLNESS: This is a 71-year-old female with history significant for subarachnoid hemorrhage due to aneurysm, essential hypertension, chronic obstructive pulmonary disease (COPD), reflux, transient ischemic attack (TIA), bowel perforation, tobacco use, osteoporosis, osteoarthritis, glaucoma, Right hip ORIF in June 2016 and pneumonia, presented to the emergency room after being found on the floor in the bathroom at [facility]. According to the patient, she denied any chest pain, pressure or tightness, palpitations or lightheadedness prior to the fall and had slipped on something on the floor landing on her buttocks with no head trauma. Patient was lying on her left side holding onto the handle next to the toilet, wanted to sit up and was moving all of her extremities freely. She was sitting on the bathroom floor with her legs fully extended in front of her and was placed in a wheelchair, toileted and brought back to bed. She then complained of severe pain in left upper thigh, was unable to extend her left leg and was then brought to the emergency room for further evaluation where she was found to have a left hip fracture. Orthopedic surgeon, Dr. Luis, was notified and requested hospitalist to admit. Patient denied any prodromal symptoms and had been in her usual state of health. Denies fever or chills, cough, diarrhea, constipation, bright red blood per rectum, melena, black tarry stools, headaches, changes in vision, upper respiratory infection, dysuria, urgency, frequency prior to her fall. Patient has had no changes in appetite, weight gain or weight loss. Hospitalist service was called to do a preoperative medical clearance as well as to admit for management of left hip fracture along with orthopedic surgery. PAST MEDICAL HISTORY: Subarachnoid hemorrhage secondary to brain aneurysm, follows with Dr. Kumari, normal pressure hydrocephalus, status post removal of intraperitoneal shunt due to Staphylococcus epidermidis infection, TIA, bowel perforation, hypertension, glaucoma, osteoarthritis, osteoporosis, COPD, quit smoking 2015 PAST SURGICAL HISTORY: Splenectomy, brain aneurysm repair, hysterectomy, internal carotid artery and basal temporal aneurysm coiled, right frontal ventriculoperitoneal (RECREATION ACTIVITIES COORDINATOR) shunt was removed. HOME MEDICATIONS: - Tylenol 650 as needed - Prilosec 20 daily - sertraline 50 daily - Fleets Enema as needed - salmeterol/fluticasone (Advair Diskus 250/50) one inhale twice a day - bisacodyl 10 mg as needed - Milk of Magnesia as needed - multivitamin one tablet daily SOCIAL HISTORY: Quit smoking in 2016, Previously smoked a pack a day for 30 years. Currently a resident at [facility]. Previously lived by herself in her apartment. Currently DO NOT RESUSCITATE, DO NOT INTUBATE. Patient's father had bone cancer. REVIEW OF SYSTEMS: Per history of present illness (HPI), 12-point system otherwise negative. PHYSICAL EXAMINATION: Temperature 97.2, pulse 58 sinus rhythm, respiratory rate 18, blood pressure 147/65, 96% on room air and 97% on 2 liters nasal cannula. Generally, patient is awake, alert, oriented times three, answering questions appropriately. Pupils are round and reactive to light and accommodation. Extraocular muscles are intact. Normocephalic, atraumatic. No jaundice, icterus. No jugular venous distention, thyromegaly or cervical lymphadenopathy. No pharyngeal erythema. Moist mucous membranes. Lungs are clear to auscultation. No wheezing, rales or rhonchi. Heart: S1, S2, sinus bradycardia. No murmurs, rubs or gallops. Abdomen is soft, nontender, nondistended. Positive bowel sounds. Extremities: No cyanosis, clubbing or edema. A few excoriations bilateral lower extremities. No bruising. Tender on the left hip. Able to flex but not extend due to excruciating pain. Limited range of motion due to severe pain. Unable to full assess. White count 13.2, hemoglobin 12, hematocrit 38, platelet count 371. 68% neutrophils, 22% lymphocytes, 4 monocytes, 2.6 eosinophils. Sodium 144, potassium 3.7, chloride 110, bicarbonate 27, BUN 18, creatinine 0.82, glucose 119, calcium 9.3, total CK 72, MB fraction1, troponin less than 0.02, BNP of 111. CT of the head: Age appropriate cerebellar atrophy, mild chronic microvascular changes. No evidence of acute intracranial pathology. Hip x-ray: No formal report. Per Dr. Amol Argueta, emergency room physician, left hip fracture. Chest x-ray: No formal report available. ASSESSMENT AND PLAN: This is a 71-year-old female living at [facility] with prior history significant for subarachnoid hemorrhage due to brain aneurysm status post coiling, essential hypertension, chronic obstructive pulmonary disease, reflux, transient ischemic attack, bowel perforation, osteoporosis, osteoarthritis, glaucoma, right hip open reduction, internal fixation (ORIF) and pneumonia, presented to emergency room with an acute fall at home after sliding on the floor with left hip pain, evaluated with x-ray, found to have a left hip fracture. Patient denied any chest pain, pressure or tightness, shortness of breath, lightheadedness, near syncope, palpitations prior to the episode and has been in her usual state of health. Denies any fever or chills, weight gain or weight loss, changes in appetite, nausea, vomiting, diarrhea, abdominal pain, bright red blood per rectum or melena and was brought into the emergency room, hospitalist service admitted. Hospitalist service was asked to admit by orthopedic surgery, Dr. Luis, for preoperative medical clearance as well as perioperative management of acute issues. During the emergency room stay, patient's blood pressure was uncontrolled due to severe pain. She was given intravenous hydralazine, clonidine due to sinus bradycardia , ventricular rate in the 50s. Patient could not be given beta-blockade. She was given lisinopril and the nitro paste with significant improvement. Current pressure is 147. Patient is asymptomatic. CURRENT ISSUES: 1. Preoperative medical clearance. Patient has no prior history of coronary artery disease (CAD), myocardial infarction (NM). Denies chest pain, pressure or tightness. EKG does have some T wave inversions. Patient is asymptomatic, however and denies any acute ischemic symptoms. Denies any shortness of breath. Chest x-ray still pending. Lungs are clear. No signs of congestive heart failure. No prior history of CHF. Currently, medically optimized to proceed to surgery. 2. Left hip fracture. Per orthopedic surgery, Dr. Luis, has been consulted for surgical repair. At this time, patient will be optimized. We have discontinued any anticoagulation, placed her on blood pressure medications for better blood pressure (BP) control, bowel regimen and pain management. Deep venous thrombosis (DVT) prophylaxis with compression stockings. 3. History of subarachnoid hemorrhage secondary to brain aneurysm status post coiling. Appears to be stable. CT of the head is unremarkable status post the fall with no signs of bleeding. Patient has not had any head trauma. 4. History of normal pressure hydrocephalus status post RECREATION ACTIVITIES COORDINATOR shunt removal due to infection, chronic. No acute issues. 5. History of TIA. Holding any anticoagulation currently. 6. Bowel perforation history, stable. 7. Glaucoma, chronic. 8. Osteoarthritis, chronic. 9. COPD. No active wheezing. As needed nebulizer. 10. DVT prophylaxis with compression stockings. 11. Sinus bradycardia, abnormal EKG. Monitor for ongoing symptoms and cycle cardiac markers. Repeat 12-lead EKG at 6 a.m. Patient will be assigned to Dr. Fritz Ventura at 7 a.m. on 09/02/2016. GINGER
[2016-09-02] MEDS ORDERED: CLINDAMYCIN 600 MG in APPROPRIATE DILUENT 1 EA IV ONE (06:30)
[2016-09-02 06:56] LABS: MAGNESIUM LEVEL 1.9 MG/DL (1.8-2.4)
--- NOTE | 2016-09-02 07:14 | ECGEPIP ---
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
--- NOTE | 2016-09-02 07:46 | REP ---
Clinical: Preoperative assessment . Comparison: 07/15/2016 . Findings: The mediastinum and cardiac silhouette are stable and within normal limits for portable technique. The lung ulrich are clear without acute consolidation, effusion, or pneumothorax. Skeletal structures are intact. Impression: Normal portable chest x-ray Signed by Cordell Ramos MD 09/02/2016 07:39 A
--- NOTE | 2016-09-02 07:57 | HPE ---
DATE OF SERVICE/DICTATION: 09/02/2016 CHIEF COMPLAINT: Left hip pain. HISTORY OF PRESENT ILLNESS: Patient is a resident of a [facility]itent[facility] at [facility]. She states that last evening she feel on the floor landing on her buttocks with an isolated injury to her left hip. Denies any head injury or loss of consciousness. No other complaints. No neurologic symptoms in the affected extremity. PAST MEDICAL HISTORY: She has multiple comorbidities including subarachnoid hemorrhage due to aneurysm, essential hypertension, chronic obstructive pulmonary artery disease (COPD), reflux, transient ischemic attack (TIA), bowel perforation, tobacco use, osteoporosis, and glaucoma. PAST SURGICAL HISTORY: She has a splenectomy, brain aneurysm repair, hysterectomy, internal carotid artery repair, basal temporary aneurysm coiled, and right frontal BULK PLANT OPERATOR shunt removed. Additional, she underwent a previous right hip internal fixation with Dr. Higuera approximately 1 year ago. HOME MEDICATIONS: - Tylenol - Prilosec - sertraline - Fleets enema - Advair - Dulcolax - Milk of Magnesia - multivitamin SOCIAL HISTORY: She is a former smoker. REVIEW OF SYSTEMS: Denies any fevers, chills, nausea, vomiting, diarrhea, constipation, chest pain, or shortness of breath. EXAMINATION: Awake, alert, and oriented times three. A well appearing female in no acute distress. Head is normocephalic, atraumatic. Extraocular muscles are intact. Cardiovascular: Regular rate and rhythm. Pulmonary: No increased work of breathing. Abdomen: Soft, nontender, nondistended. Focused examination of the left lower extremity reveals low grade local tenderness about the left hip joint with the skin intact, no local swelling appreciated. Distally she has 2+ dorsal pedis and posterior tibialis pulse, the toes are pink, warm, well perfused, less than 2 seconds capillary refill and full intact sensation. Extensor hallucis and flexor hallucis longus, tibialis anterior and tibialis posterior 5 out of 5 in strength. She is able to range the knee and ankle through about the 50% normal range of motion fairly comfortable. She does have some low grade tenderness about the knee joint with normal swelling or masses and no gross deformity. The thigh, leg, and ankle on the left side are grossly normal. Right lower extremity negative log roll, negative heel tap, she has fairly comfortable fluid range of motion throughout the right lower extremity which is grossly neurovascularly intact. In the bilateral upper extremities she demonstrates grossly normal fluid movement of shoulder, elbow, wrist, and hands. Cervical spine she moves freely without pain. X-rays reviewed of the pelvis and left hip show an impacted valgus subcapital femoral neck fracture on the left which is apparently acute. Additionally there is the stable internal fixation of cannulated screw fixation on the right hip appreciated. ASSESSMENT: Impacted femoral neck fracture as above and patient with multiple medical comorbidities. PLAN: Treatment options discussed at length with patient, all of her questions were answered, ultimately she did sign the surgical consent to go forward with left hip likely cannulated screw internal fixation versus less likely possible hemiarthroplasty. She has been seen and evaluated by the hospitalist service and cleared at this time to go forward with surgery as she is medically optimized.
[2016-09-02] MEDS: LISINOPRIL 5 MG TAB PO SCH ×2 (08:04→08:05)
[2016-09-02] MEDS: amLODIPine 10 MG TAB PO SCH (08:05)
[2016-09-02] MEDS: MULTIVITAMINS/MINERALS THERAP 1 TAB PO SCH (08:06)
[2016-09-02] MEDS: SENOKOT S TAB PO SCH ×2 (08:07→22:06)
[2016-09-02] MEDS: SERTRALINE HCL 50 MG TAB PO SCH (08:07)
[2016-09-02] MEDS: traMADol 50 MG TAB PO PRN ×2 (08:07→12:06)
--- NOTE | 2016-09-02 08:22 | REP ---
Clinical: Trauma. Technique: Frontal view of the pelvis with neutral and frog lateral views of the left hip. Findings: There is an acute left subcapital femoral neck fracture. Underlying age-related osteopenia and arthritic degenerative changes are appreciated. No other acute fracture or dislocation identified. Impression: Left subcapital femoral neck fracture. Signed by Cordell Ramos MD 09/02/2016 08:15 A
[2016-09-02] MEDS ORDERED: PANTOPRAZOLE 40MG INJ (PROTONIX) (C9113) IV SCH (09:00)
[2016-09-02] MEDS: ADVAIR DISKUS 250/50 INH PWD INH SCH (09:00)
[2016-09-02] MEDS ORDERED: OMEPRAZOLE 20 MG CAP PO SCH (09:00)
--- NOTE | 2016-09-02 09:05 | REP ---
Clinical: Trauma. Rule out fracture. Technique: AP and lateral views of the left knee. Findings: Age-related degenerative changes are appreciated. No acute fracture or dislocation. No effusion. Impression: No acute fracture dislocation identified. Signed by Cordell Ramos MD 09/02/2016 08:56 A
--- NOTE | 2016-09-02 13:38 | ECGEPIP ---
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 Electronically Signed On 09-02-2016 13:38:21 EDT by Sinan [place]
[2016-09-02] MEDS ORDERED: BUPIVACAINE/EPIN 0.25% 30 ML VIAL As Ordered ONE (14:10)
[2016-09-02] MEDS ORDERED: ceFAZolin 1GM INJ (J0690) As Ordered ONE (14:10)
[2016-09-02] MEDS ORDERED: CLINDAMYCIN INJ 900MG/6ML VIAL As Ordered ONE (14:13)
[2016-09-02] MEDS ORDERED: CLINDAMYCIN 600 MG/50 ML PREMIX BAG As Ordered ONE (14:53)
[2016-09-02] MEDS ORDERED: KETAMINE HCL 200 MG/20 ML VIAL As Ordered ONE (15:41)
[2016-09-02] MEDS ORDERED: MIDAZOLAM INJ 2 MG/2 ML VIAL (J2250) As Ordered ONE (15:41)
--- NOTE | 2016-09-02 16:43 | REP ---
LEFT HIP, OR, THREE VIEWS: HISTORY: Fracture. COMPARISON: 1:22 a.m., 09/02/2016 Three portable radiographs were obtained with a C-Arm. The patient is status post ORIF of a left femoral neck fracture. Three metal screws are present. There is anatomical alignment. Fluoro time 51 seconds IMPRESSION: The patient is status post ORIF of a left femoral neck fracture. There is anatomic alignment. Signed by Fritz Mcclure MD 09/02/2016 04:46 P
[2016-09-02] MEDS ORDERED: LR 1,000 ML IV SCH (17:00)
[2016-09-02] MEDS ORDERED: HYDROmorphone HCL 1 MG/ML SYRINGE (J1170) IV PRN (17:00)
[2016-09-02] MEDS ORDERED: fentaNYL 100 MCG/2 ML INJECTION (J3010) IV PRN (17:00)
[2016-09-02] MEDS: D5W/LR 1,000 ML IV SCH ×2 (17:15→23:19)
[2016-09-02] MEDS ORDERED: MORPHINE 2 MG/ML 1ML SYRINGE IV PRN (17:15)
[2016-09-02] MEDS ORDERED: PERCOCET 5MG/325MG TAB PO PRN (17:15)
[2016-09-02] MEDS ORDERED: ceFAZolin SOD 1 GM in D5W MINI-BAG PLUS 50 ML IV ONE (18:00)
[2016-09-02] MEDS ORDERED: traMADol 50 MG TAB PO PRN (18:45)
[2016-09-03] VITALS (7 sets, daily range): BP systolic 122–168; BP diastolic 59–79
[2016-09-03] MEDS: ADVAIR DISKUS 250/50 INH PWD INH SCH ×3 (00:16→20:08)
[2016-09-03] MEDS: NITROGLYCERIN 2% OINT 1 GM *U/D* PKT TOP SCH ×3 (03:09→23:00)
[2016-09-03 06:55] LABS: BASO % 0.4 % (0.0-1.0); EOS # 0.2 K/mm3 (0.0-0.50); EOS % 1.9 % (0.0-3.0); LARGE UNSTAINED CELL # 0.1 K/mm3 (0.0-0.4); LARGE UNSTAINED CELL % 1.2 % (0.0-4.0); LYMPH # 2.3 K/mm3 (1.5-4.5); LYMPH % 17.6 % (24.0-44.0); MEAN CORPUSCULAR HEMOGLOBIN 30.4 pg (27.0-33.0); MEAN CORPUSCULAR HGB CONC 32.4 g/dl (32.0-36.5); MEAN CORPUSCULAR VOLUME 93.7 fl (80.0-96.0); MONO # 0.9 K/mm3 (0.0-0.8); MONO % 6.9 % (0.0-5.0); NEUTROPHILS # 8.9 K/mm3 (1.8-7.7); NEUTROPHILS % 72.1 % (36.0-66.0); PLATELET COUNT, AUTOMATED 315 k/mm3 (150-450); RED CELL DISTRIBUTION WIDTH 15.7 % (11.5-14.5); WHITE BLOOD COUNT 12.4 K/mm3 (4.0-10.0)
[2016-09-03 07:02] LABS: ANION GAP 9 MEQ/L (8-16); BLOOD UREA NITROGEN 12 MG/DL (7-18); CALCIUM LEVEL 8.9 MG/DL (8.8-10.2); CARBON DIOXIDE LEVEL 24 MEQ/L (21-32); CHLORIDE LEVEL 105 MEQ/L (98-107); CREATININE FOR GFR 0.59 MG/DL (0.55-1.02); GLOMERULAR FILTRATION RATE > 60.0 (>39); GLUCOSE, FASTING 109 MG/DL (83-110); POTASSIUM SERUM 3.7 MEQ/L (3.5-5.1); SODIUM LEVEL 138 MEQ/L (136-145)
[2016-09-03] MEDS: MIRALAX *UNIT DOSE* 17GM PACKET PO SCH (09:08)
[2016-09-03] MEDS: SERTRALINE HCL 50 MG TAB PO SCH (09:08)
[2016-09-03] MEDS: MULTIVITAMINS/MINERALS THERAP 1 TAB PO SCH (09:08)
[2016-09-03] MEDS: amLODIPine 10 MG TAB PO SCH (09:09)
[2016-09-03] MEDS: LISINOPRIL 5 MG TAB PO SCH (09:09)
[2016-09-03] MEDS: SENOKOT S TAB PO SCH ×2 (09:10→21:00)
[2016-09-03] MEDS: PANTOPRAZOLE 40MG TAB (PROTONIX) PO SCH (09:10)
[2016-09-03] MEDS: ACETAMINOPHEN TAB 650MG DOSE (2X325MG) PO PRN ×2 (14:37→21:22)
[2016-09-03] MEDS ORDERED: WARFARIN SOD 5 MG TAB PO ONE (17:00)
--- NOTE | 2016-09-03 18:27 | IPNPDOC ---
Subjective Date Seen The patient was seen on 09/03/16. Subjective Chief Complaint/HPI The patient is a 71-year-old female admitted with a reason for visit of Left Hip Fracture. Events since last encounter Feeling ok this am, no complaint of pain, no chest pain, not short of breath Constitutional: Denies: Chills, Fever Pulmonary: Denies: Dyspnea, Cough Cardiovascular: Denies: Chest Pain, Palpitations Gastrointestinal: Denies: Nausea, Vomiting, Abdominal Pain Objective Physical Examination General Exam: Positive: Alert, Cooperative, No Acute Distress Eye Exam: Negative: Sclera icteric Chest Exam: Positive: Clear to auscultation, Negative: Rhonchi, Wheezing Heart Exam: Positive: Rate Normal, Regular Rhythm, Normal S1 Abdomen Exam: Positive: BS Hypoactive, Soft, Negative: Tenderness Assessment /Plan Problems (1) Hip fracture, left Status: Acute Problem Text: mechanical fall- s/p repair yesterday pain controlled (2) COPD (chronic obstructive pulmonary disease) Status: Chronic Problem Specific Plan: Monitor Clinically Problem Text: suspected (3) Infection of ANIMAL SHELTER SUPERVISOR (ventriculoperitoneal) shunt Status: Chronic (4) Hypertension Status: Chronic Problem Text: reasonably well controlled for the current setting (5) Hip fracture, right Status: Chronic Problem Text: Previous fracture Plan/Urinary Catheter Reason for insertion/continuin: Perioperative VS, I&O, 24H, Fishbone Vital Signs/I&O Vital Signs Date Time Temp Pulse Resp B/P (MAP) Pulse Ox O2 Delivery O2 Flow Rate FiO2 09/03/16 16:41 99.2 09/03/16 14:00 88 17 144/71 (95) 96 Nasal Cannula 2.0 I&O- Last 24 Hours up to 6 AM 09/03/16 06:00 Intake Total 1670 ml Output Total 1710 ml Balance -40 ml Laboratory Data 24H LABS Laboratory Tests 2 09/03/16 06:26: White Blood Count 12.4H, Red Blood Count 3.66L, Hemoglobin 11.1L, Hematocrit 34.3L, Mean Corpuscular Volume 93.7, Mean Corpuscular Hemoglobin 30.4, Mean Corpuscular Hemoglobin Concent 32.4, Red Cell Distribution Width 15.7H, Platelet Count 315, Neutrophils (%) (Auto) 72.1H, Lymphocytes (%) (Auto) 17.6L, Monocytes (%) (Auto) 6.9H, Eosinophils (%) (Auto) 1.9, Basophils (%) (Auto) 0.4 , Neutrophils # (Auto) 8.9H, Lymphocytes # (Auto) 2.3, Monocytes # (Auto) 0.9H, Eosinophils # (Auto) 0.2, Basophils # (Auto) 0.0, Large Unclassified Cells % 1.2 , Large Unclassified Cells # 0.1, Anion Gap 9, Glomerular Filtration Rate > 60.0 , Blood Urea Nitrogen 12, Creatinine 0.59, Sodium Level 138, Potassium Level 3.7 , Chloride Level 105, Carbon Dioxide Level 24, Calcium Level 8.9 CBC/BMP Laboratory Tests 09/03/16 06:26 Red Blood Count 3.66 L, Mean Corpuscular Volume 93.7, Mean Corpuscular Hemoglobin 30.4, Mean Corpuscular Hemoglobin Concent 32.4, Red Cell Distribution Width 15.7 H, Neutrophils (%) (Auto) 72.1 H, Lymphocytes (%) (Auto ) 17.6 L, Monocytes (%) (Auto) 6.9 H, Eosinophils (%) (Auto) 1.9, Basophils (%) (Auto) 0.4, Neutrophils # (Auto) 8.9 H, Lymphocytes # (Auto) 2.3, Monocytes # ( Auto) 0.9 H, Eosinophils # (Auto) 0.2, Basophils # (Auto) 0.0, Calcium Level 8.9 Microbiology Microbiology 09/02/16 Urine Culture - Final, Complete FLINT,NABOR Espinoza MD September 03, 2016 18:27
[2016-09-04] MEDS: NITROGLYCERIN 2% OINT 1 GM *U/D* PKT TOP SCH ×3 (03:25→23:00)
[2016-09-04] MEDS: ACETAMINOPHEN TAB 650MG DOSE (2X325MG) PO PRN ×2 (04:51→17:27)
[2016-09-04 06:00] VITALS: BP 157/72
[2016-09-04 07:10] LABS: BASO % 0.3 % (0.0-1.0); EOS # 0.2 K/mm3 (0.0-0.50); EOS % 1.4 % (0.0-3.0); LARGE UNSTAINED CELL # 0.2 K/mm3 (0.0-0.4); LARGE UNSTAINED CELL % 1.5 % (0.0-4.0); LYMPH % 15.6 % (24.0-44.0); MEAN CORPUSCULAR HEMOGLOBIN 30.8 pg (27.0-33.0); MEAN CORPUSCULAR HGB CONC 33.2 g/dl (32.0-36.5); MEAN CORPUSCULAR VOLUME 92.7 fl (80.0-96.0); MONO # 0.9 K/mm3 (0.0-0.8); MONO % 7.2 % (0.0-5.0); NEUTROPHILS # 9.3 K/mm3 (1.8-7.7); NEUTROPHILS % 74.1 % (36.0-66.0); PLATELET COUNT, AUTOMATED 324 k/mm3 (150-450); RED CELL DISTRIBUTION WIDTH 15.3 % (11.5-14.5); WHITE BLOOD COUNT 12.6 K/mm3 (4.0-10.0)
[2016-09-04 07:22] LABS: INR 1.28
[2016-09-04 07:34] LABS: ANION GAP 10 MEQ/L (8-16); BLOOD UREA NITROGEN 13 MG/DL (7-18); CALCIUM LEVEL 9.2 MG/DL (8.8-10.2); CARBON DIOXIDE LEVEL 25 MEQ/L (21-32); CHLORIDE LEVEL 105 MEQ/L (98-107); CREATININE FOR GFR 0.56 MG/DL (0.55-1.02); GLOMERULAR FILTRATION RATE > 60.0 (>39); GLUCOSE, FASTING 101 MG/DL (83-110); POTASSIUM SERUM 3.2 MEQ/L (3.5-5.1); SODIUM LEVEL 140 MEQ/L (136-145)
[2016-09-04] MEDS ORDERED: POTASSIUM CHLORIDE 10 MEQ SR TABLET PO ONE (08:00)
[2016-09-04] MEDS: ADVAIR DISKUS 250/50 INH PWD INH SCH ×2 (08:28→19:47)
[2016-09-04] MEDS: MIRALAX *UNIT DOSE* 17GM PACKET PO SCH (09:10)
[2016-09-04] MEDS: MULTIVITAMINS/MINERALS THERAP 1 TAB PO SCH (09:12)
[2016-09-04] MEDS: SERTRALINE HCL 50 MG TAB PO SCH (09:13)
[2016-09-04] MEDS: PANTOPRAZOLE 40MG TAB (PROTONIX) PO SCH (09:13)
[2016-09-04] MEDS: amLODIPine 10 MG TAB PO SCH (09:13)
[2016-09-04] MEDS: LISINOPRIL 5 MG TAB PO SCH (09:13)
[2016-09-04] MEDS: SENOKOT S TAB PO SCH ×2 (09:13→20:08)
[2016-09-04] MEDS ORDERED: ALBUTEROL SULFATE 2.5 MG/0.5 ML INH NEB SOLN NEB PRN (11:15)
[2016-09-04 14:00] VITALS: BP 145/67
--- NOTE | 2016-09-04 15:26 | RO ---
DATE OF PROCEDURE: 09/02/2016 PREOPERATIVE DIAGNOSIS: Impacted fracture of the left hip. POSTOPERATIVE DIAGNOSIS: Impacted fracture of the left hip. PROCEDURE PERFORMED: Closed reduction and percutaneous pinning of the left hip fracture. SURGEON: Ancelmo Thorpe MD ROOF BOLTER HELPER: ANESTHESIA: Spinal. ESTIMATED BLOOD LOSS: Replaced with crystalloid. COMPLICATIONS: No complications. The patient was found to have an impacted left fracture hip pain. Consent reviewed in detail with the patient. The patient wants to proceed. Medical optimization was verified. COMPONENTS USED: Include a 7.3 cannulated screw times two. DESCRIPTION OF PROCEDURE: Identified in the holding area. Site and side verified. Brought to the operating room. Once spinal was administered, positioned on the fracture table for exposure of the left hip. Sterilely prepped and draped in the usual fashion for exposure. Incision made with a 10 blade using fluoroscopy. The lateral fascia was opened longitudinally to allow passage of guide. Threaded guidewires were placed in the femoral head. Position guidewire adjusted and verified fluoroscopically in the AP and lateral plane. The remaining two guidewire were then installed using the target and again verified in AP and lateral plane. Cannulated drill utilized to open lateral femoral cortex. Guidewire was measured and the appropriate 7.3 cannulated screw installed under power and final tightening by hand. Final fluoroscopic images obtained and verified good alignment. No breach of femoral head. Irrigation accomplished. Lateral fascia reapproximated. Deep dermis reapproximated. Tamiko used on skin. Sterile dressing applied. Table reassembled. The patient was moved to the hospital bed and moved to recovery in good condition. For further details, please refer to medical record.
--- NOTE | 2016-09-04 16:46 | IPNPDOC ---
Subjective Date Seen The patient was seen on 09/04/16. Subjective Chief Complaint/HPI The patient is a 71-year-old female admitted with a reason for visit of Left Hip Fracture. Events since last encounter Feeling ok, has pain- wonders when surgery will be done. (It was already done) tolerating diet Constitutional: Denies: Chills, Fever Pulmonary: Denies: Dyspnea, Cough Cardiovascular: Denies: Chest Pain, Palpitations Gastrointestinal: Denies: Nausea, Vomiting, Abdominal Pain Objective Physical Examination General Exam: Positive: Alert, Cooperative, No Acute Distress Eye Exam: Negative: Sclera icteric Chest Exam: Positive: Clear to auscultation, Diminished, Negative: Rhonchi, Wheezing Heart Exam: Positive: Rate Normal, Regular Rhythm, Normal S1 Abdomen Exam: Positive: BS Hypoactive, Soft, Negative: Tenderness Assessment /Plan Problems (1) Hip fracture, left Status: Acute Problem Text: mechanical fall- s/p repair yesterday pain controlled (2) COPD (chronic obstructive pulmonary disease) Status: Chronic Problem Specific Plan: Monitor Clinically Problem Text: suspected (3) 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 tomorrow to continue rehab (6) Hypokalemia Status: Resolved Plan/Urinary Catheter Reason for insertion/continuin: Perioperative VS, I&O, 24H, Fishbone Vital Signs/I&O Vital Signs Date Time Temp Pulse Resp B/P (MAP) Pulse Ox O2 Delivery O2 Flow Rate FiO2 09/04/16 09:13 104/57 09/04/16 09:13 84 09/04/16 09:00 Room Air 09/04/16 06:00 98.8 16 94 2.0 I&O- Last 24 Hours up to 6 AM 09/04/16 05:59 Intake Total 560 ml Output Total 500 ml Balance 60 ml Laboratory Data 24H LABS Laboratory Tests 2 09/04/16 06:18: White Blood Count 12.6H, Red Blood Count 3.80L, Hemoglobin 11.7L, Hematocrit 35.2L, Mean Corpuscular Volume 92.7, Mean Corpuscular Hemoglobin 30.8, Mean Corpuscular Hemoglobin Concent 33.2, Red Cell Distribution Width 15.3H, Platelet Count 324, Neutrophils (%) (Auto) 74.1H, Lymphocytes (%) (Auto) 15.6L, Monocytes (%) (Auto) 7.2H, Eosinophils (%) (Auto) 1.4, Basophils (%) (Auto) 0.3 , Neutrophils # (Auto) 9.3H, Lymphocytes # (Auto) 2.0, Monocytes # (Auto) 0.9H, Eosinophils # (Auto) 0.2, Basophils # (Auto) 0.0, Large Unclassified Cells % 1.5 , Large Unclassified Cells # 0.2, Prothrombin Time 16.1H, Prothromb Time International Ratio 1.28, Anion Gap 10, Glomerular Filtration Rate > 60.0, Blood Urea Nitrogen 13, Creatinine 0.56, Sodium Level 140, Potassium Level 3.2L , Chloride Level 105, Carbon Dioxide Level 25, Calcium Level 9.2 CBC/BMP Laboratory Tests 09/04/16 06:18 Red Blood Count 3.80 L, Mean Corpuscular Volume 92.7, Mean Corpuscular Hemoglobin 30.8, Mean Corpuscular Hemoglobin Concent 33.2, Red Cell Distribution Width 15.3 H, Neutrophils (%) (Auto) 74.1 H, Lymphocytes (%) (Auto ) 15.6 L, Monocytes (%) (Auto) 7.2 H, Eosinophils (%) (Auto) 1.4, Basophils (%) (Auto) 0.3, Neutrophils # (Auto) 9.3 H, Lymphocytes # (Auto) 2.0, Monocytes # ( Auto) 0.9 H, Eosinophils # (Auto) 0.2, Basophils # (Auto) 0.0, Calcium Level 9.2 Microbiology Microbiology 09/02/16 Urine Culture - Final, Complete FLINT,NABOR Espinoza MD September 04, 2016 16:46
[2016-09-04] MEDS ORDERED: WARFARIN SOD 3 MG TAB PO ONE (17:00)
[2016-09-04 18:53] VITALS: BP 127/59
[2016-09-04 19:48] VITALS: O2SAT 90
[2016-09-04 22:00] VITALS: BP 134/77
[2016-09-05] MEDS: NITROGLYCERIN 2% OINT 1 GM *U/D* PKT TOP SCH (03:45)
[2016-09-05 06:00] VITALS: BP 135/74
[2016-09-05] MEDS: ACETAMINOPHEN TAB 650MG DOSE (2X325MG) PO PRN (06:49)
[2016-09-05] MEDS ORDERED: [UNRECOGNIZED DRUG - OTHER] XX SCH (07:00)
[2016-09-05 07:37] LABS: BASO % 0.4 % (0.0-1.0); EOS # 0.3 K/mm3 (0.0-0.50); EOS % 2.9 % (0.0-3.0); LARGE UNSTAINED CELL # 0.2 K/mm3 (0.0-0.4); LARGE UNSTAINED CELL % 1.8 % (0.0-4.0); LYMPH # 2.3 K/mm3 (1.5-4.5); LYMPH % 18.4 % (24.0-44.0); MEAN CORPUSCULAR HEMOGLOBIN 30.9 pg (27.0-33.0); MEAN CORPUSCULAR HGB CONC 33.1 g/dl (32.0-36.5); MEAN CORPUSCULAR VOLUME 93.3 fl (80.0-96.0); MONO # 0.8 K/mm3 (0.0-0.8); MONO % 6.5 % (0.0-5.0); NEUTROPHILS # 8.1 K/mm3 (1.8-7.7); NEUTROPHILS % 70.1 % (36.0-66.0); PLATELET COUNT, AUTOMATED 325 k/mm3 (150-450); RED CELL DISTRIBUTION WIDTH 15.4 % (11.5-14.5); WHITE BLOOD COUNT 11.5 K/mm3 (4.0-10.0)
[2016-09-05 07:42] LABS: INR 1.81
[2016-09-05] MEDS: ADVAIR DISKUS 250/50 INH PWD INH SCH (07:54)
[2016-09-05] MEDS ORDERED: TRAM50TA2 PO (07:55)
[2016-09-05] MEDS ORDERED: COUM2.5T11 PO (07:55)
[2016-09-05 08:17] LABS: ANION GAP 10 MEQ/L (8-16); BLOOD UREA NITROGEN 16 MG/DL (7-18); CALCIUM LEVEL 8.9 MG/DL (8.8-10.2); CARBON DIOXIDE LEVEL 24 MEQ/L (21-32); CHLORIDE LEVEL 106 MEQ/L (98-107); CREATININE FOR GFR 0.56 MG/DL (0.55-1.02); GLOMERULAR FILTRATION RATE > 60.0 (>39); GLUCOSE, FASTING 103 MG/DL (83-110); POTASSIUM SERUM 3.8 MEQ/L (3.5-5.1); SODIUM LEVEL 140 MEQ/L (136-145)
[2016-09-05] MEDS ORDERED: SENN1TAB2 PO (08:23)
[2016-09-05 09:02] VITALS: BP 135/74
[2016-09-05] MEDS: MIRALAX *UNIT DOSE* 17GM PACKET PO SCH ×2 (09:02→10:02)
[2016-09-05] MEDS: LISINOPRIL 5 MG TAB PO SCH (09:02)
[2016-09-05] MEDS: PANTOPRAZOLE 40MG TAB (PROTONIX) PO SCH (09:02)
[2016-09-05] MEDS: MULTIVITAMINS/MINERALS THERAP 1 TAB PO SCH (09:02)
[2016-09-05] MEDS: amLODIPine 10 MG TAB PO SCH (09:02)
[2016-09-05] MEDS: SERTRALINE HCL 50 MG TAB PO SCH (09:03)
[2016-09-05] MEDS: SENOKOT S TAB PO SCH (09:03)
--- NOTE | 2016-09-06 06:34 | DSES ---
DATE OF ADMISSION: 09/02/2016 DATE OF DISCHARGE: 09/05/2016 SPECIALISTS INVOLVED DURING HER STAY: 1. Dr. Nicholas Luis 2. Dr. Ancelmo Thorpe DISCHARGE DIAGNOSES: 1. Impacted fracture of the left hip. 2. Chronic obstructive pulmonary disease. 3. History of infected DUMPSTER OPERATOR shunt. 4. Hypertension. 5. History of previous hip fracture. 6. Anemia. 7. Leukocytosis. 8. Hypokalemia. PROCEDURES PERFORMED DURING STAY: Repair of left hip. SUMMARY OF HOSPITALIZATION: This is a patient who had been staying at [facility]) who suffered a mechanical fall and hip fracture who was brought to the hospital for evaluation and admitted to the hospitalist service. She underwent uncomplicated repair and recovery and on the was thought to be optimized for return to [facility]. On the date of discharge, the patient is feeling well. She has no complaints of pain, chest pain, shortness of breath. She is tolerating a diet. Temperature 99.2. Pulse 88. Respiratory rate 16. Blood pressure 135/74. 93% on room air. Breathing is symmetrical, rested. Heart is in a regular rate and rhythm. Abdomen soft, doughy, nontender. DISCHARGE INSTRUCTIONS: Return to visit Dr. Thorpe in two weeks. Activity as tolerated. Diet as tolerated. Continue Optifoam to wound. She was given a prescription for Senokot-S one tablet by mouth twice daily, tramadol one to two tablets every four hours as needed for pain, Coumadin 2.5 mg as directed, PT/INR is instructed by orthopedics, Tylenol 650 mg four times a day and as needed for pain, bisacodyl suppository as needed for constipation, milk of magnesia as needed for constipation, multivitamin tablet daily, omeprazole 20 mg daily, Advair 250/50 inhaled twice daily, sertraline 50 mg by mouth daily and enema as needed.
== END 2016-09-05 11:45 | DRG 482 ==
LOC: EDBD 00:29 → M ED 01:44 → M ED INP 01:46 → M MS5PR 04:09
PROVIDERS: ADMIT General Practice; ATTEND Internal Medicine
PROC: 0QS734Z Reposition Left Upper Femur with Internal Fixation Device, Percutaneous Approach (ICD-10-PCS; principal; 2016-09-02 07:50)
DX: S72.012A Unspecified intracapsular fracture of left femur, initial encounter for closed fracture (principal); I10 Essential (primary) hypertension; J44.9 Chronic obstructive pulmonary disease, unspecified; K21.9 Gastro-esophageal reflux disease without esophagitis; M81.0 Age-related osteoporosis without current pathological fracture; M19.90 Unspecified osteoarthritis, unspecified site; W01.0XXA Fall on same level from slipping, tripping and stumbling without subsequent striking against object, initial encounter; Y92.129 Unspecified place in nursing home as the place of occurrence of the external cause; Z66 Do not resuscitate; H40.9 Unspecified glaucoma; D64.9 Anemia, unspecified; D72.829 Elevated white blood cell count, unspecified; E87.6 Hypokalemia; Z87.891 Personal history of nicotine dependence; Z86.73 Personal history of transient ischemic attack (TIA), and cerebral infarction without residual deficits; Z79.899 Other long term (current) drug therapy

== ENCOUNTER 2016-09-10 13:41 | Observation (INO) | payer MEDICARE, MEDICAID ==
[~2016-09-10] VITALS: Ht 154.9 cm; Wt 48.7 kg
[~2016-09-10 13:41] MED LIST changes: -COUM1TAB17 PO; -RANI15TA PO; -SYMB16INH INH
[2016-09-10] MEDS ORDERED: SYMB16INH INH (13:57)
[2016-09-10] MEDS ORDERED: COUM2TAB10 PO (13:57)
[2016-09-10] MEDS ORDERED: RANI15TA PO (13:57)
[2016-09-10 14:15] LABS: BASO # 0.1 K/mm3 (0.0-0.2); BASO % 0.9 % (0.0-1.0); EOS # 0.4 K/mm3 (0.0-0.50); EOS % 4.2 % (0.0-3.0); LARGE UNSTAINED CELL # 0.2 K/mm3 (0.0-0.4); LARGE UNSTAINED CELL % 2.6 % (0.0-4.0); LYMPH # 3.1 K/mm3 (1.5-4.5); LYMPH % 30.8 % (24.0-44.0); MEAN CORPUSCULAR HEMOGLOBIN 30.3 pg (27.0-33.0); MEAN CORPUSCULAR HGB CONC 32.3 g/dl (32.0-36.5); MONO # 0.5 K/mm3 (0.0-0.8); MONO % 5.1 % (0.0-5.0); NEUTROPHILS # 5.3 K/mm3 (1.8-7.7); NEUTROPHILS % 56.5 % (36.0-66.0); PLATELET COUNT, AUTOMATED 413 k/mm3 (150-450); WHITE BLOOD COUNT 9.4 K/mm3 (4.0-10.0)
[2016-09-10] MEDS ORDERED: ACETAMINOPHEN 650 MG SUPP PR ONE (14:15)
[2016-09-10 14:28] LABS: ALBUMIN 3.4 GM/DL (3.2-5.2); ALBUMIN/GLOBULIN RATIO 0.74 (1.00-1.93); ALKALINE PHOSPHATASE 79 U/L (45-117); ALT/SGPT 22 U/L (12-78); ANION GAP 6 MEQ/L (8-16); AST/SGOT 20 U/L (15-37); BILIRUBIN,DIRECT < 0.1 MG/DL (0.0-0.2); BILIRUBIN,TOTAL 0.2 MG/DL (0.2-1.0); BLOOD UREA NITROGEN 20 MG/DL (7-18); CALCIUM LEVEL 9.2 MG/DL (8.8-10.2); CARBON DIOXIDE LEVEL 29 MEQ/L (21-32); CHLORIDE LEVEL 103 MEQ/L (98-107); CREATININE FOR GFR 0.81 MG/DL (0.55-1.02); GLOMERULAR FILTRATION RATE > 60.0 (>39); GLUCOSE, FASTING 111 MG/DL (83-110); POTASSIUM SERUM 3.9 MEQ/L (3.5-5.1); SODIUM LEVEL 138 MEQ/L (136-145)
--- NOTE | 2016-09-10 15:00 | REP ---
CT HEAD WITHOUT CONTRAST: HISTORY: Altered mental status. COMPARISON: 09/02/2016 Areas of decreased attenuation are present in the periventricular and subcortical white matter. This represents small vessel ischemic disease. There is no intraparenchymal hemorrhage, mass or midline shift. The ventricular system is dilated consistent with mild hydrocephalus. There is no extracerebral collection. The patient is status post coiling of basilar and right internal carotid artery aneurysms. The visualized sinuses are clear. IMPRESSION: 1. Small vessel ischemic disease. 2. Mild hydrocephalus, unchanged compared to the previous study. Signed by Fritz Mcclure MD 09/10/2016 03:12 P
[2016-09-10 15:03] LABS: INR 2.5
--- NOTE | 2016-09-10 15:56 | REP ---
Chest one-view HISTORY: Altered mental status Comparison: 09/02/2016 The lungs are clear. The heart is normal in size. The pulmonary vasculature is normal in appearance. Impression: No acute disease. Signed by Fritz Mcclure MD 09/10/2016 03:47 P
[2016-09-10 16:07] LABS: FREE T4 1.03 NG/DL (0.76-1.46)
--- NOTE | 2016-09-10 16:11 | REP ---
PELVIS AND BILATERAL HIPS: AP view of the pelvis and AP and frog leg view of the bilateral hips were performed. Metallic screws are seen in the proximal femurs bilaterally for prior femoral neck fractures. No new fracture or dislocation is seen bilaterally. IMPRESSION: Old bilateral hip fractures. No new fracture or dislocation. Signed by Michael Murcia MD 09/12/2016 06:59 P
[2016-09-10] MEDS ORDERED: TRAM50TA2 PO (17:13)
[2016-09-10] MEDS ORDERED: SENN8.6T7 PO (17:13)
[2016-09-10] MEDS ORDERED: BISACODYL 10 MG SUPP PR PRN (17:30)
[2016-09-10] MEDS ORDERED: BISACODYL 5 MG TAB PO PRN (17:30)
[2016-09-10] MEDS ORDERED: FLEET ENEMA PR PRN (17:30)
[2016-09-10] MEDS ORDERED: traMADol 50 MG TAB PO PRN (17:30)
[2016-09-10] MEDS ORDERED: MOM 30ML SUSPENSION UDC PO PRN (17:30)
[2016-09-10] MEDS ORDERED: ACETAMINOPHEN TAB 650MG DOSE (2X325MG) PO PRN ×2 (17:30→17:45)
[2016-09-10] MEDS ORDERED: ONDANSETRON 4MG/2ML VIAL (J2405) IV PRN (17:30)
[2016-09-10] MEDS ORDERED: ACETAMINOPHEN 325 MG TAB PO PRN (17:30)
[2016-09-10] MEDS ORDERED: IPRATROPIUM 0.5MG/ALBUTEROL 2.5MG INH SOL UD 3ML (DUONEB)(J7620) NEB PRN (17:45)
[2016-09-10] MEDS ORDERED: HEPARIN SOD (PORCINE) 5000 UNITS/ML VIAL IV PRN (18:30)
[2016-09-10] MEDS ORDERED: ACETAMINOPHEN 325 MG TAB PO SCH (20:00)
[2016-09-10 20:15] VITALS: BP 108/54
[2016-09-10] MEDS: FAMOTIDINE 20 MG TAB PO SCH (20:37)
[2016-09-10] MEDS: ACETAMINOPHEN TAB 650MG DOSE (2X325MG) PO SCH (20:37)
[2016-09-10] MEDS: SERTRALINE HCL 50 MG TAB PO SCH (20:37)
[2016-09-10] MEDS: HEPARIN DRIP 25,000 UNITS in APPROPRIATE DILUENT 1 EA IV SCH (20:42)
--- NOTE | 2016-09-10 20:47 | ECGEPIP ---
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
--- NOTE | 2016-09-10 21:51 | HPE ---
DATE OF ADMISSION: 09/10/2016 PRIMARY CARE PHYSICIAN: Dr. Currie. PRIMARY CARE PHYSICIAN AT [facility]: Dr. Tran. INFECTIOUS DISEASE: Dr. Lao. CODE STATUS: DO NOT RESUSCITATE/DO NOT INTUBATE. CHIEF COMPLAINT: Metabolic encephalopathy. HISTORY OF PRESENT ILLNESS: Ms. Murcia is a 73-year-old resident of [facility]) who presented to the emergency room (ER) due to experiencing altered mental status and being more confused today. Patient was admitted in [facility] on 09/02/2016 and was discharged on 09/05/2016, due to impact fracture of the left hip and had closed reduction and percutaneous pinning of the left hip, which was done on 09/02/2016. Today, according to the patient's daughter, who accompanied her, expressed that [facility] called her sister and mentioned that patient is more confused. Patient has a history of normal pressure hydrocephalus. Patient has received a lumbar puncture multiple times. Patient had a ventriculoperitoneal shunt (ACCESS LEAD) shunt, which was installed in 2014; however, it was removed in 03/2016 due to shunt infection. Patient was seen by Dr. Kumari and it has been discussed regarding another ACCESS LEAD shunt. Due to the ACCESS LEAD shunt infection, patient was followed by Dr. Lao. Patient denied fever or night sweats; however, patient has chills, but expressed that this is a chronic issue. Patient denied losing bowel or bladder control. Patient uses a walker or wheelchair and she and the daughter does not know if her gait has changed recently. Patient denies nausea, vomiting, hematuria or hematochezia. Patient also denies vision changes or hearing changes or seizure-type activities. ALLERGIES: AUGMENTIN causes gastrointestinal (GI) intolerance. CIPRO causes hives. CODEINE SULFATE causes hives. LIPITOR causes muscle aches. SULF ACED R causes hives. HOME MEDICATIONS: - acetaminophen 650 mg by mouth four times a day - acetaminophen 650 mg by mouth daily as needed for pain - bisacodyl 10 mg by mouth daily as needed constipation - Symbicort 16/4.5 two puffs inhaled twice a day - Docusate one tablet twice a day - Milk of Magnesia 30 mL by mouth daily as needed for constipation - multivitamin one tablet by mouth daily - Zantac one tablet twice a day - sertraline hydrochloride (HCL) 50 mg by mouth at bedtime - enema 7 gram-19 gm/1118 mL one enema per rectum daily and as needed for constipation - tramadol 50 mg by mouth four times a day - warfarin 2 mg by mouth every evening PAST MEDICAL HISTORY: 1. Cataracts and glaucoma left eye. 2. Osteoarthritis with a specific osteoarthritis type. 3. Osteoporosis. 4. Essential hypertension. 5. Subarachnoid hemorrhage. 6. Chronic obstructive pulmonary disease. 7. . 8. Tobacco use disorder. 9. Gastroesophageal reflux disease (GERD). 10. Esophagitis, presents nonspecific. 11. Transient ischemic attack (TIA). PAST SURGICAL HISTORY: 1. Splenectomy 1999. 2. Brain aneurysm 2008. 3. Hysterectomy. 4. Internal carotid artery (ICA) and basilar tip aneurysm coiled, Dr. Martin, 10/16/2014. 5. Right frontal ventriculoperitoneal (ACCESS LEAD) shunt, Dr. Forrest, 02/20/2015. FAMILY HISTORY: Patient's father due to bone cancer at age 78. Patient's mother due to blockage of carotid artery at 81. Patient has two sisters and three brothers. One brother due to heart attack. Patient's sister due to a brain aneurysm. Patient has three daughters and one son. However, patient does not have any family history of breast, ovarian or colorectal cancer. REVIEW OF SYSTEMS: GENERAL: Patient denies fever, night sweats; however, patient expressed that she has chills. Patient denies weight loss or weight gain. HEENT: Patient denies acute vision or hearing changes. Patient also denies problems with chewing food or sinusitis. NECK: Patient denies lumps, bumps or decreased range of motion of her neck. HEART: Patient denies palpitations, racing or skipping heartbeat, or chest pain. LUNGS: Patient has chronic cough; however, patient denies that her cough has been increased. Patient denies shortness of breath or wheezing. ABDOMEN: Patient denies abdominal pain, nausea, vomiting, diarrhea, constipation, melena, hematochezia, hemoptysis, or emesis. NEUROLOGICAL: Patient has a history of transient ischemic attack (TIA) in 2009, affecting lower extremity weakness; however, patient has history of seizure or seizure-type activities. PHYSICAL EXAMINATION: VITAL SIGNS: Temperature 98.4, pulse 56, respiratory rate 18, blood pressure 125/61, pulse oximetry 95% on room air. GENERAL APPEARANCE: Patient was lying in bed, no acute distress. Patient was awake and oriented to person, but not to time or place. NECK: No lymphadenopathy. No thyromegaly. No jugular venous distention (JVD). HEART: Regular rate and rhythm. Normal S1, S2. ABDOMEN: Soft, nontender. Positive bowel sounds in all quadrants. LUNGS: Patient has scattered rhonchi at the base of the lungs. Good air movement. EXTREMITIES: No lower extremity edema. Plus 2 pulses in both lower extremities. Patient has decreased range of motion on the left lower extremity compared to right lower extremity due to recent left hip surgery. Surgical site is clean and surgical dressing is in place and clean. No drainage or bleeding was noticed. Patient also had right hip surgery two months ago and the surgical site is healing well. NEUROLOGIC: Cranial nerves II-XII were intact. No focal deficiencies. Patient has normal sensation in both upper and lower extremities. LABORATORY DATA: White blood cells 4.9, red blood cells 3.99, hemoglobin 12.1, hematocrit 37.5, MCV 94, MCH 30.3 MCHC 32.3, RDW 15, platelet count 413. Neutrophil percentage 56.5, lymphocyte percentage 30.8, monocyte percentage 5.1, eosinophile percentage 4.2, basophile percentage 0.9, leukocyte percentage 2.6. PT 27.1. INR 2.5. APPT 42.9. Sodium 138, potassium 3.9, chloride 103, carbon dioxide 29, anion gap 6, BUN 20, creatinine 0.8, glomerular filtration rate more than 60, fasting glucose 111, calcium 9.2. Total bilirubin 0.2, direct bilirubin less than 0.1, AST 20, ALT 22, alkaline phosphatase 79, total creatinine kinase 113. CK-MB 1, CK-MB relative index 0.88. Troponin-I less than 0.02. Total protein 8. Albumin 3.4. Thyroid stimulating hormone (TSH) 0.125, Free T4 1.03. IMAGING TECHNIQUES: Head CT shows small vessel ischemic disease, mild hydrocephalus, unchanged from the previous study, which was done on 09/02/2016. Chest x-ray shows no acute disease. Hip bilateral x-ray, which shows old bilateral hip fracture. No new fractures or dislocations. ASSESSMENT AND PLAN: 1. Metabolic encephalopathy. At this point, patient is on warfarin; however, we will hold the warfarin and we will start the patient on heparin drip. The reason the patient is on warfarin is due to postoperative orthopedics. We will continue monitoring patient's INR. Patient needs to have lumbar puncture (LP) is her normal pressure hydrocephalus. We will consult interventional radiology (IR) for performance and we will ask regarding the required INR. At this time, we will continue patient on heparin drip and will hold warfarin. We will continue monitoring patient for any abnormal symptoms. 2. Left hip fracture. Patient had surgery done in August. She went under closed reduction and percutaneous pinning of the left hip. Patient is stable at this time. Patient was on warfarin; however, we are holding the warfarin due to possibility of requiring lumbar puncture (LP). At this time, we have started the patient on an heparin drip. 3. Chronic obstructive pulmonary disease (COPD). At home, patient is on Symbicort 160/4.5; however, we added DuoNeb and our suggestion is for 88% to 92% saturation. 4. Osteoarthritis and osteoporosis. At home, patient is on tramadol; however, I am holding tramadol due to metabolic encephalopathy, due to confusion. We will continue to monitor patient for any abnormal symptoms. 5. Deep venous thrombosis (DVT) prophylaxis. Patient is on heparin drip. 6. Essential hypertension. Patient's blood pressure is stable at this time. We will continue monitoring patient for any abnormal symptoms. 7. History of transient ischemic attack (TIA). This is a chronic issues. At this time, patient is stable. Patient does not have signs or symptoms of TIA. 8. Gastroesophageal reflux disease (GERD). At this time, I have started the patient on Protonix 40 mg by mouth daily. 9. History of tobacco abuse. This is a chronic issue. My preceptor for this patient encounter was Dr. Demetra Beck. The preceptor was physically present in the building during the encounter and was fully available as needed. All aspects of the patient interview, examination, medical decision-making process, and medical care plan development were reviewed and approved by the preceptor. The preceptor is aware and concurs with the plan as stated in the body of this note and will attest to such by his/her co-signature.
[2016-09-10] MEDS: SYMBICORT 160/4.5MCG INHALER 6GM INH SCH (22:53)
[2016-09-10] MEDS: IPRATROPIUM 0.5MG/ALBUTEROL 2.5MG INH SOL UD 3ML (DUONEB)(J7620) NEB SCH (22:53)
[2016-09-11] MEDS: IPRATROPIUM 0.5MG/ALBUTEROL 2.5MG INH SOL UD 3ML (DUONEB)(J7620) NEB SCH ×4 (01:03→18:36)
[2016-09-11] MEDS: ACETAMINOPHEN TAB 650MG DOSE (2X325MG) PO SCH ×4 (05:27→21:02)
[2016-09-11 05:53] LABS: BASO # 0.1 K/mm3 (0.0-0.2); BASO % 0.9 % (0.0-1.0); EOS # 0.4 K/mm3 (0.0-0.50); EOS % 4.8 % (0.0-3.0); LARGE UNSTAINED CELL # 0.2 K/mm3 (0.0-0.4); LARGE UNSTAINED CELL % 2.4 % (0.0-4.0); LYMPH # 3.8 K/mm3 (1.5-4.5); LYMPH % 44.8 % (24.0-44.0); MEAN CORPUSCULAR HEMOGLOBIN 30.4 pg (27.0-33.0); MEAN CORPUSCULAR HGB CONC 32.6 g/dl (32.0-36.5); MEAN CORPUSCULAR VOLUME 93.5 fl (80.0-96.0); MONO # 0.5 K/mm3 (0.0-0.8); MONO % 5.7 % (0.0-5.0); NEUTROPHILS # 3.3 K/mm3 (1.8-7.7); NEUTROPHILS % 41.5 % (36.0-66.0); PLATELET COUNT, AUTOMATED 412 k/mm3 (150-450); RED CELL DISTRIBUTION WIDTH 14.9 % (11.5-14.5)
[2016-09-11 05:55] LABS: INR 2.23
[2016-09-11 06:00] VITALS: BP 156/70
[2016-09-11 06:14] LABS: ALBUMIN 3.2 GM/DL (3.2-5.2); ALBUMIN/GLOBULIN RATIO 0.78 (1.00-1.93); ALKALINE PHOSPHATASE 72 U/L (45-117); ALT/SGPT 23 U/L (12-78); ANION GAP 8 MEQ/L (8-16); AST/SGOT 16 U/L (15-37); BILIRUBIN,TOTAL 0.2 MG/DL (0.2-1.0); BLOOD UREA NITROGEN 19 MG/DL (7-18); CALCIUM LEVEL 9.2 MG/DL (8.8-10.2); CARBON DIOXIDE LEVEL 28 MEQ/L (21-32); CHLORIDE LEVEL 107 MEQ/L (98-107); GLOMERULAR FILTRATION RATE > 60.0 (>39); GLUCOSE, FASTING 87 MG/DL (83-110); MAGNESIUM LEVEL 2.2 MG/DL (1.8-2.4); POTASSIUM SERUM 3.9 MEQ/L (3.5-5.1); SODIUM LEVEL 143 MEQ/L (136-145); TOTAL PROTEIN 7.3 GM/DL (6.4-8.2)
[2016-09-11] MEDS: SYMBICORT 160/4.5MCG INHALER 6GM INH SCH ×3 (07:50→20:35)
[2016-09-11] MEDS: FAMOTIDINE 20 MG TAB PO SCH ×2 (09:42→21:02)
[2016-09-11] MEDS: SENOKOT S TAB PO SCH (09:42)
[2016-09-11] MEDS: MULTIVITAMINS/MINERALS THERAP 1 TAB PO SCH (09:42)
[2016-09-11] MEDS: PANTOPRAZOLE 40MG TAB (PROTONIX) PO SCH (09:42)
[2016-09-11 14:00] VITALS: BP 115/55
--- NOTE | 2016-09-11 14:46 | IPNPDOC ---
Text Note Date of Service The patient was seen on 09/11/16. NOTE Subjective: Pt and daughter at bedside feel that the patient is back to her baseline. No CP/Palpitations/SOB. No ENRIQUEZ. Objective: Vitals: (see below) General: No acute distress, laying comfortably in bed. HEENT: Moist mucous membranes. Neck: No JVD or lymphadenopathy Cardiac: RRR, No murmurs Pulm: Clear to auscultation b/l. No wheezing, rhonchi Abd: NT/ND + BS Ext: No edema or cyanosis Neuro: AAOx3 Strength 08/16 BUE and BLE. CN 2-12 intact. F to N intact Negative pronator drift. Negative Babinki. Sensation to fine touch intact. Labs (see below) Images: CT Head 07/11/16 IMPRESSION: 1. Small vessel ischemic disease. 2. Mild hydrocephalus, unchanged compared to the previous study. CXR 07/11/16 Impression: No acute disease. X ray hips IMPRESSION: Old bilateral hip fractures. No new fracture or dislocation. Assessment/Plan 1. AMS - resolved. ?Medication related - tramadol. UA/CXR negative. No diarrhea. Afebrile. No leukocytosis. CT head with no change in mild hydrocephalus. MRI brain pending. If recurrent will obtain LP. In the meantime, pt has no focal deficits, and back to baseline - will continue to observe. 2. H/o NPH s/p STORE CLERK infection and removal 03/2016. Stable. Cont to monitor. 3. Recent left hip s/p repair on coumadin. Therapeutic. If INR<2, will restart heparin. 4. COPD - stable. cont nebs 5. OA/Osteoporosis - stable 6. HTN - controlled 7. H/o 8. GERD - on PPI 9. H/o Tobacco abuse DVT prophy: On coumadin. VS,Fishbone, I+O VS, Fishbone, I+O Laboratory Tests 09/11/16 05:38 Red Blood Count 3.81 L, Mean Corpuscular Volume 93.5, Mean Corpuscular Hemoglobin 30.4, Mean Corpuscular Hemoglobin Concent 32.6, Red Cell Distribution Width 14.9 H, Neutrophils (%) (Auto) 41.5, Lymphocytes (%) (Auto) 44.8 H, Monocytes (%) (Auto) 5.7 H, Eosinophils (%) (Auto) 4.8 H, Basophils (%) (Auto) 0.9, Neutrophils # (Auto) 3.3, Lymphocytes # (Auto) 3.8, Monocytes # ( Auto) 0.5, Eosinophils # (Auto) 0.4, Basophils # (Auto) 0.1, Calcium Level 9.2, Aspartate Amino Transf (AST/SGOT) 16, Alanine Aminotransferase (ALT/SGPT) 23, Alkaline Phosphatase 72, Total Bilirubin 0.2, Total Protein 7.3, Albumin 3.2 Vital Signs Date Time Temp Pulse Resp B/P (MAP) Pulse Ox O2 Delivery O2 Flow Rate FiO2 09/11/16 06:00 97.5 64 18 156/70 (98) 95 Room Air 09/10/16 20:15 2.0 I&O- Last 24 Hours up to 6 AM 09/11/16 05:59 Intake Total 180 ml Output Total 200 ml Balance -20 ml KAVYA GOLDSMITH MD September 11, 2016 14:46
[2016-09-11 16:26] LABS: INR 2.06
--- NOTE | 2016-09-11 20:50 | REPUSA ---
CLINICAL HISTORY: AMS. TECHNIQUE: MRI of the brain was performed without administration of intravenous contrast material. T1 spine echo, T2 fast spin echo and FLAIR sequences were obtained in sagittal, axial and coronal plane s. COMPARISON: Correlation is made with CT of the brain dated 09/02/2016. FINDINGS: The sella and parasellar regions are unremarkable in appearance. The corpus callosum and cerebellar t onsils are of normal configuration and position. There are no intra or extra-axial collections. There is no mass effect or midline shift. There is no evidence of hematoma formation. There is no hydrocep halus. The brain stem shows no mass effects, infarcts or hemorrhage. There are no cerebellopontine tumors. T he acoustic nerves are symmetrical. No cerebellar intra-axial pathology delineated. The fourth ventri rocco and aqueduct are normal. No abnormalities of the optic nerves are identified. No dural or subdura l masses or collections are detected. There is evidence for generalized symmetrical dilatation of the ventricles and cortical sulci consist ent with parenchymal atrophy. There are bilateral periventricular and subcortical T2 and FLAIR hyperintensities extending into cent rum [place] compatible with chronic white matter ischemic disease. The visualized arterial structures demonstrate normal appearing flow voids. The VII and VIII nerve bu ndles are visualized and are unremarkable in appearance. Mucosal thickening is seen involving bilateral ethmoid and maxillary sinuses compatible with chronic sinusitis. Metallic clip is noted in the region of ute of [place] compatible with prior aneurysmal clipping. There is evidence of tract in right frontal lobe compatible with previously removed BIT SHAVER shunt which wa s entering via frontal chencho hole. Diffusion weighted sequence demonstrates no evidence of restriction. IMPRESSION: 1. Generalized age-appropriate parenchymal atrophy. 2. Bilateral periventricular and subcortical white matter chronic ischemic changes. 3. Chronic ethmoid and maxillary sinusitis. 4. No evidence of acute intracranial pathology. 5. Evidence of postsurgical changes. Thank you for your kind referral of this patient. We appreciate the opportunity to participate in th is patient's care.
[2016-09-11] MEDS: SERTRALINE HCL 50 MG TAB PO SCH (21:02)
[2016-09-11 22:00] VITALS: BP 145/66
[2016-09-12] MEDS: IPRATROPIUM 0.5MG/ALBUTEROL 2.5MG INH SOL UD 3ML (DUONEB)(J7620) NEB SCH ×4 (01:29→18:47)
[2016-09-12] MEDS: ACETAMINOPHEN TAB 650MG DOSE (2X325MG) PO SCH ×4 (05:32→20:12)
[2016-09-12 06:00] VITALS: BP 148/71
[2016-09-12 06:15] LABS: BASO # 0.1 K/mm3 (0.0-0.2); BASO % 0.7 % (0.0-1.0); EOS # 0.4 K/mm3 (0.0-0.50); EOS % 4.7 % (0.0-3.0); LARGE UNSTAINED CELL # 0.2 K/mm3 (0.0-0.4); LARGE UNSTAINED CELL % 2.7 % (0.0-4.0); LYMPH # 3.2 K/mm3 (1.5-4.5); LYMPH % 37.1 % (24.0-44.0); MEAN CORPUSCULAR HEMOGLOBIN 30.5 pg (27.0-33.0); MEAN CORPUSCULAR HGB CONC 32.5 g/dl (32.0-36.5); MEAN CORPUSCULAR VOLUME 94.1 fl (80.0-96.0); MONO # 0.6 K/mm3 (0.0-0.8); NEUTROPHILS # 4.1 K/mm3 (1.8-7.7); NEUTROPHILS % 47.8 % (36.0-66.0); PLATELET COUNT, AUTOMATED 446 k/mm3 (150-450); RED CELL DISTRIBUTION WIDTH 14.8 % (11.5-14.5); WHITE BLOOD COUNT 8.7 K/mm3 (4.0-10.0)
[2016-09-12 06:18] LABS: INR 1.63
[2016-09-12 06:27] LABS: ALBUMIN 3.4 GM/DL (3.2-5.2); ALBUMIN/GLOBULIN RATIO 0.81 (1.00-1.93); ALKALINE PHOSPHATASE 85 U/L (45-117); ALT/SGPT 20 U/L (12-78); ANION GAP 8 MEQ/L (8-16); AST/SGOT 15 U/L (15-37); BILIRUBIN,TOTAL 0.3 MG/DL (0.2-1.0); BLOOD UREA NITROGEN 17 MG/DL (7-18); CALCIUM LEVEL 9.5 MG/DL (8.8-10.2); CARBON DIOXIDE LEVEL 28 MEQ/L (21-32); CHLORIDE LEVEL 106 MEQ/L (98-107); CREATININE FOR GFR 0.76 MG/DL (0.55-1.02); GLOMERULAR FILTRATION RATE > 60.0 (>39); GLUCOSE, FASTING 87 MG/DL (83-110); MAGNESIUM LEVEL 2.2 MG/DL (1.8-2.4); SODIUM LEVEL 142 MEQ/L (136-145); TOTAL PROTEIN 7.6 GM/DL (6.4-8.2)
[2016-09-12] MEDS: HEPARIN DRIP 25,000 UNITS in APPROPRIATE DILUENT 1 EA IV SCH ×2 (07:16→20:11)
[2016-09-12] MEDS: SYMBICORT 160/4.5MCG INHALER 6GM INH SCH ×2 (09:01→19:58)
[2016-09-12] MEDS: FAMOTIDINE 20 MG TAB PO SCH ×2 (09:15→20:12)
[2016-09-12] MEDS: PANTOPRAZOLE 40MG TAB (PROTONIX) PO SCH (09:15)
[2016-09-12] MEDS: MULTIVITAMINS/MINERALS THERAP 1 TAB PO SCH (09:15)
[2016-09-12] MEDS: SENOKOT S TAB PO SCH (09:15)
--- NOTE | 2016-09-12 13:15 | IPNPDOC ---
Text Note Date of Service The patient was seen on 09/12/16. NOTE Subjective: Daughters would like to entertain the idea of LP. No CP/Palpitations /SOB. No ENRIQUEZ. No focal deficits. Objective: Vitals: (see below) General: No acute distress, laying comfortably in bed. HEENT: Moist mucous membranes. Neck: No JVD or lymphadenopathy Cardiac: RRR, No murmurs Pulm: Clear to auscultation b/l. No wheezing, rhonchi Abd: NT/ND + BS Ext: No edema or cyanosis Neuro: AAO person, place, month. Strength 5/5 BUE and BLE. CN 2-12 intact. F to N intact Negative pronator drift. Negative Babinki. Sensation to fine touch intact. Labs (see below) Images: CT Head 07/11/16 IMPRESSION: 1. Small vessel ischemic disease. 2. Mild hydrocephalus, unchanged compared to the previous study. CXR 07/11/16 Impression: No acute disease. X ray hips IMPRESSION: Old bilateral hip fractures. No new fracture or dislocation. Assessment/Plan 1. AMS - resolved. ?Medication related - tramadol. UA/CXR negative. No diarrhea. Afebrile. No leukocytosis. CT head with no change in mild hydrocephalus. MRI brain (see above). Neurosurgery consulted for possible need for LP. In the meantime, pt has no focal deficits, will continue to observe. 2. H/o NPH s/p OPTIMIZATION MANAGER infection and removal 03/2016. Stable. Cont to monitor. 3. Recent left hip s/p repair on coumadin. INR<2, now on heparin drip in case neurosurgery feels that pt needs LP. 4. COPD - stable. cont nebs 5. OA/Osteoporosis - stable 6. HTN - controlled 7. H/o 8. GERD - on PPI 9. H/o Tobacco abuse DVT prophy: On heparin drip (coumadin at home). VS,Fishbone, I+O VS, Fishbone, I+O Laboratory Tests 09/12/16 05:51 Red Blood Count 4.00, Mean Corpuscular Volume 94.1, Mean Corpuscular Hemoglobin 30.5, Mean Corpuscular Hemoglobin Concent 32.5, Red Cell Distribution Width 14.8 H, Neutrophils (%) (Auto) 47.8, Lymphocytes (%) (Auto) 37.1, Monocytes (%) (Auto) 7.0 H, Eosinophils (%) (Auto) 4.7 H, Basophils (%) (Auto) 0.7, Neutrophils # (Auto) 4.1, Lymphocytes # (Auto) 3.2, Monocytes # (Auto) 0.6, Eosinophils # (Auto) 0.4, Basophils # (Auto) 0.1, Calcium Level 9.5, Aspartate Amino Transf (AST/SGOT) 15, Alanine Aminotransferase (ALT/SGPT) 20, Alkaline Phosphatase 85, Total Bilirubin 0.3, Total Protein 7.6, Albumin 3.4 Vital Signs Date Time Temp Pulse Resp B/P (MAP) Pulse Ox O2 Delivery O2 Flow Rate FiO2 09/12/16 06:00 97.8 57 18 148/71 (96) 90 Room Air 09/10/16 20:15 2.0 I&O- Last 24 Hours up to 6 AM 09/12/16 05:59 Intake Total 900 ml Output Total 470 ml Balance 430 ml KAVYA GOLDSMITH MD Sep 12, 2016 13:15
[2016-09-12 13:50] LABS: INR 1.55
[2016-09-12 14:00] VITALS: BP 113/64
--- NOTE | 2016-09-12 16:25 | CR ---
DATE OF CONSULTATION: 09/12/2016 CONSULTATION REPORT FOR: Dr. Yobany Soria REASON FOR CONSULTATION: Confusion, history of normal-pressure hydrocephalus. HISTORY OF PRESENT ILLNESS: Ms. Murcia is a pleasant 71-year-old female who [facility] and history of normal-pressure hydrocephalus. She has an extensive history, had a previous subarachnoid hemorrhage a year or two ago and then had ventriculoperitoneal (REGISTERED NURSE FETAL) and lumbar peritoneal (LP) shunting after that, shunts were infected and were subsequently removed in March [address] Kumari. She has been undergoing serial lumbar punctures. Recently, a couple days ago, the patient's daughters stated that the patient had increased level of confusion according to medical record documentation. No family members are present today. The patient is alert and oriented to person, place. She has some confusion to time. The patient states that she is not quite sure why she is back here at the hospital. She states that she is a resident at [facility]. She denies any headache. She denies any hearing or vision changes. She denies any chest pain. She denies any shortness of breath. She denies any fever or chills. She states that she has no symptoms at this time, although she does have difficulty standing and walking due to a recent left hip fracture and surgery on 09/05/2016, for her left hip fracture. Her shunt infection she had been followed by Dr. Lao. The patient denies any symptoms at this time. Nursing staff feels that the patient is at her baseline, that she has periods of confusion, but otherwise she feels that she is at her baseline compared to other admissions. ALLERGIES: She is allergic to SULFA which causes hives, CIPRO which causes hives, CODEINE causes hives, AUGMENTIN side effective of gastrointestinal (GI) intolerance, LIPITOR muscle aches. PAST MEDICAL HISTORY: Subarachnoid hemorrhage, ventricular peritoneal shunting, transient ischemic attack (TIA), gastric reflux disease, chronic obstructive pulmonary disease (COPD), hypertension, osteoporosis, osteoarthritis, esophagitis. PAST SURGICAL HISTORY: Coiling brain aneurysm 2008, REGISTERED NURSE FETAL shunting in 2014, splenectomy in 1999, hysterectomy, internal carotid artery coil 2014. HOME MEDICATIONS: Reviewed in the electronic medical record (EMR). REVIEW OF SYSTEMS: Are remarkable for history of present illness. PHYSICAL EXAMINATION: GENERAL APPEARANCE: No acute distress. Well-developed, well-nourished female. Blood pressure of 113/64, heart rate 73, respiratory rate of 18. SpO2 is 92% on room air. Temporal temperature is 99. HEENT: Head is normocephalic, atraumatic. Pupils are equal, round reactive to light. Extraocular movements (EOMs) are full and conjugate with some slight overshooting. Speech is clear and fluent. Smile symmetrical. Tongue is midline. Good shoulder shrug bilaterally. No pronator drift. Hearing is grossly intact to finger rub bilaterally. Vision grossly intact. She has some mild dysmetria and mild dysdiadochokinesis. Gait and balance not tested due to her recent left hip fracture and her inability to stand and ambulate without assistance. She has good strength in her upper and lower extremities with no gross deficits. She is alert and oriented to person and place, has some slight confusion to time. IMAGING STUDIES: MRI of the brain and CT of her head were reviewed, results in EMR, there is no evidence of any acute intracranial pathology, there are post surgical changes, chronic ischemic changes, periventricular subcortical white matter and mild hydrocephalus. NEUROSURGICAL ASSESSMENT: Confusion, encephalopathy, hydrocephalus. PLAN: Case was reviewed with both Dr. Serrato and Dr. Kumari. No acute neurosurgical intervention is indicated. The patient's family, per nursing staff, feels that she improves when she has a lumbar puncture and cerebrospinal fluid (CSF) drainage. However nursing staff feels that the patient is at her baseline and presently the patient is alert and oriented to person and place with some mild confusion to time. The patient states that she does not want to have any surgical intervention and feels fine. Again after review with Dr. Kumari and Dr. Serrato, the patient can followup in our office after discharge. No acute neurosurgical intervention indicated. Agree with above. I did not see patient, was not auto parts professional . Hanane Kumari MD [facility]
[2016-09-12] MEDS: SERTRALINE HCL 50 MG TAB PO SCH (20:12)
[2016-09-12 22:00] VITALS: BP 137/65
[2016-09-13] MEDS: IPRATROPIUM 0.5MG/ALBUTEROL 2.5MG INH SOL UD 3ML (DUONEB)(J7620) NEB SCH ×2 (01:15→07:52)
[2016-09-13] MEDS: ACETAMINOPHEN TAB 650MG DOSE (2X325MG) PO SCH ×2 (05:15→10:33)
[2016-09-13 05:51] LABS: BASO # 0.1 K/mm3 (0.0-0.2); BASO % 0.9 % (0.0-1.0); EOS # 0.3 K/mm3 (0.0-0.50); EOS % 3.8 % (0.0-3.0); LARGE UNSTAINED CELL # 0.3 K/mm3 (0.0-0.4); LARGE UNSTAINED CELL % 3.6 % (0.0-4.0); LYMPH # 4.4 K/mm3 (1.5-4.5); LYMPH % 48.3 % (24.0-44.0); MEAN CORPUSCULAR HEMOGLOBIN 30.4 pg (27.0-33.0); MEAN CORPUSCULAR HGB CONC 32.5 g/dl (32.0-36.5); MEAN CORPUSCULAR VOLUME 93.5 fl (80.0-96.0); MONO # 0.5 K/mm3 (0.0-0.8); MONO % 6.3 % (0.0-5.0); NEUTROPHILS # 3.2 K/mm3 (1.8-7.7); NEUTROPHILS % 37.1 % (36.0-66.0); PLATELET COUNT, AUTOMATED 424 k/mm3 (150-450); RED CELL DISTRIBUTION WIDTH 15.2 % (11.5-14.5); WHITE BLOOD COUNT 8.6 K/mm3 (4.0-10.0)
[2016-09-13 06:00] VITALS: BP 142/80
[2016-09-13 06:02] LABS: INR 1.37
[2016-09-13 06:08] LABS: ALBUMIN 3.2 GM/DL (3.2-5.2); ALBUMIN/GLOBULIN RATIO 0.86 (1.00-1.93); ALKALINE PHOSPHATASE 69 U/L (45-117); ALT/SGPT 18 U/L (12-78); ANION GAP 7 MEQ/L (8-16); AST/SGOT 13 U/L (15-37); BILIRUBIN,TOTAL 0.2 MG/DL (0.2-1.0); BLOOD UREA NITROGEN 22 MG/DL (7-18); CALCIUM LEVEL 9.7 MG/DL (8.8-10.2); CARBON DIOXIDE LEVEL 28 MEQ/L (21-32); CHLORIDE LEVEL 109 MEQ/L (98-107); CREATININE FOR GFR 0.77 MG/DL (0.55-1.02); GLOMERULAR FILTRATION RATE > 60.0 (>39); GLUCOSE, FASTING 88 MG/DL (83-110); MAGNESIUM LEVEL 2.2 MG/DL (1.8-2.4); POTASSIUM SERUM 3.9 MEQ/L (3.5-5.1); SODIUM LEVEL 144 MEQ/L (136-145); TOTAL PROTEIN 6.9 GM/DL (6.4-8.2)
[2016-09-13] MEDS: SYMBICORT 160/4.5MCG INHALER 6GM INH SCH (07:49)
[2016-09-13] MEDS: MULTIVITAMINS/MINERALS THERAP 1 TAB PO SCH (08:46)
[2016-09-13] MEDS: SENOKOT S TAB PO SCH (08:46)
[2016-09-13] MEDS: PANTOPRAZOLE 40MG TAB (PROTONIX) PO SCH (08:46)
[2016-09-13] MEDS: FAMOTIDINE 20 MG TAB PO SCH (08:46)
[2016-09-13] MEDS: HEPARIN DRIP 25,000 UNITS in APPROPRIATE DILUENT 1 EA IV SCH (08:48)
[2016-09-13] MEDS ORDERED: COUM1TAB17 PO (10:21)
--- NOTE | 2016-09-13 13:53 | DS.PDOC ---
Discharge Summary General Date of Admission September 10, 2016 at 18:12 Date of Discharge 09/13/16 Attending Physician: KAVYA GOLDSMITH MD Discharge Summary PROCEDURES PERFORMED DURING STAY: None. ADMITTING/DISCHARGE DIAGNOSES: 1. AMS 2/2 tramadol. ? Baselne Dementia 2. H/o NPH s/p BEAUTY ADVISOR infection and removal 03/2016. H/o SAH from [place] aneurysm. Stable. Cont to monitor. Follows with Dr. Kumari 3. Recent left hip s/p repair on coumadin. 4. COPD 5. OA/Osteoporosis 6. HTN 7. GERD - on PPI 8. H/o Tobacco abuse COMPLICATIONS/CHIEF COMPLAINT: Encephalopathy. HISTORY OF PRESENT ILLNESS/HOSPITAL COURSE: . This is a 71-year-old female with extensive past medical history including subarachnoid hemorrhage secondary to. Aneurysm rupture, normal pressure hydrocephalus status post multiple lumbar punctures as well as BEAUTY ADVISOR shunt placement and removal after was infected, who presents with the change in mental status. Family had noted the patient been more confused recently. Patient had been taking tramadol for pain from a recent hip repair. During the course of hospitalization, patient's mentation had significantly improved. Patient had no focal deficits on exam. Tramadol had been held. Patient was also evaluated by neurosurgery with no further recommendations aside from following up with Dr. Kumari in the office. MRI of the brain was negative for any acute findings. Patient was afebrile with no leukocytosis. No source of infection. UA chest x-ray negative. Given that the patient has returned to her baseline, we will continue to hold tramadol and avoid opioid agents, and patient will return to [facility] with follow-up care with Dr. Kumari in the office. I have answered all of the daughter's questions and concerns. Of note patient was placed on heparin drip after Coumadin was held for possible LP however given the patient returned to her baseline with no neurosurgery recommendations for an LP, patient will be placed back on Coumadin. Patient will receive 5 mg of Coumadin at [facility] today followed by 2 mg daily thereafter. Patient will need an INR check daily with adjustments of her Coumadin at [facility]. DISCHARGE MEDICATIONS: Please see below. ALLERGIES: Please see below. PHYSICAL EXAMINATION ON DISCHARGE: VITAL SIGNS: Please see below. General: No acute distress, laying comfortably in bed. HEENT: Moist mucous membranes. Neck: No JVD or lymphadenopathy Cardiac: RRR, No murmurs Pulm: Clear to auscultation b/l. No wheezing, rhonchi Abd: NT/ND + BS Ext: No edema or cyanosis Neuro: AAO person, place, month. Strength 5/5 BUE and BLE. CN 2-12 intact. F to N intact Negative pronator drift. Negative Babinki. Sensation to fine touch intact. LABORATORY DATA: Please see below. IMAGING: CT Head 07/11/16 IMPRESSION: 1. Small vessel ischemic disease. 2. Mild hydrocephalus, unchanged compared to the previous study. CXR 07/11/16 Impression: No acute disease. X ray hips IMPRESSION: Old bilateral hip fractures. No new fracture or dislocation. MRI Brain 09/13/16 IMPRESSION: 1. Generalized age-appropriate parenchymal atrophy. 2. Bilateral periventricular and subcortical white matter chronic ischemic changes. 3. Chronic ethmoid and maxillary sinusitis. 4. No evidence of acute intracranial pathology. 5. Evidence of postsurgical changes. PROGNOSIS: Guarded ACTIVITY: As tolerated. DIET: Low Na DISCHARGE PLAN: DISPOSITION: [facility]. DISCHARGE INSTRUCTIONS: 1. F/u with PCP and Dr. Kumari in 1-2 weeks. DISCHARGE CONDITION: Stable. TIME SPENT ON DISCHARGE: Greater than 30 minutes. Vital Signs/I&Os Vital Signs Date Time Temp Pulse Resp B/P (MAP) Pulse Ox O2 Delivery O2 Flow Rate FiO2 09/13/16 08:00 Room Air 09/13/16 06:00 96.8 60 17 142/80 (100) 93 09/10/16 20:15 2.0 I&O- Last 24 Hours up to 6 AM 09/13/16 06:00 Intake Total 468 ml Output Total 200 ml Balance 268 ml Laboratory Data Labs 24H Laboratory Tests 2 09/12/16 19:48: Activated Partial Thromboplast Time 220.7*H 09/12/16 20:40: Activated Partial Thromboplast Time 125.5*H 09/13/16 01:49: Activated Partial Thromboplast Time 77.4H 09/13/16 05:37: White Blood Count 8.6, Red Blood Count 3.70L, Hemoglobin 11.2L, Hematocrit 34.6L , Mean Corpuscular Volume 93.5, Mean Corpuscular Hemoglobin 30.4, Mean Corpuscular Hemoglobin Concent 32.5, Red Cell Distribution Width 15.2H, Platelet Count 424, Neutrophils (%) (Auto) 37.1, Lymphocytes (%) (Auto) 48.3H, Monocytes (%) (Auto) 6.3H, Eosinophils (%) (Auto) 3.8H, Basophils (%) (Auto) 0.9 , Neutrophils # (Auto) 3.2, Lymphocytes # (Auto) 4.4, Monocytes # (Auto) 0.5, Eosinophils # (Auto) 0.3, Basophils # (Auto) 0.1, Large Unclassified Cells % 3.6 , Large Unclassified Cells # 0.3, Prothrombin Time 17.0H, Prothromb Time International Ratio 1.37, Anion Gap 7L, Glomerular Filtration Rate > 60.0, Blood Urea Nitrogen 22H, Creatinine 0.77, Sodium Level 144, Potassium Level 3.9 , Chloride Level 109H, Carbon Dioxide Level 28, Calcium Level 9.7, Aspartate Amino Transf (AST/SGOT) 13L, Alanine Aminotransferase (ALT/SGPT) 18, Alkaline Phosphatase 69, Total Bilirubin 0.2, Total Protein 6.9, Albumin 3.2, Magnesium Level 2.2, Albumin/Globulin Ratio 0.86L 09/13/16 07:55: Activated Partial Thromboplast Time 80.7H CBC/BMP Laboratory Tests 09/13/16 05:37 Red Blood Count 3.70 L, Mean Corpuscular Volume 93.5, Mean Corpuscular Hemoglobin 30.4, Mean Corpuscular Hemoglobin Concent 32.5, Red Cell Distribution Width 15.2 H, Neutrophils (%) (Auto) 37.1, Lymphocytes (%) (Auto) 48.3 H, Monocytes (%) (Auto) 6.3 H, Eosinophils (%) (Auto) 3.8 H, Basophils (%) (Auto) 0.9, Neutrophils # (Auto) 3.2, Lymphocytes # (Auto) 4.4, Monocytes # ( Auto) 0.5, Eosinophils # (Auto) 0.3, Basophils # (Auto) 0.1, Calcium Level 9.7, Aspartate Amino Transf (AST/SGOT) 13 L, Alanine Aminotransferase (ALT/SGPT) 18, Alkaline Phosphatase 69, Total Bilirubin 0.2, Total Protein 6.9, Albumin 3.2 Discharge Medications Scheduled Budesonide/Formoterol (Symbicort 160-4.5 Mcg/Act) 60 Puff/Inhaler Aers, 2 PUFF INH BID, (Reported) Docusate Sod/Senna (Senna S 8.6-50 mg) 1 Tab Tab, 1 TAB PO DAILY, (Reported) Multivitamins *[facility] STOCKED* (Thera M Plus *[facility] STOCKED*) 1 Tab Tab, 1 TAB PO DAILY, (Reported) Ranitidine Hcl (Zantac) 150 Mg Tab, 1 TAB PO BID, (Reported) Sertraline Hcl (Sertraline HCl) 50 Mg Tab, 50 MG PO QHS, (Reported) Warfarin Sod (Coumadin) 2 Mg Tab, 2 MG PO QPM, (Reported) Warfarin Sod (Coumadin) 5 Mg Tab, 5 MG PO once To be given on 09/13/16, then continue 2mg daily starting 09/14/16. Scheduled PRN Acetaminophen (Acetaminophen) 325 Mg Tab, 650 MG PO DAILY PRN for PAIN SCALE 1-5 , (Reported) Bisacodyl (Bisacodyl) 10 Mg Sup, 10 MG ID DAILY PRN for CONSTIPATION, (Reported) Milk Of Magnesia (Milk of Magnesia) 1,200 Mg/15 Ml Zarina, 30 ML PO DAILY PRN for CONSTIPATION, (Reported) Sodium Phosphate/Biphosphate (Enema 7-19 gm/118Ml) 1 Gerald Gerald, 1 GERALD ID DAILY PRN for CONSTIPATION, (Reported) Allergies Coded Allergies: Codeine (Unverified Allergy, Intermediate, hives, 02/28/16) Sulfa Drugs (Verified Allergy, Intermediate, SWELLING, 02/28/16) Amoxicillin (Verified Allergy, Unknown, 07/15/16) Clavulanic Acid (Unverified Adverse Reaction, Mild, GI ISSUES w/ AUGMENTIN , 02/28/16) PATIENT DENIED ANY SOB OR HIVES Penicillins (Unverified Adverse Reaction, Mild, GI ISSUES w/ AUGMENTIN, ) PATIENT DENIED SOB OR HX OF HIVES PER DR Amparo MONTENEGRO 02/28/16 KAVYA GOLDSMITH MD Sep 13, 2016 13:53
== END 2016-09-13 12:08 ==
LOC: EDBD 13:41 → M ED 15:37 → M ED INP 18:12 → M MSPAV 20:12
PROVIDERS: ADMIT Hospitalist; ATTEND Internal Medicine
DX: G93.41 Metabolic encephalopathy (principal); I10 Essential (primary) hypertension; J44.9 Chronic obstructive pulmonary disease, unspecified; K21.9 Gastro-esophageal reflux disease without esophagitis; Z86.73 Personal history of transient ischemic attack (TIA), and cerebral infarction without residual deficits; Z79.01 Long term (current) use of anticoagulants; Z79.899 Other long term (current) drug therapy; Z72.0 Tobacco use; Z88.1 Allergy status to other antibiotic agents; Z88.2 Allergy status to sulfonamides
CPT/HCPCS: 36415; 70450; 70551; 71010; 73521; 80048; 80053; 80076; 81001; 82550; 82553; 83735; 84439; 84443; 84484; 85025; 85610; 85730; 93005; 93041; 94640; 94760; 96375; 99285; G0378

== ENCOUNTER → 2016-09-10 | Outpatient (REF) ==
[~2016-09-10] MED LIST changes: +COUM1TAB17 PO; +COUM2.5T11 PO; +RANI15TA PO; +SENN1TAB2 PO; +SYMB16INH INH
[2016-09-10 11:00] LABS: MEAN CORPUSCULAR HEMOGLOBIN 30.4 pg (27.0-33.0); MEAN CORPUSCULAR HGB CONC 32.2 g/dl (32.0-36.5); MEAN CORPUSCULAR VOLUME 94.5 fl (80.0-96.0); RED CELL DISTRIBUTION WIDTH 14.9 % (11.5-14.5); WHITE BLOOD COUNT 7.7 K/mm3 (4.0-10.0)
[2016-09-10 11:11] LABS: ANION GAP 7 MEQ/L (8-16); BLOOD UREA NITROGEN 19 MG/DL (7-18); CALCIUM LEVEL 9.3 MG/DL (8.8-10.2); CARBON DIOXIDE LEVEL 29 MEQ/L (21-32); CHLORIDE LEVEL 104 MEQ/L (98-107); CREATININE FOR GFR 0.66 MG/DL (0.55-1.02); GLOMERULAR FILTRATION RATE > 60.0 (>39); GLUCOSE, FASTING 74 MG/DL (83-110); POTASSIUM SERUM 4.3 MEQ/L (3.5-5.1); SODIUM LEVEL 140 MEQ/L (136-145)
== END ==
PROVIDERS: ATTEND Internal Medicine
DX: J44.9 Chronic obstructive pulmonary disease, unspecified (principal)

== ENCOUNTER → 2016-09-17 | Outpatient (REF) ==
[~2016-09-17] MED LIST changes: +COUM1TAB17 PO; +RANI15TA PO; +SYMB16INH INH
[2016-09-17 11:28] LABS: MEAN CORPUSCULAR HEMOGLOBIN 30.6 pg (27.0-33.0); MEAN CORPUSCULAR HGB CONC 32.3 g/dl (32.0-36.5); MEAN CORPUSCULAR VOLUME 94.9 fl (80.0-96.0); RED CELL DISTRIBUTION WIDTH 15.2 % (11.5-14.5); WHITE BLOOD COUNT 8.8 K/mm3 (4.0-10.0)
[2016-09-17 12:06] LABS: ANION GAP 12 MEQ/L (8-16); BLOOD UREA NITROGEN 21 MG/DL (7-18); CALCIUM LEVEL 9.9 MG/DL (8.8-10.2); CARBON DIOXIDE LEVEL 24 MEQ/L (21-32); CHLORIDE LEVEL 105 MEQ/L (98-107); CREATININE FOR GFR 0.89 MG/DL (0.55-1.02); GLOMERULAR FILTRATION RATE > 60.0 (>39); GLUCOSE, FASTING 147 MG/DL (83-110); POTASSIUM SERUM 4.1 MEQ/L (3.5-5.1); SODIUM LEVEL 141 MEQ/L (136-145)
== END ==
PROVIDERS: ATTEND Internal Medicine
DX: I10 Essential (primary) hypertension (principal)

== ENCOUNTER 2016-09-21 08:15 | Emergency (ER) | payer MEDICARE, MEDICAID ==
--- NOTE | 2016-09-21 09:04 | REP ---
CT of the brain without IV contrast: Comparison is 09/10/2016. There is no hemorrhage. There is no subdural or epidural hematoma. There is no edema, mass effect or midline shift. There is hydrocephalus, unchanged. Vascular aneurysm coils are again identified. Impression: There is no interval change. There is no hemorrhage, acute infarct or mass. No subdural hematoma. Hydrocephalus and aneurysm coils are again identified. Signed by Michael Gomez MD 09/21/2016 08:56 A
--- NOTE | 2016-09-21 09:20 | REP ---
Right wrist four views: There are no comparisons. There is diffuse demineralization. Joint spaces are unremarkable. There are no calcifications. There is no fracture or dislocation. Impression: Demineralization. Otherwise, negative right wrist. Signed by Michael Gomez MD 09/21/2016 09:11 A
--- NOTE | 2016-09-21 09:20 | REP ---
Right shoulder single AP view: There is no fracture or dislocation. There is demineralization. The acromioclavicular glenohumeral articulations are unremarkable. There are no calcifications. Impression: Essentially negative single AP view of the right shoulder. Signed by Michael Gomez MD 09/21/2016 09:12 A
[2016-09-21 09:29] LABS: BASO # 0.1 K/mm3 (0.0-0.2); BASO % 0.8 % (0.0-1.0); EOS # 0.4 K/mm3 (0.0-0.50); EOS % 3.6 % (0.0-3.0); LARGE UNSTAINED CELL # 0.3 K/mm3 (0.0-0.4); LARGE UNSTAINED CELL % 2.5 % (0.0-4.0); LYMPH # 2.7 K/mm3 (1.5-4.5); LYMPH % 27.2 % (24.0-44.0); MEAN CORPUSCULAR HEMOGLOBIN 30.8 pg (27.0-33.0); MEAN CORPUSCULAR HGB CONC 32.3 g/dl (32.0-36.5); MEAN CORPUSCULAR VOLUME 95.2 fl (80.0-96.0); MONO # 0.5 K/mm3 (0.0-0.8); MONO % 4.6 % (0.0-5.0); NEUTROPHILS # 6.1 K/mm3 (1.8-7.7); NEUTROPHILS % 61.1 % (36.0-66.0); PLATELET COUNT, AUTOMATED 415 k/mm3 (150-450); RED CELL DISTRIBUTION WIDTH 15.2 % (11.5-14.5)
[2016-09-21 09:38] LABS: INR 1.52
[2016-09-21 09:42] LABS: ANION GAP 8 MEQ/L (8-16); BLOOD UREA NITROGEN 19 MG/DL (7-18); CALCIUM LEVEL 9.5 MG/DL (8.8-10.2); CARBON DIOXIDE LEVEL 25 MEQ/L (21-32); CHLORIDE LEVEL 109 MEQ/L (98-107); CREATININE FOR GFR 0.66 MG/DL (0.55-1.02); GLOMERULAR FILTRATION RATE > 60.0 (>39); GLUCOSE, FASTING 89 MG/DL (83-110); POTASSIUM SERUM 4.2 MEQ/L (3.5-5.1); SODIUM LEVEL 142 MEQ/L (136-145)
[2016-09-21] MEDS ORDERED: ACETAMINOPHEN TAB 650MG DOSE (2X325MG) PO ONE (10:15)
[2016-09-21 10:48] VITALS: BP 133/81
== END 2016-09-21 10:51 | disposition home or self-care (01) ==
LOC: EDBD 08:15 → M ED 08:39
DX: S00.03XA Contusion of scalp, initial encounter (principal); W07.XXXA Fall from chair, initial encounter; Y92.099 Unspecified place in other non-institutional residence as the place of occurrence of the external cause; Y93.89 Activity, other specified; Y99.9 Unspecified external cause status

== ENCOUNTER → 2016-09-24 | Outpatient (REF) ==
[2016-09-24 10:38] LABS: MEAN CORPUSCULAR HGB CONC 32.4 g/dl (32.0-36.5); MEAN CORPUSCULAR VOLUME 95.8 fl (80.0-96.0); RED CELL DISTRIBUTION WIDTH 15.1 % (11.5-14.5); WHITE BLOOD COUNT 9.8 K/mm3 (4.0-10.0)
[2016-09-24 11:15] LABS: ANION GAP 13 MEQ/L (8-16); BLOOD UREA NITROGEN 20 MG/DL (7-18); CALCIUM LEVEL 9.8 MG/DL (8.8-10.2); CARBON DIOXIDE LEVEL 24 MEQ/L (21-32); CHLORIDE LEVEL 105 MEQ/L (98-107); CREATININE FOR GFR 0.79 MG/DL (0.55-1.02); GLOMERULAR FILTRATION RATE > 60.0 (>39); GLUCOSE, FASTING 140 MG/DL (83-110); POTASSIUM SERUM 3.9 MEQ/L (3.5-5.1); SODIUM LEVEL 142 MEQ/L (136-145)
== END ==
PROVIDERS: ATTEND Internal Medicine
DX: I10 Essential (primary) hypertension (principal)

== ENCOUNTER → 2016-10-01 | Outpatient (REF) | payer MEDICARE, MEDICAID ==
[2016-10-01 22:00] LABS: ANION GAP 7 MEQ/L (8-16); BLOOD UREA NITROGEN 23 MG/DL (7-18); CALCIUM LEVEL 9.6 MG/DL (8.8-10.2); CARBON DIOXIDE LEVEL 26 MEQ/L (21-32); CHLORIDE LEVEL 106 MEQ/L (98-107); CREATININE FOR GFR 0.77 MG/DL (0.55-1.02); GLOMERULAR FILTRATION RATE > 60.0 (>39); GLUCOSE, FASTING 97 MG/DL (83-110); POTASSIUM SERUM 4.4 MEQ/L (3.5-5.1); SODIUM LEVEL 139 MEQ/L (136-145)
[2016-10-01 22:23] LABS: MEAN CORPUSCULAR HEMOGLOBIN 31.6 pg (27.0-33.0); MEAN CORPUSCULAR HGB CONC 33.6 g/dl (32.0-36.5); MEAN CORPUSCULAR VOLUME 94.1 fl (80.0-96.0); WHITE BLOOD COUNT 10.4 K/mm3 (4.0-10.0)
== END ==
PROVIDERS: ATTEND Internal Medicine
DX: R41.82 Altered mental status, unspecified (principal)

== ENCOUNTER → 2016-10-02 | Outpatient (CLI) | payer MEDICARE, MEDICAID ==
--- NOTE | 2016-10-02 12:22 | REP ---
CT BRAIN WITHOUT CONTRAST: CT brain is performed without IV contrast and compared to the prior study of 09/21/2016. There is no change since that prior exam. The size of the dilated lateral and third ventricles is stable. Periventricular lucencies in the white matter are stable. There is no acute intracranial hemorrhage or extra-axial fluid collections. There are metallic clips in the suprasellar region. IMPRESSION: Stable exam compared to the prior study of 09/21/2016. No acute intracranial hemorrhage, No change in the size of the ventricular system. Signed by Michael Murcia MD 10/03/2016 05:08 P
== END ==
LOC: M RAD 10:52
PROVIDERS: ATTEND Physician Assistant
DX: G91.9 Hydrocephalus, unspecified (principal); Z88.5 Allergy status to narcotic agent; Z88.2 Allergy status to sulfonamides; Z88.0 Allergy status to penicillin; Z88.1 Allergy status to other antibiotic agents

== ENCOUNTER → 2016-10-28 | Outpatient (CLI) | payer MEDICARE, MEDICAID ==
[~2016-10-28] MED LIST changes: -ACET-654 PO; +ACET1TAB17 PO; +ACETAMINOPHEN 325 MG TAB As Ordered ONE; -COUM2.5T11 PO; +COUM2.5T17 PO; -COUM2TAB10 PO; +COUM2TAB22 PO; +ENEMENE16 PR; -ENEMENE3 PR; +LEVA1TAB2 PO; -LEVA500T PO; -LEVA750T PO; +LEVA750T7 PO; +MACR100C43 PO; -MELA0.02 PO; +MELA3TAB49 PO; -MELA5TAB14 PO; +MELA5TAB17 PO; -ONDA1TAB15 PO; -ONDA1TAB16 PO; +ONDA4TAB5 PO; +ONDA8TAB7 PO; +SALI0.6523; -SALI0.653; +TUBE5INJ ID; -TUBE5INJ9 ID; +ZOFR4TAB3 PO
[2016-10-28 11:15] LABS: RBC CSF AUTO 161 /mm3 (0-0); WBC CSF AUTO 10 /mm3 (0-10)
[2016-10-28 11:16] LABS: APPEARANCE, CSF CLEAR (CLEAR); COLOR, CSF COLORLESS (COLORLESS); CSF TUBE# CELL CNT TUBE 1
[2016-10-28 11:19] LABS: CSF DIFF IF INDICATED? NO (NO)
--- NOTE | 2016-10-28 15:54 | REP ---
Procedure: For guidance for lumbar puncture. History: Communicating hydrocephalus The procedure was performed under the direct supervision of Dr. Mcclure. The risks and benefits of the procedure were explained to the patient and informed consent was obtained. The L2-3 interspace was localized using fluoroscopic guidance. The skin was prepped and draped in a sterile fashion. 1% lidocaine was used as a local anesthetic. Using fluoroscopic guidance a 22-gauge spinal needle was inserted and advanced into the thecal sac. 28 ml of spinal fluid was withdrawn and sent to lab. The patient tolerated the procedure well and there were no immediate complications. 31 seconds of fluoro time was utilized for this procedure. Reviewed by ZAKI Solitario 10/28/2016 03:39 PSigned by Fritz Mcclure MD 10/28/2016 03:45 P
[2016-10-28 23:00] LABS: CSF DILUENT LOT # 6277
[2016-11-13 07:08] LABS: CSF CREUTZFELDT-JAKOB DISEASE SEE SEPARATE REPORT
[2016-11-20 16:17] LABS: CSF AMYLOID BETA PROTEIN SEE SEPARATE REPORT; CSF PHOSPHORYLATED-TAU PROTEIN SEE SEPARATE REPORT
== END | disposition home or self-care (01) ==
LOC: M RADPRO 08:11
PROVIDERS: ATTEND Neurological Surgery
DX: G91.0 Communicating hydrocephalus (principal); Z88.2 Allergy status to sulfonamides; Z88.0 Allergy status to penicillin; Z88.5 Allergy status to narcotic agent; Z88.8 Allergy status to other drugs, medicaments and biological substances; Z79.01 Long term (current) use of anticoagulants; Z79.899 Other long term (current) drug therapy

== ENCOUNTER → 2016-11-06 | Outpatient (REF) | payer MEDICARE, MEDICAID ==
[~2016-11-06] MED LIST changes: -ACETAMINOPHEN 325 MG TAB As Ordered ONE
[2016-11-06 10:35] LABS: MEAN CORPUSCULAR HEMOGLOBIN 31.9 pg (27.0-33.0); MEAN CORPUSCULAR HGB CONC 34.1 g/dl (32.0-36.5); MEAN CORPUSCULAR VOLUME 93.6 fl (80.0-96.0); RED CELL DISTRIBUTION WIDTH 14.1 % (11.5-14.5); WHITE BLOOD COUNT 9.3 K/mm3 (4.0-10.0)
== END ==
PROVIDERS: ATTEND Internal Medicine
DX: I10 Essential (primary) hypertension (principal)

== ENCOUNTER → 2016-12-04 | Outpatient (REF) | payer MEDICARE, MEDICAID ==
[2016-12-04 10:13] LABS: MEAN CORPUSCULAR HEMOGLOBIN 30.8 pg (27.0-33.0); MEAN CORPUSCULAR HGB CONC 33.3 g/dl (32.0-36.5); MEAN CORPUSCULAR VOLUME 92.5 fl (80.0-96.0); RED CELL DISTRIBUTION WIDTH 13.8 % (11.5-14.5); WHITE BLOOD COUNT 10.2 K/mm3 (4.0-10.0)
[2016-12-04 10:44] LABS: ANION GAP 11 MEQ/L (8-16); BLOOD UREA NITROGEN 18 MG/DL (7-18); CALCIUM LEVEL 9.8 MG/DL (8.8-10.2); CARBON DIOXIDE LEVEL 27 MEQ/L (21-32); CHLORIDE LEVEL 105 MEQ/L (98-107); CREATININE FOR GFR 0.93 MG/DL (0.55-1.02); GLOMERULAR FILTRATION RATE > 60.0 (>39); GLUCOSE, FASTING 99 MG/DL (83-110); POTASSIUM SERUM 4.4 MEQ/L (3.5-5.1); SODIUM LEVEL 143 MEQ/L (136-145)
== END ==
PROVIDERS: ATTEND Internal Medicine
DX: I10 Essential (primary) hypertension (principal)

== ENCOUNTER → 2016-12-06 | Outpatient (REF) | payer MEDICARE, MEDICAID ==
[2016-12-06 13:32] LABS: MEAN CORPUSCULAR HEMOGLOBIN 30.6 pg (27.0-33.0); MEAN CORPUSCULAR HGB CONC 33.4 g/dl (32.0-36.5); MEAN CORPUSCULAR VOLUME 91.6 fl (80.0-96.0); WHITE BLOOD COUNT 9.2 K/mm3 (4.0-10.0)
[2016-12-06 13:46] LABS: ANION GAP 14 MEQ/L (8-16); BLOOD UREA NITROGEN 20 MG/DL (7-18); CALCIUM LEVEL 9.5 MG/DL (8.8-10.2); CARBON DIOXIDE LEVEL 24 MEQ/L (21-32); CHLORIDE LEVEL 107 MEQ/L (98-107); CREATININE FOR GFR 0.79 MG/DL (0.55-1.02); GLOMERULAR FILTRATION RATE > 60.0 (>39); GLUCOSE, FASTING 69 MG/DL (83-110); POTASSIUM SERUM 4.4 MEQ/L (3.5-5.1); SODIUM LEVEL 145 MEQ/L (136-145)
== END ==
PROVIDERS: ATTEND Internal Medicine
DX: J44.9 Chronic obstructive pulmonary disease, unspecified (principal)

== ENCOUNTER → 2017-01-13 | Outpatient (CLI) | payer MEDICARE, MEDICAID ==
--- NOTE | 2017-01-14 09:20 | DEXA ---
AP SPINE L1 - L4 0.805 -3.1 -1.4 LT FEMUR TOTAL RT FEMUR TOTAL TOTAL BODY TOTAL LEFT FOREARM 0.718 -1.8 0.2 COMMENTS: There is osteoporosis of the spine. Low bone density of the left forearm. The density of the spine has decreased 22.7% since initial exam on 08/21/1999. The spine density has decreased 14.1% since the most recent exam on 08/05/2014. FOLLOW-UP: Recommendation for the next bone density exam: 2 years. GINGER
== END ==
LOC: M WHC 11:03
PROVIDERS: ATTEND Neurological Surgery
DX: M81.0 Age-related osteoporosis without current pathological fracture (principal)

== ENCOUNTER → 2017-01-14 | Outpatient (REF) | payer MEDICARE, MEDICAID ==
[2017-01-14 11:48] LABS: ANION GAP 8 MEQ/L (8-16); BLOOD UREA NITROGEN 21 MG/DL (7-18); CALCIUM LEVEL 9.6 MG/DL (8.8-10.2); CARBON DIOXIDE LEVEL 26 MEQ/L (21-32); CHLORIDE LEVEL 105 MEQ/L (98-107); CREATININE FOR GFR 0.78 MG/DL (0.55-1.02); GLOMERULAR FILTRATION RATE > 60.0 (>39); GLUCOSE, FASTING 92 MG/DL (83-110); POTASSIUM SERUM 4.3 MEQ/L (3.5-5.1); SODIUM LEVEL 139 MEQ/L (136-145)
== END ==
PROVIDERS: ATTEND Internal Medicine
DX: G91.9 Hydrocephalus, unspecified (principal)

== ENCOUNTER → 2017-01-15 | Outpatient (CLI) | payer MEDICARE, MEDICAID ==
--- NOTE | 2017-01-15 12:55 | REP ---
MR BRAIN WITHOUT CONTRAST: HISTORY: Hydrocephalus. COMPARISON: 09/11/2016. Areas of increased signal intensity on T2-weighted images are present in the right thalamus and left cerebellum. These represent old lacunar infarctions. Areas of increased signal intensity on T2-weighted images are present in the periventricular and subcortical white matter and anastasiia. This represents small vessel ischemic disease. There is no intraparenchymal hemorrhage, acute infarct, mass, or midline shift. A small area of increased signal intensity on T2-weighted images is present in the right frontal lobe. This represents encephalomalacia along a previous ventricular shunt tube tract. There is dilatation of the third and lateral ventricles consistent with mild hydrocephalus unchanged compared to the previous study. There is no extracerebral collection. The sinuses are clear. IMPRESSION: 1. 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 2. Small vessel ischemic disease. 3. Mild hydrocephalus unchanged compared to the previous study. Signed by Fritz Mcclure MD 01/15/2017 01:11 P
== END ==
LOC: M RAD 10:43
PROVIDERS: ATTEND Physician Assistant
DX: G91.9 Hydrocephalus, unspecified (principal)

== ENCOUNTER 2017-02-01 23:27 | Emergency (ER) | payer MEDICARE, MEDICAID ==
[~2017-02-01] VITALS: Ht 152.4 cm; Wt 54.5 kg
[~2017-02-01 23:27] MED LIST changes: -MACR100C43 PO; -ZOFR4TAB3 PO
[2017-02-02] MEDS ORDERED: NS 500 ML IV ONE (01:00)
[2017-02-02] MEDS ORDERED: ONDANSETRON 4MG/2ML VIAL (J2405) IV ONE (01:00)
[2017-02-02 01:01] LABS: BASO % 0.2 % (0.0-1.0); EOS % 0.2 % (0.0-3.0); IMMATURE GRANULOCYTE % 0.3 % (0-0); LYMPH # 1.2 10^3/uL (1.5-4.5); MEAN CORPUSCULAR HEMOGLOBIN 29.9 pg (27.0-33.0); MEAN CORPUSCULAR HGB CONC 33.4 g/dl (32.0-36.5); MEAN CORPUSCULAR VOLUME 89.6 fl (80.0-96.0); MONO # 0.5 10^3/uL (0.0-0.8); MONO % 3.7 % (0.0-5.0); NEUTROPHILS # 12.7 10^3/uL (1.8-7.7); NEUTROPHILS % 87.6 % (36.0-66.0); PLATELET COUNT, AUTOMATED 346 10^3/uL (150-450); RED CELL DISTRIBUTION WIDTH 14.9 % (11.5-14.5); WHITE BLOOD COUNT 14.5 10^3/uL (4.0-10.0)
[2017-02-02 01:48] LABS: ALBUMIN 3.9 GM/DL (3.2-5.2); ALBUMIN/GLOBULIN RATIO 0.91 (1.00-1.93); ALKALINE PHOSPHATASE 84 U/L (45-117); ALT/SGPT 22 U/L (12-78); ANION GAP 8 MEQ/L (8-16); AST/SGOT 15 U/L (15-37); BILIRUBIN,DIRECT 0.2 MG/DL (0.0-0.2); BILIRUBIN,TOTAL 0.5 MG/DL (0.2-1.0); BLOOD UREA NITROGEN 23 MG/DL (7-18); CALCIUM LEVEL 9.7 MG/DL (8.8-10.2); CARBON DIOXIDE LEVEL 30 MEQ/L (21-32); CHLORIDE LEVEL 103 MEQ/L (98-107); CREATININE FOR GFR 0.96 MG/DL (0.55-1.02); GLOMERULAR FILTRATION RATE > 60.0 (>39); GLUCOSE, FASTING 129 MG/DL (83-110); POTASSIUM SERUM 4.1 MEQ/L (3.5-5.1); SODIUM LEVEL 141 MEQ/L (136-145); TOTAL PROTEIN 8.2 GM/DL (6.4-8.2)
[2017-02-02 02:38] LABS: INR 0.98
--- NOTE | 2017-02-02 03:30 | REPUSA ---
CLINICAL HISTORY: Trauma. TECHNIQUE: Multiple axial CT images were obtained through the brain without IV contrast material. COMMENTS: Comparison to prior exam on 10/02/2016. Unchanged metallic clips in the topography of the [place] from prior intervention on aneurys ms. Unchanged bilateral frontal chronic ischemic encephalomalacia. Unchanged mild hydrocephalus. There is normal configuration of sella turcica. There are no intra or extra-axial collections. There is no mass effect or midline shift. There is no evidence of hematoma formation. No hydrocephalus is p resent. The ventricles are symmetrical. No abnormal calcifications are present. There is diffuse age-appropriate cerebellar and cerebral atrophy with proportionally dilated ventricl es and cortical sulci. There are bilateral confluent periventricular and subcortical white matter hypolucencies compatible w ith severe chronic microvascular disease. Otherwise, no acute significant focal abnormalities are seen either in the posterior fossa or suprate ntorial compartment. IMPRESSION: No acute traumatic pathology. Unchanged exam. Thank you for your kind referral of this patient.
[2017-02-02] MEDS ORDERED: ZOFR4TAB3 PO (06:35)
[2017-02-02] MEDS ORDERED: MACR100C43 PO (06:35)
[2017-02-02] MEDS ORDERED: NITROFURANTOIN (MACROBID) 100 MG CAP PO ONE (06:45)
[2017-02-02 06:55] VITALS: BP 133/54
--- NOTE | 2017-02-02 09:17 | REP ---
Portable chest, single AP view, 04:40 a.m.: Comparison is 09/10/2016. The lung ulrich are clear. The cardiac size is normal. The emmanuel, mediastinum, and bony thorax are unremarkable. Impression: Negative portable chest. There is no interval change. Signed by Michael Gomez MD 02/02/2017 08:18 A
== END 2017-02-02 07:40 | disposition home or self-care (01) ==
LOC: EDBD 23:27 → M ED 23:27
DX: N39.0 Urinary tract infection, site not specified (principal); G91.9 Hydrocephalus, unspecified; Z91.81 History of falling; Y92.129 Unspecified place in nursing home as the place of occurrence of the external cause; Z79.899 Other long term (current) drug therapy; Z88.0 Allergy status to penicillin; Z88.5 Allergy status to narcotic agent; Z88.2 Allergy status to sulfonamides; Z88.1 Allergy status to other antibiotic agents
CPT/HCPCS: 51701; 70450; 71010; 80048; 80076; 81001; 82550; 82553; 83690; 84484; 85025; 85610; 85730; 87088; 87186; 96374; 99285; J2405

== ENCOUNTER → 2017-02-03 | Outpatient (REF) | payer MEDICARE, MEDICAID ==
[~2017-02-03] MED LIST changes: +MACR100C43 PO; +ZOFR4TAB3 PO
[2017-02-03 14:11] LABS: MEAN CORPUSCULAR HEMOGLOBIN 30.3 pg (27.0-33.0); MEAN CORPUSCULAR HGB CONC 32.4 g/dl (32.0-36.5); MEAN CORPUSCULAR VOLUME 93.5 fl (80.0-96.0); PLATELET COUNT, AUTOMATED 278 10^3/uL (150-450); RED CELL DISTRIBUTION WIDTH 15.3 % (11.5-14.5); WHITE BLOOD COUNT 16.4 10^3/uL (4.0-10.0)
[2017-02-03 14:20] LABS: ANION GAP 11 MEQ/L (8-16); BLOOD UREA NITROGEN 23 MG/DL (7-18); CALCIUM LEVEL 9.3 MG/DL (8.8-10.2); CARBON DIOXIDE LEVEL 25 MEQ/L (21-32); CHLORIDE LEVEL 105 MEQ/L (98-107); CREATININE FOR GFR 0.95 MG/DL (0.55-1.02); GLOMERULAR FILTRATION RATE > 60.0 (>39); GLUCOSE, FASTING 94 MG/DL (83-110); POTASSIUM SERUM 4.1 MEQ/L (3.5-5.1); SODIUM LEVEL 141 MEQ/L (136-145)
== END ==
PROVIDERS: ATTEND Internal Medicine
DX: D72.829 Elevated white blood cell count, unspecified (principal); R09.02 Hypoxemia

== ENCOUNTER → 2017-02-04 | Outpatient (REF) | payer MEDICARE, MEDICAID ==
--- NOTE | 2017-02-04 09:29 | REP ---
SINGLE VIEW CHEST: Single view of the chest is performed. There is mild bibasilar atelectatic change. Upper lungs are clear. Cardiomediastinal silhouette appears magnified. Patient is rotated toward the left which somewhat limits the exam. IMPRESSION: Mild bibasilar atelectatic changes. Signed by Michael Murcia MD 02/05/2017 04:21 P
[2017-02-04 12:15] LABS: MEAN CORPUSCULAR HGB CONC 32.5 g/dl (32.0-36.5); MEAN CORPUSCULAR VOLUME 92.4 fl (80.0-96.0); PLATELET COUNT, AUTOMATED 292 10^3/uL (150-450); RED CELL DISTRIBUTION WIDTH 14.8 % (11.5-14.5); WHITE BLOOD COUNT 10.6 10^3/uL (4.0-10.0)
== END ==
PROVIDERS: ATTEND Internal Medicine
DX: R09.02 Hypoxemia (principal)

== ENCOUNTER → 2017-02-17 | Outpatient (CLI) | payer MEDICARE, MEDICAID ==
[2017-02-17 15:39] LABS: GLUCOSE CSF 62 MG/DL (40-75)
[2017-02-17 16:03] LABS: APPEARANCE, CSF CLEAR (CLEAR); COLOR, CSF COLORLESS (COLORLESS); CSF DIFF IF INDICATED? NO (NO); CSF TUBE# CELL CNT TUBE 1
--- NOTE | 2017-02-17 19:59 | REP ---
Procedure: For guidance for lumbar puncture. History: Normal pressure hydrocephalus The procedure was performed under the direct supervision of Dr. Valenzuela. The risks and benefits of the procedure were explained to the patient and informed consent was obtained. The L2-3 interspace was localized using fluoroscopic guidance. The skin was prepped and draped in a sterile fashion. 1% lidocaine was used as a local anesthetic. Using fluoroscopic guidance a 22-gauge spinal needle was inserted and advanced into the thecal sac. 24 ml of spinal fluid was withdrawn and sent to lab. The the patient tolerated the procedure well and there were no immediate complications. 0.1 minutes of fluoro time was utilized for this procedure. Reviewed by ZAKI Solitario 02/17/2017 04:38 PSigned by Jayden Valenzuela MD 02/17/2017 07:50 P
[2017-02-18 10:29] LABS: CSF GROUP B STREP NEGATIVE (NEGATIVE); CSF H. INFLUENZA NEGATIVE (NEGATIVE); CSF N MENINGITIDIS ACYW135 NEGATIVE (NEGATIVE); CSF STREP PNUEMO NEGATIVE (NEGATIVE)
== END ==
LOC: M RADPRO 12:58
PROVIDERS: ATTEND Neurological Surgery
DX: G91.9 Hydrocephalus, unspecified (principal); I10 Essential (primary) hypertension; K21.9 Gastro-esophageal reflux disease without esophagitis; J98.4 Other disorders of lung; R23.3 Spontaneous ecchymoses; Z86.73 Personal history of transient ischemic attack (TIA), and cerebral infarction without residual deficits; M19.90 Unspecified osteoarthritis, unspecified site; R06.83 Snoring; Z86.79 Personal history of other diseases of the circulatory system; Z88.0 Allergy status to penicillin; Z88.1 Allergy status to other antibiotic agents; Z88.3 Allergy status to other anti-infective agents; Z88.5 Allergy status to narcotic agent; Z79.899 Other long term (current) drug therapy

== ENCOUNTER → 2017-03-05 | Outpatient (REF) | payer MEDICARE, MEDICAID ==
[2017-03-05 10:07] LABS: MEAN CORPUSCULAR HEMOGLOBIN 29.3 pg (27.0-33.0); MEAN CORPUSCULAR HGB CONC 32.2 g/dl (32.0-36.5); PLATELET COUNT, AUTOMATED 321 10^3/uL (150-450); RED CELL DISTRIBUTION WIDTH 14.1 % (11.5-14.5); WHITE BLOOD COUNT 9.7 10^3/uL (4.0-10.0)
[2017-03-05 10:30] LABS: ANION GAP 10 MEQ/L (8-16); BLOOD UREA NITROGEN 18 MG/DL (7-18); CALCIUM LEVEL 9.6 MG/DL (8.8-10.2); CARBON DIOXIDE LEVEL 26 MEQ/L (21-32); CHLORIDE LEVEL 106 MEQ/L (98-107); CREATININE FOR GFR 0.85 MG/DL (0.55-1.02); GLOMERULAR FILTRATION RATE > 60.0 (>39); GLUCOSE, FASTING 102 MG/DL (83-110); POTASSIUM SERUM 4.1 MEQ/L (3.5-5.1); SODIUM LEVEL 142 MEQ/L (136-145)
== END ==
PROVIDERS: ATTEND Internal Medicine
DX: I10 Essential (primary) hypertension (principal)

== ENCOUNTER → 2017-06-10 | Outpatient (REF) | payer MEDICARE, MEDICAID ==
[2017-06-10 10:26] LABS: HEMATOCRIT 43.5 % (36.0-47.0); HEMOGLOBIN 14.3 g/dl (12.0-16.0); MEAN CORPUSCULAR HEMOGLOBIN 29.7 pg (27.0-33.0); MEAN CORPUSCULAR HGB CONC 32.9 g/dl (32.0-36.5); MEAN CORPUSCULAR VOLUME 90.2 fl (80.0-96.0); PLATELET COUNT, AUTOMATED 315 10^3/uL (150-450); RED BLOOD COUNT 4.82 10^6/uL (4.00-5.40); WHITE BLOOD COUNT 9.8 10^3/uL (4.0-10.0)
[2017-06-10 10:56] LABS: ANION GAP 12 MEQ/L (8-16); BLOOD UREA NITROGEN 20 MG/DL (7-18); CALCIUM LEVEL 9.3 MG/DL (8.8-10.2); CARBON DIOXIDE LEVEL 24 MEQ/L (21-32); CHLORIDE LEVEL 106 MEQ/L (98-107); CREATININE FOR GFR 0.87 MG/DL (0.55-1.30); GLOMERULAR FILTRATION RATE > 60.0 (>39); GLUCOSE, FASTING 126 MG/DL (70-100); SODIUM LEVEL 142 MEQ/L (136-145)
== END ==
DX: I10 Essential (primary) hypertension (principal)
CPT/HCPCS: 80048

== ENCOUNTER 2017-07-11 17:59 | Inpatient (IN) | payer MEDICARE, MEDICAID ==
[2017-07-11 19:05] LABS: BEDSIDE GLUCOSE 92 MG/DL (83-110)
[2017-07-11 19:19] LABS: LACTIC ACID SEPSIS PROTOCOL 1.7 MMOL/L (0.4-2.0)
[2017-07-11 19:19] LABS: BASO # 0.1 10^3/uL (0.0-0.2); BASO % 0.7 % (0.0-1.0); EOS # 0.4 10^3/uL (0.0-0.50); EOS % 3.3 % (0.0-3.0); HEMATOCRIT 42.5 % (36.0-47.0); HEMOGLOBIN 13.6 g/dl (12.0-15.5); IMMATURE GRANULOCYTE % 0.4 % (0-3.0); LYMPH # 4.1 10^3/uL (1.5-4.5); LYMPH % 34.9 % (24.0-44.0); MEAN CORPUSCULAR HEMOGLOBIN 28.7 pg (27.0-33.0); MEAN CORPUSCULAR VOLUME 89.7 fl (80.0-96.0); MONO # 0.9 10^3/uL (0.0-0.8); MONO % 7.9 % (0.0-5.0); NEUTROPHILS # 6.1 10^3/uL (1.8-7.7); NEUTROPHILS % 52.8 % (36.0-66.0); PLATELET COUNT, AUTOMATED 337 10^3/uL (150-450); RED BLOOD COUNT 4.74 10^6/uL (4.00-5.40); RED CELL DISTRIBUTION WIDTH 14.6 % (11.5-14.5); WHITE BLOOD COUNT 11.6 10^3/uL (4.0-10.0)
[2017-07-11] MEDS: NS 1,000 ML IV (19:32)
[2017-07-11] MEDS: LABETALOL HCL 100 MG/20 ML VIAL IV (19:32)
[2017-07-11 19:41] LABS: ALBUMIN 3.5 GM/DL (3.2-5.2); ALBUMIN/GLOBULIN RATIO 0.76 (1.00-1.93); ALKALINE PHOSPHATASE 75 U/L (45-117); ALT/SGPT 17 U/L (12-78); ANION GAP 7 MEQ/L (8-16); AST/SGOT 17 U/L (7-37); BILIRUBIN,DIRECT < 0.1 MG/DL (0.0-0.2); BILIRUBIN,TOTAL 0.2 MG/DL (0.2-1.0); BLOOD UREA NITROGEN 16 MG/DL (7-18); CALCIUM LEVEL 9.4 MG/DL (8.8-10.2); CARBON DIOXIDE LEVEL 25 MEQ/L (21-32); CHLORIDE LEVEL 110 MEQ/L (98-107); CPK CREATINE PHOSPHOKINASE 82 U/L (26-192); CREATININE FOR GFR 0.84 MG/DL (0.55-1.30); ETHYL ALCOHOL (ETHANOL) < 0.003 % (0.000-0.010); GLOMERULAR FILTRATION RATE > 60.0 (>39); GLUCOSE, FASTING 102 MG/DL (70-100); POTASSIUM SERUM 4.3 MEQ/L (3.5-5.1); SALICYLATE LEVEL < 1.7 MG/DL (5.0-30.0); SODIUM LEVEL 142 MEQ/L (136-145); TOTAL PROTEIN 8.1 GM/DL (6.4-8.2); TROPONIN I < 0.02 NG/ML (< 0.10)
[2017-07-11 19:47] LABS: CK-MB VALUE MASS < 1.0 NG/ML (<3.6); MB/CK RELATIVE INDEX 1.21 (< OR =4); THYROID STIMULATING HORMONE 0.205 uIU/ML (0.358-3.740)
[2017-07-11 19:48] LABS: INR 0.93; PROTHROMBIN TIME 12.6 SECONDS (12.4-14.5)
[2017-07-11] MEDS: ASPIRIN 81 MG CHEW TABLET PO (19:55)
[2017-07-11] MEDS: LORazepam 2 MG/ML VIAL (J2060) IV ×2 (20:00→20:55)
[2017-07-11] MEDS: SYMBICORT 160/4.5MCG INHALER 6GM INH (20:00)
[2017-07-11 20:17] LABS: ACETAMINOPHEN LEVEL < 2.0 UG/ML (10.0-30.0)
[2017-07-11] MEDS: diphenhydrAMINE INJ 50MG/ML VIAL (J1200) IV (21:18)
[2017-07-11] MEDS ORDERED: IPRATROPIUM 0.5MG/ALBUTEROL 2.5MG INH SOL UD 3ML (DUONEB)(J7620) NEB (23:00)
[2017-07-12 00:06] LABS: CPK CREATINE PHOSPHOKINASE 73 U/L (26-192); T UPTAKE 35 % (30-39); THYROXINE (T4) 8.5 UG/DL (4.5-12.0); TROPONIN I < 0.02 NG/ML (< 0.10)
[2017-07-12 00:12] LABS: CK-MB VALUE MASS 1.5 NG/ML (<3.6); MB/CK RELATIVE INDEX 2.05 (< OR =4); THYROID STIMULATING HORMONE 0.192 uIU/ML (0.358-3.740)
[2017-07-12] MEDS: NS 1,000 ML IV ×2 (00:44→15:13)
[2017-07-12] MEDS: HEPARIN SOD (PORCINE) 5000 UNITS/ML VIAL SC ×3 (00:44→21:53)
[2017-07-12 04:29] LABS: HEMATOCRIT 38.4 % (36.0-47.0); HEMOGLOBIN 12.1 g/dl (12.0-15.5); MEAN CORPUSCULAR HEMOGLOBIN 28.7 pg (27.0-33.0); MEAN CORPUSCULAR HGB CONC 31.5 g/dl (32.0-36.5); MEAN CORPUSCULAR VOLUME 91.2 fl (80.0-96.0); PLATELET COUNT, AUTOMATED 354 10^3/uL (150-450); RED BLOOD COUNT 4.21 10^6/uL (4.00-5.40); RED CELL DISTRIBUTION WIDTH 14.6 % (11.5-14.5)
[2017-07-12 04:49] LABS: ALBUMIN 2.8 GM/DL (3.2-5.2); ALBUMIN/GLOBULIN RATIO 0.74 (1.00-1.93); ALKALINE PHOSPHATASE 63 U/L (45-117); ALT/SGPT 12 U/L (12-78); ANION GAP 6 MEQ/L (8-16); AST/SGOT 10 U/L (7-37); BILIRUBIN,TOTAL 0.2 MG/DL (0.2-1.0); BLOOD UREA NITROGEN 15 MG/DL (7-18); CALCIUM LEVEL 8.6 MG/DL (8.8-10.2); CARBON DIOXIDE LEVEL 25 MEQ/L (21-32); CHLORIDE LEVEL 114 MEQ/L (98-107); CHOLESTEROL LEVEL 199 MG/DL (<200); CHOLESTEROL RISK RATIO 5.236 (<5); CK-MB VALUE MASS 1.5 NG/ML (<3.6); CPK CREATINE PHOSPHOKINASE 58 U/L (26-192); CREATININE FOR GFR 0.76 MG/DL (0.55-1.30); GLOMERULAR FILTRATION RATE > 60.0 (>39); GLUCOSE, FASTING 88 MG/DL (70-100); HDL CHOLESTEROL 38 MG/DL (>40); LDL CHOLESTEROL 124.2 MG/DL (<100); MAGNESIUM LEVEL 2.3 MG/DL (1.8-2.4); MB/CK RELATIVE INDEX 2.58 (< OR =4); NON-HDL-C 161 MG/DL; POTASSIUM SERUM 3.9 MEQ/L (3.5-5.1); SODIUM LEVEL 145 MEQ/L (136-145); TOTAL PROTEIN 6.6 GM/DL (6.4-8.2); TRIGLYCERIDES LEVEL 184 MG/DL (<150); TROPONIN I 0.02 NG/ML (< 0.10)
[2017-07-12] MEDS: SYMBICORT 160/4.5MCG INHALER 6GM INH ×2 (08:22→19:56)
[2017-07-12] MEDS: ASPIRIN 325 MG TAB PO ×2 (09:00→10:20)
[2017-07-12] MEDS: PANTOPRAZOLE 40MG INJ (PROTONIX) (C9113) IV (10:19)
[2017-07-12] MEDS: ASPIRIN 300 MG SUPP PR (11:22)
[2017-07-12] MEDS: ATORVASTATIN 20 MG TAB PO (14:21)
[2017-07-12] MEDS ORDERED: ATORVASTATIN 20 MG TAB PO (21:00)
[2017-07-13] MEDS: NS 1,000 ML IV ×2 (04:29→15:27)
[2017-07-13 04:38] LABS: HEMATOCRIT 39.2 % (36.0-47.0); HEMOGLOBIN 12.6 g/dl (12.0-15.5); MEAN CORPUSCULAR HEMOGLOBIN 28.5 pg (27.0-33.0); MEAN CORPUSCULAR HGB CONC 32.1 g/dl (32.0-36.5); MEAN CORPUSCULAR VOLUME 88.7 fl (80.0-96.0); PLATELET COUNT, AUTOMATED 403 10^3/uL (150-450); RED BLOOD COUNT 4.42 10^6/uL (4.00-5.40); RED CELL DISTRIBUTION WIDTH 14.4 % (11.5-14.5); WHITE BLOOD COUNT 11.5 10^3/uL (4.0-10.0)
[2017-07-13 04:56] LABS: ALBUMIN/GLOBULIN RATIO 0.75 (1.00-1.93); ALKALINE PHOSPHATASE 71 U/L (45-117); ALT/SGPT 13 U/L (12-78); ANION GAP 6 MEQ/L (8-16); AST/SGOT 13 U/L (7-37); BILIRUBIN,TOTAL 0.4 MG/DL (0.2-1.0); BLOOD UREA NITROGEN 12 MG/DL (7-18); CALCIUM LEVEL 8.8 MG/DL (8.8-10.2); CARBON DIOXIDE LEVEL 23 MEQ/L (21-32); CHLORIDE LEVEL 114 MEQ/L (98-107); CREATININE FOR GFR 0.72 MG/DL (0.55-1.30); GLOMERULAR FILTRATION RATE > 60.0 (>39); GLUCOSE, FASTING 87 MG/DL (70-100); MAGNESIUM LEVEL 2.1 MG/DL (1.8-2.4); POTASSIUM SERUM 3.7 MEQ/L (3.5-5.1); SODIUM LEVEL 143 MEQ/L (136-145)
[2017-07-13] MEDS: SYMBICORT 160/4.5MCG INHALER 6GM INH ×2 (07:14→23:04)
[2017-07-13] MEDS: ASPIRIN 81 MG CHEW TABLET PO (09:07)
[2017-07-13] MEDS: HEPARIN SOD (PORCINE) 5000 UNITS/ML VIAL SC ×2 (09:07→21:51)
[2017-07-13] MEDS: PANTOPRAZOLE 40MG INJ (PROTONIX) (C9113) IV (09:07)
[2017-07-13] MEDS ORDERED: ONDANSETRON 4MG/2ML VIAL (J2405) IV (14:15)
[2017-07-13] MEDS: ACETAMINOPHEN TAB 650MG DOSE (2X325MG) PO (15:27)
[2017-07-13] MEDS: ATORVASTATIN 20 MG TAB PO (21:51)
[2017-07-14 04:37] LABS: HEMATOCRIT 40.3 % (36.0-47.0); HEMOGLOBIN 13.2 g/dl (12.0-15.5); MEAN CORPUSCULAR HEMOGLOBIN 28.7 pg (27.0-33.0); MEAN CORPUSCULAR HGB CONC 32.8 g/dl (32.0-36.5); MEAN CORPUSCULAR VOLUME 87.6 fl (80.0-96.0); PLATELET COUNT, AUTOMATED 393 10^3/uL (150-450); RED CELL DISTRIBUTION WIDTH 14.6 % (11.5-14.5)
[2017-07-14 05:01] LABS: ALBUMIN 3.1 GM/DL (3.2-5.2); ALBUMIN/GLOBULIN RATIO 0.76 (1.00-1.93); ALKALINE PHOSPHATASE 70 U/L (45-117); ALT/SGPT 14 U/L (12-78); ANION GAP 8 MEQ/L (8-16); AST/SGOT 14 U/L (7-37); BILIRUBIN,TOTAL 0.4 MG/DL (0.2-1.0); BLOOD UREA NITROGEN 10 MG/DL (7-18); CALCIUM LEVEL 8.9 MG/DL (8.8-10.2); CARBON DIOXIDE LEVEL 22 MEQ/L (21-32); CHLORIDE LEVEL 116 MEQ/L (98-107); CREATININE FOR GFR 0.66 MG/DL (0.55-1.30); GLOMERULAR FILTRATION RATE > 60.0 (>39); GLUCOSE, FASTING 88 MG/DL (70-100); MAGNESIUM LEVEL 2.1 MG/DL (1.8-2.4); POTASSIUM SERUM 3.5 MEQ/L (3.5-5.1); SODIUM LEVEL 146 MEQ/L (136-145); TOTAL PROTEIN 7.2 GM/DL (6.4-8.2)
[2017-07-14] MEDS: NS 1,000 ML IV ×2 (07:13→17:08)
[2017-07-14] MEDS: SYMBICORT 160/4.5MCG INHALER 6GM INH ×2 (09:01→21:09)
[2017-07-14] MEDS: HEPARIN SOD (PORCINE) 5000 UNITS/ML VIAL SC ×2 (09:37→22:01)
[2017-07-14] MEDS: PANTOPRAZOLE 40MG INJ (PROTONIX) (C9113) IV (09:37)
[2017-07-14] MEDS: ASPIRIN 81 MG CHEW TABLET PO (09:38)
[2017-07-14] MEDS: LISINOPRIL 10 MG TAB PO (18:38)
[2017-07-14] MEDS: amLODIPine 5 MG TAB PO (21:45)
[2017-07-14] MEDS: ATORVASTATIN 20 MG TAB PO (21:56)
[2017-07-15 04:59] LABS: HEMATOCRIT 39.8 % (36.0-47.0); MEAN CORPUSCULAR HEMOGLOBIN 28.4 pg (27.0-33.0); MEAN CORPUSCULAR HGB CONC 32.7 g/dl (32.0-36.5); MEAN CORPUSCULAR VOLUME 87.1 fl (80.0-96.0); PLATELET COUNT, AUTOMATED 403 10^3/uL (150-450); RED BLOOD COUNT 4.57 10^6/uL (4.00-5.40); RED CELL DISTRIBUTION WIDTH 14.5 % (11.5-14.5); WHITE BLOOD COUNT 9.8 10^3/uL (4.0-10.0)
[2017-07-15 05:22] LABS: ALBUMIN 3.2 GM/DL (3.2-5.2); ALBUMIN/GLOBULIN RATIO 0.78 (1.00-1.93); ALKALINE PHOSPHATASE 67 U/L (45-117); ALT/SGPT 19 U/L (12-78); ANION GAP 7 MEQ/L (8-16); AST/SGOT 23 U/L (7-37); BILIRUBIN,TOTAL 0.4 MG/DL (0.2-1.0); BLOOD UREA NITROGEN 10 MG/DL (7-18); CALCIUM LEVEL 8.9 MG/DL (8.8-10.2); CARBON DIOXIDE LEVEL 21 MEQ/L (21-32); CHLORIDE LEVEL 115 MEQ/L (98-107); CREATININE FOR GFR 0.69 MG/DL (0.55-1.30); GLOMERULAR FILTRATION RATE > 60.0 (>39); GLUCOSE, FASTING 91 MG/DL (70-100); POTASSIUM SERUM 3.4 MEQ/L (3.5-5.1); SODIUM LEVEL 143 MEQ/L (136-145); TOTAL PROTEIN 7.3 GM/DL (6.4-8.2)
[2017-07-15] MEDS: ASPIRIN 81 MG CHEW TABLET PO (08:00)
[2017-07-15] MEDS: PANTOPRAZOLE 40MG INJ (PROTONIX) (C9113) IV (08:01)
[2017-07-15] MEDS: HEPARIN SOD (PORCINE) 5000 UNITS/ML VIAL SC ×2 (08:01→20:07)
[2017-07-15] MEDS: SYMBICORT 160/4.5MCG INHALER 6GM INH ×2 (08:22→20:19)
[2017-07-15] MEDS: LISINOPRIL 10 MG TAB PO (12:09)
[2017-07-15] MEDS: POTASSIUM CHLORIDE 10% LIQ 20 MEQ/15 ML UDC PO (15:44)
[2017-07-15] MEDS: FAMOTIDINE 20 MG TAB PO (15:45)
[2017-07-15] MEDS: ATORVASTATIN 20 MG TAB PO (20:07)
[2017-07-16] MEDS: niCARdipine IV 40 MG in APPROPRIATE DILUENT 1 EA IV (03:14)
[2017-07-16 05:13] LABS: HEMATOCRIT 44.5 % (36.0-47.0); HEMOGLOBIN 14.3 g/dl (12.0-15.5); MEAN CORPUSCULAR HEMOGLOBIN 29.3 pg (27.0-33.0); MEAN CORPUSCULAR HGB CONC 32.1 g/dl (32.0-36.5); MEAN CORPUSCULAR VOLUME 91.2 fl (80.0-96.0); PLATELET COUNT, AUTOMATED 355 10^3/uL (150-450); RED BLOOD COUNT 4.88 10^6/uL (4.00-5.40); RED CELL DISTRIBUTION WIDTH 14.7 % (11.5-14.5); WHITE BLOOD COUNT 10.2 10^3/uL (4.0-10.0)
[2017-07-16 05:27] LABS: ALBUMIN 3.2 GM/DL (3.2-5.2); ALBUMIN/GLOBULIN RATIO 0.78 (1.00-1.93); ALKALINE PHOSPHATASE 72 U/L (45-117); ALT/SGPT 25 U/L (12-78); ANION GAP 8 MEQ/L (8-16); AST/SGOT 29 U/L (7-37); BILIRUBIN,TOTAL 0.4 MG/DL (0.2-1.0); BLOOD UREA NITROGEN 16 MG/DL (7-18); CALCIUM LEVEL 9.1 MG/DL (8.8-10.2); CARBON DIOXIDE LEVEL 21 MEQ/L (21-32); CHLORIDE LEVEL 114 MEQ/L (98-107); CREATININE FOR GFR 0.66 MG/DL (0.55-1.30); GLOMERULAR FILTRATION RATE > 60.0 (>39); GLUCOSE, FASTING 82 MG/DL (70-100); MAGNESIUM LEVEL 1.9 MG/DL (1.8-2.4); POTASSIUM SERUM 3.5 MEQ/L (3.5-5.1); SODIUM LEVEL 143 MEQ/L (136-145); TOTAL PROTEIN 7.3 GM/DL (6.4-8.2)
[2017-07-16] MEDS: SYMBICORT 160/4.5MCG INHALER 6GM INH ×2 (08:08→21:19)
[2017-07-16] MEDS: FAMOTIDINE 20 MG TAB PO (10:10)
[2017-07-16] MEDS: ASPIRIN 81 MG CHEW TABLET PO (10:10)
[2017-07-16] MEDS: HEPARIN SOD (PORCINE) 5000 UNITS/ML VIAL SC ×2 (10:10→20:51)
[2017-07-16] MEDS: LISINOPRIL 10 MG TAB PO ×2 (10:12→11:43)
[2017-07-16] MEDS: ATORVASTATIN 20 MG TAB PO (20:51)
[2017-07-17 06:03] LABS: HEMATOCRIT 42.1 % (36.0-47.0); HEMOGLOBIN 13.5 g/dl (12.0-15.5); MEAN CORPUSCULAR HEMOGLOBIN 28.8 pg (27.0-33.0); MEAN CORPUSCULAR HGB CONC 32.1 g/dl (32.0-36.5); PLATELET COUNT, AUTOMATED 391 10^3/uL (150-450); RED BLOOD COUNT 4.68 10^6/uL (4.00-5.40); RED CELL DISTRIBUTION WIDTH 14.8 % (11.5-14.5); WHITE BLOOD COUNT 9.8 10^3/uL (4.0-10.0)
[2017-07-17 06:33] LABS: ALBUMIN 3.1 GM/DL (3.2-5.2); ALBUMIN/GLOBULIN RATIO 0.78 (1.00-1.93); ALKALINE PHOSPHATASE 71 U/L (45-117); ALT/SGPT 26 U/L (12-78); ANION GAP 9 MEQ/L (8-16); AST/SGOT 27 U/L (7-37); BILIRUBIN,TOTAL 0.4 MG/DL (0.2-1.0); BLOOD UREA NITROGEN 22 MG/DL (7-18); CALCIUM LEVEL 9.1 MG/DL (8.8-10.2); CARBON DIOXIDE LEVEL 22 MEQ/L (21-32); CHLORIDE LEVEL 112 MEQ/L (98-107); CREATININE FOR GFR 0.67 MG/DL (0.55-1.30); GLOMERULAR FILTRATION RATE > 60.0 (>39); GLUCOSE, FASTING 96 MG/DL (70-100); MAGNESIUM LEVEL 1.9 MG/DL (1.8-2.4); POTASSIUM SERUM 3.4 MEQ/L (3.5-5.1); SODIUM LEVEL 143 MEQ/L (136-145); TOTAL PROTEIN 7.1 GM/DL (6.4-8.2)
[2017-07-17] MEDS: SYMBICORT 160/4.5MCG INHALER 6GM INH ×2 (08:45→20:00)
[2017-07-17] MEDS ORDERED: LISINOPRIL 20 MG TAB PO (09:00)
[2017-07-17] MEDS: ASPIRIN 81 MG CHEW TABLET PO (09:16)
[2017-07-17] MEDS: FAMOTIDINE 20 MG TAB PO (09:16)
[2017-07-17] MEDS: LISINOPRIL 10 MG TAB PO (09:17)
[2017-07-17 09:18] LABS: CK-MB VALUE MASS 1.5 NG/ML (<3.6); CPK CREATINE PHOSPHOKINASE 130 U/L (26-192); MB/CK RELATIVE INDEX 1.15 (< OR =4)
[2017-07-17] MEDS: HEPARIN SOD (PORCINE) 5000 UNITS/ML VIAL SC ×2 (09:18→21:38)
[2017-07-17] MEDS: DICLOFENAC EPOLAMINE 1.3 % PATCH TOP ×2 (12:47→21:47)
[2017-07-17] MEDS: ACETAMINOPHEN TAB 650MG DOSE (2X325MG) PO (13:02)
[2017-07-17] MEDS ORDERED: PILL CUTTER/CRUSHER XX (13:15)
[2017-07-17] MEDS: ATORVASTATIN 20 MG TAB PO (21:39)
[2017-07-18] MEDS: NS 1,000 ML IV (01:41)
[2017-07-18 05:38] LABS: HEMATOCRIT 41.7 % (36.0-47.0); HEMOGLOBIN 13.4 g/dl (12.0-15.5); MEAN CORPUSCULAR HEMOGLOBIN 28.6 pg (27.0-33.0); MEAN CORPUSCULAR HGB CONC 32.1 g/dl (32.0-36.5); MEAN CORPUSCULAR VOLUME 88.9 fl (80.0-96.0); PLATELET COUNT, AUTOMATED 352 10^3/uL (150-450); RED BLOOD COUNT 4.69 10^6/uL (4.00-5.40); RED CELL DISTRIBUTION WIDTH 15.1 % (11.5-14.5)
[2017-07-18 06:00] LABS: ALBUMIN 3.2 GM/DL (3.2-5.2); ALBUMIN/GLOBULIN RATIO 0.76 (1.00-1.93); ALKALINE PHOSPHATASE 69 U/L (45-117); ALT/SGPT 23 U/L (12-78); ANION GAP 7 MEQ/L (8-16); AST/SGOT 15 U/L (7-37); BILIRUBIN,TOTAL 0.5 MG/DL (0.2-1.0); BLOOD UREA NITROGEN 21 MG/DL (7-18); CALCIUM LEVEL 9.2 MG/DL (8.8-10.2); CARBON DIOXIDE LEVEL 24 MEQ/L (21-32); CHLORIDE LEVEL 114 MEQ/L (98-107); CREATININE FOR GFR 0.71 MG/DL (0.55-1.30); GLOMERULAR FILTRATION RATE > 60.0 (>39); GLUCOSE, FASTING 98 MG/DL (70-100); MAGNESIUM LEVEL 2.1 MG/DL (1.8-2.4); POTASSIUM SERUM 3.3 MEQ/L (3.5-5.1); SODIUM LEVEL 145 MEQ/L (136-145); TOTAL PROTEIN 7.4 GM/DL (6.4-8.2)
[2017-07-18] MEDS: SYMBICORT 160/4.5MCG INHALER 6GM INH (08:00)
[2017-07-18] MEDS: HEPARIN SOD (PORCINE) 5000 UNITS/ML VIAL SC (10:02)
[2017-07-18] MEDS: ASPIRIN 81 MG CHEW TABLET PO (10:03)
[2017-07-18] MEDS: DICLOFENAC EPOLAMINE 1.3 % PATCH TOP (10:03)
[2017-07-18] MEDS: FAMOTIDINE 20 MG TAB PO (10:03)
[2017-07-18] MEDS: LISINOPRIL 10 MG TAB PO (10:06)
[2017-07-18] MEDS: BISACODYL 10 MG SUPP PR (11:45)
[2017-07-18] MEDS: MOM 30ML SUSPENSION UDC PO (12:40)
[2017-07-18] MEDS: SENOKOT S TAB PO (12:40)
== END 2017-07-18 13:38 | DRG 64 ==
LOC: M ICU 07-12 00:30 → M PCU 07-16 17:19 → M ED 17:59 → M ED INP 22:58
PROVIDERS: Hospitalist
DX: I63.9 Cerebral infarction, unspecified (principal); G93.41 Metabolic encephalopathy; R41.4 Neurologic neglect syndrome; F80.2 Mixed receptive-expressive language disorder; I10 Essential (primary) hypertension; J44.9 Chronic obstructive pulmonary disease, unspecified; K21.9 Gastro-esophageal reflux disease without esophagitis; M81.0 Age-related osteoporosis without current pathological fracture; Z86.73 Personal history of transient ischemic attack (TIA), and cerebral infarction without residual deficits; Z88.0 Allergy status to penicillin; Z88.2 Allergy status to sulfonamides; Z88.5 Allergy status to narcotic agent; Z88.1 Allergy status to other antibiotic agents; Z90.710 Acquired absence of both cervix and uterus; Z90.81 Acquired absence of spleen; Z87.891 Personal history of nicotine dependence; Z79.899 Other long term (current) drug therapy

== ENCOUNTER → 2017-07-25 | Outpatient (REF) ==
[2017-07-25 10:45] LABS: HEMATOCRIT 44.2 % (36.0-47.0); HEMOGLOBIN 13.9 g/dl (12.0-15.5); MEAN CORPUSCULAR HEMOGLOBIN 28.6 pg (27.0-33.0); MEAN CORPUSCULAR HGB CONC 31.4 g/dl (32.0-36.5); MEAN CORPUSCULAR VOLUME 90.9 fl (80.0-96.0); PLATELET COUNT, AUTOMATED 400 10^3/uL (150-450); RED BLOOD COUNT 4.86 10^6/uL (4.00-5.40); WHITE BLOOD COUNT 11.4 10^3/uL (4.0-10.0)
[2017-07-25 11:09] LABS: ANION GAP 12 MEQ/L (8-16); BLOOD UREA NITROGEN 32 MG/DL (7-18); CALCIUM LEVEL 9.7 MG/DL (8.8-10.2); CARBON DIOXIDE LEVEL 23 MEQ/L (21-32); CHLORIDE LEVEL 111 MEQ/L (98-107); CREATININE FOR GFR 1.12 MG/DL (0.55-1.30); GLOMERULAR FILTRATION RATE 50.9 (>39); GLUCOSE, FASTING 149 MG/DL (70-100); POTASSIUM SERUM 4.2 MEQ/L (3.5-5.1); SODIUM LEVEL 146 MEQ/L (136-145)
== END ==
DX: I63.9 Cerebral infarction, unspecified (principal); I10 Essential (primary) hypertension

== ENCOUNTER → 2017-07-28 | Outpatient (REF) ==
[2017-07-28 10:52] LABS: ANION GAP 10 MEQ/L (8-16); BLOOD UREA NITROGEN 25 MG/DL (7-18); CALCIUM LEVEL 9.7 MG/DL (8.8-10.2); CARBON DIOXIDE LEVEL 24 MEQ/L (21-32); CHLORIDE LEVEL 107 MEQ/L (98-107); CREATININE FOR GFR 0.95 MG/DL (0.55-1.30); GLOMERULAR FILTRATION RATE > 60.0 (>39); GLUCOSE, FASTING 111 MG/DL (70-100); POTASSIUM SERUM 4.3 MEQ/L (3.5-5.1); SODIUM LEVEL 141 MEQ/L (136-145)
== END ==
DX: I10 Essential (primary) hypertension (principal)

== ENCOUNTER → 2017-08-05 | Outpatient (REF) ==
[2017-08-05 10:39] LABS: MEAN CORPUSCULAR HEMOGLOBIN 28.7 pg (27.0-33.0); MEAN CORPUSCULAR HGB CONC 32.6 g/dl (32.0-36.5); MEAN CORPUSCULAR VOLUME 88.3 fl (80.0-96.0); PLATELET COUNT, AUTOMATED 378 10^3/uL (150-450); RED BLOOD COUNT 4.87 10^6/uL (4.00-5.40); RED CELL DISTRIBUTION WIDTH 14.8 % (11.5-14.5); WHITE BLOOD COUNT 11.7 10^3/uL (4.0-10.0)
[2017-08-05 11:44] LABS: ANION GAP 14 MEQ/L (8-16); BLOOD UREA NITROGEN 38 MG/DL (7-18); CALCIUM LEVEL 10.3 MG/DL (8.8-10.2); CARBON DIOXIDE LEVEL 20 MEQ/L (21-32); CHLORIDE LEVEL 104 MEQ/L (98-107); CREATININE FOR GFR 1.39 MG/DL (0.55-1.30); GLOMERULAR FILTRATION RATE 39.6 (>39); GLUCOSE, FASTING 121 MG/DL (70-100); POTASSIUM SERUM 4.7 MEQ/L (3.5-5.1); SODIUM LEVEL 138 MEQ/L (136-145)
== END ==
DX: I63.9 Cerebral infarction, unspecified (principal); I10 Essential (primary) hypertension

== ENCOUNTER → 2017-11-07 | Outpatient (REF) | payer MEDICARE, MEDICAID ==
[2017-11-07 11:25] LABS: HEMATOCRIT 40.9 % (36.0-47.0); HEMOGLOBIN 13.2 g/dl (12.0-15.5); MEAN CORPUSCULAR HEMOGLOBIN 30.8 pg (27.0-33.0); MEAN CORPUSCULAR HGB CONC 32.3 g/dl (32.0-36.5); MEAN CORPUSCULAR VOLUME 95.3 fl (80.0-96.0); PLATELET COUNT, AUTOMATED 307 10^3/uL (150-450); RED BLOOD COUNT 4.29 10^6/uL (4.00-5.40); RED CELL DISTRIBUTION WIDTH 15.9 % (11.5-14.5)
[2017-11-07 11:59] LABS: ANION GAP 11 MEQ/L (8-16); BLOOD UREA NITROGEN 33 MG/DL (7-18); CALCIUM LEVEL 9.4 MG/DL (8.8-10.2); CARBON DIOXIDE LEVEL 24 MEQ/L (21-32); CHLORIDE LEVEL 112 MEQ/L (98-107); CREATININE FOR GFR 0.94 MG/DL (0.55-1.30); GLOMERULAR FILTRATION RATE > 60.0 (>39); GLUCOSE, FASTING 115 MG/DL (70-100); POTASSIUM SERUM 4.3 MEQ/L (3.5-5.1); SODIUM LEVEL 147 MEQ/L (136-145)
== END ==
DX: I10 Essential (primary) hypertension (principal); I67.9 Cerebrovascular disease, unspecified
CPT/HCPCS: 80048

== ENCOUNTER 2018-01-25 13:33 | Inpatient (IN) | payer MEDICARE, MEDICAID ==
[2018-01-25 14:03] LABS: BEDSIDE GLUCOSE 111 MG/DL (83-110)
[2018-01-25 14:07] LABS: HEMOGLOBIN 13.2 g/dl (12.0-15.5); MEAN CORPUSCULAR HGB CONC 32.2 g/dl (32.0-36.5); MEAN CORPUSCULAR VOLUME 93.2 fl (80.0-96.0); PLATELET COUNT, AUTOMATED 335 10^3/uL (150-450); RED CELL DISTRIBUTION WIDTH 13.5 % (11.5-14.5); WHITE BLOOD COUNT 13.1 10^3/uL (4.0-10.0)
[2018-01-25 14:13] LABS: ADD MANUAL DIFFER YES; DIFF SLIDE NUMBER 132; POSITIVE DIFF POS FLAG
[2018-01-25 14:18] LABS: PARTIAL THROMBOPLASTIN TIME 30.5 SECONDS (25.4-37.6); PROTHROMBIN TIME 13.3 SECONDS (12.1-14.4)
[2018-01-25 14:21] LABS: VENOUS BASE EXCESS 0.7 (-2.0-2.0); VENOUS HCO3 25.8 MEQ/L (23.0-27.0); VENOUS O2 SATURATION 95.6 % (60.0-80.0); VENOUS PARTIAL PRESSURE CO2 43.1 mmHg (38.0-50.0); VENOUS PARTIAL PRESSURE O2 76.8 mmHg (30.0-50.0); VENOUS PH 7.395 UNITS (7.330-7.430); VENOUS STANDARD HCO3 25.1 MEQ/L; VENOUS TOTAL CO2 27.1 MEQ/L (24.0-28.0)
[2018-01-25 14:45] LABS: EOSINOPHILS 4 % (0-5); LYMPHOCYTES 34 % (16-52); MONOCYTES 11 % (0-8); NEUTROPHILS 51 % (35-75)
[2018-01-25 14:46] LABS: ANION GAP 10 MEQ/L (8-16); BLOOD UREA NITROGEN 29 MG/DL (7-18); CARBON DIOXIDE LEVEL 24 MEQ/L (21-32); CHLORIDE LEVEL 109 MEQ/L (98-107); CPK CREATINE PHOSPHOKINASE 80 U/L (26-192); GLOMERULAR FILTRATION RATE > 60.0 (>39); GLUCOSE, FASTING 106 MG/DL (70-100); PLATELET ESTIMATE NORMAL (NORMAL); POTASSIUM SERUM 4.3 MEQ/L (3.5-5.1); SODIUM LEVEL 143 MEQ/L (136-145); TROPONIN I < 0.02 NG/ML (< 0.10)
[2018-01-25 14:55] LABS: AMMONIA 34 uMOL/L (<32)
[2018-01-25] MEDS ORDERED: ASPIRIN 325 MG TAB XX (15:30)
[2018-01-25] MEDS ORDERED: ACETAMINOPHEN 650 MG SUPP PR (17:00)
[2018-01-25] MEDS ORDERED: ONDANSETRON 4MG/2ML VIAL (J2405) IV (17:00)
[2018-01-25] MEDS: MIDAZOLAM INJ 2 MG/2 ML VIAL (J2250) IV (17:26)
[2018-01-25] MEDS: ASPIRIN 300 MG SUPP PR (18:25)
[2018-01-25] MEDS: NS 1,000 ML IV (19:00)
[2018-01-25 19:33] LABS: CPK CREATINE PHOSPHOKINASE 89 U/L (26-192); MB/CK RELATIVE INDEX 1.24 (< OR =4); TROPONIN I < 0.02 NG/ML (< 0.10)
[2018-01-25 22:37] LABS: KETONE, URINE AUTO RFX NEGATIVE (NEGATIVE); MUCUS, URINE RFX SMALL (NEGATIVE); RBC, URINE AUTO RFX 18 /HPF (0-3); SPECIFIC GRAVITY UR AUTO RFX 1.016 (1.002-1.035); SQUAM EPITHELIAL CELL UR AURFX 2 /HPF (0-6)
[2018-01-25 22:57] LABS: LEUKOCYTE ESTERASE UR AUTO RFX 3+ (NEGATIVE); NITRITE, URINE AUTO RFX POSITIVE (NEGATIVE); WBC, URINE AUTO RFX 105 /HPF (0-3)
[2018-01-25] MEDS: SYMBICORT 160/4.5MCG INHALER 6GM INH (23:45)
[2018-01-26 01:49] LABS: CPK CREATINE PHOSPHOKINASE 95 U/L (26-192); MB/CK RELATIVE INDEX 1.58 (< OR =4); TROPONIN I 0.02 NG/ML (< 0.10)
[2018-01-26] MEDS: NS 1,000 ML IV ×2 (06:35→15:24)
[2018-01-26] MEDS: SYMBICORT 160/4.5MCG INHALER 6GM INH ×2 (07:25→20:26)
[2018-01-26] MEDS: ASPIRIN 300 MG SUPP PR (08:44)
[2018-01-26 09:22] LABS: BASO # 0.1 10^3/uL (0.0-0.2); BASO % 0.3 % (0.0-1.0); EOS # 0.1 10^3/uL (0.0-0.50); EOS % 0.8 % (0.0-3.0); HEMATOCRIT 38.2 % (36.0-47.0); HEMOGLOBIN 12.4 g/dl (12.0-15.5); IMMATURE GRANULOCYTE % 0.4 % (0-3.0); LYMPH # 3.4 10^3/uL (1.5-4.5); MEAN CORPUSCULAR HEMOGLOBIN 30.3 pg (27.0-33.0); MEAN CORPUSCULAR HGB CONC 32.5 g/dl (32.0-36.5); MEAN CORPUSCULAR VOLUME 93.4 fl (80.0-96.0); MONO # 1.1 10^3/uL (0.0-0.8); MONO % 7.2 % (0.0-5.0); NEUTROPHILS # 10.8 10^3/uL (1.8-7.7); NEUTROPHILS % 69.3 % (36.0-66.0); PLATELET COUNT, AUTOMATED 303 10^3/uL (150-450); RED BLOOD COUNT 4.09 10^6/uL (4.00-5.40); RED CELL DISTRIBUTION WIDTH 13.6 % (11.5-14.5); WHITE BLOOD COUNT 15.6 10^3/uL (4.0-10.0)
[2018-01-26 09:49] LABS: ANION GAP 8 MEQ/L (8-16); BLOOD UREA NITROGEN 24 MG/DL (7-18); CARBON DIOXIDE LEVEL 23 MEQ/L (21-32); CHLORIDE LEVEL 112 MEQ/L (98-107); CHOLESTEROL LEVEL 161 MG/DL (<200); CHOLESTEROL RISK RATIO 3.156 (<5); CREATININE FOR GFR 0.84 MG/DL (0.55-1.30); GLOMERULAR FILTRATION RATE > 60.0 (>39); GLUCOSE, FASTING 100 MG/DL (70-100); HDL CHOLESTEROL 51 MG/DL (>40); LDL CHOLESTEROL 84 MG/DL (<100); MAGNESIUM LEVEL 2.1 MG/DL (1.8-2.4); NON-HDL-C 110 MG/DL; SODIUM LEVEL 143 MEQ/L (136-145); TRIGLYCERIDES LEVEL 129 MG/DL (<150)
[2018-01-26 09:52] LABS: CPK CREATINE PHOSPHOKINASE 97 U/L (26-192); MB/CK RELATIVE INDEX 1.24 (< OR =4); TROPONIN I < 0.02 NG/ML (< 0.10)
[2018-01-26] MEDS ORDERED: ISOVUE-370 76% 100ML VIAL (Q9967) As Ordered (12:15)
[2018-01-27] MEDS: NS 1,000 ML IV (00:38)
[2018-01-27] MEDS ORDERED: SLF 3 ML SYR IV (02:45)
[2018-01-27] MEDS: SLF 3 ML SYR IV ×2 (05:00→12:33)
[2018-01-27 06:14] LABS: BASO # 0.1 10^3/uL (0.0-0.2); BASO % 0.5 % (0.0-1.0); EOS # 0.2 10^3/uL (0.0-0.50); EOS % 1.3 % (0.0-3.0); HEMATOCRIT 36.4 % (36.0-47.0); HEMOGLOBIN 11.5 g/dl (12.0-15.5); IMMATURE GRANULOCYTE % 0.4 % (0-3.0); LYMPH # 3.4 10^3/uL (1.5-4.5); LYMPH % 26.6 % (24.0-44.0); MEAN CORPUSCULAR HEMOGLOBIN 29.9 pg (27.0-33.0); MEAN CORPUSCULAR HGB CONC 31.6 g/dl (32.0-36.5); MEAN CORPUSCULAR VOLUME 94.8 fl (80.0-96.0); MONO % 7.7 % (0.0-5.0); NEUTROPHILS # 8.1 10^3/uL (1.8-7.7); NEUTROPHILS % 63.5 % (36.0-66.0); PLATELET COUNT, AUTOMATED 294 10^3/uL (150-450); RED BLOOD COUNT 3.84 10^6/uL (4.00-5.40); RED CELL DISTRIBUTION WIDTH 13.8 % (11.5-14.5); WHITE BLOOD COUNT 12.7 10^3/uL (4.0-10.0)
[2018-01-27 06:36] LABS: ANION GAP 7 MEQ/L (8-16); BLOOD UREA NITROGEN 20 MG/DL (7-18); CALCIUM LEVEL 8.4 MG/DL (8.8-10.2); CARBON DIOXIDE LEVEL 22 MEQ/L (21-32); CHLORIDE LEVEL 116 MEQ/L (98-107); CREATININE FOR GFR 0.78 MG/DL (0.55-1.30); GLOMERULAR FILTRATION RATE > 60.0 (>39); GLUCOSE, FASTING 85 MG/DL (70-100); MAGNESIUM LEVEL 2.1 MG/DL (1.8-2.4); POTASSIUM SERUM 3.6 MEQ/L (3.5-5.1); SODIUM LEVEL 145 MEQ/L (136-145)
[2018-01-27] MEDS: SYMBICORT 160/4.5MCG INHALER 6GM INH (07:25)
[2018-01-27] MEDS: ASPIRIN 300 MG SUPP PR (08:44)
[2018-01-27] MEDS: SCOPOLAMINE 1MG TRANSDERMAL PATCH TOP (15:15)
[2018-01-27] MEDS: MORPHINE 10MG/0.5ML ORAL CONCENTRATE SOLUTION U/D SL ×5 (15:15→23:24)
[2018-01-28] MEDS: MORPHINE 10MG/0.5ML ORAL CONCENTRATE SOLUTION U/D SL ×9 (01:40→23:26)
[2018-01-29] MEDS: MORPHINE 10MG/0.5ML ORAL CONCENTRATE SOLUTION U/D SL ×5 (02:42→15:00)
[2018-01-29] MEDS ORDERED: MORPHINE SULF IN 0.9% NACL 100 MG in APPROPRIATE DILUENT 1 EA IV (16:00)
[2018-01-29] MEDS: MORPHINE SULF IN 0.9% NACL 100 MG in APPROPRIATE DILUENT 1 EA IV (17:47)
[2018-01-30] MEDS: MORPHINE SULF IN 0.9% NACL 100 MG in APPROPRIATE DILUENT 1 EA IV ×4 (16:52→23:00)
[2018-01-31] MEDS: MORPHINE SULF IN 0.9% NACL 100 MG in APPROPRIATE DILUENT 1 EA IV ×2 (00:31→13:56)
[2018-01-31] MEDS: LORazepam 2 MG/ML VIAL (J2060) IV (08:08)
== END 2018-01-31 17:28 | disposition expired | DRG 65 ==
LOC: M MSPAV 01-27 15:44 → M ED 13:33 → M ED INP 16:56 → M PCU 19:47
DX: I63.231 Cerebral infarction due to unspecified occlusion or stenosis of right carotid arteries (principal); I69.154 Hemiplegia and hemiparesis following nontraumatic intracerebral hemorrhage affecting left non-dominant side; I69.151 Hemiplegia and hemiparesis following nontraumatic intracerebral hemorrhage affecting right dominant side; G93.49 Other encephalopathy; I10 Essential (primary) hypertension; J44.9 Chronic obstructive pulmonary disease, unspecified; F32.9 Major depressive disorder, single episode, unspecified; F80.2 Mixed receptive-expressive language disorder; H40.9 Unspecified glaucoma; Z51.5 Encounter for palliative care; Z66 Do not resuscitate; M19.90 Unspecified osteoarthritis, unspecified site; R13.10 Dysphagia, unspecified; I67.1 Cerebral aneurysm, nonruptured; Z98.2 Presence of cerebrospinal fluid drainage device; I69.320 Aphasia following cerebral infarction; K21.0 Gastro-esophageal reflux disease with esophagitis; Z87.891 Personal history of nicotine dependence; Z79.82 Long term (current) use of aspirin; Z79.899 Other long term (current) drug therapy; Z88.2 Allergy status to sulfonamides; Z88.1 Allergy status to other antibiotic agents; Z88.5 Allergy status to narcotic agent; Z88.8 Allergy status to other drugs, medicaments and biological substances